=== PATIENT | female | born 1975 | race Caucasian/White ===

== ENCOUNTER 2021-05-15 21:22 | Inpatient (IN) | payer MEDICAID, SELFPAY ==
--- NOTE | ~2021-05-15 | XR_ITS ---
EXAMINATION: XR CHEST CLINICAL INFORMATION: Shortness of breath COMPARISON: Chest x-ray 04/30/2020 TECHNIQUE: 2 views of the chest were obtained. FINDINGS: There is increased interstitial lung markings and prominent central hilar vessels consistent with interstitial edema, mild congestive heart failure. No overt pulmonary edema. No large pleural effusion. Cardiac mediastinal contours are normal. Heart size is normal. XR/XR chest 2V IMPRESSION: Mild congestive heart failure with interstitial edema.
[2021-05-15 21:36] VITALS: BP 107/60; PULSE 120; RESP 21; TEMP 36.1; O2SAT 88; BMI 24.2
--- NOTE | 2021-05-15 21:39 | ECG_ITS ---
Test Reason : DIFFICULTY BREATHING Blood Pressure : / mmHG Vent. Rate : 102 BPM Atrial Rate : 102 BPM P-R Int : 124 ms QRS Dur : 092 ms QT Int : 364 ms P-R-T Axes : 051 047 051 degrees QTc Int : 474 ms Sinus tachycardia Possible Left atrial enlargement Left ventricular hypertrophy with repolarization abnormality Abnormal ECG When compared with ECG of 27-MAY-2019 23:49, Non-specific change in ST segment in Anterolateral leads Nonspecific T wave abnormality now evident in Inferior leads Nonspecific T wave abnormality, worse in Anterolateral leads Referred By: Melyssa Sim Electronically Signed By:Bryan Grigsby
--- NOTE | 2021-05-15 21:40 | ED.SOB ---
HPI - SOB/Dyspnea General Chief Complaint: Dyspnea Stated Complaint: sob Time Seen by Provider: 05/15/21 21:39 Source: patient Mode of arrival: EMS History of Present Illness HPI Narrative: This is a 45-year-old female with history of CKD and reports shortness of breath and productive cough of green, foul-smelling sputum for 9 days as well as subjective fevers and increasing shortness of breath with subsequent development of chest wall pain on deep inspiration. 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 Related Data Allergies Allergy/AdvReac Type Severity Reaction Status Date / Time tramadol [TRAMADOL] Allergy Intermediate SWELLING Unverified 08/10/20 16:45 UP OF BILATERAL HANDS acetaminophen [ACETAMINOPHEN] AdvReac Mild VOMITTING Unverified 08/10/20 16:45 Review of Systems Review of Systems: Pertinent positives and negatives as stated in HPI 10 point review of systems is otherwise negative. PMFSH Past Medical History Source: nursing notes reviewed Medical History (Updated 05/16/21 @ 03:18 by Melyssa Sim MD) Asthma Drug abuse in remission Social History Social History Alcohol intake: never Patient Tobacco Use Status: Current everyday Tobacco user Use of substances other than those prescribed or required for medical reasons: No Any prior treatment program specific to substance use: Yes (sober 9 months) Advance Directives: No Advance Directives Information Provided: Yes Patient : No Physical Exam Vital Signs: Vital Signs: Last Vital Signs Temp 98.9 F 05/15/21 22:42 Pulse 116 H 05/15/21 23:43 Resp 16 05/15/21 23:43 BP 103/69 05/15/21 23:43 Pulse Ox 80 L 05/16/21 00:26 Body Mass Index 24.2 VITAL SIGNS: Reviewed. GENERAL: Well developed, well nourished, in no acute distress. HEAD: Normocephalic/atraumatic EYES: PERRLA, EOMI OROPHARYNX: no oral lesions noted, posterior pharynx clear, dry mucosa NECK: Supple, no adenopathy LUNGS: Bilateral wheeze as well as scattered rhonchi and decreased breath sounds on the right when compared to left CARDIOVASCULAR: Regular rate and rhythm without noted murmurs ABDOMEN: Soft, non-tender, non-distended with bowel sounds. SKIN: Inspection of the skin reveals no rashes, but track garcia scarred over from prior IVDA NEUROLOGIC: Alert and oriented x 4. Strength and sensation to light touch were grossly intact x 4. Course Course Course Narrative: 2143: This is a 45-year-old female with history and clinical presentation consistent with bronchitis and possible pneumonia and suspect underlying COPD. 0010: After extensive discussion with patient regarding leaving against medical advice and evaluation that patient's oxygen on room air was 78% with a good pleth and correlation with the court recording monitor, the decision was made that patient was likely mildly confused secondary to hypoxia and that she should be sectioned for her own safety. 0015: Nursing airplane pilot supervisor notified. 0030: Section 12 was written under concerns for health with the determination based on capacity secondary to hypoxia. In addition, is at bedside and is providing additional collaboration with ER personnel, and care team pharmaceutical sales representative has been consult at for additional evaluation. At present patient is being encouraged to keep the oxygen in place. 0200: On discussion with the care team pharmaceutical sales representative it was determined that Section 12 could not be written unless patient has concomitant history of any form of mental illness and on review of all prior visits there is no mention of anxiety or other mental illness diagnoses. Therefore, the Section 12 is revoked and Case Management will be consulted to establish health care proxy as it is still determined that this patient does not have capacity secondary to medical condition of hypoxia on room air to 78%. Review of all investigations with mixed picture of pulmonary congestion identified on chest x-ray and CO2 retention as well as receiving IV antibiotics, sepsis fluids, and VBG was noted to have a pCO2 of 59 and she received albuterol treatment and in discussion with the inpatient hospitalist he was informed that patient did not receive steroids at this time. Inpatient hospitalist is agreeable for admission. MDM - SOB/Dyspnea Lab Data Result diagrams: 05/15/21 22:30 05/15/21 22:30 Labs: Lab Results 05/15/21 05/15/21 05/15/21 Range/Units 22:21 22:30 22:30 WBC 11.7 H (4.8-10.8) X10*3/uL RBC 4.27 (4.20-5.50) X10*6/uL Hgb 10.6 L (12.0-16.0) g/dl Hct 35.1 L (37-47) % MCV 82.2 (80-98) fL MCH 24.8 L (27.0-33.0) pg MCHC 30.2 L (31.0-35.0) g/dl RDW 15.8 (11.0-16.0) % Plt Count 417 H (160-400) X10*3/uL MPV 9.3 L (9.4-12.3) fL Immature Gran % (Auto) 1.4 H (0.0-0.4) % Neut % (Auto) 72.6 (45-73) % Lymph % (Auto) 19.4 L (20-40) % [place] % (Auto) 3.5 (2-11) % Eos % (Auto) 2.8 (0-4) % Baso % (Auto) 0.3 (0-2) % Lymph # (Auto) 2.3 (1.2-4.9) X10*3/uL [place] # (Auto) 0.4 (0.1-1.2) X10*3/uL Eos # (Auto) 0.3 (0.0-0.4) X10*3/uL Baso # (Auto) 0.0 (0.0-0.2) X10*3/uL Abs Immat Gran (auto) 0.16 H (0.00-0.03) X10*3/uL Absolute Neuts (auto) 8.5 H (2.0-8.3) X10*3/uL Absolute Nucleated RBC 0.000 (0.0-0.012) X10*3/uL Nucleated RBC % (auto) 0.0 (0.0-0.2) /100WBC VBG pH (7.32-7.43) VBG pCO2 mmHg VBG pO2 mmHg VBG HCO3 (22-26) mmol/L VBG O2 Saturation % VBG Base Excess mmol/L Sodium 141 (135-145) mmol/L Potassium 3.4 (3.3-5.1) mmol/L Chloride 97 (96-108) mmol/L Carbon Dioxide 32 H (22-29) mmol/L Anion Gap 15 (12-20) BUN 10 (9-16) mg/dL Creatinine 0.81 (0.5-1.4) mg/dL Estim Creat Clear Calc 71.7 Estimated GFR > 60 Random Glucose 93 (60-115) mg/dL Lactic Acid (0.5-2.0) mmol/L Calcium 9.0 (8.4-10.2) mg/dL Total Bilirubin 0.6 (0.0-1.0) mg/dL AST 13 (5-31) U/L ALT < 6 (0-31) U/L Alkaline Phosphatase 127 H (39-117) U/L Troponin I High Sens (<3.5-17.0) ng/L B-Natriuretic Peptide (<100) pg/mL Total Protein 8.3 H (6.5-8.0) g/dL Albumin 3.5 (3.5-5.0) g/dL COVID-19 (NEGRITO) Negative (Negative) COVID-19 Clin Com See Note 05/15/21 05/15/21 05/15/21 Range/Units 22:30 22:30 22:45 WBC (4.8-10.8) X10*3/uL RBC (4.20-5.50) X10*6/uL Hgb (12.0-16.0) g/dl Hct (37-47) % MCV (80-98) fL MCH (27.0-33.0) pg MCHC (31.0-35.0) g/dl RDW (11.0-16.0) % Plt Count (160-400) X10*3/uL MPV (9.4-12.3) fL Immature Gran % (Auto) (0.0-0.4) % Neut % (Auto) (45-73) % Lymph % (Auto) (20-40) % [place] % (Auto) (2-11) % Eos % (Auto) (0-4) % Baso % (Auto) (0-2) % Lymph # (Auto) (1.2-4.9) X10*3/uL [place] # (Auto) (0.1-1.2) X10*3/uL Eos # (Auto) (0.0-0.4) X10*3/uL Baso # (Auto) (0.0-0.2) X10*3/uL Abs Immat Gran (auto) (0.00-0.03) X10*3/uL Absolute Neuts (auto) (2.0-8.3) X10*3/uL Absolute Nucleated RBC (0.0-0.012) X10*3/uL Nucleated RBC % (auto) (0.0-0.2) /100WBC VBG pH 7.41 (7.32-7.43) VBG pCO2 59 mmHg VBG pO2 45 mmHg VBG HCO3 37 H (22-26) mmol/L VBG O2 Saturation 73.0 % VBG Base Excess 11.2 mmol/L Sodium (135-145) mmol/L Potassium (3.3-5.1) mmol/L Chloride (96-108) mmol/L Carbon Dioxide (22-29) mmol/L Anion Gap (12-20) BUN (9-16) mg/dL Creatinine (0.5-1.4) mg/dL Estim Creat Clear Calc Estimated GFR Random Glucose (60-115) mg/dL Lactic Acid 1.4 (0.5-2.0) mmol/L Calcium (8.4-10.2) mg/dL Total Bilirubin (0.0-1.0) mg/dL AST (5-31) U/L ALT (0-31) U/L Alkaline Phosphatase (39-117) U/L Troponin I High Sens < 3.5 (<3.5-17.0) ng/L B-Natriuretic Peptide 18 (<100) pg/mL Total Protein (6.5-8.0) g/dL Albumin (3.5-5.0) g/dL COVID-19 (NEGRITO) (Negative) COVID-19 Clin Com ECG Data Attestation: I personally reviewed and interpreted this ECG as follows: Prior ECG tracings: available for review (05/27/2019 changes consistent with repolarization otherwise unchanged) Interpretation: Sinus tachycardia, HR-102, no evidence of acute ischemia, [place]/QRS/QTC are within normal limits. Discharge Plan Discharge Clinical Impression: COPD exacerbation, Hypoxia, Pneumonia, Acute hypoxemic respiratory failure Patient Disposition: Admitted As Inpatient
--- NOTE | 2021-05-15 22:18 | PC.NURSE ---
Ekg completed, labs being drawn and Iv placed. pt placed on monitor
[2021-05-15 22:37] LABS: MANUAL DIFF FLAG NO
[2021-05-15 22:39] LABS: Basophils Percent Auto 0.3 % (0-2); Eosinophils Absolute Auto 0.3 X10*3/uL (0.0-0.4); Eosinophils Percent Auto 2.8 % (0-4); Hematocrit 35.1 % (37-47); Hemoglobin 10.6 g/dl (12.0-16.0); Imm Gran Abs Auto 0.16 X10*3/uL (0.00-0.03); Imm Gran Pct Auto 1.4 % (0.0-0.4); Lymphocytes Absolute Auto 2.3 X10*3/uL (1.2-4.9); Lymphocytes Percent Auto 19.4 % (20-40); Mean Corpuscular HGB Conc 30.2 g/dl (31.0-35.0); Mean Corpuscular Hemoglobin 24.8 pg (27.0-33.0); Mean Corpuscular Volume 82.2 fL (80-98); Mean Platelet Volume 9.3 fL (9.4-12.3); Monocytes Absolute Auto 0.4 X10*3/uL (0.1-1.2); Monocytes Percent Auto 3.5 % (2-11); Neutrophils Absolute Auto 8.5 X10*3/uL (2.0-8.3); Neutrophils Percent Auto 72.6 % (45-73); Platelet Count 417 X10*3/uL (160-400); Red Blood Count 4.27 X10*6/uL (4.20-5.50); Red Cell Distribution Width 15.8 % (11.0-16.0); White Blood Count 11.7 X10*3/uL (4.8-10.8)
[2021-05-15 22:40] VITALS: O2SAT 77
[2021-05-15 22:42] VITALS: BP 93/53; PULSE 95; RESP 20; TEMP 37.2; O2SAT 94
[2021-05-15 22:44] LABS: COVID-19 Test Negative (Negative)
[2021-05-15] MEDS: Albuterol Sulfate (0.083%) 2.5 MG/3 ML VIAL.NEB 7.5 MG INHALE (22:49)
--- NOTE | 2021-05-15 22:50 | PC.NURSE ---
THIS RN WAS IN PT ROOM PLACING IV VIA U/C, PT WAS BREATHING RA, OCCASIONAL DRY COUGH, BREATHING WITH EASE. WHEN FINISHED SPO2 PROBE PLACE ON PT'S FINGER, W/ REGULAR EVEN PLETH PT SPO2 AT 77%, PT PLACED ON 6L O2 NC, SPO2 SLOWLY INCREASED TO 96%, O2 TITRATED DOWN TO 3L, RT TO BEDSIDE TO ADMINISTER UPDRAFT, DR LONG NOTIFIED.
[2021-05-15 22:52] VITALS: PULSE 91; O2SAT 95
[2021-05-15 22:53] LABS: Venous Blood Gas Refer to POC result
[2021-05-15 22:53] LABS: VBG Base Excess 11.2 mmol/L; VBG HCO3 37 mmol/L (22-26); VBG pCO2 59 mmHg; VBG pH 7.41 (7.32-7.43); VBG pO2 45 mmHg
[2021-05-15 22:58] LABS: Lactic Acid 1.4 mmol/L (0.5-2.0)
[2021-05-15] MEDS: Furosemide 20 MG/2 ML VIAL IVPUSH (23:01)
[2021-05-15] MEDS: SODIUM CHLORIDE 1863 ML IVCONT (23:03)
[2021-05-15 23:04] LABS: Alanine Aminotransferase < 6 U/L (0-31); Albumin Level 3.5 g/dL (3.5-5.0); Alkaline Phosphatase 127 U/L (39-117); Anion Gap 15 (12-20); Aspartate Amino Transferase 13 U/L (5-31); Bilirubin Total 0.6 mg/dL (0.0-1.0); Blood Urea Nitrogen 10 mg/dL (9-16); Carbon Dioxide 32 mmol/L (22-29); Chloride 97 mmol/L (96-108); Creatinine Clr Calc Pharmacy 71.7; Estimated Glomerular Filt Rate > 60; Glucose Random 93 mg/dL (60-115); Potassium 3.4 mmol/L (3.3-5.1); Sodium 141 mmol/L (135-145); Total Protein 8.3 g/dL (6.5-8.0)
--- NOTE | 2021-05-15 23:12 | PC.NURSE ---
PT PLACED ON MONITOR, LABS SENT AND IV PLACE. RESPIRATORY THERAPIST IN TO SEE PT.
[2021-05-15 23:38] LABS: Troponin-I High Sensitivity < 3.5 ng/L (<3.5-17.0)
--- NOTE | 2021-05-15 23:42 | PC.NURSE ---
pt ambulated to the bathroom with steady gait. on return to bed sat 88% on room air. pt placed on 3l nc sat improved to 93% pt has a nonprod cough.
[2021-05-15 23:43] VITALS: BP 103/69; PULSE 116; RESP 16; O2SAT 93
[2021-05-15 23:51] LABS: B Type Natriuretic Peptide 18 pg/mL (<100)
[2021-05-16] VITALS (7 sets, daily range): BP systolic 90–112; BP diastolic 54–76; PULSE 63–97; RESP 16–23; O2SAT 80–95
--- NOTE | 2021-05-16 00:39 | PC.NURSE ---
pt for the last hour has been asking to leave after she made a phone call home. pt sat 78% on room air. Dr Sim and Dr thompson and clerical warehouseman have talked with the pt with her at her bed side. pt states she wants to griev and go home to her 2 small dogs that she calls her children. pt testing with walking on room air and pt sat did not improve.
--- NOTE | 2021-05-16 02:05 | PC.NURSE ---
ASSUMED CARE OF PT. PT RETURNS FROM RESTROOM AND PT MOVED TO ROOM #6 FOR OBSERVATION. PT CHG INTO GOWN AND PLACED ON MONITOR WITH A HR OF 91. PT IS A DIFFICULT STICK AND TRYING TO REPLACE IV THAT WAS PULLED OUT. PT AWAITING FOR ANTIBIOTICS. PT ON 4L NC WITH A PO OF 95%. WILL CONTINUE TO MONITOR PT.
--- NOTE | 2021-05-16 02:31 | PC.NURSE ---
PT REMAINS CALM AND COOPERATIVE IN ROOM. IV PLACED TO LEFT SHOULDER AREA, PT MEDICATED WITH ANTIBIOTICS PER EMAR. PT REFUSING NICOTINE PATCH AT THIS TIME.
[2021-05-16] MEDS: Piperacillin Sodium/Tazobactam 3.375 GM in 0.9 % Sodium Chloride 50 ML IV (02:36)
[2021-05-16] MEDS: cefTRIAXone sodium 1 GM in 0.9 % Sodium Chloride 50 ML IV (03:00)
--- NOTE | 2021-05-16 03:01 | P.HPHOSP_ITS ---
History of Present Illness Date of Service: 05/16/21 Chief Complaint: SOB 45-year-old female with a past medical history of IV drug abuse, polysubstance abuse-reported she lost use 90 days ago; tobacco dependence, presented to the hospital today with a chief complaint of shortness of breath. Patient reported that for the past 9 days she has been having shortness of breath which gradually worsening, also complains of dyspnea on exertion; mentions that she has been coughing a lot with sputum production; and she also complains of posttussive chest discomfort. Denies any abdominal pain. Mentioned that few episodes of diarrhea, denies any blood in the stool. Mentioned that for the same period of time she has changed her kiran, became husky attributed to severe coughing; denies any dysphagia or odynophagia. Mentions that she has not been eating good. Also complains of generalized weakness and swelling in the legs. Denies any urinary symptoms. Review of all other systems is negative except mentioned above ER course: Per ER team patient noted to be hypoxic to 78% at 1 time, subsequently placed on supplemental oxygen; patient oxygenation improved on supplemental oxygen; patient 1 time wanted to leave against medical advice-ER physician documented patient was not appropriate since at that time and decided patient lacked capacity, patient kept on medical hold. ER physician also mentioned that COVID-19 are negative; chest x-ray concern for congestion; patient was given Lasix. Also per ER physician based on her presentation concern for pneumonia, given antibiotics and fluids. [facility] Medical History (Updated 05/16/21 @ 03:18 by Melyssa Sim MD) Asthma Drug abuse in remission Social History Alcohol intake: never Patient Tobacco Use Status: Current everyday Tobacco user Use of substances other than those prescribed or required for medical reasons: No Any prior treatment program specific to substance use: Yes (sober 9 months) Advance Directives: No Advance Directives Information Provided: Yes Patient : No Meds Allergies Allergy/AdvReac Type Severity Reaction Status Date / Time tramadol [TRAMADOL] Allergy Intermediate SWELLING Unverified 08/10/20 16:45 UP OF BILATERAL HANDS acetaminophen [ACETAMINOPHEN] AdvReac Mild VOMITTING Unverified 08/10/20 16:45 Active Medications: Current Medications Generic Name Dose Route Start Last Admin Trade Name Freq PRN Reason Stop Dose Admin Acetaminophen 650 mg 05/16/21 02:56 Acetaminophen 325 Mg Tablet PO Q6H PRN Pain, Mild (Pain Scale 1-3) Albuterol/Ipratropium 3 ml 05/16/21 08:00 Albuterol/Iprat 2.5/0.5mg 3 Ml Ampul.Neb INHALE RQ4H WHILE AWAKE [facility] Azithromycin 500 mg 05/16/21 03:00 Azithromycin 500 Mg Tablet PO Q24H [facility] Enoxaparin Sodium 40 mg 05/16/21 03:00 Enoxaparin Sodium 40 Mg/0.4 Ml Syringe SUBCUT Q24H [facility] Famotidine 20 mg 05/16/21 09:00 Famotidine/Pf 20 Mg/2 Ml Vial IVPUSH BID [facility] Ceftriaxone Sodium 1 gm/ 50 mls @ 100 mls/hr 05/16/21 03:00 Sodium Chloride IV Q24H [facility] Methylprednisolone Sodium Succinate 40 mg 05/16/21 03:00 Methylprednisolone Sod Succ 40 Mg/Ml Vial IVPUSH Q6H [facility] Senna 17.2 mg 05/16/21 02:56 Sennosides 8.6 Mg Tablet PO BEDTIME PRN Constipation Sodium Chloride 3 ml 05/16/21 08:00 0.9 % Sodium Chloride Flush 3 Ml Syringe IVFLUSH QSHIFT [facility] Home Medications Medication Instructions Recorded Confirmed Last Taken Type No Known Home Meds 05/16/21 05/16/21 Unknown History Physical Exam Vital Signs and Narrative: Vital Signs: Last Vital Signs Temp 98.9 F 05/15/21 22:42 Pulse 116 H 05/15/21 23:43 Resp 16 05/15/21 23:43 BP 103/69 05/15/21 23:43 Pulse Ox 80 L 05/16/21 00:26 Body Mass Index 24.2 Gen: Appears be in no acute distress, voice is husky, speaks in full sentences, on supplemental oxygen; in bed HEENT: NCAT, dry mucosa. Pulmonary: Slightly diminished breath sounds, noted and scattered end- expiratory wheezing; CVS: Normal S1-S2 Abdomen: BS+, Soft, Nontender Extremities: Warm well perfused; trace pedal edema Neuro: Alert and awake.; grossly nonfocal; oriented x3 Results Labs CBC and Chem 7: 05/16/21 03:55 05/16/21 03:55 Labs: Laboratory Results - last 24 hr 05/15/21 05/15/21 05/15/21 22:21 22:30 22:30 MCV 82.2 MCH 24.8 L MCHC 30.2 L RDW 15.8 Plt Count 417 H MPV 9.3 L Immature Gran % (Auto) 1.4 H Neut % (Auto) 72.6 Lymph % (Auto) 19.4 L [place] % (Auto) 3.5 Eos % (Auto) 2.8 Baso % (Auto) 0.3 Lymph # (Auto) 2.3 [place] # (Auto) 0.4 Eos # (Auto) 0.3 Baso # (Auto) 0.0 Abs Immat Gran (auto) 0.16 H Absolute Neuts (auto) 8.5 H Absolute Nucleated RBC 0.000 Nucleated RBC % (auto) 0.0 VBG pH VBG pCO2 VBG pO2 VBG HCO3 VBG O2 Saturation VBG Base Excess Anion Gap 15 Estim Creat Clear Calc 71.7 Estimated GFR > 60 Random Glucose 93 Lactic Acid Calcium 9.0 Total Bilirubin 0.6 AST 13 ALT < 6 Alkaline Phosphatase 127 H Troponin I High Sens B-Natriuretic Peptide Total Protein 8.3 H Albumin 3.5 COVID-19 (NEGRITO) Negative COVID-19 Clin Com See Note 05/15/21 05/15/21 05/15/21 22:30 22:30 22:45 MCV MCH MCHC RDW Plt Count MPV Immature Gran % (Auto) Neut % (Auto) Lymph % (Auto) [place] % (Auto) Eos % (Auto) Baso % (Auto) Lymph # (Auto) [place] # (Auto) Eos # (Auto) Baso # (Auto) Abs Immat Gran (auto) Absolute Neuts (auto) Absolute Nucleated RBC Nucleated RBC % (auto) VBG pH 7.41 VBG pCO2 59 VBG pO2 45 VBG HCO3 37 H VBG O2 Saturation 73.0 VBG Base Excess 11.2 Anion Gap Estim Creat Clear Calc Estimated GFR Random Glucose Lactic Acid 1.4 Calcium Total Bilirubin AST ALT Alkaline Phosphatase Troponin I High Sens < 3.5 B-Natriuretic Peptide 18 Total Protein Albumin COVID-19 (NEGRITO) COVID-19 Clin Com Imaging Radiologist's Impressions: Impressions Chest X-Ray 05/15/21 21:39 IMPRESSION: Mild congestive heart failure with interstitial edema. Assessment and Plan (1) COPD exacerbation: Status: Acute 45-year-old female with a past medical history of substance abuse, tobacco dependence, recent history of UTI presented to the hospital with a chief complaint of shortness of breath. Noted to be hypoxic. Acute Hypoxic respiratory failure: Likely in the setting of pneumonia versus COPD versus other pathology. Patient oxygenation improved on supplemental oxygen via nasal cannula. Spoke to the RN to keep a goal oxygen saturation 93%. Patient currently not in respiratory distress. Reactive airway disease: Suspected COPD. Patient has been a long-time smoker. Recommended outpatient PFTs. Will give the patient on Solu-Medrol IV. Nebulizations standing and p.r.n. Pulmonary consult for close follow-up. Dyspnea: Patient's chest x-ray showed congestion. ProBNP within normal limits. Troponin negative. EKG nonischemic. Patient reports cough with sputum production and posttussive chest discomfort. Will keep the patient on empiric antibiotics for presumed pneumonia. Will obtain CT chest with PE protocol. Telemetry Cycle cardiac enzymes Echocardiogram Will defer to the a.m. team to consider Cardiology consult based on the above results. Tobacco dependence: Counseled on smoking cessation. Polysubstance abuse: Patient currently denies any. Diarrhea: Will send stool studies if the patient has any more diarrhea. GI prophylaxis: Pepcid DVT prophylaxis: Lovenox Code status: Full code Quality Stroke Does the patient have a stroke diagnosis?: No VTE Prior VTE?: No VTE Risk Level:: Medical - moderate - high VTE Device Contraindication: N/A - Device Ordered VTE Drug Contraindication: N/A - Med Ordered
[2021-05-16] MEDS: Azithromycin 500 MG TABLET PO (03:30)
--- NOTE | 2021-05-16 03:44 | PC.NURSE ---
at 2342 the pt ambulated to the bathroom, she started to take her pocket book and with a request to leave it at the bed side the pt did so. this rn also was with the pt during the time she was in the bathroom at the request of the pt for me to stay with her.
[2021-05-16 04:07] LABS: MANUAL DIFF FLAG NO
[2021-05-16 04:09] LABS: Basophils Percent Auto 0.3 % (0-2); Eosinophils Absolute Auto 0.2 X10*3/uL (0.0-0.4); Eosinophils Percent Auto 2.1 % (0-4); Hematocrit 32.8 % (37-47); Hemoglobin 9.8 g/dl (12.0-16.0); Imm Gran Abs Auto 0.07 X10*3/uL (0.00-0.03); Imm Gran Pct Auto 0.6 % (0.0-0.4); Lymphocytes Absolute Auto 1.6 X10*3/uL (1.2-4.9); Lymphocytes Percent Auto 14.2 % (20-40); Mean Corpuscular HGB Conc 29.9 g/dl (31.0-35.0); Mean Corpuscular Hemoglobin 24.6 pg (27.0-33.0); Mean Corpuscular Volume 82.2 fL (80-98); Mean Platelet Volume 9.6 fL (9.4-12.3); Monocytes Absolute Auto 0.5 X10*3/uL (0.1-1.2); Neutrophils Absolute Auto 8.8 X10*3/uL (2.0-8.3); Neutrophils Percent Auto 78.8 % (45-73); Platelet Count 378 X10*3/uL (160-400); Red Blood Count 3.99 X10*6/uL (4.20-5.50); Red Cell Distribution Width 15.7 % (11.0-16.0); White Blood Count 11.2 X10*3/uL (4.8-10.8)
[2021-05-16] MEDS: Enoxaparin Sodium 40 MG/0.4 ML SYRINGE SUBCUT (04:30)
[2021-05-16] MEDS: methylPREDNISolone Sod Succ 40 MG/ML VIAL IVPUSH (04:30)
[2021-05-16 04:33] LABS: Anion Gap 15 (12-20); Blood Urea Nitrogen 10 mg/dL (9-16); Calcium 8.4 mg/dL (8.4-10.2); Carbon Dioxide 32 mmol/L (22-29); Chloride 95 mmol/L (96-108); Creatinine Clr Calc Pharmacy 74.5; Estimated Glomerular Filt Rate > 60; Glucose Random 100 mg/dL (60-115); Potassium 2.9 mmol/L (3.3-5.1); Sodium 139 mmol/L (135-145)
[2021-05-16 04:38] LABS: Troponin-I High Sensitivity < 3.5 ng/L (<3.5-17.0)
--- NOTE | 2021-05-16 05:48 | PC.NURSE ---
PT WAKES FROM SLEEPING. PT REMAINS ON MONITOR WITH A HR OF 85, PO 92% ON 2-3L NC, B/P 103/60. PT DENIES ANY COMPLAINTS, REQUESTING SOMETHING TO DRINK. PT IN NAD. PT MEDICATED PER EMAR.
[2021-05-16] MEDS: Albuterol/Iprat 2.5/0.5MG 3 ML AMPUL.NEB INHALE (08:17)
--- NOTE | 2021-05-16 08:38 | PC.NURSE ---
PT A/O X 3 NO SOB/LILI NOTED. PT GOT OOB EARLIER TO BATHROOM AND BTB. AT 0836 PT WAS NOT AT BEDSIDE, PT D/C HER HEPLOCK WHICH WAS FOUND ON THE BED, GOT DRESSED AND AMBULATED INDEPENDENTLY, PT WAS REDIRECTED BACK TO BED.
--- NOTE | 2021-05-16 08:41 | PC.NURSE ---
DR. HERRERA AT BEDSIDE, PT IS ADAMANT ABOUT LEAVING STATING THAT SHE NEEDS TO TAKE CARE HER DOGS (PETS) AT HOME. DR. HERRERA WITH THIS RN AT BEDSIDE THOROUGHLY EXPLAINED ALL RISKS OF LEAVING AMA. PT SIGNED AMA FORM AND WAS ADVISED/ENCOURAGED TO RETURN TO ED FOR EVAL/TX ANY TIME IF SHE NEEDS IT. PT DRRANK HER JUICE FOR BREAKFAST. PT IS LUCID. SPEECH CLEAR. A/O X 3.
--- NOTE | 2021-05-16 08:58 | MHC.CM.PN ---
Patient left AMA before she could be seen by Case Management.
--- NOTE | 2021-05-16 09:02 | PM.DS ---
DS: Providers Provider Date of Service: 05/16/21 Date of admission: 05/16/21 02:56 Primary care physician: [facility] Consults: 05/16/21 00:41 Consult to Care Team Stat Comment: Reason for consultation: Patient hypoxic and lacks capacity, but would appreciate additional eval 05/16/21 02:56 Consult to Pulmonology Routine Consulting Provider: Kedar Obrien Reason for consultation: hypoxia; ?COPD DS: Diagnosis Discharge Diagnosis (1) COPD exacerbation: Status: Acute DS: Medications Discharge Medications Home Medications: Home Medications Medication Instructions Recorded Confirmed No Known Home Meds 05/16/21 05/16/21 DS: Summary Hospital Course Hospital Course: Patient was admitted this morning with acute hypoxic resp failure d/t COPD. She decided instead of coming to the hospital to leave to go take her of dogs. At this point her oxygen saturation has improved to 90% on room. She is alert and oriented to self time, place and person and aware of her situation and says that she knows she is not making the best decision but she has to and she will come back if she is worst. I told her that her condition is not optimal for discharge, as her work up is not complete and by leaving AMA, her condition can get worse to the point of needing higher level of care and even the possibility of . She accepts full responsibility and is able repeat the conversation back in her own words. I offer to prescribe inhalers but she says she has some and will send Prednisone prescription to the pharmacy for her. Advised to stop smoking as wll. She would not wait for instruction.. The conversation was witness RN Jeannie and Taj. Her oxygen saturationa at that time was 90% on room air Time Spent with Patient Time attestation: Total time spent providing and/or coordinating discharge services: Discharge coordination time: Less than 30 minutes Quality: Stroke Does the patient have a stroke diagnosis?: No Physical Exam Vital Signs: Vital Signs: Last Vital Signs Temp 98.9 F 05/15/21 22:42 Pulse 97 05/16/21 08:41 Resp 16 05/16/21 08:41 BP 112/76 05/16/21 08:00 Pulse Ox 90 L 05/16/21 08:41 Body Mass Index 24.2 General: AO X 3, no acute distress, speaks in full sentences Resp: normal respiratory effort, no accessory muscle use CVS: S1,S2,RRR Neuro: motor grossly intact Psych: appropriate affect DS: Data Data Completed and Pending Labs on day of discharge: Laboratory Results - last 24 hr 05/15/21 05/15/21 05/15/21 22:21 22:30 22:30 WBC 11.7 H RBC 4.27 Hgb 10.6 L Hct 35.1 L MCV 82.2 MCH 24.8 L MCHC 30.2 L RDW 15.8 Plt Count 417 H MPV 9.3 L Immature Gran % (Auto) 1.4 H Neut % (Auto) 72.6 Lymph % (Auto) 19.4 L Sargent % (Auto) 3.5 Eos % (Auto) 2.8 Baso % (Auto) 0.3 Lymph # (Auto) 2.3 Sargent # (Auto) 0.4 Eos # (Auto) 0.3 Baso # (Auto) 0.0 Abs Immat Gran (auto) 0.16 H Absolute Neuts (auto) 8.5 H Absolute Nucleated RBC 0.000 Nucleated RBC % (auto) 0.0 VBG pH VBG pCO2 VBG pO2 VBG HCO3 VBG O2 Saturation VBG Base Excess Sodium 141 Potassium 3.4 Chloride 97 Carbon Dioxide 32 H Anion Gap 15 BUN 10 Creatinine 0.81 Estim Creat Clear Calc 71.7 Estimated GFR > 60 Random Glucose 93 Lactic Acid Calcium 9.0 Total Bilirubin 0.6 AST 13 ALT < 6 Alkaline Phosphatase 127 H Troponin I High Sens B-Natriuretic Peptide Total Protein 8.3 H Albumin 3.5 COVID-19 ([facility]) Negative COVID-19 Clin Com See Note 05/15/21 05/15/21 05/15/21 22:30 22:30 22:45 WBC RBC Hgb Hct MCV MCH MCHC RDW Plt Count MPV Immature Gran % (Auto) Neut % (Auto) Lymph % (Auto) Sargent % (Auto) Eos % (Auto) Baso % (Auto) Lymph # (Auto) Sargent # (Auto) Eos # (Auto) Baso # (Auto) Abs Immat Gran (auto) Absolute Neuts (auto) Absolute Nucleated RBC Nucleated RBC % (auto) VBG pH 7.41 VBG pCO2 59 VBG pO2 45 VBG HCO3 37 H VBG O2 Saturation 73.0 VBG Base Excess 11.2 Sodium Potassium Chloride Carbon Dioxide Anion Gap BUN Creatinine Estim Creat Clear Calc Estimated GFR Random Glucose Lactic Acid 1.4 Calcium Total Bilirubin AST ALT Alkaline Phosphatase Troponin I High Sens < 3.5 B-Natriuretic Peptide 18 Total Protein Albumin COVID-19 ([facility]) COVID-19 Celect 05/16/21 05/16/21 05/16/21 03:55 03:55 03:55 WBC 11.2 H RBC 3.99 L Hgb 9.8 L Hct 32.8 L MCV 82.2 MCH 24.6 L MCHC 29.9 L RDW 15.7 Plt Count 378 MPV 9.6 Immature Gran % (Auto) 0.6 H Neut % (Auto) 78.8 H Lymph % (Auto) 14.2 L Sargent % (Auto) 4.0 Eos % (Auto) 2.1 Baso % (Auto) 0.3 Lymph # (Auto) 1.6 Sargent # (Auto) 0.5 Eos # (Auto) 0.2 Baso # (Auto) 0.0 Abs Immat Gran (auto) 0.07 H Absolute Neuts (auto) 8.8 H Absolute Nucleated RBC 0.000 Nucleated RBC % (auto) 0.0 VBG pH VBG pCO2 VBG pO2 VBG HCO3 VBG O2 Saturation VBG Base Excess Sodium 139 Potassium 2.9 L Chloride 95 L Carbon Dioxide 32 H Anion Gap 15 BUN 10 Creatinine 0.78 Estim Creat Clear Calc 74.5 Estimated GFR > 60 Random Glucose 100 Lactic Acid Calcium 8.4 D Total Bilirubin AST ALT Alkaline Phosphatase Troponin I High Sens < 3.5 B-Natriuretic Peptide Total Protein Albumin COVID-19 ([facility]) COVID-19 Celect Discharge Plan Discharge Anticipated Discharge Date/Time: 05/16/21 09:13 Patient Disposition: Left Against Medical Advice Discharge Diagnosis: COPD, possible bronchitis, Referrals: [facility] [Primary Care Provider] - 1 Week Discharge Medications: New albuterol sulfate 90 mcg/actuation HFA aerosol inhaler 2 puff inhalation QID PRN (Reason: shortness of breath or wheezing) Qty: 8.5 RF: 0 prednisone 20 mg tablet 40 mg PO DAILY 4 Days Qty: 8 RF: 0 levofloxacin 750 mg tablet 750 mg PO DAILY 5 Days Qty: 5 RF: 0 No Action No Known Home Meds RF: 0 Discharge Orders: Discharge Order (Routine); Ordered 05/16/21 Ordered By: Gildardo Powers Stand Alone Forms: Against Medical Advice Care Plan Goals: Left AMA Health Concerns: Left AMA Plan of Treatment: Left AMA Assessment: Left AMA Discharge Date/Time: 05/16/21 14:10
== END 2021-05-16 14:10 | disposition left against medical advice (07) | DRG 140 ==
LOC: HO.ED 05-16 00:43 → HO.EDOVER 05-16 03:10 → HO.IMC 05-16 12:20 → HO.EDOVER 05-16 14:08
PROVIDERS: Admitting Provider Hospitalist; Emergency Provider Student in an Organized Health Care Education/Training Program; Visit Provider Internal Medicine
DX: J44.1 Chronic obstructive pulmonary disease with (acute) exacerbation (principal); J96.01 Acute respiratory failure with hypoxia; J44.0 Chronic obstructive pulmonary disease with (acute) lower respiratory infection; J40 Bronchitis, not specified as acute or chronic; F17.210 Nicotine dependence, cigarettes, uncomplicated; Z71.6 Tobacco abuse counseling; Z20.822 Contact with and (suspected) exposure to COVID-19; Z88.5 Allergy status to narcotic agent; Z88.6 Allergy status to analgesic agent
CPT/HCPCS: 36415; 71046; 80048; 80053; 83605; 83880; 84484; 85025; 87040; 87635; 93005; 94640; 94644; 99285; J0696; J1650; J1940; J2543; J2920

== ENCOUNTER 2023-01-15 20:14 | Emergency (ER) | payer MEDICAID, SELFPAY ==
[2023-01-15 20:23] VITALS: BP 125/90; BP 129/82; PULSE 107; PULSE 117; RESP 20; TEMP 36.7; O2SAT 95; O2SAT 98; BMI 20.7
--- NOTE | 2023-01-15 20:34 | ED_ITS ---
HPI - SOB/Dyspnea General Chief Complaint: Dyspnea Stated Complaint: vx Time Seen by Provider: 01/15/23 20:17 Source: patient and EMS Mode of arrival: EMS Limitations: other (poor/ vague historian) History of Present Illness HPI Narrative: This is a 47-year-old female history of COPD, CHF presenting to the emergency department with difficulty breathing status post choking on chicken, patient reports she was eating chicken just prior to her arrival here, she called 911 because she was choking, the fire department perform the Heimlich on this patient and a moderate amount of chicken was expelled from patient's airway. Patient reports she does not feel like she is able to swallow her own secretions, she reports difficulty breathing and when I ask her if she feels like there is something in her throat she says yes and points to the middle of her trachea, she states this is never happened to her before. Patient's voice is slightly hoarse on arrival. Patient extremely anxious. Patient also complaining of upper back pain she says it is worse when she coughs to try to get the foreign body out. Denies fevers, chills, chest pain, abdominal pain, urinary/bowel incontinence/retention, weakness, saddle paresthesias, numbness and tingling. Related Data Home Medications Medication Instructions Recorded Confirmed No Known Home Meds 05/16/21 05/16/21 Allergies Allergy/AdvReac Type Severity Reaction Status Date / Time codeine [Codeine] Allergy Intermediate ITCHING, Verified 01/15/23 20:23 VOMTING, THROAT SWELLS tramadol [TRAMADOL] Allergy Intermediate BODY Verified 01/15/23 20:23 SWELLING acetaminophen Allergy Unknown Vomitting, Verified 01/15/23 20:23 [Tylenol-Codeine #3] Hives Review of Systems Review of Systems: Constitutional : No Weight loss, No Fever, No Chills, No Fatigue, No Malaise ENT/Mouth : No sore throat, No Rhinorrhea, + FB sensation in throat Eyes: No Eye Pain, No Swelling, No Redness Cardiovascular : No Chest Pain, No SOB, No Dyspnea on Exertion, No Orthopnea, No Edema, No Palpitations Respiratory : No Cough, No Sputum, No Wheezing Gastrointestinal : No Nausea, No Vomiting, No Diarrhea, No Constipation, No abdominal Pain, No Hematochezia, No Melena Genitourinary : No Dysuria, No Urinary Frequency, No Hematuria, Musculoskeletal : No joint pain, No Myalgias, No Joint Swelling, + back pain Skin : No Skin Lesions, No rash Neuro : No Weakness, No Numbness, No Dizziness, No Headache Psych : No Anxiety/Panic, No Depression All other systems reviewed and are negative Yes all other systems are reviewed and are negative [facility] Past Medical History Medical History (Updated 01/15/23 @ 22:11 by VENTURA Gomez) Asthma Drug abuse in remission Social History Social History (System 08/01/22 @ 13:26 by Sonia Yoo) Alcohol intake: never Patient Tobacco Use Status: Current everyday Tobacco user Advance Directives: No Advance Directives Information Provided: No Physical Exam Vital Signs: Vital Signs: Last Vital Signs Temp 98.0 F 01/15/23 20: Pulse 107 H 01/15/23 20:23 Resp 20 01/15/23 20:23 BP 129/82 01/15/23 20: Pulse Ox 95 01/15/23 20: O2 Del Method 01/15/23 20:23 BMI result Body Mass Index 20.7 Course Reevaluation(s) Reevaluation #1: I did speak to Dr. Louise, explained to him that we have not been able to give nitro or glucagon due to not having an IV line and it is dangerous to give these medications without a line in case patient's pressure drops. I also explained this to patient. Over 3-4 people of tried to obtain an IV on this person, patient very difficult stick. For this reason there has been a delay in giving medications. Patient has been controlling her secretions, now she states that her main complaint is or upper back pain she describes the pain to be localized to bilateral sides however not the middle. Patient does have history of IV drug abuse. Therefore making it hard to obtain labs. I explained to patient I was going to do an ultrasound-guided line. Patient very agitated and would like to leave, she speaking to me in full sentences. I explained to her it is best if she stays. However patient refusing, patient tells me she wants nothing done. I explained to her that if she has something in her throat she can choke and and go into respiratory distress. She tells me she does not want anything done at this time, and she tells me she is willing to sign out against medical advice. I did go over risks versus benefits, she verbalizes understanding she signed out against medical advice. Time: 22:08 Reevaluation #2: Prior to patient walking I did return her friend in try to convince them to stay however patient refusing. She was saturating 95% on room air at time of leaving, speaking in full sentences. Nursing staff also tried speaking to her. Time: 22:10 Medical Decision Making Medical Decision Making MDM Narrative: 2024 39-year-old female presents with foreign body sensation in throat after choking on chicken, received time like by 1st responders. Physical exam patient anxious, spitting out her secretions into a bag. Uncomfortable appearing. Concerns for possible retained foreign body in throat however at this time there is no signs of acute airway compromise or respiratory distress. Patient is speaking in full sentences with hoarse voice. Complaining of upper back pain with coughing, likely secondary to strong cough. I do not suspect epidural abscess or cauda equina on this patient. Plan at this time basic labs, PT INR, BNP, troponin. Initially upon patient's arrival she was given lani prema to swish with to see a foreign body would be expelled from throat. Unsuccessful. Patient spitting out lani prema, uncomfortable appearing. Immediately called Gastroenterology I have ordered glucagon as well as nitroglycerin. Differential Diagnosis Differential Diagnoses: The differential diagnosis associated with the presentation includes Concerns for possible retained foreign body in throat however at this time there is no signs of acute airway compromise or respiratory distress. Patient is speaking in full sentences with hoarse voice. Complaining of upper back pain with coughing, likely secondary to strong cough. I do not suspect epidural abscess or cauda equina on this patient. Admission/Observation Consideration of admission/observation: Escalation of care including admission/observation considered Consult Healthcare Provider Management of the patient was discussed with: Sterile Proc Tech (Gastroenterology) External Record Review External record reviewed: Inpatient record, Office record, Outpatient record, Prior outpatient labs, Prior outpatient radiology, Primary care record and Outside ED record Core Measures AMI core measures followed: Yes Measure exclusions: not indicated Critical Care Time Critical Care Time Critical Care Time: Yes Total Critical Care Time: 35 Attestation: I attest to this time spent taking care of the patient, obtaining history, physical, reviewing labs, imaging, speaking to my attending, speaking to specialist. Discharge Plan Discharge Clinical Impression: Sensation of foreign body in throat, Upper back pain, Anxiety, Left against medical advice Patient Disposition: Left Against Medical Advice Prescriptions: No Action No Known Home Meds
--- NOTE | 2023-01-15 20:36 | PC.NURSE ---
complaining of lung pain repeatedly. less SOB now that pt has settled. attempts to vomit w/o producing anything. states she has lung pain from heart failure and pneumonia takes pain meds at home. aware of plan for IV, nitro, labs.
--- NOTE | 2023-01-15 20:57 | PC.NURSE ---
Pt no longer c/o bolus. is stating that her back hurts. has hx of daily heroin use, 10 bags/day. didn't use today. offered recovery services and declines. very difficult IV stick. zinc furnace charger will attempt.
--- NOTE | 2023-01-15 21:41 | PC.NURSE ---
states she wants to leave. complaining of upper mid back pain. mom at bedside. pt is agreeable to waiting for IV line. this rn tried many times and awaits help from others.
== END 2023-01-15 22:15 | disposition left against medical advice (07) ==
PROVIDERS: Emergency Provider Internal Medicine
DX: R06.02 Shortness of breath (principal); M54.50 Low back pain, unspecified; M54.6 Pain in thoracic spine; F41.1 Generalized anxiety disorder; F43.0 Acute stress reaction; Z79.899 Other long term (current) drug therapy
CPT/HCPCS: 99282

== ENCOUNTER 2023-01-21 09:52 | Inpatient (IN) | payer MEDICAID, SELFPAY ==
--- NOTE | ~2023-01-21 | XR_ITS ---
EXAMINATION: XR ABDOMEN KUB CLINICAL INDICATION: Pre-MRI COMPARISON: None TECHNIQUE: AP view of the abdomen. FINDINGS: The bowel gas pattern is normal with no evidence of ileus or obstruction. Phleboliths are present in the pelvis. No unusual soft tissue calcifications are noted. No radiopaque foreign bodies are seen. The bones are unremarkable. XR/XR KUB IMPRESSION: Unremarkable examination. No radiopaque foreign bodies are seen.
--- NOTE | ~2023-01-21 | XR_ITS ---
EXAMINATION: XR CHEST CLINICAL INFORMATION: Chest pain COMPARISON: 05/15/2021 TECHNIQUE: 2 views of the chest were obtained. FINDINGS: Lungs are well expanded and clear. No airspace disease, pleural effusion or pneumothorax. Cardiac silhouette is normal in size. The pulmonary vascular pattern is normal. The visualized bones and upper abdomen are unremarkable. XR/XR chest 2V IMPRESSION: No acute pulmonary disease.
--- NOTE | ~2023-01-21 | XR_ITS ---
EXAMINATION: XR CHEST CLINICAL INFORMATION: Central line COMPARISON: 01/21/2023 TECHNIQUE: Portable AP upright FINDINGS: The right jugular line extends to the upper aspect of the right atrium. The cardiac silhouette is not significantly enlarged. The lungs are slightly hypoexpanded with no evidence of pneumothorax or pleural effusion. Peribronchial thickening is identified. XR/XR chest 1V IMPRESSION: Right jugular line reaches the upper aspect of the right atrium. No evidence of pneumothorax or pleural effusion.
--- NOTE | ~2023-01-21 | CT_ITS ---
EXAMINATION: CT ABDOMEN AND PELVIS WITH CONTRAST CLINICAL INFORMATION: Diffuse abdominal pain COMPARISON: CT abdomen 06/20/2008 TECHNIQUE: Multidetector volumetric images were obtained from the superior aspect of the liver through the pubic symphysis following administration 85 mL of Omnipaque 350 intravenous contrast. Sagittal and coronal reformatted images were obtained on the technologist's workstation. Oral contrast: No This CT examination was performed using dose optimization techniques as appropriate, variously including the following: *Automated exposure control *Adjustment of mA and/or kV according to patient size (this includes techniques or standardized protocols for targeted exams where dose is matched to indication/reason for exam; i.e. extremities or head) *Use of iterative reconstruction technique DLP: 472 mGy-cm FINDINGS: LUNG BASES: Mild cardiac enlargement. LIVER, GALLBLADDER, AND BILIARY TREE: The liver is enlarged measuring 22 cm in cephalocaudad dimension. No focal hepatic lesion or biliary ductal dilatation is present. The gallbladder is unremarkable with no evidence of radiopaque gallstones, gallbladder wall thickening, or obvious pericholecystic inflammatory changes. PANCREAS: Unremarkable. SPLEEN: Spleen is mildly enlarged at 12.5 cm in greatest dimension. ADRENAL GLANDS: Thickening of the left adrenal gland similar to 2008. No worrisome adrenal masses are seen. KIDNEYS AND URETERS: The kidneys are normal in size, shape, and attenuation. No hydronephrosis, hydroureter, or calculi seen. No perinephric stranding. BLADDER: Well distended with no masses or stones GASTROINTESTINAL TRACT: The small and large bowel are unremarkable. The appendix is unremarkable. ABDOMINAL WALL: No significant hernia is appreciated. LYMPH NODES: Normal. VASCULAR: Unremarkable. PELVIC VISCERA: The uterus and adnexa are unremarkable. Small amount of fluid is present in the cul-de-sac. OSSEOUS STRUCTURES: Unremarkable. CT/CT abdomen pelvis w IV con IMPRESSION: 1. A cause for the patient's diffuse abdominal pain has not been found. 2. Incidental note made of mild hepatosplenomegaly, stable left adrenal thickening and small amount of free fluid in the cul-de-sac. Fleischner guidelines were followed.
--- NOTE | ~2023-01-21 | CT_ITS ---
EXAMINATION: CT HEAD WITHOUT CONTRAST CLINICAL INFORMATION: Lower extremity weakness/numbness. COMPARISON: CT abdomen dated from 04/30/2020. TECHNIQUE: Contiguous axial imaging was performed from the skull base to vertex without intravenous administration of contrast. This CT examination was performed using dose optimization techniques as appropriate, variously including the following: *Automated exposure control *Adjustment of mA and/or kV according to patient size (this includes techniques or standardized protocols for targeted exams where dose is matched to indication/reason for exam; i.e. extremities or head) *Use of iterative reconstruction technique DLP: 555 mGy-cm FINDINGS: Evaluation of the inferior middle cranial fossa, posterior fossa and skull base is somewhat limited due to motion. There is no evidence of acute intracranial hemorrhage or edematous territorial infarction. There is no abnormal attenuation within the brain parenchyma. Steele-white matter differentiation is preserved. The ventricles are normal in size and configuration. No evidence for obstructive hydrocephalus. No abnormal mass effect or midline shift. No extra-axial fluid collections. No acute soft tissue or osseous abnormalities. The mastoid air cells and paranasal sinuses are clear. CT/CT head/brain wo IV con IMPRESSION: No evidence of acute intracranial hemorrhage or edematous territorial infarction with the caveat that evaluation of the inferior brain and posterior fossa is slightly limited by motion.
--- NOTE | ~2023-01-21 | XR_ITS ---
EXAMINATION: XR CHEST CLINICAL INFORMATION: Right subclavian central line attempt. Evaluate for pneumothorax. COMPARISON: Chest radiograph done earlier the same day. TECHNIQUE: Frontal view of the chest was obtained. FINDINGS: No pleural effusion or pneumothorax. Minimal atelectasis within the right lung base. No pleural effusion or pneumothorax. Stable cardiomediastinal silhouette. XR/XR chest 1V IMPRESSION: 1. No pleural effusion or pneumothorax. 2. Minimal right basilar atelectasis.
--- NOTE | ~2023-01-21 | MR_ITS ---
EXAMINATION: MR LUMBAR SPINE WITHOUT AND WITH CONTRAST CLINICAL INFORMATION: Lower extremity weakness, back pain, IV drug abuse COMPARISON: None TECHNIQUE: MRI of the lumbar spine was obtained using routine sequences with and without contrast. Intravenous contrast: Gadavist 6 mL FINDINGS: Motion degraded examination Normal anatomic alignment. No suspicious focal osseous lesion. L1 vertebral body hemangioma. There is diffuse mild T1 hypointense marrow signal. No significant marrow edema. The vertebral body heights are maintained. The intervertebral discs are of normal height and signal. The conus medullaris terminates at the level of L1-L2. The distal spinal cord is normal in appearance. The cauda equina nerve roots appear normal. No abnormal osseous or intradural enhancement. No significant abnormalities of the paraspinal musculature.. Limited evaluation of the intra-abdominal structures without significant abnormalities. The abdominal aorta is of normal contour and caliber. SPINAL LEVELS: There is a partially visualized disc protrusion at T9-T10 which indents the ventral thecal sac but does not contribute to high-grade spinal canal stenosis. L1-L2: No significant spinal canal or neuroforaminal narrowing. L2-L3: No significant spinal canal or neuroforaminal narrowing. L3-L4: No significant spinal canal or neuroforaminal narrowing. L4-L5: No significant spinal canal or neuroforaminal narrowing. Right subarticular and foraminal disc protrusion results in right subarticular zone narrowing and moderate right neural foraminal stenosis. Mild facet arthropathy. L5-S1: No significant spinal canal or neuroforaminal narrowing. Minimal disc bulge and mild facet arthropathy. MR/MR lumbar spine wo/w con IMPRESSION: 1. No evidence of discitis/osteomyelitis, epidural abscess, or significant spinal canal stenosis. 2. Generalized signal abnormality within the bone marrow which suggests a marrow infiltration process. This is nonspecific and possible etiologies include stimulated red marrow (as can be seen with smoking, altitude, chronic anemia, etc.), chronic infection, and early phases of myelodysplastic/myeloproliferative disorders. Consider correlation with clinical history and, potentially, a CBC with blood smear. 3. Partially visualized disc protrusion at T9-T10 which indents the ventral thecal sac but does not contribute to high-grade spinal canal stenosis.
[2023-01-21 09:58] VITALS: BP 106/69; PULSE 60; O2SAT 98
--- NOTE | 2023-01-21 09:59 | ECG_ITS ---
Test Reason : CP Blood Pressure : / mmHG Vent. Rate : 063 BPM Atrial Rate : 063 BPM P-R Int : 114 ms QRS Dur : 090 ms QT Int : 476 ms P-R-T Axes : 038 019 009 degrees QTc Int : 487 ms Normal sinus rhythm with sinus arrhythmia ST & T wave abnormality, consider anterior ischemia Prolonged QT Abnormal ECG Referred By: Pari Montalvo Electronically Signed By:ADNIEL KING MD
--- NOTE | 2023-01-21 10:28 | ED.GENADULT ---
HPI - General Adult General Chief complaint: Neuro Symptoms/Deficit <Pari Montalvo NP - Last Filed: 01/21/23 18:00> Stated complaint: CHEST PAIN, HX OF ENDOCARDITIS PER EMS <Pari Montalvo NP - Last Filed: 01/21/23 18:00> Time Seen by Provider: 01/21/23 09:59 <Pari Montalvo NP - Last Filed: 01/21/23 18:00> Source: patient and EMS <Pari Montalvo NP - Last Filed: 01/21/23 18:00> Mode of arrival: EMS <Pari Montalvo NP - Last Filed: 01/21/23 18:00> Limitations: no limitations <Pari Montalvo NP - Last Filed: 01/21/23 18:00> History of Present Illness HPI narrative: Pt is a 47y/o female with PMHx of IV drug use presenting with b/l lower extremity weakness/numbness and subjective fever. Pt states the fever began two days ago and the weakness began this morning. Pt states this morning she lost sensation from her mid abdomen down her legs, causing her to almost fall. Pt states she still has sensation in her feet. Pt states in the past several days she has had chest pain, coughing, and vomiting. Pt states one week ago she had new wounds on her left arm which looked like blisters that have since scabbed over. Pt states she is currently using heroin via injection, two bundles per day, she did not use any drugs this morning. <Pari Montalvo NP - Last Filed: 01/21/23 18:00> Related Data Home medications: Home Medications Medication Instructions Recorded Confirmed No Known Home Meds 05/16/21 05/16/21 <Pari Montalvo NP - Last Filed: 01/21/23 18:00> Allergies/adverse reactions: Allergies Allergy/AdvReac Type Severity Reaction Status Date / Time codeine [Codeine] Allergy Intermediate ITCHING, Verified 01/15/23 20:23 VOMTING, THROAT SWELLS tramadol [TRAMADOL] Allergy Intermediate BODY Verified 01/15/23 20:23 SWELLING acetaminophen Allergy Unknown Vomitting, Verified 01/15/23 20:23 [Tylenol-Codeine #3] Hives <Pari Montalvo NP - Last Filed: 01/21/23 18:00> Review of Systems Review of Systems: Yes all other systems are reviewed and are negative <Pari Montalvo NP - Last Filed: 01/21/23 18:00> Constitutional: Constitutional: Reports no additional constitutional complaints, Denies body ache(s), Denies chills, Reports fever(s), Denies headache(s) and Reports weakness <Pari Montalvo NP - Last Filed: 01/21/23 18:00> Eyes: Eyes: Reports no additional eye complaints and Denies change in vision <Pari Montalvo NP - Last Filed: 01/21/23 18:00> ENT: Reports system reviewed and no additional complaints, except as documented, Denies dizziness, Denies headache(s), Denies nasal congestion, Denies nasal discharge and Denies neck pain <Pari Montalvo NP - Last Filed: 01/21/23 18:00> Cardiovascular: Cardiovascular: Reports chest pain, Denies leg edema and Denies dyspnea <Pari Montalvo NP - Last Filed: 01/21/23 18:00> Respiratory: Respiratory: Reports cough and Denies dyspnea <Pari Montalvo NP - Last Filed: 01/21/23 18:00> Gastrointestinal: Gastrointestinal: Denies abdominal pain, Reports diarrhea, Reports nausea and Reports vomiting <Pari Montalvo NP - Last Filed: 01/21/23 18:00> Genitourinary: Genitourinary: Reports no additional female genitourinary complaints and Denies urinary incontinence <Pari Montalvo NP - Last Filed: 01/21/23 18:00> Musculoskeletal: Musculoskeletal: Denies back pain, Denies arthralgias, Denies joint swelling, Reports muscle weakness (b/l lower extremity), Denies neck pain, Reports numbness and Denies tingling <Pari Montalvo NP - Last Filed: 01/21/23 18:00> Integumentary/Breasts: Skin/Breast: Reports system reviewed and no additional complaints, except as docu and Denies rash <Pari Montalvo NP - Last Filed: 01/21/23 18:00> Neurologic: Reports system reviewed and no additional complaints, except as documented, Denies dizziness, Denies headache(s), Reports numbness, Denies tingling and Reports weakness <Pari Montalvo NP - Last Filed: 01/21/23 18:00> [facility] Past Medical History Attestation statement: The following information was validated with the patient. <Pari Montalvo NP - Last Filed: 01/21/23 18:00> Source: old records reviewed <Pari Montalvo NP - Last Filed: 01/21/23 18:00> Medical History: Medical History Asthma Drug abuse in remission <Pari Montalvo NP - Last Filed: 01/21/23 18:00> Social History Social History: Social History Alcohol intake: never Patient Tobacco Use Status: Current everyday Tobacco user Smoked in Last 30 Days: Yes Substance Use Type: Heroin Advance Directives: No Advance Directives Information Provided: Yes <Pari Montalvo NP - Last Filed: 01/21/23 18:00> Physical Exam ED Vital Signs: Vital Signs - 24 hr 01/21/23 11:03 Temperature 97.4 F Pulse Rate 80 Respiratory Rate 18 Blood Pressure 106/49 L Pulse Oximetry 100 Oxygen Delivery Method Room Air BMI result Body Mass Index 22.1 <Pari Montalvo NP - Last Filed: 01/21/23 18:00> Vital Signs - 24 hr 01/21/23 11:03 Temperature 97.4 F Pulse Rate 80 Respiratory Rate 18 Blood Pressure 106/49 L Pulse Oximetry 100 Oxygen Delivery Method Room Air BMI result Body Mass Index 22.1 <Ese Gonzalez MD - Last Filed: 01/21/23 15:08> Const General: alert and poor hygiene <Pari Montalvo NP - Last Filed: 01/21/23 18:00> Orientation/consciousness: patient oriented x3 <Pari Montalvo NP - Last Filed: 01/21/23 18:00> Limitations: no limitations <Pari Montalvo GLASSINE MACHINE TENDER - Last Filed: 01/21/23 18:00> HENMT Head: Yes normal to inspection <Pari Montalvo GLASSINE MACHINE TENDER - Last Filed: 01/21/23 18:00> Ears: hearing grossly normal bilaterally and TM's normal bilaterally <Pari Montalvo GLASSINE MACHINE TENDER - Last Filed: 01/21/23 18:00> General nose exam: Normal external nose present <Pari Montalvo GLASSINE MACHINE TENDER - Last Filed: 01/21/23 18:00> Teeth and gingiva: caries <Pari Montalvo GLASSINE MACHINE TENDER - Last Filed: 01/21/23 18:00> Throat: Yes posterior oropharynx normal, Yes tonsils normal and Yes uvula midline <Pari Montalvo GLASSINE MACHINE TENDER - Last Filed: 01/21/23 18:00> Eyes General: appearance normal, both eyes and all related structures <Pari Montalvo GLASSINE MACHINE TENDER - Last Filed: 01/21/23 18:00> Pupils: Equal, round and reactive pupils present <Pari Montalvo GLASSINE MACHINE TENDER - Last Filed: 01/21/23 18:00> Neck Neck: Yes normal visual inspection, Yes full ROM, Yes no lymphadenopathy and Yes no meningeal signs <Pari Montalvo GLASSINE MACHINE TENDER - Last Filed: 01/21/23 18:00> Chest Chest palpation & inspection: normal inspection of the chest <Pari Montalvo GLASSINE MACHINE TENDER - Last Filed: 01/21/23 18:00> Resp Effort & Inspection: normal respiratory effort <Pari Montalvo GLASSINE MACHINE TENDER - Last Filed: 01/21/23 18:00> Auscultation: clear to auscultation bilaterally <Pari Montalvo GLASSINE MACHINE TENDER - Last Filed: 01/21/23 18:00> Cardio Rate: regular rate <Pari Montalvo GLASSINE MACHINE TENDER - Last Filed: 01/21/23 18:00> Rhythm: regular rhythm <Pari Montalvo GLASSINE MACHINE TENDER - Last Filed: 01/21/23 18:00> Peripheral pulses: Peripheral pulses 2+ throughout <Pari Montalvo GLASSINE MACHINE TENDER - Last Filed: 01/21/23 18:00> GI Other: Patient adamantly refused a rectal exam. She reports sensation is normal around the rectal area. Positive anal wink seen <Pari Montalvo NP - Last Filed: 01/21/23 18:00> Inspection: Yes normal to inspection <Pari Montalvo NP - Last Filed: 01/21/23 18:00> Palpation (GI): Soft to palpation and nontender <Pari Montalvo NP - Last Filed: 01/21/23 18:00> Auscultation: normal bowel sounds <Pari Montalvo NP - Last Filed: 01/21/23 18:00> General: Yes no CVA tenderness <Pari Montalvo NP - Last Filed: 01/21/23 18:00> Back/Spine/Pelvis Back: no CVA tenderness <Pari Montalvo NP - Last Filed: 01/21/23 18:00> Thoracic/Lumbar Spine: thoracic and lumbar spine normal to inspection <Pari Montalvo NP - Last Filed: 01/21/23 18:00> Skin General skin exam: no rashes or lesions noted <Pari Montalvo NP - Last Filed: 01/21/23 18:00> Neuro Other: Patient is able to plantar flex and dorsiflex the feet. She reports she is unable to raise both legs bilaterally due to the feeling weak. Patient reports sensation over the lower legs is taller over the hips/thighs/knees/lower legs. She reports sensation is normal in her feet. <Pari Montalvo NP - Last Filed: 01/21/23 18:00> General: patient oriented x3, no meningeal signs and Unable to assess gait <Pari Montalvo NP - Last Filed: 01/21/23 18:00> Cranial nerves: Yes CN's II-XII intact bilaterally, Yes Equal, round and reactive pupils present, Yes Bilaterally intact EOM present, Yes Nystagmus not present, Yes Normal facial strength present and Yes Midline tongue present <Pari Montalvo NP - Last Filed: 01/21/23 18:00> Gait exam (Neuro): Unable to assess gait <Pari Montalvo NP - Last Filed: 01/21/23 18:00> Deep tendon reflexes (DTR's): Right patellar reflex intensity grade: 2+ and Left patellar reflex intensity grade: 2+ <Pari Montalvo NP - Last Filed: 01/21/23 18:00> Course Course Course Narrative: 1138-UA consistent with UTI. This time infection is suspected. Antibiotics ordered. 1200-I was informed by nursing that the patient was a difficult stick. They admitted multiple times to obtain labs in IV but have been unsuccessful. I went to see the patient. Both Dr. henley I attempted a left EJ which was unsuccessful. Patient consented to central line by Dr. Henley. See procedure note 1245-Unsuccessful subclavian access by Dr Henley. We were able to get labs. Will re-attempt line placement shortly. 1315-Patient refusing additional line placement until she eats food 1430-A central line was placed by Dr Gonzalez. See procedure note. MRI informed. 1800-sign out to Le[facility] pending MRI lumbar spine, CT head <Pari Montalvo NP - Last Filed: 01/21/23 18:00> Medications Administered Discontinued Medications Generic Name Dose Route Start Last Admin Trade Name Lili PRN Reason Stop Dose Admin Clonazepam 1 mg 01/21/23 12:05 01/21/23 12:11 Clonazepam 1 Mg Tablet PO 01/21/23 12:06 1 mg ONCE ONE Administration Ceftriaxone Sodium 1 gm/ 50 mls @ 100 mls/hr 01/21/23 11:38 01/21/23 15:53 Sodium Chloride IV 01/21/23 12:07 Infused ONCE ONE Infusion Vancomycin HCl 1,500 mg/ 500 mls @ 333.333 mls/hr 01/21/23 15:31 01/21/23 16:37 Sodium Chloride IV 01/21/23 17:00 333.33 mls/hr ONCE ONE Administration Lorazepam 2 mg 01/21/23 14:45 01/21/23 15:08 Lorazepam 2 Mg/Ml Vial IM 01/21/23 14:46 2 mg STAT STA Administration Methadone HCl 20 mg 01/21/23 11:05 01/21/23 11:45 Methadone Hcl 20 Mg/2 Ml Oral.Conc PO 01/21/23 11:06 20 mg ONCE ONE Administration <Pari Montalvo NP - Last Filed: 01/21/23 18:00> Medications Administered Discontinued Medications Generic Name Dose Route Start Last Admin Trade Name Lili PRN Reason Stop Dose Admin Clonazepam 1 mg 01/21/23 12:05 01/21/23 12:11 Clonazepam 1 Mg Tablet PO 01/21/23 12:06 1 mg ONCE ONE Administration Ceftriaxone Sodium 1 gm/ 50 mls @ 100 mls/hr 01/21/23 11:38 01/21/23 15:53 Sodium Chloride IV 01/21/23 12:07 Infused ONCE ONE Infusion Vancomycin HCl 1,500 mg/ 500 mls @ 333.333 mls/hr 01/21/23 15:31 01/21/23 16:37 Sodium Chloride IV 01/21/23 17:00 333.33 mls/hr ONCE ONE Administration Lorazepam 2 mg 01/21/23 14:45 01/21/23 15:08 Lorazepam 2 Mg/Ml Vial IM 01/21/23 14:46 2 mg STAT STA Administration Methadone HCl 20 mg 01/21/23 11:05 01/21/23 11:45 Methadone Hcl 20 Mg/2 Ml Oral.Conc PO 01/21/23 11:06 20 mg ONCE ONE Administration <Ese Gonzalez MD - Last Filed: 01/21/23 15:08> Procedures Central Line Placement Right IJ: Time Out Performed: Yes <Ese Gonzalez MD - Last Filed: 01/21/23 15:08> Patient Placed on Monitor/Pulse Ox: Yes <Ese Gonzalez MD - Last Filed: 01/21/23 15:08> MD Prep: mask, gown and gloves <Ese Gonzalez MD - Last Filed: 01/21/23 15:08> Central Line Prep: Chlorhexidine scrub <Ese Gonzalez MD - Last Filed: 01/21/23 15:08> Local Anesthetic: lidocaine 1% <Ese Gonzalez MD - Last Filed: 01/21/23 15:08> Amount of anesthesia used (mL): 5 <Ese Gonzalez MD - Last Filed: 01/21/23 15:08> Ultrasound Used for Placement: Yes <Ese Gonzalez MD - Last Filed: 01/21/23 15:08> Central Line Lumen Inserted: triple <Ese Gonzalez MD - Last Filed: 01/21/23 15:08> Post Procedure: sutured in place, good blood return, all ports aspirated, flushed, capped and sterile dressing applied <Ese Gonzalez MD - Last Filed: 01/21/23 15:08> Post Procedure X-Ray: tip of catheter in good position and no pneumothorax seen <Ese Gonzalez MD - Last Filed: 01/21/23 15:08> Patient Tolerated Procedure: well and no complications <Ese Gonzalez MD - Last Filed: 01/21/23 15:08> Complications: none <Ese Gonzalez MD - Last Filed: 01/21/23 15:08> Medical Decision Making Medical Decision Making MDM Narrative: 47y/o female with h/o IV drug use presenting with b/l LE weakness, numbness and subjective fevers, with additional complaints of chest pain, cough, vomiting and left arm wound for the past several days. Primary concern is LE numbness/weakness with inability to walk. Review of systems is overwhelmingly positive. Patient did come by ambulance and was unable to ambulate independently requiring a wheelchair to bathroom. Vitals are stable on arrival. No focal back pain on exam. Patient does have weakness in both lower extremities and reports dull sensation over the lower legs although states that is preserved in the feet. She does have normal reflexes bilaterally. Refusing rectal exam-denies incontinence, saddle anesthesia Will obtain labs including bcx/lactic acid, UA, viral testing, EKG, CXR, CT Head May need advanced imaging Anticipate admission <Pari Montalvo NP - Last Filed: 01/21/23 18:00> Differential Diagnosis Differential Diagnoses: The differential diagnosis associated with the presentation includes <Pari Montalvo NP - Last Filed: 01/21/23 18:00> see above Consider epidural abscess, less likely GB/cord compression/cauda equina/trauma. Also consider electrolyte abnormality, endocarditis, pneumonia, bacteremia, less likely meningitis, cellulitis, ACS, PE. Also consider but less likely CVA, ICH, space occupying lesion, GB less likely-no reports of ascending paralysis, intact DTR, no recent illnesses/vaccinations PE less likely with no hypoxia/tachypnea/tachycardia, clinical findings concerning for DVT <Pari Montalvo NP - Last Filed: 01/21/23 18:00> Admission/Observation Consideration of admission/observation: Escalation of care including admission/observation considered <Pari Montalvo NP - Last Filed: 01/21/23 18:00> Patient needs MRI lumbar spine to r/o epidural abscess. If present may need transfer to tertiary care center. Admission on hold pending MRI. <Pari Montalvo NP - Last Filed: 01/21/23 18:00> Consult Healthcare Provider rn examiner lauren for methadone dose-given 20mg in ER Spoke to Dr Marina (radiologist)-recommended obtaining lumbar spine MRI w/ contrast. No need for thoracic imaging based on location of symptoms per Dr Marina. Therefore thoracic MRI was cancelled. <Pari Montalvo NP - Last Filed: 01/21/23 18:00> Lab Data MDM Lab Attestation statement: I reviewed the patient's lab results. <Pari Montalvo NP - Last Filed: 01/21/23 18:00> Result Diagrams: 01/21/23 12:41 01/21/23 12:40 <Pari Montalvo NP - Last Filed: 01/21/23 18:00> Labs: Lab Results 01/21/23 01/21/23 01/21/23 Range/Units 11:22 11:22 11:22 WBC (4.8-10.8) X10*3/uL RBC (4.20-5.50) X10*6/uL Hgb (12.0-16.0) g/dl Hct (37.0-47.0) % MCV (80.0-98.0) fL MCH (27.0-33.0) pg MCHC (31.0-35.0) g/dl RDW (11.0-16.0) % Plt Count (160-400) X10*3/uL MPV Immature Gran % (Auto) (0.0-0.4) % Neut % (Auto) (45-73) % Lymph % (Auto) (20-40) % [place] % (Auto) (2-11) % Eos % (Auto) (0-4) % Baso % (Auto) (0-2) % Lymph # (Auto) (1.2-4.9) X10*3/uL [place] # (Auto) (0.1-1.2) X10*3/uL Eos # (Auto) (0.0-0.4) X10*3/uL Baso # (Auto) (0.0-0.2) X10*3/uL Abs Immat Gran (auto) (0.00-0.03) X10*3/uL Absolute Neuts (auto) (2.0-8.3) x10*3/uL Absolute Nucleated RBC (0.0-0.012) X10*3/uL Nucleated RBC % (auto) (0.0-0.2) /100WBC Smear Tech's Comments ESR (0-20) MM/HR PT (10.0-13.1) SEC INR (0.9-1.1) Sodium (135-145) mmol/L Potassium (3.3-5.1) mmol/L Chloride (96-108) mmol/L Carbon Dioxide (22-29) mmol/L Anion Gap (12-20) BUN (9-16) mg/dL Creatinine (0.5-1.4) mg/dL Estim Creat Clear Calc Estimated GFR Random Glucose (60-115) mg/dL Lactic Acid (0.5-2.0) mmol/L Calcium (8.4-10.2) mg/dL Magnesium (1.6-2.6) mg/dL Total Bilirubin (0.0-1.0) mg/dL Direct Bilirubin (0.0-0.5) mg/dL AST (5-31) U/L ALT (0-31) U/L Alkaline Phosphatase (39-117) U/L Total Creatine Kinase (26-140) U/L Troponin I High Sens (<3.5-17.0) ng/L C-Reactive Protein (< or = 0.50) mg/dL Total Protein (6.5-8.0) g/dL Albumin (3.5-5.0) g/dL Lipase (8-78) U/L Vitamin B12 (200-900) pg/mL Folate (> or = 4.0) ng/mL Urine Color Dark Yellow Urine Appearance Turbid Urine pH 6.5 (5.0-9.0) Ur Specific [place] 1.025 (1.005-1.025) Urine Protein 30 (1+) H (Neg-Trace) mg/dL Urine Glucose (UA) Negative (Negative) mg/dL Urine Ketones Trace (Negative) mg/dL Urine Blood Small (1+) H (Negative) Urine Nitrite Positive H (Negative) Ur Leukocyte Esterase Moderate (2+) H (Negative) Urine RBC 11-20 H (0-2) /HPF Urine WBC >50 H (0-5) /HPF Ur Squamous Epith Cells 3-5 (0-2) /HPF Other Crystals Present Urine Bacteria 4+ (None Seen) Hyaline Casts 0-2 (0-2) /LPF Urine Test NEGATIVE (NEGATIVE) Urine Opiates Screen (Not Detect) Urine Fentanyl Screen (Not Detect) Ur Barbiturates Screen (Not Detect) Ur Phencyclidine Scrn (Not Detect) Ur Amphetamines Screen (Not Detect) U Benzodiazepines Scrn (Not Detect) Urine Cocaine Screen (Not Detect) U Marijuana (THC) Screen (Not Detect) Ethyl Alcohol mg/dL Influenza Type A (PCR) NEGATIVE (Negative) Influenza Type B (PCR) NEGATIVE (Negative) RSV RNA Qual (PCR) NEGATIVE (Negative) SARS-CoV-2 RNA (RT-PCR) NEGATIVE (Negative) 01/21/23 01/21/23 01/21/23 Range/Units 11:22 12:40 12:40 WBC (4.8-10.8) X10*3/uL RBC (4.20-5.50) X10*6/uL Hgb (12.0-16.0) g/dl Hct (37.0-47.0) % MCV (80.0-98.0) fL MCH (27.0-33.0) pg MCHC (31.0-35.0) g/dl RDW (11.0-16.0) % Plt Count (160-400) X10*3/uL MPV Immature Gran % (Auto) (0.0-0.4) % Neut % (Auto) (45-73) % Lymph % (Auto) (20-40) % [place] % (Auto) (2-11) % Eos % (Auto) (0-4) % Baso % (Auto) (0-2) % Lymph # (Auto) (1.2-4.9) X10*3/uL [place] # (Auto) (0.1-1.2) X10*3/uL Eos # (Auto) (0.0-0.4) X10*3/uL Baso # (Auto) (0.0-0.2) X10*3/uL Abs Immat Gran (auto) (0.00-0.03) X10*3/uL Absolute Neuts (auto) (2.0-8.3) x10*3/uL Absolute Nucleated RBC (0.0-0.012) X10*3/uL Nucleated RBC % (auto) (0.0-0.2) /100WBC Smear Tech's Comments ESR (0-20) MM/HR PT 12.8 (10.0-13.1) SEC INR 1.1 (0.9-1.1) Sodium 137 (135-145) mmol/L Potassium 3.5 D (3.3-5.1) mmol/L Chloride 99 (96-108) mmol/L Carbon Dioxide 29 (22-29) mmol/L Anion Gap 13 (12-20) BUN 9 (9-16) mg/dL Creatinine 0.65 (0.5-1.4) mg/dL Estim Creat Clear Calc 87.6 Estimated GFR > 60 Random Glucose 132 H (60-115) mg/dL Lactic Acid (0.5-2.0) mmol/L Calcium 7.8 L D (8.4-10.2) mg/dL Magnesium 1.9 (1.6-2.6) mg/dL Total Bilirubin 0.3 (0.0-1.0) mg/dL Direct Bilirubin < 0.2 (0.0-0.5) mg/dL AST 10 (5-31) U/L ALT 7 (0-31) U/L Alkaline Phosphatase 91 (39-117) U/L Total Creatine Kinase 51 (26-140) U/L Troponin I High Sens (<3.5-17.0) ng/L C-Reactive Protein 16.54 H (< or = 0.50) mg/dL Total Protein 7.5 (6.5-8.0) g/dL Albumin 2.5 L (3.5-5.0) g/dL Lipase 11 (8-78) U/L Vitamin B12 643 (200-900) pg/mL Folate 2.9 L (> or = 4.0) ng/mL Urine Color Urine Appearance Urine pH (5.0-9.0) Ur Specific [place] (1.005-1.025) Urine Protein (Neg-Trace) mg/dL Urine Glucose (UA) (Negative) mg/dL Urine Ketones (Negative) mg/dL Urine Blood (Negative) Urine Nitrite (Negative) Ur Leukocyte Esterase (Negative) Urine RBC (0-2) /HPF Urine WBC (0-5) /HPF Ur Squamous Epith Cells (0-2) /HPF Other Crystals Urine Bacteria (None Seen) Hyaline Casts (0-2) /LPF Urine Test (NEGATIVE) Urine Opiates Screen POSITIVE H (Not Detect) Urine Fentanyl Screen POSITIVE H (Not Detect) Ur Barbiturates Screen Not Detected (Not Detect) Ur Phencyclidine Scrn Not Detected (Not Detect) Ur Amphetamines Screen Not Detected (Not Detect) U Benzodiazepines Scrn Not Detected (Not Detect) Urine Cocaine Screen POSITIVE H (Not Detect) U Marijuana (THC) Screen Not Detected (Not Detect) Ethyl Alcohol < 10 mg/dL Influenza Type A (PCR) (Negative) Influenza Type B (PCR) (Negative) RSV RNA Qual (PCR) (Negative) SARS-CoV-2 RNA (RT-PCR) (Negative) 01/21/23 01/21/23 01/21/23 Range/Units 12:40 12:41 12:41 WBC 8.7 (4.8-10.8) X10*3/uL RBC 3.59 L (4.20-5.50) X10*6/uL Hgb 8.4 L (12.0-16.0) g/dl Hct 28.3 L (37.0-47.0) % MCV 78.8 L (80.0-98.0) fL MCH 23.4 L (27.0-33.0) pg MCHC 29.7 L (31.0-35.0) g/dl RDW 16.4 H (11.0-16.0) % Plt Count 453 H (160-400) X10*3/uL MPV Not Reportable Immature Gran % (Auto) 0.6 H (0.0-0.4) % Neut % (Auto) 75.9 H (45-73) % Lymph % (Auto) 16.6 L (20-40) % [place] % (Auto) 6.1 (2-11) % Eos % (Auto) 0.3 (0-4) % Baso % (Auto) 0.5 (0-2) % Lymph # (Auto) 1.4 (1.2-4.9) X10*3/uL [place] # (Auto) 0.5 (0.1-1.2) X10*3/uL Eos # (Auto) 0.0 (0.0-0.4) X10*3/uL Baso # (Auto) 0.0 (0.0-0.2) X10*3/uL Abs Immat Gran (auto) 0.05 H (0.00-0.03) X10*3/uL Absolute Neuts (auto) 6.6 (2.0-8.3) x10*3/uL Absolute Nucleated RBC 0.000 (0.0-0.012) X10*3/uL Nucleated RBC % (auto) 0.0 (0.0-0.2) /100WBC Smear Tech's Comments VERIFIED ESR 92 H (0-20) MM/HR PT (10.0-13.1) SEC INR (0.9-1.1) Sodium (135-145) mmol/L Potassium (3.3-5.1) mmol/L Chloride (96-108) mmol/L Carbon Dioxide (22-29) mmol/L Anion Gap (12-20) BUN (9-16) mg/dL Creatinine (0.5-1.4) mg/dL Estim Creat Clear Calc Estimated GFR Random Glucose (60-115) mg/dL Lactic Acid (0.5-2.0) mmol/L Calcium (8.4-10.2) mg/dL Magnesium (1.6-2.6) mg/dL Total Bilirubin (0.0-1.0) mg/dL Direct Bilirubin (0.0-0.5) mg/dL AST (5-31) U/L ALT (0-31) U/L Alkaline Phosphatase (39-117) U/L Total Creatine Kinase (26-140) U/L Troponin I High Sens < 3.5 (<3.5-17.0) ng/L C-Reactive Protein (< or = 0.50) mg/dL Total Protein (6.5-8.0) g/dL Albumin (3.5-5.0) g/dL Lipase (8-78) U/L Vitamin B12 (200-900) pg/mL Folate (> or = 4.0) ng/mL Urine Color Urine Appearance Urine pH (5.0-9.0) Ur Specific [place] (1.005-1.025) Urine Protein (Neg-Trace) mg/dL Urine Glucose (UA) (Negative) mg/dL Urine Ketones (Negative) mg/dL Urine Blood (Negative) Urine Nitrite (Negative) Ur Leukocyte Esterase (Negative) Urine RBC (0-2) /HPF Urine WBC (0-5) /HPF Ur Squamous Epith Cells (0-2) /HPF Other Crystals Urine Bacteria (None Seen) Hyaline Casts (0-2) /LPF Urine Test (NEGATIVE) Urine Opiates Screen (Not Detect) Urine Fentanyl Screen (Not Detect) Ur Barbiturates Screen (Not Detect) Ur Phencyclidine Scrn (Not Detect) Ur Amphetamines Screen (Not Detect) U Benzodiazepines Scrn (Not Detect) Urine Cocaine Screen (Not Detect) U Marijuana (THC) Screen (Not Detect) Ethyl Alcohol mg/dL Influenza Type A (PCR) (Negative) Influenza Type B (PCR) (Negative) RSV RNA Qual (PCR) (Negative) SARS-CoV-2 RNA (RT-PCR) (Negative) 01/21/23 Range/Units 15:14 WBC (4.8-10.8) X10*3/uL RBC (4.20-5.50) X10*6/uL Hgb (12.0-16.0) g/dl Hct (37.0-47.0) % MCV (80.0-98.0) fL MCH (27.0-33.0) pg MCHC (31.0-35.0) g/dl RDW (11.0-16.0) % Plt Count (160-400) X10*3/uL MPV Immature Gran % (Auto) (0.0-0.4) % Neut % (Auto) (45-73) % Lymph % (Auto) (20-40) % [place] % (Auto) (2-11) % Eos % (Auto) (0-4) % Baso % (Auto) (0-2) % Lymph # (Auto) (1.2-4.9) X10*3/uL [place] # (Auto) (0.1-1.2) X10*3/uL Eos # (Auto) (0.0-0.4) X10*3/uL Baso # (Auto) (0.0-0.2) X10*3/uL Abs Immat Gran (auto) (0.00-0.03) X10*3/uL Absolute Neuts (auto) (2.0-8.3) x10*3/uL Absolute Nucleated RBC (0.0-0.012) X10*3/uL Nucleated RBC % (auto) (0.0-0.2) /100WBC Smear Tech's Comments ESR (0-20) MM/HR PT (10.0-13.1) SEC INR (0.9-1.1) Sodium (135-145) mmol/L Potassium (3.3-5.1) mmol/L Chloride (96-108) mmol/L Carbon Dioxide (22-29) mmol/L Anion Gap (12-20) BUN (9-16) mg/dL Creatinine (0.5-1.4) mg/dL Estim Creat Clear Calc Estimated GFR Random Glucose (60-115) mg/dL Lactic Acid 1.4 (0.5-2.0) mmol/L Calcium (8.4-10.2) mg/dL Magnesium (1.6-2.6) mg/dL Total Bilirubin (0.0-1.0) mg/dL Direct Bilirubin (0.0-0.5) mg/dL AST (5-31) U/L ALT (0-31) U/L Alkaline Phosphatase (39-117) U/L Total Creatine Kinase (26-140) U/L Troponin I High Sens (<3.5-17.0) ng/L C-Reactive Protein (< or = 0.50) mg/dL Total Protein (6.5-8.0) g/dL Albumin (3.5-5.0) g/dL Lipase (8-78) U/L Vitamin B12 (200-900) pg/mL Folate (> or = 4.0) ng/mL Urine Color Urine Appearance Urine pH (5.0-9.0) Ur Specific [place] (1.005-1.025) Urine Protein (Neg-Trace) mg/dL Urine Glucose (UA) (Negative) mg/dL Urine Ketones (Negative) mg/dL Urine Blood (Negative) Urine Nitrite (Negative) Ur Leukocyte Esterase (Negative) Urine RBC (0-2) /HPF Urine WBC (0-5) /HPF Ur Squamous Epith Cells (0-2) /HPF Other Crystals Urine Bacteria (None Seen) Hyaline Casts (0-2) /LPF Urine Test (NEGATIVE) Urine Opiates Screen (Not Detect) Urine Fentanyl Screen (Not Detect) Ur Barbiturates Screen (Not Detect) Ur Phencyclidine Scrn (Not Detect) Ur Amphetamines Screen (Not Detect) U Benzodiazepines Scrn (Not Detect) Urine Cocaine Screen (Not Detect) U Marijuana (THC) Screen (Not Detect) Ethyl Alcohol mg/dL Influenza Type A (PCR) (Negative) Influenza Type B (PCR) (Negative) RSV RNA Qual (PCR) (Negative) SARS-CoV-2 RNA (RT-PCR) (Negative) <Pari Montalvo, GLASSINE MACHINE TENDER - Last Filed: 01/21/23 18:00> Lab Results 01/21/23 01/21/23 01/21/23 Range/Units 11:22 11:22 11:22 WBC (4.8-10.8) X10*3/uL RBC (4.20-5.50) X10*6/uL Hgb (12.0-16.0) g/dl Hct (37.0-47.0) % MCV (80.0-98.0) fL MCH (27.0-33.0) pg MCHC (31.0-35.0) g/dl RDW (11.0-16.0) % Plt Count (160-400) X10*3/uL MPV Immature Gran % (Auto) (0.0-0.4) % Neut % (Auto) (45-73) % Lymph % (Auto) (20-40) % [place] % (Auto) (2-11) % Eos % (Auto) (0-4) % Baso % (Auto) (0-2) % Lymph # (Auto) (1.2-4.9) X10*3/uL [place] # (Auto) (0.1-1.2) X10*3/uL Eos # (Auto) (0.0-0.4) X10*3/uL Baso # (Auto) (0.0-0.2) X10*3/uL Abs Immat Gran (auto) (0.00-0.03) X10*3/uL Absolute Neuts (auto) (2.0-8.3) x10*3/uL Absolute Nucleated RBC (0.0-0.012) X10*3/uL Nucleated RBC % (auto) (0.0-0.2) /100WBC Smear Tech's Comments ESR (0-20) MM/HR PT (10.0-13.1) SEC INR (0.9-1.1) Sodium (135-145) mmol/L Potassium (3.3-5.1) mmol/L Chloride (96-108) mmol/L Carbon Dioxide (22-29) mmol/L Anion Gap (12-20) BUN (9-16) mg/dL Creatinine (0.5-1.4) mg/dL Estim Creat Clear Calc Estimated GFR Random Glucose (60-115) mg/dL Lactic Acid (0.5-2.0) mmol/L Calcium (8.4-10.2) mg/dL Magnesium (1.6-2.6) mg/dL Total Bilirubin (0.0-1.0) mg/dL Direct Bilirubin (0.0-0.5) mg/dL AST (5-31) U/L ALT (0-31) U/L Alkaline Phosphatase (39-117) U/L Total Creatine Kinase (26-140) U/L Troponin I High Sens (<3.5-17.0) ng/L C-Reactive Protein (< or = 0.50) mg/dL Total Protein (6.5-8.0) g/dL Albumin (3.5-5.0) g/dL Lipase (8-78) U/L Vitamin B12 (200-900) pg/mL Folate (> or = 4.0) ng/mL Urine Color Dark Yellow Urine Appearance Turbid Urine pH 6.5 (5.0-9.0) Ur Specific [place] 1.025 (1.005-1.025) Urine Protein 30 (1+) H (Neg-Trace) mg/dL Urine Glucose (UA) Negative (Negative) mg/dL Urine Ketones Trace (Negative) mg/dL Urine Blood Small (1+) H (Negative) Urine Nitrite Positive H (Negative) Ur Leukocyte Esterase Moderate (2+) H (Negative) Urine RBC 11-20 H (0-2) /HPF Urine WBC >50 H (0-5) /HPF Ur Squamous Epith Cells 3-5 (0-2) /HPF Other Crystals Present Urine Bacteria 4+ (None Seen) Hyaline Casts 0-2 (0-2) /LPF Urine Test NEGATIVE (NEGATIVE) Urine Opiates Screen (Not Detect) Urine Fentanyl Screen (Not Detect) Ur Barbiturates Screen (Not Detect) Ur Phencyclidine Scrn (Not Detect) Ur Amphetamines Screen (Not Detect) U Benzodiazepines Scrn (Not Detect) Urine Cocaine Screen (Not Detect) U Marijuana (THC) Screen (Not Detect) Ethyl Alcohol mg/dL Influenza Type A (PCR) NEGATIVE (Negative) Influenza Type B (PCR) NEGATIVE (Negative) RSV RNA Qual (PCR) NEGATIVE (Negative) SARS-CoV-2 RNA (RT-PCR) NEGATIVE (Negative) 01/21/23 01/21/23 01/21/23 Range/Units 11:22 12:40 12:40 WBC (4.8-10.8) X10*3/uL RBC (4.20-5.50) X10*6/uL Hgb (12.0-16.0) g/dl Hct (37.0-47.0) % MCV (80.0-98.0) fL MCH (27.0-33.0) pg MCHC (31.0-35.0) g/dl RDW (11.0-16.0) % Plt Count (160-400) X10*3/uL MPV Immature Gran % (Auto) (0.0-0.4) % Neut % (Auto) (45-73) % Lymph % (Auto) (20-40) % [place] % (Auto) (2-11) % Eos % (Auto) (0-4) % Baso % (Auto) (0-2) % Lymph # (Auto) (1.2-4.9) X10*3/uL [place] # (Auto) (0.1-1.2) X10*3/uL Eos # (Auto) (0.0-0.4) X10*3/uL Baso # (Auto) (0.0-0.2) X10*3/uL Abs Immat Gran (auto) (0.00-0.03) X10*3/uL Absolute Neuts (auto) (2.0-8.3) x10*3/uL Absolute Nucleated RBC (0.0-0.012) X10*3/uL Nucleated RBC % (auto) (0.0-0.2) /100WBC Smear Tech's Comments ESR (0-20) MM/HR PT 12.8 (10.0-13.1) SEC INR 1.1 (0.9-1.1) Sodium 137 (135-145) mmol/L Potassium 3.5 D (3.3-5.1) mmol/L Chloride 99 (96-108) mmol/L Carbon Dioxide 29 (22-29) mmol/L Anion Gap 13 (12-20) BUN 9 (9-16) mg/dL Creatinine 0.65 (0.5-1.4) mg/dL Estim Creat Clear Calc 87.6 Estimated GFR > 60 Random Glucose 132 H (60-115) mg/dL Lactic Acid (0.5-2.0) mmol/L Calcium 7.8 L D (8.4-10.2) mg/dL Magnesium 1.9 (1.6-2.6) mg/dL Total Bilirubin 0.3 (0.0-1.0) mg/dL Direct Bilirubin < 0.2 (0.0-0.5) mg/dL AST 10 (5-31) U/L ALT 7 (0-31) U/L Alkaline Phosphatase 91 (39-117) U/L Total Creatine Kinase 51 (26-140) U/L Troponin I High Sens (<3.5-17.0) ng/L C-Reactive Protein 16.54 H (< or = 0.50) mg/dL Total Protein 7.5 (6.5-8.0) g/dL Albumin 2.5 L (3.5-5.0) g/dL Lipase 11 (8-78) U/L Vitamin B12 643 (200-900) pg/mL Folate 2.9 L (> or = 4.0) ng/mL Urine Color Urine Appearance Urine pH (5.0-9.0) Ur Specific [place] (1.005-1.025) Urine Protein (Neg-Trace) mg/dL Urine Glucose (UA) (Negative) mg/dL Urine Ketones (Negative) mg/dL Urine Blood (Negative) Urine Nitrite (Negative) Ur Leukocyte Esterase (Negative) Urine RBC (0-2) /HPF Urine WBC (0-5) /HPF Ur Squamous Epith Cells (0-2) /HPF Other Crystals Urine Bacteria (None Seen) Hyaline Casts (0-2) /LPF Urine Test (NEGATIVE) Urine Opiates Screen POSITIVE H (Not Detect) Urine Fentanyl Screen POSITIVE H (Not Detect) Ur Barbiturates Screen Not Detected (Not Detect) Ur Phencyclidine Scrn Not Detected (Not Detect) Ur Amphetamines Screen Not Detected (Not Detect) U Benzodiazepines Scrn Not Detected (Not Detect) Urine Cocaine Screen POSITIVE H (Not Detect) U Marijuana (THC) Screen Not Detected (Not Detect) Ethyl Alcohol < 10 mg/dL Influenza Type A (PCR) (Negative) Influenza Type B (PCR) (Negative) RSV RNA Qual (PCR) (Negative) SARS-CoV-2 RNA (RT-PCR) (Negative) 01/21/23 01/21/23 01/21/23 Range/Units 12:40 12:41 12:41 WBC 8.7 (4.8-10.8) X10*3/uL RBC 3.59 L (4.20-5.50) X10*6/uL Hgb 8.4 L (12.0-16.0) g/dl Hct 28.3 L (37.0-47.0) % MCV 78.8 L (80.0-98.0) fL MCH 23.4 L (27.0-33.0) pg MCHC 29.7 L (31.0-35.0) g/dl RDW 16.4 H (11.0-16.0) % Plt Count 453 H (160-400) X10*3/uL MPV Not Reportable Immature Gran % (Auto) 0.6 H (0.0-0.4) % Neut % (Auto) 75.9 H (45-73) % Lymph % (Auto) 16.6 L (20-40) % [place] % (Auto) 6.1 (2-11) % Eos % (Auto) 0.3 (0-4) % Baso % (Auto) 0.5 (0-2) % Lymph # (Auto) 1.4 (1.2-4.9) X10*3/uL [place] # (Auto) 0.5 (0.1-1.2) X10*3/uL Eos # (Auto) 0.0 (0.0-0.4) X10*3/uL Baso # (Auto) 0.0 (0.0-0.2) X10*3/uL Abs Immat Gran (auto) 0.05 H (0.00-0.03) X10*3/uL Absolute Neuts (auto) 6.6 (2.0-8.3) x10*3/uL Absolute Nucleated RBC 0.000 (0.0-0.012) X10*3/uL Nucleated RBC % (auto) 0.0 (0.0-0.2) /100WBC Smear Tech's Comments VERIFIED ESR 92 H (0-20) MM/HR PT (10.0-13.1) SEC INR (0.9-1.1) Sodium (135-145) mmol/L Potassium (3.3-5.1) mmol/L Chloride (96-108) mmol/L Carbon Dioxide (22-29) mmol/L Anion Gap (12-20) BUN (9-16) mg/dL Creatinine (0.5-1.4) mg/dL Estim Creat Clear Calc Estimated GFR Random Glucose (60-115) mg/dL Lactic Acid (0.5-2.0) mmol/L Calcium (8.4-10.2) mg/dL Magnesium (1.6-2.6) mg/dL Total Bilirubin (0.0-1.0) mg/dL Direct Bilirubin (0.0-0.5) mg/dL AST (5-31) U/L ALT (0-31) U/L Alkaline Phosphatase (39-117) U/L Total Creatine Kinase (26-140) U/L Troponin I High Sens < 3.5 (<3.5-17.0) ng/L C-Reactive Protein (< or = 0.50) mg/dL Total Protein (6.5-8.0) g/dL Albumin (3.5-5.0) g/dL Lipase (8-78) U/L Vitamin B12 (200-900) pg/mL Folate (> or = 4.0) ng/mL Urine Color Urine Appearance Urine pH (5.0-9.0) Ur Specific [place] (1.005-1.025) Urine Protein (Neg-Trace) mg/dL Urine Glucose (UA) (Negative) mg/dL Urine Ketones (Negative) mg/dL Urine Blood (Negative) Urine Nitrite (Negative) Ur Leukocyte Esterase (Negative) Urine RBC (0-2) /HPF Urine WBC (0-5) /HPF Ur Squamous Epith Cells (0-2) /HPF Other Crystals Urine Bacteria (None Seen) Hyaline Casts (0-2) /LPF Urine Test (NEGATIVE) Urine Opiates Screen (Not Detect) Urine Fentanyl Screen (Not Detect) Ur Barbiturates Screen (Not Detect) Ur Phencyclidine Scrn (Not Detect) Ur Amphetamines Screen (Not Detect) U Benzodiazepines Scrn (Not Detect) Urine Cocaine Screen (Not Detect) U Marijuana (THC) Screen (Not Detect) Ethyl Alcohol mg/dL Influenza Type A (PCR) (Negative) Influenza Type B (PCR) (Negative) RSV RNA Qual (PCR) (Negative) SARS-CoV-2 RNA (RT-PCR) (Negative) 01/21/23 Range/Units 15:14 WBC (4.8-10.8) X10*3/uL RBC (4.20-5.50) X10*6/uL Hgb (12.0-16.0) g/dl Hct (37.0-47.0) % MCV (80.0-98.0) fL MCH (27.0-33.0) pg MCHC (31.0-35.0) g/dl RDW (11.0-16.0) % Plt Count (160-400) X10*3/uL MPV Immature Gran % (Auto) (0.0-0.4) % Neut % (Auto) (45-73) % Lymph % (Auto) (20-40) % [place] % (Auto) (2-11) % Eos % (Auto) (0-4) % Baso % (Auto) (0-2) % Lymph # (Auto) (1.2-4.9) X10*3/uL [place] # (Auto) (0.1-1.2) X10*3/uL Eos # (Auto) (0.0-0.4) X10*3/uL Baso # (Auto) (0.0-0.2) X10*3/uL Abs Immat Gran (auto) (0.00-0.03) X10*3/uL Absolute Neuts (auto) (2.0-8.3) x10*3/uL Absolute Nucleated RBC (0.0-0.012) X10*3/uL Nucleated RBC % (auto) (0.0-0.2) /100WBC Smear Tech's Comments ESR (0-20) MM/HR PT (10.0-13.1) SEC INR (0.9-1.1) Sodium (135-145) mmol/L Potassium (3.3-5.1) mmol/L Chloride (96-108) mmol/L Carbon Dioxide (22-29) mmol/L Anion Gap (12-20) BUN (9-16) mg/dL Creatinine (0.5-1.4) mg/dL Estim Creat Clear Calc Estimated GFR Random Glucose (60-115) mg/dL Lactic Acid 1.4 (0.5-2.0) mmol/L Calcium (8.4-10.2) mg/dL Magnesium (1.6-2.6) mg/dL Total Bilirubin (0.0-1.0) mg/dL Direct Bilirubin (0.0-0.5) mg/dL AST (5-31) U/L ALT (0-31) U/L Alkaline Phosphatase (39-117) U/L Total Creatine Kinase (26-140) U/L Troponin I High Sens (<3.5-17.0) ng/L C-Reactive Protein (< or = 0.50) mg/dL Total Protein (6.5-8.0) g/dL Albumin (3.5-5.0) g/dL Lipase (8-78) U/L Vitamin B12 (200-900) pg/mL Folate (> or = 4.0) ng/mL Urine Color Urine Appearance Urine pH (5.0-9.0) Ur Specific [place] (1.005-1.025) Urine Protein (Neg-Trace) mg/dL Urine Glucose (UA) (Negative) mg/dL Urine Ketones (Negative) mg/dL Urine Blood (Negative) Urine Nitrite (Negative) Ur Leukocyte Esterase (Negative) Urine RBC (0-2) /HPF Urine WBC (0-5) /HPF Ur Squamous Epith Cells (0-2) /HPF Other Crystals Urine Bacteria (None Seen) Hyaline Casts (0-2) /LPF Urine Test (NEGATIVE) Urine Opiates Screen (Not Detect) Urine Fentanyl Screen (Not Detect) Ur Barbiturates Screen (Not Detect) Ur Phencyclidine Scrn (Not Detect) Ur Amphetamines Screen (Not Detect) U Benzodiazepines Scrn (Not Detect) Urine Cocaine Screen (Not Detect) U Marijuana (THC) Screen (Not Detect) Ethyl Alcohol mg/dL Influenza Type A (PCR) (Negative) Influenza Type B (PCR) (Negative) RSV RNA Qual (PCR) (Negative) SARS-CoV-2 RNA (RT-PCR) (Negative) <Ese Gonzalez MD - Last Filed: 01/21/23 15:08> Independent Interpretation I performed an independent interpretation of an: EKG (I independently reviewed the EKG which shows normal sinus rhythm with sinus arrhythmia with a rate of 63, normal MN, normal QRS, QTC 47, nonspecific ST changes) and Plain X-Ray (I independently reviewed the chest x-ray and agree with the radiologist's report) <Pari Montalvo NP - Last Filed: 01/21/23 18:00> Radiology Impression Discussion of test interpretation with radiology: I have reviewed the radiologist's reading. <Pari Montalvo NP - Last Filed: 01/21/23 18:00> Radiologist Impression: [address] [id number] XRay Report Signed Patient: Radhika Ch MR#: [id number] : 1975 Acct:[id number] Age/Sex: 47 / F ADM Date: 01/21/23 Loc: HO.ED Attending Dr: Ordering Physician: Pari Gupta NP Date of Service: 01/21/23 Procedure(s): XR chest 2V Accession Number(s): [id number] cc: Pari Gupta NP~ EXAMINATION: XR CHEST CLINICAL INFORMATION: Chest pain COMPARISON: 05/15/2021 TECHNIQUE: 2 views of the chest were obtained. FINDINGS: Lungs are well expanded and clear. No airspace disease, pleural effusion or pneumothorax. Cardiac silhouette is normal in size. The pulmonary vascular pattern is normal. The visualized bones and upper abdomen are unremarkable. XR/XR chest 2V IMPRESSION: No acute pulmonary disease. <Pari Montalvo NP - Last Filed: 01/21/23 18:00> Discharge Plan Discharge Clinical Impression: Numbness and tingling of both legs, Bilateral leg weakness <Pari Montalvo NP - Last Filed: 01/21/23 18:00> Patient Disposition: Still a Patient <Pari Montalvo NP - Last Filed: 01/21/23 18:00> Prescriptions: No Action No Known Home Meds <Pari Montalvo NP - Last Filed: 01/21/23 18:00>
[2023-01-21 11:03] VITALS: BP 106/49; PULSE 80; RESP 18; TEMP 36.3; O2SAT 100; BMI 22.1
--- NOTE | 2023-01-21 11:33 | MHC.RECOVRN ---
Met with pt in ED 3 to discuss substance use and assess for withdrawal. Pt sitting in bed, awake, alert, easily engages in conversation, appears anxious and restless. Pt reports having reduced heroin use; currently uses 1 bundle in the morning, IV, and one bundle in the evening, IV. Last use yesterday. Pt denies other regular substance use. Reports having her own apartment. Pt had been to [facility] in the past, last spring, reports dose was 45 mg. Pt would like to utilize methadone to address withdrawal symptoms. Discussed with provider. Plan to administer 20 mg methadone and reassess. Shanelle Miller APRN, aware.
[2023-01-21 11:34] LABS: Appearance Urine Turbid; Color Urine Dark Yellow; Glucose Urine UA Negative (Negative); Leukocyte Esterase Urine Moderate (2+) (Negative); Nitrite Urine Positive (Negative); PH 6.5 (5.0-9.0); Specific Gravity - Urine 1.025 (1.005-1.025); UMIC TRIGGER UACC YES; Urine Blood Small (1+) (Negative); Urine Ketones Trace mg/dL (Negative); Urine Protein 30 (1+) mg/dL (Neg-Trace)
[2023-01-21 11:35] LABS: UPreg QC Valid YES; Urine Pregnancy NEGATIVE (NEGATIVE)
[2023-01-21 11:42] LABS: Amphetamine Screen Urine Not Detected (Not Detect); Barbiturates, Urine Not Detected (Not Detect); Benzodiazepines Screen Urine Not Detected (Not Detect); Cannabinoid Screen Urine Not Detected (Not Detect); Cocaine Screen Urine POSITIVE (Not Detect); Fentanyl, urine POSITIVE (Not Detect); Opiate Screen Urine POSITIVE (Not Detect); Phencyclidine Screen Urine Not Detected (Not Detect)
[2023-01-21] MEDS: methADONE HCl 20 MG/2 ML ORAL.CONC PO (11:45)
[2023-01-21 11:49] LABS: Bacteria Urine 4+ (None Seen); Hyaline Casts Urine 0-2 /LPF (0-2); Other Crystals Urine Present; UACC Culture Trigger YES; WBC Urine >50 /HPF (0-5)
[2023-01-21 12:08] LABS: Influenza A PCR NEGATIVE (Negative); Influenza B PCR NEGATIVE (Negative); Resp Syncy Virus RNA Qual PCR NEGATIVE (Negative); SARS COV2 PCR INHOUSE NEGATIVE (Negative)
[2023-01-21] MEDS: clonazePAM 1 MG TABLET PO (12:11)
--- NOTE | 2023-01-21 12:52 | MHC.EDTECH ---
Pari CARBAJAL and Morelia GUZMAN made aware of need for redraw of Lactic Acid
[2023-01-21 13:01] LABS: Basophils Percent Auto 0.5 % (0-2); Eosinophils Percent Auto 0.3 % (0-4); Hematocrit 28.3 % (37.0-47.0); Hemoglobin 8.4 g/dl (12.0-16.0); Imm Gran Abs Auto 0.05 X10*3/uL (0.00-0.03); Imm Gran Pct Auto 0.6 % (0.0-0.4); Lymphocytes Absolute Auto 1.4 X10*3/uL (1.2-4.9); Lymphocytes Percent Auto 16.6 % (20-40); MANUAL DIFF FLAG SCAN; Mean Corpuscular HGB Conc 29.7 g/dl (31.0-35.0); Mean Corpuscular Hemoglobin 23.4 pg (27.0-33.0); Mean Corpuscular Volume 78.8 fL (80.0-98.0); Monocytes Absolute Auto 0.5 X10*3/uL (0.1-1.2); Monocytes Percent Auto 6.1 % (2-11); Neutrophils Absolute Auto 6.6 x10*3/uL (2.0-8.3); Neutrophils Percent Auto 75.9 % (45-73); PLT CLUMP 1; Red Blood Count 3.59 X10*6/uL (4.20-5.50); Red Cell Distribution Width 16.4 % (11.0-16.0); SCAN SMEAR FLAG 1
[2023-01-21 13:06] LABS: INTERNATIONAL NORM RATIO 1.1 (0.9-1.1); Prothrombin Time 12.8 SEC (10.0-13.1)
[2023-01-21 13:22] LABS: Alanine Aminotransferase 7 U/L (0-31); Albumin Level 2.5 g/dL (3.5-5.0); Alkaline Phosphatase 91 U/L (39-117); Anion Gap 13 (12-20); Aspartate Amino Transferase 10 U/L (5-31); Bilirubin Direct < 0.2 mg/dL (0.0-0.5); Bilirubin Total 0.3 mg/dL (0.0-1.0); Blood Urea Nitrogen 9 mg/dL (9-16); Calcium 7.8 mg/dL (8.4-10.2); Carbon Dioxide 29 mmol/L (22-29); Chloride 99 mmol/L (96-108); Creatinine Clr Calc Pharmacy 87.6; Estimated Glomerular Filt Rate > 60; Ethanol < 10 mg/dL; Glucose Random 132 mg/dL (60-115); Lipase 11 U/L (8-78); Magnesium 1.9 mg/dL (1.6-2.6); Potassium 3.5 mmol/L (3.3-5.1); Sodium 137 mmol/L (135-145); Total Protein 7.5 g/dL (6.5-8.0)
[2023-01-21 13:30] LABS: Troponin-I High Sensitivity < 3.5 ng/L (<3.5-17.0)
[2023-01-21 13:49] LABS: Platelet Count 453 X10*3/uL (160-400); SLIDE REVIEW VERIFIED; White Blood Count 8.7 X10*3/uL (4.8-10.8)
[2023-01-21 14:00] LABS: C Reactive Protein 16.54 mg/dL (< or = 0.50)
[2023-01-21 14:27] LABS: Erythrocyte Sedimentation Rate 92 MM/HR (0-20)
[2023-01-21 14:30] LABS: Folate 2.9 ng/mL (> or = 4.0); Vitamin B12 643 pg/mL (200-900)
[2023-01-21] MEDS: LORazepam 2 MG/ML VIAL IM (15:08)
[2023-01-21] MEDS: cefTRIAXone sodium 1 GM in 0.9 % Sodium Chloride 50 ML IV (15:15)
[2023-01-21 15:30] LABS: Lactic Acid 1.4 mmol/L (0.5-2.0)
[2023-01-21] MEDS: vancomycin HCL 1,500 MG in 0.9 % Sodium Chloride 500 ML 333.33 MG IV (16:37)
--- NOTE | 2023-01-21 22:00 | PC.NURSE ---
Assumed care of pt at 1900. Pt sleeping at the bedside in no apparent distress. Arousable to verbal stimuli. Answer questions appropriately, falls asleep during assessment. Triple lumen central line on right side. Wound/rash present on bilateral arms with serous drainage. Pt admitted and aware of plan of care.
[2023-01-21 22:27] VITALS: BP 117/78; PULSE 75; RESP 14; TEMP 37.2; O2SAT 94
[2023-01-22] VITALS: BP 120/86; PULSE 85; RESP 16; TEMP 37.4; O2SAT 95
[2023-01-22] MEDS: iohexoL 350 MG/ML 100 ML INFUS..BTL 85 ML IV (00:19)
--- NOTE | 2023-01-22 01:14 | MHC.EDTECH ---
Call out to [facility] transfer line @[phone] spoke to Wanda who asked to speak to Radhika WHITEHEAD
--- NOTE | 2023-01-22 01:42 | MHC.EDTECH ---
Ambulate patient from bed to the doorway patient was unsteady at times and patient did urinate a small amount on the floor.Provider Radhika was made aware.
[2023-01-22 01:56] VITALS: BP 133/82; PULSE 77; RESP 16; TEMP 36.9; O2SAT 95
--- NOTE | 2023-01-22 03:22 | PM.IMHP ---
History of Present Illness Date of Service: 01/22/23 Chief Complaint: Fever This is a 47-year-old female with pertinent history of polysubstance IV drug use disorder who presents to the emergency department for evaluation of fever and generalized weakness. Patient states she started having fever about 2 days ago. She also noticed her left upper extremity was red, swollen and tender. It was associated with purulent discharge. Patient also complains of dysuria and urinary urgency. In the emergency department, patient initially said she could not walk and hence lumbar MRI was obtained. However she was seen walking by the RN on her way to the restroom. Patient did not want to have a conversation at the time of my evaluation. Unable to obtain review of systems. Patient's UDS positive for opiates, fentanyl and cocaine in the ER. Urine suggestive of UTI Review of Systems Constitutional: Constitutional: Reports chills and Reports fever(s) Cardiovascular: Cardiovascular: Reports no additional cardiovascular complaints Respiratory: Respiratory: Reports no additional respiratory complaints Gastrointestinal: Gastrointestinal: Reports no additional gastrointestinal complaints Genitourinary: Genitourinary: Reports urinary urgency [facility] Medical History Asthma Drug abuse in remission Pertinent family history: Does not know Social History Alcohol intake: never Patient Tobacco Use Status: Current everyday Tobacco user Smoked in Last 30 Days: Yes Substance Use Type: Heroin Advance Directives: No Advance Directives Information Provided: Yes Meds Allergies Allergy/AdvReac Type Severity Reaction Status Date / Time codeine [Codeine] Allergy Intermediate ITCHING, Verified 01/15/23 20:23 VOMTING, THROAT SWELLS tramadol [TRAMADOL] Allergy Intermediate BODY Verified 01/15/23 20:23 SWELLING acetaminophen Allergy Unknown Vomitting, Verified 01/15/23 20:23 [Tylenol-Codeine #3] Hives Active Medications: Current Medications Acetaminophen (Acetaminophen 325 Mg Tablet) 650 mg PO Q6H PRN PRN Reason: Pain, Mild (Pain Scale 1-3) Enoxaparin Sodium (Enoxaparin Sodium 40 Mg/0.4 Ml Syringe) 40 mg SUBCUT Q24H [facility] Ceftriaxone Sodium 1 gm/ (Sodium Chloride) 50 mls @ 100 mls/hr IV Q24H [facility] Melatonin (Melatonin 3 Mg Tablet) 6 mg PO BEDTIME PRN PRN Reason: Insomnia Ondansetron HCl (Ondansetron Hcl 4 Mg/2 Ml Vial) 4 mg IVPUSH Q8H PRN PRN Reason: Nausea and Vomiting Pharmacy Consult (Consult Rx Perform Med Rec) 1 each MISCELLANE ONCE PRN PRN Reason: Consult order Pharmacy Consult (Consult Rx Vancomycin Dosing) 1 each MISCELLANE DAILY PRN PRN Reason: Consult order Sodium Chloride (0.9 % Sodium Chloride Flush 3 Ml Syringe) 3 ml IVFLUSH QSHIFT [facility] Home Medications Medication Instructions Recorded Confirmed Last Taken Type No Known Home Meds 05/16/21 05/16/21 Unknown History Physical Exam Vital Signs and Narrative: Vital Signs: Last Vital Signs Temp 98.5 F 01/22/23 01:56 Pulse 77 01/22/23 01:56 Resp 16 01/22/23 01:56 BP 133/82 01/22/23 01:56 Pulse Ox 95 01/22/23 01:56 O2 Del Method 01/22/23 01:56 BMI result Body Mass Index 22.1 Middle-aged female lying in bed in no distress Neck supple, no JVD Regular rate and rhythm, S1-S2 heard Regular breath sounds bilaterally, no wheezing or crackles appreciated Abdomen soft nontender, no guarding, no rigidity Patient is awake, alert and oriented to self. Left upper extremity with purulent drainage, redness, swelling ; right upper extremity with redness Psych: Normal mood No pedal edema Results Labs 01/21/23 12:41 01/21/23 12:40 Labs: Laboratory Results - last 24 hr 01/21/23 01/21/23 01/21/23 11:22 11:22 11:22 MCV MCH MCHC RDW Plt Count MPV Immature Gran % (Auto) Neut % (Auto) Lymph % (Auto) [place] % (Auto) Eos % (Auto) Baso % (Auto) Lymph # (Auto) [place] # (Auto) Eos # (Auto) Baso # (Auto) Abs Immat Gran (auto) Absolute Neuts (auto) Absolute Nucleated RBC Nucleated RBC % (auto) Smear Tech's Comments ESR PT INR Anion Gap Estim Creat Clear Calc Estimated GFR Random Glucose Lactic Acid Calcium Magnesium Total Bilirubin Direct Bilirubin AST ALT Alkaline Phosphatase Total Creatine Kinase Troponin I High Sens C-Reactive Protein Total Protein Albumin Lipase Vitamin B12 Folate Urine Color Dark Yellow Urine Appearance Turbid Urine pH 6.5 Ur Specific [place] 1.025 Urine Protein 30 (1+) H Urine Glucose (UA) Negative Urine Ketones Trace Urine Blood Small (1+) H Urine Nitrite Positive H Ur Leukocyte Esterase Moderate (2+) H Urine RBC 11-20 H Urine WBC >50 H Ur Squamous Epith Cells 3-5 Other Crystals Present Urine Bacteria 4+ Hyaline Casts 0-2 Urine Test NEGATIVE Urine Opiates Screen Urine Fentanyl Screen Ur Barbiturates Screen Ur Phencyclidine Scrn Ur Amphetamines Screen U Benzodiazepines Scrn Urine Cocaine Screen U Marijuana (THC) Screen Ethyl Alcohol Influenza Type A (PCR) NEGATIVE Influenza Type B (PCR) NEGATIVE RSV RNA Qual (PCR) NEGATIVE SARS-CoV-2 RNA (RT-PCR) NEGATIVE 01/21/23 01/21/23 01/21/23 11:22 12:40 12:40 MCV MCH MCHC RDW Plt Count MPV Immature Gran % (Auto) Neut % (Auto) Lymph % (Auto) [place] % (Auto) Eos % (Auto) Baso % (Auto) Lymph # (Auto) [place] # (Auto) Eos # (Auto) Baso # (Auto) Abs Immat Gran (auto) Absolute Neuts (auto) Absolute Nucleated RBC Nucleated RBC % (auto) Smear Tech's Comments ESR PT 12.8 INR 1.1 Anion Gap 13 Estim Creat Clear Calc 87.6 Estimated GFR > 60 Random Glucose 132 H Lactic Acid Calcium 7.8 L D Magnesium 1.9 Total Bilirubin 0.3 Direct Bilirubin < 0.2 AST 10 ALT 7 Alkaline Phosphatase 91 Total Creatine Kinase 51 Troponin I High Sens C-Reactive Protein 16.54 H Total Protein 7.5 Albumin 2.5 L Lipase 11 Vitamin B12 643 Folate 2.9 L Urine Color Urine Appearance Urine pH Ur Specific [place] Urine Protein Urine Glucose (UA) Urine Ketones Urine Blood Urine Nitrite Ur Leukocyte Esterase Urine RBC Urine WBC Ur Squamous Epith Cells Other Crystals Urine Bacteria Hyaline Casts Urine Test Urine Opiates Screen POSITIVE H Urine Fentanyl Screen POSITIVE H Ur Barbiturates Screen Not Detected Ur Phencyclidine Scrn Not Detected Ur Amphetamines Screen Not Detected U Benzodiazepines Scrn Not Detected Urine Cocaine Screen POSITIVE H U Marijuana (THC) Screen Not Detected Ethyl Alcohol < 10 Influenza Type A (PCR) Influenza Type B (PCR) RSV RNA Qual (PCR) SARS-CoV-2 RNA (RT-PCR) 01/21/23 01/21/23 01/21/23 12:40 12:41 12:41 MCV 78.8 L MCH 23.4 L MCHC 29.7 L RDW 16.4 H Plt Count 453 H MPV Not Reportable Immature Gran % (Auto) 0.6 H Neut % (Auto) 75.9 H Lymph % (Auto) 16.6 L [place] % (Auto) 6.1 Eos % (Auto) 0.3 Baso % (Auto) 0.5 Lymph # (Auto) 1.4 [place] # (Auto) 0.5 Eos # (Auto) 0.0 Baso # (Auto) 0.0 Abs Immat Gran (auto) 0.05 H Absolute Neuts (auto) 6.6 Absolute Nucleated RBC 0.000 Nucleated RBC % (auto) 0.0 Smear Tech's Comments VERIFIED ESR 92 H PT INR Anion Gap Estim Creat Clear Calc Estimated GFR Random Glucose Lactic Acid Calcium Magnesium Total Bilirubin Direct Bilirubin AST ALT Alkaline Phosphatase Total Creatine Kinase Troponin I High Sens < 3.5 C-Reactive Protein Total Protein Albumin Lipase Vitamin B12 Folate Urine Color Urine Appearance Urine pH Ur Specific [place] Urine Protein Urine Glucose (UA) Urine Ketones Urine Blood Urine Nitrite Ur Leukocyte Esterase Urine RBC Urine WBC Ur Squamous Epith Cells Other Crystals Urine Bacteria Hyaline Casts Urine Test Urine Opiates Screen Urine Fentanyl Screen Ur Barbiturates Screen Ur Phencyclidine Scrn Ur Amphetamines Screen U Benzodiazepines Scrn Urine Cocaine Screen U Marijuana (THC) Screen Ethyl Alcohol Influenza Type A (PCR) Influenza Type B (PCR) RSV RNA Qual (PCR) SARS-CoV-2 RNA (RT-PCR) 01/21/23 15:14 MCV MCH MCHC RDW Plt Count MPV Immature Gran % (Auto) Neut % (Auto) Lymph % (Auto) [place] % (Auto) Eos % (Auto) Baso % (Auto) Lymph # (Auto) [place] # (Auto) Eos # (Auto) Baso # (Auto) Abs Immat Gran (auto) Absolute Neuts (auto) Absolute Nucleated RBC Nucleated RBC % (auto) Smear Tech's Comments ESR PT INR Anion Gap Estim Creat Clear Calc Estimated GFR Random Glucose Lactic Acid 1.4 Calcium Magnesium Total Bilirubin Direct Bilirubin AST ALT Alkaline Phosphatase Total Creatine Kinase Troponin I High Sens C-Reactive Protein Total Protein Albumin Lipase Vitamin B12 Folate Urine Color Urine Appearance Urine pH Ur Specific [place] Urine Protein Urine Glucose (UA) Urine Ketones Urine Blood Urine Nitrite Ur Leukocyte Esterase Urine RBC Urine WBC Ur Squamous Epith Cells Other Crystals Urine Bacteria Hyaline Casts Urine Test Urine Opiates Screen Urine Fentanyl Screen Ur Barbiturates Screen Ur Phencyclidine Scrn Ur Amphetamines Screen U Benzodiazepines Scrn Urine Cocaine Screen U Marijuana (THC) Screen Ethyl Alcohol Influenza Type A (PCR) Influenza Type B (PCR) RSV RNA Qual (PCR) SARS-CoV-2 RNA (RT-PCR) Imaging Radiologist's Impressions: Impressions Chest X-Ray 01/21/23 10:44 IMPRESSION: No acute pulmonary disease. Chest X-Ray 01/21/23 13:00 IMPRESSION: 1. No pleural effusion or pneumothorax. 2. Minimal right basilar atelectasis. Chest X-Ray 01/21/23 15:35 IMPRESSION: Right jugular line reaches the upper aspect of the right atrium. No evidence of pneumothorax or pleural effusion. Head CT 01/21/23 17:51 IMPRESSION: No evidence of acute intracranial hemorrhage or edematous territorial infarction with the caveat that evaluation of the inferior brain and posterior fossa is slightly limited by motion. KUB X-Ray 01/21/23 18:40 IMPRESSION: Unremarkable examination. No radiopaque foreign bodies are seen. Lumbar Spine MRI 01/21/23 21:44 IMPRESSION: 1. No evidence of discitis/osteomyelitis, epidural abscess, or significant spinal canal stenosis. 2. Generalized signal abnormality within the bone marrow which suggests a marrow infiltration process. This is nonspecific and possible etiologies include stimulated red marrow (as can be seen with smoking, altitude, chronic anemia, etc.), chronic infection, and early phases of myelodysplastic/myeloproliferative disorders. Consider correlation with clinical history and, potentially, a CBC with blood smear. 3. Partially visualized disc protrusion at T9-T10 which indents the ventral thecal sac but does not contribute to high-grade spinal canal stenosis. Abdomen/Pelvis CT 01/22/23 00:21 IMPRESSION: 1. A cause for the patient's diffuse abdominal pain has not been found. 2. Incidental note made of mild hepatosplenomegaly, stable left adrenal thickening and small amount of free fluid in the cul-de-sac. Fleischner guidelines were followed. Assessment and Plan (1) UTI (urinary tract infection): Status: Acute (2) Cellulitis of arm, left: Status: Acute (3) Weakness: Status: Acute (4) Polysubstance (including opioids) dependence, daily use: Status: Acute Plan This is a 47-year-old female with pertinent history of polysubstance IV drug use disorder who presents to the emergency department for evaluation of fever and generalized weakness. #. Purulent cellulitis of left arm: Will admit and initiate empiric IV antibiotics. Imaging pending to rule out abscess. Blood culture obtained. Will benefit from wound care if abscess is excluded #. Acute UTI: Initiating Rocephin. Urine cultures pending #. Generalized weakness in the setting of infection #. Cocaine and heroin use disorder: Consulting addiction team and care team. Monitor for withdrawal #. Microcytic anemia: Obtaining iron panel DVT prophylaxis: Lovenox 40 mg daily Full code Regular diet Admit as inpatient and will require two night minimum hospital stay for IV antibiotics Time Spent With Patient Time: Total time managing care of this patient today ____ minutes. Quality Stroke Does the patient have a stroke diagnosis?: No VTE Prior VTE?: No VTE Risk Level:: Medical - moderate - high VTE Device Contraindication: Treatment Not Indicated VTE Drug Contraindication: N/A - Med Ordered
[2023-01-22 03:49] LABS: Iron 15 mcg/dL (30-160); Percent Iron Saturation 10 % (15-50); Total Iron Binding Capacity 157 mcg/dL (228-428); Unsaturated Iron Binding 142 ug/dL
[2023-01-22] MEDS: Enoxaparin Sodium 40 MG/0.4 ML SYRINGE SUBCUT (04:23)
[2023-01-22] MEDS: vancomycin HCL 750 MG in 0.9 % Sodium Chloride 250 ML 265 MG IV (04:23)
[2023-01-22 04:35] VITALS: BP 127/77; PULSE 81; RESP 16; TEMP 36.8; O2SAT 94
[2023-01-22 05:58] VITALS: BP 115/85; PULSE 79; RESP 16; TEMP 36.8; O2SAT 96
[2023-01-22 07:16] LABS: MANUAL DIFF FLAG NO
[2023-01-22 07:25] LABS: Basophils Percent Auto 0.4 % (0-2); Eosinophils Percent Auto 0.1 % (0-4); Hematocrit 26.7 % (37.0-47.0); Hemoglobin 7.8 g/dl (12.0-16.0); Imm Gran Abs Auto 0.04 X10*3/uL (0.00-0.03); Imm Gran Pct Auto 0.5 % (0.0-0.4); Lymphocytes Absolute Auto 1.9 X10*3/uL (1.2-4.9); Lymphocytes Percent Auto 23.5 % (20-40); Mean Corpuscular HGB Conc 29.2 g/dl (31.0-35.0); Mean Corpuscular Hemoglobin 22.9 pg (27.0-33.0); Mean Corpuscular Volume 78.5 fL (80.0-98.0); Mean Platelet Volume 9.7 fL (9.4-12.3); Monocytes Absolute Auto 0.5 X10*3/uL (0.1-1.2); Monocytes Percent Auto 6.4 % (2-11); Neutrophils Absolute Auto 5.4 x10*3/uL (2.0-8.3); Neutrophils Percent Auto 69.1 % (45-73); Platelet Count 487 X10*3/uL (160-400); Red Cell Distribution Width 16.7 % (11.0-16.0); White Blood Count 7.9 X10*3/uL (4.8-10.8)
[2023-01-22 07:35] LABS: Anion Gap 11 (12-20); Blood Urea Nitrogen 5 mg/dL (9-16); Calcium 7.8 mg/dL (8.4-10.2); Carbon Dioxide 30 mmol/L (22-29); Chloride 102 mmol/L (96-108); Creatinine Clr Calc Pharmacy 98.1; Estimated Glomerular Filt Rate > 60; Glucose Random 91 mg/dL (60-115); Potassium 3.3 mmol/L (3.3-5.1); Sodium 140 mmol/L (135-145)
[2023-01-22 08:00] VITALS: BP 125/71; PULSE 75; RESP 13; TEMP 37.1; O2SAT 95
--- NOTE | 2023-01-22 08:17 | PHA.PROG ---
Admission Date/Time: January 22, 2023 03:18 Indication: Skin Weight in k.699 kg Adjusted body weight in Kg: [place] body weight in Kg: Obesity Dosing Indication % IBW: Serum Creatinine - Last 168 Hours 01/21/23 01/22/23 12:40 05:40 Creatinine 0.65 0.58 Estimated CrCl and GFR - Last 168 Hours 01/21/23 01/22/23 12:40 05:40 Estim Creat Clear Calc 87.6 98.1 Estimated GFR > 60 > 60 Vancomycin Loading Dose: 1500 mg x 1 Current Vancomycin Dosing Regimen: 1000mg Q12H Vancomycin Monitoring using AUC goal of 400 - 600 range with trough as surrogate marker: 488mg/L Date and Time for next Vancomycin Level to be drawn: 01/22/23 @1400 Pharmacist Comments on Vancomycin Plan: Pt got load dose and overnight pharmacy put in a one time 750mg dose. Entered dose for 1000mg Q12H but due to timing getting level before first dose of 1g. pt's renal function improved after first two doses. Predicted trough of 13.9 Vancomycin dosing will take advantage of [employer] as a clinical decision support tool that uses Bayesian modeling to calculate individual patient's pharmacokinetic parameters and forecast the patient's drug concentration time course with the target goal AUC 24 range of 400 - 600 mg/L/hr.
--- NOTE | 2023-01-22 09:22 | MHC.EDTECH ---
patient wash and clean ,bed change. patient relaxing
[2023-01-22] MEDS: Folic Acid 1 MG TABLET PO (09:33)
[2023-01-22] MEDS: 0.9 % Sodium Chloride Flush 3 ML SYRINGE IVFLUSH (09:33)
--- NOTE | 2023-01-22 10:59 | PM.EVENT ---
Event Note Date of Service: 01/22/23 Event Note: 47-year-old female with history of polysubstance IV drug use, presented to the emergency department for evaluation of fever and generalized weakness. #.? Purulent cellulitis of left arm: afebrile, normal WBC count, continue IV ceftriaxone and vancomycin, blood cultures pending, CT left for arm without contrast ordered to rule out abscess #.? Acute UTI:? on IV Rocephin.? Urine cultures pending #.? Generalized weakness , back pain, MRI of lumbar spine showed no evidence of discitis/ osteomyelitis, epidural abscess or spinal canal stenosis #.? Cocaine and heroin use disorder:? addiction team and care team consult obtained,.? Monitor for withdrawal #.? chronic Microcytic anemia, noted to have low folic acid and also low iron stores, no acute blood loss likely due to poor nutrition, will replace folic acid and placed on iron supplement # hypoalbuminemia likely due to poor nutrition will add protein supplement. DVT prophylaxis:? Lovenox 40 mg daily patient will need continued inpatient hospitalization for IV antibiotics. Time Spent With Patient Time: Total time managing care of this patient today ____ minutes.
--- NOTE | 2023-01-22 11:14 | MHC.RECOVRN ---
Met with pt in ED3 to follow up and assess for withdrawal. Pt laying in bed, asleep, wakes to touch. Pt reports desire to leave due to feeling withdrawal. Pt unable to fully engage in conversation, wincing. Pt reports 20 mg methadone yesterday was nothing. Pt requests increase in dose. Discussed with Shanelle Miller APRN. Plan to administer 30 mg methadone.
--- NOTE | 2023-01-22 11:15 | PHA.MEDREC ---
Pharmacy Consult ? Medication Reconciliation Pharmacy has completed the medication reconciliation. Patient unarousable. Simran refused to wake up. Claim history has no medications. PDMP has no history of medications. Leatha Wiggins, ElsyD
[2023-01-22] MEDS: methADONE HCl 20 MG/2 ML ORAL.CONC 30 MG PO (11:45)
--- NOTE | 2023-01-22 12:14 | PC.NURSE ---
PT IS STATES SHE WANTS TO LEAVE PROVIDER AWARE AND WILL TALK WITH PATIENT
--- NOTE | 2023-01-22 12:44 | PC.NURSE ---
PT HAS AGREED TO STAY FOR NOW, WILL GIVE MEDICATIONS FOR PAIN AND WITHDRAWAL
--- NOTE | 2023-01-22 12:53 | PM.HEMONCCN ---
Subjective - Subjective Chief complaint: Inability to walk Patient: new to practice Consult date: 01/22/23 Primary Care Provider: [facility] HPI - Consult Narrative Reason for consult: microcytic anemia, myelopathy Narrative: Radhika Ch is a 47 year old female who presented to ED with complaints of difficulty with ambulation. She says 3 days ago she developed sudden onset of weakness, she was not able to get up from the toilet. She now cannot feel her body below her waist. She denies urinary or fecal incontinence. She says she did not have any symptoms of neuropathy preceding this sudden onset of weakness. She denies any cough, fever, chills, night sweats or loss of appetite. She has had weight loss. She is to go to methadone clinic until a month ago. She says she relapsed and is using IV heroin. She denies alcohol use. She is not on any chronic medications at this time. She does not have a PCP. Review of Systems - Constitutional Reports as per HPI, Reports weakness, Reports weight loss - Cardiovascular Reports no additional cardiovascular complaints - Respiratory Reports no additional respiratory complaints - Neurologic Reports no additional neurologic complaints, Denies dizziness, Denies headache(s), Reports numbness, Denies tingling, Reports weakness PMFSH Medical History: Medical History (Last Reviewed 01/22/23 @ 03:25 by Wesley Parks MD) Asthma Drug abuse in remission Social History: Social History (Last Reviewed 01/22/23 @ 03:25 by Wesley Parks MD) Tobacco History: Patient Tobacco Use Status: Current everyday Tobacco Smoked in Last 30 Days: Yes Substance Use History: Substance Use Type: Heroin Advance Directives: Advance Directives: No Advance Directives Information Provided: Yes Nutrition Assessment: Nutrition Risks: No Nutritional Risk Home Medications and Allergies Current Medications: Current Medications Acetaminophen (Acetaminophen 325 Mg Tablet) 650 mg PO Q6H PRN PRN Reason: Pain, Mild (Pain Scale 1-3) Enoxaparin Sodium (Enoxaparin Sodium 40 Mg/0.4 Ml Syringe) 40 mg SUBCUT Q24H [facility] Last Admin: 01/22/23 04:23 Dose: 40 mg Ferrous Sulfate (Ferrous Sulfate 324 Mg Tablet.) 324 mg PO BIDWM [facility] Folic Acid (Folic Acid 1 Mg Tablet) 1 mg PO DAILY [facility] Last Admin: 01/22/23 09:33 Dose: 1 mg Ceftriaxone Sodium 1 gm/ (Sodium Chloride) 50 mls @ 100 mls/hr IV Q24H [facility] Vancomycin HCl 1,000 mg/ (Sodium Chloride) 270 mls @ 270 mls/hr IV Q12H [facility] Lorazepam (Lorazepam 0.5 Mg Tablet) 0.5 mg PO Q6H PRN PRN Reason: Restlessness Melatonin (Melatonin 3 Mg Tablet) 6 mg PO BEDTIME PRN PRN Reason: Insomnia Ondansetron HCl (Ondansetron Hcl 4 Mg/2 Ml Vial) 4 mg IVPUSH Q8H PRN PRN Reason: Nausea and Vomiting Pharmacy Consult (Consult Rx Perform Med Rec) 1 each MISCELLANE ONCE PRN PRN Reason: Consult order Pharmacy Consult (Consult Rx Vancomycin Dosing) 1 each MISCELLANE DAILY PRN PRN Reason: Consult order Sodium Chloride (0.9 % Sodium Chloride Flush 3 Ml Syringe) 3 ml IVFLUSH QSHIFT [facility] Last Admin: 01/22/23 09:33 Dose: 3 ml Allergies Allergy/AdvReac Type Severity Reaction Status Date / Time codeine [Codeine] Allergy Intermediate ITCHING, Verified 01/15/23 20:23 VOMTING, THROAT SWELLS tramadol [TRAMADOL] Allergy Intermediate BODY Verified 01/15/23 20:23 SWELLING acetaminophen Allergy Unknown Vomitting, Verified 01/15/23 20:23 [Tylenol-Codeine #3] Hives Physical Exam Vital signs: Vital Signs Temp 98.8 F 01/22/23 08:00 Pulse 75 01/22/23 08:00 Resp 13 01/22/23 08:00 BP 125/71 01/22/23 08:00 Pulse Ox 95 01/22/23 08:00 O2 Del Method 01/22/23 05:58 Intake & Output 01/21/23 01/22/23 01/22/23 18:59 06:59 18:59 Intake Total 550 / 815 265 / 815 Balance 550 / 815 265 / 815 Intake: Intake, IV Amount 550 / 815 265 / 815 cefTRIAXone sodium 1 gm In 0.9 50 / 50 % Sodium Chloride 50 ml @ 100 mls/hr IV ONCE ONE Rx#: [id number] vancomycin HCL 1,500 mg In 0.9 500 / 500 % Sodium Chloride 500 ml @ 333. 333 mls/hr IV ONCE ONE Rx#: [id number] vancomycin HCL 750 mg In 0.9 % 265 / 265 Sodium Chloride 250 ml @ 265 mls/hr IV ONCE ONE Rx#: [id number] Other: Number of Incontinent Voids 2 Weight 56.699 kg Weight 56.699 kg - Constitutional Present: mild distress, average body habitus - Routine HEENT Exam Head: Present: normal inspection Eye: Present: PERRL - Routine Neck Exam Present: supple. Absent: lymphadenopathy - Routine Respiratory Exam Absent: accessory muscle use - Routine Cardiovascular Exam Cardiovascular: Present: S1, S2 - Routine Abdominal Exam Present: soft - Routine Skin Exam Present: lesions - Routine Neurological Exam Present: alert, oriented X3, abnormal gait Hem/Onc Consult Result - Labs CBC & Chem 7: 01/22/23 05:40 01/22/23 05:40 Labs: Short CBC 01/21/23 01/22/23 Range/Units 12:41 05:40 WBC 8.7 7.9 (4.8-10.8) X10*3/uL Hgb 8.4 L 7.8 L (12.0-16.0) g/dl Hct 28.3 L 26.7 L (37.0-47.0) % Plt Count 453 H 487 H (160-400) X10*3/uL BMP 01/21/23 01/22/23 12:40 05:40 Sodium 137 140 Potassium 3.5 D 3.3 Chloride 99 102 Carbon Dioxide 29 30 H BUN 9 5 L Creatinine 0.65 0.58 Calcium 7.8 L D 7.8 L Cardiac Enzymes 01/21/23 Range/Units 12:40 Total Creatine Kinase 51 (26-140) U/L Liver Function 01/21/23 Range/Units 12:40 Total Bilirubin 0.3 (0.0-1.0) mg/dL Direct Bilirubin < 0.2 (0.0-0.5) mg/dL AST 10 (5-31) U/L ALT 7 (0-31) U/L Alkaline Phosphatase 91 (39-117) U/L Albumin 2.5 L (3.5-5.0) g/dL Assessment and Plan Patient Active problem list reviewed?: Yes (1) Anemia Status: Acute Assessment and plan: 1. This is a 47-year-old woman presenting with lower extremity weakness and sensory deficits found to have microcytic anemia. She is low in iron as well as folic acid, vitamin B12 level is normal. She has been started on oral iron and folic acid supplementation. Submit serum copper and zinc levels as well because of her neurological symptoms. 2. Lower extremity weakness /myelopathy. MRI lumbar spine suggesting a marrow infiltration process which is nonspecific. Can be seen with chronic anemia as well as infections/MDS. No other structural deformity. Neurological evaluation is recommended. I thank you for this referral, will follow with you. - Time Spent With Patient Time Spent with Patient (in minutes): 15
--- NOTE | 2023-01-22 14:19 | PM.DS ---
DS: Providers Provider Date of Service: 01/22/23 Date of admission: 01/22/23 03:18 Primary care physician: [facility] Consults: 01/22/23 03:29 Addiction Medicine Routine Consulting Provider: Addiction Richi Reason for consultation: Cocaine and heroin use disorder 01/22/23 03:32 Consult to Care Team Routine Comment: Reason for consultation: Cocaine and heroin use disorder 01/22/23 12:53 Consult to Hematology / Oncology Routine Consulting Provider: Ashanti Miranda Reason for consultation: anemia Has provider been notified: Yes DS: Summary Hospital Course Hospital Course: Date of Service: 01/22/23 Chief Complaint: Fever This is a 47-year-old female with pertinent history of polysubstance IV drug use disorder who presents to the emergency department for evaluation of fever and generalized weakness.? Patient states she started having fever about 2 days ago.? She also noticed her left upper extremity was red, swollen and tender.? It was associated with purulent discharge.? Patient also complains of dysuria and urinary urgency.? In the emergency department, patient initially said she could not walk and hence lumbar MRI was obtained.? However she was seen walking by the RN on her way to the restroom.? Patient did not want to have a conversation at the time of my evaluation.? Unable to obtain review of systems.? Patient's UDS positive for opiates, fentanyl and cocaine in the ER.? Urine suggestive of UTI. hospital course 47-year-old female with history of polysubstance IV drug use, presented to the emergency department for evaluation of fever and generalized weakness, patient admitted to medical floor with a diagnosis of left arm purulent cellulitis and acute UTI patient placed on IV ceftriaxone and vancomycin, blood cultures were obtained, had normal WBC and no fevers blood cultures and urine cultures were obtained, in regard to generalized weakness difficulty in ambulation MRI lumbar spine was obtained that showed no evidence of diskitis, osteomyelitis, epidural abscess or spinal canal stenosis, neurosurgery from [facility] was contacted they reviewed the MRI and did not feel this case sound like cauda eqina syndrome, patient was suppose to get the MRI thoracic spine and neurology consult, she was seen by security and was noted to have 2 drug pipes, patient refused to give belongings to security and decided to leave hospital against medical advice, patient awake alert to time place and person is fully aware of risk of worsening neurological deficit with high risk for paralysis,fall, and head trauma and also high risk of infections including endocarditis sepsis but patient not willing to stay in hospital she is agreeable to return to check if noted to have worsening lower extremity symptoms or worsening left arm swelling or discomfort, patient was evaluated by Addiction Team and was started on methadone for withdrawal symptoms, Addiction Team at bedside with patient while she is threatening to leave and offered medications for withdrawal but patient adamant to leave, patient was not willing to be admitted but was convinced to get admitted later again wanting to leave hospital this morning was convinced to stay but at this point she is not willing to stay. will discharge patient home on doxycycline and Keflex for left arm infection she has been informed that this is sub optimal treatment since cultures are not available and further workup including left arms CT scan has not been obtained to rule out abscess. in regard to chronic microcytic anemia patient noted to have low folic acid and low iron stores she denied active blood loss with no hematemesis or melena hematology consult was obtained patient was placed on folic acid and iron supplement, strongly recommend follow-up with primary care physician Cocaine and heroin use disorder:?? addiction team met with patient, patient was given methadone and was being reassessed when patient decided to leave hospital recommend outpatient follow-up at [facility]. hypoalbuminemia likely due to poor nutrition. Time Spent with Patient Time attestation: Total time managing care of this patient today ____ minutes. Discharge coordination time: Greater than 30 minutes Quality: Safe Use of Opioids Does Pt have an Active Cancer Diagnosis on the Problem List?: No Quality: Stroke Does the patient have a stroke diagnosis?: No Physical Exam Vital Signs: Vital Signs: Last Vital Signs Temp 98.8 F 01/22/23 08:00 Pulse 75 01/22/23 08:00 Resp 13 01/22/23 08:00 BP 125/71 01/22/23 08:00 Pulse Ox 95 01/22/23 08:00 O2 Del Method 01/22/23 05:58 BMI result Body Mass Index 22.1 Const: Other: patient refused to be examined please refer to examination done in history and physical this morning. DS: Data Data Completed and Pending Labs on day of discharge: Laboratory Results - last 24 hr 01/21/23 01/21/23 01/21/23 12:40 12:41 15:14 WBC RBC Hgb Hct MCV MCH MCHC RDW Plt Count MPV Immature Gran % (Auto) Neut % (Auto) Lymph % (Auto) [place] % (Auto) Eos % (Auto) Baso % (Auto) Lymph # (Auto) [place] # (Auto) Eos # (Auto) Baso # (Auto) Abs Immat Gran (auto) Absolute Neuts (auto) Absolute Nucleated RBC Nucleated RBC % (auto) ESR 92 H Sodium Potassium Chloride Carbon Dioxide Anion Gap BUN Creatinine Estim Creat Clear Calc Estimated GFR Random Glucose Lactic Acid 1.4 Calcium Iron 15 L TIBC 157 L % Saturation 10 L Unsat Iron Binding 142 Vitamin B12 643 Folate 2.9 L 01/22/23 01/22/23 05:40 05:40 WBC 7.9 RBC 3.40 L Hgb 7.8 L Hct 26.7 L MCV 78.5 L MCH 22.9 L MCHC 29.2 L RDW 16.7 H Plt Count 487 H MPV 9.7 Immature Gran % (Auto) 0.5 H Neut % (Auto) 69.1 Lymph % (Auto) 23.5 Harrison % (Auto) 6.4 Eos % (Auto) 0.1 Baso % (Auto) 0.4 Lymph # (Auto) 1.9 Harrison # (Auto) 0.5 Eos # (Auto) 0.0 Baso # (Auto) 0.0 Abs Immat Gran (auto) 0.04 H Absolute Neuts (auto) 5.4 Absolute Nucleated RBC 0.000 Nucleated RBC % (auto) 0.0 ESR Sodium 140 Potassium 3.3 Chloride 102 Carbon Dioxide 30 H Anion Gap 11 L BUN 5 L Creatinine 0.58 Estim Creat Clear Calc 98.1 Estimated GFR > 60 Random Glucose 91 Lactic Acid Calcium 7.8 L Iron TIBC % Saturation Unsat Iron Binding Vitamin B12 Folate Preliminary micro results at discharge 01/21/23 Unknown Urine Culture - Preliminary Urine clean catch - Urine chin top Culture too young to evaluate. Discharge Plan Discharge Anticipated Discharge Date/Time: 01/22/23 14:12 Patient Disposition: Left Against Medical Advice Discharge Diagnosis: lower extremity weakness,unsteady gait and fall left upper extremity cellulitis active IV drug use and withdrawal Referrals: [facility] [Primary Care Provider] - 1 Week Discharge Medications: New doxycycline hyclate 100 mg capsule 100 mg PO BID Qty: 20 0RF cephalexin 500 mg capsule 500 mg PO Q8H Qty: 21 0RF folic acid 1 mg Tablet 1 mg PO DAILY Qty: 30 0RF ferrous sulfate 324 mg (65 mg iron) Tablet,Delayed Release (Dr/Ec) 324 mg PO BIDWM Qty: 60 0RF Discharge Orders: Discharge Order (Routine); Ordered 01/22/23 Ordered By: Lluvia Dan Stand Alone Forms: Patient Portal Discharge page Care Plan Goals: unsteady gait for/ lower extremity weakness and fall, patient is adamant to leave hospital against medical advice not providing any reason to leave, patient is awake alert and understand risk of fall including head trauma/bleed, worsening lower extremity weakness left upper extremity cellulitis will discharge home on by mouth antibiotics recommend to keep left arm elevated return to check with worsening redness swelling and purulent drainage Health Concerns: active drug use, unsteady gait and fall, anemia, cellulitis Plan of Treatment: return to emergency room with worsening left arm redness swelling, difficulty in ambulation, call primary care physician for close outpatient follow-up Assessment: as above Discharge Date/Time: 01/22/23 14:42
--- NOTE | 2023-01-22 14:34 | PC.NURSE ---
Security in at bedside to search patients belongings. Security finding two drug pipes. Patient unwilling to give personal belongings to security. Requesting to leave AMA. Recovery team and hospitalist in at bedside. Patient continuing to grab at her IV catheter at her neck yelling take this out right now or I am going to leave with it. Patient readied for discharge and singing AMA papers.
--- NOTE | 2023-01-22 14:41 | HO.ADDICTPRO ---
Subjective Subjective Date of Service: 01/22/23 Reason For Visit: Weakness Interim History: Patient seen in follow up for [facility]. Seen numerous times by financial auditor throughout the day. Received methadone 20mg yesterday with positive effect. Earlier today stating she was feeling withdrawal and wanted to leave. Methadone 30mg ordered with positive effect. This check writer salesperson and financial auditor went to check in with patient in overflow and found patient with several [facility] security and nursing at bedside. Per RN, patient was found to have drug paraphernalia and refused to give it to security so she now was stating she wanted to leave. This check writer salesperson and financial auditor met with patient privately and attempted to discuss her desire to leave, however patient quickly pulled out a crack cocaine pipe and attempted to take a hit. This check writer salesperson firmly told patient no and asked her to put it away--patient agreeable, then statrted saying loudly she wanted to leave and asking to have TLC from neck removed. Attending proovider came and also attempted to get patient to stay and assess rationale for leaving, patient declining still. Prior to removal of TLC, this check writer salesperson asked patient to verbalize risks associated with leaving prior to completing treatment, and she was able to. She verbalized that she planned to roll picker her antibiotics at [facility] as well. She denied any withdrawal sx, offered medications to assist with anxiety/cocaine withdrawal if patient was experiencing this, patient declined and stated she was not experiencing withdrawal. While patient was loud and assertive when demanding to leave, at no time was she she aggressive or posturing--in fact, patient was apologetic stating I know this is stupid, I know, I just want to go home . Review of Systems Review of Systems Yes Other (deferred ) Mental Status Exam Mental Status Exam Level of Consciousness: Awake, Restless and Alert Patient Behavior: Uncooperative Judgement: Poor Diagnostics Vital Signs (24Hr): Vital Signs - 24 hr 01/21/23 22:27 01/22/23 00:00 01/22/23 01:56 Temperature 99.0 F 99.4 F 98.5 F Pulse Rate 75 85 77 Respiratory Rate 14 16 16 Blood Pressure 117/78 120/86 133/82 Pulse Oximetry 94 95 95 Oxygen Delivery Method Room Air Room Air Room Air 01/22/23 04:35 01/22/23 05:58 01/22/23 08:00 Temperature 98.3 F 98.2 F 98.8 F Pulse Rate 81 79 75 Respiratory Rate 16 16 13 Blood Pressure 127/77 115/85 125/71 Pulse Oximetry 94 96 95 Oxygen Delivery Method Room Air Room Air BMI result Body Mass Index 22.1 Labs 01/22/23 05:40 01/22/23 05:40 Labs: Laboratory Results - last 48 hr 01/21/23 01/21/23 01/21/23 11:22 11:22 11:22 WBC RBC Hgb Hct MCV MCH MCHC RDW Plt Count MPV Immature Gran % (Auto) Neut % (Auto) Lymph % (Auto) Harvey % (Auto) Eos % (Auto) Baso % (Auto) Lymph # (Auto) Harvey # (Auto) Eos # (Auto) Baso # (Auto) Abs Immat Gran (auto) Absolute Neuts (auto) Absolute Nucleated RBC Nucleated RBC % (auto) Smear Tech's Comments ESR PT INR Sodium Potassium Chloride Carbon Dioxide Anion Gap BUN Creatinine Estim Creat Clear Calc Estimated GFR Random Glucose Lactic Acid Calcium Magnesium Iron TIBC % Saturation Unsat Iron Binding Total Bilirubin Direct Bilirubin AST ALT Alkaline Phosphatase Total Creatine Kinase Troponin I High Sens C-Reactive Protein Total Protein Albumin Lipase Vitamin B12 Folate Urine Color Dark Yellow Urine Appearance Turbid Urine pH 6.5 Ur Specific [place] 1.025 Urine Protein 30 (1+) H Urine Glucose (UA) Negative Urine Ketones Trace Urine Blood Small (1+) H Urine Nitrite Positive H Ur Leukocyte Esterase Moderate (2+) H Urine RBC 11-20 H Urine WBC >50 H Ur Squamous Epith Cells 3-5 Other Crystals Present Urine Bacteria 4+ Hyaline Casts 0-2 Urine Test NEGATIVE Urine Opiates Screen Urine Fentanyl Screen Ur Barbiturates Screen Ur Phencyclidine Scrn Ur Amphetamines Screen U Benzodiazepines Scrn Urine Cocaine Screen U Marijuana (THC) Screen Ethyl Alcohol Influenza Type A (PCR) NEGATIVE Influenza Type B (PCR) NEGATIVE RSV RNA Qual (PCR) NEGATIVE SARS-CoV-2 RNA (RT-PCR) NEGATIVE 01/21/23 01/21/23 01/21/23 11:22 12:40 12:40 WBC RBC Hgb Hct MCV MCH MCHC RDW Plt Count MPV Immature Gran % (Auto) Neut % (Auto) Lymph % (Auto) Harvey % (Auto) Eos % (Auto) Baso % (Auto) Lymph # (Auto) Harvey # (Auto) Eos # (Auto) Baso # (Auto) Abs Immat Gran (auto) Absolute Neuts (auto) Absolute Nucleated RBC Nucleated RBC % (auto) Smear Tech's Comments ESR PT 12.8 INR 1.1 Sodium 137 Potassium 3.5 D Chloride 99 Carbon Dioxide 29 Anion Gap 13 BUN 9 Creatinine 0.65 Estim Creat Clear Calc 87.6 Estimated GFR > 60 Random Glucose 132 H Lactic Acid Calcium 7.8 L D Magnesium 1.9 Iron 15 L TIBC 157 L % Saturation 10 L Unsat Iron Binding 142 Total Bilirubin 0.3 Direct Bilirubin < 0.2 AST 10 ALT 7 Alkaline Phosphatase 91 Total Creatine Kinase 51 Troponin I High Sens C-Reactive Protein 16.54 H Total Protein 7.5 Albumin 2.5 L Lipase 11 Vitamin B12 643 Folate 2.9 L Urine Color Urine Appearance Urine pH Ur Specific [place] Urine Protein Urine Glucose (UA) Urine Ketones Urine Blood Urine Nitrite Ur Leukocyte Esterase Urine RBC Urine WBC Ur Squamous Epith Cells Other Crystals Urine Bacteria Hyaline Casts Urine Test Urine Opiates Screen POSITIVE H Urine Fentanyl Screen POSITIVE H Ur Barbiturates Screen Not Detected Ur Phencyclidine Scrn Not Detected Ur Amphetamines Screen Not Detected U Benzodiazepines Scrn Not Detected Urine Cocaine Screen POSITIVE H U Marijuana (THC) Screen Not Detected Ethyl Alcohol < 10 Influenza Type A (PCR) Influenza Type B (PCR) RSV RNA Qual (PCR) SARS-CoV-2 RNA (RT-PCR) 01/21/23 01/21/23 01/21/23 12:40 12:41 12:41 WBC 8.7 RBC 3.59 L Hgb 8.4 L Hct 28.3 L MCV 78.8 L MCH 23.4 L MCHC 29.7 L RDW 16.4 H Plt Count 453 H MPV Not Reportable Immature Gran % (Auto) 0.6 H Neut % (Auto) 75.9 H Lymph % (Auto) 16.6 L Harvey % (Auto) 6.1 Eos % (Auto) 0.3 Baso % (Auto) 0.5 Lymph # (Auto) 1.4 Harvey # (Auto) 0.5 Eos # (Auto) 0.0 Baso # (Auto) 0.0 Abs Immat Gran (auto) 0.05 H Absolute Neuts (auto) 6.6 Absolute Nucleated RBC 0.000 Nucleated RBC % (auto) 0.0 Smear Tech's Comments VERIFIED ESR 92 H PT INR Sodium Potassium Chloride Carbon Dioxide Anion Gap BUN Creatinine Estim Creat Clear Calc Estimated GFR Random Glucose Lactic Acid Calcium Magnesium Iron TIBC % Saturation Unsat Iron Binding Total Bilirubin Direct Bilirubin AST ALT Alkaline Phosphatase Total Creatine Kinase Troponin I High Sens < 3.5 C-Reactive Protein Total Protein Albumin Lipase Vitamin B12 Folate Urine Color Urine Appearance Urine pH Ur Specific [place] Urine Protein Urine Glucose (UA) Urine Ketones Urine Blood Urine Nitrite Ur Leukocyte Esterase Urine RBC Urine WBC Ur Squamous Epith Cells Other Crystals Urine Bacteria Hyaline Casts Urine Test Urine Opiates Screen Urine Fentanyl Screen Ur Barbiturates Screen Ur Phencyclidine Scrn Ur Amphetamines Screen U Benzodiazepines Scrn Urine Cocaine Screen U Marijuana (THC) Screen Ethyl Alcohol Influenza Type A (PCR) Influenza Type B (PCR) RSV RNA Qual (PCR) SARS-CoV-2 RNA (RT-PCR) 01/21/23 01/22/23 01/22/23 15:14 05:40 05:40 WBC 7.9 RBC 3.40 L Hgb 7.8 L Hct 26.7 L MCV 78.5 L MCH 22.9 L MCHC 29.2 L RDW 16.7 H Plt Count 487 H MPV 9.7 Immature Gran % (Auto) 0.5 H Neut % (Auto) 69.1 Lymph % (Auto) 23.5 Harvey % (Auto) 6.4 Eos % (Auto) 0.1 Baso % (Auto) 0.4 Lymph # (Auto) 1.9 Harvey # (Auto) 0.5 Eos # (Auto) 0.0 Baso # (Auto) 0.0 Abs Immat Gran (auto) 0.04 H Absolute Neuts (auto) 5.4 Absolute Nucleated RBC 0.000 Nucleated RBC % (auto) 0.0 Smear Tech's Comments ESR PT INR Sodium 140 Potassium 3.3 Chloride 102 Carbon Dioxide 30 H Anion Gap 11 L BUN 5 L Creatinine 0.58 Estim Creat Clear Calc 98.1 Estimated GFR > 60 Random Glucose 91 Lactic Acid 1.4 Calcium 7.8 L Magnesium Iron TIBC % Saturation Unsat Iron Binding Total Bilirubin Direct Bilirubin AST ALT Alkaline Phosphatase Total Creatine Kinase Troponin I High Sens C-Reactive Protein Total Protein Albumin Lipase Vitamin B12 Folate Urine Color Urine Appearance Urine pH Ur Specific [place] Urine Protein Urine Glucose (UA) Urine Ketones Urine Blood Urine Nitrite Ur Leukocyte Esterase Urine RBC Urine WBC Ur Squamous Epith Cells Other Crystals Urine Bacteria Hyaline Casts Urine Test Urine Opiates Screen Urine Fentanyl Screen Ur Barbiturates Screen Ur Phencyclidine Scrn Ur Amphetamines Screen U Benzodiazepines Scrn Urine Cocaine Screen U Marijuana (THC) Screen Ethyl Alcohol Influenza Type A (PCR) Influenza Type B (PCR) RSV RNA Qual (PCR) SARS-CoV-2 RNA (RT-PCR) Imaging Radiology Impressions: ITS Impressions Chest X-Ray 01/21/23 10:44 IMPRESSION: No acute pulmonary disease. Chest X-Ray 01/21/23 13:00 IMPRESSION: 1. No pleural effusion or pneumothorax. 2. Minimal right basilar atelectasis. Chest X-Ray 01/21/23 15:35 IMPRESSION: Right jugular line reaches the upper aspect of the right atrium. No evidence of pneumothorax or pleural effusion. Head CT 01/21/23 17:51 IMPRESSION: No evidence of acute intracranial hemorrhage or edematous territorial infarction with the caveat that evaluation of the inferior brain and posterior fossa is slightly limited by motion. KUB X-Ray 01/21/23 18:40 IMPRESSION: Unremarkable examination. No radiopaque foreign bodies are seen. Lumbar Spine MRI 01/21/23 21:44 IMPRESSION: 1. No evidence of discitis/osteomyelitis, epidural abscess, or significant spinal canal stenosis. 2. Generalized signal abnormality within the bone marrow which suggests a marrow infiltration process. This is nonspecific and possible etiologies include stimulated red marrow (as can be seen with smoking, altitude, chronic anemia, etc.), chronic infection, and early phases of myelodysplastic/myeloproliferative disorders. Consider correlation with clinical history and, potentially, a CBC with blood smear. 3. Partially visualized disc protrusion at T9-T10 which indents the ventral thecal sac but does not contribute to high-grade spinal canal stenosis. Abdomen/Pelvis CT 01/22/23 00:21 IMPRESSION: 1. A cause for the patient's diffuse abdominal pain has not been found. 2. Incidental note made of mild hepatosplenomegaly, stable left adrenal thickening and small amount of free fluid in the cul-de-sac. Fleischner guidelines were followed. Medications Medications Current Medications Acetaminophen (Acetaminophen 325 Mg Tablet) 650 mg PO Q6H PRN PRN Reason: Pain, Mild (Pain Scale 1-3) Enoxaparin Sodium (Enoxaparin Sodium 40 Mg/0.4 Ml Syringe) 40 mg SUBCUT Q24H [facility] Last Admin: 01/22/23 04:23 Dose: 40 mg Ferrous Sulfate (Ferrous Sulfate 324 Mg Tablet.) 324 mg PO BIDWM [facility] Folic Acid (Folic Acid 1 Mg Tablet) 1 mg PO DAILY [facility] Last Admin: 01/22/23 09:33 Dose: 1 mg Ceftriaxone Sodium 1 gm/ (Sodium Chloride) 50 mls @ 100 mls/hr IV Q24H [facility] Vancomycin HCl 1,000 mg/ (Sodium Chloride) 270 mls @ 270 mls/hr IV Q12H [facility] Lorazepam (Lorazepam 0.5 Mg Tablet) 0.5 mg PO Q6H PRN PRN Reason: Restlessness Melatonin (Melatonin 3 Mg Tablet) 6 mg PO BEDTIME PRN PRN Reason: Insomnia Ondansetron HCl (Ondansetron Hcl 4 Mg/2 Ml Vial) 4 mg IVPUSH Q8H PRN PRN Reason: Nausea and Vomiting Pharmacy Consult (Consult Rx Perform Med Rec) 1 each MISCELLANE ONCE PRN PRN Reason: Consult order Pharmacy Consult (Consult Rx Vancomycin Dosing) 1 each MISCELLANE DAILY PRN PRN Reason: Consult order Sodium Chloride (0.9 % Sodium Chloride Flush 3 Ml Syringe) 3 ml IVFLUSH QSHIFT [facility] Last Admin: 01/22/23 09:33 Dose: 3 ml Allergies Allergies Allergy/AdvReac Type Severity Reaction Status Date / Time codeine [Codeine] Allergy Intermediate ITCHING, Verified 01/15/23 20:23 VOMTING, THROAT SWELLS tramadol [TRAMADOL] Allergy Intermediate BODY Verified 01/15/23 20:23 SWELLING acetaminophen Allergy Unknown Vomitting, Verified 01/15/23 20:23 [Tylenol-Codeine #3] Hives Assessment & Plan Assessment & Plan (1) Opioid use disorder: Status: Acute Code(s): F11.90 - Opioid use, unspecified, uncomplicated Assessment and Plan: patient self initiated discharge. no additional follow up at this time (2) Cocaine use disorder: Status: Acute Code(s): F14.10 - Cocaine abuse, uncomplicated Total time managing care of this patient today _45___ minutes.
--- NOTE | 2023-01-22 14:53 | MHC.CM.PN ---
Patient left AMA before being seen by case management.
== END 2023-01-22 14:42 | disposition left against medical advice (07) | DRG 383 ==
LOC: HO.ED 01-22 03:07 → HO.EDOVER 01-22 05:05
PROVIDERS: Nurse Practitioner Family; Admitting Provider Student in an Organized Health Care Education/Training Program; Emergency Provider Emergency Medicine Emergency Medical Services; Visit Provider Hospitalist
DX: L03.114 Cellulitis of left upper limb (principal); E88.09 Other disorders of plasma-protein metabolism, not elsewhere classified; G95.9 Disease of spinal cord, unspecified; D50.9 Iron deficiency anemia, unspecified; F11.20 Opioid dependence, uncomplicated; F14.10 Cocaine abuse, uncomplicated; N39.0 Urinary tract infection, site not specified; F17.210 Nicotine dependence, cigarettes, uncomplicated; R26.81 Unsteadiness on feet; Z20.822 Contact with and (suspected) exposure to COVID-19; Z71.6 Tobacco abuse counseling; Z88.5 Allergy status to narcotic agent; Z88.6 Allergy status to analgesic agent; Z79.899 Other long term (current) drug therapy
CPT/HCPCS: 0241U; 36415; 70450; 71045; 71046; 72158; 74018; 74177; 80048; 80076; 80307; 81001; 81025; 82077; 82550; 82607; 82746; 83540; 83605; 83690; 83735; 84484; 85025; 85610; 85652; 86140; 87040; 87086; 93005; 97162; 99221; 99285; A9585; J0696; J1650; J2060; J3370; J3371; Q9967

== ENCOUNTER 2023-03-02 14:42 | Emergency (ER) | payer MEDICAID, SELFPAY ==
[2023-03-02] VITALS (7 sets, daily range): BP systolic 98–143; BP diastolic 60–82; PULSE 104–123; RESP 16–20; TEMP 36.9; O2SAT 93–98; BMI 21.0
--- NOTE | 2023-03-02 15:18 | ED.GENADULT ---
HPI - General Adult General Chief complaint: General Medical <VENTURA Brice - Last Filed: 03/03/23 12:25> Stated complaint: Neck pain? <VENTURA Brice - Last Filed: 03/03/23 12:25> Time Seen by Provider: 03/02/23 16:05 <VENTURA Brice - Last Filed: 03/03/23 12:25> Source: patient, RN notes reviewed, old records reviewed and other (outside records) <Mirza Gore - Last Filed: 03/02/23 21:08> Mode of arrival: wheelchair <Mirza Gore - Last Filed: 03/02/23 21:08> Limitations: physical limitation (Paraplegia, C-collar present) <Mirza Gore - Last Filed: 03/02/23 21:08> History of Present Illness HPI narrative: 47-year-old female with past medical history significant for polysubstance abuse, COPD presents for evaluation of fevers and neck pain. Patient arrives in a wheelchair. She reports that she had some sort of cervical spine surgery approximately 10 days ago at [facility]. She states that she had an infection ?osteomyelitis in her neck. She reports that she left [facility] against medical advice about 5 or 6 days ago She has not been taking any antibiotics She states that she presents to the ER today for fevers and worsening neck pain The patient reports that at her baseline since before the surgery she has been unable to move her legs but she still has sensation to lower extremities. This remains unchanged. The patient is able to move her upper extremities and has gross sensation intact to the upper extremities. She reports being incontinent of urine and stool since before her surgery as well. <Mirza Gore - Last Filed: 03/02/23 21:08> Related Data Home medications: Previous Rx's Medication Instructions Recorded cephalexin 500 mg capsule 500 mg PO Q8H #21 caps 01/22/23 doxycycline hyclate 100 mg capsule 100 mg PO BID #20 caps 01/22/23 ferrous sulfate 324 mg (65 mg 324 mg PO BIDWM #60 tabs 01/22/23 iron) tablet,delayed release folic acid 1 mg tablet 1 mg PO DAILY #30 tabs 01/22/23 <VENTURA Brice - Last Filed: 03/03/23 12:25> Allergies/adverse reactions: Allergies Allergy/AdvReac Type Severity Reaction Status Date / Time codeine [Codeine] Allergy Intermediate ITCHING, Verified 03/02/23 15:03 VOMTING, THROAT SWELLS tramadol [TRAMADOL] Allergy Intermediate BODY Verified 03/02/23 15:03 SWELLING <VENTURA Brice - Last Filed: 03/03/23 12:25> Review of Systems Constitutional: Constitutional: Reports as per HPI, Reports chills, Reports fever(s), Denies headache(s) and Reports weakness <Mirza Gore - Last Filed: 03/02/23 21:08> ENT: Denies headache(s) and Reports neck pain <Mirza Gore - Last Filed: 03/02/23 21:08> Cardiovascular: Cardiovascular: Denies chest pain and Denies dyspnea <Mirza Gore - Last Filed: 03/02/23 21:08> Respiratory: Respiratory: Denies cough and Denies dyspnea <Mirza Gore - Last Filed: 03/02/23 21:08> Gastrointestinal: Gastrointestinal: Denies abdominal pain, Denies constipation and Denies vomiting <Mirza Gore - Last Filed: 03/02/23 21:08> Genitourinary: Genitourinary: Denies dysuria <Mirza Gore - Last Filed: 03/02/23 21:08> Musculoskeletal: Musculoskeletal: Reports back pain, Reports neck pain and Reports numbness <Mirza Gore - Last Filed: 03/02/23 21:08> Neurologic: Denies headache(s), Reports focal weakness (to lower extremities), Reports numbness and Reports weakness <Mirza Gore - Last Filed: 03/02/23 21:08> [facility] Past Medical History Medical History: Medical History Asthma Drug abuse in remission <VENTURA Brice - Last Filed: 03/03/23 12:25> Social History Social History: Social History Alcohol intake: never Patient Tobacco Use Status: Current everyday Tobacco user Smoked in Last 30 Days: Yes Use of substances other than those prescribed or required for medical reasons: Yes Substance Use Type: Heroin Advance Directives: No Advance Directives Information Provided: No <VENTURA Brice - Last Filed: 03/03/23 12:25> Physical Exam ED Vital Signs: Vital Signs - 24 hr 03/02/23 15:03 03/02/23 17:03 03/02/23 17:06 Temperature 98.5 F Pulse Rate 123 H 111 H Respiratory Rate 20 19 18 Blood Pressure 116/82 103/73 Pulse Oximetry 96 Oxygen Delivery Method Room Air Oxygen Flow Rate 03/02/23 18:47 03/02/23 20:00 03/02/23 20:39 Temperature Pulse Rate 104 H 106 H Respiratory Rate 16 19 18 Blood Pressure 143/76 H 98/60 Pulse Oximetry 93 98 Oxygen Delivery Method Room Air Nasal Cannula Oxygen Flow Rate 2 03/02/23 22:02 Temperature Pulse Rate 114 H Respiratory Rate 16 Blood Pressure 107/61 Pulse Oximetry 96 Oxygen Delivery Method Room Air Oxygen Flow Rate BMI result Body Mass Index 21.0 <VENTURA Brice - Last Filed: 03/03/23 12:25> Vital Signs - 24 hr 03/02/23 15:03 03/02/23 17:03 03/02/23 17:06 Temperature 98.5 F Pulse Rate 123 H 111 H Respiratory Rate 20 19 18 Blood Pressure 116/82 103/73 Pulse Oximetry 96 Oxygen Delivery Method Room Air Oxygen Flow Rate 03/02/23 18:47 03/02/23 20:00 03/02/23 20:39 Temperature Pulse Rate 104 H 106 H Respiratory Rate 16 19 18 Blood Pressure 143/76 H 98/60 Pulse Oximetry 93 98 Oxygen Delivery Method Room Air Nasal Cannula Oxygen Flow Rate 2 03/02/23 22:02 Temperature Pulse Rate 114 H Respiratory Rate 16 Blood Pressure 107/61 Pulse Oximetry 96 Oxygen Delivery Method Room Air Oxygen Flow Rate BMI result Body Mass Index 21.0 <Mirza Gore - Last Filed: 03/02/23 21:08> Const General: comfortable, no acute distress, alert and awake <Mirza Gore - Last Filed: 03/02/23 21:08> Nutritional Appearance: well nourished <Mirza Gore - Last Filed: 03/02/23 21:08> Orientation/consciousness: patient oriented x3 <Mirza Last Filed: 03/02/23 21:08> HENMT Head: Yes normocephalic and Yes atraumatic < Last Filed: 03/02/23 21:08> Throat: Yes posterior oropharynx normal < Last Filed: 03/02/23 21:08> Eyes Eyelids: Yes eyelids normal < Last Filed: 03/02/23 21:08> Conjunctivae: conjunctivae normal < Last Filed: 03/02/23 21:08> Sclerae: sclerae normal < Last Filed: 03/02/23 21:08> Corneas: corneas normal < Last Filed: 03/02/23 21:08> Pupils: Equal, round and reactive pupils present < Last Filed: 03/02/23 21:08> EOM: EOMs intact bilaterally < Last Filed: 03/02/23 21:08> Neck Other: Patient has a large posterior neck incision. There is no surrounding erythema, no purulent drainage. The wound remains intact. No fluctuance or palpable masses adjacent to the wound. Patient does have midline cervical spine tenderness. No anterior neck edema or skin changes < Last Filed: 03/02/23 21:08> Resp Effort & Inspection: normal respiratory effort, able to speak in complete sentences, no audible wheezes and not labored < Last Filed: 03/02/23 21:08> Auscultation: clear to auscultation bilaterally < Last Filed: 03/02/23 21:08> Cardio Rate: regular rate < Last Filed: 03/02/23 21:08> Rhythm: regular rhythm < Last Filed: 03/02/23 21:08> GI Inspection: No distended < Last Filed: 03/02/23 21:08> Palpation (GI): Soft to palpation, not firm, nontender, no guarding and not rigid <Mirza Gore - Last Filed: 03/02/23 21:08> Auscultation: normoactive bowel sounds <Mirza Gore - Last Filed: 03/02/23 21:08> Skin General skin exam: no rashes or lesions noted and elasticity normal <Mirza Asify - Last Filed: 03/02/23 21:08> Neuro General: patient oriented x3 <Mirzahailey Gore - Last Filed: 03/02/23 21:08> Cranial nerves: Yes CN's II-XII intact bilaterally, Yes Equal, round and reactive pupils present and Yes Bilaterally intact EOM present <Mirza Gore - Last Filed: 03/02/23 21:08> Cognition (Neuro): normal cognition <Mirza Gore - Last Filed: 03/02/23 21:08> Extrem Other: Patient is able to move both upper extremities well with full range of motion, strength 5 out of 5 with supervisor policy change clerks strength, all major muscle groups of the upper extremities. Sensation remains intact to lower extremities. Average was removed the lower extremities bilaterally. Unable to assess reflexes to lower extremities as the patient has a C-collar <Mirza Gore - Last Filed: 03/02/23 21:08> Course Course Course Narrative: RME: 47 yold s/p spine surgery from neck down at [facility] for osteomyelitis last week. patient removed her neck brace due to pain. thinks wound infected. Patietnt today having urinary/bowel incontinence. patient states having feeling of lower extremity intact, just not able to move lower extremities since before surgery. patient able to move upper extremites. patient has feeling in lower exam on physical exam. patient placed on neck brace and brought to ED bed 18 immedeiatley. labs nordered <VENTURA Brice - Last Filed: 03/03/23 12:25> Reevaluation(s) Reevaluation #1: I was able to obtain a discharge summary from [facility] dated 02/18/2023 at 5:40 p.m. discharge diagnosis reads paraplegia, complete, impaired mobility and ADLs, neurogenic bladder, it is osteomyelitis of thoracic spine status post C5-T4 fusion and T1-T2 laminectomies, MRSA bacteremia and opiate use disorder. She has the patient had an epidural abscess and left AMA on 01/30/2023, she returned on 02/06/2023 and underwent C for the T4 fusion with T1, T2 laminectomy on 02/12/2023. There was spinal cord involvement leading to complete paraplegia and neurogenic bladder. Apparently the patient left AMA on 02/10/23 after reporting that her apartment was condemned that she needed to take care of her belongings. The patient also had a right VATS procedure due to partial lung decortication empyema evacuation with a right posterior mediastinal phlegmon on 02/07/2023. The patient remains afebrile, cells him to get labs here. Very low threshold for transfer back to [facility] as we do not have neurosurgical coverage at this facility. <Mirza Gore - Last Filed: 03/02/23 21:08> Time: 17:47 <Mirza Gore - Last Filed: 03/02/23 21:08> Reevaluation #2: Patient's labs were successfully drawn, she had leukocytosis of 16 point 1000 with elevated inflammatory markers, lactate of 2.7. Will discuss with [facility] transfer line, as the patient had multiple and significant surgeries at their facility within the last month. We also did not have any neurosurgical coverage at this facility. <Mirza Gore - Last Filed: 03/02/23 21:08> Time: 19:45 <Mirza Gore - Last Filed: 03/02/23 21:08> Reevaluation #3: I was able to discuss with [facility] transfer line and the patient will be accepted as a direct admission to the medical floor under Dr. Brower. I previously discussed with [facility] neuro surgery who would like to evaluate the patient when she gets there but does not feel there is any emergent neurosurgical intervention at this time. <Mirza Gore - Last Filed: 03/02/23 21:08> Time: 21:06 <Mirza Gore - Last Filed: 03/02/23 21:08> Medications Administered Discontinued Medications Generic Name Dose Route Start Last Admin Trade Name Freq PRN Reason Stop Dose Admin Sodium Chloride 1,000 mls @ 999 mls/hr 03/02/23 16:45 03/02/23 18:41 Ns IV 03/02/23 17:45 Infused .Q1H1M THEODORE Infusion Vancomycin HCl 1,000 mg/ 270 mls @ 270 mls/hr 03/02/23 17:44 03/02/23 21:06 Sodium Chloride IV 03/02/23 18:43 Infused ONCE ONE Infusion Morphine Sulfate 4 mg 03/02/23 16:41 03/02/23 17:03 Morphine Sulfate 4 Mg/Ml Cartridge IVPUSH 03/02/23 16:42 4 mg ONCE ONE Administration Protocol Morphine Sulfate 4 mg 03/02/23 20:35 03/02/23 20:39 Morphine Sulfate 4 Mg/Ml Cartridge IVPUSH 03/02/23 20:36 4 mg ONCE ONE Administration Protocol Ondansetron HCl 4 mg 03/02/23 16:41 03/02/23 17:03 Ondansetron Hcl 4 Mg/2 Ml Vial IVPUSH 03/02/23 16:42 4 mg ONCE ONE Administration <VENTURA Brice - Last Filed: 03/03/23 12:25> Medications Administered Discontinued Medications Generic Name Dose Route Start Last Admin Trade Name Freq PRN Reason Stop Dose Admin Sodium Chloride 1,000 mls @ 999 mls/hr 03/02/23 16:45 03/02/23 18:41 Ns IV 03/02/23 17:45 Infused .Q1H1M THEODORE Infusion Vancomycin HCl 1,000 mg/ 270 mls @ 270 mls/hr 03/02/23 17:44 03/02/23 21:06 Sodium Chloride IV 03/02/23 18:43 Infused ONCE ONE Infusion Morphine Sulfate 4 mg 03/02/23 16:41 03/02/23 17:03 Morphine Sulfate 4 Mg/Ml Cartridge IVPUSH 03/02/23 16:42 4 mg ONCE ONE Administration Protocol Morphine Sulfate 4 mg 03/02/23 20:35 03/02/23 20:39 Morphine Sulfate 4 Mg/Ml Cartridge IVPUSH 03/02/23 20:36 4 mg ONCE ONE Administration Protocol Ondansetron HCl 4 mg 03/02/23 16:41 03/02/23 17:03 Ondansetron Hcl 4 Mg/2 Ml Vial IVPUSH 03/02/23 16:42 4 mg ONCE ONE Administration <Mirza Gore - Last Filed: 03/02/23 21:08> Medical Decision Making Medical Decision Making [facility] Narrative: This is a 39 female with past medical history significant for polysubstance abuse presenting for evaluation of neck pain and fevers. She reports that she had surgery at [facility] about 10 days ago, will attempt to get records from this visit. She reports that against medical advice. Given that she reports that she had osteomyelitis and some sort of washout, she is likely supposed to be on antibiotics for at least a few weeks. The patient is currently afebrile but is tachycardic to 120. Will treat with IV fluids, analgesia. Will get labs. The patient's neuro status is difficult to ascertain, but appears to be at her baseline per her report with lower extremity weakness. I personally placed a left upper extremity ultrasound guided IV. 20 gauge, 2-1/2 inch catheter. <Mirza Gore - Last Filed: 03/02/23 21:08> Differential Diagnosis Osteomyelitis Diskitis Spinal abscess Bacteremia Cord compression <Mirza Gore - Last Filed: 03/02/23 21:08> Lab Data Result Diagrams: 03/02/23 18:44 03/02/23 18:44 <VENTURA Brice - Last Filed: 03/03/23 12:25> Labs: Lab Results 03/02/23 03/02/23 03/02/23 Range/Units 17:53 18:44 18:44 WBC 16.3 H (4.8-10.8) X10*3/uL RBC 3.61 L (4.20-5.50) X10*6/uL Hgb 8.4 L (12.0-16.0) g/dl Hct 28.0 L (37.0-47.0) % MCV 77.6 L (80.0-98.0) fL MCH 23.3 L (27.0-33.0) pg MCHC 30.0 L (31.0-35.0) g/dl RDW 17.7 H (11.0-16.0) % Plt Count 509 H (160-400) X10*3/uL MPV 9.8 (9.4-12.3) fL Immature Gran % (Auto) 0.4 (0.0-0.4) % Neut % (Auto) 80.1 H (45-73) % Lymph % (Auto) 12.8 L (20-40) % Meade % (Auto) 5.6 (2-11) % Eos % (Auto) 0.8 (0-4) % Baso % (Auto) 0.3 (0-2) % Lymph # (Auto) 2.1 (1.2-4.9) X10*3/uL Meade # (Auto) 0.9 (0.1-1.2) X10*3/uL Eos # (Auto) 0.1 (0.0-0.4) X10*3/uL Baso # (Auto) 0.1 (0.0-0.2) X10*3/uL Abs Immat Gran (auto) 0.07 H (0.00-0.03) X10*3/uL Absolute Neuts (auto) 13.0 H (2.0-8.3) x10*3/uL Absolute Nucleated RBC 0.000 (0.0-0.012) X10*3/uL Nucleated RBC % (auto) 0.0 (0.0-0.2) /100WBC ESR 107 H (0-20) MM/HR PT (10.0-13.1) SEC INR (0.9-1.1) APTT (26.0-36.4) SEC Sodium (135-145) mmol/L Potassium (3.3-5.1) mmol/L Chloride (96-108) mmol/L Carbon Dioxide (22-29) mmol/L Anion Gap (12-20) BUN (9-16) mg/dL Creatinine (0.5-1.4) mg/dL Estim Creat Clear Calc Estimated GFR Random Glucose (60-115) mg/dL Lactic Acid (0.5-2.0) mmol/L Calcium (8.4-10.2) mg/dL Total Bilirubin (0.0-1.0) mg/dL AST (5-31) U/L ALT (0-31) U/L Alkaline Phosphatase (39-117) U/L C-Reactive Protein (< or = 0.50) mg/dL Total Protein (6.5-8.0) g/dL Albumin (3.5-5.0) g/dL Influenza Type A (PCR) NEGATIVE (Negative) Influenza Type B (PCR) NEGATIVE (Negative) RSV RNA Qual (PCR) NEGATIVE (Negative) SARS-CoV-2 RNA (RT-PCR) NEGATIVE (Negative) 03/02/23 03/02/23 03/02/23 Range/Units 18:44 18:44 18:44 WBC (4.8-10.8) X10*3/uL RBC (4.20-5.50) X10*6/uL Hgb (12.0-16.0) g/dl Hct (37.0-47.0) % MCV (80.0-98.0) fL MCH (27.0-33.0) pg MCHC (31.0-35.0) g/dl RDW (11.0-16.0) % Plt Count (160-400) X10*3/uL MPV (9.4-12.3) fL Immature Gran % (Auto) (0.0-0.4) % Neut % (Auto) (45-73) % Lymph % (Auto) (20-40) % Meade % (Auto) (2-11) % Eos % (Auto) (0-4) % Baso % (Auto) (0-2) % Lymph # (Auto) (1.2-4.9) X10*3/uL Meade # (Auto) (0.1-1.2) X10*3/uL Eos # (Auto) (0.0-0.4) X10*3/uL Baso # (Auto) (0.0-0.2) X10*3/uL Abs Immat Gran (auto) (0.00-0.03) X10*3/uL Absolute Neuts (auto) (2.0-8.3) x10*3/uL Absolute Nucleated RBC (0.0-0.012) X10*3/uL Nucleated RBC % (auto) (0.0-0.2) /100WBC ESR (0-20) MM/HR PT 15.4 H (10.0-13.1) SEC INR 1.3 H (0.9-1.1) APTT 23.3 L (26.0-36.4) SEC Sodium 134 L (135-145) mmol/L Potassium 3.4 (3.3-5.1) mmol/L Chloride 96 (96-108) mmol/L Carbon Dioxide 28 (22-29) mmol/L Anion Gap 13 (12-20) BUN 7 L (9-16) mg/dL Creatinine 0.54 (0.5-1.4) mg/dL Estim Creat Clear Calc 100.7 Estimated GFR > 60 Random Glucose 101 (60-115) mg/dL Lactic Acid 2.7 H* (0.5-2.0) mmol/L Calcium 8.1 L (8.4-10.2) mg/dL Total Bilirubin 0.5 (0.0-1.0) mg/dL AST 18 (5-31) U/L ALT 15 (0-31) U/L Alkaline Phosphatase 170 H (39-117) U/L C-Reactive Protein 28.50 H (< or = 0.50) mg/dL Total Protein 6.9 (6.5-8.0) g/dL Albumin 2.4 L (3.5-5.0) g/dL Influenza Type A (PCR) (Negative) Influenza Type B (PCR) (Negative) RSV RNA Qual (PCR) (Negative) SARS-CoV-2 RNA (RT-PCR) (Negative) <VENTURA Brice - Last Filed: 03/03/23 12:25> Lab Results 03/02/23 03/02/23 03/02/23 Range/Units 17:53 18:44 18:44 WBC 16.3 H (4.8-10.8) X10*3/uL RBC 3.61 L (4.20-5.50) X10*6/uL Hgb 8.4 L (12.0-16.0) g/dl Hct 28.0 L (37.0-47.0) % MCV 77.6 L (80.0-98.0) fL MCH 23.3 L (27.0-33.0) pg MCHC 30.0 L (31.0-35.0) g/dl RDW 17.7 H (11.0-16.0) % Plt Count 509 H (160-400) X10*3/uL MPV 9.8 (9.4-12.3) fL Immature Gran % (Auto) 0.4 (0.0-0.4) % Neut % (Auto) 80.1 H (45-73) % Lymph % (Auto) 12.8 L (20-40) % Meade % (Auto) 5.6 (2-11) % Eos % (Auto) 0.8 (0-4) % Baso % (Auto) 0.3 (0-2) % Lymph # (Auto) 2.1 (1.2-4.9) X10*3/uL Meade # (Auto) 0.9 (0.1-1.2) X10*3/uL Eos # (Auto) 0.1 (0.0-0.4) X10*3/uL Baso # (Auto) 0.1 (0.0-0.2) X10*3/uL Abs Immat Gran (auto) 0.07 H (0.00-0.03) X10*3/uL Absolute Neuts (auto) 13.0 H (2.0-8.3) x10*3/uL Absolute Nucleated RBC 0.000 (0.0-0.012) X10*3/uL Nucleated RBC % (auto) 0.0 (0.0-0.2) /100WBC ESR 107 H (0-20) MM/HR PT (10.0-13.1) SEC INR (0.9-1.1) APTT (26.0-36.4) SEC Sodium (135-145) mmol/L Potassium (3.3-5.1) mmol/L Chloride (96-108) mmol/L Carbon Dioxide (22-29) mmol/L Anion Gap (12-20) BUN (9-16) mg/dL Creatinine (0.5-1.4) mg/dL Estim Creat Clear Calc Estimated GFR Random Glucose (60-115) mg/dL Lactic Acid (0.5-2.0) mmol/L Calcium (8.4-10.2) mg/dL Total Bilirubin (0.0-1.0) mg/dL AST (5-31) U/L ALT (0-31) U/L Alkaline Phosphatase (39-117) U/L C-Reactive Protein (< or = 0.50) mg/dL Total Protein (6.5-8.0) g/dL Albumin (3.5-5.0) g/dL Influenza Type A (PCR) NEGATIVE (Negative) Influenza Type B (PCR) NEGATIVE (Negative) RSV RNA Qual (PCR) NEGATIVE (Negative) SARS-CoV-2 RNA (RT-PCR) NEGATIVE (Negative) 03/02/23 03/02/23 03/02/23 Range/Units 18:44 18:44 18:44 WBC (4.8-10.8) X10*3/uL RBC (4.20-5.50) X10*6/uL Hgb (12.0-16.0) g/dl Hct (37.0-47.0) % MCV (80.0-98.0) fL MCH (27.0-33.0) pg MCHC (31.0-35.0) g/dl RDW (11.0-16.0) % Plt Count (160-400) X10*3/uL MPV (9.4-12.3) fL Immature Gran % (Auto) (0.0-0.4) % Neut % (Auto) (45-73) % Lymph % (Auto) (20-40) % Meade % (Auto) (2-11) % Eos % (Auto) (0-4) % Baso % (Auto) (0-2) % Lymph # (Auto) (1.2-4.9) X10*3/uL Meade # (Auto) (0.1-1.2) X10*3/uL Eos # (Auto) (0.0-0.4) X10*3/uL Baso # (Auto) (0.0-0.2) X10*3/uL Abs Immat Gran (auto) (0.00-0.03) X10*3/uL Absolute Neuts (auto) (2.0-8.3) x10*3/uL Absolute Nucleated RBC (0.0-0.012) X10*3/uL Nucleated RBC % (auto) (0.0-0.2) /100WBC ESR (0-20) MM/HR PT 15.4 H (10.0-13.1) SEC INR 1.3 H (0.9-1.1) APTT 23.3 L (26.0-36.4) SEC Sodium 134 L (135-145) mmol/L Potassium 3.4 (3.3-5.1) mmol/L Chloride 96 (96-108) mmol/L Carbon Dioxide 28 (22-29) mmol/L Anion Gap 13 (12-20) BUN 7 L (9-16) mg/dL Creatinine 0.54 (0.5-1.4) mg/dL Estim Creat Clear Calc 100.7 Estimated GFR > 60 Random Glucose 101 (60-115) mg/dL Lactic Acid 2.7 H* (0.5-2.0) mmol/L Calcium 8.1 L (8.4-10.2) mg/dL Total Bilirubin 0.5 (0.0-1.0) mg/dL AST 18 (5-31) U/L ALT 15 (0-31) U/L Alkaline Phosphatase 170 H (39-117) U/L C-Reactive Protein 28.50 H (< or = 0.50) mg/dL Total Protein 6.9 (6.5-8.0) g/dL Albumin 2.4 L (3.5-5.0) g/dL Influenza Type A (PCR) (Negative) Influenza Type B (PCR) (Negative) RSV RNA Qual (PCR) (Negative) SARS-CoV-2 RNA (RT-PCR) (Negative) <Mirza Gore - Last Filed: 03/02/23 21:08> Discharge Plan Discharge Clinical Impression: Acute osteomyelitis of thoracic spine, MRSA bacteremia <VENTURA Brice - Last Filed: 03/03/23 12:25> Patient Disposition: [facility] <VENTURA Brice - Last Filed: 03/03/23 12:25> Transfer Details: [facility] direct admission <VENTURA Brice - Last Filed: 03/03/23 12:25> [facility] direct admission <Mirza Gore - Last Filed: 03/02/23 21:08> Prescriptions: No Action doxycycline hyclate 100 mg capsule 100 mg PO BID Qty: 20 0RF cephalexin 500 mg capsule 500 mg PO Q8H Qty: 21 0RF folic acid 1 mg Tablet 1 mg PO DAILY Qty: 30 0RF ferrous sulfate 324 mg (65 mg iron) Tablet,Delayed Release (Dr/Ec) 324 mg PO BIDWM Qty: 60 0RF <VENTURA Brice - Last Filed: 03/03/23 12:25> Interventions: Acute Care Transfer Worksheet (ED) Last Done: 03/02/23 22:22 <VENTURA Brice - Last Filed: 03/03/23 12:25> Discharge Date/Time: 03/02/23 23:02 <VENTURA Brice - Last Filed: 03/03/23 12:25>
--- NOTE | 2023-03-02 16:16 | PC.NURSE ---
pt is alert and oriented, skin appropriate for ethnicity, respirations even and unlabored, pt reports having a back surgery done about 10 days ago, now pt states that she can't feel her legs, is having incontinence episodes but this is not new to the pt. c-jen applied in triage. pt's left forearm with a large wound, bilateral lower extremities swollen. having a hard time gaining an iv access, currently Idris castano attempting to get iv access with an ultrasound
[2023-03-02] MEDS: Morphine Sulfate 4 MG/ML CARTRIDGE IVPUSH ×2 (17:03→20:39)
[2023-03-02] MEDS: ondansetron HCL 4 MG/2 ML VIAL IVPUSH (17:03)
[2023-03-02] MEDS: 0.9 % Sodium Chloride 1,000 ML 999 ML IV (17:04)
--- NOTE | 2023-03-02 17:55 | PC.NURSE ---
still unable to obtain labs, pt is a very difficult stick. phlebotomy was called, awaiting for them to come up
[2023-03-02 18:38] LABS: Influenza A PCR NEGATIVE (Negative); Influenza B PCR NEGATIVE (Negative); Resp Syncy Virus RNA Qual PCR NEGATIVE (Negative); SARS COV2 PCR INHOUSE NEGATIVE (Negative)
[2023-03-02 18:49] LABS: MANUAL DIFF FLAG NO
[2023-03-02 18:56] LABS: Basophils Absolute Auto 0.1 X10*3/uL (0.0-0.2); Basophils Percent Auto 0.3 % (0-2); Eosinophils Absolute Auto 0.1 X10*3/uL (0.0-0.4); Eosinophils Percent Auto 0.8 % (0-4); Hemoglobin 8.4 g/dl (12.0-16.0); Imm Gran Abs Auto 0.07 X10*3/uL (0.00-0.03); Imm Gran Pct Auto 0.4 % (0.0-0.4); Lymphocytes Absolute Auto 2.1 X10*3/uL (1.2-4.9); Lymphocytes Percent Auto 12.8 % (20-40); Mean Corpuscular Hemoglobin 23.3 pg (27.0-33.0); Mean Corpuscular Volume 77.6 fL (80.0-98.0); Mean Platelet Volume 9.8 fL (9.4-12.3); Monocytes Absolute Auto 0.9 X10*3/uL (0.1-1.2); Monocytes Percent Auto 5.6 % (2-11); Neutrophils Percent Auto 80.1 % (45-73); Platelet Count 509 X10*3/uL (160-400); Red Blood Count 3.61 X10*6/uL (4.20-5.50); Red Cell Distribution Width 17.7 % (11.0-16.0); White Blood Count 16.3 X10*3/uL (4.8-10.8)
[2023-03-02 19:03] LABS: INTERNATIONAL NORM RATIO 1.3 (0.9-1.1); Prothrombin Time 15.4 SEC (10.0-13.1)
[2023-03-02 19:08] LABS: Alanine Aminotransferase 15 U/L (0-31); Albumin Level 2.4 g/dL (3.5-5.0); Alkaline Phosphatase 170 U/L (39-117); Anion Gap 13 (12-20); Aspartate Amino Transferase 18 U/L (5-31); Bilirubin Total 0.5 mg/dL (0.0-1.0); Blood Urea Nitrogen 7 mg/dL (9-16); Calcium 8.1 mg/dL (8.4-10.2); Carbon Dioxide 28 mmol/L (22-29); Chloride 96 mmol/L (96-108); Creatinine Clr Calc Pharmacy 100.7; Estimated Glomerular Filt Rate > 60; Glucose Random 101 mg/dL (60-115); Potassium 3.4 mmol/L (3.3-5.1); Sodium 134 mmol/L (135-145); Total Protein 6.9 g/dL (6.5-8.0)
[2023-03-02 19:14] LABS: Lactic Acid 2.7 mmol/L (0.5-2.0); Partial Thromboplastin Time 23.3 SEC (26.0-36.4)
[2023-03-02] MEDS: vancomycin HCL 1,000 MG in 0.9 % Sodium Chloride 250 ML 270 MG IV (19:33)
--- NOTE | 2023-03-02 19:54 | PC.NURSE ---
Resumed care of the pt at 1900. Pt is resting in bed with a c-collar applied and an IV in the left upper arm. Pt was rolled to her side, RN found a wound on the coccyx area. Pt skin is raw and red with some drainage present. Pt is complaining of pain in her neck and back. Pt was repositioned to her left with a pillow behind her back.
--- NOTE | 2023-03-02 20:12 | PC.NURSE ---
Pt O2 noted to be in the mid 80's. O2 did not increase despite deep breathing. Pt was put on O2 at 2 LPM via NC. O2 increased to 96%.
--- NOTE | 2023-03-02 20:22 | MHC.EDTECH ---
[facility] transfer line called at 1938 per Mirza WHITEHEAD,spoke with Alyssia gave patient demographics,awaiting a call back. Received a call from Magali from [facility] at 1955,asked to speak to Mirza WHITEHEAD.
[2023-03-02 20:46] LABS: Reflex Lactate? Lactic Acid Added
--- NOTE | 2023-03-02 20:53 | MHC.EDTECH ---
This US/PCT called [facility] for an update,spoke with Magali she stated she is calling provider back,awaiting a call at this time.PA aware
--- NOTE | 2023-03-02 21:05 | PC.NURSE ---
Pr VENTURA Gore, Reflex lactic will be cancelled. Pt is a hard stick and will be transferred soon.
--- NOTE | 2023-03-02 21:46 | MHC.EDTECH ---
At 2142 Vidal from [facility]'s bed placement called with a room assignment. Patient is going to [place] [address] Room 7,Accepting Doctor is DR.Abhinaz Sanders. PA and RN aware Nurse to Nurse report [phone]
--- NOTE | 2023-03-02 21:49 | MHC.EDTECH ---
Xavier called at 2151 for a BLS transfer to [place] [address] Room 7.
--- NOTE | 2023-03-02 22:11 | PC.NURSE ---
Attempted to give [id number] at 22:11. Nurse was unavailable and stated she will call back for report.
[2023-03-02 22:18] LABS: Erythrocyte Sedimentation Rate 107 MM/HR (0-20)
--- NOTE | 2023-03-02 22:21 | PC.NURSE ---
Report given at 22:21 [facility]
--- NOTE | 2023-03-02 22:40 | MHC.EDTECH ---
[facility] arrived 2238 for transport.RN aware
== END 2023-03-02 23:02 | disposition short-term general hospital (02) ==
PROVIDERS: Physician Assistant; Emergency Provider Internal Medicine
DX: M46.24 Osteomyelitis of vertebra, thoracic region (principal); A49.02 Methicillin resistant Staphylococcus aureus infection, unspecified site; Z20.822 Contact with and (suspected) exposure to COVID-19; Z20.828 Contact with and (suspected) exposure to other viral communicable diseases; Z79.899 Other long term (current) drug therapy
CPT/HCPCS: 0241U; 80053; 83605; 85025; 85610; 85652; 85730; 86140; 87040; 87077; 87186; 87205; 99285; J2270; J2405; J3370

== ENCOUNTER 2023-03-10 09:06 | Emergency (ER) | payer MEDICAID, SELFPAY ==
[2023-03-10 09:24] VITALS: BP 130/65; BP 132/74; PULSE 61; PULSE 86; RESP 16; TEMP 36.7; O2SAT 97; O2SAT 99; BMI 18.6
--- NOTE | 2023-03-10 11:01 | ED_ITS ---
HPI - General Adult General Chief complaint: Back Pain/Injury Stated complaint: BACK SURG @[facility] X1 WK,RED/PAIN @ SITE PER EMS Time Seen by Provider: 03/10/23 10:44 Source: patient, EMS, RN notes reviewed and old records reviewed Mode of arrival: EMS Limitations: physical limitation History of Present Illness HPI narrative: 47-year-old female with a PMHx of polysubstance abuse, COPD, and osteomyelitis of thoracic spine s/p C5-T4 fusion and T1-T2 laminectomies on 02/12/2023 presenting to the ED for hot flashes and suspected surgical wound infection/dehiscence s/p suture removal 4 days ago. Reports she med compliance and she has finish her outpatient antibiotic regimen. Reports she is feeling well until this morning when she had 1 episode of vomiting which she believes opened her wound. States she does not want to stay in the hospital. Denies fever, chills, diarrhea/constipation, headache, dizziness, lightheadedness, SOB, chest pain, numbness or tingling, or neck and back stiffness. Onset (ago): hour(s) Location: back Radiation: non-radiation Quality: aching Pain Consistency: constant Associated symptoms: denies other symptoms Related Data Previous Rx's Medication Instructions Recorded cephalexin 500 mg capsule 500 mg PO Q8H #21 caps 01/22/23 doxycycline hyclate 100 mg capsule 100 mg PO BID #20 caps 01/22/23 ferrous sulfate 324 mg (65 mg 324 mg PO BIDWM #60 tabs 01/22/23 iron) tablet,delayed release folic acid 1 mg tablet 1 mg PO DAILY #30 tabs 01/22/23 cephalexin 500 mg capsule 500 mg PO QID 7 days #28 caps 03/10/23 doxycycline hyclate 100 mg tablet 100 mg PO BID 7 days #14 tabs 03/10/23 Allergies Allergy/AdvReac Type Severity Reaction Status Date / Time codeine [Codeine] Allergy Intermediate ITCHING, Verified 03/02/23 15:03 VOMTING, THROAT SWELLS tramadol [TRAMADOL] Allergy Intermediate BODY Verified 03/02/23 15:03 SWELLING Review of Systems Review of Systems: Constitutional: No Fever, + Chills ENT/Mouth: No Nasal Congestion, No Hoarseness, No Rhinorrhea, No Swallowing Difficulty Cardiovascular: No Chest Pain, No SOB Respiratory: No Cough, No Sputum, No Wheezing Gastrointestinal: + Nausea, + Vomiting (resolved), No Diarrhea, No Constipation, No Abdominal pain Genitourinary: No Dysuria, No Urinary Frequency, No Hematuria, No Flank Pain Musculoskeletal: No joint pain, No Myalgias, No Joint Swelling Skin: + Skin Lesions, No rash Neuro: No Weakness, No Numbness, No Paresthesias Yes all other systems are reviewed and are negative Constitutional: Constitutional: Reports as per [facility] Past Medical History Attestation statement: The following information was validated with the patient. Medical History Asthma Drug abuse in remission Polysubstance (including opioids) dependence, daily use Social History Social History Alcohol intake: never Patient Tobacco Use Status: Current everyday Tobacco user Smoked in Last 30 Days: Yes Use of substances other than those prescribed or required for medical reasons: No Substance Use Type: Heroin Advance Directives: No Advance Directives Information Provided: Yes Physical Exam ED Vital Signs: Vital Signs - 24 hr 03/10/23 09:24 Temperature 98.0 F Pulse Rate 61 Respiratory Rate 16 Blood Pressure 130/65 Pulse Oximetry 99 Oxygen Delivery Method Room Air BMI result Body Mass Index 18.6 Const General: cooperative, healthy appearing and no acute distress Nutritional Appearance: thin Orientation/consciousness: patient oriented x3 Limitations: physical limitations HENMT Head: Yes normal to inspection and Yes atraumatic Ears: hearing grossly normal bilaterally General nose exam: Normal external nose present Face and sinus: Yes normal facial exam Eyes General: appearance normal, both eyes and all related structures EOM: EOMs intact bilaterally Neck Neck: Yes normal visual inspection and Yes no meningeal signs Resp Effort & Inspection: normal respiratory effort, able to speak in complete sentences and no respiratory distress Auscultation: clear to auscultation bilaterally Cardio Rate: regular rate Rhythm: regular rhythm Heart sounds: S1 normal heart sound present and S2 normal heart sound present GI Inspection: Yes normal to inspection Palpation (GI): Soft to palpation, nontender, no guarding and not rigid Back/Spine/Pelvis Other: Please refer to imaging as above. 5 cm wound dehiscence with mild surrounding erythema, scab & granulation tissue. No pus drainage, no induration/fluctuance. No warmth/active bleeding. Nontender Back: erythema and No warmth Cervical Spine: normal cervical lordosis Thoracic/Lumbar Spine: thoracic and lumbar spine normal to inspection Skin Other: Multiple track garcia noted to bilateral upper extremity. Rashes: no rashes Neuro Other: Unable to move bilateral lower extremities. General: patient oriented x3, tone normal, no meningeal signs and Unable to assess gait Cognition (Neuro): normal cognition Gait exam (Neuro): Unable to assess gait Extrem General: Yes normal to inspection Course Course Course Narrative: -1246--no leukocytosis. H&H at patient's baseline -ESR chronically elevated, slightly improved from prior. CRP elevated improved from prior Medical Decision Making Medical Decision Making MDM Narrative: 47-year-old female with a PMHx of polysubstance abuse, COPD, and osteomyelitis of thoracic spine s/p C5-T4 fusion and T1-T2 laminectomies on 02/12/2023 presenting to the ED for hot flashes and suspected surgical wound infection/dehiscence s/p suture removal 4 days ago. On physical exam, vital signs stable, 5cm of wound dehiscences noted to the midcervical spine with mild surrounding erythema, scab & granulation tissue, please refer to images above. No induration/fluctuance/pus or warmth, no crepitus noted to the area. Concern for wound dehiscence/infection. Less concern for sepsis, spinal abscess, or cellulitis. Patient already requesting to be discharged, states will leave AMA. After conversation is agreeable only to lab work. Patient is awake and alert, A&O x3, competent to make her own decisions Steri-Strips applied to wound Had lengthy discussion with patient risks of leaving including paralysis, permanent disability, sepsis, increased pain and Plan: Labs, p.o. antibiotics, AMA, encouraged close follow-up with her doctor. Patient is always welcome to return Please refer to course for remaining clinical decision making, interpretation of labs/imaging results, and discussions with consultants and/or family members. Differential Diagnosis Differential Diagnoses: The differential diagnosis associated with the presentation includes As above Admission/Observation Consideration of admission/observation: Escalation of care including admission/observation considered Lab Data MDM Lab Attestation statement: I reviewed the patient's lab results. 03/10/23 12:22 03/10/23 12:22 Labs: Lab Results 03/10/23 03/10/23 03/10/23 Range/Units 12:22 12:22 12:22 WBC 10.6 (4.8-10.8) X10*3/uL RBC 3.67 L (4.20-5.50) X10*6/uL Hgb 8.3 L (12.0-16.0) g/dl Hct 29.4 L (37.0-47.0) % MCV 80.1 (80.0-98.0) fL MCH 22.6 L (27.0-33.0) pg MCHC 28.2 L (31.0-35.0) g/dl RDW 18.2 H (11.0-16.0) % Plt Count 666 H D (160-400) X10*3/uL MPV 9.2 L (9.4-12.3) fL Immature Gran % (Auto) 0.4 (0.0-0.4) % Neut % (Auto) 76.8 H (45-73) % Lymph % (Auto) 15.8 L (20-40) % [place] % (Auto) 3.9 (2-11) % Eos % (Auto) 2.5 (0-4) % Baso % (Auto) 0.6 (0-2) % Lymph # (Auto) 1.7 (1.2-4.9) X10*3/uL [place] # (Auto) 0.4 (0.1-1.2) X10*3/uL Eos # (Auto) 0.3 (0.0-0.4) X10*3/uL Baso # (Auto) 0.1 (0.0-0.2) X10*3/uL Abs Immat Gran (auto) 0.04 H (0.00-0.03) X10*3/uL Absolute Neuts (auto) 8.2 (2.0-8.3) x10*3/uL Absolute Nucleated RBC 0.000 (0.0-0.012) X10*3/uL Nucleated RBC % (auto) 0.0 (0.0-0.2) /100WBC ESR 104 H (0-20) MM/HR Sodium 141 (135-145) mmol/L Potassium 3.7 (3.3-5.1) mmol/L Chloride 102 (96-108) mmol/L Carbon Dioxide 29 (22-29) mmol/L Anion Gap 14 (12-20) BUN 12 (9-16) mg/dL Creatinine 0.66 (0.5-1.4) mg/dL Estim Creat Clear Calc 78.4 Estimated GFR > 60 Random Glucose 88 (60-115) mg/dL Lactic Acid (0.5-2.0) mmol/L Calcium 8.4 (8.4-10.2) mg/dL C-Reactive Protein 11.07 H (< or = 0.50) mg/dL 03/10/23 Range/Units 12:22 WBC (4.8-10.8) X10*3/uL RBC (4.20-5.50) X10*6/uL Hgb (12.0-16.0) g/dl Hct (37.0-47.0) % MCV (80.0-98.0) fL MCH (27.0-33.0) pg MCHC (31.0-35.0) g/dl RDW (11.0-16.0) % Plt Count (160-400) X10*3/uL MPV (9.4-12.3) fL Immature Gran % (Auto) (0.0-0.4) % Neut % (Auto) (45-73) % Lymph % (Auto) (20-40) % [place] % (Auto) (2-11) % Eos % (Auto) (0-4) % Baso % (Auto) (0-2) % Lymph # (Auto) (1.2-4.9) X10*3/uL [place] # (Auto) (0.1-1.2) X10*3/uL Eos # (Auto) (0.0-0.4) X10*3/uL Baso # (Auto) (0.0-0.2) X10*3/uL Abs Immat Gran (auto) (0.00-0.03) X10*3/uL Absolute Neuts (auto) (2.0-8.3) x10*3/uL Absolute Nucleated RBC (0.0-0.012) X10*3/uL Nucleated RBC % (auto) (0.0-0.2) /100WBC ESR (0-20) MM/HR Sodium (135-145) mmol/L Potassium (3.3-5.1) mmol/L Chloride (96-108) mmol/L Carbon Dioxide (22-29) mmol/L Anion Gap (12-20) BUN (9-16) mg/dL Creatinine (0.5-1.4) mg/dL Estim Creat Clear Calc Estimated GFR Random Glucose (60-115) mg/dL Lactic Acid 1.5 (0.5-2.0) mmol/L Calcium (8.4-10.2) mg/dL C-Reactive Protein (< or = 0.50) mg/dL Radiology Impression Discussion of test interpretation with radiology: I have reviewed the radiologist's reading. External Record Review External record reviewed: Inpatient record, Office record, Outpatient record, Prior outpatient labs, Prior outpatient radiology, Primary care record and Outside ED record Discharge Plan Discharge Clinical Impression: Dehiscence of wound Patient Disposition: Left Against Medical Advice Instructions: Wound Dehiscence (ED) Additional Instructions: Your wound is . We applied Steri-Strips, they will follow up on their own, avoid picking at them or getting them wet. YOU NEED TO FOLLOW-UP WITH YOUR SURGEON. CALL TODAY TO MAKE AN APPOINTMENT Keflex and Doxycycline are antibiotic please take as prescribed If area worsens, he developed increasing redness, drainage from area, fever or increasing pain return to the ED Your signing out against medical advice, you are always welcome to return to the emergency department. Leaving against medical advice could bring upon , permanent disability, paralysis, etc Prescriptions: New cephalexin 500 mg capsule 500 mg PO QID 7 Days Qty: 28 0RF doxycycline hyclate 100 mg tablet 100 mg PO BID 7 Days Qty: 14 0RF No Action doxycycline hyclate 100 mg capsule 100 mg PO BID Qty: 20 0RF cephalexin 500 mg capsule 500 mg PO Q8H Qty: 21 0RF folic acid 1 mg Tablet 1 mg PO DAILY Qty: 30 0RF ferrous sulfate 324 mg (65 mg iron) Tablet,Delayed Release (Dr/Ec) 324 mg PO BIDWM Qty: 60 0RF Referrals: [facility] [Primary Care Provider] - 1 day Stand Alone Forms: Against Medical Advice
[2023-03-10 12:32] LABS: MANUAL DIFF FLAG NO
[2023-03-10 12:35] LABS: Basophils Absolute Auto 0.1 X10*3/uL (0.0-0.2); Basophils Percent Auto 0.6 % (0-2); Eosinophils Absolute Auto 0.3 X10*3/uL (0.0-0.4); Eosinophils Percent Auto 2.5 % (0-4); Hematocrit 29.4 % (37.0-47.0); Hemoglobin 8.3 g/dl (12.0-16.0); Imm Gran Abs Auto 0.04 X10*3/uL (0.00-0.03); Imm Gran Pct Auto 0.4 % (0.0-0.4); Lymphocytes Absolute Auto 1.7 X10*3/uL (1.2-4.9); Lymphocytes Percent Auto 15.8 % (20-40); Mean Corpuscular HGB Conc 28.2 g/dl (31.0-35.0); Mean Corpuscular Hemoglobin 22.6 pg (27.0-33.0); Mean Corpuscular Volume 80.1 fL (80.0-98.0); Mean Platelet Volume 9.2 fL (9.4-12.3); Monocytes Absolute Auto 0.4 X10*3/uL (0.1-1.2); Monocytes Percent Auto 3.9 % (2-11); Neutrophils Absolute Auto 8.2 x10*3/uL (2.0-8.3); Neutrophils Percent Auto 76.8 % (45-73); Platelet Count 666 X10*3/uL (160-400); Red Blood Count 3.67 X10*6/uL (4.20-5.50); Red Cell Distribution Width 18.2 % (11.0-16.0); White Blood Count 10.6 X10*3/uL (4.8-10.8)
--- NOTE | 2023-03-10 12:43 | PC.NURSE ---
pt asking to leave ama, pt unable to obtain ride. educated about protocol regarding leaving against medical advice and inability to provide medical transport in that case. pt on phone with family tearful.
[2023-03-10 12:46] LABS: Lactic Acid 1.5 mmol/L (0.5-2.0)
[2023-03-10 12:52] LABS: Anion Gap 14 (12-20); Blood Urea Nitrogen 12 mg/dL (9-16); C Reactive Protein 11.07 mg/dL (< or = 0.50); Calcium 8.4 mg/dL (8.4-10.2); Carbon Dioxide 29 mmol/L (22-29); Chloride 102 mmol/L (96-108); Creatinine Clr Calc Pharmacy 78.4; Estimated Glomerular Filt Rate > 60; Glucose Random 88 mg/dL (60-115); Potassium 3.7 mmol/L (3.3-5.1); Sodium 141 mmol/L (135-145)
[2023-03-10 13:23] LABS: Erythrocyte Sedimentation Rate 104 MM/HR (0-20)
--- NOTE | 2023-03-10 14:12 | PC.NURSE ---
pt continuing to shout out, wanting to go home. educated pt is waiting for transport home.
--- NOTE | 2023-03-10 17:47 | PC.NURSE ---
ems here to transport pt home. ems consulting with supervisors about safety of pt leaving hospital to return home. pt is alert and oriented x4, denies any new pain, no signs of distress. expresses desire to return home and not stay in hospital. furnace charger leaving note with shelter case manager to contact pt tomorrow morning.
== END 2023-03-10 17:53 | disposition left against medical advice (07) ==
PROVIDERS: Physician Assistant; Emergency Provider Emergency Medicine
DX: T81.31XA Disruption of external operation (surgical) wound, not elsewhere classified, initial encounter (principal); Y83.8 Other surgical procedures as the cause of abnormal reaction of the patient, or of later complication, without mention of misadventure at the time of the procedure; Y82.8 Other medical devices associated with adverse incidents; Y92.9 Unspecified place or not applicable; F19.10 Other psychoactive substance abuse, uncomplicated; F17.200 Nicotine dependence, unspecified, uncomplicated; R63.6 Underweight; Z68.1 Body mass index [BMI] 19.9 or less, adult; Z79.899 Other long term (current) drug therapy
CPT/HCPCS: 36415; 80048; 83605; 85025; 85652; 86140; 87040; 87077; 87147; 87186; 87205; 99283; 99284

== ENCOUNTER 2023-03-25 17:29 | Emergency (ER) | payer MEDICAID, SELFPAY ==
--- NOTE | ~2023-03-25 | CT_ITS ---
EXAMINATION: CT HEAD WITHOUT CONTRAST CT CERVICAL SPINE WITHOUT CONTRAST CT THORACIC SPINE WITHOUT CONTRAST CLINICAL INFORMATION: Fall. Headache. Neck and thoracic spine pain. Recent neck surgery. Reason cervicothoracic infection. COMPARISON: CT head from 03/25/2023. TECHNIQUE: Contiguous axial imaging was performed from the skull base to vertex without intravenous administration of contrast. Contiguous axial imaging was performed from the upper chest through the skull base without intravenous administration of contrast. Additional CT imaging of the thoracic spine was obtained without intravenous contrast. Coronal and sagittal reformats were obtained at the acquisition workstation. This CT examination was performed using dose optimization techniques as appropriate, variously including the following: *Automated exposure control. *Adjustment of mA and/or kV according to patient size (this includes techniques or standardized protocols for targeted exams where dose is matched to indication/reason for exam; i.e. extremities or head). *Use of iterative reconstruction technique. DLP: 1013 mGy-cm FINDINGS: Head: There is no evidence of acute intracranial hemorrhage or edematous territorial infarction. Steele-white matter differentiation is preserved. Few foci of hypoattenuation in the periventricular and deep white matter most commonly seen with mild microangiopathy. Proportional prominence of the ventricles and sulcal spaces without evidence of obstructive hydrocephalus. No abnormal mass effect or midline shift. No extra-axial fluid collections. No acute soft tissue or osseous abnormalities. Mild mucosal thickening of the paranasal sinuses. The mastoid air cells and middle ear cavities are clear. Cervical Spine: Instrumented posterior fusion of C5-T4 with bilateral C5, C6, T3, and T4 screws. The cervical C5 and C6 screws are displaced posteriorly from their intended lateral masses with residual phantom screw holes. There is a mildly displaced fracture of the right C7 facet. No demonstrated additional cervical spine fracture. The atlantooccipital and atlantoaxial articulations remain well aligned. There remains anatomic alignment of the cervical vertebral bodies and posterior elements. he cervical vertebral body heights are maintained. Moderate degenerative disc disease from C5-T1. Mild prevertebral soft tissue edema. Extensive soft tissue edema in the recent postoperative setting of the posterior neck. No definitively demonstrated discrete drainable fluid collection. The thyroid gland and remaining cervical soft tissues are within normal limits. Thoracic Spine: As noted above, there is instrumented posterior fusion of C5-T4. Although the C5-C6 lateral mass screws are significantly displaced, the T3 and T4 interpedicular screws appear to remain well aligned. There is sclerotic vertebra plana deformity of the T1 and T2 vertebral bodies with 0.5 cm retropulsion of the posterior body josue. Changes of T1-T2 laminectomies. There is sclerotic change along the superior endplate of T3 with 20% loss of central body height. Age-indeterminate fractures of the medial aspects of the left 1st and 2nd ribs. Mild right convex curvature of the thoracic spine. Otherwise, normal anatomic alignment of the thoracic spine. No evidence of additional acute fracture of the thoracic spine. The remaining vertebral body heights are maintained. Mild multilevel degenerative loss of intervertebral disc height. No additional suspicious lytic or sclerotic osseous lesions. There is prominent prevertebral/lateral paravertebral soft tissue edema from T1-T5. No definitively demonstrated discrete drainable fluid collection. Mild irregular consolidation within the medial aspects of the bilateral lung apices. Otherwise, limited evaluation of the intrathoracic structures without significant abnormalities. The descending thoracic aorta is of normal contour and caliber with mild calcific atherosclerotic disease. CT/CT cervical spine wo IV con IMPRESSION: 1. Instrumented posterior fusion of C5-T4. The C5-C6 lateral mass screws are significantly displaced posteriorly from there are intended lateral masses with residual phantom screw holes. The T3 and T4 interpedicular screws remain in place. 2. Sclerotic vertebra plana deformity of the T1 and T2 vertebral bodies with 0.5 cm retropulsion of the posterior body josue. Sclerotic change along the superior endplate of T3 with 20% loss of central body height. 3. There is prominent prevertebral/lateral paravertebral soft tissue edema from T1-T5. No definitively demonstrated discrete drainable fluid collection. 4. Age-indeterminate fractures of the right C7 facet and medial aspects of the left 1st and 2nd ribs. 5. No evidence of acute intracranial hemorrhage or edematous territorial infarction. This critical result was discussed with Dr. Brooke at 22:48 on 03/25/2023 and it was ascertained that the content and urgency of the report was understood at the time of direct communication.
[2023-03-25 17:58] VITALS: BP 110/70; BP 113/76; PULSE 76; PULSE 88; RESP 18; TEMP 36.9; O2SAT 96; O2SAT 98; BMI 22.0
--- NOTE | 2023-03-25 19:25 | ED_ITS ---
HPI - Back Pain/Injury General Chief Complaint: Back Pain/Injury Stated Complaint: bone surgery Time Seen by Provider: 03/25/23 18:57 History of Present Illness HPI Narrative: 47-year-old female who presents emergency department for evaluation of neck and thoracic back pain. In reviewing her previous 2 emergency department visits . The following was obtained from the patient's 03/02/2023 the visit : Patient was initially seen at [facility] on 01/30/2023 for epidural abscess and left against medical advice. She returned to [facility] on 02/06/2023. On 02/12/2023 she had C5 to T4 osteomyelitis with a T1-T2 laminectomy. She had MRSA bacteremia. 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 Her diagnosis on discharge was paraplegia with complete impaired mobility and limited ability to perform ADLs, neurogenic bladder On 03/10/2023 she was seen for hot flashes and possible surgical wound infection with dehiscence that occurred 4 days prior after the sutures removed from her surgical incision sites. She states that 3 days prior to evaluation she was in her wheelchair and fell backwards injuring her head, neck and upper back. Since that time she has had constant pain in these areas. She had subjective fever and chills. She states that she is continuing to inject 20 bags of heroin per day. She states that her apartment is condemned that she made this claim previously on 03/02/2023. She is currently complaining of 10/10 pain Related Data Previous Rx's Medication Instructions Recorded cephalexin 500 mg capsule 500 mg PO Q8H #21 caps 01/22/23 doxycycline hyclate 100 mg capsule 100 mg PO BID #20 caps 01/22/23 ferrous sulfate 324 mg (65 mg 324 mg PO BIDWM #60 tabs 01/22/23 iron) tablet,delayed release folic acid 1 mg tablet 1 mg PO DAILY #30 tabs 01/22/23 cephalexin 500 mg capsule 500 mg PO QID 7 days #28 caps 03/10/23 doxycycline hyclate 100 mg tablet 100 mg PO BID 7 days #14 tabs 03/10/23 Allergies Allergy/AdvReac Type Severity Reaction Status Date / Time codeine [Codeine] Allergy Intermediate ITCHING, Verified 03/02/23 15:03 VOMTING, THROAT SWELLS tramadol [TRAMADOL] Allergy Intermediate BODY Verified 03/02/23 15:03 SWELLING Review of Systems Review of Systems: Yes all other systems are reviewed and are negative [facility] Past Medical History [facility] Narrative: Past medical history: Polysubstance use with daily injection opiate use, COPD, osteomyelitis C5-T4 with fusion T1-T2 laminectomy with spinal cord involvement and paraplegia. Social history: She states that her apartment is condemned. She does smoke cigarettes she denies alcohol use. She injects 20 bags of heroin per day. Medical History Asthma Drug abuse in remission Polysubstance (including opioids) dependence, daily use Social History Social History Alcohol intake: never Patient Tobacco Use Status: Current everyday Tobacco user Substance Use Type: Heroin Advance Directives: No Advance Directives Information Provided: No Physical Exam Vital Signs: Vital Signs: Last Vital Signs Temp 98.6 F 03/25/23 20:15 Pulse 63 03/25/23 20:15 Resp 18 03/25/23 20:15 BP 130/84 03/25/23 20:15 Pulse Ox 95 03/25/23 20:15 O2 Del Method Room Air 03/25/23 20:15 BMI result Body Mass Index 22.0 Vital signs were normal General: Patient somnolent, does answer questions appropriately, patient is cachectic HEENT: Pupils are pinpoint, head is normal cephalic atraumatic, mouth revealed moist membranes Neck: Patient does have tenderness palpation of her C-spine, she has a surgical scar which is dehisced at the lower 3rd of the wound site. There does not appear to be significant erythema or increased warmth, there is no purulent material noted and there does appear to be granulation tissue. There does of appear to be improvement compared to the previous images in record. Heart:: Regular rate rhythm, no S1-S2, no murmurs rubs or gallops Lungs: Clear to auscultation breath sounds symmetric bilateral Abdomen: Soft, nontender, nondistended, normoactive bowel sounds Extremities: Patient has multiple track wounds on both arms, lower extremities are paralyzed secondary to her paraplegia Neuro: Consistent with paraplegia Medications Administered Discontinued Medications Generic Name Dose Route Start Last Admin Trade Name Freq PRN Reason Stop Dose Admin Oxycodone HCl 10 mg 03/25/23 19:24 03/25/23 20:06 Oxycodone Hcl Immed Release 5 Mg Tablet PO 03/25/23 19:25 10 mg ONCE ONE Administration Medical Decision Making Medical Decision Making [facility] Narrative: 47-year-old female with paraplegia secondary to spinal abscess/osteomyelitis C5 through T4 status post laminectomy 02/12/2023 who presents emergency department for evaluation of increased pain in her neck and upper back after falling out of her wheelchair 3 days prior. Patient had dehiscence of the lower 3rd of her surgical wound which was infected however the wound appears to have improved compared to previous images in the medical record. Patient does have a history of injection drug use and continues to use 20 bags of heroin per day. She did complain of fever and chills. Her vital signs here in the emergency department were unremarkable. Her exam was consistent with her paraplegia otherwise unremarkable. I ordered a CBC, CMP, lipase, CK, ESR, CRP, lactic acid, PT/INR, urinalysis, urine drug screen, blood cultures x2. CT scan of the patient's head, cervical spine and thoracic spine without IV contrast will be obtained. Nursing staff and ED techs were unable to establish IV access or draw blood from the patient. I did draw blood from the patient from her left brachial in the antecubital fossa using a butterfly needle. 2110: My interpretation patient's laboratory evaluation is as follows: WBC elevated 11,800 with normal differential. In the with H&H of 8.8 and 30.3-this is chronic. Platelet count is elevated 557,000-this is chronic. Bicarb elevated 31. CK elevated 378. CRP elevated 14.41. Lactic acid was normal at 1.0. ESR 100 unchanged. 5: At the end of my shift, the patient is resting comfortably after receiving oxycodone 10 mg orally. The patient's CT scan of the head, cervical spine and thoracic spine are pending. The patient's care will be turned over to my colleague, Dr. Powers. Differential Diagnosis Differential diagnosis includes was not limited cervical fracture, vertebral fracture, paraspinal abscess, musculoskeletal injury, wound dehiscence/infection Admission/Observation Consideration of admission/observation: Escalation of care including adm ission/observation considered Lab Data [facility] Lab Attestation statement: I reviewed the patient's lab results. See MDM 03/25/23 20:28 03/25/23 20:28 Labs: Lab Results 03/25/23 03/25/23 03/25/23 Range/Units 20:28 20:28 20:28 WBC 11.8 H (4.8-10.8) X10*3/uL RBC 3.88 L (4.20-5.50) X10*6/uL Hgb 8.8 L (12.0-16.0) g/dl Hct 30.3 L (37.0-47.0) % MCV 78.1 L (80.0-98.0) fL MCH 22.7 L (27.0-33.0) pg MCHC 29.0 L (31.0-35.0) g/dl RDW 18.1 H (11.0-16.0) % Plt Count 557 H (160-400) X10*3/uL MPV 9.8 (9.4-12.3) fL Immature Gran % (Auto) 0.5 H (0.0-0.4) % Neut % (Auto) 70.8 (45-73) % Lymph % (Auto) 21.4 (20-40) % [place] % (Auto) 5.7 (2-11) % Eos % (Auto) 1.3 (0-4) % Baso % (Auto) 0.3 (0-2) % Lymph # (Auto) 2.5 (1.2-4.9) X10*3/uL [place] # (Auto) 0.7 (0.1-1.2) X10*3/uL Eos # (Auto) 0.2 (0.0-0.4) X10*3/uL Baso # (Auto) 0.0 (0.0-0.2) X10*3/uL Abs Immat Gran (auto) 0.06 H (0.00-0.03) X10*3/uL Absolute Neuts (auto) 8.4 H (2.0-8.3) x10*3/uL Absolute Nucleated RBC 0.000 (0.0-0.012) X10*3/uL Nucleated RBC % (auto) 0.0 (0.0-0.2) /100WBC ESR PT 13.1 (10.0-13.1) SEC INR 1.1 (0.9-1.1) APTT 25.4 L (26.0-36.4) SEC Sodium 137 (135-145) mmol/L Potassium 4.0 (3.3-5.1) mmol/L Chloride 100 (96-108) mmol/L Carbon Dioxide 31 H (22-29) mmol/L Anion Gap 10 L (12-20) BUN 10 (9-16) mg/dL Creatinine 0.62 (0.5-1.4) mg/dL Estim Creat Clear Calc 79.6 Estimated GFR > 60 Random Glucose 106 (60-115) mg/dL Lactic Acid (0.5-2.0) mmol/L Calcium 8.8 (8.4-10.2) mg/dL Total Bilirubin 0.3 (0.0-1.0) mg/dL AST 13 (5-31) U/L ALT 5 (0-31) U/L Alkaline Phosphatase 93 (39-117) U/L Total Creatine Kinase 378 H (26-140) U/L C-Reactive Protein 14.41 H (< or = 0.50) mg/dL Total Protein 8.1 H (6.5-8.0) g/dL Albumin 2.9 L (3.5-5.0) g/dL Lipase 14 (8-78) U/L 03/25/23 03/25/23 03/25/23 Range/Units 20:28 20:28 20:28 WBC (4.8-10.8) X10*3/uL RBC (4.20-5.50) X10*6/uL Hgb (12.0-16.0) g/dl Hct (37.0-47.0) % MCV (80.0-98.0) fL MCH (27.0-33.0) pg MCHC (31.0-35.0) g/dl RDW (11.0-16.0) % Plt Count (160-400) X10*3/uL MPV (9.4-12.3) fL Immature Gran % (Auto) (0.0-0.4) % Neut % (Auto) (45-73) % Lymph % (Auto) (20-40) % [place] % (Auto) (2-11) % Eos % (Auto) (0-4) % Baso % (Auto) (0-2) % Lymph # (Auto) (1.2-4.9) X10*3/uL [place] # (Auto) (0.1-1.2) X10*3/uL Eos # (Auto) (0.0-0.4) X10*3/uL Baso # (Auto) (0.0-0.2) X10*3/uL Abs Immat Gran (auto) (0.00-0.03) X10*3/uL Absolute Neuts (auto) (2.0-8.3) x10*3/uL Absolute Nucleated RBC (0.0-0.012) X10*3/uL Nucleated RBC % (auto) (0.0-0.2) /100WBC ESR Cancelled 100 H PT (10.0-13.1) SEC INR (0.9-1.1) APTT (26.0-36.4) SEC Sodium (135-145) mmol/L Potassium (3.3-5.1) mmol/L Chloride (96-108) mmol/L Carbon Dioxide (22-29) mmol/L Anion Gap (12-20) BUN (9-16) mg/dL Creatinine (0.5-1.4) mg/dL Estim Creat Clear Calc Estimated GFR Random Glucose (60-115) mg/dL Lactic Acid 1.0 (0.5-2.0) mmol/L Calcium (8.4-10.2) mg/dL Total Bilirubin (0.0-1.0) mg/dL AST (5-31) U/L ALT (0-31) U/L Alkaline Phosphatase (39-117) U/L Total Creatine Kinase (26-140) U/L C-Reactive Protein (< or = 0.50) mg/dL Total Protein (6.5-8.0) g/dL Albumin (3.5-5.0) g/dL Lipase (8-78) U/L Social Determinants Patient?s care significantly limited by Social Determinants of Health including: Inadequate housing Injection drug use Discharge Plan Discharge Clinical Impression: Acute neck pain, Acute thoracic back pain Fall Qualifiers: Encounter type: initial encounter Qualified Code(s): W19.XXXA - Unspecified fa ll, initial encounter Dehiscence of external surgical wound Qualifiers: Encounter type: subsequent encounter Qualified Code(s): T81.31XD - Disruption of external operation (surgical) wound, not elsewhere classified, subsequent encounter Patient Disposition: Still a Patient Prescriptions: No Action doxycycline hyclate 100 mg capsule 100 mg PO BID Qty: 20 0RF cephalexin 500 mg capsule 500 mg PO Q8H Qty: 21 0RF folic acid 1 mg Tablet 1 mg PO DAILY Qty: 30 0RF ferrous sulfate 324 mg (65 mg iron) Tablet,Delayed Release (Dr/Ec) 324 mg PO BIDWM Qty: 60 0RF cephalexin 500 mg capsule 500 mg PO QID 7 Days Qty: 28 0RF doxycycline hyclate 100 mg tablet 100 mg PO BID 7 Days Qty: 14 0RF
[2023-03-25] MEDS: oxyCODONE HCl Immed Release 5 MG TABLET 10 MG PO (20:06)
[2023-03-25 20:15] VITALS: BP 130/84; PULSE 63; RESP 18; TEMP 37; O2SAT 95
[2023-03-25 20:36] LABS: MANUAL DIFF FLAG NO
--- NOTE | 2023-03-25 20:42 | MHC.EDTECH ---
This tech assumed care of pt at 1900, Vitals taken ,Labs drawn, due to an extremely difficulty draw,Mendy Frank said to wait on blood cultures at this time and await for lactic result. RN aware of plan
[2023-03-25 20:43] LABS: Basophils Percent Auto 0.3 % (0-2); Eosinophils Absolute Auto 0.2 X10*3/uL (0.0-0.4); Eosinophils Percent Auto 1.3 % (0-4); Hematocrit 30.3 % (37.0-47.0); Hemoglobin 8.8 g/dl (12.0-16.0); Imm Gran Abs Auto 0.06 X10*3/uL (0.00-0.03); Imm Gran Pct Auto 0.5 % (0.0-0.4); Lymphocytes Absolute Auto 2.5 X10*3/uL (1.2-4.9); Lymphocytes Percent Auto 21.4 % (20-40); Mean Corpuscular Hemoglobin 22.7 pg (27.0-33.0); Mean Corpuscular Volume 78.1 fL (80.0-98.0); Mean Platelet Volume 9.8 fL (9.4-12.3); Monocytes Absolute Auto 0.7 X10*3/uL (0.1-1.2); Monocytes Percent Auto 5.7 % (2-11); Neutrophils Absolute Auto 8.4 x10*3/uL (2.0-8.3); Neutrophils Percent Auto 70.8 % (45-73); Platelet Count 557 X10*3/uL (160-400); Red Blood Count 3.88 X10*6/uL (4.20-5.50); Red Cell Distribution Width 18.1 % (11.0-16.0); White Blood Count 11.8 X10*3/uL (4.8-10.8)
--- NOTE | 2023-03-25 20:44 | MHC.EDTECH ---
Attempted to get UA Patient stated I cant go at this time,Will attempt again.RN aware
[2023-03-25 20:54] LABS: Alanine Aminotransferase 5 U/L (0-31); Albumin Level 2.9 g/dL (3.5-5.0); Alkaline Phosphatase 93 U/L (39-117); Anion Gap 10 (12-20); Aspartate Amino Transferase 13 U/L (5-31); Bilirubin Total 0.3 mg/dL (0.0-1.0); Blood Urea Nitrogen 10 mg/dL (9-16); C Reactive Protein 14.41 mg/dL (< or = 0.50); Calcium 8.8 mg/dL (8.4-10.2); Carbon Dioxide 31 mmol/L (22-29); Chloride 100 mmol/L (96-108); Creatinine Clr Calc Pharmacy 79.6; Estimated Glomerular Filt Rate > 60; Glucose Random 106 mg/dL (60-115); Lipase 14 U/L (8-78); Sodium 137 mmol/L (135-145); Total Protein 8.1 g/dL (6.5-8.0)
[2023-03-25 21:16] LABS: INTERNATIONAL NORM RATIO 1.1 (0.9-1.1); Prothrombin Time 13.1 SEC (10.0-13.1)
[2023-03-25 21:18] LABS: Partial Thromboplastin Time 25.4 SEC (26.0-36.4)
[2023-03-25 21:43] LABS: Erythrocyte Sedimentation Rate 100 MM/HR (0-20)
[2023-03-25 22:15] VITALS: BP 124/73; PULSE 69; RESP 18; TEMP 36.6; O2SAT 96
--- NOTE | 2023-03-25 23:27 | MHC.EDTECH ---
Vitals obtained at 2215,patient is resting at this time,Attempted to get UA, Patient said NO I don't have to go.RN aware. Patient is possibly being transferred
[2023-03-26 00:05] VITALS: BP 119/71; PULSE 76; RESP 18; TEMP 37.8; O2SAT 94
--- NOTE | 2023-03-26 00:54 | MHC.EDTECH ---
Call out to [facility] transfer line @[phone] spoke to Wanda regarding an update on transfer. Issues with images on [facility]. [facility] will call back with update.
--- NOTE | 2023-03-26 01:26 | MHC.EDTECH ---
Call from Mirna ([facility] transfer line) @[phone] to inform us that patient is not being accepted at the moment Neurology PA will pass it on to attending in the morning.
--- NOTE | 2023-03-26 01:56 | PC.NURSE ---
Pt A&Ox4, reports 10/10 neck and back pain, Pt refusing C-collar placement, Dr. Vargas notified and at bedside. Pt reassured and agreed for collar to be placed. Pt states I'm dope sick, I haven't used in in two days. I haven't been able to get a ride to get my methadone , Dr. Vargas aware, new orders given.
[2023-03-26 02:10] LABS: COVID-19 Test Negative (Negative); IDNOW Serial# BCCEAD1C
[2023-03-26 02:18] VITALS: BP 112/69; PULSE 77; RESP 16; TEMP 37.4; O2SAT 93
--- NOTE | 2023-03-26 06:05 | PC.NURSE ---
Pt appears to be sleeping, no apparent distress, RR 16. Will CTM.
[2023-03-26 06:26] VITALS: BP 118/88; PULSE 101; RESP 18; TEMP 37.6; O2SAT 96
--- NOTE | 2023-03-26 06:27 | PC.NURSE ---
Pt took c-collar off states I have to take this off for a little bit so I can breathe and I am in a lot of pain . Dr. Vargas notified.
[2023-03-26] MEDS: oxyCODONE HCl Immed Release 5 MG TABLET 10 MG PO ×2 (06:49→10:32)
--- NOTE | 2023-03-26 11:07 | PC.NURSE ---
per provider, pt is accepted to [facility] medicine r/t previous sx hx at [facility], awaiting bed assignment and transport coordination. pt has been medicated for pain multiple times, pt remains shouting out nurse doctor help me, i need my legs straightened! . pt redirected to use call garcia rather than shouting loudly in ed. pt making phonecalls to family members attempting to have them give pt ride home and to leave ama. per pt, family members reluctant to take pt out of hospital at this time.
== END 2023-03-26 12:45 | disposition short-term general hospital (02) ==
PROVIDERS: Emergency Medicine Emergency Medical Services; Emergency Provider Internal Medicine
DX: M54.2 Cervicalgia (principal); M54.6 Pain in thoracic spine; R51.9 Headache, unspecified; F17.200 Nicotine dependence, unspecified, uncomplicated; Z20.822 Contact with and (suspected) exposure to COVID-19; Z20.828 Contact with and (suspected) exposure to other viral communicable diseases; Z71.6 Tobacco abuse counseling; Z79.899 Other long term (current) drug therapy
CPT/HCPCS: 36415; 70450; 72125; 72128; 80053; 82550; 83605; 83690; 85025; 85610; 85652; 85730; 86140; 87635; 99284

== ENCOUNTER 2023-04-14 11:12 | Emergency (ER) | payer MEDICAID, SELFPAY ==
--- NOTE | ~2023-04-14 | XR_ITS ---
EXAMINATION: XR FOOT, LEFT CLINICAL INFORMATION: Acute traumatic left foot pain COMPARISON: None available. TECHNIQUE: AP, lateral, and oblique views of the left foot. FINDINGS: No visible acute fracture or dislocation. Alignment is anatomic. Tarsometatarsal alignment is maintained. Bones are osteopenic limiting evaluation. Joint spaces are maintained. No abnormal soft tissue calcification. XR/XR foot LT min 3V IMPRESSION: No displaced acute fracture is seen. Osteopenia limits evaluation. Recommend short-term follow-up x-rays if this persistent concern for fracture.
--- NOTE | 2023-04-14 11:19 | ED.LOWEXIN ---
HPI - Extremity Injury (Lower) General Chief Complaint: Extremity Injury, Lower Stated Complaint: l foot pain/swelling Time Seen by Provider: 04/14/23 11:18 Source: patient and EMS Mode of arrival: EMS Limitations: no limitations History of Present Illness HPI Narrative: 47-year-old female presents with acute left foot pain. 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 Patient was having or coffee when the wheelchair rolled over her left foot. She was recently hospitalized for an infection. On subsequent to that she developed sores on her left ankle and foot. Those appear to be improving. However, patient has moderate to severe pain. The pain is worse with palpation and movement. The pain does not radiate. There is no numbness or tingling. No other additional injuries. Related Data Previous Rx's Medication Instructions Recorded cephalexin 500 mg capsule 500 mg PO Q8H #21 caps 01/22/23 doxycycline hyclate 100 mg capsule 100 mg PO BID #20 caps 01/22/23 ferrous sulfate 324 mg (65 mg 324 mg PO BIDWM #60 tabs 01/22/23 iron) tablet,delayed release folic acid 1 mg tablet 1 mg PO DAILY #30 tabs 01/22/23 cephalexin 500 mg capsule 500 mg PO QID 7 days #28 caps 03/10/23 doxycycline hyclate 100 mg tablet 100 mg PO BID 7 days #14 tabs 03/10/23 acetaminophen 325 mg tablet 650 mg PO QID PRN fever or pain 04/14/23 (Tylenol) #30 tabs ibuprofen 600 mg tablet 600 mg PO Q8H PRN fever or pain 04/14/23 #14 tabs Allergies Allergy/AdvReac Type Severity Reaction Status Date / Time codeine [Codeine] Allergy Intermediate ITCHING, Verified 03/02/23 15:03 VOMTING, THROAT SWELLS tramadol [TRAMADOL] Allergy Intermediate BODY Verified 03/02/23 15:03 SWELLING PMFSH Past Medical History Medical History Asthma Drug abuse in remission Polysubstance (including opioids) dependence, daily use Social History Social History Alcohol intake: never Patient Tobacco Use Status: Current everyday Tobacco user Substance Use Type: Heroin Advance Directives: No Advance Directives Information Provided: Yes Physical Exam Vital Signs: Vital Signs: Last Vital Signs Temp 97.8 F 04/14/23 11:31 Pulse 103 H 04/14/23 11:31 Resp 16 04/14/23 11:31 BP 148/107 H 04/14/23 11:31 Pulse Ox 97 04/14/23 11:31 O2 Del Method Room Air 04/14/23 11:31 BMI result Body Mass Index 21.0 GEN: Well developed, no acute distress, alert, oriented HEENT: Normocephalic, atraumatic, normal external ears, nose appears normal Eyes: Normal to appearance Neck: Supple, no lymphadenopathy Respiratory: Talks in complete sentences, no respiratory distress Extremities: No clubbing cyanosis or edema, swelling and erythematous changes to the toes of the left foot, apparently healing ulcerations of the left lateral malleolus and foot area no evidence of infection Neurologic: No focal neurologic deficits, cranial nerves 2-12 intact, gait normal Skin: No rash Course Course Course Narrative: Patient presents with acute left foot pain following wheelchair injury. Will obtain an x-ray, provide patient with analgesia and re-evaluate. Reevaluation(s) Reevaluation #1: discussed results. will order post op show. Follow up as needed Time: 13:22 Medications Administered Discontinued Medications Generic Name Dose Route Start Last Admin Trade Name [id number] PRN Reason Stop Dose Admin Acetaminophen 975 mg 04/14/23 11:18 04/14/23 11:56 Acetaminophen 325 Mg Tablet PO 04/14/23 11:19 975 mg ONCE ONE Administration Ibuprofen 400 mg 04/14/23 11:18 04/14/23 11:56 Ibuprofen 400 Mg Tablet PO 04/14/23 11:19 400 mg ONCE ONE Administration Medical Decision Making Medical Decision Making [facility] Narrative: Patient presents with acute left foot pain following an injury. Will obtain an x-ray to rule out fracture, dislocation. Will provide patient with analgesia. There is no evidence of infection Differential Diagnosis Differential Diagnoses: The differential diagnosis associated with the presentation includes (Fracture, contusion, sprain, strain) Independent Interpretation I performed an independent interpretation of an: Plain X-Ray (nondisplaced fx left middle phalanx 4th digit) Independent Historian Clinical information obtained from an independent historian. History obtained from or confirmed by: EMS Prescription Management I considered prescription management with: Pain Medication Chronic Conditions Patient?s care impacted by: Other (Paralysis) Discharge Plan Discharge Clinical Impression: Acute foot pain, Fracture of toe Patient Disposition: Home, Self-Care Instructions: Toe Fracture (ED) Prescriptions: New acetaminophen [Tylenol] 325 mg tablet 650 mg PO QID PRN (Reason: fever or pain) Qty: 30 0RF ibuprofen 600 mg tablet 600 mg PO Q8H PRN (Reason: fever or pain) Qty: 14 0RF No Action doxycycline hyclate 100 mg capsule 100 mg PO BID Qty: 20 0RF cephalexin 500 mg capsule 500 mg PO Q8H Qty: 21 0RF folic acid 1 mg Tablet 1 mg PO DAILY Qty: 30 0RF ferrous sulfate 324 mg (65 mg iron) Tablet,Delayed Release (Dr/Ec) 324 mg PO BIDWM Qty: 60 0RF cephalexin 500 mg capsule 500 mg PO QID 7 Days Qty: 28 0RF doxycycline hyclate 100 mg tablet 100 mg PO BID 7 Days Qty: 14 0RF Referrals: [facility] [Primary Care Provider] - 1 week
[2023-04-14 11:31] VITALS: BP 130/78; BP 148/107; PULSE 103; PULSE 98; RESP 16; TEMP 36.6; O2SAT 97; BMI 21.0
[2023-04-14] MEDS: Acetaminophen 325 MG TABLET 975 MG PO (11:56)
[2023-04-14] MEDS: Ibuprofen 400 MG TABLET PO (11:56)
--- NOTE | 2023-04-14 12:17 | PC.NURSE ---
Pt wheelchair bound, coming from home. Clothing cut off patient with permission, cleaned and changed into hospital attire. Pt reports visiting nurse did not show and she has been incontinent of urine and stool for days, plan for her to move in with her daughter at this time.
== END 2023-04-14 14:50 | disposition home or self-care (01) ==
PROVIDERS: Emergency Provider Emergency Medicine
DX: S92.525A Nondisplaced fracture of middle phalanx of left lesser toe(s), initial encounter for closed fracture (principal); W23.0XXA Caught, crushed, jammed, or pinched between moving objects, initial encounter; Y93.9 Activity, unspecified; Y92.9 Unspecified place or not applicable; Y99.9 Unspecified external cause status
CPT/HCPCS: 73630; 99283

== ENCOUNTER 2023-06-16 08:30 | Emergency (ER) | payer MEDICAID, SELFPAY ==
[2023-06-16 08:40] VITALS: BP 113/86; BP 118/88; PULSE 102; PULSE 82; RESP 18; TEMP 36.6; O2SAT 96; BMI 21.1
[2023-06-16 08:48] VITALS: PULSE 76
--- NOTE | 2023-06-16 09:26 | PC.NURSE ---
pt a&ox3. respirations even and unlabored. skin appropriate for ethnicity but slightly warm to touch. pt reporting pain in lower extremities for 4 days. she previously got upper back surgery one month ago which caused her to be wheelchair bound. the pt went to [facility] for rehab where she was started on methadone 4 days ago. pt reports not having methadone since then. pt has hx of heroin use prior to arrival to the rehab facility. pt reporting 10/10 pain. CMS in tact. vss.
--- NOTE | 2023-06-16 09:30 | ED_ITS ---
HPI - Extremity Injury (Lower) General Chief Complaint: Extremity Injury, Lower Stated Complaint: WEAKNESS, BLE PAIN PER EMS Time Seen by Provider: 06/16/23 09:29 Source: patient and EMS Mode of arrival: EMS Limitations: other ( Poor historian ) History of Present Illness HPI Narrative: this is a 47-year-old female history of opiate use disorder, anemia, cocaine use disorder, COPD, paralyzed wheelchair bound presenting to the emergency department with global weakness, fatigue, malaise, diarhhea, body aches and pains, nausea, vomiting, diffuse abdominal discomfort for the past few days, she reports that she feels terrible. She tells me she was recently in a rehab [facility] after [place] surgery, patient typically gets around with wheelchair. She states she is not able to move from the chest down and this is normal for her and this is why she was also in rehab, since then has been using a wheelchair. Patient is coming from home, she did not come with her wheelchair today. She was brought in by ambulance. She denies chest pain, shortness of breath, fevers, chills, recent sick contacts, recent trauma, urinary or bowel incontinence or retention. On arrival patient repetitively screaming she needs help and pain meds, screaming I need a doctor now , minutes later she will scream I want to get out of this place . Tearful and states she has not had her methadone in 4 days and would like methadone she tells me she is opiate sick. Last time she used was before she went into rehab she states. Related Data Previous Rx's Medication Instructions Recorded cephalexin 500 mg capsule 500 mg PO Q8H #21 caps 01/22/23 doxycycline hyclate 100 mg capsule 100 mg PO BID #20 caps 01/22/23 ferrous sulfate 324 mg (65 mg 324 mg PO BIDWM #60 tabs 01/22/23 iron) tablet,delayed release folic acid 1 mg tablet 1 mg PO DAILY #30 tabs 01/22/23 cephalexin 500 mg capsule 500 mg PO QID 7 days #28 caps 03/10/23 doxycycline hyclate 100 mg tablet 100 mg PO BID 7 days #14 tabs 03/10/23 acetaminophen 325 mg tablet 650 mg PO QID PRN fever or pain 04/14/23 (Tylenol) #30 tabs ibuprofen 600 mg tablet 600 mg PO Q8H PRN fever or pain 04/14/23 #14 tabs Allergies Allergy/AdvReac Type Severity Reaction Status Date / Time codeine [Codeine] Allergy Intermediate ITCHING, Verified 06/16/23 08:45 VOMTING, THROAT SWELLS tramadol [TRAMADOL] Allergy Intermediate BODY Verified 06/16/23 08:45 SWELLING Review of Systems Review of Systems: Constitutional : No Weight loss, No Fever, No Chills, + Fatigue, + Malaise ENT/Mouth : No sore throat, No Rhinorrhea Eyes: No Eye Pain, No Swelling, No Redness Cardiovascular : No Chest Pain, No SOB, No Dyspnea on Exertion, No Orthopnea, No Edema, No Palpitations Respiratory : No Cough, No Sputum, No Wheezing Gastrointestinal : + Nausea, + Vomiting, + Diarrhea, No Constipation, + abdominal Pain, No Hematochezia, No Melena Genitourinary : No Dysuria, No Urinary Frequency, No Hematuria, Musculoskeletal : No joint pain, No Myalgias, No Joint Swelling Skin : No Skin Lesions, No rash Neuro : + Weakness, No Numbness, No Dizziness, No Headache Psych : No Anxiety/Panic, No Depression All other systems reviewed and are negative Yes all other systems are reviewed and are negative [facility] Past Medical History Attestation statement: The following information was validated with the patient. Source: old records reviewed and nursing notes reviewed Medical History Asthma Drug abuse in remission Polysubstance (including opioids) dependence, daily use Social History Social History Alcohol intake: never Patient Tobacco Use Status: Current everyday Tobacco user Smoked in Last 30 Days: Yes Use of substances other than those prescribed or required for medical reasons: Yes Substance Use Type: Heroin Last Used Substance: Weeks (ago) Advance Directives: Yes Advance Directives on File: Yes Advance Directives Date on File: 06/16/23 Physical Exam Vital Signs: Vital Signs: Last Vital Signs Temp 97.9 F 06/16/23 08:40 Pulse 73 06/16/23 10:18 Resp 16 06/16/23 10:18 BP 117/72 06/16/23 10:18 Pulse Ox 96 06/16/23 10:18 O2 Del Method Room Air 06/16/23 10:18 BMI result Body Mass Index 21.1 vss Appearance: Alert.? Oriented X3.? No acute distress.? Head: Normocephalic, atraumatic, no step-offs or deformities Eyes: Pupils equal, round and reactive to light.? Neck: Normal inspection.? Neck supple.? CVS: Normal heart rate and rhythm.? Pulses normal.? Respiratory: No respiratory distress.? Breath sounds normal.? Abdomen: Soft and Mild diffuse abdominal tenderness negative Beach's, Rovsing's, McBurney's point.? Skin: Skin warm and dry.? Normal skin color.? Normal skin turgor.? Extremities: No lower extremity edema.? No calf ttp. global weakness Neuro: Oriented X 3.? No sensory deficit. states she cant move legs ( her baseline) Course Reevaluation(s) Reevaluation #1: Patient has been screaming for the past few hours, demanding pain medicine. She was seen by the monomer recovery operator and recovery nurse who recommended 1 dose of methadone as patient was on methadone, a single dose was given here. Agrees that patient is likely in withdrawal from opiates. Patient is now demanding that she goes home does not want any further intervention and treatment. Initially she expressed interest in physical therapy and case management however now she is adamant that she does not want to be here refusing labs refusing further evaluation, treatment, imaging if necessary. Demanding to leave at this time will be leaving against medical advice Reevaluation #2: CBC is pending likely hemolyzed however patient refusing labs. Chemistry with elevated BUN patient tolerating p.o. encouraged p.o. hydration. Patient also noted to have an elevated CPK however not meeting criteria for rhabdo tolerating p.o. fluids, refusing an IV refusing further evaluation and treatment. Will discharge patient home Leaving against medical advice. She states she is unable to walk however has not been able to walk for a while uses a wheelchair. Nursing to figure out how patient will go home. Time: 12:37 Reevaluation #3: initially recovery/ addiction medicine recommended clonidine, Atarax, Imodium for diarrhea and methadone. Medications Administered Discontinued Medications Generic Name Dose Route Start Last Admin Trade Name Freq PRN Reason Stop Dose Admin Clonidine HCl 0.1 mg 06/16/23 09:55 06/16/23 10:14 Clonidine Hcl 0.1 Mg Tablet PO 06/16/23 09:56 0.1 mg ONCE ONE Administration Protocol Hydroxyzine HCl 25 mg 06/16/23 09:55 06/16/23 10:15 Hydroxyzine Hcl 25 Mg Tablet PO 06/16/23 09:56 25 mg ONCE ONE Administration Loperamide HCl 2 mg 06/16/23 09:55 06/16/23 10:15 Loperamide Hcl 2 Mg Capsule PO 06/16/23 09:56 2 mg ONCE ONE Administration Methadone HCl 30 mg 06/16/23 09:55 06/16/23 10:15 Methadone Hcl 20 Mg/2 Ml Oral.Conc PO 06/16/23 09:56 30 mg ONCE ONE Administration Medical Decision Making Medical Decision Making MDM Narrative: 47-year-old female presents with nausea, vomiting, fatigue, malaise, diffuse abdominal discomfort for the past few days. Requesting methadone. Poor historian. Wheelchair-bound brought in by EMS. voicing interest in physical therapy and case management evaluation Physical exam with no acute findings. Patient is likely in opiate withdrawal. Other differentials include viral illness. Will rule out metabolic derangement, electrolyte abnormalities. Patient is unable to move her legs at baseline, I do not suspect cord compression, new spinal injuries, no reported trauma. No signs of cauda equina or epidural abscess. Unlikely DVT, arterial occlusion. will also rule out UTI and polysubstance abuse Plan at this time labs, resource recovery engineer, U tox Differential Diagnosis Differential Diagnoses: The differential diagnosis associated with the presentation includes Patient is likely in opiate withdrawal. Other differentials include viral illness. Will rule out metabolic derangement, electrolyte abnormalities. Patient is unable to move her legs at baseline, I do not suspect cord compression, new spinal injuries, no reported trauma. No signs of cauda equina or epidural abscess. Unlikely DVT, arterial occlusion. will also rule out UTI and polysubstance abuse Admission/Observation Consideration of admission/observation: Escalation of care including admission/observation considered possible hospital admission or physical therapy and case management Consult Healthcare Provider Management of the patient was discussed with: Assault Amphibious Vehicle Crewman ( addiction medicine) Lab Data [facility] Lab Attestation statement: I reviewed the patient's lab results. 06/16/23 10:49 06/16/23 10:49 Labs: Lab Results 06/16/23 06/16/23 06/16/23 Range/Units 10:23 10:49 10:49 Sodium 138 (135-145) mmol/L Potassium 4.4 (3.3-5.1) mmol/L Chloride 106 (96-108) mmol/L Carbon Dioxide 20 L (22-29) mmol/L Anion Gap 16 (12-20) BUN 29 H (9-16) mg/dL Creatinine 0.78 (0.5-1.4) mg/dL Estim Creat Clear Calc 69.7 Estimated GFR > 60 Random Glucose 112 (60-115) mg/dL Calcium 9.6 D (8.4-10.2) mg/dL Total Bilirubin 0.3 (0.0-1.0) mg/dL AST 28 (5-31) U/L ALT 10 (0-31) U/L Alkaline Phosphatase 118 H (39-117) U/L Total Creatine Kinase 598 H (26-140) U/L Total Protein 8.9 H (6.5-8.0) g/dL Albumin 3.7 (3.5-5.0) g/dL COVID-19 ([facility]) Negative (Negative) COVID-19 Clin Com See Note Core Measures AMI core measures followed: Yes Measure exclusions: not indicated Critical Care Time Critical Care Time Critical Care Time: Yes Total Critical Care Time: 35 Attestation: I attest to this time spent taking care of the patient, obtaining history, physical, reviewing labs, imaging, speaking to my attending, speaking to specialist. Discharge Plan Discharge Clinical Impression: Opioid use disorder, Weakness Patient Disposition: Left Against Medical Advice Instructions: Against Medical Advice (ED), Opioid Use Disorder (ED) Additional Instructions: Take your medications as prescribed. If you were prescribed antibiotics today, it is important that you take your medication to their entirety, do not skip any doses, do not finish them early. Follow-up with your primary care provider this week. Return to the emergency department with new or worsening symptoms. Such as fevers, chills, chest pain, shortness of breath, nausea, vomiting, dizziness, headache, vision changes, lethargy In case of emergency call 911 Prescriptions: No Action doxycycline hyclate 100 mg capsule 100 mg PO BID Qty: 20 0RF cephalexin 500 mg capsule 500 mg PO Q8H Qty: 21 0RF folic acid 1 mg Tablet 1 mg PO DAILY Qty: 30 0RF ferrous sulfate 324 mg (65 mg iron) Tablet,Delayed Release (Dr/Ec) 324 mg PO BIDWM Qty: 60 0RF acetaminophen [Tylenol] 325 mg tablet 650 mg PO QID PRN (Reason: fever or pain) Qty: 30 0RF ibuprofen 600 mg tablet 600 mg PO Q8H PRN (Reason: fever or pain) Qty: 14 0RF cephalexin 500 mg capsule 500 mg PO QID 7 Days Qty: 28 0RF doxycycline hyclate 100 mg tablet 100 mg PO BID 7 Days Qty: 14 0RF Referrals: [facility] [Primary Care Provider] - 2 days Stand Alone Forms: Against Medical Advice
--- NOTE | 2023-06-16 10:05 | MHC.RECOVRN ---
Addendum entered by Sera Adams 06/16/23 10:09: Pt reports being active with [facility] but has been unable to go since dc from [facility] due to pain, weakness, immobility. Original Note: Met with pt in ED11 after pt presented for lower extremity pain since yesterday. Pt reports dc from [facility] 4 days ago and had been receiving 80 mg methadone daily. Pt reports last methadone dose was at [facility]. Reports last opioid use prior to [facility] admission. Pt currently laying in bed, grimacing, reporting chills, loose stool, body aches. Spoke with provider, pt to receive 30 mg methadone as well as comfort medications.
[2023-06-16] MEDS: cloNIDine HCL 0.1 MG TABLET PO (10:14)
[2023-06-16] MEDS: methADONE HCl 20 MG/2 ML ORAL.CONC 30 MG PO (10:15)
[2023-06-16] MEDS: Loperamide HCl 2 MG CAPSULE PO (10:15)
[2023-06-16] MEDS: hydrOXYzine HCL 25 MG TABLET PO (10:15)
[2023-06-16 10:18] VITALS: BP 117/72; PULSE 73; RESP 16; O2SAT 96
[2023-06-16 10:47] LABS: COVID-19 Test Negative (Negative); IDNOW Serial# BCCEAD1C
[2023-06-16 11:14] LABS: Alanine Aminotransferase 10 U/L (0-31); Albumin Level 3.7 g/dL (3.5-5.0); Alkaline Phosphatase 118 U/L (39-117); Anion Gap 16 (12-20); Aspartate Amino Transferase 28 U/L (5-31); Bilirubin Total 0.3 mg/dL (0.0-1.0); Blood Urea Nitrogen 29 mg/dL (9-16); Calcium 9.6 mg/dL (8.4-10.2); Carbon Dioxide 20 mmol/L (22-29); Chloride 106 mmol/L (96-108); Creatinine Clr Calc Pharmacy 69.7; Estimated Glomerular Filt Rate > 60; Glucose Random 112 mg/dL (60-115); Potassium 4.4 mmol/L (3.3-5.1); Sodium 138 mmol/L (135-145); Total Protein 8.9 g/dL (6.5-8.0)
--- NOTE | 2023-06-16 12:36 | MHC.EDTECH ---
went to obtain blood sample. Last sample hemolyzed. Pt refused lab draw. Patient demanding to leave. Provider Leatha mejias.
== END 2023-06-16 14:43 | disposition left against medical advice (07) ==
PROVIDERS: Physician Assistant; Emergency Provider Emergency Medicine
DX: R53.1 Weakness (principal); F11.20 Opioid dependence, uncomplicated; F19.10 Other psychoactive substance abuse, uncomplicated; Z20.822 Contact with and (suspected) exposure to COVID-19
CPT/HCPCS: 36415; 80053; 82550; 85025; 87635; 99283; 99284

== ENCOUNTER 2023-06-22 21:43 | Emergency (ER) | payer MEDICAID, SELFPAY ==
--- NOTE | ~2023-06-22 | XR_ITS ---
EXAMINATION: XR SHOULDER, LEFT CLINICAL INFORMATION: Left shoulder pain COMPARISON: None available. TECHNIQUE: Two views of the left shoulder. FINDINGS: Glenohumeral alignment is anatomic. Acromioclavicular joint is intact. There is a slightly displaced fracture of the posterior left second rib. No additional focal osseous abnormality is seen. XR/XR shoulder LT min 2V IMPRESSION: Slightly displaced fracture of the posterior left second rib. Otherwise no acute findings of the left shoulder.
[2023-06-22 22:02] VITALS: BP 115/75; BP 118/94; PULSE 80; PULSE 84; RESP 17; TEMP 36.2; O2SAT 95; BMI 22.5
[2023-06-23 01:20] VITALS: BP 124/64; PULSE 88; RESP 18; TEMP 36.7; O2SAT 94
--- NOTE | 2023-06-23 01:34 | ED.EXTPRO ---
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 The patient states that she fell yesterday and since that time she has had pain in her left neck and left shoulder. The patient has history of heroin use disorder and continues to use heroin. She states that she last injected heroin 1 week prior and used approximately 5 bags. Patient states that she got out of [facility] approximately 3 weeks prior has been homeless. She denied fever, chills, chest pain, shortness of breath, nausea, vomiting. Related Data Previous Rx's Medication Instructions Recorded cephalexin 500 mg capsule 500 mg PO Q8H #21 caps 01/22/23 doxycycline hyclate 100 mg capsule 100 mg PO BID #20 caps 01/22/23 ferrous sulfate 324 mg (65 mg 324 mg PO BIDWM #60 tabs 01/22/23 iron) tablet,delayed release folic acid 1 mg tablet 1 mg PO DAILY #30 tabs 01/22/23 cephalexin 500 mg capsule 500 mg PO QID 7 days #28 caps 03/10/23 doxycycline hyclate 100 mg tablet 100 mg PO BID 7 days #14 tabs 03/10/23 acetaminophen 325 mg tablet 650 mg PO QID PRN fever or pain 04/14/23 (Tylenol) #30 tabs ibuprofen 600 mg tablet 600 mg PO Q8H PRN fever or pain 04/14/23 #14 tabs Allergies Allergy/AdvReac Type Severity Reaction Status Date / Time codeine [Codeine] Allergy Intermediate ITCHING, Verified 06/22/23 22:02 VOMTING, THROAT SWELLS tramadol [TRAMADOL] Allergy Intermediate BODY Verified 06/22/23 22:02 SWELLING Review of Systems Review of Systems: Yes all other systems are reviewed and are negative PMFSH Past Medical History PMFSH Narrative: Social history: She states that she is homeless. She continues to use injection heroin. She states that she was getting methadone while she was in intermediate rehab but since leaving the rehab facility she has not been able go to the methadone clinic. Medical History Asthma Drug abuse in remission Polysubstance (including opioids) dependence, daily use Social History Social History Alcohol intake: never Patient Tobacco Use Status: Current everyday Tobacco user Substance Use Type: Heroin Advance Directives: Yes Advance Directives on File: Yes Advance Directives Date on File: 06/16/23 Physical Exam Vital Signs: Vital Signs: Last Vital Signs Temp 98.1 F 06/23/23 01:20 Pulse 88 06/23/23 01:20 Resp 18 06/23/23 01:20 BP 124/64 06/23/23 01:20 Pulse Ox 94 06/23/23 01:20 O2 Del Method Room Air 06/23/23 01:20 BMI result Body Mass Index 22.5 Vital signs stable General: Awake, alert, female patient, does not appear to be in distress HEENT: Head is normal cephalic and atraumatic, pupils were equal round reactive light, sclera contact however normal, mouth revealed moist membranes Neck: Patient has tenderness palpation of her left trapezius muscle. Chest: No chest wall tenderness Lungs: Clear to auscultation breath sounds symmetric bilaterally Heart: Regular rate rhythm, normal S1-S2, no murmurs rubs gallops Abdomen: Soft, nontender, nondistended with normoactive bowel sounds Back: No tenderness Extremities: Patient has tenderness palpation of her left shoulder. Patient has atrophy of lower extremities Neuro: Patient has paraplegia of her lower extremities Medical Decision Making Medical Decision Making MDM Narrative: 47-year-old female with history of heroin use disorder, asthma, paraplegia lower extremity secondary to paraspinal abscess who presents emergency department for evaluation of left shoulder pain after falling out of her wheelchair yesterday. The patient is homeless and she continues to use injection heroin. On examination she did have tenderness palpation of her left shoulder. I did order left shoulder x-ray. 0159: Start physician observation Patient's left shoulder x-ray revealed no acute fracture but she does have a displaced fracture of the 2nd rib. The patient states that she cannot use her wheelchair and is requesting evaluation for possible short-term rehab. The patient will be kept in the emergency department until she can be evaluated by physical therapy and case management. I will also have the recovery/care team evaluate the patient to see if we can restart her on methadone Patient pain will be treated with oxycodone and Tylenol. Differential Diagnosis Differential Diagnoses: The differential diagnosis associated with the presentation includes Differential diagnosis includes was not limited to shoulder fracture, shoulder contusion, rib fracture Admission/Observation Consideration of admission/observation: Escalation of care including admission/observation considered Independent Interpretation I performed an independent interpretation of an: Plain X-Ray Interpretation: My independent interpretation of the patient's left shoulder x-rays as follows: No acute fracture of the shoulder noted, patient has a comminuted fracture of the 2nd rib Radiology Impression Discussion of test interpretation with radiology: I have reviewed the radiologist's reading. Radiologist Impression: XR shoulder LT min 2V IMPRESSION: Slightly displaced fracture of the posterior left second rib. Otherwise no acute findings of the left shoulder. Dictated By:Ambrose Yun MD Discharge Plan Discharge Clinical Impression: Fall, Fracture of ribs, two, closed, Chronic paraplegia Prescriptions: No Action doxycycline hyclate 100 mg capsule 100 mg PO BID Qty: 20 0RF cephalexin 500 mg capsule 500 mg PO Q8H Qty: 21 0RF folic acid 1 mg Tablet 1 mg PO DAILY Qty: 30 0RF ferrous sulfate 324 mg (65 mg iron) Tablet,Delayed Release (Dr/Ec) 324 mg PO BIDWM Qty: 60 0RF acetaminophen [Tylenol] 325 mg tablet 650 mg PO QID PRN (Reason: fever or pain) Qty: 30 0RF ibuprofen 600 mg tablet 600 mg PO Q8H PRN (Reason: fever or pain) Qty: 14 0RF cephalexin 500 mg capsule 500 mg PO QID 7 Days Qty: 28 0RF doxycycline hyclate 100 mg tablet 100 mg PO BID 7 Days Qty: 14 0RF
[2023-06-23] MEDS: oxyCODONE HCl Immed Release 5 MG TABLET PO ×4 (03:03→21:13)
[2023-06-23] MEDS: Acetaminophen 325 MG TABLET 650 MG PO ×4 (03:04→19:18)
--- NOTE | 2023-06-23 03:09 | PC.NURSE ---
medicated with 5 mg of oxycodone and Tylenol po for 8/10 rib pain
--- NOTE | 2023-06-23 07:18 | PC.NURSE ---
patient sleeping in stretcher, respirations equal and unlabored. patient shows no signs of distress
[2023-06-23 08:05] VITALS: BP 117/75; PULSE 98; RESP 14; TEMP 36.8; O2SAT 96
--- NOTE | 2023-06-23 08:28 | PC.NURSE ---
patient was incontinent of urine and stool, patient has several small open areas on her coccyx and sacral region.
[2023-06-23 09:25] LABS: COVID-19 Test Negative (Negative); IDNOW Serial# 9DB6401D
--- NOTE | 2023-06-23 09:31 | PHA.MEDREC ---
Pharmacy Consult ? Medication Reconciliation Pharmacy has completed the medication reconciliation. spoke with patient. Says she is currently not taking any medications but was taking meds when she was in the rehab facility. ASSIGNMENT OFFICER shows fills from this month of zolpidem and clonazepam. Patient reports last taking methadone here during her last visit to the ED.
--- NOTE | 2023-06-23 11:05 | MHC.RECOVRN ---
Met with pt in ED12 after consult placed to Addiction Medicine. Pt presented to ED for left shoulder pain after falling out of her wheelchair yesterday. After physical therapy evaluation, goal for pt to be placed in [facility]. Pt laying in bed, asleep, briefly wakes to touch, somnolent, difficult to engage in conversation. Pt reports feeling good. Pt reports heroin use, 4-5 bags per shot, 2 shots daily, last use 06/21. Pt is not currently experiencing withdrawal. Pt self directed discharge from [facility] at the beginning of the month. Per last ED visit, pt reported receiving 80 mg methadone while at [facility] and plan was to follow up with [facility]. T/w spoke with Heather at [facility], pt is not in their system. Pt appears comfortable at this time, will meet with pt when more awake.
--- NOTE | 2023-06-23 11:45 | PC.NURSE ---
Recovery nurse concerned about patients level of sedation and if she had any access and use of drugs, pt was agreeable for security to search belongings, no drugs found, she did have some paraphernalia but no drugs were found/ pt is arousable
--- NOTE | 2023-06-23 12:17 | MHC.CM.ED ---
Received case management consult overnight. Patient is homeless and wheelchair bound at baseline. Patient fell out of wheelchair. Work up essentially negative. Physical therapy eval completed. Short term rehab is recommended. Patient admits to heroin use 1 week ago. Patient will be difficult to place due to this. Referral made to [facility]. Patient left AMA from [facility] on 06/12. [facility] wants to make sure patient is aware she has to participate in rehab and can't sign out AMA. Met with patient to discuss discharge planning. Patient is agreeable to rehab at [facility] and is aware she can't leave AMA. [facility] made aware. Will need [facility] PASRR Level 2.T/W already submitted for this. Continue to monitor for d/c needs.
[2023-06-23 12:39] VITALS: BP 116/80; PULSE 91; RESP 15; TEMP 37; O2SAT 94
[2023-06-23 14:00] VITALS: BP 99/61; PULSE 94; RESP 16; TEMP 37.1; O2SAT 95
--- NOTE | 2023-06-23 14:40 | PC.NURSE ---
ALLEVYN LIFE 4X4 PLACED ON UPPER SACRAL PRESSURE SORES, RIGHT IS LARGER THAN THE LEFT. BARRIER CREAM PLACED, SHE IS INCONTINENT OF STOOL AND URINE. THIS RN OFFERED TO ST [facility]ATH FOR URINE SPEC PT DECLINED, URINE DOES HAVE A STRONG ODOR
--- NOTE | 2023-06-23 14:49 | MHC.EDTECH ---
After 1400 Vitals. Patient was cleaned up, Bedding changed, Repositioned to her Right side. Pillow were put behind her to support her bottom and ribs. A Pillow was put between her knees, and under her ankles to prevent more pressure on her feet. Warm blanket given. Call garcia placed back onto her bed.
--- NOTE | 2023-06-23 15:19 | MHC.RECOVRN ---
Attempted to speak with [facility] regarding pts methadone and ability to continue after last dose at the [facility] presumably 06/12, however, unable to reach anyone. Will continue to try.
[2023-06-23 16:14] VITALS: BP 98/55; PULSE 78; RESP 18; TEMP 36.6; O2SAT 96
--- NOTE | 2023-06-23 16:17 | MHC.RECOVRN ---
Attempted to meet with pt to follow up regarding methadone. Pt laying in bed, asleep, briefly wakes to touch, unable to participate in conversation. Will continue to follow.
--- NOTE | 2023-06-23 18:04 | PC.NURSE ---
pt was cleaned and repositioned after urine incontinence. report was given for transfer to overflow unit to await case managemnt bed search
--- NOTE | 2023-06-23 19:47 | PC.NURSE ---
meet this pt, pt called for pain relief med, given acetaminophen 650 mg, pt was laying down in bed comfortably with mother at bedside, pt request for the reposition to right. total bed changed with incontinent. buttock is red two foam dressing applied. pt request strong pain meds. at this time no order, waiting for the methadone to schedule. CONT monitor s/s q2 rep.
--- NOTE | 2023-06-23 21:16 | PC.NURSE ---
requested PRN pain med and repositioned to right, bilateral leg passive ROM, elevated, off the heels from pillow.
[2023-06-23 21:52] VITALS: BP 111/58; PULSE 78; RESP 16; TEMP 36.5; O2SAT 98
[2023-06-23] MEDS: clonazePAM 1 MG TABLET PO (23:53)
[2023-06-23] MEDS: Zolpidem Tartrate 5 MG TABLET PO (23:53)
--- NOTE | 2023-06-23 23:54 | PC.NURSE ---
pt c/o withdrawal, notified to ED charge nurse Alondra, bring it the zolpidem 5 mg, clonzepam 1 mg. given by this nurse.
[2023-06-24] MEDS: Acetaminophen 325 MG TABLET 650 MG PO ×2 (00:21→05:50)
[2023-06-24] MEDS: oxyCODONE HCl Immed Release 5 MG TABLET PO ×2 (03:09→08:40)
[2023-06-24 05:14] VITALS: BP 88/51; PULSE 63; RESP 16; TEMP 36.7; O2SAT 99
[2023-06-24 05:34] VITALS: BP 109/66; PULSE 72; RESP 16; O2SAT 98
[2023-06-24 05:51] VITALS: BP 117/74; PULSE 72; RESP 16; O2SAT 96
--- NOTE | 2023-06-24 05:52 | PC.NURSE ---
pt bp was 88/51 left upper arm, provide water and lani prema 240 mL, head down, leg elevated. notified order compression boots. rechecked in 15 min. 109/66 right upper arm. rechecked 117/74. provided tylenol for 10/10 pain. CONST monitor s/s or any changes.
[2023-06-24] MEDS: clonazePAM 1 MG TABLET PO (09:32)
--- NOTE | 2023-06-24 10:46 | MHC.CM.ED ---
Received notification from VENTURA Whelan that patient was requesting to be d/c'd and decling STR at this time.
--- NOTE | 2023-06-24 10:47 | PC.NURSE ---
pt did not want to stay and wait for methadone verification. PA aware and put in discharge for patient. Pt dressed and assisted to wheelchair and escorted out of [facility] by recovery nurse Sera.
--- NOTE | 2023-06-24 13:56 | MHC.RECOVRN ---
Met with pt prior to dc to discuss methadone reinitiation. Pt laying in bed, awake, alert, easily engages in conversation, does not appear to be experiencing withdrawal. T/w had spoken with [facility] and was informed pt would be able to return to dosing there if placed at [facility]. T/w relayed information to pt and informed pt we would be able to restart methadone while here. Pt declined, states I'm just going to see my PCP. Pt aware [facility] does take walk ins if pt would like to restart methadone outpatient. Pt plans to stay with mother or daughter after discharge from [facility]. Declines other recovery support/services at this time.
== END 2023-06-24 10:35 | disposition home or self-care (01) ==
PROVIDERS: Physician Assistant; Emergency Provider Emergency Medicine Emergency Medical Services
DX: S22.32XA Fracture of one rib, left side, initial encounter for closed fracture (principal); W05.0XXA Fall from non-moving wheelchair, initial encounter; G82.20 Paraplegia, unspecified; F11.20 Opioid dependence, uncomplicated; F19.20 Other psychoactive substance dependence, uncomplicated; F17.200 Nicotine dependence, unspecified, uncomplicated; Y93.9 Activity, unspecified; Y92.9 Unspecified place or not applicable; Y99.9 Unspecified external cause status
CPT/HCPCS: 73030; 87635; 97163; 99284

== ENCOUNTER 2023-07-13 10:04 | Emergency (ER) | payer MEDICAID, SELFPAY ==
[2023-07-13 10:09] VITALS: BP 132/90; PULSE 72; O2SAT 98
[2023-07-13 10:13] VITALS: BP 137/91; PULSE 59; RESP 16; TEMP 36.6; O2SAT 94; BMI 19.0
--- NOTE | 2023-07-13 10:21 | ED.EXTPRO ---
HPI - Extremity Problem General Chief complaint: General Medical Stated complaint: Leg pain/stiffness x 2 weeks per EMS Time Seen by Provider: 07/13/23 10:16 Source: patient and old records reviewed Mode of arrival: EMS Limitations: no limitations History of Present Illness HPI Narrative: 47 yo female hx of opiate use disorder, crack cocaine abuse, COPD, hx of cervical osteomyelitis/MRSA epidural abscess with surgery on neck at [facility] back in January 2023 - paraplegic and WC bound. She has a hx of visits to our hospital for fevers, weakness, malaise and admissions but then leaves AMA - she was found in the past with a crack pipe from last admission back in January 2023 and refused to hand it over then signed out AMA. She left AMA from our ED back 06/16 after getting methadone and presented likely in opiate withdrawal. Was seen here on 06/22 and left AMA after fall and was to go to [facility] rehab. Today she reports chronic spasticity since her surgery and notes she was doing better at [facility] on baclofen she was taking that with her methadone. She took the baclofen twice a day and had no issues. She states they just stopped it and she has been trying to manage but it is just to painful. She states the spasicity and pain in her legs is chronic and not new and she does not want narcotics she just wants to get back on the baclofen. She denies fevers or IVDA in the last month. no other complaitns. She got dosed with 80mg methadone today. Complaint: extremity pain Onset (ago): month(s) (3+) Pain Consistency: constant Location: left, right and lower extremity Quality: burning and aching Radiation: none Relieving factors: nothing Exacerbating factors: nothing Associated symptoms: denies other symptoms Context: other (chronic issue since neck surgery and epidural abscess) Related Data Home Medications Medication Instructions Recorded Confirmed clonazepam 1 mg tablet 1 mg PO BID 06/23/23 06/23/23 zolpidem 10 mg tablet 10 mg PO BEDTIME 06/23/23 06/23/23 Previous Rx's Medication Instructions Recorded naproxen 500 mg tablet 500 mg PO BID 7 days #14 tabs 06/24/23 baclofen 10 mg tablet 10 mg PO BID #20 tabs 07/13/23 Allergies Allergy/AdvReac Type Severity Reaction Status Date / Time codeine [Codeine] Allergy Intermediate ITCHING, Verified 06/22/23 22:02 VOMTING, THROAT SWELLS tramadol [TRAMADOL] Allergy Intermediate BODY Verified 06/22/23 22:02 SWELLING Review of Systems Review of Systems: Constitutional : No Fever, No Chills Cardiovascular : No Chest Pain, No SOB Respiratory : No Cough, No Dyspnea Gastrointestinal : No Nausea, No Vomiting, No Diarrhea, No abdominal Pain Genitourinary : No Dysuria, No Hematuria Musculoskeletal : positive leg pain No Joint Swelling Skin : No Skin lacerations, No rash Neuro : no new deficits Psych : No Anxiety/Panic, No Depression All other systems reviewed and are negative PMFSH Past Medical History Medical History Asthma Drug abuse in remission Polysubstance (including opioids) dependence, daily use Social History Social History Alcohol intake: never Patient Tobacco Use Status: Current everyday Tobacco user Substance Use Type: Heroin Advance Directives Date on File: 06/16/23 Physical Exam Vital Signs: Vital Signs: Last Vital Signs Temp 97.8 F 07/13/23 10:13 Pulse 59 07/13/23 10:13 Resp 16 07/13/23 10:13 BP 137/91 H 07/13/23 10:13 Pulse Ox 94 07/13/23 10:13 O2 Del Method Room Air 07/13/23 10:13 BMI result Body Mass Index 19.0 Medical Decision Making Medical Decision Making MDM Narrative: 47 yo female hx of opiate use disorder, crack cocaine abuse, COPD, hx of cervical osteomyelitis/MRSA epidural abscess with surgery on neck at [facility] back in January 2023 - paraplegic and WC bound. She has recurrent visits to our ED with poor behavior and choices leading to her AMA disposition and demanding of narcotics though we usually give her methadone. Today she reports chronic spasticity since her surgery and notes she was doing better at [facility] on baclofen she was taking that with her methadone. She took the baclofen twice a day and had no issues. She denies IVDA or fevers > 1 month. She was dose with methadone this AM. She is requesting baclofen Rx. She notes this pain is not new she just cannot take it anymore and was doing better at [facility] on it. She denies sedation. She notes she has not had diarrhea or vomiting - doubt DVT, has normal pulses doubt occlusion, no GI losses to suggest lyte abnormality. This has been 3+ months. At this time will dose with baclofen and refer to PCP Differential Diagnosis Differential Diagnoses: The differential diagnosis associated with the presentation includes spasticity, opiate use disoder, neuropathic pain Admission/Observation Consideration of admission/observation: Escalation of care including admission/observation considered chronic issue VS stable can be DC home afebrile Independent Historian Clinical information obtained from an independent historian. History obtained from or confirmed by: EMS External Record Review External record reviewed: Inpatient record Prescription Management I considered prescription management with: Other Social Determinants Patient?s care significantly limited by Social Determinants of Health including: Problems related to primary support group Discharge Plan Discharge Clinical Impression: Bilateral leg pain, Spasticity Patient Disposition: Home, Self-Care Instructions: Muscle Spasm (ED), Leg Pain (ED) Additional Instructions: please talk to your doctor about this new medication this week - return for confusion, worsening pain, fevers, blue feet or any other concerns Prescriptions: New baclofen 10 mg tablet 10 mg PO BID Qty: 20 0RF No Action clonazepam 1 mg Tablet 1 mg PO BID zolpidem 10 mg Tablet 10 mg PO BEDTIME naproxen 500 mg tablet 500 mg PO BID 7 Days Qty: 14 0RF
--- NOTE | 2023-07-13 10:35 | PC.NURSE ---
patient presents with bilateral leg stiffness for 2 months, patient brought in by EMS with her wheelchair. patient is wheelchair bound and states she is homeless. patient states she recieves her methadone at [facility], gets 80mg a day, and was dosed today.
[2023-07-13] MEDS: Baclofen 10 MG TABLET PO (10:42)
--- NOTE | 2023-07-13 10:47 | PC.NURSE ---
patient resting in bed, changed into hospital attire. call garcia within reach, patient shows no signs of distress
[2023-07-13 10:49] VITALS: BP 114/79; PULSE 54; RESP 18; TEMP 36.4; O2SAT 94
== END 2023-07-13 11:28 | disposition home or self-care (01) ==
PROVIDERS: Emergency Provider Emergency Medicine
DX: M79.605 Pain in left leg (principal); M79.604 Pain in right leg; M62.838 Other muscle spasm; M54.2 Cervicalgia; F17.210 Nicotine dependence, cigarettes, uncomplicated; Z71.6 Tobacco abuse counseling
CPT/HCPCS: 99283; 99284

== ENCOUNTER 2023-07-26 00:04 | Inpatient (IN) | payer MEDICAID, SELFPAY ==
[2023-07-26] VITALS (8 sets, daily range): BP systolic 98–136; BP diastolic 44–81; PULSE 76–108; RESP 12–20; TEMP 36.2–37.2; O2SAT 93–98; BMI 16.9
--- NOTE | ~2023-07-26 | CT_ITS ---
EXAMINATION: CT PELVIS WITHOUT CONTRAST CLINICAL INFORMATION: Pain. Concern for osteomyelitis. COMPARISON: None available. TECHNIQUE: Helical scanning was performed with submillimeter collimation through the pelvis. Sagittal and coronal multiplanar 2-D reconstructions were obtained. This CT examination was performed using dose optimization techniques as appropriate, variously including the following: *Automated exposure control *Adjustment of mA and/or kV according to patient size (this includes techniques or standardized protocols for targeted exams where dose is matched to indication/reason for exam; i.e. extremities or head) *Use of iterative reconstruction technique DLP: 241 mGy-cm FINDINGS: PELVIS: There is mild urinary bladder wall thickening. There is retained stool within the visualized colon. There is no significant free fluid within the pelvis. There is distal rectal/anal region thickening. OSSEOUS STRUCTURES: There is no evidence for cortical erosion in the region of the large fascial region extending to the region of the ischium. No fluid collection is seen. CT/CT pelvis wo IV con IMPRESSION: Retained stool. Distal rectal/anal region thickening of uncertain significance. Urinary bladder wall thickening. Right ischial region decubitus ulcer extending to the level of right ischium. No definitive cortical erosive changes seen to suggests osteomyelitis.
--- NOTE | 2023-07-26 01:03 | ED.SKABFB ---
HPI - Skin/Abscess/Foreign Bdy General Chief complaint: Skin/Abscess/Foreign Body Stated complaint: Back pain, bed sores Time Seen by Provider: 07/26/23 00:55 Source: patient Limitations: no limitations History of Present Illness HPI narrative: 47-year-old female presents with significant pain in the buttock area. Patient has been homeless and has been having difficulty having this people sister with changing. She is wheelchair bound. She has developed sores in her buttock area which has been very painful. The pain is described as severe. Worse with movement. Pain does not radiate. She denies any fevers or chills. She did have some medication for some left shoulder pain. This was naproxen. Did assist with some of her symptoms. Related Data Home Medications Medication Instructions Recorded Confirmed clonazepam 1 mg tablet 1 mg PO BID 06/23/23 06/23/23 zolpidem 10 mg tablet 10 mg PO BEDTIME 06/23/23 06/23/23 Previous Rx's Medication Instructions Recorded naproxen 500 mg tablet 500 mg PO BID 7 days #14 tabs 06/24/23 baclofen 10 mg tablet 10 mg PO BID #20 tabs 07/13/23 Allergies Allergy/AdvReac Type Severity Reaction Status Date / Time codeine [Codeine] Allergy Intermediate ITCHING, Verified 06/22/23 22:02 VOMTING, THROAT SWELLS tramadol [TRAMADOL] Allergy Intermediate BODY Verified 06/22/23 22:02 SWELLING Review of Systems Review of Systems: CONSTITUTIONAL: Denies weight loss, fever and chills. HEENT: Denies changes in vision and hearing. RESPIRATORY: Denies SOB and cough. CV: Denies palpitations no CP. GI: Denies abdominal pain, nausea, vomiting and diarrhea. : Denies dysuria and urinary frequency. MSK: + myalgia and joint pain. SKIN: Denies rash and pruritus. NEUROLOGICAL: Denies headache and syncope. PSYCHIATRIC: Denies recent changes in mood. Denies anxiety and depression. All other ROS are negative unless in HPI PMFSH Past Medical History Medical History Asthma Drug abuse in remission Polysubstance (including opioids) dependence, daily use Social History Social History Alcohol intake: never Patient Tobacco Use Status: Current everyday Tobacco user Smoked in Last 30 Days: Yes Use of substances other than those prescribed or required for medical reasons: No Substance Use Type: Heroin Advance Directives Date on File: 06/16/23 Patient : No Physical Exam Vital Signs: Vital Signs: Last Vital Signs Temp 98.2 F 07/26/23 00:59 Pulse 103 H 07/26/23 00:59 Resp 13 07/26/23 00:59 BP 126/81 07/26/23 00:59 Pulse Ox 97 07/26/23 00:59 O2 Del Method Room Air 07/26/23 00:59 BMI result Body Mass Index 16.9 GEN: Well developed, no acute distress, alert, oriented HEENT: Normocephalic, atraumatic, normal external ears, nose appears normal, no oropharyngeal edema or exudates Eyes: Normal to appearance Neck: Supple, no lymphadenopathy Respiratory: Talks in complete sentences, no respiratory distress, clear to auscultation bilaterally Cardiovascular: Regular rate and rhythm, no murmurs rubs or gallops, tachycardic Abdomen: Soft, nontender, nondistended, no guarding, no rebound Back: No CVA tenderness Extremities: No clubbing cyanosis or edema chronic deformities Neurologic: No focal neurologic deficits, cranial nerves 2-12 intact, strength is 5/5 bilaterally Skin: No rash Course Reevaluation(s) Reevaluation #1: Patient will be signed out to the oncoming provider Dr. Gonzalez. Laboratory analysis is still pending. I suspect patient will warrant hospitalization for significant wound. Time: 01:59 Medical Decision Making Medical Decision Making [facility] Narrative: 47-year-old female with history of substance abuse presents with large decubitus ulcer. Does not appear to be overtly infected. However, will check a CBC, CRP and ESR. Due to patient's circumstances, I do believe patient would be best served by inpatient hospitalization. Once laboratory results have returned discussed with hospitalist to determine appropriate disposition. Differential Diagnosis Differential Diagnoses: The differential diagnosis associated with the presentation includes (Decubitus ulcer, cellulitis, abscess, osteomyelitis) Admission/Observation Consideration of admission/observation: Escalation of care including admission/observation considered Consult Healthcare Provider Management of the patient was discussed with: Hospitalist Lab Data [facility] Lab Attestation statement: I reviewed the patient's lab results. Independent Interpretation I performed an independent interpretation of an: EKG (Normal sinus rhythm heart rate 91, no acute ST elevations or depressions, possible LVH, nonspecific ST T wave changes) Prescription Management I considered prescription management with: Pain Medication and Antibiotic Discharge Plan Discharge Clinical Impression: Decubitus ulcer Patient Disposition: Still a Patient Prescriptions: No Action clonazepam 1 mg Tablet 1 mg PO BID zolpidem 10 mg Tablet 10 mg PO BEDTIME naproxen 500 mg tablet 500 mg PO BID 7 Days Qty: 14 0RF baclofen 10 mg tablet 10 mg PO BID Qty: 20 0RF
--- NOTE | 2023-07-26 01:08 | ECG_ITS ---
Test Reason : CHEST PAIN Blood Pressure : / mmHG Vent. Rate : 091 BPM Atrial Rate : 091 BPM P-R Int : 122 ms QRS Dur : 094 ms QT Int : 604 ms P-R-T Axes : 058 030 067 degrees QTc Int : 742 ms Normal sinus rhythm Possible Left atrial enlargement Nonspecific ST and T wave abnormality Prolonged QT Abnormal ECG When compared with ECG of 21-JAN-2023 10:51, Nonspecific T wave abnormality no longer evident in Inferior leads T wave inversion no longer evident in Anterior leads QT has lengthened Referred By: Chavo Pierre Electronically Signed By:RICCO HENDRICKSON
--- NOTE | 2023-07-26 02:05 | PC.NURSE ---
Failed attempts to establish an IV line by three nurses. aware. Will do an U/S IV. Pt aware.
[2023-07-26] MEDS: Ketorolac Tromethamine 15 MG/ML VIAL IVPUSH (02:15)
[2023-07-26 02:21] LABS: MANUAL DIFF FLAG NO
[2023-07-26 02:26] LABS: Basophils Absolute Auto 0.1 X10*3/uL (0.0-0.2); Basophils Percent Auto 0.5 % (0-2); Eosinophils Absolute Auto 0.3 X10*3/uL (0.0-0.4); Eosinophils Percent Auto 2.5 % (0-4); Hematocrit 32.5 % (37.0-47.0); Hemoglobin 10.1 g/dl (12.0-16.0); Imm Gran Abs Auto 0.06 X10*3/uL (0.00-0.03); Imm Gran Pct Auto 0.5 % (0.0-0.4); Lymphocytes Absolute Auto 1.8 X10*3/uL (1.2-4.9); Lymphocytes Percent Auto 16.1 % (20-40); Mean Corpuscular HGB Conc 31.1 g/dl (31.0-35.0); Mean Corpuscular Volume 77.4 fL (80.0-98.0); Mean Platelet Volume 10.1 fL (9.4-12.3); Monocytes Absolute Auto 0.9 X10*3/uL (0.1-1.2); Monocytes Percent Auto 8.1 % (2-11); Neutrophils Percent Auto 72.3 % (45-73); Platelet Count 347 X10*3/uL (160-400); Red Cell Distribution Width 17.1 % (11.0-16.0)
[2023-07-26 02:41] LABS: Alanine Aminotransferase 10 U/L (0-31); Albumin Level 3.2 g/dL (3.5-5.0); Alkaline Phosphatase 129 U/L (39-117); Anion Gap 17 (12-20); Aspartate Amino Transferase 16 U/L (5-31); Bilirubin Total 0.4 mg/dL (0.0-1.0); Blood Urea Nitrogen 17 mg/dL (9-16); C Reactive Protein 30.55 mg/dL (< or = 0.50); Calcium 9.6 mg/dL (8.4-10.2); Carbon Dioxide 23 mmol/L (22-29); Chloride 98 mmol/L (96-108); Creatinine Clr Calc Pharmacy 63.9; Estimated Glomerular Filt Rate > 60; Ethanol < 10 mg/dL; Glucose Random 95 mg/dL (60-115); Sodium 135 mmol/L (135-145); Total Protein 7.6 g/dL (6.5-8.0)
[2023-07-26 03:00] LABS: Erythrocyte Sedimentation Rate 87 MM/HR (0-20)
[2023-07-26] MEDS: Potassium Chloride Packet 20 MEQ PACKET 40 MEQ PO (03:36)
[2023-07-26] MEDS: Piperacillin Sodium/Tazobactam 3.375 GM in 0.9 % Sodium Chloride 50 ML IV (03:42)
[2023-07-26] MEDS: HYDROmorphone HCl 1 MG/ML SYRINGE IVPUSH (03:57)
[2023-07-26] MEDS: vancomycin HCL 1,000 MG in 0.9 % Sodium Chloride 250 ML 270 MG IV (04:29)
[2023-07-26] MEDS: 0.9 % Sodium Chloride 1,000 ML 999 ML IVCONT (05:24)
--- NOTE | 2023-07-26 05:28 | PM.IMHP ---
History of Present Illness Date of Service: 07/26/23 Chief Complaint: Wound This is a 47-year-old female with pertinent history of mood disorder who presents to the emergency department for pain and evaluation of wound in the right buttock area. Patient states it has been ongoing for the last 1 week and has been progressive. For patient states she noticed purulent foul-smelling drainage that started 3 days ago. Patient is homeless and has been having difficulty with it. She is wheelchair-bound. She denies any fevers or chills. Did not take any antibiotics for it. No chest discomfort, palpitations, shortness of breath, abdominal pain, changes in urinary or bowel habits. In the emergency department, infected decubitus ulcer seen Review of Systems Constitutional: Constitutional: Reports fatigue Cardiovascular: Cardiovascular: Reports no additional cardiovascular complaints Respiratory: Respiratory: Reports no additional respiratory complaints Gastrointestinal: Gastrointestinal: Reports no additional gastrointestinal complaints Genitourinary: Genitourinary: Reports no additional female genitourinary complaints Endocrine: Endocrine: Reports fatigue [facility] Medical History Asthma Drug abuse in remission Polysubstance (including opioids) dependence, daily use Pertinent family history: No family history of early CAD Social History Alcohol intake: never Patient Tobacco Use Status: Former Tobacco user Smoked in Last 30 Days: Yes Use of substances other than those prescribed or required for medical reasons: No Substance Use Type: Heroin Advance Directives: Yes Advance Directives on File: Yes Advance Directives Date on File: 06/16/23 Nutrition Risks: No Nutritional Risk Patient : No Meds Allergies Allergy/AdvReac Type Severity Reaction Status Date / Time codeine [Codeine] Allergy Intermediate ITCHING, Verified 06/22/23 22:02 VOMTING, THROAT SWELLS tramadol [TRAMADOL] Allergy Intermediate BODY Verified 06/22/23 22:02 SWELLING Active Medications: Current Medications Sodium Chloride (Ns) 1,000 mls @ 999 mls/hr IVCONT .Q1H1M ONE Stop: 07/26/23 06:12 Last Admin: 07/26/23 05:24 Dose: 999 mls/hr Pharmacy Consult (Consult Rx Vancomycin Dosing) 1 each MISCELLANE DAILY PRN PRN Reason: Consult order Home Medications Medication Instructions Recorded Confirmed Last Taken Type clonazepam 1 mg tablet 1 mg PO BID 06/23/23 06/23/23 Unknown History zolpidem 10 mg tablet 10 mg PO BEDTIME 06/23/23 06/23/23 Unknown History Physical Exam Vital Signs and Narrative: Vital Signs: Last Vital Signs Temp 99.0 F 07/26/23 02:00 Pulse 89 07/26/23 04:37 Resp 12 07/26/23 04:37 BP 98/44 L 07/26/23 04:37 Pulse Ox 93 07/26/23 02:00 O2 Del Method Room Air 07/26/23 02:00 BMI result Body Mass Index 16.9 Middle-aged female lying in bed in no distress Neck supple, no JVD Regular rate and rhythm, S1-S2 heard Regular breath sounds bilaterally, no wheezing or crackles appreciated Abdomen soft nontender, no guarding, no rigidity Patient is awake, alert and oriented to self, place, time and person ; no focal motor deficit Skin: Right decubitus ulcer seen with serosanguineous drainage Psych: Normal mood Results Labs 07/26/23 02:15 07/26/23 02:15 Labs: Laboratory Results - last 24 hr 07/26/23 07/26/23 07/26/23 02:15 02:15 02:15 MCV 77.4 L MCH 24.0 L MCHC 31.1 RDW 17.1 H Plt Count 347 D MPV 10.1 Immature Gran % (Auto) 0.5 H Neut % (Auto) 72.3 Lymph % (Auto) 16.1 L Dodge % (Auto) 8.1 Eos % (Auto) 2.5 Baso % (Auto) 0.5 Lymph # (Auto) 1.8 Dodge # (Auto) 0.9 Eos # (Auto) 0.3 Baso # (Auto) 0.1 Abs Immat Gran (auto) 0.06 H Absolute Neuts (auto) 8.0 Absolute Nucleated RBC 0.000 Nucleated RBC % (auto) 0.0 ESR Anion Gap 17 Estim Creat Clear Calc 63.9 Estimated GFR > 60 Random Glucose 95 Lactic Acid 1.0 Calcium 9.6 Total Bilirubin 0.4 AST 16 ALT 10 Alkaline Phosphatase 129 H C-Reactive Protein 30.55 H Total Protein 7.6 Albumin 3.2 L Ethyl Alcohol < 10 07/26/23 02:15 MCV MCH MCHC RDW Plt Count MPV Immature Gran % (Auto) Neut % (Auto) Lymph % (Auto) Dodge % (Auto) Eos % (Auto) Baso % (Auto) Lymph # (Auto) Dodge # (Auto) Eos # (Auto) Baso # (Auto) Abs Immat Gran (auto) Absolute Neuts (auto) Absolute Nucleated RBC Nucleated RBC % (auto) ESR 87 H Anion Gap Estim Creat Clear Calc Estimated GFR Random Glucose Lactic Acid Calcium Total Bilirubin AST ALT Alkaline Phosphatase C-Reactive Protein Total Protein Albumin Ethyl Alcohol Assessment and Plan (1) Decubitus ulcer: Status: Acute Plan This is a 47-year-old female with pertinent history of mood disorder who presents to the emergency department for pain and evaluation of wound in the right buttock area. #. Infected decubitus ulcer. Will admit patient and initiate empiric IV antibiotics. Imaging without osteomyelitis. Consulting general surgery for assistance. No sepsis. Resuscitated with IV crystalloids. #. Homelessness. Consulted telephonic case manager for assistance #. Microcytic anemia. Obtaining iron panel. Hemoglobin above transfusion threshold #. Hypokalemia. Repleted Med rec pending DVT prophylaxis: Lovenox Full code Admit as inpatient and will require two night minimum hospital stay for IV antibiotics Time Spent With Patient Time: Total time managing care of this patient today ____ minutes. Quality Stroke Does the patient have a stroke diagnosis?: No VTE Prior VTE?: No VTE Risk Level:: Medical - moderate - high VTE Device Contraindication: Treatment Not Indicated VTE Drug Contraindication: N/A - Med Ordered
[2023-07-26] MEDS: 0.9 % Sodium Chloride 1,000 ML 999 ML IV (06:05)
[2023-07-26] MEDS: Enoxaparin Sodium 40 MG/0.4 ML SYRINGE SUBCUT (06:05)
[2023-07-26 06:49] LABS: Iron < 6 mcg/dL (30-160); Unsaturated Iron Binding 170 ug/dL
--- NOTE | 2023-07-26 06:50 | PHA.PROG ---
Admission Date/Time: July 26, 2023 05:26 Indication: skin Weight in k.8 kg Adjusted body weight in K.78 Melvin body weight in K.1 Obesity Dosing Indication % IBW: NOT OBESE Serum Creatinine - Last 168 Hours 07/26/23 02:15 Creatinine 0.71 Estimated CrCl and GFR - Last 168 Hours 07/26/23 02:15 Estim Creat Clear Calc 63.9 Estimated GFR > 60 Vancomycin Loading Dose: 1000 mg Current Vancomycin Dosing Regimen: 750 mg Q12H Vancomycin Monitoring using AUC goal of 400 - 600 range with trough as surrogate marker: 514 Date and Time for next Vancomycin Level to be drawn: 07/28 @1400 Pharmacist Comments on Vancomycin Plan: Patient received proper load of 1 gram, patient is tiny! Vancomycin dosing will take advantage of [employer] as a clinical decision support tool that uses Bayesian modeling to calculate individual patient's pharmacokinetic parameters and forecast the patient's drug concentration time course with the target goal AUC 24 range of 400 - 600 mg/L/hr.
--- NOTE | 2023-07-26 08:48 | PHA.MEDREC ---
Pharmacy Consult ? Medication Reconciliation Pharmacy has completed the medication reconciliation. Patient reports finishing the baclofen prescription 3-4 days ago. No longer uses naproxen, and [employer] was checked to verify no recent controls filled.
--- NOTE | 2023-07-26 09:33 | HO.PM.IMPN ---
Subjective Subjective Date of Service: 07/26/23 Interval History: fatigue Physical Exam Vital Signs: Vital Signs: Last Vital Signs Temp 99.0 F 07/26/23 02:00 Pulse 89 07/26/23 04:37 Resp 12 07/26/23 04:37 BP 98/44 L 07/26/23 04:37 Pulse Ox 93 07/26/23 02:00 O2 Del Method Room Air 07/26/23 02:00 BMI result Body Mass Index 16.9 alert, frail, ill appearing, malnourished, large decubitus ulcer (see ed pic), paraplegia Objective Data Active Medications Acetaminophen (Acetaminophen 325 Mg Tablet) 650 mg PO Q6H PRN PRN Reason: Pain, Mild (Pain Scale 1-3) Enoxaparin Sodium (Enoxaparin Sodium 40 Mg/0.4 Ml Syringe) 40 mg SUBCUT Q24H [facility] Last Admin: 07/26/23 06:05 Dose: 40 mg Documented By: ABDIEL Piperacillin Sod/Tazobactam (Sod 4.5 gm/ Sodium Chloride) 100 mls @ 200 mls/hr IV Q6H [facility] Vancomycin HCl 750 mg/ Sodium (Chloride) 265 mls @ 265 mls/hr IV Q12H [facility] Melatonin (Melatonin 3 Mg Tablet) 6 mg PO BEDTIME PRN PRN Reason: Insomnia Ondansetron HCl (Ondansetron Hcl 4 Mg/2 Ml Vial) 4 mg IVPUSH Q8H PRN PRN Reason: Nausea and Vomiting Pharmacy Consult (Consult Rx Vancomycin Dosing) 1 each MISCELLANE DAILY PRN PRN Reason: Consult order Sodium Chloride (0.9 % Sodium Chloride Flush 3 Ml Syringe) 3 ml IVFLUSH QSHIFT [facility] Last Admin: 07/26/23 07:01 Dose: Not Given Documented By: SRIKANTH Non-Admin Reason: Med Not Available Labs 07/26/23 02:15 07/26/23 02:15 Labs: Laboratory Results - last 24 hr 07/26/23 07/26/23 07/26/23 02:15 02:15 02:15 MCV 77.4 L MCH 24.0 L MCHC 31.1 RDW 17.1 H Plt Count 347 D MPV 10.1 Immature Gran % (Auto) 0.5 H Neut % (Auto) 72.3 Lymph % (Auto) 16.1 L Davidson % (Auto) 8.1 Eos % (Auto) 2.5 Baso % (Auto) 0.5 Lymph # (Auto) 1.8 Davidson # (Auto) 0.9 Eos # (Auto) 0.3 Baso # (Auto) 0.1 Abs Immat Gran (auto) 0.06 H Absolute Neuts (auto) 8.0 Absolute Nucleated RBC 0.000 Nucleated RBC % (auto) 0.0 ESR Anion Gap 17 Estim Creat Clear Calc 63.9 Estimated GFR > 60 Random Glucose 95 Lactic Acid 1.0 Calcium 9.6 Iron < 6 L TIBC < 176 L % Saturation TNP Unsat Iron Binding 170 Total Bilirubin 0.4 AST 16 ALT 10 Alkaline Phosphatase 129 H C-Reactive Protein 30.55 H Total Protein 7.6 Albumin 3.2 L Ethyl Alcohol < 10 07/26/23 02:15 MCV MCH MCHC RDW Plt Count MPV Immature Gran % (Auto) Neut % (Auto) Lymph % (Auto) Davidson % (Auto) Eos % (Auto) Baso % (Auto) Lymph # (Auto) Davidson # (Auto) Eos # (Auto) Baso # (Auto) Abs Immat Gran (auto) Absolute Neuts (auto) Absolute Nucleated RBC Nucleated RBC % (auto) ESR 87 H Anion Gap Estim Creat Clear Calc Estimated GFR Random Glucose Lactic Acid Calcium Iron TIBC % Saturation Unsat Iron Binding Total Bilirubin AST ALT Alkaline Phosphatase C-Reactive Protein Total Protein Albumin Ethyl Alcohol Assessment and Plan (1) Decubitus ulcer: Status: Acute Plan 44F PMH polysubstance dependence complicated by history of cervical epidural MRSA abscess, cord compression, paraplegia, presented with worsening decubitus ulcer. infected decubitus ulcer vanc, zosyn, surgery eval, id eval, follow up cultures paraplegia due to history of cervical epidural mrsa abscess with cord compression repositioning polysubtance dependence no longer on methadone moderate protein calorie malnutrition dvt prophylaxis - lovenox full code reason for continued hospitalization:iv abx for significant infeciton at risk for sepsis Time Spent With Patient Time: Total time managing care of this patient today ____ minutes. Quality Stroke Does the patient have a stroke diagnosis?: No VTE Prior VTE?: No VTE Risk Level:: Medical - moderate - high VTE Device Contraindication: Treatment Not Indicated VTE Drug Contraindication: N/A - Med Ordered
--- NOTE | 2023-07-26 09:41 | P.CONGS_ITS ---
History of Present Illness Consult details Consult date: 07/26/23 Narrative: The patient is a 47-year-old homeless woman who is wheelchair-bound who presented with a large sacral decubitus. She was admitted by the Medical Service and I was asked to evaluate the decubitus for possible debridement. The patient reports several social issues. She has noted pain for an unclear number of weeks. Review of Systems Review of Systems: Yes all other systems are reviewed and are negative Constitutional: Constitutional: Reports as per [facility] Past Medical History Medical History Asthma Drug abuse in remission Polysubstance (including opioids) dependence, daily use Social History Social History Alcohol intake: never Patient Tobacco Use Status: Former Tobacco user Smoked in Last 30 Days: Yes Use of substances other than those prescribed or required for medical reasons: No Substance Use Type: Heroin Advance Directives: Yes Advance Directives on File: Yes Advance Directives Date on File: 06/16/23 Nutrition Risks: No Nutritional Risk Patient : No Meds Allergies Allergy/AdvReac Type Severity Reaction Status Date / Time codeine [Codeine] Allergy Intermediate ITCHING, Verified 06/22/23 22:02 VOMTING, THROAT SWELLS tramadol [TRAMADOL] Allergy Intermediate BODY Verified 06/22/23 22:02 SWELLING Active Medications: Current Medications Acetaminophen (Acetaminophen 325 Mg Tablet) 650 mg PO Q6H PRN PRN Reason: Pain, Mild (Pain Scale 1-3) Enoxaparin Sodium (Enoxaparin Sodium 40 Mg/0.4 Ml Syringe) 40 mg SUBCUT Q24H [facility] Last Admin: 07/26/23 06:05 Dose: 40 mg Piperacillin Sod/Tazobactam (Sod 4.5 gm/ Sodium Chloride) 100 mls @ 200 mls/hr IV Q6H [facility] Vancomycin HCl 750 mg/ Sodium (Chloride) 265 mls @ 265 mls/hr IV Q12H [facility] Melatonin (Melatonin 3 Mg Tablet) 6 mg PO BEDTIME PRN PRN Reason: Insomnia Ondansetron HCl (Ondansetron Hcl 4 Mg/2 Ml Vial) 4 mg IVPUSH Q8H PRN PRN Reason: Nausea and Vomiting Pharmacy Consult (Consult Rx Vancomycin Dosing) 1 each MISCELLANE DAILY PRN PRN Reason: Consult order Sodium Chloride (0.9 % Sodium Chloride Flush 3 Ml Syringe) 3 ml IVFLUSH QSHIFT [facility] Last Admin: 07/26/23 07:01 Dose: Not Given Home Medications Medication Instructions Recorded Confirmed Last Taken Type No Known Home Meds 07/26/23 07/26/23 Unknown History Physical Exam Vital Signs: Vital Signs: Last Vital Signs Temp 99.0 F 07/26/23 02:00 Pulse 89 07/26/23 04:37 Resp 12 07/26/23 04:37 BP 98/44 L 07/26/23 04:37 Pulse Ox 93 07/26/23 02:00 O2 Del Method Room Air 07/26/23 02:00 BMI result Body Mass Index 16.9 Results Labs 07/26/23 02:15 07/26/23 02:15 Labs: Abnormal lab results 07/26/23 07/26/23 07/26/23 Range/Units 02:15 02:15 02:15 WBC 11.0 H (4.8-10.8) X10*3/uL Hgb 10.1 L (12.0-16.0) g/dl Hct 32.5 L (37.0-47.0) % MCV 77.4 L (80.0-98.0) fL MCH 24.0 L (27.0-33.0) pg RDW 17.1 H (11.0-16.0) % Immature Gran % (Auto) 0.5 H (0.0-0.4) % Lymph % (Auto) 16.1 L (20-40) % Abs Immat Gran (auto) 0.06 H (0.00-0.03) X10*3/uL ESR 87 H (0-20) MM/HR Potassium 3.0 L D (3.3-5.1) mmol/L BUN 17 H (9-16) mg/dL Iron < 6 L (30-160) mcg/dL TIBC < 176 L (228-428) mcg/dL Alkaline Phosphatase 129 H (39-117) U/L C-Reactive Protein 30.55 H (< or = 0.50) mg/dL Albumin 3.2 L (3.5-5.0) g/dL Short CBC 07/26/23 Range/Units 02:15 WBC 11.0 H (4.8-10.8) X10*3/uL Hgb 10.1 L (12.0-16.0) g/dl Hct 32.5 L (37.0-47.0) % Plt Count 347 D (160-400) X10*3/uL BMP 07/26/23 02:15 Sodium 135 Potassium 3.0 L D Chloride 98 Carbon Dioxide 23 BUN 17 H Creatinine 0.71 Calcium 9.6 Liver Function 07/26/23 Range/Units 02:15 Total Bilirubin 0.4 (0.0-1.0) mg/dL AST 16 (5-31) U/L ALT 10 (0-31) U/L Alkaline Phosphatase 129 H (39-117) U/L Albumin 3.2 L (3.5-5.0) g/dL All other labs normal. Imaging CT scan - pelvis: report reviewed and image reviewed Assessment and Plan (1) Decubitus ulcer: Status: Acute (2) Cocaine use disorder: Status: Acute (3) Opioid use disorder: Status: Acute (4) Anemia: Status: Acute (5) UTI (urinary tract infection): Status: Acute (6) COPD exacerbation: Status: Acute Plan Options regarding management including continued observation verses bedside debridement were discussed with the patient and apparently understood. Given the risk of worsening infection that could lead to sepsis, I recommended a bedside debridement with the inherent risks of bleeding, infection, need to repeat the procedure as necrotic tissue continues to define itself. Patient seemed understand her options and wanted to proceed. PROCEDURE NOTE Following informed consent, the patient was turned in left lateral decubitus position with the help of nurse and an aide. Sharp dissection through the necrotic skin, subcutaneous tissue and muscle was performed with bleeding from the deeper, viable tissue. The area was irrigated with sterile saline and packed with Kerlix/saline. Patient tolerated the procedure well. See orders for dressing changes. Time Spent With Patient Time: Total time managing care of this patient today ____ minutes. Procedures Date of Service Date of Service: 07/26/23
[2023-07-26] MEDS: Piperacillin Sodium/Tazobactam 4.5 GM in 0.9 % Sodium Chloride 100 ML IV ×3 (10:48→21:48)
--- NOTE | 2023-07-26 10:59 | PC.NURSE ---
assumed care of pt at 0700. pt a&o x4, calm, and cooperative. pt reporting 10/10 left upper back/rib pain and 10/10 pain to her bottom. pt medicated per jan. given turkey sandwich and lani prema per pt request. pt notified this RN that she needs to take her methadone and missed her dose yesterday. pt sts gets methadone from [facility] on [facility] in [place]. this rn called x2 for methadone verification and left message. awaiting call back for verification.
--- NOTE | 2023-07-26 11:17 | PC.NURSE ---
purewick placed for pt comfort. awaiting urine output for UA
--- NOTE | 2023-07-26 11:57 | PC.NURSE ---
called [facility] 2x again. no answer. awaiting call back from previous message.
[2023-07-26] MEDS: HYDROmorphone HCl 0.5 MG/0.5 ML SYRINGE IVPUSH ×3 (12:35→21:49)
--- NOTE | 2023-07-26 12:55 | PC.NURSE ---
pt R buttocks ulcer debrided by Dr. Emerson. bed pad saturated with wound discharge. bed pad and pt hospital gown changed.
--- NOTE | 2023-07-26 13:21 | PC.NURSE ---
pt has BL LE swelling with +1 pitting edema. hospitalist aware and sts it's 3rd spacing from malnutrition.
[2023-07-26] MEDS: vancomycin HCL 750 MG in 0.9 % Sodium Chloride 250 ML 265 MG IV (16:42)
[2023-07-26] MEDS: 0.9 % Sodium Chloride Flush 3 ML SYRINGE IVFLUSH (17:58)
[2023-07-26] MEDS: Acetaminophen 325 MG TABLET 650 MG PO (21:48)
[2023-07-26] MEDS: Baclofen 10 MG TABLET PO (21:48)
[2023-07-27 02:28] LABS: Amphetamine Screen Urine Not Detected (Not Detect); Barbiturates, Urine Not Detected (Not Detect); Benzodiazepines Screen Urine Not Detected (Not Detect); Cannabinoid Screen Urine Not Detected (Not Detect); Cocaine Screen Urine POSITIVE (Not Detect); Fentanyl, urine POSITIVE (Not Detect); Opiate Screen Urine POSITIVE (Not Detect); Phencyclidine Screen Urine Not Detected (Not Detect)
[2023-07-27] MEDS: HYDROmorphone HCl 0.5 MG/0.5 ML SYRINGE IVPUSH ×4 (03:27→19:41)
[2023-07-27] MEDS: Piperacillin Sodium/Tazobactam 4.5 GM in 0.9 % Sodium Chloride 100 ML IV ×4 (03:28→23:23)
[2023-07-27 04:00] VITALS: BP 93/62; PULSE 84; RESP 18; TEMP 36.2; O2SAT 94
[2023-07-27] MEDS: vancomycin HCL 750 MG in 0.9 % Sodium Chloride 250 ML 265 MG IV (04:04)
[2023-07-27] MEDS: Enoxaparin Sodium 40 MG/0.4 ML SYRINGE SUBCUT (05:36)
[2023-07-27 07:47] VITALS: BP 102/66; PULSE 69; RESP 20; TEMP 36.4; O2SAT 95
[2023-07-27] MEDS: Baclofen 10 MG TABLET PO ×3 (08:21→21:49)
[2023-07-27] MEDS: 0.9 % Sodium Chloride Flush 3 ML SYRINGE IVFLUSH ×3 (08:24→19:50)
--- NOTE | 2023-07-27 08:42 | P.PNIM_ITS ---
Subjective Subjective Date of Service: 07/27/23 Interval History: improving Physical Exam Vital Signs: Vital Signs: Last Vital Signs Temp 97.6 F 07/27/23 07:47 Pulse 69 07/27/23 07:47 Resp 20 07/27/23 07:47 BP 102/66 07/27/23 07:47 Pulse Ox 95 07/27/23 07:47 O2 Del Method Room Air 07/27/23 07:47 BMI result Body Mass Index 16.9 Objective Data Active Medications Acetaminophen (Acetaminophen 325 Mg Tablet) 650 mg PO Q6H PRN PRN Reason: Pain, Mild (Pain Scale 1-3) Last Admin: 07/26/23 21:48 Dose: 650 mg Documented By: ROMEO Baclofen (Baclofen 10 Mg Tablet) 10 mg PO TID [facility] Last Admin: 07/27/23 08:21 Dose: 10 mg Documented By: RICHARDSON Enoxaparin Sodium (Enoxaparin Sodium 40 Mg/0.4 Ml Syringe) 40 mg SUBCUT Q24H [facility] Last Admin: 07/27/23 05:36 Dose: 40 mg Documented By: ROMEO Hydromorphone HCl (Hydromorphone Hcl 0.5 Mg/0.5 Ml Syringe) 0.5 mg IVPUSH Q4H PRN; Protocol PRN Reason: moderate pain Last Admin: 07/27/23 08:21 Dose: 0.5 mg Documented By: RICHARDSON Piperacillin Sod/Tazobactam (Sod 4.5 gm/ Sodium Chloride) 100 mls @ 200 mls/hr IV Q6H [facility] Last Infusion: 07/27/23 04:08 Dose: 0 mls/hr Documented By: ROMEO Vancomycin HCl 750 mg/ Sodium (Chloride) 265 mls @ 265 mls/hr IV Q12H [facility] Last Infusion: 07/27/23 05:39 Dose: 0 mls/hr Documented By: ROMEO Melatonin (Melatonin 3 Mg Tablet) 6 mg PO BEDTIME PRN PRN Reason: Insomnia Ondansetron HCl (Ondansetron Hcl 4 Mg/2 Ml Vial) 4 mg IVPUSH Q8H PRN PRN Reason: Nausea and Vomiting Pharmacy Consult (Consult Rx Vancomycin Dosing) 1 each MISCELLANE DAILY PRN PRN Reason: Consult order Sodium Chloride (0.9 % Sodium Chloride Flush 3 Ml Syringe) 3 ml IVFLUSH QSHIFT [facility] Last Admin: 07/27/23 08:24 Dose: 3 ml Documented By: RICHARDSON Labs 07/26/23 02:15 07/26/23 02:15 Labs: Laboratory Results - last 24 hr 07/27/23 02:00 Urine Opiates Screen POSITIVE H Urine Fentanyl Screen POSITIVE H Ur Barbiturates Screen Not Detected Ur Phencyclidine Scrn Not Detected Ur Amphetamines Screen Not Detected U Benzodiazepines Scrn Not Detected Urine Cocaine Screen POSITIVE H U Marijuana (THC) Screen Not Detected Microbiology Microbiology Results: Microbiology 07/26/23 03:15 Blood Culture - Preliminary Blood - Venous No growth after 24 hours. 07/26/23 03:15 Blood Culture - Preliminary Blood - Venous No growth after 24 hours. Assessment and Plan (1) Decubitus ulcer: Status: Acute Plan 44F PMH polysubstance dependence complicated by history of cervical epidural MRSA abscess, cord compression, paraplegia, presented with worsening decubitus ulcer. infected decubitus ulcer continue vanc, zosyn, surgery appreciated - bedside debridement 07/26/23 id eval, follow up cultures paraplegia due to history of cervical epidural mrsa abscess with cord compression repositioning polysubtance dependence ?no longer on methadone addiction eval moderate protein calorie malnutrition dvt prophylaxis - lovenox full code reason for continued hospitalization:iv abx for significant infeciton at risk for sepsis Time Spent With Patient Time: Total time managing care of this patient today ____ minutes. Quality Stroke Does the patient have a stroke diagnosis?: No VTE Prior VTE?: No VTE Risk Level:: Medical - moderate - high VTE Device Contraindication: Treatment Not Indicated VTE Drug Contraindication: N/A - Med Ordered
[2023-07-27 09:36] LABS: Appearance Urine Cloudy; Color Urine Yellow; Glucose Urine UA Negative (Negative); Leukocyte Esterase Urine Large (3+) (Negative); Nitrite Urine Negative (Negative); PH 6.5 (5.0-9.0); UMIC TRIGGER UACC YES; Urine Blood Large (3+) (Negative); Urine Ketones Negative (Negative); Urine Protein 30 (1+) mg/dL (Neg-Trace)
--- NOTE | 2023-07-27 09:40 | PM.PNGS ---
Subjective Subjective Date of Service: 07/27/23 Patient reports: no new complaints, still having pain and tolerating a regular diet Interval history: The patient denies any new complaints. She was premedicated. Physical Exam Vital Signs: Vital Signs: Last Vital Signs Temp 97.6 F 07/27/23 07:47 Pulse 69 07/27/23 07:47 Resp 20 07/27/23 07:47 BP 102/66 07/27/23 07:47 Pulse Ox 95 07/27/23 07:47 O2 Del Method Room Air 07/27/23 07:47 BMI result Body Mass Index 16.9 On exam, she is nontoxic With the patient in left lateral decubitus position, additional tissue was removed from the subcutaneous tissue into the muscle. Bleeding was noted. Inferior to the decubitus, there is a yellow wax patch of skin measuring approximately 6 x 8 cm which the patient reports some sensation. This was left intact and the wound irrigated with sterile saline and redressed with Kerlix Objective Data Active Medications Acetaminophen (Acetaminophen 325 Mg Tablet) 650 mg PO Q6H PRN PRN Reason: Pain, Mild (Pain Scale 1-3) Last Admin: 07/26/23 21:48 Dose: 650 mg Documented By: ROMEO Baclofen (Baclofen 10 Mg Tablet) 10 mg PO TID [facility] Last Admin: 07/27/23 08:21 Dose: 10 mg Documented By: RICHARDSON Enoxaparin Sodium (Enoxaparin Sodium 40 Mg/0.4 Ml Syringe) 40 mg SUBCUT Q24H [facility] Last Admin: 07/27/23 05:36 Dose: 40 mg Documented By: ROMEO Hydromorphone HCl (Hydromorphone Hcl 0.5 Mg/0.5 Ml Syringe) 0.5 mg IVPUSH Q4H PRN; Protocol PRN Reason: moderate pain Last Admin: 07/27/23 08:21 Dose: 0.5 mg Documented By: RICHARDSON Piperacillin Sod/Tazobactam (Sod 4.5 gm/ Sodium Chloride) 100 mls @ 200 mls/hr IV Q6H [facility] Last Infusion: 07/27/23 04:08 Dose: 0 mls/hr Documented By: ROMEO Vancomycin HCl 750 mg/ Sodium (Chloride) 265 mls @ 265 mls/hr IV Q12H [facility] Last Infusion: 07/27/23 05:39 Dose: 0 mls/hr Documented By: ROMEO Melatonin (Melatonin 3 Mg Tablet) 6 mg PO BEDTIME PRN PRN Reason: Insomnia Ondansetron HCl (Ondansetron Hcl 4 Mg/2 Ml Vial) 4 mg IVPUSH Q8H PRN PRN Reason: Nausea and Vomiting Pharmacy Consult (Consult Rx Vancomycin Dosing) 1 each MISCELLANE DAILY PRN PRN Reason: Consult order Sodium Chloride (0.9 % Sodium Chloride Flush 3 Ml Syringe) 3 ml IVFLUSH QSHIFT [facility] Last Admin: 07/27/23 08:24 Dose: 3 ml Documented By: RICHARDSON Labs 07/26/23 02:15 07/26/23 02:15 Labs: Laboratory Results - last 24 hr 07/27/23 07/27/23 02:00 09:18 Urine Color Yellow Urine Appearance Cloudy Urine pH 6.5 Ur Specific [place] 1.020 Urine Protein 30 (1+) H Urine Glucose (UA) Negative Urine Ketones Negative Urine Blood Large (3+) H Urine Nitrite Negative Ur Leukocyte Esterase Large (3+) H Urine Opiates Screen POSITIVE H Urine Fentanyl Screen POSITIVE H Ur Barbiturates Screen Not Detected Ur Phencyclidine Scrn Not Detected Ur Amphetamines Screen Not Detected U Benzodiazepines Scrn Not Detected Urine Cocaine Screen POSITIVE H U Marijuana (THC) Screen Not Detected Microbiology Microbiology Results: Microbiology 07/26/23 03:15 Blood Culture - Preliminary Blood - Venous No growth after 24 hours. 07/26/23 03:15 Blood Culture - Preliminary Blood - Venous No growth after 24 hours. Procedures Date of Service Date of Service: 07/27/23 Progress Note: A&P Assessment and plan (1) Decubitus ulcer: Status: Acute (2) Cocaine use disorder: Status: Acute (3) Opioid use disorder: Status: Acute (4) UTI (urinary tract infection): Status: Acute Plan Continue wet to dry dressing changes at least Q shift and p.r.n.. Will reassess for additional debridement tomorrow. Time Spent With Patient Time: Total time managing care of this patient today ____ minutes. Quality Stroke Does the patient have a stroke diagnosis?: No VTE Prior VTE?: No VTE Risk Level:: Medical - moderate - high VTE Device Contraindication: Treatment Not Indicated VTE Drug Contraindication: N/A - Med Ordered
[2023-07-27 09:41] LABS: Bacteria Urine Trace (None Seen); RBC Urine >20 /HPF (0-2); Squamous Epithelial Cell Urine 0-2 /HPF (0-2); UACC Culture Trigger YES; WBC Urine >50 /HPF (0-5)
--- NOTE | 2023-07-27 10:47 | MHC.CM.PN ---
PT REPORTS SHE IS HOMELESS AND STAYS ON THE STREET SHE DENIES BEING CONNECTED TO ANY COMMUNITY SERVICES PT IS WHEEL CHAIR BOUND AT BASELINE SHE HAS NO PCP HCP ON FILE [id number] HANDOUT PROVIDED PT IS INTERESTED IN LONG-TERM PLACEMENT SHE MAY BE ELIGIBLE FOR [facility]N IF THEY ARE ACCEPTING NEW REFERRALS THEY MUST BE CALLED BY 09 THE DAY OF DC
[2023-07-27 11:08] LABS: MANUAL DIFF FLAG NO
[2023-07-27 11:13] LABS: Basophils Percent Auto 0.5 % (0-2); Eosinophils Absolute Auto 0.2 X10*3/uL (0.0-0.4); Eosinophils Percent Auto 2.7 % (0-4); Hematocrit 31.4 % (37.0-47.0); Hemoglobin 9.4 g/dl (12.0-16.0); Imm Gran Abs Auto 0.05 X10*3/uL (0.00-0.03); Imm Gran Pct Auto 0.8 % (0.0-0.4); Lymphocytes Absolute Auto 1.2 X10*3/uL (1.2-4.9); Lymphocytes Percent Auto 19.5 % (20-40); Mean Corpuscular HGB Conc 29.9 g/dl (31.0-35.0); Mean Corpuscular Hemoglobin 23.8 pg (27.0-33.0); Mean Corpuscular Volume 79.5 fL (80.0-98.0); Mean Platelet Volume 10.2 fL (9.4-12.3); Monocytes Absolute Auto 0.6 X10*3/uL (0.1-1.2); Monocytes Percent Auto 8.7 % (2-11); Neutrophils Absolute Auto 4.3 x10*3/uL (2.0-8.3); Neutrophils Percent Auto 67.8 % (45-73); Platelet Count 315 X10*3/uL (160-400); Red Blood Count 3.95 X10*6/uL (4.20-5.50); Red Cell Distribution Width 17.2 % (11.0-16.0); White Blood Count 6.4 X10*3/uL (4.8-10.8)
[2023-07-27 11:28] LABS: Anion Gap 12 (12-20); Blood Urea Nitrogen 6 mg/dL (9-16); Calcium 8.4 mg/dL (8.4-10.2); Carbon Dioxide 26 mmol/L (22-29); Chloride 107 mmol/L (96-108); Creatinine Clr Calc Pharmacy 75.7; Estimated Glomerular Filt Rate > 60; Glucose Random 84 mg/dL (60-115); Potassium 3.5 mmol/L (3.3-5.1); Sodium 141 mmol/L (135-145)
[2023-07-27 16:05] VITALS: BP 114/71; PULSE 96; RESP 18; TEMP 36.2; O2SAT 96
[2023-07-27 16:13] LABS: Vancomycin Random 10.3 mcg/mL (15-20)
--- NOTE | 2023-07-27 16:30 | HE.PHANOTE ---
Addendum entered by Jhonny Flores [facility] 07/27/23 16:54: CHANGED NEXT LEVEL TO 07/28 @ 1700 Original Note: VANCO DOSE ADJUSTMENT BASED ON SCR AND TROUGH OF 10.3 DOSE INCREASED TO 100 Q 12. NEXT LEVEL 07/29 @ 0500
[2023-07-27] MEDS: vancomycin HCL 1,000 MG in 0.9 % Sodium Chloride 250 ML 270 MG IV (19:42)
[2023-07-27 20:00] VITALS: BP 129/77; PULSE 84; RESP 18; TEMP 37.1; O2SAT 97
[2023-07-27] MEDS: Morphine Sulfate 4 MG/ML CARTRIDGE IVPUSH (21:48)
--- NOTE | 2023-07-27 23:53 | W.PM.IDCN ---
History of Present Illness Data of Consult Service Date: 07/27/23 Requesting physician: Jonel Wang Primary Care Provider: None Physician HPI Reason for consult: right decubitus ulcer She presents to hospital with right necrotic hip. She reports being in wheelchair and homeless. She has no fever or chills at this time. Review of Systems Review of Systems: Yes all other systems are reviewed and are negative PMFSH Past Medical History Medical History Asthma Drug abuse in remission Polysubstance (including opioids) dependence, daily use Family History Family history: reviewed and not pertinent Social History Social History Household Members: None Housing: Other Housing Other:: homeless Do you presently have visiting nurse or other home services: No Alcohol intake: never Patient Tobacco Use Status: Current someday Tobacco user Tobacco use type: Cigarette Cigarettes Per Day: 2 Substance Use Type: Former Substance User Advance Directives Date on File: 06/16/23 service: No Meds Allergies Allergy/AdvReac Type Severity Reaction Status Date / Time codeine [Codeine] Allergy Intermediate ITCHING, Verified 06/22/23 22:02 VOMTING, THROAT SWELLS tramadol [TRAMADOL] Allergy Intermediate BODY Verified 06/22/23 22:02 SWELLING Active Medications: Current Medications Acetaminophen (Acetaminophen 325 Mg Tablet) 650 mg PO Q6H PRN PRN Reason: Pain, Mild (Pain Scale 1-3) Last Admin: 07/26/23 21:48 Dose: 650 mg Baclofen (Baclofen 10 Mg Tablet) 10 mg PO TID [facility] Last Admin: 07/27/23 21:49 Dose: 10 mg Enoxaparin Sodium (Enoxaparin Sodium 40 Mg/0.4 Ml Syringe) 40 mg SUBCUT Q24H [facility] Last Admin: 07/27/23 05:36 Dose: 40 mg Hydromorphone HCl (Hydromorphone Hcl 0.5 Mg/0.5 Ml Syringe) 0.5 mg IVPUSH Q4H PRN; Protocol PRN Reason: moderate pain Last Admin: 07/27/23 19:41 Dose: 0.5 mg Piperacillin Sod/Tazobactam (Sod 4.5 gm/ Sodium Chloride) 100 mls @ 200 mls/hr IV Q6H [facility] Last Admin: 07/27/23 23:23 Dose: 200 mls/hr Vancomycin HCl 1,000 mg/ (Sodium Chloride) 270 mls @ 270 mls/hr IV Q12H [facility] Last Infusion: 07/27/23 21:43 Dose: Infused Melatonin (Melatonin 3 Mg Tablet) 6 mg PO BEDTIME PRN PRN Reason: Insomnia Ondansetron HCl (Ondansetron Hcl 4 Mg/2 Ml Vial) 4 mg IVPUSH Q8H PRN PRN Reason: Nausea and Vomiting Pharmacy Consult (Consult Rx Vancomycin Dosing) 1 each MISCELLANE DAILY PRN PRN Reason: Consult order Sodium Chloride (0.9 % Sodium Chloride Flush 3 Ml Syringe) 3 ml IVFLUSH QSHIFT [facility] Last Admin: 07/27/23 19:50 Dose: 3 ml Home Medications Medication Instructions Recorded Confirmed Last Taken Type No Known Home Meds 07/26/23 07/26/23 Unknown History Physical Exam Vital Signs: Vital Signs: Last Vital Signs Temp 98.8 F 07/27/23 20:00 Pulse 84 07/27/23 20:00 Resp 18 07/27/23 20:00 BP 129/77 07/27/23 20:00 Pulse Ox 97 07/27/23 20:00 O2 Del Method Room Air 07/27/23 20:00 BMI result Body Mass Index 16.9 Const: General: cooperative HEENT: Head: Yes normal to inspection Face and sinus: Yes normal facial exam Mouth: Normal oral and palatal mucosa present Teeth and gingiva: dentition normal Eyes: General: appearance normal, both eyes and all related structures Pupils: Equal, round and reactive pupils present Resp: Effort & Inspection: normal respiratory effort Cardio: Rate: regular rate Rhythm: regular rhythm GI: Palpation (GI): Soft to palpation and nontender : General: Yes no CVA tenderness Back/Spine/Pelvis: Back: no CVA tenderness Skin: Other: right hip necrosis Neuro: General: moves all extremities Cranial nerves: Yes Equal, round and reactive pupils present Extrem: General: Yes normal to inspection Psych: Appearance: grossly normal Results Labs 07/27/23 11:00 07/27/23 11:00 Labs: Short CBC 07/27/23 Range/Units 11:00 WBC 6.4 (4.8-10.8) X10*3/uL Hgb 9.4 L (12.0-16.0) g/dl Hct 31.4 L (37.0-47.0) % Plt Count 315 (160-400) X10*3/uL BMP 07/27/23 11:00 Sodium 141 Potassium 3.5 Chloride 107 Carbon Dioxide 26 BUN 6 L Creatinine 0.60 Calcium 8.4 D Urine 07/27/23 Range/Units 09:18 Urine Color Yellow Urine Appearance Cloudy Urine pH 6.5 (5.0-9.0) Ur Specific [place] 1.020 (1.005-1.025) Urine Protein 30 (1+) H (Neg-Trace) mg/dL Urine Glucose (UA) Negative (Negative) mg/dL Microbiology Microbiology Results: Microbiology 07/26/23 03:15 Blood - Venous Blood Culture - Preliminary No growth after 24 hours. 07/26/23 03:15 Blood - Venous Blood Culture - Preliminary No growth after 24 hours. Assessment and Plan (1) Decubitus ulcer: Status: Acute Decubitis with no definite organism There is no definite OM seen. (2) Cocaine use disorder: Status: Acute (3) Opioid use disorder: Status: Acute Plan Continue antibiotics such as Vancomycin and Piperacillin/tazobactam at this time. Probable Augmentin and Doxycycline for 10 days. Wound Clinic. Time Spent With Patient Time: Total time managing care of this patient today ____ minutes.
--- NOTE | 2023-07-28 | ECG_ITS ---
Test Reason : rn Blood Pressure : / mmHG Vent. Rate : 079 BPM Atrial Rate : 079 BPM P-R Int : 126 ms QRS Dur : 096 ms QT Int : 344 ms P-R-T Axes : 051 020 043 degrees QTc Int : 394 ms Normal sinus rhythm Possible Left atrial enlargement Nonspecific T wave abnormality Abnormal ECG When compared with ECG of 26-JUL-2023 01:55, QT has shortened Referred By: Shanelle Miller Electronically Signed By:RICCO HENDRICKSON
[2023-07-28 03:38] VITALS: BP 131/77; PULSE 77; RESP 18; TEMP 36.4; O2SAT 95
[2023-07-28] MEDS: Piperacillin Sodium/Tazobactam 4.5 GM in 0.9 % Sodium Chloride 100 ML IV ×4 (03:56→21:27)
[2023-07-28 06:58] VITALS: BP 136/93; PULSE 81; RESP 16; TEMP 36.6; O2SAT 97
[2023-07-28] MEDS: HYDROmorphone HCl 0.5 MG/0.5 ML SYRINGE IVPUSH ×3 (06:59→18:02)
[2023-07-28] MEDS: vancomycin HCL 1,000 MG in 0.9 % Sodium Chloride 250 ML 270 MG IV ×2 (07:01→20:04)
[2023-07-28] MEDS: 0.9 % Sodium Chloride Flush 3 ML SYRINGE IVFLUSH ×3 (07:09→21:29)
[2023-07-28] MEDS: Baclofen 10 MG TABLET PO ×3 (08:02→20:04)
--- NOTE | 2023-07-28 08:49 | P.PNIM_ITS ---
Subjective Subjective Date of Service: 07/28/23 Interval History: improving Physical Exam Vital Signs: Vital Signs: Last Vital Signs Temp 98 F 07/28/23 06:58 Pulse 81 07/28/23 06:58 Resp 16 07/28/23 06:58 BP 136/93 H 07/28/23 06:58 Pulse Ox 97 07/28/23 06:58 O2 Del Method Room Air 07/28/23 06:58 BMI result Body Mass Index 16.9 Const: General: cooperative HEENT: Head: Yes normal to inspection Face and sinus: Yes normal facial exam Mouth: Normal oral and palatal mucosa present Teeth and gingiva: d entition normal Eyes: General: appearance normal, both eyes and all related structures Pupils: Equal, round and reactive pupils present Resp: Effort & Inspection: normal respiratory effort Cardio: Rate: regular rate Rhythm: regular rhythm GI: Palpation (GI): Soft to palpation and nontender : General: Yes no CVA tenderness Back/Spine/Pelvis: Back: no CVA tenderness Skin: Other: right hip necrosis Neuro: General: moves all extremities Cranial nerves: Yes Equal, round and reactive pupils present Extrem: General: Yes normal to inspection Psych: Appearance: grossly normal Objective Data Active Medications Acetaminophen (Acetaminophen 325 Mg Tablet) 650 mg PO Q6H PRN PRN Reason: Pain, Mild (Pain Scale 1-3) Last Admin: 07/26/23 21:48 Dose: 650 mg Documented By: ROMEO Baclofen (Baclofen 10 Mg Tablet) 10 mg PO TID [facility] Last Admin: 07/28/23 08:02 Dose: 10 mg Documented By: RICHARDSON Enoxaparin Sodium (Enoxaparin Sodium 40 Mg/0.4 Ml Syringe) 40 mg SUBCUT Q24H [facility] Last Admin: 07/28/23 05:37 Dose: Not Given Documented By: SHALINI Non-Admin Reason: Patient Refused Hydromorphone HCl (Hydromorphone Hcl 0.5 Mg/0.5 Ml Syringe) 0.5 mg IVPUSH Q4H PRN; Protocol PRN Reason: moderate pain Last Admin: 07/28/23 06:59 Dose: 0.5 mg Documented By: RICHARDSON Piperacillin Sod/Tazobactam (Sod 4.5 gm/ Sodium Chloride) 100 mls @ 200 mls/hr IV Q6H [facility] Last Infusion: 07/28/23 04:39 Dose: 0 mls/hr Documented By: SHALINI Vancomycin HCl 1,000 mg/ (Sodium Chloride) 270 mls @ 270 mls/hr IV Q12H [facility] Last Infusion: 07/28/23 08:06 Dose: 0 mls/hr Documented By: RICHARDSON Melatonin (Melatonin 3 Mg Tablet) 6 mg PO BEDTIME PRN PRN Reason: Insomnia Ondansetron HCl (Ondansetron Hcl 4 Mg/2 Ml Vial) 4 mg IVPUSH Q8H PRN PRN Reason: Nausea and Vomiting Pharmacy Consult (Consult Rx Vancomycin Dosing) 1 each MISCELLANE DAILY PRN PRN Reason: Consult order Sodium Chloride (0.9 % Sodium Chloride Flush 3 Ml Syringe) 3 ml IVFLUSH QSHIFT [facility] Last Admin: 07/28/23 07:09 Dose: 3 ml Documented By: RICHARDSON Labs 07/27/23 11:00 07/27/23 11:00 Labs: Laboratory Results - last 24 hr 07/27/23 07/27/23 07/27/23 09:18 11:00 11:00 MCV 79.5 L MCH 23.8 L MCHC 29.9 L RDW 17.2 H Plt Count 315 MPV 10.2 Immature Gran % (Auto) 0.8 H Neut % (Auto) 67.8 Lymph % (Auto) 19.5 L [place] % (Auto) 8.7 Eos % (Auto) 2.7 Baso % (Auto) 0.5 Lymph # (Auto) 1.2 [place] # (Auto) 0.6 Eos # (Auto) 0.2 Baso # (Auto) 0.0 Abs Immat Gran (auto) 0.05 H Absolute Neuts (auto) 4.3 Absolute Nucleated RBC 0.000 Nucleated RBC % (auto) 0.0 Anion Gap 12 Estim Creat Clear Calc 75.7 Estimated GFR > 60 Random Glucose 84 Calcium 8.4 D Prealbumin Urine Color Yellow Urine Appearance Cloudy Urine pH 6.5 Ur Specific [place] 1.020 Urine Protein 30 (1+) H Urine Glucose (UA) Negative Urine Ketones Negative Urine Blood Large (3+) H Urine Nitrite Negative Ur Leukocyte Esterase Large (3+) H Urine RBC >20 H Urine WBC >50 H Ur Squamous Epith Cells 0-2 Urine Bacteria Trace Hyaline Casts 3-5 Random Vancomycin 07/27/23 07/27/23 11:00 15:39 MCV MCH MCHC RDW Plt Count MPV Immature Gran % (Auto) Neut % (Auto) Lymph % (Auto) [place] % (Auto) Eos % (Auto) Baso % (Auto) Lymph # (Auto) [place] # (Auto) Eos # (Auto) Baso # (Auto) Abs Immat Gran (auto) Absolute Neuts (auto) Absolute Nucleated RBC Nucleated RBC % (auto) Anion Gap Estim Creat Clear Calc Estimated GFR Random Glucose Calcium Prealbumin 6.0 L Urine Color Urine Appearance Urine pH Ur Specific [place] Urine Protein Urine Glucose (UA) Urine Ketones Urine Blood Urine Nitrite Ur Leukocyte Esterase Urine RBC Urine WBC Ur Squamous Epith Cells Urine Bacteria Hyaline Casts Random Vancomycin 10.3 L Microbiology Microbiology Results: Microbiology 07/26/23 03:15 Blood Culture - Preliminary Blood - Venous No growth after 48 hours. 07/26/23 03:15 Blood Culture - Preliminary Blood - Venous No growth after 48 hours. Assessment and Plan (1) Decubitus ulcer: Status: Acute Plan 44F PMH polysubstance dependence complicated by history of cervical epidural MRSA abscess, cord compression, paraplegia, presented with worsening decubitus ulcer. infected decubitus ulcer continue vanc, zosyn, surgery appreciated - bedside debridement 07/26/23 id appreciated - likely augmentin and doxy on discharge paraplegia due to history of cervical epidural mrsa abscess with cord compression repositioning polysubtance dependence ?no longer on methadone moderate protein calorie malnutrition dvt prophylaxis - lovenox full code reason for continued hospitalization:iv abx for significant infeciton at risk for sepsis Time Spent With Patient Time: Total time managing care of this patient today ____ minutes. Quality Stroke Does the patient have a stroke diagnosis?: No VTE Prior VTE?: No VTE Risk Level:: Medical - moderate - high VTE Device Contraindication: Treatment Not Indicated VTE Drug Contraindication: N/A - Med Ordered
--- NOTE | 2023-07-28 10:51 | PM.PNGS ---
Subjective Subjective Date of Service: 07/28/23 Interval history: The patient denies any interval change. She had just received Dilaudid and had eaten breakfast. She reports no difficulty breathing or shortness of breath and notes the same level of pain involving her right buttock. Physical Exam Vital Signs: Vital Signs: Last Vital Signs Temp 98 F 07/28/23 06:58 Pulse 81 07/28/23 06:58 Resp 16 07/28/23 06:58 BP 136/93 H 07/28/23 06:58 Pulse Ox 97 07/28/23 06:58 O2 Del Method Room Air 07/28/23 06:58 BMI result Body Mass Index 16.9 On exam, she is nontoxic With the patient in left lateral decubitus position, additional tissue was removed from the subcutaneous tissue into the muscle. Bleeding was noted. Inferior to the decubitus, there is a yellow wax patch of skin measuring approximately 7 x 10 cm which the patient reports some sensation. This was left intact and the wound irrigated with sterile saline and redressed with Kerlix At the inferior margin, there is a patch of waxy skin measuring 7 by 8 cm that has questionable viability, while the surfaces sloughing, the patient reports sensation to sharp debridement so this was left intact. Objective Data Active Medications Acetaminophen (Acetaminophen 325 Mg Tablet) 650 mg PO Q6H PRN PRN Reason: Pain, Mild (Pain Scale 1-3) Last Admin: 07/26/23 21:48 Dose: 650 mg Documented By: ROMEO Baclofen (Baclofen 10 Mg Tablet) 10 mg PO TID [facility] Last Admin: 07/28/23 08:02 Dose: 10 mg Documented By: RICHARDSON Enoxaparin Sodium (Enoxaparin Sodium 40 Mg/0.4 Ml Syringe) 40 mg SUBCUT Q24H [facility] Last Admin: 07/28/23 05:37 Dose: Not Given Documented By: SHALINI Non-Admin Reason: Patient Refused Hydromorphone HCl (Hydromorphone Hcl 0.5 Mg/0.5 Ml Syringe) 0.5 mg IVPUSH Q4H PRN; Protocol PRN Reason: moderate pain Last Admin: 07/28/23 06:59 Dose: 0.5 mg Documented By: RICHARDSON Piperacillin Sod/Tazobactam (Sod 4.5 gm/ Sodium Chloride) 100 mls @ 200 mls/hr IV Q6H [facility] Last Infusion: 07/28/23 10:27 Dose: 0 mls/hr Documented By: RICHARDSON Vancomycin HCl 1,000 mg/ (Sodium Chloride) 270 mls @ 270 mls/hr IV Q12H [facility] Last Infusion: 07/28/23 08:06 Dose: 0 mls/hr Documented By: RICHARDSON Melatonin (Melatonin 3 Mg Tablet) 6 mg PO BEDTIME PRN PRN Reason: Insomnia Ondansetron HCl (Ondansetron Hcl 4 Mg/2 Ml Vial) 4 mg IVPUSH Q8H PRN PRN Reason: Nausea and Vomiting Pharmacy Consult (Consult Rx Vancomycin Dosing) 1 each MISCELLANE DAILY PRN PRN Reason: Consult order Sodium Chloride (0.9 % Sodium Chloride Flush 3 Ml Syringe) 3 ml IVFLUSH QSHIFT [facility] Last Admin: 07/28/23 07:09 Dose: 3 ml Documented By: RICHARDSON Labs 07/27/23 11:00 07/27/23 11:00 Labs: Laboratory Results - last 24 hr 07/27/23 07/27/23 07/27/23 11:00 11:00 11:00 MCV 79.5 L MCH 23.8 L MCHC 29.9 L RDW 17.2 H Plt Count 315 MPV 10.2 Immature Gran % (Auto) 0.8 H Neut % (Auto) 67.8 Lymph % (Auto) 19.5 L [place] % (Auto) 8.7 Eos % (Auto) 2.7 Baso % (Auto) 0.5 Lymph # (Auto) 1.2 [place] # (Auto) 0.6 Eos # (Auto) 0.2 Baso # (Auto) 0.0 Abs Immat Gran (auto) 0.05 H Absolute Neuts (auto) 4.3 Absolute Nucleated RBC 0.000 Nucleated RBC % (auto) 0.0 Anion Gap 12 Estim Creat Clear Calc 75.7 Estimated GFR > 60 Random Glucose 84 Calcium 8.4 D Prealbumin 6.0 L Random Vancomycin 07/27/23 15:39 MCV MCH MCHC RDW Plt Count MPV Immature Gran % (Auto) Neut % (Auto) Lymph % (Auto) [place] % (Auto) Eos % (Auto) Baso % (Auto) Lymph # (Auto) [place] # (Auto) Eos # (Auto) Baso # (Auto) Abs Immat Gran (auto) Absolute Neuts (auto) Absolute Nucleated RBC Nucleated RBC % (auto) Anion Gap Estim Creat Clear Calc Estimated GFR Random Glucose Calcium Prealbumin Random Vancomycin 10.3 L Microbiology Microbiology Results: Microbiology 07/27/23 Unknown Urine Culture - Final Urine clean catch - Urine chin top No growth. 07/26/23 03:15 Blood Culture - Preliminary Blood - Venous No growth after 48 hours. 07/26/23 03:15 Blood Culture - Preliminary Blood - Venous No growth after 48 hours. Procedures Date of Service Date of Service: 07/28/23 Progress Note: A&P Assessment and plan (1) Decubitus ulcer: Status: Acute (2) Cocaine use disorder: Status: Acute (3) Opioid use disorder: Status: Acute (4) Anemia: Status: Acute Plan Continue saline wet to dries as ordered and p.r.n. Time Spent With Patient Time: Total time managing care of this patient today ____ minutes. Quality Stroke Does the patient have a stroke diagnosis?: No VTE Prior VTE?: No VTE Risk Level:: Medical - moderate - high VTE Device Contraindication: Treatment Not Indicated VTE Drug Contraindication: N/A - Med Ordered
[2023-07-28 11:36] VITALS: BMI 16.9
--- NOTE | 2023-07-28 11:50 | MHC.CLN ---
NUTRITION DIET=REGULAR. ADDING ENSURE TID TO PROMOTE NUTRITIONAL STATUS AND WOUND HEALING. SUPPLEMENT PROVIDES ADDITIONAL 1050 KCALS, 60 G PROTEIN. STAGE IV PRESSURE INJURY TO BUTTOCK. QUALIFIES MODERATELY MALNOURISHED IN THE CONTEXT OF SOCIAL BEHAVIORAL/ENVIRONMENTAL CIRCUMSTANCES. SIGNIFICANT WEIGHT LOSS AND THIRD SPACING NOTED. PATIENT IS HOMELESS, WITH PARAPLEGIA AND IS WC BOUND. FOLLOW FOR INTAKE AND WOUND HEALING.
--- NOTE | 2023-07-28 13:57 | HO.ADDICTPRO ---
Subjective Subjective Date of Service: 07/28/23 Reason For Visit: Back pain, bed sores Interim History: Patient currently medically admitted with decub ulcer. History of OUD and cocaine use, know to this press writer and ACS via previous visits to [facility]. During previous admissions or ED visits, patient reluctant to engage in treatment for VIANCA, however easily engaged in harm reduction discussions and stated she would follow up on her own with [facility] as she received methadone while at [facility]. Today, patient seen in room 379, awake, alert watching TV when this press writer arrived. Initially reporting that she was feeling fine . When this press writer inquired about withdrawal sx patient reported, yeah, I am supposed to be getting my methadone . She reports being engaged in treatment at [facility] and reports he dose is 100mg. She reports that she has also been using approx a bundle of heroin/fentanyl daily. When asked about withdrawal sx, she replied yes everything . Patient did not appear diaphoretic, restless, no loose stools. COW score from earlier this morning 1. Has been receiving Dilaudid PRN for pain. Review of Systems Constitutional: Reports as per HPI Mental Status Exam Mental Status Exam Patient Appearance: Appropriate Level of Consciousness: Awake and Alert Affect Description: Calm Diagnostics Vital Signs (24Hr): Vital Signs - 24 hr 07/27/23 16:05 07/27/23 20:00 07/28/23 03:38 Temperature 97.1 F 98.8 F 97.5 F Pulse Rate 96 84 77 Respiratory Rate 18 18 18 Blood Pressure 114/71 129/77 131/77 Pulse Oximetry 96 97 95 Oxygen Delivery Method Room Air Room Air Room Air 07/28/23 06:58 Temperature 98 F Pulse Rate 81 Respiratory Rate 16 Blood Pressure 136/93 H Pulse Oximetry 97 Oxygen Delivery Method Room Air BMI result Body Mass Index 16.9 Labs 07/27/23 11:00 07/27/23 11:00 Labs: Laboratory Results - last 48 hr 07/27/23 07/27/23 07/27/23 02:00 09:18 11:00 WBC 6.4 RBC 3.95 L Hgb 9.4 L Hct 31.4 L MCV 79.5 L MCH 23.8 L MCHC 29.9 L RDW 17.2 H Plt Count 315 MPV 10.2 Immature Gran % (Auto) 0.8 H Neut % (Auto) 67.8 Lymph % (Auto) 19.5 L [place] % (Auto) 8.7 Eos % (Auto) 2.7 Baso % (Auto) 0.5 Lymph # (Auto) 1.2 [place] # (Auto) 0.6 Eos # (Auto) 0.2 Baso # (Auto) 0.0 Abs Immat Gran (auto) 0.05 H Absolute Neuts (auto) 4.3 Absolute Nucleated RBC 0.000 Nucleated RBC % (auto) 0.0 Sodium Potassium Chloride Carbon Dioxide Anion Gap BUN Creatinine Estim Creat Clear Calc Estimated GFR Random Glucose Calcium Prealbumin Urine Color Yellow Urine Appearance Cloudy Urine pH 6.5 Ur Specific [place] 1.020 Urine Protein 30 (1+) H Urine Glucose (UA) Negative Urine Ketones Negative Urine Blood Large (3+) H Urine Nitrite Negative Ur Leukocyte Esterase Large (3+) H Urine RBC >20 H Urine WBC >50 H Ur Squamous Epith Cells 0-2 Urine Bacteria Trace Hyaline Casts 3-5 Random Vancomycin Urine Opiates Screen POSITIVE H Urine Fentanyl Screen POSITIVE H Ur Barbiturates Screen Not Detected Ur Phencyclidine Scrn Not Detected Ur Amphetamines Screen Not Detected U Benzodiazepines Scrn Not Detected Urine Cocaine Screen POSITIVE H U Marijuana (THC) Screen Not Detected 07/27/23 07/27/23 07/27/23 11:00 11:00 15:39 WBC RBC Hgb Hct MCV MCH MCHC RDW Plt Count MPV Immature Gran % (Auto) Neut % (Auto) Lymph % (Auto) [place] % (Auto) Eos % (Auto) Baso % (Auto) Lymph # (Auto) [place] # (Auto) Eos # (Auto) Baso # (Auto) Abs Immat Gran (auto) Absolute Neuts (auto) Absolute Nucleated RBC Nucleated RBC % (auto) Sodium 141 Potassium 3.5 Chloride 107 Carbon Dioxide 26 Anion Gap 12 BUN 6 L Creatinine 0.60 Estim Creat Clear Calc 75.7 Estimated GFR > 60 Random Glucose 84 Calcium 8.4 D Prealbumin 6.0 L Urine Color Urine Appearance Urine pH Ur Specific [place] Urine Protein Urine Glucose (UA) Urine Ketones Urine Blood Urine Nitrite Ur Leukocyte Esterase Urine RBC Urine WBC Ur Squamous Epith Cells Urine Bacteria Hyaline Casts Random Vancomycin 10.3 L Urine Opiates Screen Urine Fentanyl Screen Ur Barbiturates Screen Ur Phencyclidine Scrn Ur Amphetamines Screen U Benzodiazepines Scrn Urine Cocaine Screen U Marijuana (THC) Screen Imaging Radiology Impressions: ITS Impressions Pelvis CT 07/26/23 03:20 IMPRESSION: Retained stool. Distal rectal/anal region thickening of uncertain significance. Urinary bladder wall thickening. Right ischial region decubitus ulcer extending to the level of right ischium. No definitive cortical erosive changes seen to suggests osteomyelitis. Medications Medications Current Medications Acetaminophen (Acetaminophen 325 Mg Tablet) 650 mg PO Q6H PRN PRN Reason: Pain, Mild (Pain Scale 1-3) Last Admin: 07/26/23 21:48 Dose: 650 mg Baclofen (Baclofen 10 Mg Tablet) 10 mg PO TID [facility] Last Admin: 07/28/23 08:02 Dose: 10 mg Enoxaparin Sodium (Enoxaparin Sodium 40 Mg/0.4 Ml Syringe) 40 mg SUBCUT Q24H [facility] Last Admin: 07/28/23 05:37 Dose: Not Given Hydromorphone HCl (Hydromorphone Hcl 0.5 Mg/0.5 Ml Syringe) 0.5 mg IVPUSH Q4H PRN; Protocol PRN Reason: moderate pain Last Admin: 07/28/23 11:11 Dose: 0.5 mg Piperacillin Sod/Tazobactam (Sod 4.5 gm/ Sodium Chloride) 100 mls @ 200 mls/hr IV Q6H [facility] Last Infusion: 07/28/23 10:27 Dose: Infused Vancomycin HCl 1,000 mg/ (Sodium Chloride) 270 mls @ 270 mls/hr IV Q12H [facility] Last Infusion: 07/28/23 08:06 Dose: Infused Melatonin (Melatonin 3 Mg Tablet) 6 mg PO BEDTIME PRN PRN Reason: Insomnia Ondansetron HCl (Ondansetron Hcl 4 Mg/2 Ml Vial) 4 mg IVPUSH Q8H PRN PRN Reason: Nausea and Vomiting Pharmacy Consult (Consult Rx Vancomycin Dosing) 1 each MISCELLANE DAILY PRN PRN Reason: Consult order Sodium Chloride (0.9 % Sodium Chloride Flush 3 Ml Syringe) 3 ml IVFLUSH QSHIFT [facility] Last Admin: 07/28/23 07:09 Dose: 3 ml Allergies Allergies Allergy/AdvReac Type Severity Reaction Status Date / Time codeine [Codeine] Allergy Intermediate ITCHING, Verified 06/22/23 22:02 VOMTING, THROAT SWELLS tramadol [TRAMADOL] Allergy Intermediate BODY Verified 06/22/23 22:02 SWELLING Assessment & Plan Assessment & Plan (1) Opioid use disorder: Status: Acute Code(s): F11.90 - Opioid use, unspecified, uncomplicated Assessment and Plan: does not appear to be experiencing withdrawal sx at this time will call N to verify dosing comfort medications as needed will continue to follow (2) Cocaine use disorder: Status: Acute Code(s): F14.10 - Cocaine abuse, uncomplicated Total time managing care of this patient today __20__ minutes.
[2023-07-28 15:40] VITALS: BP 107/72; PULSE 90; RESP 16; TEMP 36.6; O2SAT 95
--- NOTE | 2023-07-28 15:52 | HE.PHANOTE ---
Re: methadone verification last dose 95 mg given 07/24/23 @0600 verified 07/28 by jessica maria
--- NOTE | 2023-07-28 15:53 | P.EN_ITS ---
Event Note Date of Service: 07/28/23 Event Note: Addiction note: Methadone dose verified via [facility] Last dose verified as 95mg on 07/24/2023 Chart review shows that EKG on 07/26/23 with QTc 742 Plan: -follow up EKG -restart of methadone dependant on QT shortening -as patient has missed 4 doses, restart at 50mg and increase to regular dose over the next couple of days as tolerated Time Spent With Patient Time: Total time managing care of this patient today ____ minutes.
[2023-07-28 18:20] LABS: Vancomycin Random 12.1 mcg/mL (15-20)
[2023-07-28 18:21] LABS: Anion Gap 13 (12-20); Blood Urea Nitrogen 5 mg/dL (9-16); Calcium 8.7 mg/dL (8.4-10.2); Carbon Dioxide 28 mmol/L (22-29); Chloride 104 mmol/L (96-108); Creatinine Clr Calc Pharmacy 65.8; Estimated Glomerular Filt Rate > 60; Glucose Fasting 128 mg/dL (60-99); Potassium 3.6 mmol/L (3.3-5.1); Sodium 141 mmol/L (135-145)
--- NOTE | 2023-07-28 18:29 | HE.PHANOTE ---
Re: vanco dosing Trough today 12.1, although it was drawn 1 hour late so may have been a little higher if taken on time. Renal function stable and insight showing auc 591 and trough 16.4. Maintain current regimen and recheck level 07/29 @1700.
[2023-07-28 20:00] VITALS: BP 147/87; PULSE 61; TEMP 36.2; O2SAT 96
[2023-07-28] MEDS: Melatonin 3 MG TABLET 6 MG PO (20:04)
[2023-07-29 03:14] VITALS: BP 149/85; PULSE 87; RESP 18; TEMP 36.2; O2SAT 94
[2023-07-29] MEDS: HYDROmorphone HCl 0.5 MG/0.5 ML SYRINGE IVPUSH ×4 (03:44→20:37)
[2023-07-29] MEDS: Piperacillin Sodium/Tazobactam 4.5 GM in 0.9 % Sodium Chloride 100 ML IV ×4 (03:44→20:34)
[2023-07-29] MEDS: ondansetron HCL 4 MG/2 ML VIAL IVPUSH (06:01)
[2023-07-29] MEDS: vancomycin HCL 1,000 MG in 0.9 % Sodium Chloride 250 ML 270 MG IV ×2 (06:09→18:11)
[2023-07-29 06:52] VITALS: BP 158/78; PULSE 50; RESP 16; TEMP 35.8; O2SAT 98
--- NOTE | 2023-07-29 08:52 | HO.PM.IMPN ---
Subjective Subjective Date of Service: 07/29/23 Interval History: improving Physical Exam Vital Signs: Vital Signs: Last Vital Signs Temp 96.5 F L 07/29/23 06:52 Pulse 50 07/29/23 06:52 Resp 16 07/29/23 06:52 BP 158/78 H 07/29/23 06:52 Pulse Ox 98 07/29/23 06:52 O2 Del Method Room Air 07/29/23 06:52 BMI result Body Mass Index 16.9 decubitus ulcer Objective Data Active Medications Acetaminophen (Acetaminophen 325 Mg Tablet) 650 mg PO Q6H PRN PRN Reason: Pain, Mild (Pain Scale 1-3) Last Admin: 07/26/23 21:48 Dose: 650 mg Documented By: ROMEO Baclofen (Baclofen 10 Mg Tablet) 10 mg PO TID [facility] Last Admin: 07/28/23 20:04 Dose: 10 mg Documented By: CRISTINE Enoxaparin Sodium (Enoxaparin Sodium 40 Mg/0.4 Ml Syringe) 40 mg SUBCUT Q24H [facility] Last Admin: 07/29/23 06:04 Dose: Not Given Documented By: CRISTINE Non-Admin Reason: Patient Refused Hydromorphone HCl (Hydromorphone Hcl 0.5 Mg/0.5 Ml Syringe) 0.5 mg IVPUSH Q4H PRN; Protocol PRN Reason: moderate pain Last Admin: 07/29/23 06:00 Dose: 0.5 mg Documented By: CRISTINE Comments: early dose, md mahoney Piperacillin Sod/Tazobactam (Sod 4.5 gm/ Sodium Chloride) 100 mls @ 200 mls/hr IV Q6H [facility] Last Infusion: 07/29/23 04:15 Dose: 0 mls/hr Documented By: CRISTINE Vancomycin HCl 1,000 mg/ (Sodium Chloride) 270 mls @ 270 mls/hr IV Q12H [facility] Last Admin: 07/29/23 06:09 Dose: 270 mls/hr Documented By: CRISTINE Melatonin (Melatonin 3 Mg Tablet) 6 mg PO BEDTIME PRN PRN Reason: Insomnia Last Admin: 07/28/23 20:04 Dose: 6 mg Documented By: CRISTINE Methadone HCl (Methadone Hcl 20 Mg/2 Ml Oral.Conc) 65 mg PO ONCE ONE Stop: 07/29/23 09:01 Ondansetron HCl (Ondansetron Hcl 4 Mg/2 Ml Vial) 4 mg IVPUSH Q8H PRN PRN Reason: Nausea and Vomiting Last Admin: 07/29/23 06:01 Dose: 4 mg Documented By: CRISTINE Pharmacy Consult (Consult Rx Vancomycin Dosing) 1 each MISCELLANE DAILY PRN PRN Reason: Consult order Sodium Chloride (0.9 % Sodium Chloride Flush 3 Ml Syringe) 3 ml IVFLUSH QSHIFT [facility] Last Admin: 07/29/23 07:55 Dose: Not Given Documented By: BASIL Non-Admin Reason: IV Running Labs 07/27/23 11:00 07/28/23 17:58 Labs: Laboratory Results - last 24 hr 07/28/23 07/28/23 07/28/23 17:58 17:58 17:58 Anion Gap 13 Estim Creat Clear Calc 65.8 Cancelled Estimated GFR > 60 Cancelled Fasting Glucose 128 H Calcium 8.7 Random Vancomycin 12.1 L Microbiology Microbiology Results: Microbiology 07/27/23 Unknown Urine Culture - Final Urine clean catch - Urine chin top No growth. 07/26/23 03:15 Blood Culture - Preliminary Blood - Venous No growth after 48 hours. 07/26/23 03:15 Blood Culture - Preliminary Blood - Venous No growth after 48 hours. Assessment and Plan (1) Decubitus ulcer: Status: Acute Plan 44F PMH polysubstance dependence complicated by history of cervical epidural MRSA abscess, cord compression, paraplegia, presented with worsening decubitus ulcer. infected decubitus ulcer continue vanc, zosyn, surgery appreciated - bedside debridement 07/26/23 and 07/28/23, ? further debridement in OR id appreciated - likely augmentin and doxy on discharge paraplegia due to history of cervical epidural mrsa abscess with cord compression repositioning polysubtance dependence restarted methadone at reduced dose, addiction team following moderate protein calorie malnutrition dvt prophylaxis - lovenox full code reason for continued hospitalization:iv abx for significant infeciton at risk for sepsis, ?further debridement Time Spent With Patient Time: Total time managing care of this patient today ____ minutes. Quality Stroke Does the patient have a stroke diagnosis?: No VTE Prior VTE?: No VTE Risk Level:: Medical - moderate - high VTE Device Contraindication: Treatment Not Indicated VTE Drug Contraindication: N/A - Med Ordered
[2023-07-29] MEDS: Baclofen 10 MG TABLET PO ×3 (08:58→20:36)
[2023-07-29] MEDS: methADONE HCl 20 MG/2 ML ORAL.CONC 65 MG PO (09:07)
[2023-07-29 09:54] LABS: Creatinine Clr Calc Pharmacy 58.9; Estimated Glomerular Filt Rate > 60
--- NOTE | 2023-07-29 13:40 | MHC.RECOVRN ---
This health technical writer went to meet with patient, patient was resting. Addiction/Recovery team to return to bedside when patient alert.
[2023-07-29] MEDS: 0.9 % Sodium Chloride Flush 3 ML SYRINGE IVFLUSH ×2 (15:28→20:39)
[2023-07-29 15:29] VITALS: BP 126/70; PULSE 62; RESP 18; TEMP 36; O2SAT 98
--- NOTE | 2023-07-29 18:39 | MHC.RECOVRN ---
This functional tester typewriters met with patient to assess MTD dose. Pt admitted for ducibitus ulcer. Pt resting in bed, watching t.v. easy to engage. Pt reports felt better after MTD, pt states was confused as to why was given 65mg MTD, as gets 100mg at the clinic. This functional tester typewriters and patient reviewed that patients QTC was high, therefore patient started on lower dose, with QTC stablizing and no sedation, plan is to continue titrating. Pt verbalized understanding. Pt reports lost ability to ambulate approximately 4 months, related to a cardiac event where pt reports circulation was cut off. Pt denied hx of overdose. This functional tester typewriters checked in with patients RN Jose F, Jose F reports no sedation after MTD dose. Reviewed findings with Provider Shanelle Miller.
[2023-07-29 20:00] VITALS: BP 113/62; PULSE 48; RESP 18; TEMP 36.1; O2SAT 98
[2023-07-29] MEDS: Melatonin 3 MG TABLET 6 MG PO (20:36)
[2023-07-29] MEDS: ALPRAZolam 0.5 MG TABLET PO (20:36)
[2023-07-30 04:00] VITALS: BP 113/72; PULSE 51; RESP 18; TEMP 36.2; O2SAT 96
[2023-07-30] MEDS: Piperacillin Sodium/Tazobactam 4.5 GM in 0.9 % Sodium Chloride 100 ML IV (04:23)
[2023-07-30] MEDS: HYDROmorphone HCl 0.5 MG/0.5 ML SYRINGE IVPUSH ×2 (04:29→08:35)
[2023-07-30 06:30] LABS: Hematocrit 34.3 % (37.0-47.0); Mean Corpuscular HGB Conc 29.2 g/dl (31.0-35.0); Mean Corpuscular Hemoglobin 23.9 pg (27.0-33.0); Mean Corpuscular Volume 82.1 fL (80.0-98.0); Platelet Count 295 X10*3/uL (160-400); Red Blood Count 4.18 X10*6/uL (4.20-5.50); Red Cell Distribution Width 17.3 % (11.0-16.0); White Blood Count 7.5 X10*3/uL (4.8-10.8)
[2023-07-30 06:45] LABS: Anion Gap 16 (12-20); Blood Urea Nitrogen 4 mg/dL (9-16); Calcium 8.9 mg/dL (8.4-10.2); Carbon Dioxide 24 mmol/L (22-29); Chloride 107 mmol/L (96-108); Creatinine Clr Calc Pharmacy 60.5; Estimated Glomerular Filt Rate > 60; Glucose Fasting 100 mg/dL (60-99); Sodium 144 mmol/L (135-145)
--- NOTE | 2023-07-30 06:56 | HE.PHANOTE ---
Addendum entered by Yashira Pena kathi 07/30/23 10:07: Patients random for 0900 came back at 18.5. Original trough of 22.2 was accurate. Will decrease dose from 1000 mg Q12H to 750 mg Q12H. Patients scr increased from 0.69 yesterday to 0.75. Next draw will be taken 07/31 @0900. Predicted AUC 545. Original Note: re: vanco patient had level come back this morning at 0625 for vanc. level was 22.2, lab came back as being pulled yesterday but lab had told me on the phone that this is a mistake and it was in fact pulled this morning 07/30 @0625. level is high without any change in renal function or dose. will obtain another random for 0900 today to see if level was accurate.
[2023-07-30 06:58] VITALS: BP 113/75; PULSE 52; RESP 16; TEMP 36.6; O2SAT 96
[2023-07-30 07:02] LABS: Vancomycin Random 22.2 mcg/mL (15-20)
[2023-07-30] MEDS: Baclofen 10 MG TABLET PO (07:29)
[2023-07-30] MEDS: 0.9 % Sodium Chloride Flush 3 ML SYRINGE IVFLUSH (07:29)
[2023-07-30] MEDS: methADONE HCl 20 MG/2 ML ORAL.CONC 80 MG PO (07:29)
[2023-07-30] MEDS: Potassium Chloride Packet 20 MEQ PACKET 40 MEQ PO (08:36)
[2023-07-30 09:36] LABS: Vancomycin Random 18.5 mcg/mL (15-20)
--- NOTE | 2023-07-30 11:05 | P.DS_ITS ---
DS: Providers Provider Date of Service: 07/30/23 Date of admission: 07/26/23 05:26 Primary care physician: None Physician Consults: 07/26/23 06:09 Consult to General Surgery [place]ine [place] [facility] [place] Reason for consultation: Infected decubitus ulcer 07/26/23 09:22 Consult to Infectious Diseases Routine Consulting [place] [facility] [place] Reason for consultation: decubitus 07/26/23 16:57 Addiction Medicine Routine Consulting Provider: Addiction Covering Reason for consultation: polysubstance DS: Diagnosis Discharge Diagnosis (1) Decubitus ulcer: Status: Acute (2) Cocaine use disorder: Status: Acute (3) Opioid use disorder: Status: Acute DS: Summary Hospital Course Hospital Course: Admission note HPI This is a 47-year-old female with pertinent history of mood disorder who presents to the emergency department for pain and evaluation of wound in the right buttock area.? Patient states it has been ongoing for the last 1 week and has been progressive.? For patient states she noticed purulent foul-smelling drainage that started 3 days ago.? Patient is homeless and has been having difficulty with it.? She is wheelchair-bound.? She denies any fevers or chills.? Did not take any antibiotics for it.? No chest discomfort, palpitations, shortness of breath, abdominal pain, changes in urinary or bowel habits. In the emergency department, infected decubitus ulcer seen. Hospital course Admitted for treatment of infected decubitus ulcers which had bedside debrid ement 07/26/23 and 07/28/23 and treated with IV antibiotics of Vancomycin and Zosyn with good response. Surgery recommended dressing and following up with wound clinic. CT scan showing Right ischial region decubitus ulcer extending to the level of right ischium. Evaluated by ID who recommended Augmentin and Doxycycline. Seen by recovery team who restarted her Methadone dose and increased it back to 80mg daily with a plan to follow with methadone clinic as outpatient. You need a new PCP so you can go to Wound clinic Continue antiibotics as prescribed Avoid drugs Follow with Methadone clinic Time Spent with Patient Time attestation: Total time managing care of this patient today ____ minutes. Discharge coordination time: Greater than 30 minutes Quality: Safe Use of Opioids Does Pt have an Active Cancer Diagnosis on the Problem List?: No Quality: Stroke Does the patient have a stroke diagnosis?: No Physical Exam Vital Signs: Vital Signs: Last Vital Signs Temp 98 F 07/30/23 06:58 Pulse 52 07/30/23 06:58 Resp 16 07/30/23 06:58 BP 113/75 07/30/23 06:58 Pulse Ox 96 07/30/23 06:58 O2 Del Method Room Air 07/30/23 06:58 BMI result Body Mass Index 16.9 Const: Other: Constitutional : Awake, interactive, not in distress Neck : Normal inspection, Supple Cardiovascular : RRR, no JVP, no lower extremity edema Respiratory : good bilateral air entry, no crackles, wheezes or rhonchi Gastrointestinal: soft, lax, Normal bowel sounds, Non tender Skin : Warm, Dry, Right decubitus ulcer covered with dressing with no significant erythema or drainage noticed Neurological : Alert & oriented x3, No focal deficit DS: Data Data Completed and Pending Labs on day of discharge: Laboratory Results - last 24 hr 07/30/23 07/30/23 07/30/23 06:01 06:01 06:25 WBC 7.5 RBC 4.18 L Hgb 10.0 L Hct 34.3 L MCV 82.1 MCH 23.9 L MCHC 29.2 L RDW 17.3 H Plt Count 295 MPV 11.0 Absolute Nucleated RBC 0.000 Nucleated RBC % (auto) 0.0 Sodium 144 Potassium 3.0 L Chloride 107 Carbon Dioxide 24 Anion Gap 16 BUN 4 L Creatinine 0.75 Estim Creat Clear Calc 60.5 Estimated GFR > 60 Fasting Glucose 100 H Calcium 8.9 Random Vancomycin 22.2 H 07/30/23 09:16 WBC RBC Hgb Hct MCV MCH MCHC RDW Plt Count MPV Absolute Nucleated RBC Nucleated RBC % (auto) Sodium Potassium Chloride Carbon Dioxide Anion Gap BUN Creatinine Estim Creat Clear Calc Estimated GFR Fasting Glucose Calcium Random Vancomycin 18.5 Preliminary micro results at discharge 07/26/23 03:15 Blood Culture - Preliminary Blood - Venous No growth after 48 hours. 07/26/23 03:15 Blood Culture - Preliminary Blood - Venous No growth after 48 hours. Imaging Chest x-ray: Radiologist's impression: ITS Impressions Pelvis CT 07/26/23 03:20 IMPRESSION: Retained stool. Distal rectal/anal region thickening of uncertain significance. Urinary bladder wall thickening. Right ischial region decubitus ulcer extending to the level of right ischium. No definitive cortical erosive changes seen to suggests osteomyelitis. Discharge Plan Discharge Anticipated Discharge Date/Time: 07/30/23 10:38 Patient Disposition: Home, Self-Care Discharge Diagnosis: Decubitus ulcers Referrals: Physician,None [Primary Care Provider] - 1 Week Discharge Medications: New doxycycline monohydrate 100 mg capsule 100 mg PO BID Qty: 20 0RF amoxicillin-pot clavulanate 875-125 mg tablet 1 tab PO BID Qty: 20 0RF ibuprofen 400 mg tablet 400 mg PO Q8H PRN (Reason: pain (scale score 4-6)) Qty: 30 0RF Continued methadone 10 mg/mL Concentrate 95 mg PO DAILY Discharge Orders: Discharge Order (Routine); Ordered 07/30/23 Ordered By: Nehemias Lawson Diet: Advance to usual diet Activity on Discharge: As tolerated Stand Alone Forms: Patient Portal Discharge page Care Plan Goals: Read below Health Concerns: Read below Plan of Treatment: Read below Assessment: You were admitted for treatment of infected decubitus ulcers. evaluated by surgery and wound care while treated with IV antibiotics. You need a new PCP so you can go to Wound clinic Continue antiibotics as prescribed Avoid drugs Follow with Methadone clinic
--- NOTE | 2023-07-30 11:10 | MHC.CM.PN ---
Addendum entered by Shayy Harper RN 07/30/23 11:30: PT DECLINES CM ASSIST W/TRANSPORT Addendum entered by Shayy Harper RN 07/30/23 11:19: PT'S PRESCRIPTIONS WILL BE SENT TO [facility] AND DELIVERED TO BEDSIDE TODAY. Original Note: CM MET W/PT TO DISCUSS DISPO, PT INITIALLY ASKED FOR [facility] 6 HOWEVER IS NOW DECLINING AND REPORTING SHE WILL STAY WITH HER MOTHER AND WOULD LIKE TO D/C NOW. CM HAS ASSISTED PT W/CALL TO TO CHANGE FROM [facility] TO [facility] SHE DOES NOT HAVE TRANSPORTATION TO [place] AND PT WILL NEED PCP APPT PRIOR TO GOING TO WOUND CLINIC, CM BAREBACK RIDER WILL CALL TO MAKE AN APPT ONCE PCC IS CHANGED TO [facility]. PT WILL THEN NEED A REFERRAL FOR [facility]. CM HAS REQUESTED PT'S NURSE GIVE DEMONSTRATION OF WOUND CARE AND TO SEND SUPPLIES HOME PT REPORTS HER MOTHER CAN ASSIST, PT WILL NOT GIVE ADDRESS D/T HOUSING SITUATION. PT PROVIDED W/C CM CONTACT NUMBER TO FOLLOW UP IF NEEDED AND PT REPORTS /[facility] CAN REACH PT THROUGH HER MOTHER RICK AT [phone].
== END 2023-07-30 12:06 | disposition home or self-care (01) | DRG 951 ==
LOC: HO.ED 02:21 → HO.EDOVER 05:32 → HO.S3 12:10
PROVIDERS: Emergency Medicine; Internal Medicine; Surgery; Admitting Provider Student in an Organized Health Care Education/Training Program; Emergency Provider Emergency Medicine; Visit Provider Student in an Organized Health Care Education/Training Program
DX: I96 Gangrene, not elsewhere classified (principal); L89.214 Pressure ulcer of right hip, stage 4; G82.20 Paraplegia, unspecified; E44.0 Moderate protein-calorie malnutrition; J44.1 Chronic obstructive pulmonary disease with (acute) exacerbation; F11.20 Opioid dependence, uncomplicated; D50.9 Iron deficiency anemia, unspecified; E87.6 Hypokalemia; Z68.1 Body mass index [BMI] 19.9 or less, adult; F14.10 Cocaine abuse, uncomplicated; N39.0 Urinary tract infection, site not specified; F17.210 Nicotine dependence, cigarettes, uncomplicated; Z71.6 Tobacco abuse counseling; Z59.02 Unsheltered homelessness; Z99.3 Dependence on wheelchair; Z86.14 Personal history of Methicillin resistant Staphylococcus aureus infection
CPT/HCPCS: 36415; 72192; 80048; 80053; 80202; 80307; 81001; 82565; 83540; 83605; 84134; 85025; 85027; 85652; 86140; 87040; 87086; 93005; 99285; J1170; J1650; J1885; J2270; J2405; J2543; J3370

== ENCOUNTER → 2023-07-26 05:26 | Outpatient (BNV) | payer MEDICAID, SELFPAY | PROVIDERS: Admitting Provider Student in an Organized Health Care Education/Training Program; Emergency Provider Emergency Medicine; Visit Provider Student in an Organized Health Care Education/Training Program | DX: L89.90 Pressure ulcer of unspecified site, unspecified stage (principal); F14.10 Cocaine abuse, uncomplicated; F11.90 Opioid use, unspecified, uncomplicated | CPT/HCPCS: 99222; 99232; 99233; 99239; 99499 ==

== ENCOUNTER → 2023-07-26 05:26 | Outpatient (BNV) | payer MEDICAID, SELFPAY | PROVIDERS: Admitting Provider Student in an Organized Health Care Education/Training Program; Emergency Provider Emergency Medicine; Visit Provider Internal Medicine | DX: L89.90 Pressure ulcer of unspecified site, unspecified stage (principal); F14.10 Cocaine abuse, uncomplicated; F11.90 Opioid use, unspecified, uncomplicated | CPT/HCPCS: 99222 ==

== ENCOUNTER → 2023-07-26 05:26 | Outpatient (BNV) | payer MEDICAID, SELFPAY | PROVIDERS: Admitting Provider Student in an Organized Health Care Education/Training Program; Emergency Provider Emergency Medicine; Visit Provider Surgery | DX: L89.90 Pressure ulcer of unspecified site, unspecified stage (principal); F14.10 Cocaine abuse, uncomplicated; F11.90 Opioid use, unspecified, uncomplicated; D64.9 Anemia, unspecified; N39.0 Urinary tract infection, site not specified; J44.1 Chronic obstructive pulmonary disease with (acute) exacerbation | CPT/HCPCS: 11043; 11046; 99222; 99232 ==

== ENCOUNTER → 2023-07-26 05:26 | Outpatient (BNV) | payer MEDICAID, SELFPAY | PROVIDERS: Admitting Provider Student in an Organized Health Care Education/Training Program; Emergency Provider Emergency Medicine; Visit Provider Nurse Practitioner Psychiatric/Mental Health | DX: F11.90 Opioid use, unspecified, uncomplicated (principal); F14.10 Cocaine abuse, uncomplicated | CPT/HCPCS: 99231; 99499 ==

== ENCOUNTER 2023-08-01 20:03 | Emergency (ER) | payer MEDICAID, SELFPAY ==
--- NOTE | ~2023-08-01 | CT_ITS ---
EXAMINATION: CT HEAD WITHOUT CONTRAST CLINICAL INFORMATION: New onset seizure COMPARISON: None available. TECHNIQUE: Contiguous axial imaging was performed from the skull base to vertex without intravenous administration of contrast. This CT examination was performed using dose optimization techniques as appropriate, variously including the following: *Automated exposure control *Adjustment of mA and/or kV according to patient size (this includes techniques or standardized protocols for targeted exams where dose is matched to indication/reason for exam; i.e. extremities or head) *Use of iterative reconstruction technique DLP: 5:30 mGy-cm FINDINGS: The lateral, third and fourth ventricles are normally outlined. The cortical sulci and basal cisterns are normally outlined as well. There is no acute territorial defect, hemorrhage or midline shift. The extra-axial spaces are unremarkable. Calvarium: Intact. Maxillofacial sinuses and mastoids: Clear as visualized. CT/CT head/brain wo IV con IMPRESSION: No acute intracranial abnormality.
[2023-08-01 20:18] VITALS: BP 134/92; PULSE 92
[2023-08-01 20:43] VITALS: BP 134/92; PULSE 92; O2SAT 96
[2023-08-01 20:46] VITALS: BP 118/84; PULSE 74; RESP 12; TEMP 36.9; O2SAT 95; BMI 18.2
--- NOTE | 2023-08-01 20:49 | PC.NURSE ---
Per pt had 2 seizures today and called ems. Pt reports 09/02 chronic leg pain Pt denies n/v/d. Pt states rec'd her methadone this morning. vitals stable seizure pads placed on bed. plan of care ongoing.
--- NOTE | 2023-08-01 22:30 | PC.NURSE ---
Pt ca&ox4, no signs of distress. Pt requested and given warm blanket. Plan of care ongoing.
--- NOTE | 2023-08-01 22:58 | ED.SEIZURE ---
HPI - Seizure General Chief Complaint: Seizure Stated Complaint: question f seizure Time Seen by Provider: 08/01/23 22:45 Source: patient Mode of arrival: EMS Limitations: no limitations History of Present Illness HPI Narrative: Patient history of cocaine and opiate abuse wheelchair-bound history of epidural abscess just admitted 07/26 discharged 07/30 for large sacral decub states that patient had seizure for discharge and again today witnessed by family? Mother EMS came to their home 2 times and ultimately bring her to the ER patient was not postictal no incontinence no signs head injury or headache no fever no chills patient stated she will have seizure for last 2 years this is a 5th sz she had today and she has not seen any specialist denied any alcohol use Related Data Home Medications Medication Instructions Recorded Confirmed methadone 10 mg/mL oral concentrate 95 mg PO DAILY 07/28/23 07/28/23 Previous Rx's Medication Instructions Recorded amoxicillin 875 mg-potassium 1 tab PO BID #20 tabs 07/30/23 clavulanate 125 mg tablet doxycycline monohydrate 100 mg 100 mg PO BID #20 caps 07/30/23 capsule ibuprofen 400 mg tablet 400 mg PO Q8H PRN pain (scale 07/30/23 score 4-6) #30 tabs Allergies Allergy/AdvReac Type Severity Reaction Status Date / Time codeine [Codeine] Allergy Intermediate ITCHING, Verified 06/22/23 22:02 VOMTING, THROAT SWELLS tramadol [TRAMADOL] Allergy Intermediate BODY Verified 06/22/23 22:02 SWELLING Review of Systems Review of Systems: Yes all other systems are reviewed and are negative PMFSH Past Medical History Medical History Polysubstance (including opioids) dependence, daily use Drug abuse in remission Asthma Social History Social History Household Members: None Housing: Other Housing Other:: homeless Do you presently have visiting nurse or other home services: No Alcohol intake: never Patient Tobacco Use Status: Current someday Tobacco user Tobacco use type: Cigarette Cigarettes Per Day: 2 Smoked in Last 30 Days: Yes Substance Use Type: Former Substance User Advance Directives: Yes Advance Directives on File: Yes Advance Directives Date on File: 06/16/23 service: No Physical Exam Vital Signs: Vital Signs: Last Vital Signs Temp 98.1 F 08/01/23 23:38 Pulse 76 08/01/23 23:38 Resp 12 08/01/23 23:38 BP 122/84 08/01/23 23:38 Pulse Ox 96 08/01/23 23:38 O2 Del Method Room Air 08/01/23 23:38 BMI result Body Mass Index 18.2 Appearance: Alert. Oriented X3. No acute distress. Eyes: PERRLA, No Nystagmus ENT: Pharynx normal. Oral Mucosa moist edentulous no tongue bite Neck: Normal inspection. Neck supple. CVS: Normal heart rate and rhythm. Pulses normal. Respiratory: No respiratory distress. Equal air entry bilateral, no wheezing/rales/rhonchi Abdomen: Soft and nontender. Bowel sounds are present, no mass palpable, no CVA tenderness Skin: Skin warm and dry. Normal skin color. Normal skin turgor. Extremities: No lower extremity edema. No calf tenderness Neuro: Oriented X 3. Contracted lower extremity Medical Decision Making Medical Decision Making MDM Narrative: Patient with questionable seizure details not available patient was not postictal says that had a seizure but no records were no evaluation by Neurology. Patient refusing labs in the ER will get head CT CT scan of the head is negative patient refused any labs will follow-up with PCP-neurology Discharge Plan Discharge Clinical Impression: New onset seizure Patient Disposition: Home, Self-Care Instructions: New-Onset Seizure in Adults (ED) Additional Instructions: Etiology of seizures not very clear? Pseudo-seizure Follow with neurologist and PCP for further evaluation and management Prescriptions: No Action methadone 10 mg/mL Concentrate 95 mg PO DAILY doxycycline monohydrate 100 mg capsule 100 mg PO BID Qty: 20 0RF amoxicillin-pot clavulanate 875-125 mg tablet 1 tab PO BID Qty: 20 0RF ibuprofen 400 mg tablet 400 mg PO Q8H PRN (Reason: pain (scale score 4-6)) Qty: 30 0RF Referrals: Palma Childers MD [Physician] - 2 weeks Interventions: ED Discharge Assessment Last Done: 08/02/23 00:51 Discharge Date/Time: 08/02/23 00:53
--- NOTE | 2023-08-01 23:29 | MHC.EDTECH ---
Pt refusing blood work, Doctor Gio aware.
[2023-08-01 23:38] VITALS: BP 122/84; PULSE 76; RESP 12; TEMP 36.7; O2SAT 96
--- NOTE | 2023-08-02 00:50 | PC.NURSE ---
Pt ca&ox4, no signs of distress. Pt requested and given gingerale. plan of care ongoing.
== END 2023-08-02 00:53 | disposition home or self-care (01) ==
PROVIDERS: Emergency Provider Internal Medicine
DX: R56.9 Unspecified convulsions (principal); F19.20 Other psychoactive substance dependence, uncomplicated; F11.20 Opioid dependence, uncomplicated; F17.210 Nicotine dependence, cigarettes, uncomplicated
CPT/HCPCS: 70450; 99284

== ENCOUNTER 2023-08-07 13:07 | Inpatient (IN) | payer MEDICAID, SELFPAY ==
--- NOTE | ~2023-08-07 | CT_ITS ---
EXAMINATION: CT PELVIS WITHOUT CONTRAST CLINICAL INFORMATION: Decubitus ulcer. Rule out osteomyelitis. COMPARISON: Previous CT of the pelvis July 2023 TECHNIQUE: Helical scanning was performed with submillimeter collimation through the pelvis. Sagittal and coronal multiplanar 2-D reconstructions were obtained. This CT examination was performed using dose optimization techniques as appropriate, variously including the following: *Automated exposure control *Adjustment of mA and/or kV according to patient size (this includes techniques or standardized protocols for targeted exams where dose is matched to indication/reason for exam; i.e. extremities or head) *Use of iterative reconstruction technique DLP: 459 mGy-cm FINDINGS: There is soft tissue defect or ulcer in the right lower buttock. This extends deep to the bone/the right posterior ischial tuberosity. There is air immediately adjacent to the bone There is focal osteopenia and small erosive changes cortical thinning of the right posterior tissue tuberosity suggestive of osteomyelitis. No fluid collection is seen. There is some subcutaneous edema seen over the lower back. There is generalized osteopenia. Stool throughout the colon suggestive of constipation. Question wall thickening of the distal colon and rectum. The bladder, uterus and adnexa are unremarkable. There is atherosclerotic disease. No ascites or adenopathy. Air in the subcutaneous tissue of the left lower abdominal wall probably related to subcutaneous injection site. CT/CT pelvis wo IV con IMPRESSION: Right posterior buttock ulcer/open wound with abnormal air extending to the bone/right posterior issue tuberosity. Focal osteopenia, cortical thinning and bone loss to the right posterior ischial tuberosity suggestive of osteomyelitis. Constipation. Question wall thickening of the distal colon and rectum/proctocolitis. Findings will be communicated by the [place] work flow impregnation operator
[2023-08-07 13:16] VITALS: BP 124/86; PULSE 103; RESP 14; O2SAT 96; BMI 18.9
--- NOTE | 2023-08-07 13:20 | ED_ITS ---
HPI - General Adult General Chief complaint: Back Pain/Injury Stated complaint: Wound Time Seen by Provider: 08/07/23 13:13 Source: patient Limitations: no limitations History of Present Illness HPI narrative: A 47-year-old female presents large decubitus ulcer. Patient is homeless, paraplegic and is wheelchair-bound. She was here recently and admitted to the hospital for wound care. She was subsequently discharged. Patient has had persistent pain and discomfort and decubitus ulcer with drainage. She reports no fevers or chills. Her pain is mild to moderate nature. Worse with sitting which he mostly does. The pain does not radiate. There is no numbness or tingling. There are no new injuries. Patient did have a bedside debridement on 07/26/2023 and 03/13/2023. She was admitted with intravenous antibiotics including vancomycin and Zosyn with good response. Surgery recommended dressing and follow-up with the Wound Clinic. CT scan showed right ischial region decubitus ulcer extending to level the right issue evaluated by Infectious Disease who also recommended Augmentin and upon discharge. Patient was seen every Related Data Home Medications Medication Instructions Recorded Confirmed methadone 10 mg/mL oral concentrate 95 mg PO DAILY 07/28/23 07/28/23 Previous Rx's Medication Instructions Recorded amoxicillin 875 mg-potassium 1 tab PO BID #20 tabs 07/30/23 clavulanate 125 mg tablet doxycycline monohydrate 100 mg 100 mg PO BID #20 caps 07/30/23 capsule ibuprofen 400 mg tablet 400 mg PO Q8H PRN pain (scale 07/30/23 score 4-6) #30 tabs Allergies Allergy/AdvReac Type Severity Reaction Status Date / Time codeine [Codeine] Allergy Intermediate ITCHING, Verified 06/22/23 22:02 VOMTING, THROAT SWELLS tramadol [TRAMADOL] Allergy Intermediate BODY Verified 06/22/23 22:02 SWELLING Review of Systems 2 Review of Systems: CONSTITUTIONAL: Denies weight loss, fever and chills. HEENT: Denies changes in vision and hearing. RESPIRATORY: Denies SOB and cough. CV: Denies palpitations no CP. GI: Denies abdominal pain, nausea, vomiting and diarrhea. : Denies dysuria and urinary frequency. MSK: Denies myalgia and joint pain. SKIN: Large decubitus ulcer to the ischium. NEUROLOGICAL: Denies headache and syncope. PSYCHIATRIC: Denies recent changes in mood. Denies anxiety and depression. All other ROS are negative unless in HPI PMFSH Past Medical History Medical History Polysubstance (including opioids) dependence, daily use Drug abuse in remission Asthma Social History Social History Household Members: None Housing: Other Housing Other:: homeless Do you presently have visiting nurse or other home services: No Alcohol intake: never Patient Tobacco Use Status: Current someday Tobacco user Tobacco use type: Cigarette Cigarettes Per Day: 2 Substance Use Type: Former Substance User Advance Directives: Yes Advance Directives on File: Yes Advance Directives Date on File: 06/16/23 service: No Physical Exam ED Vital Signs: Vital Signs - 24 hr 08/07/23 13:16 08/07/23 16:02 Pulse Rate 103 H 111 H Respiratory Rate 14 16 Blood Pressure 124/86 105/71 Pulse Oximetry 96 96 Oxygen Delivery Method Room Air Room Air BMI result Body Mass Index 18.9 Course Course Course Narrative: This is an RME: Additional HPI, ROS, PE not included below will be deferred to primary provider. This is a 47-year-old female, who is wheelchair-bound history of epidural abscess just previously admitted on July 26 and discharged on July 30 for a large sacral decubitus wound, presenting to the emergency department for evaluation of worsening sacral wound with maggots. Patient was found in vehicle unable to get out due to being wheelchair bound, patient was gently placed into wheelchair and brought back into the emergency room. I informed my attending physician Dr. Pierre about this patient. Labs, cultures, lactic acid was ordered. Will defer on imaging given last imaging of this was July 26. Reevaluation(s) Reevaluation #1: Patient's labs have finally got sent. She has a left EJ that is an [address] Vargas to assume care. Hospitalist aware of pending admission Time: 16:11 Medical Decision Making Medical Decision Making MDM Narrative: Patient has a large to decubitus ulcer. There is no foul drainage however, there were noted to be maggots within the wound as well as around the patient. She is homeless. Is likely she does have persistent wound care infection and requires 2nd wound care retention. Routine laboratory has been ordered. I will order antibiotics. I believe patient would be best served by being admitted to the hospital again. On wondering if long-term placement early short-term placement would be appropriate in the interim to cysts with for wound care going forward. Differential diagnosis includes cellulitis, abscess, phlegmon, osteomyelitis. Differential Diagnosis Differential Diagnoses: The differential diagnosis associated with the presentation includes (See above) Admission/Observation Consideration of admission/observation: Escalation of care including admission/observation considered Consult Healthcare Provider Management of the patient was discussed with: Hospitalist Lab Data MDM Lab Attestation statement: I reviewed the patient's lab results. 08/07/23 15:47 Independent Historian Clinical information obtained from an independent historian. History obtained from or confirmed by: EMS External Record Review External record reviewed: Inpatient record Prescription Management I considered prescription management with: Antibiotic Discharge Plan Discharge Clinical Impression: Decubitus ulcer Patient Disposition: Admitted As Inpatient Prescriptions: No Action methadone 10 mg/mL Concentrate 95 mg PO DAILY doxycycline monohydrate 100 mg capsule 100 mg PO BID Qty: 20 0RF amoxicillin-pot clavulanate 875-125 mg tablet 1 tab PO BID Qty: 20 0RF ibuprofen 400 mg tablet 400 mg PO Q8H PRN (Reason: pain (scale score 4-6)) Qty: 30 0RF
--- NOTE | 2023-08-07 14:00 | PC.NURSE ---
tunneling wound R. buttock maggots present; cleaned and dried. dressing applied per Dr. Pierre approval. pictures uploaded to chart. pt repositioned off wound. pt tough stick, notified Dr. Pierre for u/s guided IV. awaiting imaging/lab work.
--- NOTE | 2023-08-07 15:03 | PC.NURSE ---
attempted to flush EJ placed by Dr. Pierre; unable to flush/draw back blood. notified Dr. Pierre. unable to obtain blood work d/t tough stick.
[2023-08-07 16:02] VITALS: BP 105/71; PULSE 111; RESP 16; O2SAT 96
[2023-08-07 16:21] LABS: Lactic Acid 1.1 mmol/L (0.5-2.0); MANUAL DIFF FLAG NO
[2023-08-07 16:25] LABS: Alanine Aminotransferase 10 U/L (0-31); Alkaline Phosphatase 98 U/L (39-117); Anion Gap 12 (12-20); Aspartate Amino Transferase 16 U/L (5-31); Bilirubin Total 0.5 mg/dL (0.0-1.0); Blood Urea Nitrogen 8 mg/dL (9-16); C Reactive Protein 19.72 mg/dL (< or = 0.50); Calcium 9.1 mg/dL (8.4-10.2); Carbon Dioxide 32 mmol/L (22-29); Chloride 98 mmol/L (96-108); Creatinine Clr Calc Pharmacy 74.7; Estimated Glomerular Filt Rate > 60; Glucose Random 131 mg/dL (60-115); Potassium 3.2 mmol/L (3.3-5.1); Sodium 139 mmol/L (135-145); Total Protein 7.1 g/dL (6.5-8.0)
[2023-08-07 16:33] LABS: Basophils Absolute Auto 0.1 X10*3/uL (0.0-0.2); Basophils Percent Auto 0.5 % (0-2); Eosinophils Absolute Auto 0.1 X10*3/uL (0.0-0.4); Eosinophils Percent Auto 0.8 % (0-4); Hematocrit 33.1 % (37.0-47.0); Imm Gran Abs Auto 0.05 X10*3/uL (0.00-0.03); Imm Gran Pct Auto 0.3 % (0.0-0.4); Lymphocytes Absolute Auto 1.4 X10*3/uL (1.2-4.9); Lymphocytes Percent Auto 9.1 % (20-40); Mean Corpuscular HGB Conc 30.2 g/dl (31.0-35.0); Mean Corpuscular Hemoglobin 23.8 pg (27.0-33.0); Mean Corpuscular Volume 78.6 fL (80.0-98.0); Mean Platelet Volume 9.8 fL (9.4-12.3); Monocytes Percent Auto 6.7 % (2-11); Neutrophils Absolute Auto 12.2 x10*3/uL (2.0-8.3); Neutrophils Percent Auto 82.6 % (45-73); Platelet Count 590 X10*3/uL (160-400); Red Blood Count 4.21 X10*6/uL (4.20-5.50); Red Cell Distribution Width 17.4 % (11.0-16.0); White Blood Count 14.8 X10*3/uL (4.8-10.8)
[2023-08-07] MEDS: Piperacillin Sodium/Tazobactam 3.375 GM in 0.9 % Sodium Chloride 50 ML IV ×2 (16:36→22:31)
--- NOTE | 2023-08-07 16:43 | PC.NURSE ---
new EJ placed by Dr. Pierre; labs and blood cultures obtained. Abx infusing. hospitalist to bedside for admission. requested pain meds as pt reporting 10/10 lower back/BLE pain. awaiting orders. call garcia within reach.
[2023-08-07 16:49] LABS: Erythrocyte Sedimentation Rate 59 MM/HR (0-20)
--- NOTE | 2023-08-07 16:56 | P.HPHOSP_ITS ---
History of Present Illness Date of Service: 08/07/23 Chief Complaint: infected wound 47yo F with hx polysubstance abuse, opioid use disorder on methadone, mood disorder, and infected sacral decubitus ulcer. She also has history of thoracic vertebral osteomyelitis and underwent C5-T4 fusion and T1-T2 laminectomies on 02/12/23. She is homeless and wheelchair-bound. She was just admitted here 07/26- 07/30/23 for infection of the decubitus ulcer. No osteomyelitis. She underwent bedside debridement by surgical instruments inspector on 07/26 and 07/28/23 and was discharged on doxycycline and amoxicillin-clavulanate. She was going to live with her mother, who was supposed to change the wound. However, the patient states that she never went to live with her mother as her mother is not allowed to have her or anyone else live in the public housing unit. As a result, she has been staying on the streets and not caring for her wound. She comes in with worsening pain and discharge from her decubitus ulcer. No fever or chills. No weakness or numbness of legs. She says she has been taking her antibiotics. There are maggots coming out of the wound. The wound was cleaned in the ED and she was given IV vancomycin and piperacillin-tazobactam. Review of Systems 2 Review of Systems: Yes all other systems are reviewed and are negative [facility] Medical History (Updated 08/07/23 @ 17:10 by Renetta Shah MD) History of osteomyelitis Cocaine use disorder Opioid use disorder Anemia Polysubstance (including opioids) dependence, daily use Drug abuse in remission Asthma Surgical History (Updated 08/07/23 @ 17:10 by Renetta Shah MD) History of spinal fusion Social History Household Members: None Housing: Other Housing Other:: homeless Do you presently have visiting nurse or other home services: No Alcohol intake: never Patient Tobacco Use Status: Current someday Tobacco user Tobacco use type: Cigarette Cigarettes Per Day: 2 Substance Use Type: Former Substance User Advance Directives: Yes Advance Directives on File: Yes Advance Directives Date on File: 06/16/23 service: No Meds Allergies Allergy/AdvReac Type Severity Reaction Status Date / Time codeine [Codeine] Allergy Intermediate ITCHING, Verified 06/22/23 22:02 VOMTING, THROAT SWELLS tramadol [TRAMADOL] Allergy Intermediate BODY Verified 06/22/23 22:02 SWELLING Active Medications: Current Medications Acetaminophen (Acetaminophen 325 Mg Tablet) 650 mg PO Q6H PRN PRN Reason: Pain, Mild (Pain Scale 1-3) Docusate Sodium (Docusate Sodium 100 Mg Capsule) 100 mg PO BID COUNT INCLUDES THE [facility] Enoxaparin Sodium (Enoxaparin Sodium 40 Mg/0.4 Ml Syringe) 40 mg SUBCUT Q24H COUNT INCLUDES THE [facility] Vancomycin HCl 1,250 mg/ (Sodium Chloride) 250 mls @ 166.667 mls/hr IV ONCE ONE Stop: 08/07/23 17:29 Piperacillin Sod/Tazobactam (Sod 3.375 gm/ Sodium Chloride) 50 mls @ 100 mls/hr IV Q6H COUNT INCLUDES THE [facility] Methadone HCl (Methadone Hcl 20 Mg/2 Ml Oral.Conc) 100 mg PO DAILY COUNT INCLUDES THE [facility] Morphine Sulfate (Morphine Sulfate 4 Mg/Ml Cartridge) 4 mg IVPUSH Q3H PRN; Protocol PRN Reason: Pain, Severe (Pain Scale 7-10) Ondansetron HCl (Ondansetron Hcl 4 Mg/2 Ml Vial) 4 mg IVPUSH Q8H PRN PRN Reason: Nausea and Vomiting Pharmacy Consult (Consult Rx Vancomycin Dosing) 1 each MISCELLANE DAILY PRN PRN Reason: Consult order Pharmacy Consult (Consult Rx Vancomycin Dosing) 1 each MISCELLANE DAILY PRN PRN Reason: Consult order Senna (Sennosides 8.6 Mg Tablet) 17.2 mg PO BEDTIME PRN PRN Reason: Constipation Sodium Chloride (0.9 % Sodium Chloride Flush 3 Ml Syringe) 3 ml IVFLUSH QSHIFT COUNT INCLUDES THE [facility] Home Medications Medication Instructions Recorded Confirmed Last Taken Type methadone 10 mg/mL oral concentrate 95 mg PO DAILY 07/28/23 07/28/23 07/24/23 06:00 History Physical Exam 2 Vital Signs and Narrative: Vital Signs: Last Vital Signs Pulse 111 H 08/07/23 16:02 Resp 16 08/07/23 16:02 BP 105/71 08/07/23 16:02 Pulse Ox 96 08/07/23 16:02 O2 Del Method Room Air 08/07/23 16:02 BMI result Body Mass Index 18.9 Gen: in pain, disheveled, poor hygiene HEENT: sclera anicteric, moist mucus membranes Neck: supple Lungs: clear to auscultation bilaterally Heart: regular rate and rhythm, no murmurs Abd: soft, non-tender, non-distended Ext: no edema Skin: large sacral decubitus ulcer; see photo below Neuro: alert and oriented x3, no focal findings Psych: appropriate affect Results Labs 08/07/23 15:47 08/07/23 15:47 Labs: Laboratory Results - last 24 hr 08/07/23 15:47 MCV 78.6 L MCH 23.8 L MCHC 30.2 L RDW 17.4 H Plt Count 590 H D MPV 9.8 Immature Gran % (Auto) 0.3 Neut % (Auto) 82.6 H Lymph % (Auto) 9.1 L [place] % (Auto) 6.7 Eos % (Auto) 0.8 Baso % (Auto) 0.5 Lymph # (Auto) 1.4 [place] # (Auto) 1.0 Eos # (Auto) 0.1 Baso # (Auto) 0.1 Abs Immat Gran (auto) 0.05 H Absolute Neuts (auto) 12.2 H Absolute Nucleated RBC 0.000 Nucleated RBC % (auto) 0.0 ESR 59 H Anion Gap 12 Estim Creat Clear Calc 74.7 Estimated GFR > 60 Random Glucose 131 H Lactic Acid 1.1 Calcium 9.1 Total Bilirubin 0.5 AST 16 ALT 10 Alkaline Phosphatase 98 C-Reactive Protein 19.72 H Total Protein 7.1 Albumin 3.0 L Assessment and Plan (1) Decubitus ulcer: Status: Acute Plan 47yo homeless, wheelchair-bound F with hx polysubstance abuse, opioid use disorder on methadone, mood disorder, thoracic vertebral osteomyelitis s/p C5-T4 fusion and T1-T2 laminectomies 02/12/23, and infected sacral decubitus ulcer who was just admitted here 07/26-07/30/23 for infection of the decibitus ulcer. Discharged to her mother's home but never went there and has been living on the streets and not getting wound care. Presenting with worsening pain and discharge from the wound and found to have maggot infestation. infected sacral decubitus ulcer - Admit to M/S, consult ID/Gen Surg/Wound Care, pelvic CT to r/o underlying osteomyelitis, give vanco/pip-cristo, wet-dry saline-soaked gauze daily - Pain control with APAP, IV morphine microcytic anemia - Replete Fe hypoK - Replete, recheck in AM tobacco abuse - NRT OUD - Methadone. Screen for HBV/HCV/HIV. Addiction Medicine consultation. Pt denies recent substance abuse but Utox 07/27/23 was positive for fentayl and cocaine. homelessness - CM consult. FEN - Add nutritional supplementation. VTE ppx - LMWH dispo - Will need placement for definitive management of this wound. I anticipate that the patient will stay at least 2 midnights as an inpatient in the hospital due to the above reasons. It is neither reasonable nor safe to care for them in a less acute setting. Time Spent With Patient Time: Total time managing care of this patient today ____ minutes. Quality Stroke Does the patient have a stroke diagnosis?: No VTE Prior VTE?: No VTE Risk Level:: Medical - moderate - high VTE Device Contraindication: N/A - Device Ordered VTE Drug Contraindication: N/A - Med Ordered
[2023-08-07] MEDS: Enoxaparin Sodium 40 MG/0.4 ML SYRINGE SUBCUT (17:22)
[2023-08-07] MEDS: Morphine Sulfate 4 MG/ML CARTRIDGE IVPUSH ×2 (17:22→23:53)
[2023-08-07 17:25] LABS: Magnesium 1.9 mg/dL (1.6-2.6)
--- NOTE | 2023-08-07 17:39 | PC.NURSE ---
delay abx d/t iv positional. retaped flushed; abx infusing.
--- NOTE | 2023-08-07 18:02 | PC.NURSE ---
pt in ct at this time. contacting Dr. Shah as EJ appears infiltrated.
--- NOTE | 2023-08-07 18:35 | PC.NURSE ---
Pt in CT scan, EJ on left side flushing without incident but pt reports discomfort with flushing fast, no swelling noted to site after two flushes. CT scan with contrast changed to dry scan as pt unable to tolerate pressure through IV line, Dr Shah notified. Pt sleepy after blair medicine technologist but awakes to verbal stimuli, sat 94-96% on room air. Mother in room reports Section 35 filed, mother made aware to inform staff on floor in order to be notified when time for discharge. Pt changed for urine incontinence and repositioned in bed.
[2023-08-07] MEDS: Potassium Chloride ER 20 MEQ TAB.ER.PRT 40 MEQ PO (18:48)
--- NOTE | 2023-08-07 19:01 | PC.NURSE ---
medications late due to questioning integrity of the EJ. Anwer willing to place new line for patient prior to going upstairs
[2023-08-07] MEDS: Lactated Ringers 1,000 ML 100 ML IVCONT (19:27)
[2023-08-07] MEDS: vancomycin HCL 1,250 MG in 0.9 % Sodium Chloride 250 ML 166.67 MG IV (19:28)
[2023-08-07 19:40] VITALS: BP 120/82; PULSE 104; RESP 13; TEMP 37.2; O2SAT 95
--- NOTE | 2023-08-07 19:42 | PC.NURSE ---
placed ultrasound guided 20g IV in R bicep. meds started
[2023-08-07 20:35] VITALS: BP 111/79; PULSE 84; RESP 18; TEMP 36.4; O2SAT 92
--- NOTE | 2023-08-07 20:37 | PHA.PROG ---
Admission Date/Time: August 07, 2023 16:51 Indication: SKIN/SKIN STRUCTURE Weight in k.8 kg Adjusted body weight in Kg: Dwight body weight in Kg: Obesity Dosing Indication % IBW: Serum Creatinine - Last 168 Hours 08/07/23 15:47 Creatinine 0.68 Estimated CrCl and GFR - Last 168 Hours 08/07/23 15:47 Estim Creat Clear Calc 74.7 Estimated GFR > 60 Vancomycin Loading Dose: 1250 Current Vancomycin Dosing Regimen: 750 Q12H Vancomycin Monitoring using AUC goal of 400 - 600 range with trough as surrogate marker: AUC 483 TROUGH 14.5 Date and Time for next Vancomycin Level to be drawn: 08/09 @0500 Pharmacist Comments on Vancomycin Plan: Vancomycin dosing will take advantage of [employer] as a clinical decision support tool that uses Bayesian modeling to calculate individual patient's pharmacokinetic parameters and forecast the patient's drug concentration time course with the target goal AUC 24 range of 400 - 600 mg/L/hr.
[2023-08-07 21:56] VITALS: BMI 21.9
[2023-08-07 23:46] VITALS: BP 104/64; PULSE 80; RESP 16; TEMP 36.7; O2SAT 95
[2023-08-07 23:53] VITALS: RESP 16
[2023-08-08] MEDS: Piperacillin Sodium/Tazobactam 3.375 GM in 0.9 % Sodium Chloride 50 ML IV ×4 (04:22→22:47)
[2023-08-08 05:26] VITALS: BP 115/75; PULSE 80; RESP 16; O2SAT 95
[2023-08-08 05:27] VITALS: RESP 16
[2023-08-08] MEDS: Morphine Sulfate 4 MG/ML CARTRIDGE IVPUSH ×5 (05:27→22:56)
[2023-08-08] MEDS: Lactated Ringers 1,000 ML 100 ML IVCONT ×2 (05:29→14:23)
[2023-08-08 06:32] LABS: MANUAL DIFF FLAG NO
[2023-08-08 06:35] LABS: Basophils Absolute Auto 0.1 X10*3/uL (0.0-0.2); Basophils Percent Auto 0.5 % (0-2); Eosinophils Absolute Auto 0.1 X10*3/uL (0.0-0.4); Eosinophils Percent Auto 1.3 % (0-4); Hematocrit 30.4 % (37.0-47.0); Imm Gran Abs Auto 0.04 X10*3/uL (0.00-0.03); Imm Gran Pct Auto 0.4 % (0.0-0.4); Lymphocytes Absolute Auto 2.2 X10*3/uL (1.2-4.9); Lymphocytes Percent Auto 21.9 % (20-40); Mean Corpuscular HGB Conc 29.6 g/dl (31.0-35.0); Mean Corpuscular Hemoglobin 24.3 pg (27.0-33.0); Mean Corpuscular Volume 81.9 fL (80.0-98.0); Mean Platelet Volume 10.6 fL (9.4-12.3); Monocytes Absolute Auto 0.7 X10*3/uL (0.1-1.2); Monocytes Percent Auto 6.8 % (2-11); Neutrophils Absolute Auto 6.8 x10*3/uL (2.0-8.3); Neutrophils Percent Auto 69.1 % (45-73); Platelet Count 475 X10*3/uL (160-400); Red Blood Count 3.71 X10*6/uL (4.20-5.50); Red Cell Distribution Width 17.4 % (11.0-16.0); White Blood Count 9.9 X10*3/uL (4.8-10.8)
[2023-08-08 06:53] LABS: Creatinine Clr Calc Pharmacy 77.7; Estimated Glomerular Filt Rate > 60; Magnesium 1.8 mg/dL (1.6-2.6)
[2023-08-08 06:55] LABS: Alanine Aminotransferase 7 U/L (0-31); Albumin Level 2.6 g/dL (3.5-5.0); Alkaline Phosphatase 80 U/L (39-117); Anion Gap 11 (12-20); Aspartate Amino Transferase 12 U/L (5-31); Bilirubin Total 0.4 mg/dL (0.0-1.0); Blood Urea Nitrogen 7 mg/dL (9-16); Calcium 8.5 mg/dL (8.4-10.2); Carbon Dioxide 30 mmol/L (22-29); Chloride 106 mmol/L (96-108); Creatinine Clr Calc Pharmacy 76.6; Estimated Glomerular Filt Rate > 60; Glucose Random 78 mg/dL (60-115); Sodium 144 mmol/L (135-145)
[2023-08-08 07:21] VITALS: BP 103/60; PULSE 58; RESP 18; TEMP 36.4; O2SAT 97
--- NOTE | 2023-08-08 07:33 | PHA.MEDREC ---
Pharmacy Consult ? Medication Reconciliation Pharmacy has completed the medication reconciliation. Completed by Mandi
[2023-08-08] MEDS: vancomycin HCL 750 MG in 0.9 % Sodium Chloride 250 ML 265 MG IV ×2 (08:11→20:08)
--- NOTE | 2023-08-08 09:50 | HE.PHANOTE ---
VANCOMYCIN DOSING BASED ON SCR OF 0.71 ON 08/08/23, CONTINUE WITH 750MG BID. NEXT TROUGH LEVEL IS ON 08/09/23 @0500.
--- NOTE | 2023-08-08 10:53 | MHC.CM.PN ---
pt is homeless goes to [facility] she is w/c bound, family has filed a sect 35 ,pt has 3 children ages 31 26 and 28 pt declined to file a hcp dc plan tbd by pts hospitial course ?[facility]
--- NOTE | 2023-08-08 11:40 | HO.PM.IMPN ---
Subjective Subjective Date of Service: 08/08/23 Interval History: c/o sacral pain no fever CT positive for osteomyelitis Review of Systems Review of Systems: Yes all other systems are reviewed and are negative Physical Exam Vital Signs: Vital Signs: Last Vital Signs Temp 97.5 F 08/08/23 07:21 Pulse 58 08/08/23 07:21 Resp 18 08/08/23 07:21 BP 103/60 08/08/23 07:21 Pulse Ox 97 08/08/23 07:21 O2 Del Method Room Air 08/08/23 07:21 BMI result Body Mass Index 21.9 Gen: disheveled, poor hygiene HEENT: sclera anicteric, moist mucus membranes Neck: supple Lungs: clear to auscultation bilaterally Heart: regular rate and rhythm, no murmurs Abd: soft, non-tender, non-distended Ext: no edema Skin: large sacral decubitus ulcer Neuro: alert and oriented x3, no focal findings Psych: appropriate affect Objective Data Active Medications Acetaminophen (Acetaminophen 325 Mg Tablet) 650 mg PO Q6H PRN PRN Reason: Pain, Mild (Pain Scale 1-3) Docusate Sodium (Docusate Sodium 100 Mg Capsule) 100 mg PO BID [facility] Last Admin: 08/08/23 08:14 Dose: Not Given Documented By: LEONOR Non-Admin Reason: Patient Refused Enoxaparin Sodium (Enoxaparin Sodium 40 Mg/0.4 Ml Syringe) 40 mg SUBCUT Q24H [facility] Last Admin: 08/07/23 17:22 Dose: 40 mg Documented By: SYLVIA Ferrous Sulfate (Ferrous Sulfate 324 Mg Tablet.Dr) 324 mg PO DAILY [facility] Last Admin: 08/08/23 08:14 Dose: Not Given Documented By: LEONOR Non-Admin Reason: Patient Refused Piperacillin Sod/Tazobactam (Sod 3.375 gm/ Sodium Chloride) 50 mls @ 100 mls/hr IV Q6H [facility] Last Admin: 08/08/23 10:53 Dose: 100 mls/hr Documented By: LEONOR Lactated Ringer's (Lr) 1,000 mls @ 100 mls/hr IVCONT .Q10H [facility] Last Admin: 08/08/23 05:29 Dose: 100 mls/hr Documented By: AIYANA Vancomycin HCl 750 mg/ Sodium (Chloride) 265 mls @ 265 mls/hr IV Q12H [facility] Last Infusion: 08/08/23 09:54 Dose: Infused Documented By: LEONOR Potassium Chloride (Potassium Chloride/H20) 10 meq in 100 mls @ 100 mls/hr IV Q1H [facility] Stop: 08/08/23 14:29 Methadone HCl (Methadone Hcl 20 Mg/2 Ml Oral.Conc) 100 mg PO DAILY [facility] Morphine Sulfate (Morphine Sulfate 4 Mg/Ml Cartridge) 4 mg IVPUSH Q3H PRN; Protocol PRN Reason: Pain, Severe (Pain Scale 7-10) Last Admin: 08/08/23 08:55 Dose: 4 mg Documented By: LEONOR Multivitamins/Vitamin C (Multivitamin Tablet) 1 tab PO DAILY [facility] Last Admin: 08/08/23 08:09 Dose: Not Given Documented By: LEONOR Non-Admin Reason: Patient Refused Nicotine (Nicotine 21 Mg Patch.Td24) 21 mg TRANSDERMA DAILY [facility] Last Admin: 08/08/23 08:10 Dose: Not Given Documented By: LEONOR Non-Admin Reason: Patient Refused Ondansetron HCl (Ondansetron Hcl 4 Mg/2 Ml Vial) 4 mg IVPUSH Q8H PRN PRN Reason: Nausea and Vomiting Pharmacy Consult (Consult Rx Vancomycin Dosing) 1 each MISCELLANE DAILY PRN PRN Reason: Consult order Pharmacy Consult (Consult Rx Vancomycin Dosing) 1 each MISCELLANE DAILY PRN PRN Reason: Consult order Senna (Sennosides 8.6 Mg Tablet) 17.2 mg PO BEDTIME PRN PRN Reason: Constipation Sodium Chloride (0.9 % Sodium Chloride Flush 3 Ml Syringe) 3 ml IVFLUSH QSHIFT [facility] Last Admin: 08/08/23 08:11 Dose: Not Given Documented By: LEONOR Non-Admin Reason: IV Running Labs 08/08/23 05:03 08/08/23 05:03 Labs: Laboratory Results - last 24 hr 08/07/23 08/08/23 08/08/23 15:47 05:03 05:03 MCV 78.6 L 81.9 MCH 23.8 L 24.3 L MCHC 30.2 L 29.6 L RDW 17.4 H 17.4 H Plt Count 590 H D 475 H MPV 9.8 10.6 Immature Gran % (Auto) 0.3 0.4 Neut % (Auto) 82.6 H 69.1 Lymph % (Auto) 9.1 L 21.9 Harney % (Auto) 6.7 6.8 Eos % (Auto) 0.8 1.3 Baso % (Auto) 0.5 0.5 Lymph # (Auto) 1.4 2.2 [place]ney # (Auto) 1.0 0.7 Eos # (Auto) 0.1 0.1 Baso # (Auto) 0.1 0.1 Abs Immat Gran (auto) 0.05 H 0.04 H Absolute Neuts (auto) 12.2 H 6.8 Absolute Nucleated RBC 0.000 0.000 Nucleated RBC % (auto) 0.0 0.0 ESR 59 H Anion Gap 12 11 L Estim Creat Clear Calc 74.7 76.6 77.7 Estimated GFR > 60 > 60 Random Glucose 131 H Lactic Acid 1.1 Calcium 9.1 Magnesium 1.9 Total Bilirubin 0.5 AST 16 ALT 10 Alkaline Phosphatase 98 C-Reactive Protein 19.72 H Total Protein 7.1 Albumin 3.0 L 08/08/23 05:03 MCV MCH MCHC RDW Plt Count MPV Immature Gran % (Auto) Neut % (Auto) Lymph % (Auto) Harney % (Auto) Eos % (Auto) Baso % (Auto) Lymph # (Auto) Harney # (Auto) Eos # (Auto) Baso # (Auto) Abs Immat Gran (auto) Absolute Neuts (auto) Absolute Nucleated RBC Nucleated RBC % (auto) ESR Anion Gap Estim Creat Clear Calc Estimated GFR > 60 Random Glucose 78 Lactic Acid Calcium 8.5 D Magnesium 1.8 Total Bilirubin 0.4 AST 12 ALT 7 Alkaline Phosphatase 80 C-Reactive Protein Total Protein 6.0 L Albumin 2.6 L Assessment and Plan (1) Osteomyelitis: Status: Acute Plan d2 47yo homeless, wheelchair-bound F with hx polysubstance abuse, opioid use disorder on methadone, mood disorder, thoracic vertebral osteomyelitis s/p C5-T4 fusion and T1-T2 laminectomies 02/12/23, and infected sacral decubitus ulcer who was just admitted here 07/26-07/30/23 for infection of the decibitus ulcer. Discharged to her mother's home but never went there and has been living on the streets and not getting wound care. Presenting with worsening pain and discharge from the wound and found to have maggot infestation CT shows osteomyelitis infected sacral decubitus ulcer ischial osteomyelitis - consults to ID/Gen Surg/Wound Care pending - pip/cristo + vanco d2 - follow BCx - wet-dry saline-soaked gauze daily - pain control with APAP, IV morphine microcytic anemia - repleting Fe hypoK - replete IV, recheck in AM tobacco abuse - NRT OUD - methadone p dose verification. Screen for HBV/HCV/HIV. Addiction Medicine consultation. Pt denies recent substance abuse but Utox 07/27/23 was positive for fentayl and cocaine. homelessness - CM consult. FEN - add nutritional supplementation to promote wound healing VTE ppx - LMWH dispo - will need placement for definitive management of this wound. Time Spent With Patient Time: Total time managing care of this patient today ___35_ minutes. Quality Stroke Does the patient have a stroke diagnosis?: No VTE Prior VTE?: No VTE Risk Level:: Medical - moderate - high VTE Device Contraindication: N/A - Device Ordered VTE Drug Contraindication: N/A - Med Ordered
[2023-08-08] MEDS: Potassium Chloride/H20 10 MEQ/100 ML PIGGYBACK 100 MEQ IV ×3 (11:56→14:19)
[2023-08-08 12:00] VITALS: BMI 21.9
--- NOTE | 2023-08-08 12:30 | P.CONWO_ITS ---
History of Present Illness Data of Consult Service Date: 08/08/23 Requesting physician: Renetta Shah / [facility] Primary Care Provider: [facility] Reason for consult: infected decubitus ulcer/maggots 47-year-old female with history of paraplegia, epidural abscess comes in with fever, history of homelessness. CT scan of the ischial tuberosities positive for osteomyelitis. She is on methadone. There is a history of IVDA. She was seen by ID. Augmentin is proposed for discharge. Wound Care is asked to provide an opinion. Her candidacy for surgical intervention is not yet understood. [facility] Medical History History of osteomyelitis Cocaine use disorder Opioid use disorder Anemia Polysubstance (including opioids) dependence, daily use Drug abuse in remission Asthma Surgical History History of spinal fusion Social History Household Members: None Household Members Other:: homeless Housing: Homeless Housing Other:: homeless Do you presently have visiting nurse or other home services: No Alcohol intake: never Patient Tobacco Use Status: Never used Tobacco Tobacco use type: Cigarette Cigarettes Per Day: 2 Use of substances other than those prescribed or required for medical reasons: No Substance Use Type: Former Substance User Currently Displaying Signs/Symptoms of Drug Intoxication Withdrawal: No Have you been hit, kicked, punched, or otherwise hurt by someone within the past year? If so, by whom?: No Do you feel safe in your current relationship?: No Current Relationship Is there a partner from a previous relationship who is making you feel unsafe now?: No Are you made to feel afraid or neglected: No Advance Directives: Yes Advance Directives on File: Yes Advance Directives Date on File: 06/16/23 Do you have thoughts of harming others: None Do you have a plan to hurt others: No Plan Recently lost weight without trying: Unsure Nutrition Risks: No Nutritional Risk Patient : No service: No Meds Allergies Allergy/AdvReac Type Severity Reaction Status Date / Time codeine [Codeine] Allergy Intermediate ITCHING, Verified 06/22/23 22:02 VOMTING, THROAT SWELLS tramadol [TRAMADOL] Allergy Intermediate BODY Verified 06/22/23 22:02 SWELLING Active Medications: Current Medications Acetaminophen (Acetaminophen 325 Mg Tablet) 650 mg PO Q6H PRN PRN Reason: Pain, Mild (Pain Scale 1-3) Docusate Sodium (Docusate Sodium 100 Mg Capsule) 100 mg PO BID [facility] Last Admin: 08/08/23 08:14 Dose: Not Given Enoxaparin Sodium (Enoxaparin Sodium 40 Mg/0.4 Ml Syringe) 40 mg SUBCUT Q24H [facility] Last Admin: 08/07/23 17:22 Dose: 40 mg Ferrous Sulfate (Ferrous Sulfate 324 Mg Tablet.Dr) 324 mg PO DAILY [facility] Last Admin: 08/08/23 08:14 Dose: Not Given Piperacillin Sod/Tazobactam (Sod 3.375 gm/ Sodium Chloride) 50 mls @ 100 mls/hr IV Q6H [facility] Last Infusion: 08/08/23 12:00 Dose: Infused Lactated Ringer's (Lr) 1,000 mls @ 100 mls/hr IVCONT .Q10H [facility] Last Admin: 08/08/23 05:29 Dose: 100 mls/hr Vancomycin HCl 750 mg/ Sodium (Chloride) 265 mls @ 265 mls/hr IV Q12H [facility] Last Infusion: 08/08/23 09:54 Dose: Infused Potassium Chloride (Potassium Chloride/H20) 10 meq in 100 mls @ 100 mls/hr IV Q1H [facility] Stop: 08/08/23 14:29 Last Admin: 08/08/23 11:56 Dose: 100 mls/hr Methadone HCl (Methadone Hcl 20 Mg/2 Ml Oral.Conc) 100 mg PO DAILY [facility] Morphine Sulfate (Morphine Sulfate 4 Mg/Ml Cartridge) 4 mg IVPUSH Q3H PRN; Protocol PRN Reason: Pain, Severe (Pain Scale 7-10) Last Admin: 08/08/23 08:55 Dose: 4 mg Multivitamins/Vitamin C (Multivitamin Tablet) 1 tab PO DAILY [facility] Last Admin: 08/08/23 08:09 Dose: Not Given Nicotine (Nicotine 21 Mg Patch.Td24) 21 mg TRANSDERMA DAILY [facility] Last Admin: 08/08/23 08:10 Dose: Not Given Ondansetron HCl (Ondansetron Hcl 4 Mg/2 Ml Vial) 4 mg IVPUSH Q8H PRN PRN Reason: Nausea and Vomiting Pharmacy Consult (Consult Rx Vancomycin Dosing) 1 each MISCELLANE DAILY PRN PRN Reason: Consult order Pharmacy Consult (Consult Rx Vancomycin Dosing) 1 each MISCELLANE DAILY PRN PRN Reason: Consult order Senna (Sennosides 8.6 Mg Tablet) 17.2 mg PO BEDTIME PRN PRN Reason: Constipation Sodium Chloride (0.9 % Sodium Chloride Flush 3 Ml Syringe) 3 ml IVFLUSH QSHIFT [facility] Last Admin: 08/08/23 08:11 Dose: Not Given Home Medications Medication Instructions Recorded Confirmed Last Taken Type methadone 10 mg/mL oral concentrate 80 mg PO DAILY 07/28/23 08/09/23 08/07/23 History Physical Exam 2 Vital Signs and Narrative: Vital Signs: Last Vital Signs Temp 97.5 F 08/08/23 07:21 Pulse 58 08/08/23 07:21 Resp 18 08/08/23 07:21 BP 103/60 08/08/23 07:21 Pulse Ox 97 08/08/23 07:21 O2 Del Method Room Air 08/08/23 07:21 BMI result Body Mass Index 21.9 I looked at the photograph of the ischium on admission. There is a fair amount of pink healthy tissue. There is fascia exposed. ADDENDUM: Bilateral lower extremity spasticity is appreciated without hyper reflexia. She will be unable to ambulate in the rehab facility and is likely confined to the wheelchair which will increase the risk of recurrent ischial ulcerations. Regarding wound integrity, the ischial soft tissues are pink, healthy and granular. Fascia is exposed. It is not possible to view the periosteum of the ischial osteomyelitis because of the covering fascia. Results Labs 08/08/23 05:03 08/11/23 06:08 Labs: Laboratory Results - last 24 hr 08/07/23 08/08/23 08/08/23 15:47 05:03 05:03 MCV 78.6 L 81.9 MCH 23.8 L 24.3 L MCHC 30.2 L 29.6 L RDW 17.4 H 17.4 H Plt Count 590 H D 475 H MPV 9.8 10.6 Immature Gran % (Auto) 0.3 0.4 Neut % (Auto) 82.6 H 69.1 Lymph % (Auto) 9.1 L 21.9 [place] % (Auto) 6.7 6.8 Eos % (Auto) 0.8 1.3 Baso % (Auto) 0.5 0.5 Lymph # (Auto) 1.4 2.2 [place] # (Auto) 1.0 0.7 Eos # (Auto) 0.1 0.1 Baso # (Auto) 0.1 0.1 Abs Immat Gran (auto) 0.05 H 0.04 H Absolute Neuts (auto) 12.2 H 6.8 Absolute Nucleated RBC 0.000 0.000 Nucleated RBC % (auto) 0.0 0.0 ESR 59 H Anion Gap 12 11 L Estim Creat Clear Calc 74.7 76.6 77.7 Estimated GFR > 60 > 60 Random Glucose 131 H Lactic Acid 1.1 Calcium 9.1 Magnesium 1.9 Total Bilirubin 0.5 AST 16 ALT 10 Alkaline Phosphatase 98 C-Reactive Protein 19.72 H Total Protein 7.1 Albumin 3.0 L 08/08/23 05:03 MCV MCH MCHC RDW Plt Count MPV Immature Gran % (Auto) Neut % (Auto) Lymph % (Auto) [place] % (Auto) Eos % (Auto) Baso % (Auto) Lymph # (Auto) [place] # (Auto) Eos # (Auto) Baso # (Auto) Abs Immat Gran (auto) Absolute Neuts (auto) Absolute Nucleated RBC Nucleated RBC % (auto) ESR Anion Gap Estim Creat Clear Calc Estimated GFR > 60 Random Glucose 78 Lactic Acid Calcium 8.5 D Magnesium 1.8 Total Bilirubin 0.4 AST 12 ALT 7 Alkaline Phosphatase 80 C-Reactive Protein Total Protein 6.0 L Albumin 2.6 L Imaging Radiologist's Impressions: Impressions Pelvis CT 08/07/23 18:15 IMPRESSION: Right posterior buttock ulcer/open wound with abnormal air extending to the bone/right posterior issue tuberosity. Focal osteopenia, cortical thinning and bone loss to the right posterior ischial tuberosity suggestive of osteomyelitis. Constipation. Question wall thickening of the distal colon and rectum/proctocolitis. Findings will be communicated by the [place] work flow brand executive Assessment and Plan (1) Osteomyelitis: Status: Acute Plan Debilitated 47-year-old female with homelessness and osteomyelitis of the ischial tuberosity. Defer to Infectious Disease regarding use of antibiotics. Inclined to allow general surgery to opine on candidacy for surgical debridement of bone, possible wound VAC. a combination of these 2 entities would likely yield best outcome if the patient is able to tolerate. We can see her on outpatient basis if she agrees, after surgical intervention and in conjunction with Infectious Disease if desired. Regarding the maggots, they are a containment problem as an inpatient and recommend that environmental services advise further. Though they are sometimes used in the outpatient wound setting, this is only in a controlled manor with regular surgical debridement and concomitant dressing changes. ADDENDUM: Dr. Bishop was interviewing the patient at the time of this evaluation. She is going for diverting ostomy tomorrow in the setting of impaired mobility, incomplete tetraplegia, to reduce ischial wound cross contamination. Unfortunately, the patient is not straight cathing to divert urine and her social situation does not promote skin health if she is unable to have bowel program and urinary management independently. Agree with diverting ostomy. The question is whether a wound VAC is appropriate. I do not think her social situation is going to facilitate healing with a wound vac. Anticipate 3 month recovery if vac is helpful. Inclined to allow general surgery to manage this as they choose. Dr. Bishop may consider doing additional debridement in the OR tomorrow of the ischial wound while diverting ostomy is carried out. Defer dressing changes in that regard to surgery, likely wet to dry for short- term management. When she goes to a facility, appropriateness for wound VAC can be re-evaluated but as previously mentioned, the best path to closure is bone debridement with 6 weeks of IV antibiotics the patient agrees and is able to follow through with recommendations. Time Spent With Patient Time: Total time managing care of this patient today ____ minutes.
[2023-08-08 15:25] VITALS: BP 116/71; PULSE 64; RESP 18; TEMP 36.8; O2SAT 96
--- NOTE | 2023-08-08 15:27 | MHC.CLN ---
NUTRITION DIET=REGULAR. ADDING SUPPLEMENTS TO IMPROVE NUTRITIONAL INTAKE AND PROMOTE WOUND HEALING: ENSURE MAX BID PROVIDES 300 KCALS, 60 G PROTEIN. GELATEIN BID PROVIDES 320 KCALS, 40 G PROTEIN. PATIENT WITH INFECTED WOUND TO SACRUM. REGULAR DIET WITH SUPPLEMENT APPROPRIATE. FOLLOW FOR INTAKE AND WOUND HEALING.
--- NOTE | 2023-08-08 16:20 | W.PM.IDCN ---
History of Present Illness Data of Consult Service Date: 08/08/23 Requesting physician: Renetta Shah Primary Care Provider: [facility] Reason for consult: right ischial tuberosity OM She presents with worsening right buttock wound with exudate and maggots. She has no fever or chills at this time. She has had prior MRSA bacteremia 03/10/2023. Review of Systems Review of Systems: Yes all other systems are reviewed and are negative PMFSH Past Medical History Medical History History of osteomyelitis Cocaine use disorder Opioid use disorder Anemia Polysubstance (including opioids) dependence, daily use Drug abuse in remission Asthma Family History Family history: reviewed and not pertinent Surgical History Surgical History History of spinal fusion Social History Social History Household Members: None Household Members Other:: homeless Housing: Homeless Housing Other:: homeless Do you presently have visiting nurse or other home services: No Alcohol intake: never Patient Tobacco Use Status: Never used Tobacco Tobacco use type: Cigarette Cigarettes Per Day: 2 Use of substances other than those prescribed or required for medical reasons: No Substance Use Type: Former Substance User Currently Displaying Signs/Symptoms of Drug Intoxication Withdrawal: No Have you been hit, kicked, punched, or otherwise hurt by someone within the past year? If so, by whom?: No Do you feel safe in your current relationship?: No Current Relationship Is there a partner from a previous relationship who is making you feel unsafe now?: No Are you made to feel afraid or neglected: No Advance Directives: Yes Advance Directives on File: Yes Advance Directives Date on File: 06/16/23 Do you have thoughts of harming others: None Do you have a plan to hurt others: No Plan Recently lost weight without trying: Unsure Nutrition Risks: No Nutritional Risk Patient : No service: No Meds Allergies Allergy/AdvReac Type Severity Reaction Status Date / Time codeine [Codeine] Allergy Intermediate ITCHING, Verified 06/22/23 22:02 VOMTING, THROAT SWELLS tramadol [TRAMADOL] Allergy Intermediate BODY Verified 06/22/23 22:02 SWELLING Active Medications: Current Medications Acetaminophen (Acetaminophen 325 Mg Tablet) 650 mg PO Q6H PRN PRN Reason: Pain, Mild (Pain Scale 1-3) Docusate Sodium (Docusate Sodium 100 Mg Capsule) 100 mg PO BID [facility] Last Admin: 08/08/23 08:14 Dose: Not Given Enoxaparin Sodium (Enoxaparin Sodium 40 Mg/0.4 Ml Syringe) 40 mg SUBCUT Q24H [facility] Last Admin: 08/07/23 17:22 Dose: 40 mg Ferrous Sulfate (Ferrous Sulfate 324 Mg Tablet.Dr) 324 mg PO DAILY [facility] Last Admin: 08/08/23 08:14 Dose: Not Given Piperacillin Sod/Tazobactam (Sod 3.375 gm/ Sodium Chloride) 50 mls @ 100 mls/hr IV Q6H [facility] Last Infusion: 08/08/23 12:00 Dose: Infused Lactated Ringer's (Lr) 1,000 mls @ 100 mls/hr IVCONT .Q10H [facility] Last Admin: 08/08/23 14:23 Dose: 100 mls/hr Vancomycin HCl 750 mg/ Sodium (Chloride) 265 mls @ 265 mls/hr IV Q12H [facility] Last Infusion: 08/08/23 09:54 Dose: Infused Methadone HCl (Methadone Hcl 20 Mg/2 Ml Oral.Conc) 100 mg PO DAILY [facility] Morphine Sulfate (Morphine Sulfate 4 Mg/Ml Cartridge) 4 mg IVPUSH Q3H PRN; Protocol PRN Reason: Pain, Severe (Pain Scale 7-10) Last Admin: 08/08/23 13:05 Dose: 4 mg Multivitamins/Vitamin C (Multivitamin Tablet) 1 tab PO DAILY [facility] Last Admin: 08/08/23 08:09 Dose: Not Given Nicotine (Nicotine 21 Mg Patch.Td24) 21 mg TRANSDERMA DAILY [facility] Last Admin: 08/08/23 08:10 Dose: Not Given Ondansetron HCl (Ondansetron Hcl 4 Mg/2 Ml Vial) 4 mg IVPUSH Q8H PRN PRN Reason: Nausea and Vomiting Pharmacy Consult (Consult Rx Vancomycin Dosing) 1 each MISCELLANE DAILY PRN PRN Reason: Consult order Pharmacy Consult (Consult Rx Vancomycin Dosing) 1 each MISCELLANE DAILY PRN PRN Reason: Consult order Senna (Sennosides 8.6 Mg Tablet) 17.2 mg PO BEDTIME PRN PRN Reason: Constipation Sodium Chloride (0.9 % Sodium Chloride Flush 3 Ml Syringe) 3 ml IVFLUSH QSHIFT [facility] Last Admin: 08/08/23 15:28 Dose: Not Given Home Medications Medication Instructions Recorded Confirmed Last Taken Type methadone 10 mg/mL oral concentrate 95 mg PO DAILY 07/28/23 07/28/23 07/24/23 06:00 History Physical Exam Vital Signs: Vital Signs: Last Vital Signs Temp 98.2 F 08/08/23 15:25 Pulse 64 08/08/23 15:25 Resp 18 08/08/23 15:25 BP 116/71 08/08/23 15:25 Pulse Ox 96 08/08/23 15:25 O2 Del Method Room Air 08/08/23 15:25 BMI result Body Mass Index 21.9 Const: General: cooperative HEENT: Head: Yes normal to inspection Face and sinus: Yes normal facial exam Mouth: Normal oral and palatal mucosa present Teeth and gingiva: dentition normal Eyes: General: appearance normal, both eyes and all related structures Pupils: Equal, round and reactive pupils present Resp: Effort & Inspection: normal respiratory effort Cardio: Rate: regular rate Rhythm: regular rhythm GI: Palpation (GI): Soft to palpation and nontender : General: Yes no CVA tenderness Back/Spine/Pelvis: Back: no CVA tenderness Skin: Other: open wound right buttock ,deep to bone General skin exam: no rashes or lesions noted Neuro: General: moves all extremities Cranial nerves: Yes Equal, round and reactive pupils present Extrem: General: Yes normal to inspection Psych: Appearance: grossly normal Results Labs 08/08/23 05:03 08/08/23 05:03 Labs: Short CBC 08/07/23 08/08/23 Range/Units 15:47 05:03 WBC 14.8 H 9.9 (4.8-10.8) X10*3/uL Hgb 10.0 L 9.0 L (12.0-16.0) g/dl Hct 33.1 L 30.4 L (37.0-47.0) % Plt Count 590 H D 475 H (160-400) X10*3/uL BMP 08/07/23 08/08/23 08/08/23 15:47 05:03 05:03 Sodium 139 144 Potassium 3.2 L 3.0 L Chloride 98 106 Carbon Dioxide 32 H 30 H BUN 8 L 7 L Creatinine 0.68 0.71 0.70 Calcium 9.1 8.5 D Liver Function 08/07/23 08/08/23 Range/Units 15:47 05:03 Total Bilirubin 0.5 0.4 (0.0-1.0) mg/dL AST 16 12 (5-31) U/L ALT 10 7 (0-31) U/L Alkaline Phosphatase 98 80 (39-117) U/L Albumin 3.0 L 2.6 L (3.5-5.0) g/dL Assessment and Plan (1) Osteomyelitis: Status: Acute Plan She has had prior MRSA bacteremia so there is concern over MRSA buttock area. She has OM Would give IV Vancomycin for six weeks and then po Doxycycline 100 mg bid for one to two months. Follow weekly CRP and ESR and Vancomycin trough and creatinine. Time Spent With Patient Time: Total time managing care of this patient today ____ minutes.
[2023-08-08] MEDS: Enoxaparin Sodium 40 MG/0.4 ML SYRINGE SUBCUT (16:32)
[2023-08-08] MEDS: 0.9 % Sodium Chloride Flush 3 ML SYRINGE IVFLUSH (20:04)
[2023-08-08] MEDS: Docusate Sodium 100 MG CAPSULE PO (20:06)
[2023-08-09] VITALS: BP 126/68; PULSE 78; RESP 18; TEMP 36.4; O2SAT 93
[2023-08-09] MEDS: Piperacillin Sodium/Tazobactam 3.375 GM in 0.9 % Sodium Chloride 50 ML IV ×4 (04:38→23:47)
[2023-08-09] MEDS: Morphine Sulfate 4 MG/ML CARTRIDGE IVPUSH ×5 (05:01→23:52)
[2023-08-09 06:04] LABS: Vancomycin Random 15.1 mcg/mL (15-20)
[2023-08-09 06:07] LABS: Anion Gap 11 (12-20); Blood Urea Nitrogen 5 mg/dL (9-16); Calcium 8.8 mg/dL (8.4-10.2); Carbon Dioxide 26 mmol/L (22-29); Chloride 109 mmol/L (96-108); Creatinine Clr Calc Pharmacy 82.4; Estimated Glomerular Filt Rate > 60; Glucose Random 86 mg/dL (60-115); Potassium 3.4 mmol/L (3.3-5.1); Sodium 143 mmol/L (135-145)
[2023-08-09] MEDS: OLANZapine 10 MG VIAL 5 MG IM (06:26)
[2023-08-09 06:27] LABS: ~HepC Num1 4.26 S/CO (0.00-0.79); ~Hepatitis C Antibody Reactive (Nonreactive)
[2023-08-09 06:29] LABS: HBS Num1 54.43 mIU/mL (0-7.99); HBc Num1 4.12 S/CO (0.00-0.79); HIV AB/AG Nonreactive (Nonreactive); HIV Num 1 0.06 S/CO (0.00-0.99); Hepatitis B Surface Antigen Negative (Negative); ~Hepatitis B Surface Antibody REACTIVE (Nonreactive)
[2023-08-09 07:14] LABS: HBc Num2 4.29 S/CO; HBc Num3 3.79 S/CO; Hepatitis B Core Antibody Reactive (Nonreactive)
[2023-08-09 08:10] VITALS: BP 136/87; PULSE 68; RESP 18; TEMP 36.5; O2SAT 97
[2023-08-09] MEDS: vancomycin HCL 750 MG in 0.9 % Sodium Chloride 250 ML 265 MG IV ×2 (08:56→18:43)
[2023-08-09] MEDS: 0.9 % Sodium Chloride Flush 3 ML SYRINGE IVFLUSH ×3 (08:59→23:55)
--- NOTE | 2023-08-09 09:18 | MHC.RECOVRN ---
This feature writer called patients [facility], [facility], Oksana GÓMEZ verified dose: 80mg methadone, 08/07/23 @6:43am. Verification faxed to pharmacy.
--- NOTE | 2023-08-09 09:44 | HE.PHANOTE ---
METHADONE CONFIRMATION RECEIVED FROM [facility] FOR 80MG LAST DOSE 08/07
[2023-08-09] MEDS: methADONE HCl 20 MG/2 ML ORAL.CONC 80 MG PO (09:56)
--- NOTE | 2023-08-09 10:55 | HO.PM.IMPN ---
Subjective Subjective Date of Service: 08/09/23 Interval History: no fever c/o pain Review of Systems Review of Systems: Yes all other systems are reviewed and are negative Physical Exam Vital Signs: Vital Signs: Last Vital Signs Temp 97.7 F 08/09/23 08:10 Pulse 68 08/09/23 08:10 Resp 18 08/09/23 08:10 BP 136/87 08/09/23 08:10 Pulse Ox 97 08/09/23 08:10 O2 Del Method Room Air 08/09/23 08:10 BMI result Body Mass Index 21.9 Gen: disheveled, poor hygiene HEENT: sclera anicteric, moist mucus membranes Neck: supple Lungs: clear to auscultation bilaterally Heart: regular rate and rhythm, no murmurs Abd: soft, non-tender, non-distended Ext: no edema Skin: large sacral decubitus ulcer Neuro: alert and oriented x3, paraplegia Psych: appropriate affect Objective Data Active Medications Acetaminophen (Acetaminophen 325 Mg Tablet) 650 mg PO Q6H PRN PRN Reason: Pain, Mild (Pain Scale 1-3) Docusate Sodium (Docusate Sodium 100 Mg Capsule) 100 mg PO BID [facility] Last Admin: 08/09/23 08:59 Dose: Not Given Documented By: RICHARDSON Non-Admin Reason: Patient Refused Enoxaparin Sodium (Enoxaparin Sodium 40 Mg/0.4 Ml Syringe) 40 mg SUBCUT Q24H [facility] Last Admin: 08/08/23 16:32 Dose: 40 mg Documented By: MILES Ferrous Sulfate (Ferrous Sulfate 324 Mg Tablet.) 324 mg PO DAILY [facility] Last Admin: 08/09/23 08:59 Dose: Not Given Documented By: RICHARDSON Non-Admin Reason: Patient Refused Piperacillin Sod/Tazobactam (Sod 3.375 gm/ Sodium Chloride) 50 mls @ 100 mls/hr IV Q6H [facility] Last Admin: 08/09/23 10:37 Dose: 100 mls/hr Documented By: RICHARDSON Vancomycin HCl 750 mg/ Sodium (Chloride) 265 mls @ 265 mls/hr IV Q12H [facility] Last Infusion: 08/09/23 09:59 Dose: Infused Documented By: RICHARDSON Methadone HCl (Methadone Hcl 20 Mg/2 Ml Oral.Conc) 80 mg PO DAILY [facility] Last Admin: 08/09/23 09:56 Dose: 80 mg Documented By: RICHARDSON Morphine Sulfate (Morphine Sulfate 4 Mg/Ml Cartridge) 4 mg IVPUSH Q3H PRN; Protocol PRN Reason: Pain, Severe (Pain Scale 7-10) Last Admin: 08/09/23 08:53 Dose: 4 mg Documented By: RICHARDSON Multivitamins/Vitamin C (Multivitamin Tablet) 1 tab PO DAILY [facility] Last Admin: 08/09/23 08:59 Dose: Not Given Documented By: RICHARDSON Non-Admin Reason: Patient Refused Nicotine (Nicotine 21 Mg Patch.Td24) 21 mg TRANSDERMA DAILY [facility] Last Admin: 08/09/23 08:58 Dose: Not Given Documented By: RICHARDSON Non-Admin Reason: Patient Refused Ondansetron HCl (Ondansetron Hcl 4 Mg/2 Ml Vial) 4 mg IVPUSH Q8H PRN PRN Reason: Nausea and Vomiting Pharmacy Consult (Consult Rx Vancomycin Dosing) 1 each MISCELLANE DAILY PRN PRN Reason: Consult order Pharmacy Consult (Consult Rx Vancomycin Dosing) 1 each MISCELLANE DAILY PRN PRN Reason: Consult order Senna (Sennosides 8.6 Mg Tablet) 17.2 mg PO BEDTIME PRN PRN Reason: Constipation Sodium Chloride (0.9 % Sodium Chloride Flush 3 Ml Syringe) 3 ml IVFLUSH QSHIFT [facility] Last Admin: 08/09/23 08:59 Dose: 3 ml Documented By: RICHARDSON Labs 08/08/23 05:03 08/09/23 05:40 Labs: Laboratory Results - last 24 hr 08/09/23 05:40 Anion Gap 11 L Estim Creat Clear Calc 82.4 Estimated GFR > 60 Random Glucose 86 Calcium 8.8 Random Vancomycin 15.1 Hep Bs Antigen Negative Hep Bs Antibody REACTIVE Hep B Core Total Ab Reactive Hep B Core IgM Ab Cancelled Hepatitis C Ab (EIA) Reactive H HIV 1&2 Ab/P24 Ag 4thGn Nonreactive Microbiology Microbiology Results: Microbiology 08/07/23 15:47 Blood Culture - Preliminary Blood - Venous No growth after 24 hours. 08/07/23 15:47 Blood Culture - Preliminary Blood - Venous No growth after 24 hours. Assessment and Plan (1) Osteomyelitis: Status: Acute Plan d3 47yo homeless, wheelchair-bound F [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 Discharged to her mother's home but never went there and has been living on the streets and not getting wound care. Presenting with worsening pain and discharge from the wound and found to have maggot infestation and osteomyelitis infected sacral decubitus ulcer ischial osteomyelitis - ID consulted, IV vanco x 6wk then PO doxy x 2mo, weekly CRP/ESR/Cr/vanco trough, ID outpt f/u - Wound Care consulted, Surgery consult pending for debridement, Wound Center f/u - follow BCx; will order PICC for 08/11/23 - wet-dry saline-soaked gauze daily - pain control with APAP, IV morphine microcytic anemia - repleting Fe hypoK - repleted tobacco abuse - NRT OUD - methadone resumed - HBV immune from prior infection; HCV positive + viral load pending; HIV negative - denies recent substance abuse but Utox 07/27/23 was positive for fentayl and cocaine; Addiction Med consult pending homelessness - CM consult FEN - added nutritional supplementation to promote wound healing VTE ppx - LMWH dispo - will need STR for wound care + IV ABX Time Spent With Patient Time: Total time managing care of this patient today __35__ minutes. Quality Stroke Does the patient have a stroke diagnosis?: No VTE Prior VTE?: No VTE Risk Level:: Medical - moderate - high VTE Device Contraindication: N/A - Device Ordered VTE Drug Contraindication: N/A - Med Ordered
--- NOTE | 2023-08-09 13:37 | MHC.RECOVRN ---
Addendum entered by Emily Mojica RN 08/09/23 17:02: Second attempt to meet with patient, patient sleeping, not able to wake up. T/W will return when pt alert. Original Note: This customs entry writer attempted to meet with patient, patient admittted for decubitus ulcer. This customs entry writer dropped off blanket for patient. Patient was sleeping.
[2023-08-09 15:37] VITALS: BP 132/85; PULSE 56; RESP 18; TEMP 36.6; O2SAT 98
[2023-08-09 15:52] VITALS: BP 132/85; PULSE 56; O2SAT 98
[2023-08-09] MEDS: Enoxaparin Sodium 40 MG/0.4 ML SYRINGE SUBCUT (18:17)
[2023-08-09] MEDS: Docusate Sodium 100 MG CAPSULE PO (20:03)
[2023-08-09 22:47] VITALS: BP 101/69; PULSE 64; RESP 14; TEMP 36.4; O2SAT 96
[2023-08-10] MEDS: Morphine Sulfate 4 MG/ML CARTRIDGE IVPUSH ×5 (04:14→20:32)
[2023-08-10] MEDS: OLANZapine 10 MG VIAL 5 MG IM (05:16)
[2023-08-10] MEDS: vancomycin HCL 750 MG in 0.9 % Sodium Chloride 250 ML 265 MG IV ×2 (06:17→18:01)
[2023-08-10 08:00] VITALS: BP 107/69; PULSE 63; RESP 16; TEMP 36.4; O2SAT 96
[2023-08-10] MEDS: Multivitamin TABLET 1 TAB PO (09:20)
[2023-08-10] MEDS: Ferrous Sulfate 324 MG TABLET.DR PO (09:20)
[2023-08-10] MEDS: Nicotine 21 MG PATCH.TD24 TRANSDERMA (09:20)
[2023-08-10] MEDS: methADONE HCl 20 MG/2 ML ORAL.CONC 80 MG PO (09:22)
[2023-08-10] MEDS: Nystatin Powder 15 GM BOTTLE 1 APPL TOPICAL ×3 (10:25→20:12)
--- NOTE | 2023-08-10 10:48 | HO.PM.IMPN ---
Subjective Subjective Date of Service: 08/10/23 Interval History: resumed methadone pain under control no fever Review of Systems Review of Systems: Yes all other systems are reviewed and are negative Physical Exam Vital Signs: Vital Signs: Last Vital Signs Temp 97.5 F 08/10/23 08:00 Pulse 63 08/10/23 08:00 Resp 16 08/10/23 08:00 BP 107/69 08/10/23 08:00 Pulse Ox 96 08/10/23 08:00 O2 Del Method Room Air 08/10/23 08:00 BMI result Body Mass Index 21.9 Gen: disheveled, poor hygiene, NAD HEENT: sclera anicteric, moist mucus membranes Neck: supple Lungs: clear to auscultation bilaterally Heart: regular rate and rhythm, no murmurs Abd: soft, non-tender, non-distended Ext: no edema Skin: large sacral decubitus ulcer Neuro: alert and oriented x3, paraplegia Psych: appropriate affect Objective Data Active Medications Acetaminophen (Acetaminophen 325 Mg Tablet) 650 mg PO Q6H PRN PRN Reason: Pain, Mild (Pain Scale 1-3) Docusate Sodium (Docusate Sodium 100 Mg Capsule) 100 mg PO BID [facility] Last Admin: 08/10/23 09:22 Dose: Not Given Documented By: LYNDON Non-Admin Reason: loose stool Enoxaparin Sodium (Enoxaparin Sodium 40 Mg/0.4 Ml Syringe) 40 mg SUBCUT Q24H [facility] Last Admin: 08/09/23 18:17 Dose: 40 mg Documented By: RICHARDSON Ferrous Sulfate (Ferrous Sulfate 324 Mg Tablet.Dr) 324 mg PO DAILY [facility] Last Admin: 08/10/23 09:20 Dose: 324 mg Documented By: LYNDON Vancomycin HCl 750 mg/ Sodium (Chloride) 265 mls @ 265 mls/hr IV Q12H [facility] Last Infusion: 08/10/23 07:32 Dose: Infused Documented By: LYNDON Methadone HCl (Methadone Hcl 20 Mg/2 Ml Oral.Conc) 80 mg PO DAILY [facility] Last Admin: 08/10/23 09:22 Dose: 80 mg Documented By: LYNDON Morphine Sulfate (Morphine Sulfate 4 Mg/Ml Cartridge) 4 mg IVPUSH Q3H PRN; Protocol PRN Reason: Pain, Severe (Pain Scale 7-10) Last Admin: 08/10/23 07:26 Dose: 4 mg Documented By: LYNDON Multivitamins/Vitamin C (Multivitamin Tablet) 1 tab PO DAILY [facility] Last Admin: 08/10/23 09:20 Dose: 1 tab Documented By: LYNDON Nicotine (Nicotine 21 Mg Patch.Td24) 21 mg TRANSDERMA DAILY [facility] Last Admin: 08/10/23 09:20 Dose: 21 mg Documented By: LYNDON Nystatin (Nystatin Powder 15 Gm Bottle) 1 appl TOPICAL TID [facility]; Protocol Last Admin: 08/10/23 10:25 Dose: 1 appl Documented By: LYNDON Ondansetron HCl (Ondansetron Hcl 4 Mg/2 Ml Vial) 4 mg IVPUSH Q8H PRN PRN Reason: Nausea and Vomiting Pharmacy Consult (Consult Rx Vancomycin Dosing) 1 each MISCELLANE DAILY PRN PRN Reason: Consult order Pharmacy Consult (Consult Rx Vancomycin Dosing) 1 each MISCELLANE DAILY PRN PRN Reason: Consult order Senna (Sennosides 8.6 Mg Tablet) 17.2 mg PO BEDTIME PRN PRN Reason: Constipation Sodium Chloride (0.9 % Sodium Chloride Flush 3 Ml Syringe) 3 ml IVFLUSH QSHIFT [facility] Last Admin: 08/10/23 07:32 Dose: Not Given Documented By: LYNDON Non-Admin Reason: IV Running Labs 08/08/23 05:03 08/09/23 05:40 Microbiology Microbiology Results: Microbiology 08/07/23 15:47 Blood Culture - Preliminary Blood - Venous No growth after 48 hours. 08/07/23 15:47 Blood Culture - Preliminary Blood - Venous No growth after 48 hours. 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 Discharged to her mother's home but never went there and has been living on the streets and not getting wound care. Presenting with worsening pain and discharge from the wound and found to have maggot infestation and osteomyelitis infected sacral decubitus ulcer ischial osteomyelitis - ID consulted, IV vanco x 6wk then PO doxy x 2mo, weekly CRP/ESR/Cr/vanco trough, ID outpt f/u - BCx negative; will order PICC for 08/11/23 - Wound Care consulted, Surgery consult pending for debridement, Wound Center f/u - wet-dry saline-soaked gauze daily - pain control with APAP, IV morphine microcytic anemia - repleting Fe hypoK - repleted tobacco abuse - NRT OUD - methadone resumed - HBV immune from prior infection; HCV positive + viral load pending; HIV negative - denies recent substance abuse but Utox 07/27/23 was positive for fentayl and cocaine; Addiction Med consult pending homelessness - CM consult FEN - added nutritional supplementation to promote wound healing VTE ppx - LMWH dispo - will need STR for wound care + IV ABX In my clinical judgment, the patient requires continued inpatient hospitalization for the following reasons: IV ABX, PICC line, wound care, placement Time Spent With Patient Time: Total time managing care of this patient today 35____ minutes. Quality Stroke Does the patient have a stroke diagnosis?: No VTE Prior VTE?: No VTE Risk Level:: Medical - moderate - high VTE Device Contraindication: N/A - Device Ordered VTE Drug Contraindication: N/A - Med Ordered
--- NOTE | 2023-08-10 11:28 | MHC.RECOVRN ---
This mortgage loan underwriter met with patient, patient was resting in bed. Pt denied cravings, withdrawal. Pt reports doing well on MTD dose. Pt reports pain has been well managed.
[2023-08-10] MEDS: 0.9 % Sodium Chloride Flush 3 ML SYRINGE IVFLUSH (13:05)
--- NOTE | 2023-08-10 15:11 | PC.NURSE ---
Wound care done at 1400, pt had a large BM and soiled dressing. Wound base with granulation, slough and necrotic tissue. Large SS drainage, no odor noted, surrounding skin red, tolerated wound care.
[2023-08-10 15:38] VITALS: BP 112/64; PULSE 72; RESP 20; TEMP 36.2; O2SAT 94
--- NOTE | 2023-08-10 16:11 | MHC.CM.PN ---
PTS MOTHER APPROACHED HECTOR AND REPORTED SHE HAD FILED A SECTION 35 ON THE PATIENT HECTOR EXPLAINED THE PT WOULD NOT BE ABLE TO GO TO A TREATMENT FACILITY IN HER CURRENT CONDITION AND WOULD HAVE TO BE MEDICALLY CLEARED AND FULLY INDEPENDENT WITH CARE BEFORE THEY WOULD TAKE HER PTS MOTHER ASKED THAT SHE BE CONTACTED WHEN PT LEAVE HECTOR EXPLAINED THAT WOULD REQUIRE PTS PERMISSION HOWEVER IF THERE IS STILL A SECTION 35, HECTOR WOULD TYPICALLY CALL THE POLICE DEPARTMENT AT [place] CM REITERATED THE PT WOULD NOT BE ABLE TO GO TO A TREATMENT FACILITY IN HER CURRENT CONDITION MOTHER REPORTS UNDERSTANDING
[2023-08-10] MEDS: Enoxaparin Sodium 40 MG/0.4 ML SYRINGE SUBCUT (17:23)
[2023-08-10 17:42] LABS: Vancomycin Trough 14.1 mcg/mL (10.0-20.0)
--- NOTE | 2023-08-10 18:02 | HE.PHANOTE ---
VANCO DOSE ADJUSTMENT BASED ON SCR AND TROUGH OF 14.1 DOSE CONTINUED AT 750 Q 12H. NEXT TROUGH 08/11 @ 0500
[2023-08-10 18:35] LABS: Creatinine Clr Calc Pharmacy 68.9; Estimated Glomerular Filt Rate > 60
[2023-08-10] MEDS: Acetaminophen 325 MG TABLET 650 MG PO (20:11)
[2023-08-10 23:36] VITALS: BP 130/65; PULSE 76; RESP 16; TEMP 36.3; O2SAT 97
[2023-08-11] MEDS: 0.9 % Sodium Chloride Flush 3 ML SYRINGE IVFLUSH ×4 (00:05→23:55)
[2023-08-11] MEDS: Morphine Sulfate 4 MG/ML CARTRIDGE IVPUSH ×7 (04:28→23:55)
[2023-08-11 06:27] LABS: Creatinine Clr Calc Pharmacy 76.6; Estimated Glomerular Filt Rate > 60
[2023-08-11] MEDS: vancomycin HCL 750 MG in 0.9 % Sodium Chloride 250 ML 265 MG IV ×2 (06:29→19:27)
--- NOTE | 2023-08-11 07:17 | HE.PHANOTE ---
ERAN TONEY CONTINUE CURRENT DOSE, NEXT LEVEL DUE 08/12 @0500 WANDY
[2023-08-11 08:00] VITALS: BP 117/81; PULSE 93; RESP 18; TEMP 36.4; O2SAT 93
[2023-08-11] MEDS: Nicotine 21 MG PATCH.TD24 TRANSDERMA (08:00)
[2023-08-11] MEDS: methADONE HCl 20 MG/2 ML ORAL.CONC 80 MG PO (08:00)
--- NOTE | 2023-08-11 09:59 | P.PNIM_ITS ---
Subjective Subjective Date of Service: 08/11/23 Interval History: Awake alert, good pain control offers no acute complaints tolerating diet no nausea, no vomiting ,no abdominal pain, noted to have incontinent of stool, no fevers no chills no other issues overnight. Review of Systems All other system reviewed and negative. Physical Exam 2 Vital Signs: Vital Signs: Last Vital Signs Temp 97.5 F 08/11/23 08:00 Pulse 93 08/11/23 08:00 Resp 18 08/11/23 08:00 BP 117/81 08/11/23 08:00 Pulse Ox 93 08/11/23 08:00 O2 Del Method Room Air 08/11/23 08:00 BMI result Body Mass Index 21.9 Const: Other: Gen: Awake alert resting in bed in no acute distress HEENT: sclera anicteric, moist mucus membranes Neck: supple Lungs: clear to auscultation bilaterally Heart: regular rate and rhythm, no murmurs Abd: soft, non-tender, non-distended Ext: no edema, contraction deformity both knees Skin: large right ischial decubitus ulcer Neuro: alert and oriented x3, paraplegia Psych: appropriate affect Objective Data Active Medications Acetaminophen (Acetaminophen 325 Mg Tablet) 650 mg PO Q6H PRN PRN Reason: Pain, Mild (Pain Scale 1-3) Last Admin: 08/10/23 20:11 Dose: 650 mg Documented By: AME Docusate Sodium (Docusate Sodium 100 Mg Capsule) 100 mg PO BID [facility] Last Admin: 08/11/23 08:10 Dose: Not Given Documented By: CRISTINA Non-Admin Reason: Patient Refused Enoxaparin Sodium (Enoxaparin Sodium 40 Mg/0.4 Ml Syringe) 40 mg SUBCUT Q24H [facility] Last Admin: 08/10/23 17:23 Dose: 40 mg Documented By: LYNDON Ferrous Sulfate (Ferrous Sulfate 324 Mg Tablet.Dr) 324 mg PO DAILY [facility] Last Admin: 08/11/23 08:10 Dose: Not Given Documented By: CRISTINA Non-Admin Reason: Patient Refused Vancomycin HCl 750 mg/ Sodium (Chloride) 265 mls @ 265 mls/hr IV Q12H [facility] Last Infusion: 08/11/23 07:31 Dose: Infused Documented By: CRISTINA Methadone HCl (Methadone Hcl 20 Mg/2 Ml Oral.Conc) 80 mg PO DAILY [facility] Last Admin: 08/11/23 08:00 Dose: 80 mg Documented By: CRISTINA Morphine Sulfate (Morphine Sulfate 4 Mg/Ml Cartridge) 4 mg IVPUSH Q3H PRN; Protocol PRN Reason: Pain, Severe (Pain Scale 7-10) Last Admin: 08/11/23 08:00 Dose: 4 mg Documented By: CRISTINA Multivitamins/Vitamin C (Multivitamin Tablet) 1 tab PO DAILY [facility] Last Admin: 08/11/23 08:10 Dose: Not Given Documented By: CRISTINA Non-Admin Reason: Patient Refused Nicotine (Nicotine 21 Mg Patch.Td24) 21 mg TRANSDERMA DAILY [facility] Last Admin: 08/11/23 08:00 Dose: 21 mg Documented By: CRISTINA Nystatin (Nystatin Powder 15 Gm Bottle) 1 appl TOPICAL TID [facility]; Protocol Last Admin: 08/10/23 20:12 Dose: 1 appl Documented By: JEANNEQC Ondansetron HCl (Ondansetron Hcl 4 Mg/2 Ml Vial) 4 mg IVPUSH Q8H PRN PRN Reason: Nausea and Vomiting Pharmacy Consult (Consult Rx Vancomycin Dosing) 1 each MISCELLANE DAILY PRN PRN Reason: Consult order Pharmacy Consult (Consult Rx Vancomycin Dosing) 1 each MISCELLANE DAILY PRN PRN Reason: Consult order Senna (Sennosides 8.6 Mg Tablet) 17.2 mg PO BEDTIME PRN PRN Reason: Constipation Sodium Chloride (0.9 % Sodium Chloride Flush 3 Ml Syringe) 3 ml IVFLUSH QSHIFT [facility] Last Admin: 08/11/23 08:01 Dose: 3 ml Documented By: CRISTINA Labs 08/08/23 05:03 08/11/23 06:08 Labs: Laboratory Results - last 24 hr 08/10/23 08/11/23 17:10 06:08 Estim Creat Clear Calc 68.9 76.6 Estimated GFR > 60 > 60 Vancomycin Trough 14.1 Assessment and Plan (1) Osteomyelitis: Status: Acute Plan 47yo homeless, wheelchair-bound F [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 Discharged to her mother's home but never went there and has been living on the streets and not getting wound care. Presenting with worsening pain and discharge from the wound and found to have maggot infestation and osteomyelitis infected ischial decubitus ulcer ischial osteomyelitis - ID consulted, IV vanco x 6wk then PO doxy x 2mo, weekly CRP/ESR/Cr/vanco trough, outpatient ID follow-up - BCx negative; PICC is scheduled for today , WBC normalized - seen by Dr. Bishop he recommended diverting colostomy due to stooling, will place a Braun catheter - continue dressing change as per General surgery and Wound Care - good pain control with APAP, IV morphine microcytic anemia - repleting Fe hypoK - repleted, potassium normalized tobacco abuse - NRT OUD - continue methadone - HBV immune from prior infection; HCV positive , HIV negative - denies recent substance abuse but Utox 07/27/23 was positive for fentayl and cocaine; seen by Addiction medication patient denied cravings or withdrawal symptoms felt doing well on methadone homelessness - will need short-term rehab placement, CM aware. FEN - added nutritional supplementation to promote wound healing VTE ppx - LMWH dispo - will need STR for wound care + IV ABX In my clinical judgment, the patient requires continued inpatient hospitalization for the following reasons: IV ABX, PICC line, wound care, and surgical intervention. Time Spent With Patient Time: Total time managing care of this patient today ____ minutes. Quality Stroke Does the patient have a stroke diagnosis?: No VTE Prior VTE?: No VTE Risk Level:: Medical - moderate - high VTE Device Contraindication: N/A - Device Ordered VTE Drug Contraindication: N/A - Med Ordered
--- NOTE | 2023-08-11 11:01 | P.CONGS_ITS ---
History of Present Illness Consult details Consult date: 08/11/23 <Agnes Saleem PA-C - Last Filed: 08/11/23 11:21> Requesting physician: Renetta Shah <SOLOMON Crum Last Filed: 08/11/23 11:21> Narrative: 47 year old female with hx polysubstance abuse, opioid use disorder on methadone, mood disorder, history of thoracic vertebral osteomyelitis requiring C5-T4 fusion and T1-T2 laminectomies on 02/12/23 and is homeless and wheelchair- bound. She was recently admitted to [facility] [place] 07/26-07/30/23 for necrotic decubitus ulcer requiring debridement into muscle. There was no evidence of osteomyelitis at that time. She was discharged on doxycycline and Augmentin. She was going to live with her mother, who was supposed to change the wound but has been staying on the streets and not caring for her wound. She was readmitted with worsening pain at the decubitus ulcer and was found to have maggots present in the wound. Pelvic CT showed focal osteopenia, cortical thinning and bone loss to the right posterior ischial tuberosity suggestive of osteomyelitis. She was admitted to the hospitalist service for further treatment. She is on IV vanco. Surgery was consulted for the wound. <Agnes Saleem PA-C - Last Filed: 08/11/23 11:21> Review of Systems 2 Constitutional: Constitutional: Denies chills and Denies fever(s) < SOLOMON Crum Last Filed: 08/11/23 11:21> Cardiovascular: Cardiovascular: Denies chest pain, Denies palpitations and Denies dyspnea <SOLOMON Crum Last Filed: 08/11/23 11:21> Respiratory: Respiratory: Denies dyspnea <SOLOMON Crum Last Filed: 08/11/23 11:21> Gastrointestinal: Gastrointestinal: Denies abdominal pain, Denies nausea and Denies vomiting <SOLOMON Crum Last Filed: 08/11/23 11:21> Integumentary/Breasts: Skin/Breast: Denies rash and Denies jaundice < SOLOMON Crum Last Filed: 08/11/23 11:21> Endocrine: Endocrine: Denies palpitations <Agnes Saleem PA-C - Last Filed: 08/11/23 11:21> PMFSH Past Medical History Medical History: Medical History History of osteomyelitis Cocaine use disorder Opioid use disorder Anemia Polysubstance (including opioids) dependence, daily use Drug abuse in remission Asthma <Agnes Saleem PA-C - Last Filed: 08/11/23 11:21> Family History Family history: reviewed and not pertinent <Agnes Saleem PA-C - Last Filed: 08/11/23 11:21> Surgical History Surgical History: Surgical History History of spinal fusion <Agnes Saleem PA-C - Last Filed: 08/11/23 11:21> Social History Social History: Social History Household Members: None Household Members Other:: homeless Housing: Homeless Housing Other:: homeless Do you presently have visiting nurse or other home services: No Alcohol intake: never Patient Tobacco Use Status: Never used Tobacco Tobacco use type: Cigarette Cigarettes Per Day: 2 Use of substances other than those prescribed or required for medical reasons: No Substance Use Type: Former Substance User Currently Displaying Signs/Symptoms of Drug Intoxication Withdrawal: No Have you been hit, kicked, punched, or otherwise hurt by someone within the past year? If so, by whom?: No Do you feel safe in your current relationship?: No Current Relationship Is there a partner from a previous relationship who is making you feel unsafe now?: No Are you made to feel afraid or neglected: No Are you DNR?: No Advance Directives: Yes Advance Directives on File: Yes Advance Directives Date on File: 06/16/23 Do you have thoughts of harming others: None Do you have a plan to hurt others: No Plan Recently lost weight without trying: Unsure Nutrition Risks: No Nutritional Risk Patient : No service: No <Agnes Saleem PA-C - Last Filed: 08/11/23 11:21> Meds Allergies/Adverse reactions: Allergies Allergy/AdvReac Type Severity Reaction Status Date / Time codeine [Codeine] Allergy Intermediate ITCHING, Verified 06/22/23 22:02 VOMTING, THROAT SWELLS tramadol [TRAMADOL] Allergy Intermediate BODY Verified 06/22/23 22:02 SWELLING <Agnes Saleem PA-C - Last Filed: 08/11/23 11:21> Active Medications: Current Medications Acetaminophen (Acetaminophen 325 Mg Tablet) 650 mg PO Q6H PRN PRN Reason: Pain, Mild (Pain Scale 1-3) Last Admin: 08/10/23 20:11 Dose: 650 mg Docusate Sodium (Docusate Sodium 100 Mg Capsule) 100 mg PO BID [facility] Last Admin: 08/11/23 08:10 Dose: Not Given Enoxaparin Sodium (Enoxaparin Sodium 40 Mg/0.4 Ml Syringe) 40 mg SUBCUT Q24H [facility] Last Admin: 08/10/23 17:23 Dose: 40 mg Ferrous Sulfate (Ferrous Sulfate 324 Mg Tablet.Dr) 324 mg PO DAILY [facility] Last Admin: 08/11/23 08:10 Dose: Not Given Vancomycin HCl 750 mg/ Sodium (Chloride) 265 mls @ 265 mls/hr IV Q12H [facility] Last Infusion: 08/11/23 07:31 Dose: Infused Methadone HCl (Methadone Hcl 20 Mg/2 Ml Oral.Conc) 80 mg PO DAILY [facility] Last Admin: 08/11/23 08:00 Dose: 80 mg Morphine Sulfate (Morphine Sulfate 4 Mg/Ml Cartridge) 4 mg IVPUSH Q3H PRN; Protocol PRN Reason: Pain, Severe (Pain Scale 7-10) Last Admin: 08/11/23 08:00 Dose: 4 mg Multivitamins/Vitamin C (Multivitamin Tablet) 1 tab PO DAILY [facility] Last Admin: 08/11/23 08:10 Dose: Not Given Nicotine (Nicotine 21 Mg Patch.Td24) 21 mg TRANSDERMA DAILY [facility] Last Admin: 08/11/23 08:00 Dose: 21 mg Nystatin (Nystatin Powder 15 Gm Bottle) 1 appl TOPICAL TID [facility]; Protocol Last Admin: 08/10/23 20:12 Dose: 1 appl Ondansetron HCl (Ondansetron Hcl 4 Mg/2 Ml Vial) 4 mg IVPUSH Q8H PRN PRN Reason: Nausea and Vomiting Pharmacy Consult (Consult Rx Vancomycin Dosing) 1 each MISCELLANE DAILY PRN PRN Reason: Consult order Pharmacy Consult (Consult Rx Vancomycin Dosing) 1 each MISCELLANE DAILY PRN PRN Reason: Consult order Senna (Sennosides 8.6 Mg Tablet) 17.2 mg PO BEDTIME PRN PRN Reason: Constipation Sodium Chloride (0.9 % Sodium Chloride Flush 3 Ml Syringe) [facility] Admin: 08/11/23 08:01 Dose: 3 ml <SOLOMON Crum Last Filed: 08/11/23 11:21> Home medications: Home Medications Medication Instructions Recorded Confirmed Last Taken Type methadone 10 mg/mL oral concentrate 80 mg PO DAILY 07/28/23 08/09/23 08/07/23 History <SOLOMON Crum Last Filed: 08/11/23 11:21> Physical Exam 2 Vital Signs: Vital Signs: Last Vital Signs Temp 97.5 F 08/11/23 08:00 Pulse 93 08/11/23 08:00 Resp 18 08/11/23 08:00 BP 117/81 08/11/23 08:00 Pulse Ox 93 08/11/23 08:00 O2 Del Method Room Air 08/11/23 08:00 BMI result Body Mass Index 21.9 <SOLOMON Crum Last Filed: 08/11/23 11:21> Const: General: comfortable, no acute distress and alert <SOLOMON Crum Last Filed: 08/11/23 11:21> Orientation/consciousness: patient oriented x3 <SOLOMON Crum Last Filed: 08/11/23 11:21> Resp: Effort & Inspection: normal respiratory effort <SOLOMON Crum Last Filed: 08/11/23 11:21> Cardio: Rate: regular rate <SOLOMON Crum Filed: 08/11/23 11:21> GI: Inspection: No distended <SOLOMON Crum Last Filed: 08/11/23 11:21> Palpation (GI): Soft to palpation and nontender <SOLOMON Crum Filed: 08/11/23 11:21> Skin: Other: large ulcer 9cm x 7 cm x 3 cm overlying right ischium, tunnels 4cm proximally and bone is palpable; wound base with good granulation tissue; fascia present superiorly; no maggots present; inferiorly there are small eschars present <Agnes GuamanTYRELL qureshiSaturnino Sommers Last Filed: 08/11/23 11:21> Neuro: General: patient oriented x3 <Agnes GuamanTYRELL qureshiSaturnino Sommers Last Filed: 08/11/23 11:21> Extrem: Other: b/l legs contracted <Agnes GuamanVENTURA qureshiCandice Last Filed: 08/11/23 11:21> Results Labs Result diagrams: 08/08/23 05:03 08/12/23 06:40 <Agnes GuamanVENTURA qureshiCandice Sommers Last Filed: 08/11/23 11:21> Labs: BMP 08/10/23 08/11/23 17:10 06:08 Creatinine 0.79 0.71 All other labs normal. <Agnes GuamanVENTURA qureshiCandice Sommers Last Filed: 08/11/23 11:21> Assessment and Plan (1) Osteomyelitis: Qualifiers: Osteomyelitis location: other site Osteomyelitis type: o ther acute Qualified Code(s): M86.18 - Other acute osteomyelitis, other site < Agnes Guamankiera VENTURAMatthieuSaturnino Sommers Last Filed: 08/11/23 11:21> Status: Acute <Agnes HarperTYRELL qureshiSaturnino Sommers Last Filed: 08/11/23 11:21> (2) Decubitus ulcer: Qualifiers: Pressure injury location: sacral region Pressure injury stage: stage 3 Qualified Code(s): L89.153 - Pressure ulcer of sacral region, stage 3 <Agnes GuamanTYRELL qureshiSaturnino Sommers Last Filed: 08/11/23 11:21> Status: Acute <Agnes HarperTYRELL qureshiSaturnino Sommers Filed: 08/11/23 11:21> History reviewed She has this large, decubitus ulcer on the left buttock area, deep all the way to the bone Osteomyelitis of the ischial tuberosity suggested by his CAT scan She is bed-bound with lower extremity contractures, paraplegia although able to move her toes She describes incontinence with frequent soiling I explained to her the option of proceeding with diverting colostomy to allow better care of her ulcer Hopefully, this will also make her amenable to a wound VAC down the line I explained to her the technique of this procedure as well as the risks, including but not limited to bleeding, infections, inherent risk of anesthesia, bowel injury, stoma complications She says she wants to proceed I also plan to do debridement of the right buttock wound at the same time The above plan was discussed with the Wound Care Provider Edilia - she is in agreement Seen and examined independently <Stephen Bishop MD - Last Filed: 08/12/23 15:05> 47 year old female with hx polysubstance abuse, opioid use disorder on methadone, mood disorder, history of thoracic vertebral osteomyelitis requiring C5-T4 fusion and T1-T2 laminectomies on 02/12/23, homeless and wheelchair-bound with decubitus ulcer overlying right ischium with osteomyelitis. The ulcer is mostly clean with good granulation tissue but does have superficial eschars inferiorly. Due to the size, it would benefit from wound vac however this would likely require diverting colostomy as it is very close to the rectum. Wet to dry fluffs followed by abd dressing placed for now. Can continue dressing changes daily and will continue discussion regarding further wound care with her. Cont IV abx as per ID. <Agnes Saleem PA-C - Last Filed: 08/11/23 11:21> Time Spent With Patient Time: Total time managing care of this patient today ____ minutes. <Agnes Saleem PA-C - Last Filed: 08/11/23 11:21> Procedures Date of Service Date of Service: 08/11/23 <Agnes Saleem PA-C - Last Filed: 08/11/23 11:21> 08/12/23 <Stephen Bishop MD - Last Filed: 08/12/23 15:05>
[2023-08-11] MEDS: Nystatin Powder 15 GM BOTTLE 1 APPL TOPICAL ×3 (13:18→20:43)
--- NOTE | 2023-08-11 13:24 | MHC.CLN ---
F/U DIET=REGULAR. SUPPLEMENTS ORDERED TO IMPROVE NUTRITIONAL INTAKE AND PROMOTE WOUND HEALING: ENSURE MAX BID PROVIDES 300 KCALS, 60 G PROTEIN. GELATEIN BID PROVIDES 320 KCALS, 40 G PROTEIN. PATIENT WITH INFECTED WOUND TO SACRUM. REGULAR DIET WITH SUPPLEMENT APPROPRIATE. INTAKE PER DOC VARIABLE, BUT APPEARS POOR MOST MEALS. FOLLOW FOR INTAKE AND WOUND HEALING.
--- NOTE | 2023-08-11 13:34 | MHC.CM.PN ---
according to dr mac pt to go to or tomorrow for a stoma she will florin win is interested referral placed
[2023-08-11 15:35] VITALS: BP 108/58; PULSE 62; RESP 57; TEMP 36.1; O2SAT 95
--- NOTE | 2023-08-11 17:34 | MHC.RECOVRN ---
This underwriter met with patient, patient resting in bed, quiet, lights dim. Pt reports anxiety, feeling depressed. Pt reports anxiety related to procedure tomorrow and feeling like its alot . This underwriter dropped off coloring pages as a distraction tool. Pt thankful. Reviewed with RN patients reports of anxiety.
--- NOTE | 2023-08-11 18:11 | PC.NURSE ---
patient refused lovenox,Dr. Dan notified
[2023-08-11 19:21] VITALS: BP 115/75; PULSE 62; RESP 18; TEMP 36.6; O2SAT 97
[2023-08-11] MEDS: LORazepam 0.5 MG TABLET PO (19:26)
[2023-08-11 23:51] VITALS: BP 111/66; PULSE 65; RESP 18; TEMP 36.4; O2SAT 93
[2023-08-12] VITALS (14 sets, daily range): BP systolic 109–152; BP diastolic 68–91; PULSE 51–68; RESP 11–20; TEMP 36.1–37.2; O2SAT 94–100
[2023-08-12] MEDS: Morphine Sulfate 4 MG/ML CARTRIDGE IVPUSH ×5 (03:00→22:36)
[2023-08-12 06:58] LABS: Vancomycin Random 12.5 mcg/mL (15-20)
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
--- NOTE | 2023-08-12 08:11 | PC.NURSE ---
pt refusing the type and screen will amkw dr maddox and anesthesia aware
--- NOTE | 2023-08-12 08:34 | P.CONAN_ITS ---
HPI - Anesthesia Eval Consult details Narrative: for diverting colostomy , debridement right buttock PMFSH Active Problems Active Problems: All Active Problems (Updated 08/11/23 @ 11:17 by Agnes Saleem PA-C) Osteomyelitis (Acute) History of osteomyelitis (Acute) Decubitus ulcer (Acute) Cellulitis of arm, left (Acute) Weakness (Acute) Pneumonia (Acute) Past Medical History Medical History History of osteomyelitis Cocaine use disorder Opioid use disorder Anemia Polysubstance (including opioids) dependence, daily use Drug abuse in remission Asthma Patient : No Family History Family history of problems with anesthesia: No Surgical History Surgical History History of spinal fusion History of Problems with Anesthesia: No Social History Social History Household Members: None Household Members Other:: homeless Housing: Homeless Housing Other:: homeless Do you presently have visiting nurse or other home services: No Alcohol intake: never Patient Tobacco Use Status: Never used Tobacco Tobacco use type: Cigarette Cigarettes Per Day: 2 Use of substances other than those prescribed or required for medical reasons: No Substance Use Type: Former Substance User Currently Displaying Signs/Symptoms of Drug Intoxication Withdrawal: No Have you been hit, kicked, punched, or otherwise hurt by someone within the past year? If so, by whom?: No Do you feel safe in your current relationship?: No Current Relationship Is there a partner from a previous relationship who is making you feel unsafe now?: No Are you made to feel afraid or neglected: No Are you DNR?: No Advance Directives: Yes Advance Directives on File: Yes Advance Directives Date on File: 06/16/23 Do you have thoughts of harming others: None Do you have a plan to hurt others: No Plan Recently lost weight without trying: Unsure Nutrition Risks: No Nutritional Risk Patient : No service: No Meds Allergies Allergy/AdvReac Type Severity Reaction Status Date / Time codeine [Codeine] Allergy Intermediate ITCHING, Verified 06/22/23 22:02 VOMTING, THROAT SWELLS tramadol [TRAMADOL] Allergy Intermediate BODY Verified 06/22/23 22:02 SWELLING Active Medications: Current Medications Acetaminophen (Acetaminophen 325 Mg Tablet) 650 mg PO Q6H PRN PRN Reason: Pain, Mild (Pain Scale 1-3) Last Admin: 08/10/23 20:11 Dose: 650 mg Docusate Sodium (Docusate Sodium 100 Mg Capsule) 100 mg PO BID [facility] Last Admin: 08/11/23 20:42 Dose: Not Given Enoxaparin Sodium (Enoxaparin Sodium 40 Mg/0.4 Ml Syringe) 40 mg SUBCUT Q24H [facility] Last Admin: 08/11/23 18:08 Dose: Not Given Ferrous Sulfate (Ferrous Sulfate 324 Mg Tablet.Dr) 324 mg PO DAILY [facility] Last Admin: 08/11/23 08:10 Dose: Not Given Vancomycin HCl 750 mg/ Sodium (Chloride) 265 mls @ 265 mls/hr IV Q12H [facility] Last Infusion: 08/11/23 20:40 Dose: Infused Cefotetan Disodium 2 gm/ (Sodium Chloride) 50 mls @ 100 mls/hr IV PREOP ONE Stop: 08/12/23 09:29 Lorazepam (Lorazepam 0.5 Mg Tablet) 0.5 mg PO Q12H PRN PRN Reason: anxiety Last Admin: 08/11/23 19:26 Dose: 0.5 mg Methadone HCl (Methadone Hcl 20 Mg/2 Ml Oral.Conc) 80 mg PO DAILY [facility] Last Admin: 08/11/23 08:00 Dose: 80 mg Morphine Sulfate (Morphine Sulfate 4 Mg/Ml Cartridge) 4 mg IVPUSH Q3H PRN; Protocol PRN Reason: Pain, Severe (Pain Scale 7-10) Last Admin: 08/12/23 06:49 Dose: 4 mg Multivitamins/Vitamin C (Multivitamin Tablet) 1 tab PO DAILY [facility] Last Admin: 08/11/23 08:10 Dose: Not Given Nicotine (Nicotine 21 Mg Patch.Td24) 21 mg TRANSDERMA DAILY [facility] Last Admin: 08/11/23 08:00 Dose: 21 mg Nystatin (Nystatin Powder 15 Gm Bottle) 1 appl TOPICAL TID [facility]; Protocol Last Admin: 08/11/23 20:43 Dose: 1 appl Ondansetron HCl (Ondansetron Hcl 4 Mg/2 Ml Vial) 4 mg IVPUSH Q8H PRN PRN Reason: Nausea and Vomiting Pharmacy Consult (Consult Rx Vancomycin Dosing) 1 each MISCELLANE DAILY PRN PRN Reason: Consult order Pharmacy Consult (Consult Rx Vancomycin Dosing) 1 each MISCELLANE DAILY PRN PRN Reason: Consult order Senna (Sennosides 8.6 Mg Tablet) 17.2 mg PO BEDTIME PRN PRN Reason: Constipation Sodium Chloride (0.9 % Sodium Chloride Flush 3 Ml Syringe) 3 ml IVFLUSH QSHIFT [facility] Last Admin: 08/11/23 23:55 Dose: 3 ml Home Medications Medication Instructions Recorded Confirmed Last Taken Type methadone 10 mg/mL oral concentrate 80 mg PO DAILY 07/28/23 08/09/23 08/07/23 History Exam Exam Date and Time: August 12, 2023 0834 Height,Weight and Vital Signs: Height 5 ft 2 in Weight 54.4 kg Last Vital Signs Temp 96.9 F 08/12/23 08:03 Pulse 63 08/12/23 08:03 Resp 20 08/12/23 08:03 BP 109/68 08/12/23 08:03 Pulse Ox 96 08/12/23 08:03 O2 Del Method Room Air 08/12/23 08:03 Pertinent Lab Results Pertinent Lab Results: Laboratory Tests 08/07/23 08/08/23 08/08/23 15:47 05:03 05:03 WBC 14.8 H 9.9 RBC 4.21 3.71 L Hgb 10.0 L 9.0 L Hct 33.1 L 30.4 L MCV 78.6 L 81.9 MCH 23.8 L 24.3 L MCHC 30.2 L 29.6 L RDW 17.4 H 17.4 H Plt Count 590 H D 475 H MPV 9.8 10.6 Immature Gran % (Auto) 0.3 0.4 Neut % (Auto) 82.6 H 69.1 Lymph % (Auto) 9.1 L 21.9 [place] % (Auto) 6.7 6.8 Eos % (Auto) 0.8 1.3 Baso % (Auto) 0.5 0.5 Lymph # (Auto) 1.4 2.2 [place] # (Auto) 1.0 0.7 Eos # (Auto) 0.1 0.1 Baso # (Auto) 0.1 0.1 Abs Immat Gran (auto) 0.05 H 0.04 H Absolute Neuts (auto) 12.2 H 6.8 Absolute Nucleated RBC 0.000 0.000 Nucleated RBC % (auto) 0.0 0.0 ESR 59 H Sodium 139 144 Potassium 3.2 L 3.0 L Chloride 98 106 Carbon Dioxide 32 H 30 H Anion Gap 12 11 L BUN 8 L 7 L Creatinine 0.68 0.71 0.70 Estim Creat Clear Calc 74.7 76.6 Estimated GFR > 60 Random Glucose 131 H Lactic Acid 1.1 Calcium 9.1 Magnesium 1.9 Total Bilirubin 0.5 AST 16 ALT 10 Alkaline Phosphatase 98 C-Reactive Protein 19.72 H Total Protein 7.1 Albumin 3.0 L Vancomycin Trough Random Vancomycin Hep Bs Antigen Hep Bs Antibody Hep B Core Total Ab Hep B Core IgM Ab Hepatitis C Ab (EIA) HIV 1&2 Ab/P24 Ag 4thGn 08/08/23 08/08/23 08/09/23 05:03 05:03 05:40 WBC RBC Hgb Hct MCV MCH MCHC RDW Plt Count MPV Immature Gran % (Auto) Neut % (Auto) Lymph % (Auto) [place] % (Auto) Eos % (Auto) Baso % (Auto) Lymph # (Auto) [place] # (Auto) Eos # (Auto) Baso # (Auto) Abs Immat Gran (auto) Absolute Neuts (auto) Absolute Nucleated RBC Nucleated RBC % (auto) ESR Sodium 143 Potassium 3.4 Chloride 109 H Carbon Dioxide 26 Anion Gap 11 L BUN 5 L Creatinine 0.66 Estim Creat Clear Calc 77.7 82.4 Estimated GFR > 60 > 60 > 60 Random Glucose 78 86 Lactic Acid Calcium 8.5 D 8.8 Magnesium 1.8 Total Bilirubin 0.4 AST 12 ALT 7 Alkaline Phosphatase 80 C-Reactive Protein Total Protein 6.0 L Albumin 2.6 L Vancomycin Trough Random Vancomycin 15.1 Hep Bs Antigen Negative Hep Bs Antibody REACTIVE Hep B Core Total Ab Reactive Hep B Core IgM Ab Cancelled Hepatitis C Ab (EIA) Reactive H HIV 1&2 Ab/P24 Ag 4thGn Nonreactive 08/10/23 08/11/23 08/12/23 17:10 06:08 06:40 WBC RBC Hgb Hct MCV MCH MCHC RDW Plt Count MPV Immature Gran % (Auto) Neut % (Auto) Lymph % (Auto) [place] % (Auto) Eos % (Auto) Baso % (Auto) Lymph # (Auto) [place] # (Auto) Eos # (Auto) Baso # (Auto) Abs Immat Gran (auto) Absolute Neuts (auto) Absolute Nucleated RBC Nucleated RBC % (auto) ESR Sodium Potassium Chloride Carbon Dioxide Anion Gap BUN Creatinine 0.79 0.71 Estim Creat Clear Calc 68.9 76.6 Estimated GFR > 60 > 60 Random Glucose Lactic Acid Calcium Magnesium Total Bilirubin AST ALT Alkaline Phosphatase C-Reactive Protein Total Protein Albumin Vancomycin Trough 14.1 Random Vancomycin 12.5 L Hep Bs Antigen Hep Bs Antibody Hep B Core Total Ab Hep B Core IgM Ab Hepatitis C Ab (EIA) HIV 1&2 Ab/P24 Ag 4thGn Airway Mallampati Class: I TM Dist: >3cm Neck ROM: Full Denture: Upper and Lower Heart: ok Lungs: ok Assessment and Plan Assessment Anesthesia Assessment: Anesthesia Plan Discussed and Chart Reviewed Final Anesthetic Review Family History of Problems with Anesthesia: No History of Problems with Anesthesia: No NPO: Yes ASA Class: IV Final Preanesthetic Review: No Changes in Pt Med Stat, Meds/Allgs Chart Reviewed, Consent Obtained/Reviewed and Anes Risks/Benef Reviewed Patient Risk: High Procedure Risk: Intermediate Anesthetic Plan Anesthetic Plan: GA and Agree w/ Assess. and Plan Disposition: Standard PACU
--- NOTE | 2023-08-12 10:52 | P.OP_ITS ---
Operative Note Operative Note Date of Service: 08/12/23 Narrative: Preop diagnosis: Large right buttock ulcer, lower extremity weakness Postop diagnosis: The same, extending to muscle and ischial tuberosity Procedure: 1. Sharp excisional debridement, right buttock ulcer 2. Hand assisted laparoscopic creation of diverting end- sigmoid colostomy with extensive lysis of adhesions Surgeon: Stephen Bishop MD fitter's assistant: VENTURA Saleem The patient is a 47 year female with a large right buttock ulcer secondary to being bed-bound due to severe lower extremity weakness question of paraplegia. She also had fecal incontinence. In view of the above reasons, I explained to her that it may be best to proceed with a diverting colostomy to avoid fecal soilage of the right buttock ulcer and allow better healing. She understood the planned procedure as well as the risks, benefits, and alternatives She was brought to the operating room. She was placed initially in supine position under general anesthesia via endotracheal tube. A surgical time-out was done. The patient received Cefotan 2 g IV preoperatively I then proceeded to turn the patient to a left lateral decubitus position to expose the right buttock ulcer. This area was prepped and draped. The right buttock ulcer was all the way to the ischial tuberosity. There was note of patchy thick fibrinous tissue on multiple areas of the deep ulcer which was all the way to the ischial tuberosity and muscle. We had to do a lot of sharp dissection of this ulcer using the Mohr scissors as well as with electrocautery to remove as much of this fibrinous, nonviable coating all the way to the ischial tuberosity. We had to shave off this nonviable tissue from the ischial tuberosity. Because of the role areas a result of these debridement, we had to do a lot of electrocautery to achieve hemostasis. The ulcer measured about 11 cm x 9 cm, and was deep all the way to the ischial tuberosity. Once hemostasis was confirmed, I proceeded to then pack the area with moist Kerlix as a wet to dry dressing. Dry dressings were placed on top of this We then proceeded to do the creation of the colostomy. We turned the patient in supine position. The abdomen was prepped and draped in the usual sterile fashion I made a short incision on the midline below the umbilicus using blade 15. This was carried down through the full-thickness of the skin and subcutaneous fat until the peritoneum was entered. We immediately noticed large amounts of adhesions on the lower part of the incision. This was the 3 in omentum as well as the sigmoid to this area. This was from her previous incision likely from a We had to do a lot of careful dissection of this adhered omentum adhesions to release the omentum. However, we still notice large amounts of adhesions towards the deeper pelvis ring the sigmoid. For proceeded to apply the Mihir wound retractor and the GelPort. We insufflated through a port into the GelPort and inserted a/12 the port epigastric area through a small stab incision. We moved the camera from the GelPort to this epigastric port. We used a 10 mm 30 degree laparoscope. With laparoscopic visualization I applied a 5 will port in the right lower quadrant through a small stab incision. With laparoscopic visualization, we noticed the large amounts of adhesions again in the deep pelvis rating the moist. I applied a LigaSure through the right lower quadrant port and applied countertraction on the sigmoid away from the adhesions. This allowed us to visualize the adhesions clearly and we used the LigaSure to divide the adhesions. The patient was also in a head-down position at this point With careful extensive dissection using the LigaSure we able to eventually separate the entire sigmoid from the pelvis and I proceeded to then carefully released some of the adhesions from the left side. I also divided the peritoneum the left side to allow more mobilization also with the LigaSure. By testing the sigmoid we noticed that we had enough length I released the GelPort and pulled up the sigmoid through this incision. Again, I tested for length and it appeared that we had adequate length to allow creation of the colostomy to the left lower quadrant which we previously marked. I chose my planned line of transection the mid sigmoid. I created visit dark window divided the sigmoid using a KINGS 60 mm stapler I then proceeded to divide more of the attached mesentery, avoiding any pedicle to allow better cessation of the proximal sigmoid I then proceeded to excise that this could piece of skin from the lower quadrant which was area marked. This was done using blade 10. I sharply dissected to the skin and subcutaneous fat until IR to visualize the anterior sheath. I incised the anterior sheath using electrocautery and did muscle-splitting the rectus. I divided through the posterior she create our stoma opening. We pulled up the proximal sigmoid stump through the stoma opening. It appeared that we did not have any tension and we had more than enough length I then proceeded to examine the peritoneum for any bleeding or any bowel injury. We examined surrounding bowel loops and there was no evidence of any bowel injury so we closed the fascia with a running Maxon 1 stitch. We closed all skin incisions with skin zackery. We then proceeded to mature the colostomy. I excised the excess length of the proximal sigmoid using electrocautery. I then proceeded to apply full-thickness Polysorb 3-0 sutures through the wall of the stoma to the subdermal layer circumferentially. I then tested the lumen at the end and was able to pass my index finger through the stoma past the fascial level confirming patency of the colostomy limb. All incisions were then infiltrated with Marcaine 0.5% for postop KINGS. The colostomy appliance as well as dressings were then placed. The patient tolerated procedure well. There were no immediate complications Initial and final counts of sponges and instruments were correct. Estimated blood loss was about 25 cc . The patient was extubated without difficulty and transferred to the recovery room with stable vital signs.
[2023-08-12] MEDS: fentaNYL citrate/PF 100 MCG/2 ML VIAL 50 MCG IVPUSH ×2 (11:45→11:50)
[2023-08-12] MEDS: Nicotine 21 MG PATCH.TD24 TRANSDERMA (13:02)
[2023-08-12] MEDS: Acetaminophen 1,000 MG/100 ML PIGGYBACK 400 MG IV ×2 (13:02→20:25)
[2023-08-12] MEDS: methADONE HCl 20 MG/2 ML ORAL.CONC 80 MG PO (13:02)
[2023-08-12] MEDS: 0.9 % Sodium Chloride Flush 3 ML SYRINGE IVFLUSH ×2 (13:04→18:25)
[2023-08-12 13:31] LABS: Creatinine Clr Calc Pharmacy 78.8; Estimated Glomerular Filt Rate > 60
--- NOTE | 2023-08-12 15:04 | PM.EVENT ---
Event Note Date of Service: 08/13/23 Event Note: Seen postop earlier Underwent debridement of right buttock ulcer and end sigmoid colostomy for diversion Appears to have adequate pain Stoma viable looking Stable vital signs Pain management Clear liquids, advance diet as tolerated when stoma starts to function Time Spent With Patient Time: Total time managing care of this patient today ____ minutes.
[2023-08-12] MEDS: oxyCODONE HCl Immed Release 5 MG TABLET 10 MG PO (15:39)
[2023-08-12] MEDS: vancomycin HCL 750 MG in 0.9 % Sodium Chloride 250 ML 265 MG IV (21:05)
[2023-08-12] MEDS: Nystatin Powder 15 GM BOTTLE 1 APPL TOPICAL (21:12)
[2023-08-13] MEDS: 0.9 % Sodium Chloride Flush 3 ML SYRINGE IVFLUSH ×3 (01:01→16:25)
[2023-08-13] MEDS: Acetaminophen 1,000 MG/100 ML PIGGYBACK 400 MG IV ×4 (01:01→18:51)
[2023-08-13] MEDS: Morphine Sulfate 4 MG/ML CARTRIDGE IVPUSH ×2 (02:17→05:59)
[2023-08-13] MEDS: oxyCODONE HCl Immed Release 5 MG TABLET 10 MG PO (04:46)
--- NOTE | 2023-08-13 06:45 | PC.NURSE ---
PATIENT DECLINED REPOSITIONING NUMEROUS TIMES THIS AM. PATIENT WAS ENCOURAGED AND ASKED MULTIPLE TIMES BY THIS [employer] SUPPORT SPECIALIST AND ASSIGNED PIPELAYING FITTER TO ALLOW US TO GENTLY TURN HER OFF HER BUTTOCKS WOUND AND STRAIGHTEN OUT HER PADS, BED SHEETS , AND HER DENISE. DESPITE ALL EDUCATION FOR COMFORT, SKIN CARE, IMPORTANCE OF TURNING, SHE CONTINUED TO DECLINE AND GET WEEPY. NOTED MEDICATED PRIOR WITH BOTH MORPHINE AND IV APAP STILL NO CONVINCING PATIENT.
--- NOTE | 2023-08-13 07:40 | PM.PNGS ---
Subjective Subjective Date of Service: 08/13/23 <Agnes Saleem PA-C - Last Filed: 08/13/23 07:44> 08/13/23 <Stephen Bishop MD - Last Filed: 08/13/23 08:51> Interval history: Was unable to move due to pain. Was initially relieved with morphine but now not helping. <Agnes Saleem PA-C - Last Filed: 08/13/23 07:44> Physical Exam Vital Signs: Vital Signs: Last Vital Signs Temp 97.5 F 08/12/23 23:39 Pulse 65 08/12/23 23:39 Resp 18 08/12/23 23:39 BP 120/70 08/12/23 23:39 Pulse Ox 98 08/12/23 23:39 O2 Del Method Nasal Cannula 08/12/23 23:39 O2 Flow Rate 2 08/12/23 23:39 BMI result Body Mass Index 21.9 <Agnes Saleem PA-C - Last Filed: 08/13/23 07:44> Const: General: comfortable, no acute distress and alert <Agnes Saleem PA-C - Last Filed: 08/13/23 07:44> Orientation/consciousness: patient oriented x3 <Agnes Saleem PA-C - Last Filed: 08/13/23 07:44> Resp: Effort & Inspection: normal respiratory effort <Agnes Saleem PA-C - Last Filed: 08/13/23 07:44> GI: Other: ostomy pink, no output <Agnes Saleem PA-C - Last Filed: 08/13/23 07:44> Inspection: No distended and Yes incision (dressing c/d/i) <Agnes Saleem PA-C - Last Filed: 08/13/23 07:44> Palpation (GI): Soft to palpation, Tenderness to palpation present (GI) (mild incisional), no guarding and not rigid <SOLOMON Crum Last Filed: 08/13/23 07:44> Skin: Other: warm and dry; unable to examine decubitus ulcer at this time <SOLOMON Crum Last Filed: 08/13/23 07:44> Neuro: General: patient oriented x3 <Agnes Saleem PA-C - Last Filed: 08/13/23 07:44> Objective Data Active Medications Acetaminophen (Acetaminophen 325 Mg Tablet) 650 mg PO Q6H PRN PRN Reason: Pain, Mild (Pain Scale 1-3) Last Admin: 08/10/23 20:11 Dose: 650 mg Documented By: AME Docusate Sodium (Docusate Sodium 100 Mg Capsule) 100 mg PO BID [facility] Last Admin: 08/12/23 21:00 Dose: Not Given Documented By: SAMIRA Non-Admin Reason: Patient Refused Enoxaparin Sodium (Enoxaparin Sodium 40 Mg/0.4 Ml Syringe) 40 mg SUBCUT Q24H [facility] Last Admin: 08/12/23 18:24 Dose: Not Given Documented By: SAMIRA Non-Admin Reason: Patient Refused Ferrous Sulfate (Ferrous Sulfate 324 Mg Tablet.Dr) 324 mg PO DAILY [facility] Last Admin: 08/12/23 13:11 Dose: Not Given Documented By: CRISTINA Non-Admin Reason: Patient Refused Hydromorphone HCl (Hydromorphone Hcl 0.5 Mg/0.5 Ml Syringe) 0.5 mg IVPUSH Q2H PRN; Protocol PRN Reason: Pain, Severe (Pain Scale 7-10) Vancomycin HCl 750 mg/ Sodium (Chloride) 265 mls @ 265 mls/hr IV Q12H [facility] Last Infusion: 08/12/23 22:31 Dose: Infused Documented By: SAMIRA Acetaminophen (Ofirmev) 1,000 mg in 100 mls @ 400 mls/hr IV Q6H [facility] Last Infusion: 08/13/23 06:44 Dose: Infused Documented By: CATIA Ketorolac Tromethamine (Ketorolac Tromethamine 30 Mg/Ml Vial) 30 mg IVPUSH Q6H PRN PRN Reason: Breakthrough Pain Lorazepam (Lorazepam 0.5 Mg Tablet) 0.5 mg PO Q12H PRN PRN Reason: anxiety Last Admin: 08/11/23 19:26 Dose: 0.5 mg Documented By: SAMIRA Methadone HCl (Methadone Hcl 20 Mg/2 Ml Oral.Conc) 80 mg PO DAILY [facility] Last Admin: 08/12/23 13:02 Dose: 80 mg Documented By: CRISTINA Multivitamins/Vitamin C (Multivitamin Tablet) 1 tab PO DAILY [facility] Last Admin: 08/12/23 13:11 Dose: Not Given Documented By: CRISTINA Non-Admin Reason: Patient Refused Nicotine (Nicotine 21 Mg Patch.Td24) 21 mg TRANSDERMA DAILY [facility] Last Admin: 08/12/23 13:02 Dose: 21 mg Documented By: CRISTINA Nystatin (Nystatin Powder 15 Gm Bottle) 1 appl TOPICAL TID [facility]; Protocol Last Admin: 08/12/23 21:12 Dose: 1 appl Documented By: SAMIRA Ondansetron HCl (Ondansetron Hcl 4 Mg/2 Ml Vial) 4 mg IVPUSH Q8H PRN PRN Reason: Nausea and Vomiting Oxycodone HCl (Oxycodone Hcl Immed Release 5 Mg Tablet) 5 mg PO Q4H PRN PRN Reason: Pain, Moderate(Pain Scale 4-6) Oxycodone HCl (Oxycodone Hcl Immed Release 5 Mg Tablet) 10 mg PO Q4H PRN PRN Reason: Pain, Severe (Pain Scale 7-10) Last Admin: 08/13/23 04:46 Dose: 10 mg Documented By: CATIA Pharmacy Consult (Consult Rx Vancomycin Dosing) 1 each MISCELLANE DAILY PRN PRN Reason: Consult order Pharmacy Consult (Consult Rx Vancomycin Dosing) 1 each MISCELLANE DAILY PRN PRN Reason: Consult order Senna (Sennosides 8.6 Mg Tablet) 17.2 mg PO BEDTIME PRN PRN Reason: Constipation Sodium Chloride (0.9 % Sodium Chloride Flush 3 Ml Syringe) 3 ml IVFLUSH QSHIFT [facility] Last Admin: 08/13/23 01:01 Dose: 3 ml Documented By: CATIA <Agnes Saleem PA-C - Last Filed: 08/13/23 07:44> Labs CBC & Chem 7: 08/08/23 05:03 08/12/23 06:40 <Agnes Saleem PA-C - Last Filed: 08/13/23 07:44> Labs: Laboratory Results - last 24 hr 08/12/23 06:40 Estim Creat Clear Calc 78.8 Estimated GFR > 60 <Agnes Saleem PA-C - Last Filed: 08/13/23 07:44> Microbiology Microbiology Results: Microbiology 08/07/23 15:47 Blood Culture - Final Blood - Venous No growth after 5 days. 08/07/23 15:47 Blood Culture - Final Blood - Venous No growth after 5 days. <Agnes Saleem PA-C - Last Filed: 08/13/23 07:44> Procedures Date of Service Date of Service: 08/13/23 <Agnes Saleem PA-C - Last Filed: 08/13/23 07:44> 08/13/23 <Stephen Bishop MD - Last Filed: 08/13/23 08:51> Progress Note: A&P Assessment and plan (1) Decubitus ulcer: Status: Acute <Agnes Saleem PA-C - Last Filed: 08/13/23 07:44> (2) Osteomyelitis: Status: Acute <Agnes Saleem PA-C - Last Filed: 08/13/23 07:44> (3) S/P colostomy: Status: Acute <Agnes Saleem PA-C - Last Filed: 08/13/23 07:44> Assessment and Plan: Admits to pain on the incisions Asking for narcotics Abdomen is soft Stoma viable looking, some edema, no significant output Diet as tolerated Wound care for the right buttock ulcer, and plan for wound VAC Seen and examined independently <Stephen Bishop MD - Last Filed: 08/13/23 08:51> Assessment and Plan: 47 year old female with multiple medical comorbidities, large decubitus ulcer with osteomyelitis present, now POD #1 s/p debridement of right ischial decubitus ulcer, JAVI end sigmoid colostomy. Having difficulty with pain control, on methadone. Analgesics adjusted, on toradol and ofirmev as well. Will return to change ulcer dressing once medicated. Diet as tolerated. Encouraged IS use. <Agnes Saleem PA-C - Last Filed: 08/13/23 07:44> Time Spent With Patient Time: Total time managing care of this patient today ____ minutes. <Agnes Saleem PA-C - Last Filed: 08/13/23 07:44> Quality Stroke Does the patient have a stroke diagnosis?: No <Agnes Saleem PA-C - Last Filed: 08/13/23 07:44> VTE Prior VTE?: No <Agnes Saleem PA-C - Last Filed: 08/13/23 07:44> VTE Risk Level:: Medical - moderate - high <Agnes Saleem PA-C - Last Filed: 08/13/23 07:44> VTE Device Contraindication: N/A - Device Ordered <Agnes Saleem PA-C - Last Filed: 08/13/23 07:44> VTE Drug Contraindication: N/A - Med Ordered <SOLOMON Crum Last Filed: 08/13/23 07:44>
[2023-08-13 07:44] VITALS: BP 106/71; PULSE 58; RESP 18; TEMP 36.6; O2SAT 95
[2023-08-13] MEDS: Nicotine 21 MG PATCH.TD24 TRANSDERMA (07:50)
[2023-08-13] MEDS: vancomycin HCL 750 MG in 0.9 % Sodium Chloride 250 ML 265 MG IV ×2 (07:52→19:22)
[2023-08-13] MEDS: Ketorolac Tromethamine 30 MG/ML VIAL IVPUSH ×2 (07:52→19:17)
[2023-08-13] MEDS: HYDROmorphone HCl 0.5 MG/0.5 ML SYRINGE IVPUSH ×5 (07:53→21:05)
[2023-08-13] MEDS: Nystatin Powder 15 GM BOTTLE 1 APPL TOPICAL ×2 (07:54→19:21)
--- NOTE | 2023-08-13 08:16 | HE.PHANOTE ---
ERAN TONEY CONTINUE CURRENT DOSE, NEXT LEVEL DUE 08/14 @0500 WANDY
[2023-08-13] MEDS: methADONE HCl 20 MG/2 ML ORAL.CONC 80 MG PO (09:06)
--- NOTE | 2023-08-13 09:21 | PC.NURSE ---
I WAS PRESENT WHEN DR. PETERS WAS DISCUSSING HER CARE. PT IS REFUSING REHAB, STATES SHE WILL LIVE WITH HER MOTHER. DR PETERS IMPRESS TO HER THAT WITHOUT PROPER CARE SHE COULD . PT STATES IF I I
--- NOTE | 2023-08-13 11:14 | PC.NURSE ---
Late entry for 08/12/23 at 1500. The patient cam to room S272 for a PICC line placement. She stated, I don t want this done today. I just had surgery today and I am in pain and tirede. Not today, maybe tomorrow. Jose L text to Tatiana Martino to get report before calling patient down this morning. Tatiana texted back, I have to check with Dr Dan Pt is refusing rehab. Noé Hummel informed.
--- NOTE | 2023-08-13 11:41 | MHC.CLN ---
F/U DIET=REGULAR. ENSURE MAX TID TO IMPROVE NUTRITIONAL INTAKE AND PROMOTE WOUND HEALING. SUPPLEMENT PROVIDES 450 KCALS, 90 G PROTEIN. STAGE IV WOUND TO RIGHT BUTTOCK. DIVERTING COLOSTYOMY AND WOUND DEBRIDEMENT 08/12. INTAKE MOST MEALS 0-50%. FOLLOW FOR INTAKE AND WOUND HEALING.
--- NOTE | 2023-08-13 12:39 | MHC.CM.PN ---
PER CONVERSATION WITH SURGEON, PATIENT HAS AGREED TO PICC PLACEMENT. PATIENT IS NOT MEDICALLY CLEARED FOR DC SECONDARY TO MALFUNCTIONING COLOSTOMY AND NEED FOR WOUND VAC, WHICH IS SCHEDULED TO BE PLACED Friday08/15/23. [facility]
--- NOTE | 2023-08-13 13:55 | PC.NURSE ---
08/13/23 1300 Patient to S272 for her PICC qian insertion. The patient stated, I know what this is I have had one before. I don't know why they ordered this because I am going home on Friday. The patient is an IV drug user. I asked is they were discharging her home and she said, No i am just leaving. I called Noé Hummel and she came to talk to the patient, and The patient stated the same information and stated, Just send me back upstairs, I don.t want this. Dr. Dan informed and Dr. Salcedo informed by Noé Guerrero the operations executivebusiness analyst manager. The patient went upstairs with the transporter. Stuart Thacker RN informed.
[2023-08-13 14:23] LABS: Hemoglobin 9.8 g/dl (12.0-16.0); Mean Corpuscular HGB Conc 28.8 g/dl (31.0-35.0); Mean Corpuscular Hemoglobin 23.7 pg (27.0-33.0); Mean Corpuscular Volume 82.3 fL (80.0-98.0); Mean Platelet Volume 10.1 fL (9.4-12.3); Platelet Count 246 X10*3/uL (160-400); Red Blood Count 4.13 X10*6/uL (4.20-5.50); Red Cell Distribution Width 17.2 % (11.0-16.0)
[2023-08-13 14:40] LABS: Anion Gap 11 (12-20); Blood Urea Nitrogen 8 mg/dL (9-16); Calcium 8.4 mg/dL (8.4-10.2); Carbon Dioxide 26 mmol/L (22-29); Chloride 108 mmol/L (96-108); Creatinine Clr Calc Pharmacy 77.7; Estimated Glomerular Filt Rate > 60; Glucose Random 97 mg/dL (60-115); Potassium 3.9 mmol/L (3.3-5.1); Sodium 141 mmol/L (135-145)
--- NOTE | 2023-08-13 14:57 | HO.POSTANES ---
Post Anesthesia Evaluation Post Anesthesia Evaluation Date of Service: 08/13/23 Vital Signs: Vital Signs Temp Pulse Resp BP Pulse Ox O2 Del Method 08/13/23 07:44 97.9 F 58 18 106/71 95 Room Air Anesthesia: General Endotracheal-GETA Mental Status: Awake Pain Control: Satisfactory Nausea/Vomiting: None Hydration: Adequate Anesthesia-Related Issues: No Anes. Related Issues
--- NOTE | 2023-08-13 15:31 | PC.NURSE ---
Pt agreed to go down for PICC was transported by stretcher. Return to room in a short period of time. Refused PICC stated she is going home on Friday. Pt is unrealistic and will not be able to care for her self. Her current iv is out of date. but still functioning. Pt aware the if current Iv fails she will not be able to get iv antibiotics or pain meds.
[2023-08-13 15:51] VITALS: BP 118/75; PULSE 54; RESP 18; TEMP 36.3; O2SAT 97
--- NOTE | 2023-08-13 17:27 | PM.PSYCN ---
History of Present Illness Date of Service: 08/13/2023 Chief Complaint: infected decubitus ulcer Requesting physician: Lluvia Dan Discussed with referring provider: Yes Sources of Information: patient interviewed, chart reviewed and crisis/core team assessment reviewed HPI Narrative: Mrs. Ch is a 47 year-old woman who presented to [facility] with infected sacral decutus ulcer. Pt was recently discharged after tx of such wound but due to not able to properly care for wound pt return to the hospital in much worse condition. Utox not obtain during this admission. Pt last admission on 07/27 pt positive for fentanyl and opioids. Concern in terms of pt's capacity to make medical decisions, as pt declining intervention to prevent further severe complication of not properly caring for wound that include sepsis and . Pt seen in her room. She reports she had stayed at her daughter's house when she was discharged from the hospital but had argument with her and left her house. she has been staying between acquaintances and on the streets. She is able to describe complications if condition of wound worsens- including systemic signs of infection. She does understand that at this point the recommendation is that she steps down to short term nursing care. She denies SI/HI. No signs of psychosis or delusions. She reports she at this time that she would be in agreement to go to nursing facility short term but worries about her overall housing issues. She denied recent opioid or substance use, but again, no utox was completed during this admission. [facility] Medical History History of osteomyelitis Cocaine use disorder Opioid use disorder Anemia Polysubstance (including opioids) dependence, daily use Drug abuse in remission Asthma Surgical History History of spinal fusion Diagnostics Vital Signs (24Hr): Vital Signs - 24 hr 08/12/23 17:54 08/12/23 23:39 08/13/23 07:44 Temperature 97.5 F 97.9 F Pulse Rate 60 65 58 Respiratory Rate 18 18 Blood Pressure 119/78 120/70 106/71 Pulse Oximetry 97 98 95 Oxygen Delivery Method Nasal Cannula Nasal Cannula Room Air Oxygen Flow Rate 2 2 08/13/23 15:51 Temperature 97.3 F Pulse Rate 54 Respiratory Rate 18 Blood Pressure 118/75 Pulse Oximetry 97 Oxygen Delivery Method Room Air Oxygen Flow Rate BMI result Body Mass Index 21.9 Labs 08/13/23 13:58 08/15/23 06:14 Labs: Laboratory Results - last 48 hr 08/12/23 08/13/23 06:40 13:58 WBC 8.0 RBC 4.13 L Hgb 9.8 L Hct 34.0 L MCV 82.3 MCH 23.7 L MCHC 28.8 L RDW 17.2 H Plt Count 246 D MPV 10.1 Absolute Nucleated RBC 0.000 Nucleated RBC % (auto) 0.0 Sodium 141 Potassium 3.9 Chloride 108 Carbon Dioxide 26 Anion Gap 11 L BUN 8 L Creatinine 0.69 0.70 Estim Creat Clear Calc 78.8 77.7 Estimated GFR > 60 > 60 Random Glucose 97 Calcium 8.4 Random Vancomycin 12.5 L Imaging Radiology Impressions: ITS Impressions Pelvis CT 08/07/23 18:15 IMPRESSION: Right posterior buttock ulcer/open wound with abnormal air extending to the bone/right posterior issue tuberosity. Focal osteopenia, cortical thinning and bone loss to the right posterior ischial tuberosity suggestive of osteomyelitis. Constipation. Question wall thickening of the distal colon and rectum/proctocolitis. Findings will be communicated by the [place] work flow civilian jail officer Mental Status Exam Mental Status Exam Narrative: Appearance: wearing hospital gown, fair hygiene, in NAD Behavior: cooperative Speech: clear, normal rate/rhythm/volume, spontaneous TP: linear TC: no s/s of psychosis or delusions Mood: better Affect: congruent SI: none HI: none AH/VH: none Insight/judgment: poor x 2. Memory/cog: alert, oriented x 3. grossly intact to conversational testing. Medications Medications Current Medications Acetaminophen (Acetaminophen 325 Mg Tablet) 650 mg PO Q6H PRN PRN Reason: Pain, Mild (Pain Scale 1-3) Last Admin: 08/10/23 20:11 Dose: 650 mg Docusate Sodium (Docusate Sodium 100 Mg Capsule) 100 mg PO BID [facility] Last Admin: 08/13/23 07:53 Dose: Not Given Enoxaparin Sodium (Enoxaparin Sodium 40 Mg/0.4 Ml Syringe) 40 mg SUBCUT Q24H [facility] Last Admin: 08/12/23 18:24 Dose: Not Given Ferrous Sulfate (Ferrous Sulfate 324 Mg Tablet.) 324 mg PO DAILY [facility] Last Admin: 08/13/23 07:54 Dose: Not Given Hydromorphone HCl (Hydromorphone Hcl 0.5 Mg/0.5 Ml Syringe) 0.5 mg IVPUSH Q2H PRN; Protocol PRN Reason: Pain, Severe (Pain Scale 7-10) Last Admin: 08/13/23 16:25 Dose: 0.5 mg Vancomycin HCl 750 mg/ Sodium (Chloride) 265 mls @ 265 mls/hr IV Q12H [facility] Last Infusion: 08/13/23 08:57 Dose: Infused Acetaminophen (Ofirmev) 1,000 mg in 100 mls @ 400 mls/hr IV Q6H [facility] Last Infusion: 08/13/23 12:49 Dose: Infused Ketorolac Tromethamine (Ketorolac Tromethamine 30 Mg/Ml Vial) 30 mg IVPUSH Q6H PRN PRN Reason: Breakthrough Pain Last Admin: 08/13/23 07:52 Dose: 30 mg Lorazepam (Lorazepam 0.5 Mg Tablet) 0.5 mg PO Q12H PRN PRN Reason: anxiety Last Admin: 08/11/23 19:26 Dose: 0.5 mg Methadone HCl (Methadone Hcl 20 Mg/2 Ml Oral.Conc) 80 mg PO DAILY [facility] Last Admin: 08/13/23 09:06 Dose: 80 mg Multivitamins/Vitamin C (Multivitamin Tablet) 1 tab PO DAILY [facility] Last Admin: 08/13/23 07:54 Dose: Not Given Nicotine (Nicotine 21 Mg Patch.Td24) 21 mg TRANSDERMA DAILY [facility] Last Admin: 08/13/23 07:50 Dose: 21 mg Nystatin (Nystatin Powder 15 Gm Bottle) 1 appl TOPICAL TID [facility]; Protocol Last Admin: 08/13/23 15:29 Dose: Not Given Ondansetron HCl (Ondansetron Hcl 4 Mg/2 Ml Vial) 4 mg IVPUSH Q8H PRN PRN Reason: Nausea and Vomiting Oxycodone HCl (Oxycodone Hcl Immed Release 5 Mg Tablet) 5 mg PO Q4H PRN PRN Reason: Pain, Moderate(Pain Scale 4-6) Oxycodone HCl (Oxycodone Hcl Immed Release 5 Mg Tablet) 10 mg PO Q4H PRN PRN Reason: Pain, Severe (Pain Scale 7-10) Last Admin: 08/13/23 04:46 Dose: 10 mg Pharmacy Consult (Consult Rx Vancomycin Dosing) 1 each MISCELLANE DAILY PRN PRN Reason: Consult order Pharmacy Consult (Consult Rx Vancomycin Dosing) 1 each MISCELLANE DAILY PRN PRN Reason: Consult order Senna (Sennosides 8.6 Mg Tablet) 17.2 mg PO BEDTIME PRN PRN Reason: Constipation Sodium Chloride (0.9 % Sodium Chloride Flush 3 Ml Syringe) 3 ml IVFLUSH QSHIFT [facility] Last Admin: 08/13/23 16:25 Dose: 3 ml Allergies Allergies Allergy/AdvReac Type Severity Reaction Status Date / Time codeine [Codeine] Allergy Intermediate ITCHING, Verified 06/22/23 22:02 VOMTING, THROAT SWELLS tramadol [TRAMADOL] Allergy Intermediate BODY Verified 06/22/23 22:02 SWELLING Assessment & Plan Assessment & Plan (1) Mood disorder: Status: Acute Code(s): F39 - Unspecified mood [affective] disorder Plan Ms. Ch is a 47 year-old woman with hx of opioid use disorder recently discharge with sacral, decubitus ulcer who returns with worsening of ulcer. Utox not completed on admission. Pt lacks stable housing and other psychosocial barries affecting her ability to properly care for wound. Pt shows understanding of medical conditions, able to show appreciation in terms of risks versus benefit of accepting or rejecting interventions recommended. Pt shows understanding as to consequences of wound progressing and worsening if care is not adequate on discharge. PLAN 1. Pt does show capacity to make medical decisions. She does have low frustration tolerance, may not be fully forthcoming in terms of extend of substance use and utox was not completed during this admission but last one on 07/27 was positive for opioids and fentanyl Please narcan on discharge. Total time managing care of this patient today ____ minutes.
--- NOTE | 2023-08-13 17:44 | P.PNIM_ITS ---
Subjective Subjective Date of Service: 08/13/23 Interval History: Complaining of pain, refusing rehab wishes to be discharged home, patient is homeless, refusing PICC line, tolerating diet no nausea, no vomiting, no abdominal pain, Braun catheter with clear urine ostomy with no output, no acute issues overnight. Review of Systems All other system reviewed and negative Physical Exam 2 Vital Signs: Vital Signs: Last Vital Signs Temp 97.3 F 08/13/23 15:51 Pulse 54 08/13/23 15:51 Resp 18 08/13/23 15:51 BP 118/75 08/13/23 15:51 Pulse Ox 97 08/13/23 15:51 O2 Del Method Room Air 08/13/23 15:51 O2 Flow Rate 2 08/12/23 23:39 BMI result Body Mass Index 21.9 Const: Other: Gen: Awake alert resting in bed in no acute distress HEENT: sclera anicteric, moist mucus membranes Neck: supple Lungs: clear to auscultation bilaterally Heart: regular rate and rhythm, no murmurs Abd: soft, ostomy in place no output, non-distended Ext: no edema, contraction deformity both knees Skin: large right ischial decubitus ulcer ,no drainage, dressing in place Neuro: alert and oriented x3, paraplegia Psych: appropriate affect Objective Data Active Medications Acetaminophen (Acetaminophen 325 Mg Tablet) 650 mg PO Q6H PRN PRN Reason: Pain, Mild (Pain Scale 1-3) Last Admin: 08/10/23 20:11 Dose: 650 mg Documented By: AME Docusate Sodium (Docusate Sodium 100 Mg Capsule) 100 mg PO BID [facility] Last Admin: 08/13/23 07:53 Dose: Not Given Documented By: CRISTINA Non-Admin Reason: Patient Refused Enoxaparin Sodium (Enoxaparin Sodium 40 Mg/0.4 Ml Syringe) 40 mg SUBCUT Q24H [facility] Last Admin: 08/12/23 18:24 Dose: Not Given Documented By: SAMIRA Non-Admin Reason: Patient Refused Ferrous Sulfate (Ferrous Sulfate 324 Mg Tablet.) 324 mg PO DAILY [facility] Last Admin: 08/13/23 07:54 Dose: Not Given Documented By: CRISTINA Non-Admin Reason: Patient Refused Hydromorphone HCl (Hydromorphone Hcl 0.5 Mg/0.5 Ml Syringe) 0.5 mg IVPUSH Q2H PRN; Protocol PRN Reason: Pain, Severe (Pain Scale 7-10) Last Admin: 08/13/23 16:25 Dose: 0.5 mg Documented By: SAMIRA Vancomycin HCl 750 mg/ Sodium (Chloride) 265 mls @ 265 mls/hr IV Q12H [facility] Last Infusion: 08/13/23 08:57 Dose: Infused Documented By: CRISTINA Acetaminophen (Ofirmev) 1,000 mg in 100 mls @ 400 mls/hr IV Q6H [facility] Last Infusion: 08/13/23 12:49 Dose: Infused Documented By: CRISTINA Ketorolac Tromethamine (Ketorolac Tromethamine 30 Mg/Ml Vial) 30 mg IVPUSH Q6H PRN PRN Reason: Breakthrough Pain Last Admin: 08/13/23 07:52 Dose: 30 mg Documented By: CRISTINA Lorazepam (Lorazepam 0.5 Mg Tablet) 0.5 mg PO Q12H PRN PRN Reason: anxiety Last Admin: 08/11/23 19:26 Dose: 0.5 mg Documented By: SAMIRA Methadone HCl (Methadone Hcl 20 Mg/2 Ml Oral.Conc) 80 mg PO DAILY [facility] Last Admin: 08/13/23 09:06 Dose: 80 mg Documented By: CRISTINA Multivitamins/Vitamin C (Multivitamin Tablet) 1 tab PO DAILY [facility] Last Admin: 08/13/23 07:54 Dose: Not Given Documented By: CRISTINA Non-Admin Reason: Patient Refused Nicotine (Nicotine 21 Mg Patch.Td24) 21 mg TRANSDERMA DAILY [facility] Last Admin: 08/13/23 07:50 Dose: 21 mg Documented By: CRISTINA Nystatin (Nystatin Powder 15 Gm Bottle) 1 appl TOPICAL TID [facility]; Protocol Last Admin: 08/13/23 15:29 Dose: Not Given Documented By: CRISTINA Non-Admin Reason: Patient Refused Ondansetron HCl (Ondansetron Hcl 4 Mg/2 Ml Vial) 4 mg IVPUSH Q8H PRN PRN Reason: Nausea and Vomiting Oxycodone HCl (Oxycodone Hcl Immed Release 5 Mg Tablet) 5 mg PO Q4H PRN PRN Reason: Pain, Moderate(Pain Scale 4-6) Oxycodone HCl (Oxycodone Hcl Immed Release 5 Mg Tablet) 10 mg PO Q4H PRN PRN Reason: Pain, Severe (Pain Scale 7-10) Last Admin: 08/13/23 04:46 Dose: 10 mg Documented By: CATIA Pharmacy Consult (Consult Rx Vancomycin Dosing) 1 each MISCELLANE DAILY PRN PRN Reason: Consult order Pharmacy Consult (Consult Rx Vancomycin Dosing) 1 each MISCELLANE DAILY PRN PRN Reason: Consult order Senna (Sennosides 8.6 Mg Tablet) 17.2 mg PO BEDTIME PRN PRN Reason: Constipation Sodium Chloride (0.9 % Sodium Chloride Flush 3 Ml Syringe) 3 ml IVFLUSH QSHIFT [facility] Last Admin: 08/13/23 16:25 Dose: 3 ml Documented By: SAMIRA Labs 08/13/23 13:58 08/13/23 13:58 Labs: Laboratory Results - last 24 hr 08/13/23 13:58 MCV 82.3 MCH 23.7 L MCHC 28.8 L RDW 17.2 H Plt Count 246 D MPV 10.1 Absolute Nucleated RBC 0.000 Nucleated RBC % (auto) 0.0 Anion Gap 11 L Estim Creat Clear Calc 77.7 Estimated GFR > 60 Random Glucose 97 Calcium 8.4 Microbiology Microbiology Results: Microbiology 08/07/23 15:47 Blood Culture - Final Blood - Venous No growth after 5 days. 08/07/23 15:47 Blood Culture - Final Blood - Venous No growth after 5 days. 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 Discharged to her mother's home but never went there and has been living on the streets and not getting wound care. Presenting with worsening pain and discharge from the wound and found to have maggot infestation and osteomyelitis infected ischial decubitus ulcer/ ischial osteomyelitis - case discussed with ID she recommend, IV vanco x 6wk then PO doxy x 2mo, weekly CRP/ESR/Cr/vanco trough, outpatient ID follow-up - BCx negative; PICC ordered patient went down twice but refused the procedure - underwent diverting colostomy 08/12 no output from ostomy, continue Braun catheter - continue dressing change as per General surgery and Wound Care , plan for wound VAC on Friday - complaining of pain, placed on Tylenol IV oxycodone, Toradol and IV Dilaudid by surgery microcytic anemia - repleting Fe hypoK - repleted, potassium normalized tobacco abuse - NRT OUD - continue methadone - HBV immune from prior infection; HCV positive , HIV negative - denies recent substance abuse but Utox 07/27/23 was positive for fentayl and cocaine; seen by Addiction medication patient denied cravings or withdrawal symptoms felt doing well on methadone homelessness - patient declining short-term rehab placement, inform patient she is not stable to be discharged home, due to large ischial decubiti as well as colostomy care on Braun catheter and need 6 weeks of IV antibiotics Patient was recently discharged home on 07/30 but was unable to manage wound and return to hospital with worsening wound and maggots, will obtain competency eval FEN - cont. nutritional supplementation to promote wound healing VTE ppx - LMWH dispo - will need STR for wound care + IV ABX In my clinical judgment, the patient requires continued inpatient hospitalization for the following reasons: IV ABX, PICC line, wound care, and surgical intervention. Time Spent With Patient Time: Total time managing care of this patient today ____ minutes. Quality Stroke Does the patient have a stroke diagnosis?: No VTE Prior VTE?: No VTE Risk Level:: Medical - moderate - high VTE Device Contraindication: N/A - Device Ordered VTE Drug Contraindication: N/A - Med Ordered
--- NOTE | 2023-08-13 18:54 | PC.NURSE ---
IV outdated ,patient refused for RN to insert a new one,pt may consider PICC line in am
[2023-08-13] MEDS: Docusate Sodium 100 MG CAPSULE PO (19:19)
[2023-08-13 21:04] VITALS: BP 107/60; PULSE 61
[2023-08-14] VITALS: BP 115/65; PULSE 50; RESP 18; TEMP 36.2; O2SAT 96
[2023-08-14] MEDS: HYDROmorphone HCl 0.5 MG/0.5 ML SYRINGE IVPUSH ×6 (00:37→22:57)
[2023-08-14] MEDS: Acetaminophen 1,000 MG/100 ML PIGGYBACK 400 MG IV ×2 (00:37→06:39)
[2023-08-14 05:46] LABS: Creatinine Clr Calc Pharmacy 75.6; Estimated Glomerular Filt Rate > 60
[2023-08-14 05:47] LABS: Vancomycin Random 13.1 mcg/mL (15-20)
--- NOTE | 2023-08-14 06:25 | HE.PHANOTE ---
RE VANCO tROUGH WAS 13.1, CORRELATED TO AUC 462. NEXT LEVEL DUE 08/15@1700 WANDY
[2023-08-14 07:52] VITALS: BP 127/81; PULSE 63; RESP 18; TEMP 36.4; O2SAT 96
[2023-08-14] MEDS: vancomycin HCL 750 MG in 0.9 % Sodium Chloride 250 ML 265 MG IV ×2 (08:55→18:29)
[2023-08-14] MEDS: methADONE HCl 20 MG/2 ML ORAL.CONC 80 MG PO (08:57)
[2023-08-14] MEDS: Multivitamin TABLET 1 TAB PO (08:57)
[2023-08-14] MEDS: Nicotine 21 MG PATCH.TD24 TRANSDERMA (08:57)
[2023-08-14] MEDS: oxyCODONE HCl Immed Release 5 MG TABLET 10 MG PO ×3 (08:57→21:22)
[2023-08-14] MEDS: Ferrous Sulfate 324 MG TABLET.DR PO (08:57)
[2023-08-14] MEDS: Docusate Sodium 100 MG CAPSULE PO (08:57)
[2023-08-14] MEDS: 0.9 % Sodium Chloride Flush 3 ML SYRINGE IVFLUSH ×3 (08:58→22:58)
[2023-08-14] MEDS: Nystatin Powder 15 GM BOTTLE 1 APPL TOPICAL ×3 (09:52→21:25)
--- NOTE | 2023-08-14 11:45 | MHC.RECOVRN ---
Attempt made to round and check in with pt, pt in bed and appears to be sleeping at this time. Pt allowed to sleep.
--- NOTE | 2023-08-14 12:54 | P.PNGS_ITS ---
Subjective Subjective Date of Service: 08/15/23 Interval history: Asking for her pain meds Tolerating regular diet Passing flatus via her stoma although no stool yet Physical Exam 2 Vital Signs: Vital Signs: Last Vital Signs Temp 97.5 F 08/14/23 07:52 Pulse 63 08/14/23 07:52 Resp 18 08/14/23 07:52 BP 127/81 08/14/23 07:52 Pulse Ox 96 08/14/23 07:52 O2 Del Method Room Air 08/14/23 07:52 O2 Flow Rate 2 08/12/23 23:39 BMI result Body Mass Index 21.9 Const: General: no acute distress Resp: Effort & Inspection: normal respiratory effort Cardio: Rate: regular rate GI: Other: Stoma viable, with air but no stools Palpation (GI): Soft to palpation, not firm and no guarding Back/Spine/Pelvis: Other: Right buttock dressings dry Objective Data Active Medications Acetaminophen (Acetaminophen 325 Mg Tablet) 650 mg PO Q6H PRN PRN Reason: Pain, Mild (Pain Scale 1-3) Last Admin: 08/10/23 20:11 Dose: 650 mg Documented By: AME Docusate Sodium (Docusate Sodium 100 Mg Capsule) 100 mg PO BID [facility] Last Admin: 08/14/23 08:57 Dose: 100 mg Documented By: ETHAN Enoxaparin Sodium (Enoxaparin Sodium 40 Mg/0.4 Ml Syringe) 40 mg SUBCUT Q24H [facility] Last Admin: 08/13/23 19:06 Dose: Not Given Documented By: SAMIRA Non-Admin Reason: Patient Refused Ferrous Sulfate (Ferrous Sulfate 324 Mg Prudencio.) 324 mg PO DAILY [facility] Last Admin: 08/14/23 08:57 Dose: 324 mg Documented By: ETHAN Hydromorphone HCl (Hydromorphone Hcl 0.5 Mg/0.5 Ml Syringe) 0.5 mg IVPUSH Q2H PRN; Protocol PRN Reason: Pain, Severe (Pain Scale 7-10) Last Admin: 08/14/23 09:51 Dose: 0.5 mg Documented By: ETHAN Vancomycin HCl 750 mg/ Sodium (Chloride) 265 mls @ 265 mls/hr IV Q12H [facility] Last Admin: 08/14/23 08:55 Dose: 265 mls/hr Documented By: ETHAN Acetaminophen (Ofirmev) 1,000 mg in 100 mls @ 400 mls/hr IV Q6H [facility] Last Infusion: 08/14/23 08:56 Dose: Infused Documented By: ETHAN Ketorolac Tromethamine (Ketorolac Tromethamine 30 Mg/Ml Vial) 30 mg IVPUSH Q6H PRN PRN Reason: Breakthrough Pain Last Admin: 08/13/23 19:17 Dose: 30 mg Documented By: SAMIRA Lorazepam (Lorazepam 0.5 Mg Tablet) 0.5 mg PO Q12H PRN PRN Reason: anxiety Last Admin: 08/11/23 19:26 Dose: 0.5 mg Documented By: SAMIRA Methadone HCl (Methadone Hcl 20 Mg/2 Ml Oral.Conc) 80 mg PO DAILY [facility] Last Admin: 08/14/23 08:57 Dose: 80 mg Documented By: ETHAN Multivitamins/Vitamin C (Multivitamin Tablet) 1 tab PO DAILY [facility] Last Admin: 08/14/23 08:57 Dose: 1 tab Documented By: ETHAN Nicotine (Nicotine 21 Mg Patch.Td24) 21 mg TRANSDERMA DAILY [facility] Last Admin: 08/14/23 08:57 Dose: 21 mg Documented By: ETHAN Nystatin (Nystatin Powder 15 Gm Bottle) 1 appl TOPICAL TID [facility]; Protocol Last Admin: 08/14/23 09:52 Dose: 1 appl Documented By: ETHAN Ondansetron HCl (Ondansetron Hcl 4 Mg/2 Ml Vial) 4 mg IVPUSH Q8H PRN PRN Reason: Nausea and Vomiting Oxycodone HCl (Oxycodone Hcl Immed Release 5 Mg Tablet) 5 mg PO Q4H PRN PRN Reason: Pain, Moderate(Pain Scale 4-6) Oxycodone HCl (Oxycodone Hcl Immed Release 5 Mg Tablet) 10 mg PO Q4H PRN PRN Reason: Pain, Severe (Pain Scale 7-10) Last Admin: 08/14/23 08:57 Dose: 10 mg Documented By: ETHAN Pharmacy Consult (Consult Rx Vancomycin Dosing) 1 each MISCELLANE DAILY PRN PRN Reason: Consult order Pharmacy Consult (Consult Rx Vancomycin Dosing) 1 each MISCELLANE DAILY PRN PRN Reason: Consult order Senna (Sennosides 8.6 Mg Tablet) 17.2 mg PO BEDTIME PRN PRN Reason: Constipation Sodium Chloride (0.9 % Sodium Chloride Flush 3 Ml Syringe) 3 ml IVFLUSH QSHIFT [facility] Last Admin: 08/14/23 08:58 Dose: 3 ml Documented By: ETHAN Labs 08/13/23 13:58 08/15/23 06:14 Labs: Laboratory Results - last 24 hr 08/13/23 08/14/23 13:58 05:22 MCV 82.3 MCH 23.7 L MCHC 28.8 L RDW 17.2 H Plt Count 246 D MPV 10.1 Absolute Nucleated RBC 0.000 Nucleated RBC % (auto) 0.0 Anion Gap 11 L Estim Creat Clear Calc 77.7 75.6 Estimated GFR > 60 > 60 Random Glucose 97 Calcium 8.4 Random Vancomycin 13.1 L Procedures Date of Service Date of Service: 08/15/23 Progress Note: A&P Assessment and plan (1) S/P colostomy: Status: Acute Assessment and Plan: Passing flatus but no stools yet by the stoma On regular diet Encouraged to sit up Stoma care She did not want dressings on right buttock changed - she states she is waiting for nurse Plan to apply wound VAC tomorrow Time Spent With Patient Time: Total time managing care of this patient today ____ minutes. Quality Stroke Does the patient have a stroke diagnosis?: No VTE Prior VTE?: No VTE Risk Level:: Medical - moderate - high VTE Device Contraindication: N/A - Device Ordered VTE Drug Contraindication: N/A - Med Ordered
--- NOTE | 2023-08-14 13:06 | P.CDIM_ITS ---
PROVIDER RESPONSE TEXT: To clarify, the appropriate diagnosis supported by the clinical indicators: Acute QUERY TEXT: PHYSICIAN'S DOCUMENTATION REQUEST Date of Query: 08/12/2023 07:55 AM EDT Patient Name: Radhika Ch Admit Date: 08/07/2023 Dear Lluvia Dan, A review of the medical record indicates additional documentation may be needed. Please review below and update the documentation accordingly. Clinical Indicators: Per Hospitalist Progress Note 08/12/23: infected ischial decubitus ulcer ischial osteomyelitis - ID consulted, IV vanco x 6wk then PO doxy x 2mo, weekly CRP/ESR/Cr/vanco trough Clarify which of the following accurately represents the acuity of the Osteomyelitis. Possible options might include: Acute Acute on chronic Compensated Chronic stable condition Remission Other (explain)Clinically unable to determine (explain)Thank you, Jeannette Reynolds RN Use of terms such as suspected, likely, concern for, or probable (associated with a specific diagnosi s that is being evaluated, monitored, or treated as if it exists) are acceptable and can be coded in the inpatient se tting, when documented at the time of discharge. Please use your independent medical judgment in providing your response. THIS QUERY IS PART OF THE PERMANENT MEDICAL RECORD
--- NOTE | 2023-08-14 16:11 | MHC.CM.PN ---
[facility] HAS OFFERED A BED FOR FRIDAY 08/17 PENDING METHADONE GUEST DOSING TO BE SET UP ON WEDNESDAY 08/15 FOR A START DATE OF 08/18. AWARE. HECTOR WILL CONTINUE TO FOLLOW
--- NOTE | 2023-08-14 17:13 | HO.PM.IMPN ---
Subjective Subjective Date of Service: 08/14/23 Interval History: complaining of pain requesting for pain medications, no nausea no vomiting tolerating diet, no stool in stoma, patient agreeable to rehab placement, will send down for PICC line. Review of Systems all other system reviewed and negative Physical Exam Vital Signs: Vital Signs: Last Vital Signs Temp 97.5 F 08/14/23 07:52 Pulse 63 08/14/23 07:52 Resp 18 08/14/23 07:52 BP 127/81 08/14/23 07:52 Pulse Ox 96 08/14/23 07:52 O2 Del Method Room Air 08/14/23 07:52 O2 Flow Rate 2 08/12/23 23:39 BMI result Body Mass Index 21.9 Const: Other: Gen: Awake alert resting in bed in no acute distress HEENT: sclera anicteric, moist mucus membranes Neck: supple Lungs: clear to auscultation bilaterally Heart: regular rate and rhythm, no murmurs Abd: soft, ostomy in place no output, non-distended Ext: no edema, contraction deformity both knees Skin: large right ischial decubitus ulcer ,no drainage, dressing in place Neuro: alert and oriented x3, paraplegia Psych: appropriate affect Objective Data Active Medications Acetaminophen (Acetaminophen 325 Mg Tablet) 650 mg PO Q6H PRN PRN Reason: Pain, Mild (Pain Scale 1-3) Last Admin: 08/10/23 20:11 Dose: 650 mg Documented By: AME Docusate Sodium (Docusate Sodium 100 Mg Capsule) 100 mg PO BID [facility] Last Admin: 08/14/23 08:57 Dose: 100 mg Documented By: ETHAN Enoxaparin Sodium (Enoxaparin Sodium 40 Mg/0.4 Ml Syringe) 40 mg SUBCUT Q24H [facility] Last Admin: 08/13/23 19:06 Dose: Not Given Documented By: SAMIRA Non-Admin Reason: Patient Refused Ferrous Sulfate (Ferrous Sulfate 324 Mg Tablet.) 324 mg PO DAILY [facility] Last Admin: 08/14/23 08:57 Dose: 324 mg Documented By: ETHAN Hydromorphone HCl (Hydromorphone Hcl 0.5 Mg/0.5 Ml Syringe) 0.5 mg IVPUSH Q2H PRN; Protocol PRN Reason: Pain, Severe (Pain Scale 7-10) Last Admin: 08/14/23 13:05 Dose: 0.5 mg Documented By: ETHAN Vancomycin HCl 750 mg/ Sodium (Chloride) 265 mls @ 265 mls/hr IV Q12H [facility] Last Infusion: 08/14/23 13:50 Dose: Infused Documented By: ETHAN Ketorolac Tromethamine (Ketorolac Tromethamine 30 Mg/Ml Vial) 30 mg IVPUSH Q6H PRN PRN Reason: Breakthrough Pain Last Admin: 08/13/23 19:17 Dose: 30 mg Documented By: SAMIRA Lorazepam (Lorazepam 0.5 Mg Tablet) 0.5 mg PO Q12H PRN PRN Reason: anxiety Last Admin: 08/11/23 19:26 Dose: 0.5 mg Documented By: SAMIRA Methadone HCl (Methadone Hcl 20 Mg/2 Ml Oral.Conc) 80 mg PO DAILY [facility] Last Admin: 08/14/23 08:57 Dose: 80 mg Documented By: ETHAN Multivitamins/Vitamin C (Multivitamin Tablet) 1 tab PO DAILY [facility] Last Admin: 08/14/23 08:57 Dose: 1 tab Documented By: ETHAN Nicotine (Nicotine 21 Mg Patch.Td24) 21 mg TRANSDERMA DAILY [facility] Last Admin: 08/14/23 08:57 Dose: 21 mg Documented By: ETHAN Nystatin (Nystatin Powder 15 Gm Bottle) 1 appl TOPICAL TID [facility]; Protocol Last Admin: 08/14/23 09:52 Dose: 1 appl Documented By: ETHAN Ondansetron HCl (Ondansetron Hcl 4 Mg/2 Ml Vial) 4 mg IVPUSH Q8H PRN PRN Reason: Nausea and Vomiting Oxycodone HCl (Oxycodone Hcl Immed Release 5 Mg Tablet) 5 mg PO Q4H PRN PRN Reason: Pain, Moderate(Pain Scale 4-6) Oxycodone HCl (Oxycodone Hcl Immed Release 5 Mg Tablet) 10 mg PO Q4H PRN PRN Reason: Pain, Severe (Pain Scale 7-10) Last Admin: 08/14/23 15:41 Dose: 10 mg Documented By: AME Pharmacy Consult (Consult Rx Vancomycin Dosing) 1 each MISCELLANE DAILY PRN PRN Reason: Consult order Pharmacy Consult (Consult Rx Vancomycin Dosing) 1 each MISCELLANE DAILY PRN PRN Reason: Consult order Senna (Sennosides 8.6 Mg Tablet) 17.2 mg PO BEDTIME PRN PRN Reason: Constipation Sodium Chloride (0.9 % Sodium Chloride Flush 3 Ml Syringe) 3 ml IVFLUSH QSHIFT [facility] Last Admin: 08/14/23 08:58 Dose: 3 ml Documented By: ETHAN Labs 08/13/23 13:58 08/14/23 05:22 Labs: Laboratory Results - last 24 hr 08/14/23 05:22 Estim Creat Clear Calc 75.6 Estimated GFR > 60 Random Vancomycin 13.1 L Assessment and Plan (1) Osteomyelitis: Status: Acute Plan 47yo homeless, wheelchair-bound F [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 Discharged to her mother's home but never went there and has been living on the streets and not getting wound care. Presenting with worsening pain and discharge from the wound and found to have maggot infestation and osteomyelitis acute infected ischial decubitus ulcer/ ischial osteomyelitis - complaining of pain - case discussed with ID she recommend, IV vanco x 6wk then PO doxy x 2mo, weekly CRP/ESR/Cr/vanco trough, outpatient ID follow-up - BCx negative; patient agreed for rehab in PICC placement community mental health social worker [facility] bed [facility] - underwent diverting colostomy 08/12 no output from ostomy, continue Braun catheter - continue dressing change as per General surgery and Wound Care , plan for wound VAC on Friday - continue oxycodone, Toradol and IV Dilaudid by surgery - seen by psych patient has capacity to make medical decisions microcytic anemia - repleting Fe hypoK - repleted, potassium normalized tobacco abuse - NRT OUD - continue methadone - HBV immune from prior infection; HCV positive , HIV negative - denies recent substance abuse but Utox 07/27/23 was positive for fentayl and cocaine; seen by Addiction medication patient denied cravings or withdrawal symptoms felt doing well on methadone homelessness - patient agreed for short-term rehab placement, 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 nutritional supplementation to promote wound healing VTE ppx - LMWH dispo - will need STR for wound care + IV ABX In my clinical judgment, the patient requires continued inpatient hospitalization for the following reasons: IV ABX, PICC line, wound care, and surgical intervention. Time Spent With Patient Time: Total time managing care of this patient today ____ minutes. Quality Stroke Does the patient have a stroke diagnosis?: No VTE Prior VTE?: No VTE Risk Level:: Medical - moderate - high VTE Device Contraindication: N/A - Device Ordered VTE Drug Contraindication: N/A - Med Ordered
[2023-08-14 17:42] VITALS: BP 138/84; PULSE 66; RESP 20; TEMP 36; O2SAT 93
--- NOTE | 2023-08-14 17:42 | P.PICC_ITS ---
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 Following completion of [place] Protocol the skin and soft tissues were anesthetized with 1% Lidocaine plain. Using ultrasound guidance, The left basilic vein access was obtained in a second attempt by this RN. Over an 0.018 wire through peel-away sheath, a single 4 english lumen PASV PICC line was positioned. Catheter length is 42 cm internal length, 1 cm external length, for a total trimmed length of 43 cm. The procedure was performed in S272. Tip verification was performed by Sarthak Brock with Sherlock 3CG. Tip located in SVC. Ultrasound was used to document vein patency and for needle entry. A formal ultrasound picture and cardiac rhythm strip was recorded. Vascular Cotton Wringer has released the line for use and it is currently dressed with a StatLock, Tegaderm, and CHG disc. Verification has been performed for blood return and line patency. Arm Circumference: 22 cm Equipment: Devver SOLO Catheter with Sherlock 3 CG Tip Catheter Type: 4 english single lumen PASV PICC Lot #: [id number]
[2023-08-14 20:08] VITALS: BP 127/73; PULSE 80; RESP 20; TEMP 36.4; O2SAT 95
[2023-08-14] MEDS: LORazepam 0.5 MG TABLET PO (21:25)
[2023-08-14] MEDS: Ketorolac Tromethamine 30 MG/ML VIAL IVPUSH (21:31)
[2023-08-15] VITALS: BP 116/72; PULSE 56; RESP 19; TEMP 36.2; O2SAT 94
[2023-08-15] MEDS: oxyCODONE HCl Immed Release 5 MG TABLET 10 MG PO ×2 (01:19→06:14)
[2023-08-15] MEDS: HYDROmorphone HCl 0.5 MG/0.5 ML SYRINGE IVPUSH ×2 (03:49→09:28)
[2023-08-15] MEDS: Ketorolac Tromethamine 30 MG/ML VIAL IVPUSH (06:14)
[2023-08-15] MEDS: vancomycin HCL 750 MG in 0.9 % Sodium Chloride 250 ML 265 MG IV (06:14)
[2023-08-15 06:47] LABS: Creatinine Clr Calc Pharmacy 97.2; Estimated Glomerular Filt Rate > 60
[2023-08-15 08:00] VITALS: BP 118/82; PULSE 70; RESP 18; TEMP 36.2; O2SAT 97
[2023-08-15] MEDS: methADONE HCl 20 MG/2 ML ORAL.CONC 80 MG PO (09:27)
[2023-08-15] MEDS: Nicotine 21 MG PATCH.TD24 TRANSDERMA (09:27)
[2023-08-15] MEDS: 0.9 % Sodium Chloride Flush 3 ML SYRINGE IVFLUSH (09:27)
--- NOTE | 2023-08-15 11:53 | P.PNGS_ITS ---
Subjective Subjective Date of Service: 08/15/23 <Agnes Saleem PA-C - Last Filed: 08/15/23 11:58> 08/15/23 <Stephen Bishop MD - Last Filed: 08/15/23 12:14> Interval history: States she is very upset, anxious, depressed. She is leaving AMA. Does not want to stay in the hospital any longer or go to STR. <Agnes Saleem PA-C - Last Filed: 08/15/23 11:58> Physical Exam 2 Vital Signs: Vital Signs: Last Vital Signs Temp 97.1 F 08/15/23 08:00 Pulse 70 08/15/23 08:00 Resp 18 08/15/23 08:00 BP 118/82 08/15/23 08:00 Pulse Ox 97 08/15/23 08:00 O2 Del Method Room Air 08/15/23 08:00 O2 Flow Rate 2 08/12/23 23:39 BMI result Body Mass Index 21.9 <Agnes Saleem PA-C - Last Filed: 08/15/23 11:58> Const: General: comfortable, no acute distress, alert and anxious < Agnes Saleem PA-C - Last Filed: 08/15/23 11:58> Orientation/consciousness: patient oriented x3 <SOLOMON Crum Last Filed: 08/15/23 11:58> Resp: Effort & Inspection: normal respiratory effort <Agnes Saleem PA-C - Last Filed: 08/15/23 11:58> GI: Other: ostomy viable appearing <Agnes Saleem PA-C - Last Filed: 08/15/23 11:58> Inspection: No distended and Yes incision (clean) <SOLOMON Crum Last Filed: 08/15/23 11:58> Palpation (GI): Soft to palpation, Tenderness to palpation present (GI) (mild incisional), no guarding and not rigid <SOLOMON Crum Last Filed: 08/15/23 11:58> Skin: Other: right ischial decubitus ulcer clean and wound is granulating well, no further eschar or necrotic tissue noted, small amount of sanguineous drainage <Agnes Saleem PA-C - Last Filed: 08/15/23 11:58> General skin exam: no rashes or lesions noted <Agnes Saleem PA-C - Last Filed: 08/15/23 11:58> Neuro: General: patient oriented x3 <Agnes Saleem PA-C - Last Filed: 08/15/23 11:58> Objective Data Active Medications Acetaminophen (Acetaminophen 325 Mg Tablet) 650 mg PO Q6H PRN PRN Reason: Pain, Mild (Pain Scale 1-3) Last Admin: 08/10/23 20:11 Dose: 650 mg Documented By: AME Docusate Sodium (Docusate Sodium 100 Mg Capsule) 100 mg PO BID [facility] Last Admin: 08/15/23 09:36 Dose: Not Given Documented By: KAYLEY Non-Admin Reason: Patient Refused Enoxaparin Sodium (Enoxaparin Sodium 40 Mg/0.4 Ml Syringe) 40 mg SUBCUT Q24H [facility] Last Admin: 08/14/23 18:00 Dose: Not Given Documented By: AME Non-Admin Reason: Patient Refused Ferrous Sulfate (Ferrous Sulfate 324 Mg Tablet.Dr) 324 mg PO DAILY [facility] Last Admin: 08/15/23 09:36 Dose: Not Given Documented By: KAYLEY Non-Admin Reason: Patient Refused Hydromorphone HCl (Hydromorphone Hcl 0.5 Mg/0.5 Ml Syringe) 0.5 mg IVPUSH Q2H PRN; Protocol PRN Reason: Pain, Severe (Pain Scale 7-10) Last Admin: 08/15/23 09:28 Dose: 0.5 mg Documented By: KAYLEY Vancomycin HCl 750 mg/ Sodium (Chloride) 265 mls @ 265 mls/hr IV Q12H [facility] Last Infusion: 08/15/23 07:23 Dose: Infused Documented By: KAYLEY Ketorolac Tromethamine (Ketorolac Tromethamine 30 Mg/Ml Vial) 30 mg IVPUSH Q6H PRN PRN Reason: Breakthrough Pain Last Admin: 08/15/23 06:14 Dose: 30 mg Documented By: RUTHY Lorazepam (Lorazepam 0.5 Mg Tablet) 0.5 mg PO Q12H PRN PRN Reason: anxiety Last Admin: 08/14/23 21:25 Dose: 0.5 mg Documented By: AME Methadone HCl (Methadone Hcl 20 Mg/2 Ml Oral.Conc) 80 mg PO DAILY [facility] Last Admin: 08/15/23 09:27 Dose: 80 mg Documented By: KAYLEY Multivitamins/Vitamin C (Multivitamin Tablet) 1 tab PO DAILY [facility] Last Admin: 08/15/23 09:36 Dose: Not Given Documented By: KAYLEY Non-Admin Reason: Patient Refused Nicotine (Nicotine 21 Mg Patch.Td24) 21 mg TRANSDERMA DAILY [facility] Last Admin: 08/15/23 09:27 Dose: 21 mg Documented By: KAYLEY Nystatin (Nystatin Powder 15 Gm Bottle) 1 appl TOPICAL TID [facility]; Protocol Last Admin: 08/15/23 09:36 Dose: Not Given Documented By: KAYLEY Non-Admin Reason: Patient Refused Ondansetron HCl (Ondansetron Hcl 4 Mg/2 Ml Vial) 4 mg IVPUSH Q8H PRN PRN Reason: Nausea and Vomiting Oxycodone HCl (Oxycodone Hcl Immed Release 5 Mg Tablet) 5 mg PO Q4H PRN PRN Reason: Pain, Moderate(Pain Scale 4-6) Oxycodone HCl (Oxycodone Hcl Immed Release 5 Mg Tablet) 10 mg PO Q4H PRN PRN Reason: Pain, Severe (Pain Scale 7-10) Last Admin: 08/15/23 06:14 Dose: 10 mg Documented By: RUTHY Pharmacy Consult (Consult Rx Vancomycin Dosing) 1 each MISCELLANE DAILY PRN PRN Reason: Consult order Pharmacy Consult (Consult Rx Vancomycin Dosing) 1 each MISCELLANE DAILY PRN PRN Reason: Consult order Senna (Sennosides 8.6 Mg Tablet) 17.2 mg PO BEDTIME PRN PRN Reason: Constipation Sodium Chloride (0.9 % Sodium Chloride Flush 3 Ml Syringe) 3 ml IVFLUSH QSHIFT [facility] Last Admin: 08/15/23 09:27 Dose: 3 ml Documented By: KAYLEY <Agnes Saleem PA-C - Last Filed: 08/15/23 11:58> Labs CBC & Chem 7: 08/13/23 13:58 09/22/23 06:14 <Agnes Saleem PA-C - Last Filed: 08/15/23 11:58> Labs: Laboratory Results - last 24 hr 08/15/23 06:14 Estim Creat Clear Calc 97.2 Estimated GFR > 60 <Agnes Saleem PA-C - Last Filed: 08/15/23 11:58> Procedures Date of Service Date of Service: 08/15/23 <Agnes Saleem PA-C - Last Filed: 08/15/23 11:58> 08/15/23 <Stephen Bishop MD - Last Filed: 08/15/23 12:14> Progress Note: A&P Assessment and plan (1) S/P colostomy: Status: Acute <Agnes Saleem PA-C - Last Filed: 08/15/23 11:58> Assessment and Plan: pt seen mulitple times she has been stating she is signing out AMA I had discussions wiht her about need to stay so good wound care can be arranged with WOund Vac and VNA best for her to stay in SNF temporarily she has refused recommendations stoma with liquid stools passing flatus via stoma 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 Overall patient doing well. Abd is benign, ostomy functioning. Ulcer remains clean and is beginning to granulate. Plan was for wound vac however patient states she is leaving AMA today. Therefore unable to obtain home wound vac unit and wet to dry dressing changes may be more feasible for this patient at this time. Had very lengthy discussion about the risks of leaving AMA and not receiving IV antibiotics, not having good wound care including wound infection, sepsis, bacteremia. She understands and wants to leave. She states she will follow up in the office in 1 week for wound check. <Agnes Saleem PA-C - Last Filed: 08/15/23 11:58> Time Spent With Patient Time: Total time managing care of this patient today ____ minutes. <Agnes Saleem PA-C - Last Filed: 08/15/23 11:58> Quality Stroke Does the patient have a stroke diagnosis?: No <Agnes Saleem PA-C - Last Filed: 08/15/23 11:58> VTE Prior VTE?: No <Agnes Saleem PA-C - Last Filed: 08/15/23 11:58> VTE Risk Level:: Medical - moderate - high <Agnes Saleem PA-C - Last Filed: 08/15/23 11:58> VTE Device Contraindication: N/A - Device Ordered <Agnes Saleem PA-C - Last Filed: 08/15/23 11:58> VTE Drug Contraindication: N/A - Med Ordered <Agnes Saleem PA-C - Last Filed: 08/15/23 11:58>
--- NOTE | 2023-08-15 14:14 | PM.EVENT ---
Event Note Date of Service: 08/15/23 Event Note: PICC line removed. 42 cm of catheter recovered. Patient tolerated the procedure well. Dry dressing applied Time Spent With Patient Time: Total time managing care of this patient today ____ minutes.
--- NOTE | 2023-08-15 14:55 | MHC.CM.PN ---
PT HAS DECLINED TO STAY AT [facility] [place]UE [place]. PT HAS DECIDED TO GO AMA. PT'S MOTHER WILL BE BRINGING HER W/C AND CLOTHING . THIS CM SPOKE WITH SW AT [facility] (TARA JARA [phone]) WHO STATES THE SECTION 35 FILED BY FAMILY HAS AND WILL NOT BE RENEWED AT THIS TIME.
--- NOTE | 2023-08-15 15:32 | PM.DS ---
DS: Providers Provider Date of Service: 08/15/23 Date of admission: 08/07/23 16:51 Primary care physician: Shanelle Hoyt MD Consults: 08/07/23 16:21 Consult to General Surgery Routine Consulting Provider: [facility] – [place] General Surgeons Reason for consultation: infected decub ulcer/sacral osteo. Debridement recommended Consult to Infectious Diseases Routine Consulting Provider: [facility] – [place] Infectious Disease Reason for consultation: infected decubitus ulcer/maggots Consult to Wound Care Routine Consulting Provider: [facility] – [place] Wound Care Management Reason for consultation: infected decubitus ulcer/maggots 08/08/23 11:43 Addiction Medicine Routine Consulting Provider: Addiction Covering Reason for consultation: oud 08/13/23 13:39 Consult to Psychiatry Routine Consulting Provider: Psych Covering Reason for consultation: severino cardenas Has provider been notified: Yes DS: Diagnosis Discharge Diagnosis (1) S/P colostomy: Status: Acute DS: Summary Hospital Course Hospital Course: History of presenting illness: Date of Service: 08/07/23 Chief Complaint: infected wound 47yo F with hx polysubstance abuse, opioid use disorder on methadone, mood disorder, and infected sacral decubitus ulcer. She also has history of thoracic vertebral osteomyelitis and underwent C5-T4 fusion and T1-T2 laminectomies on 02/12/23. She is homeless and wheelchair-bound. She was just admitted here 07/26-07/30/23 for infection of the decubitus ulcer. No osteomyelitis. She underwent bedside debridement by surgical forceps fabricator on 07/26 and 07/28/23 and was discharged on doxycycline and amoxicillin-clavulanate. She was going to live with her mother, who was supposed to change the wound. However, the patient states that she never went to live with her mother as her mother is not allowed to have her or anyone else live in the public housing unit. As a result, she has been staying on the streets and not caring for her wound. She comes in with worsening pain and discharge from her decubitus ulcer. No fever or chills. No weakness or numbness of legs. She says she has been taking her antibiotics. There are maggots coming out of the wound. The wound was cleaned in the ED and she was given IV vancomycin and piperacillin-tazobactam. Hospital course: 47yo homeless, wheelchair-bound F [paraplegic ] with hx polysubstance abuse, opioid use disorder on methadone, mood disorder, thoracic vertebral osteomyelitis s/p C5-T4 fusion and T1-T2 laminectomies 02/12/23, and infected decubitus ulcer who was just admitted here 07/26-07/30/23 for infection of the decibitus ulcer. Discharged to her mother's home but never went there and has been living on the streets and not getting wound care. Presenting with worsening pain and discharge from the wound and found to have maggot infestation and osteomyelitis. Discharge diagnosis: acute infected ischial decubitus ulcer/ ischial osteomyelitis patient seen by infectious disease and placed on IV vancomycin , blood cultures x2 were negative, patient underwent diverting colostomy on 08/12 due to stooling and was placed on Braun catheter due to incontinence to avoid soiling of wound, patient was followed closely by General surgery for wound care was supposed to have wound VAC placed however patient declined the procedure, and decided to leave against medical advice patient had a PICC line placed for 6 weeks of IV antibiotics followed by 2 weeks of by mouth doxycycline patient was scheduled to be [facility] for [facility] care as well as management of ostomy, patient is adamant to leave the hospital , had lengthy discussion with patient in the presence of RN, hospital nursing assistant, informed her about risk of worsening infection, bacteremia, sepsis and ,patient showed understanding and wants to leave, PICC line removed patient is being discharged home with 2 months of by mouth doxycycline she is recommended to follow up with General surgery in 1 week, Oxycodone 5 mg 14 tablets dispensed, she is recommended follow-up at methadone clinic, recommend high-protein diet, Ensure ,script for multivitamin and Colace given to avoid constipation, patient has capacity to make medical decisions , verbalizes understanding of worsening infection and , recommended patient to return to [facility] with worsening fever, wound or pain. microcytic anemia recommend to continue ferrous sulfate hypoK - repleted, potassium normalized. tobacco abuse strongly recommend to abstain from smoking for better wound healing being discharged on nicotine patch In regard to opiate use disorder he recommended to continue methadone, she denies recent substance abuse but Utox 07/27/23 was positive for fentayl and cocaine; seen by Addiction medication patient denied cravings or withdrawal symptoms. Time Spent with Patient Time attestation: Total time managing care of this patient today ____ minutes. Discharge coordination time: Greater than 30 minutes Quality: Safe Use of Opioids Does Pt have an Active Cancer Diagnosis on the Problem List?: No Quality: Stroke Does the patient have a stroke diagnosis?: No Physical Exam Vital Signs: Vital Signs: Last Vital Signs Temp 97.1 F 08/15/23 08:00 Pulse 70 08/15/23 08:00 Resp 18 08/15/23 08:00 BP 118/82 08/15/23 08:00 Pulse Ox 97 08/15/23 08:00 O2 Del Method Room Air 08/15/23 08:00 O2 Flow Rate 2 08/12/23 23:39 BMI result Body Mass Index 21.9 Const: Other: Gen: Awake alert X3, resting in bed in no acute distress HEENT: sclera anicteric, moist mucus membranes Neck: supple Lungs: clear to auscultation bilaterally Heart: regular rate and rhythm, no murmurs Abd: soft, ostomy in place, small serosanguineous drainage, non-distended Ext: no edema, contraction deformity both knees Skin: large right ischial decubitus ulcer ,no drainage, dressing in place,( as per surgery wound is granulating well with no further eschar or necrotic tissue small amount of sanguinous drainage) Neuro: alert and oriented x3, paraplegia Psych: appropriate affect DS: Data Data Completed and Pending Completed studies during hospitalization [Text1]: Procedures Excision of Right Hip Muscle, Open Approach (07/26/23) Labs on day of discharge: Laboratory Results - last 24 hr 08/15/23 06:14 Creatinine 0.56 Estim Creat Clear Calc 97.2 Estimated GFR > 60 Discharge Plan Discharge Anticipated Discharge Date/Time: 08/15/23 11:53 Patient Disposition: Left Against Medical Advice Discharge Diagnosis: Acute infected ischial tube decubitus ulcer and osteomyelitis diverting colostomy Tobacco use disorder Opiate use disorder Referrals: Stephen Bishop MD [Physician] - 1 Week Shanelle Hassan MD [Primary Care Provider] - 1 Week Discharge Medications: New oxycodone 5 mg Tablet 10 mg PO Q6H PRN (Reason: Pain, Severe (Pain Scale 7-10)) Qty: 16 0RF Rx Instructions: Partial Fill upon patient request. (DME) colostomy bags 3 misc See Rx Instructions .ROUTE .MEDSUPPLY Qty: 30 2RF Rx Instructions: As directed acetaminophen 325 mg Tablet 650 mg PO Q6H PRN (Reason: Pain, Mild (Pain Scale 1-3)) Qty: 60 0RF nicotine 21 mg/24 hr Patch 24 Hour 21 mg transdermal DAILY Qty: 30 0RF doxycycline hyclate 100 mg capsule 100 mg PO BID Qty: 120 0RF ferrous sulfate 324 mg (65 mg iron) tablet,delayed release (DR/EC) 324 mg PO DAILY Qty: 90 0RF multivitamin Tablet 1 tab PO DAILY Qty: 90 0RF docusate sodium [Colace] 100 mg capsule 100 mg PO BID Qty: 180 0RF Continued methadone 10 mg/mL Concentrate 80 mg PO DAILY ibuprofen 400 mg tablet 400 mg PO Q8H PRN (Reason: pain (scale score 4-6)) Qty: 30 0RF Discontinued doxycycline monohydrate 100 mg capsule 100 mg PO BID Qty: 20 0RF Rx Instructions: SHOULD HAVE A COUPLE OF DAYS LEFT amoxicillin-pot clavulanate 875-125 mg tablet 1 tab PO BID Qty: 20 0RF Rx Instructions: PATIENT SHOULD STILL HAVE A COUPLE OF DOSES LEFT Discharge Orders: Discharge Order (Routine); Ordered 08/15/23 Ordered By: Lluvia Dan Diet: Advance to usual diet Activity on Discharge: As tolerated Stand Alone Forms: Patient Portal Discharge page, Against Medical Advice Activity Restrictions/Additional Instructions: Decubitus ulcer wound care: wet to dry kerlix roll followed by dry fluffs and abdominal dressing, kept in place with mesh underwear Colostomy change : Coloplast: #[id number] ; change every 3-4 days and as needed. Take doxycycline 100 mg 1 tablet twice daily for 2 months Take high-protein diet/Ensure can twice daily to promote wound healing Continue methadone at methadone clinic Care Plan Goals: Colostomy care Change Braun catheter every 30 days Return to [facility] with worsening right buttock wound, fevers chills, inability to manage colostomy bag, worsening pain, lightheadedness, dizziness. Health Concerns: Right ischial wound Diverting colostomy Braun catheter for wound healing Plan of Treatment: Follow-up appointment with Dr. Bishop in 1 week for wound check Assessment: As above Patient Instructions: Colostomy Care (GEN), Braun Catheter Placement and Care (GEN), Urinary Leg Bag (GEN)
[2023-08-15 16:00] VITALS: BP 136/84; PULSE 62; RESP 20; TEMP 36.6; O2SAT 98
--- NOTE | 2023-08-15 16:00 | PC.NURSE ---
Dr Lowe notified that PICC line that he removed was 43 CM long upon insertion. He stated that he removed 43 CM and he will correct his report which states PICC was 42 CM upon removal.
--- NOTE | 2023-08-15 17:32 | PC.NURSE ---
Pt very irritated at the onset of shift. Pt refused to be assessed and refused all meds except for methadone and dilaudid. Pt refused surgeon and wound vac, would not allow a dressing change. Pt requested to leave AMA. Case management, Fabric Pattern Grader, Plaster Helper, and Nurse educator all contacted. Despite multiple attempts at retaining on floor pt decided she was still leaving. Mother came into hospital to attempt to dissuade pt from leaving and was also unsuccessful. Question about valid section [address] was researched, [address] was called by Emily Chakraborty, case management, and it was discovered that section 35 , and was only good for 5 days. All potential risks and complications were explained at length to patient. Pt stated that she didn't care and was leaving anyway . Dr. Lowe was notified to remove PICC line from patient. Secured a wheelchair, clothing, and prescriptions for patient. Educated her on roberts and colostomy care. Patient signed AMA form, witnessed by Camila Burrows RN. Pt was wheeled to lobby and left on her own accord.
--- NOTE | 2023-08-20 12:58 | P.CDIM_ITS ---
PROVIDER RESPONSE TEXT: To clarify, the appropriate diagnosis supported by the clinical indicators: stage 4 QUERY TEXT: PHYSICIAN'S DOCUMENTATION REQUEST Date of Query: 08/08/2023 12:30 PM EDT Patient Name: Radhika Ch Admit Date: 08/07/2023 Dear Renetta Shah, A review of the medical record indicates additional documentation may be needed. Please review below and update the documentation accordingly. Clinical Indicators: Per Hospitalist Progress Note 08/08/23: infected sacral decubitus ulcer - pip/cristo + vanco d2 - follow BCx - wet-dry saline-soaked gauze daily - pain control with APAP, IV morphine Based on the above, could you please provide further information regarding the stage of the decubitus ulcer/wound: stage 1 stage 2 stage 3 stage 4 unstageable Other (explain)Clinically unable to determine (explain)Thank you, Jeannette Reynolds RN Use of terms such as suspected, likely, concern for, or probable (associated with a specific diagnosi s that is being evaluated, monitored, or treated as if it exists) are acceptable and can be coded in the inpatient se tting, when documented at the time of discharge. Please use your independent medical judgment in providing your response. THIS QUERY IS PART OF THE PERMANENT MEDICAL RECORD
--- NOTE | 2023-08-28 08:34 | MHC.CM.PN ---
Patient is homeless and recently left AMA. Patient is w/c bound, has an infected Ulcer with Maggots noted, and a colostomy. Patient receives her Methadone from [facility] in [place]. DC plan is TBD; CM will follow.
== END 2023-08-15 17:26 | disposition left against medical advice (07) | DRG 364 ==
LOC: HO.ED 16:11 → HO.EDOVER 17:42 → HO.S3 18:03
PROVIDERS: Physician Assistant Medical; Surgery; Admitting Provider Family Medicine; Emergency Provider Emergency Medicine; PCP Student in an Organized Health Care Education/Training Program; Visit Provider Hospitalist
PROC: 0QB20ZZ Excision of Right Pelvic Bone, Open Approach (ICD-10-PCS; CPT 49320; principal; 2023-08-12 09:10)
PROC: 0QB20ZZ Excision of Right Pelvic Bone, Open Approach (ICD-10-PCS; 2023-08-12 09:10)
PROC: 02HV33Z Insertion of Infusion Device into Superior Vena Cava, Percutaneous Approach (ICD-10-PCS; principal; 2023-08-14 15:00)
DX: L89.154 Pressure ulcer of sacral region, stage 4 (principal); G82.20 Paraplegia, unspecified; M86.18 Other acute osteomyelitis, other site; B87.1 Wound myiasis; F11.20 Opioid dependence, uncomplicated; D50.9 Iron deficiency anemia, unspecified; E87.6 Hypokalemia; K66.0 Peritoneal adhesions (postprocedural) (postinfection); F39 Unspecified mood [affective] disorder; F17.210 Nicotine dependence, cigarettes, uncomplicated; Z59.02 Unsheltered homelessness; Z71.6 Tobacco abuse counseling; Z86.14 Personal history of Methicillin resistant Staphylococcus aureus infection; Z98.1 Arthrodesis status; Z99.3 Dependence on wheelchair; Z79.899 Other long term (current) drug therapy
CPT/HCPCS: 36415; 36573; 72192; 80048; 80053; 80202; 82565; 83605; 83735; 85025; 85027; 85652; 86140; 86704; 86706; 86803; 87040; 87340; 87389; 97163; 99285; C1751; C1758; J0131; J1170; J1650; J1885; J2270; J2405; J2543; J2795; J3010; J3370; J3371

== ENCOUNTER → 2023-08-07 13:31 | Outpatient (BNV) | payer MEDICAID, SELFPAY | PROVIDERS: Emergency Provider Emergency Medicine; Visit Provider Family Medicine | DX: M86.18 Other acute osteomyelitis, other site (principal) | CPT/HCPCS: 99223; 99232; 99233; 99239; 99499 ==

== ENCOUNTER → 2023-08-07 16:51 | Outpatient (BNV) | payer MEDICAID, SELFPAY | PROVIDERS: Admitting Provider Family Medicine; Emergency Provider Emergency Medicine; PCP Student in an Organized Health Care Education/Training Program; Visit Provider Physician Assistant Surgical | DX: L89.153 Pressure ulcer of sacral region, stage 3 (principal); M86.18 Other acute osteomyelitis, other site; Z93.3 Colostomy status | CPT/HCPCS: 11043; 11046; 44188; 99024; 99222; 99499 ==

== ENCOUNTER → 2023-08-07 16:51 | Outpatient (BNV) | payer OTHER, SELFPAY | PROVIDERS: Admitting Provider Family Medicine; Emergency Provider Emergency Medicine; PCP Student in an Organized Health Care Education/Training Program; Visit Provider Social Worker | DX: F39 Unspecified mood [affective] disorder (principal) | CPT/HCPCS: 99232 ==

== ENCOUNTER → 2023-08-07 16:51 | Outpatient (BNV) | payer MEDICAID, SELFPAY | PROVIDERS: Admitting Provider Family Medicine; Emergency Provider Emergency Medicine; Visit Provider Internal Medicine | DX: R78.81 Bacteremia (principal); M86.9 Osteomyelitis, unspecified | CPT/HCPCS: 99222 ==

== ENCOUNTER 2023-08-15 22:39 | Emergency (ER) | payer MEDICAID, SELFPAY ==
[2023-08-15 22:52] VITALS: BP 143/93; PULSE 127; RESP 16; TEMP 36.8; O2SAT 92; BMI 21.0
--- NOTE | 2023-08-16 01:49 | ED.FALL ---
HPI - Fall General Chief Complaint: Fall Stated Complaint: Fall Time Seen by Provider: 08/16/23 01:48 Source: patient Mode of arrival: wheelchair Limitations: no limitations History of Present Illness HPI Narrative: Patient 47 years old with polysubstance abuse opiate use disorder on methadone mood disorder infected sacral decubital ulcer frequent ED visits and admissions last admission was 08/07 discharge yesterday history of thoracic vertebral osteomyelitis homeless and wheelchair-bound comes here as while transferring from wheelchair to the bed she fell without any significant injuries patient does not have a home now requesting placement which she was not aware the time of discharge Related Data Home Medications Medication Instructions Recorded Confirmed methadone 10 mg/mL oral concentrate 80 mg PO DAILY 07/28/23 08/09/23 Previous Rx's Medication Instructions Recorded ibuprofen 400 mg tablet 400 mg PO Q8H PRN pain (scale 07/30/23 score 4-6) #30 tabs acetaminophen 325 mg tablet 650 mg (2 x 325 mg) PO Q6H PRN 08/15/23 Pain, Mild (Pain Scale 1-3) #60 tabs colostomy bags 3 #30 ea 08/15/23 docusate sodium 100 mg capsule 100 mg PO BID #180 caps 08/15/23 (Colace) doxycycline hyclate 100 mg capsule 100 mg PO BID #120 caps 08/15/23 ferrous sulfate 324 mg (65 mg 324 mg PO DAILY #90 tabs 08/15/23 iron) tablet,delayed release multivitamin 1 tab PO DAILY #90 tabs 08/15/23 nicotine 21 mg/24 hr daily 21 mg transdermal DAILY #30 ea 08/15/23 transdermal patch oxycodone 5 mg tablet 10 mg (2 x 5 mg) PO Q6H PRN Pain, 08/15/23 Severe (Pain Scale 7-10) #16 tabs Allergies Allergy/AdvReac Type Severity Reaction Status Date / Time codeine [Codeine] Allergy Intermediate ITCHING, Verified 08/15/23 23:00 VOMTING, THROAT SWELLS tramadol [TRAMADOL] Allergy Intermediate BODY Verified 08/15/23 23:00 SWELLING Review of Systems Review of Systems: Yes all other systems are reviewed and are negative PMFSH Past Medical History Medical History History of osteomyelitis (~09/22/23) Cocaine use disorder Opioid use disorder Anemia Polysubstance (including opioids) dependence, daily use Drug abuse in remission Asthma Surgical History History of spinal fusion Family History Family History Other Opioid use disorder Social History Social History Household Members: None Household Members Other:: homeless Housing: Homeless Housing Other:: homeless Do you presently have visiting nurse or other home services: No Alcohol intake: never Patient Tobacco Use Status: Never used Tobacco Tobacco use type: Cigarette Cigarettes Per Day: 2 Smoked in Last 30 Days: Yes Use of substances other than those prescribed or required for medical reasons: No Substance Use Type: Former Substance User Advance Directives: Yes Advance Directives on File: Yes Advance Directives Date on File: 06/16/23 Patient : No service: No Physical Exam Vital Signs: Vital Signs: Last Vital Signs Temp 98.3 F 08/15/23 22:52 Pulse 127 H 08/15/23 22:52 Resp 16 08/15/23 22:52 BP 143/93 H 08/15/23 22:52 Pulse Ox 92 08/15/23 22:52 O2 Del Method Room Air 08/15/23 22:52 BMI result Body Mass Index 21.0 Appearance: Alert. Oriented X3. No acute distress. Eyes: PERRLA, No Nystagmus ENT: Pharynx normal. Oral Mucosa moist Neck: Normal inspection. Neck supple. CVS: Normal heart rate and rhythm. Pulses normal. Respiratory: No respiratory distress. Equal air entry bilateral, no wheezing/rales/rhonchi Abdomen: Soft and nontender. Bowel sounds are present, no mass palpable, no CVA tenderness colostomy bag Skin: Skin warm and dry. Normal skin color. Normal skin turgor. Sacral decubiti Extremities: No lower extremity edema. No calf tenderness Neuro: Oriented X 3. No motor deficit. No sensory deficit.No cerebellar signs , cranial nerves II-XII intact Medications Administered Discontinued Medications Generic Name Dose Route Start Last Admin Trade Name Freq PRN Reason Stop Dose Admin Ibuprofen 600 mg 08/16/23 02:45 08/16/23 03:12 Ibuprofen 600 Mg Tablet PO 08/16/23 02:46 600 mg ONCE ONE Administration Medical Decision Making Medical Decision Making [facility] Narrative: Patient wheelchair-bound with sacral decubital with osteomyelitis and epidural abscess of the spine just discharged yesterday comes back as fell without a significant injuries now she is seeing that she does only place to go and she is homeless and looking for placement will get a case management for placement Discharge Plan Discharge Clinical Impression: Decubitus ulcer, History of osteomyelitis Patient Disposition: Still a Patient Prescriptions: No Action oxycodone 5 mg Tablet 10 mg PO Q6H PRN (Reason: Pain, Severe (Pain Scale 7-10)) Qty: 16 0RF Rx Instructions: Partial Fill upon patient request. (DME) colostomy bags 3 misc See Rx Instructions .ROUTE .MEDSUPPLY Qty: 30 2RF Rx Instructions: As directed acetaminophen 325 mg Tablet 650 mg PO Q6H PRN (Reason: Pain, Mild (Pain Scale 1-3)) Qty: 60 0RF nicotine 21 mg/24 hr Patch 24 Hour 21 mg transdermal DAILY Qty: 30 0RF doxycycline hyclate 100 mg capsule 100 mg PO BID Qty: 120 0RF ferrous sulfate 324 mg (65 mg iron) tablet,delayed release (DR/EC) 324 mg PO DAILY Qty: 90 0RF multivitamin Tablet 1 tab PO DAILY Qty: 90 0RF docusate sodium [Colace] 100 mg capsule 100 mg PO BID Qty: 180 0RF methadone 10 mg/mL Concentrate 80 mg PO DAILY ibuprofen 400 mg tablet 400 mg PO Q8H PRN (Reason: pain (scale score 4-6)) Qty: 30 0RF
--- NOTE | 2023-08-16 02:23 | PC.NURSE ---
PT REQUESTED AND GIVEN WARM BLANKET
[2023-08-16] MEDS: Ibuprofen 600 MG TABLET PO (03:12)
--- NOTE | 2023-08-16 03:46 | PC.NURSE ---
Assumed care of pt. Pt lying on stretcher, eyes closed, respirations even and unlabored. No acute distress at this time.
--- NOTE | 2023-08-16 06:50 | HE.PHANOTE ---
RE: METHADONE VERIFICATION PT WAS DISCHARGED 08/15 FROM THIS FACILITY. LAST METHADONE WAS HERE 08/15 @0994 FOR 80 MG
[2023-08-16] MEDS: methADONE HCl 20 MG/2 ML ORAL.CONC 80 MG PO (07:18)
--- NOTE | 2023-08-16 07:19 | PC.NURSE ---
Assumed care of Pt at 620. arrived from [facility] Pt alert and oriented. plan for case management medications administered as per JAN.
--- NOTE | 2023-08-16 09:00 | PC.NURSE ---
assumed care of this pt at 0715. pt given her methadone by rn going off shift. 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 denies pain at this time. breakfast given. pt to be seen by Care Team. will continue to observe.
[2023-08-16 09:14] VITALS: BP 147/85; PULSE 85; O2SAT 96
--- NOTE | 2023-08-16 13:07 | PC.NURSE ---
pt reports that she called her son to pick her up and she will go stay with him when discharged.
--- NOTE | 2023-08-16 13:27 | PC.NURSE ---
pt cleared for discharge, discharge instructions reviewed with pt and son at bedside. son placed pt in w/c and wheeled her out to his car.
== END 2023-08-16 13:27 | disposition home or self-care (01) ==
PROVIDERS: Emergency Provider Internal Medicine
DX: L89.159 Pressure ulcer of sacral region, unspecified stage (principal); F11.20 Opioid dependence, uncomplicated; F17.210 Nicotine dependence, cigarettes, uncomplicated; Z79.899 Other long term (current) drug therapy; Z87.39 Personal history of other diseases of the musculoskeletal system and connective tissue
CPT/HCPCS: 99284

== ENCOUNTER 2023-08-27 21:28 | Inpatient (IN) | payer MEDICAID, SELFPAY ==
--- NOTE | ~2023-08-27 | XR_ITS ---
EXAMINATION: XR CHEST CLINICAL INFORMATION: Line placement. COMPARISON: 01/21/2023 TECHNIQUE: Frontal view of the chest was obtained. FINDINGS: The cardiomediastinal silhouette is stable. A left approach central line terminates at the lower SVC/right atrial junction. There is no pneumothorax. There is no focal consolidation or pleural effusion. XR/XR chest 1V IMPRESSION: Left approach central line terminates at the lower SVC/right atrial junction. There is no pneumothorax.
[2023-08-27 21:44] VITALS: BP 100/70; PULSE 94; O2SAT 96
--- NOTE | 2023-08-27 21:48 | ED.GENADULT ---
HPI - General Adult General Chief complaint: General Medical Stated complaint: possible sepsis , etoh unk substance. 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 and use alcohol today patient noncompliant with her medications Related Data Home Medications Medication Instructions Recorded Confirmed methadone 10 mg/mL oral concentrate 80 mg PO DAILY 07/28/23 08/09/23 Previous Rx's Medication Instructions Recorded ibuprofen 400 mg tablet 400 mg PO Q8H PRN pain (scale 07/30/23 score 4-6) #30 tabs acetaminophen 325 mg tablet 650 mg (2 x 325 mg) PO Q6H PRN 08/15/23 Pain, Mild (Pain Scale 1-3) #60 tabs colostomy bags 3 #30 ea 08/15/23 docusate sodium 100 mg capsule 100 mg PO BID #180 caps 08/15/23 (Colace) doxycycline hyclate 100 mg capsule 100 mg PO BID #120 caps 08/15/23 ferrous sulfate 324 mg (65 mg 324 mg PO DAILY #90 tabs 08/15/23 iron) tablet,delayed release multivitamin 1 tab PO DAILY #90 tabs 08/15/23 nicotine 21 mg/24 hr daily 21 mg transdermal DAILY #30 ea 08/15/23 transdermal patch oxycodone 5 mg tablet 10 mg (2 x 5 mg) PO Q6H PRN Pain, 08/15/23 Severe (Pain Scale 7-10) #16 tabs Allergies Allergy/AdvReac Type Severity Reaction Status Date / Time codeine [Codeine] Allergy Intermediate ITCHING, Verified 08/15/23 23:00 VOMTING, THROAT SWELLS tramadol [TRAMADOL] Allergy Intermediate BODY Verified 08/15/23 23:00 SWELLING PMFSH Past Medical History Medical History Mood disorder History of osteomyelitis (~08/15/23) Cocaine use disorder Opioid use disorder Anemia Polysubstance (including opioids) dependence, daily use Drug abuse in remission Asthma Surgical History History of spinal fusion Family History Family History Other Opioid use disorder Social History Social History Household Members: None Household Members Other:: homeless Housing: Homeless Housing Other:: homeless Do you presently have visiting nurse or other home services: No Alcohol intake: never Patient Tobacco Use Status: Never used Tobacco Tobacco use type: Cigarette Cigarettes Per Day: 2 Use of substances other than those prescribed or required for medical reasons: Unknown Substance Use Type: Former Substance User Substance Use Frequency: Chronic Longstanding Advance Directives: Yes Advance Directives on File: Yes Advance Directives Date on File: 06/16/23 service: No Physical Exam ED Vital Signs: Vital Signs - 24 hr 08/27/23 22:24 08/28/23 00:52 Temperature 99.5 F 99.1 F Pulse Rate 99 95 Respiratory Rate 18 15 Blood Pressure 124/88 106/68 Pulse Oximetry 100 98 Oxygen Delivery Method Room Air Room Air BMI result Body Mass Index 18.8 Appearance: Alert. Oriented X3. No acute distress. Lethargic and sleepy Eyes: PERRLA, No Nystagmus ENT: Pharynx normal. Oral Mucosa moist Neck: Normal inspection. Neck supple. CVS: Normal heart rate and rhythm. Pulses normal. Respiratory: No respiratory distress. Equal air entry bilateral, no wheezing/rales/rhonchi Abdomen: Soft and nontender. Bowel sounds are present, no mass palpable, no CVA tenderness Skin: Skin warm and dry. Normal skin color. Normal skin turgor. Deep sacral wound with maggots as shown in the picture Extremities: No lower extremity edema. No calf tenderness paraparesis Neuro: Oriented X 3. Paraparesis Medications Administered Discontinued Medications Generic Name Dose Route Start Last Admin Trade Name Freq PRN Reason Stop Dose Admin Sodium Chloride 1,000 mls @ 999 mls/hr 08/27/23 22:05 08/28/23 04:25 Ns IV 08/27/23 23:05 Infused .Q1H1M ONE Infusion Piperacillin Sod/Tazobactam 50 mls @ 100 mls/hr 08/27/23 22:06 08/28/23 01:58 Sod 3.375 gm/ Sodium Chloride IV 08/27/23 22:35 Infused ONCE ONE Infusion Vancomycin HCl 1,250 mg/ 250 mls @ 166.667 mls/hr 08/27/23 22:30 08/28/23 01:58 Sodium Chloride IV 08/27/23 23:59 Infused ONCE ONE Infusion Potassium Chloride 10 meq in 100 mls @ 100 mls/hr 08/28/23 00:30 08/28/23 04:25 Potassium Chloride/H20 IV 08/28/23 02:29 Infused Q1H THEODORE Infusion Morphine Sulfate 4 mg 08/27/23 23:54 08/28/23 01:55 Morphine Sulfate 4 Mg/Ml Cartridge IVPUSH 08/27/23 23:55 Not Given ONCE ONE Protocol Procedures Central Line Placement Left IJ: Time Out Performed: Yes Patient Placed on Monitor/Pulse Ox: Yes MD Prep: mask, gown and gloves Central Line Prep: Chlorhexidine scrub Local Anesthetic: lidocaine 1% Amount of anesthesia used (mL): 2 Ultrasound Used for Placement: Yes Central Line Lumen Inserted: triple Post Procedure: sutured in place, good blood return, all ports aspirated, flushed, capped and sterile dressing applied Post Procedure X-Ray: tip of catheter in good position Patient Tolerated Procedure: well Complications: none Medical Decision Making Medical Decision Making [facility] Narrative: Patient with infected sacral decubitus with right ischeal osteomyelitis with UTI will admit patient for IV antibiotics Differential Diagnosis Differential Diagnoses: The differential diagnosis associated with the presentation includes Sacral osteomyelitis/bacteremia/sepsis/UTI Admission/Observation Consideration of admission/observation: Escalation of care including admission/observation considered Consult Healthcare Provider Management of the patient was discussed with: Hospitalist Lab Data MDM Lab Attestation statement: I reviewed the patient's lab results. 08/27/23 23:48 08/27/23 23:48 Labs: Lab Results 08/27/23 08/27/23 08/28/23 Range/Units 23:48 23:50 01:24 WBC 15.9 H (4.8-10.8) X10*3/uL RBC 3.37 L (4.20-5.50) X10*6/uL Hgb 7.8 L D (12.0-16.0) g/dl Hct 26.5 L D (37.0-47.0) % MCV 78.6 L (80.0-98.0) fL MCH 23.1 L (27.0-33.0) pg MCHC 29.4 L (31.0-35.0) g/dl RDW 17.0 H (11.0-16.0) % Plt Count 527 H D (160-400) X10*3/uL MPV 9.0 L (9.4-12.3) fL Immature Gran % (Auto) 1.1 H (0.0-0.4) % Neut % (Auto) 76.4 H (45-73) % Lymph % (Auto) 13.8 L (20-40) % [place] % (Auto) 5.8 (2-11) % Eos % (Auto) 2.5 (0-4) % Baso % (Auto) 0.4 (0-2) % Lymph # (Auto) 2.2 (1.2-4.9) X10*3/uL [place] # (Auto) 0.9 (0.1-1.2) X10*3/uL Eos # (Auto) 0.4 (0.0-0.4) X10*3/uL Baso # (Auto) 0.1 (0.0-0.2) X10*3/uL Abs Immat Gran (auto) 0.17 H (0.00-0.03) X10*3/uL Absolute Neuts (auto) 12.1 H (2.0-8.3) x10*3/uL Absolute Nucleated RBC 0.000 (0.0-0.012) X10*3/uL Nucleated RBC % (auto) 0.0 (0.0-0.2) /100WBC ESR 89 H (0-20) MM/HR Sodium 138 (135-145) mmol/L Potassium 2.6 L D (3.3-5.1) mmol/L Chloride 96 (96-108) mmol/L Carbon Dioxide 28 (22-29) mmol/L Anion Gap 17 (12-20) BUN 11 (9-16) mg/dL Creatinine 0.66 (0.5-1.4) mg/dL Estim Creat Clear Calc 81.6 Estimated GFR > 60 Random Glucose 110 (60-115) mg/dL Lactic Acid 1.0 (0.5-2.0) mmol/L Calcium 8.6 (8.4-10.2) mg/dL Magnesium 1.7 (1.6-2.6) mg/dL Total Bilirubin 0.3 (0.0-1.0) mg/dL AST 19 (5-31) U/L ALT 9 (0-31) U/L Alkaline Phosphatase 97 (39-117) U/L C-Reactive Protein 20.72 H (< or = 0.50) mg/dL Total Protein 6.7 (6.5-8.0) g/dL Albumin 2.6 L (3.5-5.0) g/dL Urine Color Yellow Urine Appearance Cloudy Urine pH 8.0 (5.0-9.0) Ur Specific [place] 1.015 (1.005-1.025) Urine Protein 30 (1+) H (Neg-Trace) mg/dL Urine Glucose (UA) Negative (Negative) mg/dL Urine Ketones Negative (Negative) mg/dL Urine Blood Small (1+) H (Negative) Urine Nitrite Negative (Negative) Ur Leukocyte Esterase Large (3+) H (Negative) Urine RBC 11-20 H (0-2) /HPF Urine WBC >50 H (0-5) /HPF Ur Squamous Epith Cells 0-2 (0-2) /HPF Urine Bacteria Trace (None Seen) Hyaline Casts 0-2 (0-2) /LPF COVID-19 (NEGRITO) Negative (Negative) COVID-19 Clin Com See Note Blood Type B Positive Antibody Screen NEGATIVE Crossmatch See Detail Crossmatch (AHG) See Detail Independent Interpretation I performed an independent interpretation of an: EKG Interpretation: Normal sinus rhythm heart rate 96 beats per minute LVH prolong QTC 560 milliseconds no acute STT wave changes no acute ischemia Critical Care Time Critical Care Time Critical Care Time: Yes Total Critical Care Time: 55 Attestation: The patient was critically ill with a high probability of imminent or life threatening deterioration. I spent greater than 60 minutes of discontinuous time evaluating the patient,delivering critical care at the bedside, discussing and evaluating pertinent data with consultants. Critical care time does not include time spent performing separately billable procedures or teaching. Total time spent performing critical care was 55 minutes. Discharge Plan Discharge Clinical Impression: Decubitus ulcer, Osteomyelitis, UTI (urinary tract infection), Acute hypokalemia, Anemia in chronic illness Patient Disposition: Admitted As Inpatient
--- NOTE | 2023-08-27 22:20 | PC.NURSE ---
pt changed into hospital attire, pt antoinette-care complete, pt had un-stageable wound to right buttucks, Dr. Powers into assess, maggets found in wound. colostomy bag and roberts bag drained. Photo taken by provider. Pt repositioned for comfort. Notified DON Howard.
[2023-08-27 22:24] VITALS: BP 124/88; PULSE 99; RESP 18; TEMP 37.5; O2SAT 100
[2023-08-27 23:15] VITALS: BMI 18.8
[2023-08-27] MEDS: Piperacillin Sodium/Tazobactam 3.375 GM in 0.9 % Sodium Chloride 50 ML IV (23:50)
[2023-08-27 23:56] LABS: Basophils Absolute Auto 0.1 X10*3/uL (0.0-0.2); Basophils Percent Auto 0.4 % (0-2); Eosinophils Absolute Auto 0.4 X10*3/uL (0.0-0.4); Eosinophils Percent Auto 2.5 % (0-4); Hematocrit 26.5 % (37.0-47.0); Hemoglobin 7.8 g/dl (12.0-16.0); Imm Gran Abs Auto 0.17 X10*3/uL (0.00-0.03); Imm Gran Pct Auto 1.1 % (0.0-0.4); Lymphocytes Absolute Auto 2.2 X10*3/uL (1.2-4.9); Lymphocytes Percent Auto 13.8 % (20-40); MANUAL DIFF FLAG NO; Mean Corpuscular HGB Conc 29.4 g/dl (31.0-35.0); Mean Corpuscular Hemoglobin 23.1 pg (27.0-33.0); Mean Corpuscular Volume 78.6 fL (80.0-98.0); Monocytes Absolute Auto 0.9 X10*3/uL (0.1-1.2); Monocytes Percent Auto 5.8 % (2-11); Neutrophils Absolute Auto 12.1 x10*3/uL (2.0-8.3); Neutrophils Percent Auto 76.4 % (45-73); Platelet Count 527 X10*3/uL (160-400); Red Blood Count 3.37 X10*6/uL (4.20-5.50); White Blood Count 15.9 X10*3/uL (4.8-10.8)
[2023-08-27 23:58] LABS: Appearance Urine Cloudy; Color Urine Yellow; Glucose Urine UA Negative (Negative); Leukocyte Esterase Urine Large (3+) (Negative); Nitrite Urine Negative (Negative); Specific Gravity - Urine 1.015 (1.005-1.025); UMIC TRIGGER UACC YES; Urine Blood Small (1+) (Negative); Urine Ketones Negative (Negative); Urine Protein 30 (1+) mg/dL (Neg-Trace)
[2023-08-28] VITALS (10 sets, daily range): BP systolic 104–126; BP diastolic 65–77; PULSE 66–95; RESP 15–20; TEMP 36.5–37.5; O2SAT 94–98; BMI 19.6
[2023-08-28 00:06] LABS: Bacteria Urine Trace (None Seen); Hyaline Casts Urine 0-2 /LPF (0-2); Squamous Epithelial Cell Urine 0-2 /HPF (0-2); UACC Culture Trigger YES; WBC Urine >50 /HPF (0-5)
[2023-08-28 00:10] LABS: COVID-19 Test Negative (Negative); IDNOW Serial# BCCEAD1C
[2023-08-28 00:11] LABS: Alanine Aminotransferase 9 U/L (0-31); Albumin Level 2.6 g/dL (3.5-5.0); Alkaline Phosphatase 97 U/L (39-117); Anion Gap 17 (12-20); Aspartate Amino Transferase 19 U/L (5-31); Bilirubin Total 0.3 mg/dL (0.0-1.0); Blood Urea Nitrogen 11 mg/dL (9-16); C Reactive Protein 20.72 mg/dL (< or = 0.50); Calcium 8.6 mg/dL (8.4-10.2); Carbon Dioxide 28 mmol/L (22-29); Chloride 96 mmol/L (96-108); Creatinine Clr Calc Pharmacy 81.6; Estimated Glomerular Filt Rate > 60; Glucose Random 110 mg/dL (60-115); Potassium 2.6 mmol/L (3.3-5.1); Sodium 138 mmol/L (135-145); Total Protein 6.7 g/dL (6.5-8.0)
[2023-08-28] MEDS: vancomycin HCL 1,250 MG in 0.9 % Sodium Chloride 250 ML 166.67 MG IV (00:24)
--- NOTE | 2023-08-28 00:28 | ECG_ITS ---
Test Reason : SEPSIS Blood Pressure : / mmHG Vent. Rate : 096 BPM Atrial Rate : 096 BPM P-R Int : 120 ms QRS Dur : 098 ms QT Int : 444 ms P-R-T Axes : 066 032 094 degrees QTc Int : 560 ms Normal sinus rhythm Possible Left atrial enlargement Left ventricular hypertrophy with repolarization abnormality ( Sokolow-Wilde , Romhilt-Mcnair ) Prolonged QT Abnormal ECG When compared with ECG of 28-JUL-2023 21:11, QT has lengthened Referred By: Jesse Vargas Electronically Signed By:RICCO HENDRICKSON
[2023-08-28 00:30] LABS: Erythrocyte Sedimentation Rate 89 MM/HR (0-20)
--- NOTE | 2023-08-28 00:30 | PM.IMHP ---
History of Present Illness Date of Service: 08/28/23 Chief Complaint: Infected wound 47yo homeless, wheelchair-bound F [paraplegic ] with hx polysubstance abuse, opioid use disorder on methadone, history of MRSA bacteremia, s/p colostomy, mood disorder, thoracic vertebral osteomyelitis s/p C5-T4 fusion and T1-T2 laminectomies 02/12/23, s/p colostomy in 4/ and infected decubitus ulcer who was just admitted here 08/07-08/15/23 for infected ischial decubitus ulcer/ ischial osteomyelitis. She was to be discharged with PICC line for 6 weeks of IV Vanco and to follow by 2 weeks of oral Doxycyline but left AMA. She returns here today with worsening of infectin decub ulcer with magot noted, also stated colostomy bag not changed in at least a week and chronic roberts with sediments. Potassium is 2.6, Hemoglobin is 7.8, baseline 8 to 10 Review of Systems Review of Systems: Gen: no fever Resp: no sob, no cough CV: no chest, no SOOD, no leg edema GI: No n/v, no abd pain Neuro: No confusion [facility] Medical History Mood disorder History of osteomyelitis (~08/15/23) Cocaine use disorder Opioid use disorder Anemia Polysubstance (including opioids) dependence, daily use Drug abuse in remission Asthma Family History Other Opioid use disorder Surgical History History of spinal fusion Social History Household Members: None Household Members Other:: homeless Housing: Homeless Housing Other:: homeless Do you presently have visiting nurse or other home services: No Alcohol intake: never Patient Tobacco Use Status: Never used Tobacco Tobacco use type: Cigarette Cigarettes Per Day: 2 Use of substances other than those prescribed or required for medical reasons: Unknown Substance Use Type: Former Substance User Substance Use Frequency: Chronic Longstanding Advance Directives: Yes Advance Directives on File: Yes Advance Directives Date on File: 06/16/23 service: No Meds Allergies Allergy/AdvReac Type Severity Reaction Status Date / Time codeine [Codeine] Allergy Intermediate ITCHING, Verified 08/15/23 23:00 VOMTING, THROAT SWELLS tramadol [TRAMADOL] Allergy Intermediate BODY Verified 08/15/23 23:00 SWELLING Active Medications: Current Medications Potassium Chloride (Potassium Chloride/H20) 10 meq in 100 mls @ 100 mls/hr IV Q1H THEODORE Stop: 08/28/23 02:29 Sodium Chloride (Ns) 100 mls @ 100 mls/hr IV ONCE ONE Stop: 08/28/23 01:25 Home Medications Medication Instructions Recorded Confirmed Last Taken Type methadone 10 mg/mL oral concentrate 80 mg PO DAILY 07/28/23 08/09/23 08/07/23 History Physical Exam Vital Signs and Narrative: Vital Signs: Last Vital Signs Temp 99.5 F 08/27/23 22:24 Pulse 99 08/27/23 22:24 Resp 18 08/27/23 22:24 BP 124/88 08/27/23 22:24 Pulse Ox 100 08/27/23 22:24 O2 Del Method Room Air 08/27/23 22:24 BMI result Body Mass Index 18.8 Const: Other: Constitutional: Alert, in no distress, overweight. Mental Status: Oriented to person, place and time. Eyes: Pupils are equal, round and reactive to light. Ear, Nose and Throat: Oropharynx clear, mucous membranes moist. Ears and nose without eformities. Trachea midline. Respiratory: Clear to auscultation. No wheezing, rales or rhonchi. Cardiovascular: S1 S2 regular. No murmurs, rubs or gallops. Gastrointestinal: Abdomen soft, non-tender, non-distended. Normal bowel sounds.? Neurologic: Cranial nerves II-XII grossly intact. No focal neurological deficits. Moves all extremities spontaneously.? Skin: Musculoskeletal: No cyanosis or clubbing. Psychiatric: Normal mood and affect? Results Labs 08/27/23 23:48 08/27/23 23:48 Labs: Laboratory Results - last 24 hr 08/27/23 08/27/23 23:48 23:50 MCV 78.6 L MCH 23.1 L MCHC 29.4 L RDW 17.0 H Plt Count 527 H D MPV 9.0 L Immature Gran % (Auto) 1.1 H Neut % (Auto) 76.4 H Lymph % (Auto) 13.[address] [place] % (Auto) 5.8 Eos % (Auto) 2.5 Baso % (Auto) 0.4 Lymph # (Auto) 2.2 [place] # (Auto) 0.9 Eos # (Auto) 0.4 Baso # (Auto) 0.1 Abs Immat Gran (auto) 0.17 H Absolute Neuts (auto) 12.1 H Absolute Nucleated RBC 0.000 Nucleated RBC % (auto) 0.0 Anion Gap 17 Estim Creat Clear Calc 81.6 Estimated GFR > 60 Random Glucose 110 Lactic Acid 1.0 Calcium 8.6 Total Bilirubin 0.3 AST 19 ALT 9 Alkaline Phosphatase 97 C-Reactive Protein 20.72 H Total Protein 6.7 Albumin 2.6 L Urine Color Yellow Urine Appearance Cloudy Urine pH 8.0 Ur Specific [place] 1.015 Urine Protein 30 (1+) H Urine Glucose (UA) Negative Urine Ketones Negative Urine Blood Small (1+) H Urine Nitrite Negative Ur Leukocyte Esterase Large (3+) H Urine RBC 11-20 H Urine WBC >50 H Ur Squamous Epith Cells 0-2 Urine Bacteria Trace Hyaline Casts 0-2 COVID-19 (NEGRITO) Negative COVID-19 Clin Com See Note Imaging Radiologist's Impressions: Impressions Chest X-Ray 08/28/23 00:05 IMPRESSION: Left approach central line terminates at the lower SVC/right atrial junction. There is no pneumothorax. Assessment and Plan (1) Sepsis: Status: Acute Plan 47yo homeless, wheelchair-bound F [paraplegic ] with hx polysubstance abuse, opioid use disorder on methadone, history of MRSA bacteremia, s/p colostomy, mood disorder, thoracic vertebral osteomyelitis s/p C5-T4 fusion and T1-T2 laminectomies 02/12/23, s/p colostomy in 4/ and infected decubitus ulcer who was just admitted here 08/07-08/15/23 for infected ischial decubitus ulcer/ ischial osteomyelitis. She was to be discharged with PICC line for 6 weeks of IV Vanco and to follow by 2 weeks of oral Doxycyline but left AMA. She returns here today with worsening of infectin decub ulcer with magot noted, also stated colostomy bag not changed in at least a week and chronic roberts with sediments. Potassium is 2.6, Hemoglobin is 7.8, baseline 8 to 10 Sepsis Infected sacral decubitus ulcer Ischial osteomyelitis - Prior to recent AMA, ID recommended IV vanco x 6wk then PO doxy x 2mo, weekly CRP/ESR/Cr/vanco trough Start IV Vanco while here, and avoid putting PICC line until it is certain she would go to a facility to get IV Abx - Wound Care consulted, Surgery consult for debridement - wet-dry saline-soaked gauze daily - pain control with APAP, IV morphine Microcytic anemia, chronic -oral iron replacment, transfuse if Hgb < 7 HypoKalemia--has central line - replete with IV and recheck -check mag Tobacco abuse - NRT Opioid use dosorder (OUD) - methadone once verified -addiction med consult homelessness - CM consult FEN/moderate protein calory malnutrion - nutritional supplementation to promote wound healing VTE ppx -heparin, monitor h/H admission for at least 2 midnights for IV Abx for sepsis, osteomylitis Time Spent With Patient Time: Total time managing care of this patient today ____ minutes. Quality Stroke Does the patient have a stroke diagnosis?: No VTE Prior VTE?: No VTE Risk Level:: Medical - moderate - high VTE Device Contraindication: Treatment Not Indicated VTE Drug Contraindication: N/A - Med Ordered
--- NOTE | 2023-08-28 00:52 | PC.NURSE ---
Pt homeless w/ copious amounts of dirt and grime on person. Pt cleaned and changed into gown. Colostomy bag replaced. roberts catheter changed and urine sent to lab. Central line inserted for med administration due to extensive drug use hx resulting in poor peripheral IV access.
[2023-08-28] MEDS: Potassium Chloride/H20 10 MEQ/100 ML PIGGYBACK 100 MEQ IV ×2 (01:53→03:16)
[2023-08-28] MEDS: 0.9 % Sodium Chloride 1,000 ML 999 ML IV (01:53)
[2023-08-28 02:05] LABS: Magnesium 1.7 mg/dL (1.6-2.6)
--- NOTE | 2023-08-28 08:05 | PHA.PROG ---
Admission Date/Time: August 28, 2023 01:40 Indication: BONE Weight in k.7 kg Adjusted body weight in Kg: [place] body weight in Kg: Obesity Dosing Indication % IBW: Serum Creatinine - Last 168 Hours 08/27/23 23:48 Creatinine 0.66 Estimated CrCl and GFR - Last 168 Hours 08/27/23 23:48 Estim Creat Clear Calc 81.6 Estimated GFR > 60 Vancomycin Loading Dose: 1250 MG Current Vancomycin Dosing Regimen: [id number] Vancomycin Monitoring using AUC goal of 400 - 600 range with trough as surrogate marker: AUC 451, TROUGH 13.4 Date and Time for next Vancomycin Level to be drawn: 08/29 @0900 Pharmacist Comments on Vancomycin Plan: Vancomycin dosing will take advantage of [place] [employer] as a clinical decision support tool that uses Bayesian modeling to calculate individual patient's pharmacokinetic parameters and forecast the patient's drug concentration time course with the target goal AUC 24 range of 400 - 600 mg/L/hr.
--- NOTE | 2023-08-28 08:07 | PHA.MEDREC ---
Pharmacy Consult ? Medication Reconciliation Pharmacy has completed the medication reconciliation. Patient was recently discharged 08/15
--- NOTE | 2023-08-28 08:37 | MHC.CM.PN ---
08/28/23 08:34 - Case Mgmt Progress Note by Mirna Colin Acct Num: [id number] : 1975 Patient Age: 47 Patient is homeless and recently left AMA. Patient is w/c bound, has an infected Ulcer with Maggots noted, and a colostomy. Patient receives her Methadone from [facility] in [place]. DC plan is TBD; CM will follow. Initialized on 08/28/23 08:34 - END OF NOTE
[2023-08-28 09:36] LABS: Anion Gap 12 (12-20); Blood Urea Nitrogen 5 mg/dL (9-16); Calcium 8.1 mg/dL (8.4-10.2); Carbon Dioxide 28 mmol/L (22-29); Chloride 103 mmol/L (96-108); Estimated Glomerular Filt Rate > 60; Glucose Random 84 mg/dL (60-115); Potassium 2.8 mmol/L (3.3-5.1); Sodium 140 mmol/L (135-145)
[2023-08-28] MEDS: Morphine Sulfate 4 MG/ML CARTRIDGE 2 MG IVPUSH (11:06)
--- NOTE | 2023-08-28 11:06 | P.CONGS_ITS ---
History of Present Illness Consult details Consult date: 08/28/23 <SOLOMON Crum Last Filed: 08/28/23 12:38> Reason for consult: wound care <SOLOMON Crum Last Filed: 08/28/23 12:38> Requesting physician: Gildardo Powers <SOLOMON Crum Last Filed: 08/28/23 12:38> Narrative: 47 year old female with hx polysubstance abuse, opioid use disorder on methadone, mood disorder, history of thoracic vertebral osteomyelitis requiring C5-T4 fusion and T1-T2 laminectomies who is homeless and wheelchair-bound. She was recently admitted to [facility] in July 2023 for necrotic right ischial decubitus ulcer requiring debridement in OR and diverting colostomy. She was found to have osteomyelitis at that time. Plan was for her to be discharged to [facility] with wound vac to ischial ulcer and PICC line for 6 weeks of IV Vanco followed by 2 weeks of oral Doxycyline however she left AMA. She returns today with worsening decubitus ulcer with maggot noted in ED. She was admitted to the hospitalist service and started on IV vancomycin for treatment of sepsis, ischial osteomyelitis and infected decubitus ulcer. General surgery was consulted for further wound care, possible debridement. <SOLOMON Crum Last Filed: 08/28/23 12:38> Review of Systems 2 Constitutional: Constitutional: Denies fever(s) <SOLOMON Crum Last Filed: 08/28/23 12:38> Cardiovascular: Cardiovascular: Denies chest pain and Denies dyspnea < SOLOMON Crum Last Filed: 08/28/23 12:38> Respiratory: Respiratory: Denies dyspnea <SOLOMON Crum Last Filed: 08/28/23 12:38> Gastrointestinal: Gastrointestinal: Denies abdominal pain and Denies nausea <SOLOMON Crum Last Filed: 08/28/23 12:38> Integumentary/Breasts: Skin/Breast: Reports as per HPI and Denies rash < SOLOMON Crum Last Filed: 08/28/23 12:38> PMFSH Past Medical History Medical History: Medical History (Updated 08/28/23 @ 12:36 by Agnes Saleem PA-C) Mood disorder History of osteomyelitis (~08/15/23) Cocaine use disorder Opioid use disorder Anemia Polysubstance (including opioids) dependence, daily use Drug abuse in remission Asthma <Agnes Saleem PA-C - Last Filed: 08/28/23 12:38> Family History Family History: Family History Other Opioid use disorder <Agnes Saleem PA-C - Last Filed: 08/28/23 12:38> Surgical History Surgical History: Surgical History (Updated 08/28/23 @ 12:36 by Agnes Saleem PA-C) Colostomy in place History of spinal fusion <Agnes Saleem PA-C - Last Filed: 08/28/23 12:38> Social History Social History: Social History Household Members: Other Household Members Other:: homeless Housing: Homeless Housing Other:: homeless Do you presently have visiting nurse or other home services: No Unable to assess alcohol history related to: Unknown Alcohol intake: never Patient Tobacco Use Status: Former Tobacco user Tobacco use type: Cigarette Cigarettes Per Day: 2 Use of substances other than those prescribed or required for medical reasons: No Substance Use Type: Former Substance User Substance Use Frequency: Chronic Longstanding Currently Displaying Signs/Symptoms of Drug Intoxication Withdrawal: No Have you been hit, kicked, punched, or otherwise hurt by someone within the past year? If so, by whom?: No Do you feel safe in your current relationship?: Yes Is there a partner from a previous relationship who is making you feel unsafe now?: No Are you made to feel afraid or neglected: No Advance Directives: Yes Advance Directives on File: Yes Advance Directives Date on File: 06/16/23 Do you have thoughts of harming others: None Do you have a plan to hurt others: No Plan Recently lost weight without trying: No Nutrition Risks: No Nutritional Risk Patient : No : No Poor oral hygiene: No service: No <SOLOMON Crum Last Filed: 08/28/23 12:38> Meds Allergies/Adverse reactions: Allergies Allergy/AdvReac Type Severity Reaction Status Date / Time codeine [Codeine] Allergy Intermediate ITCHING, Verified 08/15/23 23:00 VOMTING, THROAT SWELLS tramadol [TRAMADOL] Allergy Intermediate BODY Verified 08/15/23 23:00 SWELLING <SOLOMON Crum Last Filed: 08/28/23 12:38> Active Medications: Current Medications Acetaminophen (Acetaminophen 325 Mg Tablet) 650 mg PO Q6H PRN PRN Reason: Pain, Mild (Pain Scale 1-3) Heparin Sodium (Porcine) (Heparin Sodium,Porcine 5,000 Unit/Ml Vial) 5,000 unit SUBCUT Q12H [facility] Last Admin: 08/28/23 08:49 Dose: 5,000 unit Vancomycin HCl 750 mg/ Sodium (Chloride) 250 mls @ 166.667 mls/hr IV Q12H [facility] Melatonin (Melatonin 3 Mg Tablet) 6 mg PO BEDTIME PRN PRN Reason: Insomnia Morphine Sulfate (Morphine Sulfate 4 Mg/Ml Cartridge) 2 mg IVPUSH Q6H PRN; Protocol PRN Reason: Pain, Severe (Pain Scale 7-10) Nicotine (Nicotine 21 Mg Patch.Td24) 21 mg TRANSDERMA DAILY [facility] Last Admin: 08/28/23 08:52 Dose: Not Given Pharmacy Consult (Consult Rx Vancomycin Dosing) 1 each MISCELLANE DAILY PRN PRN Reason: Consult order Sodium Chloride (0.9 % Sodium Chloride Flush 3 Ml Syringe) 3 ml IVFLUSH QSHIFT [facility] Last Admin: 08/28/23 08:49 Dose: 3 ml <SOLOMON Crum Last Filed: 08/28/23 12:38> Home medications: Home Medications Medication Instructions Recorded Confirmed Last Taken Type methadone 10 mg/mL oral concentrate 80 mg PO DAILY 07/28/23 08/09/23 08/07/23 History <SOLOMON Crum Last Filed: 08/28/23 12:38> Physical Exam 2 Vital Signs: Vital Signs: Last Vital Signs Temp 99.3 F 08/28/23 07:58 Pulse 78 08/28/23 07:58 Resp 18 08/28/23 07:58 BP 122/74 08/28/23 07:58 Pulse Ox 96 08/28/23 07:58 O2 Del Method Room Air 08/28/23 07:58 BMI result Body Mass Index 19.6 <SOLOMON Crum Last Filed: 08/28/23 12:38> Const: General: comfortable and alert <SOLOMON Crum Last Filed: 08/28/23 12:38> Nutritional Appearance: thin <SOLOMON Crum Last Filed: 08/28/23 12:38> Orientation/consciousness: patient oriented x3 <SOLOMON Crum Last Filed: 08/28/23 12:38> GI: Other: ostomy pink <SOLOMON Crum Last Filed: 08/28/23 12:38> Inspection: No distended <SOLOMON Crum Last Filed: 08/28/23 12:38> Palpation (GI): Soft to palpation and nontender <SOLOMON Crum Last Filed: 08/28/23 12:38> Skin: Other: right ischial decubitus ulcer overall clean and granulating, lateral aspect of wound with large eschar; significant surrounding pressure injury and maceration of left buttock <SOLOMON Crum Last Filed: 08/28/23 12:38> Neuro: General: patient oriented x3 <SOLOMON Crum Last Filed: 08/28/23 12:38> Results Labs Result diagrams: 08/29/23 07:00 08/29/23 07:00 <SOLOMON Crum Last Filed: 08/28/23 12:38> Labs: Abnormal lab results 08/27/23 08/28/23 08/28/23 Range/Units 23:48 01:24 09:11 WBC 15.9 H (4.8-10.8) X10*3/uL RBC 3.37 L (4.20-5.50) X10*6/uL Hgb 7.8 L D (12.0-16.0) g/dl Hct 26.5 L D (37.0-47.0) % MCV 78.6 L (80.0-98.0) fL MCH 23.1 L (27.0-33.0) pg MCHC 29.4 L (31.0-35.0) g/dl RDW 17.0 H (11.0-16.0) % Plt Count 527 H D (160-400) X10*3/uL MPV 9.0 L (9.4-12.3) fL Immature Gran % (Auto) 1.1 H (0.0-0.4) % Neut % (Auto) 76.4 H (45-73) % Lymph % (Auto) 13.8 L (20-40) % Abs Immat Gran (auto) 0.17 H (0.00-0.03) X10*3/uL Absolute Neuts (auto) 12.1 H (2.0-8.3) x10*3/uL ESR 89 H (0-20) MM/HR Potassium 2.6 L D 2.8 L (3.3-5.1) mmol/L BUN 5 L (9-16) mg/dL Calcium 8.1 L (8.4-10.2) mg/dL C-Reactive Protein 20.72 H (< or = 0.50) mg/dL Albumin 2.6 L (3.5-5.0) g/dL Urine Protein 30 (1+) H (Neg-Trace) mg/dL Urine Blood Small (1+) H (Negative) Ur Leukocyte Esterase Large (3+) H (Negative) Urine RBC 11-20 H (0-2) /HPF Urine WBC >50 H (0-5) /HPF Crossmatch See Detail Crossmatch (AHG) See Detail Short CBC 08/27/23 Range/Units 23:48 WBC 15.9 H (4.8-10.8) X10*3/uL Hgb 7.8 L D (12.0-16.0) g/dl Hct 26.5 L D (37.0-47.0) % Plt Count 527 H D (160-400) X10*3/uL BMP 08/27/23 08/28/23 23:48 09:11 Sodium 138 140 Potassium 2.6 L D 2.8 L Chloride 96 103 Carbon Dioxide 28 28 BUN 11 5 L Creatinine 0.66 0.52 Calcium 8.6 8.1 L Liver Function 08/27/23 Range/Units 23:48 Total Bilirubin 0.3 (0.0-1.0) mg/dL AST 19 (5-31) U/L ALT 9 (0-31) U/L Alkaline Phosphatase 97 (39-117) U/L Albumin 2.6 L (3.5-5.0) g/dL Urine 08/27/23 Range/Units 23:48 Urine Color Yellow Urine Appearance Cloudy Urine pH 8.0 (5.0-9.0) Ur Specific Marlin 1.015 (1.005-1.025) Urine Protein 30 (1+) H (Neg-Trace) mg/dL Urine Glucose (UA) Negative (Negative) mg/dL All other labs normal. <Agnes Saleem PA-C Last Filed: 08/28/23 12:38> Assessment and Plan (1) Osteomyelitis: Qualifiers: Osteomyelitis location: other site Osteomyelitis type: o ther acute Qualified Code(s): M86.18 - Other acute osteomyelitis, other site < SOLOMON Crum Last Filed: 08/28/23 12:38> Status: Acute <SOLOMON Crum Last Filed: 08/28/23 12:38> (2) Decubitus ulcer: Qualifiers: Pressure injury location: other site Pressure injury stage: stage 4 Qualified Code(s): L89.894 - Pressure ulcer of other site, stage 4 < Agnes Saleem PA-C Last Filed: 08/28/23 12:38> Status: Acute <SOLOMON Crum Last Filed: 08/28/23 12:38> Patient well known to me Now back because worsening this ulcers Exam shows a right ischial tuberosity ulcer, about 5 x 5 cm, with moist eschar Ulcer on the right buttock clean with good granulation I proceeded to do sharp excisional debridement of the eschar of the right ischial tuberosity ulcer This was done at bedside using scissors I removed thick eschar consisting of skin and subcutaneous layer I applied wet to dry dressings Plan to re-examine the wound tomorrow and apply Dakin solution dressings Abdomen soft and benign Stoma functioning Seen and examined independently <Stephen Bishop MD - Last Filed: 08/29/23 11:34> 47 year old female with multiple medical comorbidities including 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 She is on IV vancomycin. Overall the right ischial ulcer is clean appearing with an eschar of the lateral edge which was debrided by Dr. Bishop at bedside today. Wound care recommending Dakins dressings. Continue dressing changes daily with Dakins and as needed. She needs good wound care, frequent repositioning, and nutritional support to prevent worsening and promote healing. Discussed with patient. < Agnes Saleem PA-C - Last Filed: 08/28/23 12:38> Time Spent With Patient Time: Total time managing care of this patient today ____ minutes. <Agnes Saleem PA-C - Last Filed: 08/28/23 12:38> Procedures Date of Service Date of Service: 08/28/23 <Agnes Saleem PA-C - Last Filed: 08/28/23 12:38> 08/29/23 <Stephen Bishop MD - Last Filed: 08/29/23 11:34>
[2023-08-28] MEDS: Acetaminophen 325 MG TABLET 650 MG PO (11:41)
--- NOTE | 2023-08-28 12:47 | MHC.RECOVRN ---
Spoke with Heather at [facility], pt last received methadone on 08/27/23, 80 mg. Shanelle Miller APRN, aware.
--- NOTE | 2023-08-28 16:04 | PM.EVENT ---
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 47 year old female with multiple medical comorbidities including 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 She is on IV vancomycin. Sepsis Infected sacral decubitus ulcer/Ischial osteomyelitis - continue IV vancomycin for total 2 weeks followed by 2 weeks of by mouth doxycycline Seen by General surgery Overall the right ischial ulcer is clean appearing with an eschar of the lateral edge which was debrided by Dr. Bishop at bedside today. Wound care recommending Dakins dressings. Continue dressing changes daily with Dakins and as needed. Continue frequent repositioning, and nutritional support to prevent worsening and promote healing. Will continue IV morphine change dose to 4 mg q.4 hours and at oxycodone 5 mg as needed Microcytic anemia, chronic Will place on iron supplements 325 b.i.d. with vitamin-C transfuse if Hgb < 7 HypoKalemia-potassium remains low, replace and follow labs Tobacco abuse continue nicotine patch Opioid use dosorder (OUD) continue methadone homelessness CM consult FEN/moderate protein calory malnutrion nutritional supplementation to promote wound healing Time Spent With Patient Time: Total time managing care of this patient today ____ minutes.
[2023-08-29 04:00] VITALS: BP 142/86; PULSE 69; RESP 18; TEMP 36.2; O2SAT 92
[2023-08-29 07:32] LABS: Anion Gap 16 (12-20); Blood Urea Nitrogen 4 mg/dL (9-16); Calcium 8.4 mg/dL (8.4-10.2); Carbon Dioxide 27 mmol/L (22-29); Chloride 104 mmol/L (96-108); Estimated Glomerular Filt Rate > 60; Glucose Random 76 mg/dL (60-115); Potassium 2.9 mmol/L (3.3-5.1); Sodium 144 mmol/L (135-145)
[2023-08-29 07:33] VITALS: BP 118/65; PULSE 62; RESP 16; TEMP 36.6; O2SAT 94
[2023-08-29] MEDS: Nicotine 21 MG PATCH.TD24 TRANSDERMA (07:47)
--- NOTE | 2023-08-29 10:03 | HE.PHANOTE ---
VANCO DOSE ADJUSTMENT BASED ON SCR AND TROUGH OF 14.4THE DOSE WAS CONTINUED AT 750 Q 12. NEXT LEVEL AT 10 @ 1900
--- NOTE | 2023-08-29 11:31 | PM.PNGS ---
Subjective Subjective Date of Service: 08/29/23 Interval history: No events reported Patient apparently has been threatening to leave [place] again Physical Exam Vital Signs: Vital Signs: Last Vital Signs Temp 97.9 F 08/29/23 07:33 Pulse 62 08/29/23 07:33 Resp 16 08/29/23 07:33 BP 118/65 08/29/23 07:33 Pulse Ox 94 08/29/23 07:33 O2 Del Method Room Air 08/29/23 07:33 BMI result Body Mass Index 19.6 Const: Other: Drowsy General: no acute distress Cardio: Rate: regular rate GI: Other: Colostomy with good output Palpation (GI): Soft to palpation Back/Spine/Pelvis: Other: Ulcer on the right ischial superior as the area some residual fibrinous debris, otherwise clean Right buttock ulcer also clean with good granulation, no pus, no cellulitis Objective Data Active Medications Acetaminophen (Acetaminophen 325 Mg Tablet) 650 mg PO Q6H PRN PRN Reason: Pain, Mild (Pain Scale 1-3) Last Admin: 08/28/23 11:41 Dose: 650 mg Documented By: TERA Ascorbic Acid (Ascorbic Acid 250 Mg Tablet) 250 mg PO BID [facility] Last Admin: 08/29/23 07:55 Dose: Not Given Documented By: JENNIFER Non-Admin Reason: Patient Refused Docusate Sodium (Docusate Sodium 100 Mg Capsule) 100 mg PO BID [facility] Last Admin: 08/29/23 07:54 Dose: Not Given Documented By: JENNIFER Non-Admin Reason: Patient Refused Ferrous Sulfate (Ferrous Sulfate 324 Mg Tablet.) [facility] Last Admin: 08/29/23 07:55 Dose: Not Given Documented By: JENNIFER Non-Admin Reason: Patient Refused Heparin Sodium (Porcine) (Heparin Sodium,Porcine 5,000 Unit/Ml Vial) 5,000 unit SUBCUT Q12H [facility] Last Admin: 08/29/23 05:35 Dose: Not Given Documented By: DONNA Non-Admin Reason: Patient Refused Vancomycin HCl 750 mg/ Sodium (Chloride) 265 mls @ 265 mls/hr IV Q12H [facility] Last Infusion: 08/28/23 23:35 Dose: Infused Documented By: DONNA Melatonin (Melatonin 3 Mg Tablet) 6 mg PO BEDTIME PRN PRN Reason: Insomnia Methadone HCl (Methadone Hcl 20 Mg/2 Ml Oral.Conc) 80 mg PO DAILY [facility] Last Admin: 08/29/23 07:48 Dose: 80 mg Documented By: JENNIFER Morphine Sulfate (Morphine Sulfate 4 Mg/Ml Cartridge) 4 mg IVPUSH Q4H PRN; Protocol PRN Reason: Pain, Severe (Pain Scale 7-10) Last Admin: 08/29/23 07:48 Dose: 4 mg Documented By: JENNIFER Multivitamins/Vitamin C (Multivitamin Tablet) 1 tab PO DAILY [facility] Last Admin: 08/29/23 07:54 Dose: Not Given Documented By: JENNIFER Non-Admin Reason: Patient Refused Nicotine (Nicotine 21 Mg Patch.Td24) 21 mg TRANSDERMA DAILY [facility] Last Admin: 08/29/23 07:47 Dose: 21 mg Documented By: JENNIFER Oxycodone HCl (Oxycodone Hcl Immed Release 5 Mg Tablet) 5 mg PO Q6H PRN PRN Reason: Pain, Moderate(Pain Scale 4-6) Pharmacy Consult (Consult Rx Vancomycin Dosing) 1 each MISCELLANE DAILY PRN PRN Reason: Consult order Sodium Chloride (0.9 % Sodium Chloride Flush 3 Ml Syringe) 3 ml IVFLUSH QSHIFT [facility] Last Admin: 08/29/23 07:48 Dose: 3 ml Documented By: JENNIFER Sodium Hypochlorite (Sodium Hypochlorite 0.125% 473 Ml Solution) 1 appl TOPICAL DAILY [facility] Labs 08/29/23 07:00 08/29/23 07:00 Labs: Laboratory Results - last 24 hr 08/29/23 08/29/23 07:00 09:10 MCV 80.6 MCH 25.0 L MCHC 31.0 RDW 18.6 H Plt Count 507 H MPV 9.3 L Absolute Nucleated RBC 0.000 Nucleated RBC % (auto) 0.0 Anion Gap 16 Estim Creat Clear Calc 108.0 Estimated GFR > 60 Random Glucose 76 Calcium 8.4 Random Vancomycin 14.4 L Microbiology Microbiology Results: Microbiology 08/27/23 23:54 Blood Culture - Preliminary Blood - Venous No growth after 24 hours. 08/27/23 23:54 Blood Culture - Preliminary Blood - Venous No growth after 24 hours. Procedures Date of Service Date of Service: 08/29/23 Progress Note: A&P Assessment and plan (1) Decubitus ulcer: Status: Acute Assessment and Plan: I proceeded to do more sharp excisional debridement of the ulcer on the right ischial tuberosity with Mohr scissors I applied wet to dry dressings on both the ischial tuberosity and buttock areas - Dakin's solution not ready yet Continue the same wound care daily - use Dakin's if available Position changes every 2 hours for bedsore precautions Time Spent With Patient Time: Total time managing care of this patient today ____ minutes. Quality Stroke Does the patient have a stroke diagnosis?: No VTE Prior VTE?: No VTE Risk Level:: Medical - moderate - high VTE Device Contraindication: Treatment Not Indicated VTE Drug Contraindication: N/A - Med Ordered
[2023-08-29 11:32] VITALS: BMI 20.8
--- NOTE | 2023-08-29 11:37 | MHC.CLN ---
PT IS MODERATELY MALNOURISHED PT WITH MILDLY DEPLETED SUBCUTANEOUS FAT AND MUSCLE MASS WITH INCREASED NUTRITION RISK R/T PRESSURE INJURY AND POOR ACCESS TO NUTRITION R/T DRUG ABUSE AND HOMELESSNESS DIET RX: REGULAR-APPROPRIATE RECOMMEND ADDING ENSURE MAX BID TO PROMOTE WOUND HEALING SUPP TO PROVIDE 300KCALS, 60G PROTEIN MONITOR PO INTAKE CLOSELY SEE ALSO FULL CLINICAL NUTRITION ASSESSMENT
[2023-08-29 11:39] VITALS: BP 113/73; PULSE 66; RESP 16; TEMP 36.2; O2SAT 96
--- NOTE | 2023-08-29 11:47 | MHC.CM.PN ---
PER MD ROUNDS, PT IS NOT MEDICALLY CLEARED AT THIS TIME DCP TO BE DETERMINED PENDING PTS TREATMENT NEEDS PT HAS BEEN INPATIENT TWICE IN THE LAST MONTH + (07/26/23-07/30/23 AND 08/07/23-08/15/23) THE DC PLAN FOR PREVIOUS ADMISSION WAS SNF PLACEMENT FOR IV ABX AND WOUND CARE PT LEFT AMA BOTH ADMISSIONS REFERRAL PLACED TO [facility] IN EXPECTATION OF PT NEEDING IV ABX AGAIN
--- NOTE | 2023-08-29 12:36 | HO.PM.IMPN ---
Subjective Subjective Date of Service: 08/29/23 Interval History: Resting comfortably in bed offers no acute complaints, took all morning medications, decreased by mouth intake no nausea, no vomiting, offers no acute complaints, no acute events overnight. Review of Systems All other system reviewed and negative Physical Exam Vital Signs: Vital Signs: Last Vital Signs Temp 97.1 F 08/29/23 11:39 Pulse 66 08/29/23 11:39 Resp 16 08/29/23 11:39 BP 113/73 08/29/23 11:39 Pulse Ox 96 08/29/23 11:39 O2 Del Method Room Air 08/29/23 11:39 BMI result Body Mass Index 20.8 Const: Other: Gen: Somnolent easily arousable, resting in bed in no acute distress Neck: supple Lungs: clear to auscultation bilaterally Heart: regular rate and rhythm, no murmurs Abd: soft, colostomy with good output Ext: no edema, contraction deformity both knees Skin: large right ischial decubitus ulcer , some residual fibrin is depressed otherwise clean, no drainage, right buttock ulcer clean with good granulation no surrounding redness Neuro: paraplegia, speech clear Psych: appropriate affect Objective Data Active Medications Acetaminophen (Acetaminophen 325 Mg Tablet) 650 mg PO Q6H PRN PRN Reason: Pain, Mild (Pain Scale 1-3) Last Admin: 08/28/23 11:41 Dose: 650 mg Documented By: TERA Ascorbic Acid (Ascorbic Acid 250 Mg Tablet) 250 mg PO BID [facility] Last Admin: 08/29/23 07:55 Dose: Not Given Documented By: JENNIFER Non-Admin Reason: Patient Refused Docusate Sodium (Docusate Sodium 100 Mg Capsule) 100 mg PO BID [facility] Last Admin: 08/29/23 07:54 Dose: Not Given Documented By: JENNIFER Non-Admin Reason: Patient Refused Ferrous Sulfate (Ferrous Sulfate 324 Mg Tablet.) 324 mg PO BIDWM [facility] Last Admin: 08/29/23 07:55 Dose: Not Given Documented By: JENNIFER Non-Admin Reason: Patient Refused Heparin Sodium (Porcine) (Heparin Sodium,Porcine 5,000 Unit/Ml Vial) 5,000 unit SUBCUT Q12H [facility] Last Admin: 08/29/23 05:35 Dose: Not Given Documented By: DONNA Non-Admin Reason: Patient Refused Vancomycin HCl 750 mg/ Sodium (Chloride) 265 mls @ 265 mls/hr IV Q12H [facility] Last Admin: 08/29/23 11:42 Dose: 260 mls/hr Documented By: JENNIFER Melatonin (Melatonin 3 Mg Tablet) 6 mg PO BEDTIME PRN PRN Reason: Insomnia Methadone HCl (Methadone Hcl 20 Mg/2 Ml Oral.Conc) 80 mg PO DAILY [facility] Last Admin: 08/29/23 07:48 Dose: 80 mg Documented By: JENNIFER Morphine Sulfate (Morphine Sulfate 4 Mg/Ml Cartridge) 4 mg IVPUSH Q4H PRN; Protocol PRN Reason: Pain, Severe (Pain Scale 7-10) Last Admin: 08/29/23 12:01 Dose: 4 mg Documented By: JENNIFER Multivitamins/Vitamin C (Multivitamin Tablet) 1 tab PO DAILY [facility] Last Admin: 08/29/23 07:54 Dose: Not Given Documented By: JENNIFER Non-Admin Reason: Patient Refused Nicotine (Nicotine 21 Mg Patch.Td24) 21 mg TRANSDERMA DAILY [facility] Last Admin: 08/29/23 07:47 Dose: 21 mg Documented By: JENNIFER Oxycodone HCl (Oxycodone Hcl Immed Release 5 Mg Tablet) 5 mg PO Q6H PRN PRN Reason: Pain, Moderate(Pain Scale 4-6) Pharmacy Consult (Consult Rx Vancomycin Dosing) 1 each MISCELLANE DAILY PRN PRN Reason: Consult order Sodium Chloride (0.9 % Sodium Chloride Flush 3 Ml Syringe) 3 ml IVFLUSH QSHIFT [facility] Last Admin: 08/29/23 07:48 Dose: 3 ml Documented By: JENNIFER Sodium Hypochlorite (Sodium Hypochlorite 0.125% 473 Ml Solution) 1 appl TOPICAL DAILY [facility] Last Admin: 08/29/23 11:36 Dose: Not Given Documented By: JENNIFER Non-Admin Reason: Med Not Available Labs 08/29/23 07:00 08/29/23 07:00 Labs: Laboratory Results - last 24 hr 08/29/23 08/29/23 07:00 09:10 MCV 80.6 MCH 25.0 L MCHC 31.0 RDW 18.6 H Plt Count 507 H MPV 9.3 L Absolute Nucleated RBC 0.000 Nucleated RBC % (auto) 0.0 Anion Gap 16 Estim Creat Clear Calc 108.0 Estimated GFR > 60 Random Glucose 76 Calcium 8.4 Random Vancomycin 14.4 L Microbiology Microbiology Results: Microbiology 08/27/23 23:54 Blood Culture - Preliminary Blood - Venous No growth after 24 hours. 08/27/23 23:54 Blood Culture - Preliminary Blood - Venous No growth after 24 hours. Assessment and Plan (1) Anemia in chronic illness: Status: Acute (2) Acute hypokalemia: Status: Acute (3) History of osteomyelitis: Status: Acute Plan 47 year old female with multiple medical comorbidities including 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 She is on IV vancomycin. Sepsis Infected rt ischial decubitus ulcer/Ischial osteomyelitis continue IV vancomycin has been receiving interrupted antibiotics due to leaving AMA started on vanco 08/07 , Last dose of IV vanco on 08/15, return on 08/28 Initial plan was for IV vancomycin for 6 weeks, recommended on 08/08 by ID, followed by 2 weeks of by mouth doxycycline Seen by General surgery right ischial ulcer clean appearing with an eschar of the lateral edge which was debrided by Dr. Bishop at bedside on 08/28 and 08/29 Continue dressing changes daily with Dakins and as needed. Continue frequent repositioning, and nutritional support to prevent worsening and promote healing. Will continue IV morphine 4 mg q.4 hours and oxycodone 5 mg as needed Patient is homeless, recently left hospital against medical advice will hold off on PICC line placement. Underwent diverting colostomy placement during last hospitalization due to fecal incontinence and contamination of decubiti ulcer Braun catheter for skin integrity Microcytic anemia, chronic on iron supplements 325 b.i.d. with vitamin-C , hematocrit stable 28.7, transfuse if Hgb < 7 HypoKalemia-potassium remains low, replace and follow labs Tobacco abuse continue nicotine patch Opioid use dosorder (OUD) continue methadone moderate protein calorie malnutrion nutritional supplementation to promote wound healing as per security program manager Patient need continued inpatient hospitalization for need for IV antibiotic and further management of infected decubiti ulcer Time Spent With Patient Time: Total time managing care of this patient today ____ minutes. Quality Stroke Does the patient have a stroke diagnosis?: No VTE Prior VTE?: No VTE Risk Level:: Medical - moderate - high VTE Device Contraindication: Treatment Not Indicated VTE Drug Contraindication: N/A - Med Ordered
--- NOTE | 2023-08-29 13:51 | MHC.RECOVRN ---
Attempted to meet with pt in 457 after consult placed to Addiction Medicine. Pt laying in bed, asleep, briefly wakes to voice. Appears comfortable. Pt only stays awake for a second, unable to engage in conversation. T/w available if needed.
[2023-08-29 15:30] VITALS: BP 126/78; PULSE 55; RESP 20; TEMP 36.2; O2SAT 94
[2023-08-29 19:26] VITALS: BP 116/77; PULSE 82; RESP 16; TEMP 36.4; O2SAT 94
[2023-08-29 19:52] LABS: Vancomycin Random 18.3 mcg/mL (15-20)
[2023-08-29 23:11] VITALS: BP 130/81; PULSE 70; RESP 20; TEMP 36.2; O2SAT 92
[2023-08-30 03:38] VITALS: BP 114/66; PULSE 64; RESP 16; TEMP 36.4; O2SAT 96
[2023-08-30 07:14] LABS: Anion Gap 12 (12-20); Blood Urea Nitrogen 4 mg/dL (9-16); Calcium 8.4 mg/dL (8.4-10.2); Carbon Dioxide 29 mmol/L (22-29); Chloride 106 mmol/L (96-108); Creatinine Clr Calc Pharmacy 97.2; Estimated Glomerular Filt Rate > 60; Glucose Random 81 mg/dL (60-115); Sodium 144 mmol/L (135-145)
[2023-08-30 08:00] VITALS: BP 127/82; PULSE 71; RESP 20; TEMP 36.3; O2SAT 96
--- NOTE | 2023-08-30 09:00 | HE.PHANOTE ---
ERAN TONEY CONTINUE CURRENT DOSE, NEXT LEVEL DUE 08/31 @0900 . jason
[2023-08-30 13:45] VITALS: BP 129/79; PULSE 65; RESP 20; TEMP 36.9; O2SAT 96
--- NOTE | 2023-08-30 15:48 | HO.PM.IMPN ---
Subjective Subjective Date of Service: 08/30/23 Interval History: remains afebrile. Review of Systems Denies chest pain Denies shortness of breath Denies nausea vomiting diarrhea Denies fever chills Physical Exam Vital Signs: Vital Signs: Last Vital Signs Temp 98.5 F 08/30/23 13:45 Pulse 65 08/30/23 13:45 Resp 20 08/30/23 13:45 BP 129/79 08/30/23 13:45 Pulse Ox 96 08/30/23 13:45 O2 Del Method Room Air 08/30/23 13:45 BMI result Body Mass Index 20.8 Const: Other: no acute distress Resp: Other: clear to auscultation bilaterally no rales rhonchi or wheezes Cardio: Other: no S4; positive S1-S2; no S3 murmurs rubs or gallops GI: Other: soft nontender nondistended normoactive bowel sounds Skin: Other: see admission photos Extrem: Other: no edema bilaterally Objective Data Active Medications Acetaminophen (Acetaminophen 325 Mg Tablet) 650 mg PO Q6H PRN PRN Reason: Pain, Mild (Pain Scale 1-3) Last Admin: 08/28/23 11:41 Dose: 650 mg Documented By: TERA Ascorbic Acid (Ascorbic Acid 250 Mg Tablet) 250 mg PO BID [facility] Last Admin: 08/30/23 08:14 Dose: Not Given Documented By: DHRUV Non-Admin Reason: Patient Refused Docusate Sodium (Docusate Sodium 100 Mg Capsule) 100 mg PO BID [facility] Last Admin: 08/30/23 08:14 Dose: 100 mg Documented By: DHRUV Ferrous Sulfate (Ferrous Sulfate 324 Mg Tablet.) 324 mg PO BIDWM [facility] Last Admin: 08/30/23 08:14 Dose: Not Given Documented By: DHRUV Non-Admin Reason: Patient Refused Heparin Sodium (Porcine) (Heparin Sodium,Porcine 5,000 Unit/Ml Vial) 5,000 unit SUBCUT Q12H [facility] Last Admin: 08/30/23 05:46 Dose: Not Given Documented By: MAURILIO Non-Admin Reason: Patient Refused Vancomycin HCl 500 mg/ Sodium (Chloride) 110 mls @ 110 mls/hr IV Q12H [facility] Last Infusion: 08/30/23 13:51 Dose: Infused Documented By: DHRUV Melatonin (Melatonin 3 Mg Tablet) 6 mg PO BEDTIME PRN PRN Reason: Insomnia Last Admin: 08/29/23 20:31 Dose: 6 mg Documented By: C[place] Methadone HCl (Methadone Hcl 20 Mg/2 Ml Oral.Conc) 80 mg PO DAILY [facility] Last Admin: 08/30/23 08:13 Dose: 80 mg Documented By: DHRUV Morphine Sulfate (Morphine Sulfate 4 Mg/Ml Cartridge) 4 mg IVPUSH Q4H PRN; Protocol PRN Reason: Pain, Severe (Pain Scale 7-10) Last Admin: 08/30/23 12:41 Dose: 4 mg Documented By: LEONOR Multivitamins/Vitamin C (Multivitamin Tablet) 1 tab PO DAILY [facility] Last Admin: 08/30/23 08:15 Dose: Not Given Documented By: DHRUV Non-Admin Reason: Patient Refused Nicotine (Nicotine 21 Mg Patch.Td24) 21 mg TRANSDERMA DAILY [facility] Last Admin: 08/30/23 08:12 Dose: 21 mg Documented By: DHRUV Oxycodone HCl (Oxycodone Hcl Immed Release 5 Mg Tablet) 5 mg PO Q6H PRN PRN Reason: Pain, Moderate(Pain Scale 4-6) Last Admin: 08/30/23 13:54 Dose: 5 mg Documented By: DHRUV Pharmacy Consult (Consult Rx Vancomycin Dosing) 1 each MISCELLANE DAILY PRN PRN Reason: Consult order Sodium Chloride (0.9 % Sodium Chloride Flush 3 Ml Syringe) 3 ml IVFLUSH QSHIFT [facility] Last Admin: 08/30/23 08:14 Dose: 3 ml Documented By: DHRUV Sodium Hypochlorite (Sodium Hypochlorite 0.125% 473 Ml Solution) 1 appl TOPICAL DAILY [facility] Last Admin: 08/30/23 08:15 Dose: 1 appl Documented By: DHRUV Labs 08/29/23 07:00 08/30/23 06:23 Labs: Laboratory Results - last 24 hr 08/29/23 08/30/23 19:30 06:23 Hold Purple Top SEE NOTE Anion Gap 12 Estim Creat Clear Calc 97.2 Estimated GFR > 60 Random Glucose 81 Calcium 8.4 Random Vancomycin 18.3 Microbiology Microbiology Results: Microbiology 08/28/23 Unknown Urine Culture - Preliminary Urine Catheterized - Braun Catheter Gram negative iris 08/27/23 23:54 Blood Culture - Preliminary Blood - Venous No growth after 48 hours. 08/27/23 23:54 Blood Culture - Preliminary Blood - Venous No growth after 48 hours. 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 She is on IV vancomycin. Urine preliminary now with Gram-negative rods 1.Infected rt ischial decubitus ulcer/Ischial osteomyelitis - continue vancomycin as ordered(IV vancomycin for 6 weeks, recommended on 08/08 by ID, followed by 2 weeks of by mouth doxycycline) - pain control adequate - adjust as indicated 2. UTI ( preliminary Gram-negative rods) - will add Zosyn pending culture - continue Braun for skin integrity 3.HypoKalemia -follow renals/divalents - replete as indicated 4.Opioid use dosorder (OUD) -methadone as ordered full code Lovenox Patient need continued inpatient hospitalization for need for IV antibiotic and further management of infected decubiti ulcer Time Spent With Patient Time: Total time managing care of this patient today ____ minutes. Quality Stroke Does the patient have a stroke diagnosis?: No VTE Prior VTE?: No VTE Risk Level:: Medical - moderate - high VTE Device Contraindication: Treatment Not Indicated VTE Drug Contraindication: N/A - Med Ordered
[2023-08-30 16:00] VITALS: BP 116/76; PULSE 77; RESP 20; TEMP 36.4; O2SAT 97
--- NOTE | 2023-08-30 17:59 | MHC.RECOVRN ---
Attempt to make contact with pt- pt sleeping at this time, allowed to rest.
[2023-08-30 18:55] VITALS: BP 105/65; PULSE 80; RESP 20; TEMP 36.6; O2SAT 98
[2023-08-31] VITALS (7 sets, daily range): BP systolic 104–120; BP diastolic 63–80; PULSE 57–66; RESP 16–20; TEMP 35.9–36.8; O2SAT 93–97
[2023-08-31 09:24] LABS: Vancomycin Trough 15.9 mcg/mL (10.0-20.0)
[2023-08-31 09:24] LABS: Creatinine Clr Calc Pharmacy 83.6; Estimated Glomerular Filt Rate > 60
--- NOTE | 2023-08-31 09:33 | HE.PHANOTE ---
ERAN TONEY CONTINUE CURRENT DOSE, NEXT LEVEL DUE 09/01 @2100
--- NOTE | 2023-08-31 12:14 | HO.PM.IMPN ---
Subjective Subjective Date of Service: 08/31/23 Interval History: no acute issues overnight. Pain control adequate Review of Systems Denies chest pain Denies shortness of breath Denies nausea vomiting diarrhea Denies fever chills Physical Exam Vital Signs: Vital Signs: Last Vital Signs Temp 97.5 F 08/31/23 11:32 Pulse 58 08/31/23 11:32 Resp 20 08/31/23 11:32 BP 104/63 08/31/23 11:32 Pulse Ox 96 08/31/23 11:32 O2 Del Method Room Air 08/31/23 11:32 BMI result Body Mass Index 20.8 Const: Other: no acute distress Resp: Other: clear to auscultation bilaterally no rales rhonchi or wheezes Cardio: Other: no S4; positive S1-S2; no S3 murmurs rubs or gallops GI: Other: soft nontender nondistended normoactive bowel sounds Skin: Other: see admission photos Extrem: Other: no edema bilaterally Objective Data Active Medications Acetaminophen (Acetaminophen 325 Mg Tablet) 650 mg PO Q6H PRN PRN Reason: Pain, Mild (Pain Scale 1-3) Last Admin: 08/28/23 11:41 Dose: 650 mg Documented By: TERA Ascorbic Acid (Ascorbic Acid 250 Mg Tablet) 250 mg PO BID [facility] Last Admin: 08/31/23 08:55 Dose: Not Given Documented By: DHRUV Non-Admin Reason: Patient Refused Cyclobenzaprine HCl (Cyclobenzaprine Hcl 10 Mg Tablet) 10 mg PO TID PRN PRN Reason: Muscle Spasm Last Admin: 08/31/23 08:53 Dose: 10 mg Documented By: DHRUV Docusate Sodium (Docusate Sodium 100 Mg Capsule) 100 mg PO BID [facility] Last Admin: 08/31/23 08:53 Dose: 100 mg Documented By: DHRUV Ferrous Sulfate (Ferrous Sulfate 324 Mg Tablet.Dr) 324 mg PO BIDWM [facility] Last Admin: 08/31/23 08:54 Dose: Not Given Documented By: DHRUV Non-Admin Reason: Patient Refused Heparin Sodium (Porcine) (Heparin Sodium,Porcine 5,000 Unit/Ml Vial) 5,000 unit SUBCUT Q12H [facility] Last Admin: 08/31/23 06:23 Dose: Not Given Documented By: MAURILIO Non-Admin Reason: Patient Refused Piperacillin Sod/Tazobactam (Sod 4.5 gm/ Sodium Chloride) 100 mls @ 200 mls/hr IV Q6H [facility] Last Infusion: 08/31/23 10:23 Dose: Infused Documented By: DHRUV Vancomycin HCl 750 mg/ Sodium (Chloride) 265 mls @ 270 mls/hr IV Q12H [facility] Last Admin: 08/31/23 11:09 Dose: 270 mls/hr Documented By: DHRUV Melatonin (Melatonin 3 Mg Tablet) 6 mg PO BEDTIME PRN PRN Reason: Insomnia Last Admin: 08/29/23 20:31 Dose: 6 mg Documented By: [place] Methadone HCl (Methadone Hcl 20 Mg/2 Ml Oral.Conc) 80 mg PO DAILY [facility] Last Admin: 08/31/23 08:54 Dose: 80 mg Documented By: DHRUV Morphine Sulfate (Morphine Sulfate 4 Mg/Ml Cartridge) 4 mg IVPUSH Q4H PRN; Protocol PRN Reason: Pain, Severe (Pain Scale 7-10) Last Admin: 08/31/23 08:54 Dose: 4 mg Documented By: DHRUV Multivitamins/Vitamin C (Multivitamin Tablet) 1 tab PO DAILY [facility] Last Admin: 08/31/23 08:55 Dose: Not Given Documented By: DHRUV Non-Admin Reason: Patient Refused Nicotine (Nicotine 21 Mg Patch.Td24) 21 mg TRANSDERMA DAILY [facility] Last Admin: 08/31/23 08:54 Dose: 21 mg Documented By: DHRUV Oxycodone HCl (Oxycodone Hcl Immed Release 5 Mg Tablet) 5 mg PO Q6H PRN PRN Reason: Pain, Moderate(Pain Scale 4-6) Last Admin: 08/31/23 11:09 Dose: 5 mg Documented By: DHRUV Pharmacy Consult (Consult Rx Vancomycin Dosing) 1 each MISCELLANE DAILY PRN PRN Reason: Consult order Sodium Chloride (0.9 % Sodium Chloride Flush 3 Ml Syringe) 3 ml IVFLUSH QSHIFT [facility] Last Admin: 08/31/23 08:55 Dose: 3 ml Documented By: DHRUV Sodium Hypochlorite (Sodium Hypochlorite 0.125% 473 Ml Solution) 1 appl TOPICAL DAILY [facility] Last Admin: 08/31/23 08:55 Dose: 1 appl Documented By: DHRUV Labs 08/29/23 07:00 08/31/23 09:00 Labs: Laboratory Results - last 24 hr 08/31/23 09:00 Hold Purple Top SEE NOTE Estim Creat Clear Calc 83.6 Estimated GFR > 60 Vancomycin Trough 15.9 Microbiology Microbiology Results: Microbiology 08/28/23 Unknown Urine Culture - Final Urine Catheterized - Braun Catheter Klebsiella pneumoniae Proteus mirabilis Assessment and Plan (1) Sepsis: Status: Acute (2) Osteomyelitis: Status: Acute (3) Decubitus ulcer: Status: Acute Plan 47 year old female with multiple medical comorbidities including 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 She is on IV vancomycin. Urine preliminary now with Gram-negative rods 1.Infected rt ischial decubitus ulcer/Ischial osteomyelitis - continue vancomycin as ordered(IV vancomycin for 6 weeks, recommended on 08/08 by ID, followed by 2 weeks of by mouth doxycycline) - pain control adequate... will likely need placement for long-term IV antibiotics - adjust as indicated 2. UTI ( preliminary Gram-negative rods) - will add Zosyn pending culture - continue Braun for skin integrity 3.HypoKalemia -follow renals/divalents - replete as indicated 4.Opioid use dosorder (OUD) -methadone as ordered full code Lovenox Patient need continued inpatient hospitalization for need for IV antibiotic and further management of infected decubiti ulcer Time Spent With Patient Time: Total time managing care of this patient today ____ minutes. Quality Stroke Does the patient have a stroke diagnosis?: No VTE Prior VTE?: No VTE Risk Level:: Medical - moderate - high VTE Device Contraindication: Treatment Not Indicated VTE Drug Contraindication: N/A - Med Ordered
--- NOTE | 2023-08-31 14:54 | MHC.RECOVRN ---
This administrative underwriter met with patient, patient resting comfortably, reports no pain, reports no questions/concerns about MTD dose.
[2023-09-01] VITALS: BP 113/70; PULSE 65; RESP 19; TEMP 36.6; O2SAT 95
[2023-09-01 03:55] VITALS: BP 112/72; PULSE 54; RESP 19; TEMP 36.1; O2SAT 96
[2023-09-01 07:52] VITALS: BP 115/77; PULSE 60; RESP 16; TEMP 36.1; O2SAT 97
[2023-09-01 11:15] VITALS: BP 110/74; PULSE 71; RESP 18; TEMP 36.8; O2SAT 95
--- NOTE | 2023-09-01 11:40 | MHC.CLN ---
F/U PT IS MODERATELY MALNOURISHED SEE FULL CLINICAL NUTRITION ASSESSMENT DATED 08/29/23 DIET RX: REGULAR-APPROPRIATE PT RECEIVING ENSURE MAX BID TO PROMOTE WOUND HEALING SUPP PROVIDES 300KCALS, 60G PROTEIN MONITOR PO INTAKE CLOSELY
--- NOTE | 2023-09-01 12:46 | HO.PM.IMPN ---
Subjective Subjective Date of Service: 09/01/23 Interval History: no acute issues overnight. Remains afebrile Review of Systems Denies chest pain Denies shortness of breath Denies nausea vomiting diarrhea Denies fever chills Physical Exam Vital Signs: Vital Signs: Last Vital Signs Temp 98.3 F 09/01/23 11:15 Pulse 71 09/01/23 11:15 Resp 18 09/01/23 11:15 BP 110/74 09/01/23 11:15 Pulse Ox 95 09/01/23 11:15 O2 Del Method Room Air 09/01/23 11:15 BMI result Body Mass Index 20.8 Const: Other: no acute distress Resp: Other: clear to auscultation bilaterally no rales rhonchi or wheezes Cardio: Other: no S4; positive S1-S2; no S3 murmurs rubs or gallops GI: Other: soft nontender nondistended normoactive bowel sounds Skin: Other: see admission photos Extrem: Other: no edema bilaterally Objective Data Active Medications Acetaminophen (Acetaminophen 325 Mg Tablet) 650 mg PO Q6H PRN PRN Reason: Pain, Mild (Pain Scale 1-3) Last Admin: 08/28/23 11:41 Dose: 650 mg Documented By: TERA Ascorbic Acid (Ascorbic Acid 250 Mg Tablet) 250 mg PO BID [facility] Last Admin: 09/01/23 09:26 Dose: Not Given Documented By: ETRA Non-Admin Reason: Patient Refused Cyclobenzaprine HCl (Cyclobenzaprine Hcl 10 Mg Tablet) 10 mg PO TID PRN PRN Reason: Muscle Spasm Last Admin: 09/01/23 09:34 Dose: 10 mg Documented By: TERA Docusate Sodium (Docusate Sodium 100 Mg Capsule) 100 mg PO BID [facility] Last Admin: 09/01/23 09:25 Dose: 100 mg Documented By: TERA Ferrous Sulfate (Ferrous Sulfate 324 Mg Tablet.) 324 mg PO BIDWM [facility] Last Admin: 09/01/23 09:27 Dose: Not Given Documented By: TERA Non-Admin Reason: Patient Refused Heparin Sodium (Porcine) (Heparin Sodium,Porcine 5,000 Unit/Ml Vial) 5,000 unit SUBCUT Q12H [facility] Last Admin: 09/01/23 05:12 Dose: Not Given Documented By: TRIP Non-Admin Reason: Patient Refused Piperacillin Sod/Tazobactam (Sod 4.5 gm/ Sodium Chloride) 100 mls @ 200 mls/hr IV Q6H [facility] Last Infusion: 09/01/23 10:01 Dose: Infused Documented By: TERA Vancomycin HCl 750 mg/ Sodium (Chloride) 265 mls @ 270 mls/hr IV Q12H [facility] Last Infusion: 09/01/23 11:16 Dose: Infused Documented By: TERA Melatonin (Melatonin 3 Mg Tablet) 6 mg PO BEDTIME PRN PRN Reason: Insomnia Last Admin: 08/29/23 20:31 Dose: 6 mg Documented By: [place] Methadone HCl (Methadone Hcl 20 Mg/2 Ml Oral.Conc) 80 mg PO DAILY [facility] Last Admin: 09/01/23 09:24 Dose: 80 mg Documented By: TERA Morphine Sulfate (Morphine Sulfate 4 Mg/Ml Cartridge) 4 mg IVPUSH Q4H PRN; Protocol PRN Reason: Pain, Severe (Pain Scale 7-10) Last Admin: 09/01/23 09:27 Dose: 4 mg Documented By: TERA Multivitamins/Vitamin C (Multivitamin Tablet) 1 tab PO DAILY [facility] Last Admin: 09/01/23 09:27 Dose: Not Given Documented By: TERA Non-Admin Reason: Patient Refused Nicotine (Nicotine 21 Mg Patch.Td24) 21 mg TRANSDERMA DAILY [facility] Last Admin: 09/01/23 09:26 Dose: 21 mg Documented By: TERA Oxycodone HCl (Oxycodone Hcl Immed Release 5 Mg Tablet) 5 mg PO Q6H PRN PRN Reason: Pain, Moderate(Pain Scale 4-6) Last Admin: 08/31/23 11:09 Dose: 5 mg Documented By: DHRUV Pharmacy Consult (Consult Rx Vancomycin Dosing) 1 each MISCELLANE DAILY PRN PRN Reason: Consult order Sodium Chloride (0.9 % Sodium Chloride Flush 3 Ml Syringe) 3 ml IVFLUSH QSHIFT [facility] Last Admin: 09/01/23 09:36 Dose: 3 ml Documented By: TERA Sodium Hypochlorite (Sodium Hypochlorite 0.125% 473 Ml Solution) 1 appl TOPICAL DAILY [facility] Last Admin: 09/01/23 09:35 Dose: 1 appl Documented By: TERA Labs 08/29/23 07:00 09/01/23 06:46 Labs: Laboratory Results - last 24 hr 09/01/23 06:46 Hold Purple Top SEE NOTE Estim Creat Clear Calc 72.5 Estimated GFR > 60 Microbiology Microbiology Results: Microbiology 08/28/23 Unknown Urine Culture - Final Urine Catheterized - Braun Catheter Klebsiella pneumoniae Proteus mirabilis Assessment and Plan (1) Osteomyelitis: Status: Acute Plan 47 year old female with multiple medical comorbidities including 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 She is on IV vancomycin. Urine preliminary now with Gram-negative rods 1.Infected rt ischial decubitus ulcer/Ischial osteomyelitis - continue vancomycin as ordered(IV vancomycin for 6 weeks, recommended on 08/08 by ID, followed by 2 weeks of by mouth doxycycline) - pain control adequate... will likely need placement for long-term IV antibiotics - adjust as indicated 2. UTI ( preliminary Gram-negative rods) - switch to ceftriaxone now the sensitivities back - continue Braun for skin integrity 3.HypoKalemia -follow renals/divalents - replete as indicated 4.Opioid use dosorder (OUD) -methadone as ordered full code Lovenox Patient need continued inpatient hospitalization for need for IV antibiotic and further management of infected decubiti ulcer Time Spent With Patient Time: Total time managing care of this patient today ____ minutes. Quality Stroke Does the patient have a stroke diagnosis?: No VTE Prior VTE?: No VTE Risk Level:: Medical - moderate - high VTE Device Contraindication: Treatment Not Indicated VTE Drug Contraindication: N/A - Med Ordered
[2023-09-01 15:00] VITALS: BP 108/67; PULSE 53; RESP 20; TEMP 36.6; O2SAT 97
[2023-09-01 19:20] VITALS: BP 120/73; PULSE 62; RESP 20; TEMP 36.9; O2SAT 95
--- NOTE | 2023-09-01 22:06 | HE.PHANOTE ---
VANCO DOSE ADJUSTMENT BASED ON SCR INCREASE AND TROUGH OF 17.9 DOSE CHANGED TO 500 Q 12H. NEXT TROUGH 09/02 @ 2100
[2023-09-02] VITALS: BP 112/69; PULSE 68; RESP 20; TEMP 36; O2SAT 94
[2023-09-02 04:00] VITALS: BP 117/71; PULSE 60; RESP 20; TEMP 36.2; O2SAT 96
[2023-09-02 07:45] VITALS: BP 122/83; PULSE 69; RESP 16; TEMP 36.6; O2SAT 97
--- NOTE | 2023-09-02 08:33 | HO.WOUND ---
Addendum entered by Minerva Doss RN 09/02/23 08:42: Wound Assessment Wound Assessment/Pressure Injury Start: 08/28/23 21:09 Freq: DAILY@1000,2200 Status: Active Protocol: Document 08/29/23 10:00 JENNIFER (Rec: 08/29/23 11:54 JENNIFER [id number]) Pressure Injury Assessment Right Buttock Chronic Wound Yes Wound Staging Unstageable Primary Dressing Type Drainage Sponge Secondary Dressing Type Absorbant Pad Additional Dressing Comment changed today, CDI Wound Assessment/Pressure Injury Start: 08/29/23 14:28 Freq: DAILY@1000,2200 Status: Active Protocol: Document 09/01/23 22:00 AME (Rec: 09/01/23 22:20 [id number]) Pressure Injury Assessment Right Buttock Chronic Wound Yes Wound Staging Unstageable Wound Bed Appearance Beefy Red,[place],White,Yellow Wound Dressing Status Dry & Intact Date Dressing Changed 09/01/23 Topical Solution/Irrigant dakins Primary Dressing Type Absorbant Pad Medical History (Last Updated 08/28/23 @ 12:36 by Agnes Saleem PA-C) Anemia Asthma Cocaine use disorder Drug abuse in remission History of osteomyelitis (~08/15/23) Mood disorder Opioid use disorder Polysubstance (including opioids) dependence, daily use Original Note: Wound Care Consult Note 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
[2023-09-02 11:36] VITALS: BP 114/71; PULSE 59; RESP 16; TEMP 36.3; O2SAT 95
--- NOTE | 2023-09-02 13:16 | HO.PM.IMPN ---
Subjective Subjective Date of Service: 09/02/23 Interval History: Essentially no changes overnight. Remains tolerant of therapies Review of Systems Denies chest pain Denies shortness of breath Denies nausea vomiting diarrhea Denies fever chills Physical Exam Vital Signs: Vital Signs: Last Vital Signs Temp 97.3 F 09/02/23 11:36 Pulse 59 09/02/23 11:36 Resp 16 09/02/23 11:36 BP 114/71 09/02/23 11:36 Pulse Ox 95 09/02/23 11:36 O2 Del Method Room Air 09/02/23 11:36 O2 Flow Rate 95 09/02/23 00:00 BMI result Body Mass Index 20.8 Const: Other: no acute distress Resp: Other: clear to auscultation bilaterally no rales rhonchi or wheezes Cardio: Other: no S4; positive S1-S2; no S3 murmurs rubs or gallops GI: Other: soft nontender nondistended normoactive bowel sounds Skin: Other: see admission photos Extrem: Other: no edema bilaterally Objective Data Active Medications Acetaminophen (Acetaminophen 325 Mg Tablet) 650 mg PO Q6H PRN PRN Reason: Pain, Mild (Pain Scale 1-3) Last Admin: 08/28/23 11:41 Dose: 650 mg Documented By: TERA Ascorbic Acid (Ascorbic Acid 250 Mg Tablet) 250 mg PO BID [facility] Last Admin: 09/02/23 09:00 Dose: Not Given Documented By: TERA Non-Admin Reason: Patient Refused Cyclobenzaprine HCl (Cyclobenzaprine Hcl 10 Mg Tablet) 10 mg PO TID PRN PRN Reason: Muscle Spasm Last Admin: 09/02/23 08:58 Dose: 10 mg Documented By: TERA Docusate Sodium (Docusate Sodium 100 Mg Capsule) 100 mg PO BID [facility] Last Admin: 09/02/23 08:59 Dose: 100 mg Documented By: TERA Ferrous Sulfate (Ferrous Sulfate 324 Mg Tablet.) 324 mg PO BIDWM [facility] Last Admin: 09/02/23 09:00 Dose: Not Given Documented By: TERA Non-Admin Reason: Patient Refused Heparin Sodium (Porcine) (Heparin Sodium,Porcine 5,000 Unit/Ml Vial) 5,000 unit SUBCUT Q12H [facility] Last Admin: 09/02/23 05:02 Dose: Not Given Documented By: AME Non-Admin Reason: Patient Refused Ceftriaxone Sodium 1 gm/ (Sodium Chloride) 50 mls @ 100 mls/hr IV Q24H [facility] Last Infusion: 09/02/23 13:05 Dose: Infused Documented By: TERA Vancomycin HCl 500 mg/ Sodium (Chloride) 110 mls @ 110 mls/hr IV Q12H [facility] Last Infusion: 09/02/23 12:30 Dose: Infused Documented By: TERA Melatonin (Melatonin 3 Mg Tablet) 6 mg PO BEDTIME PRN PRN Reason: Insomnia Last Admin: 08/29/23 20:31 Dose: 6 mg Documented By: CLEVELAND Methadone HCl (Methadone Hcl 20 Mg/2 Ml Oral.Conc) 80 mg PO DAILY [facility] Last Admin: 09/02/23 08:59 Dose: 80 mg Documented By: TERA Morphine Sulfate (Morphine Sulfate 4 Mg/Ml Cartridge) 4 mg IVPUSH Q4H PRN; Protocol PRN Reason: Pain, Severe (Pain Scale 7-10) Last Admin: 09/02/23 08:57 Dose: 4 mg Documented By: TERA Multivitamins/Vitamin C (Multivitamin Tablet) 1 tab PO DAILY [facility] Last Admin: 09/02/23 09:00 Dose: Not Given Documented By: TERA Non-Admin Reason: Patient Refused Nicotine (Nicotine 21 Mg Patch.Td24) 21 mg TRANSDERMA DAILY [facility] Last Admin: 09/02/23 08:58 Dose: 21 mg Documented By: TERA Oxycodone HCl (Oxycodone Hcl Immed Release 5 Mg Tablet) 5 mg PO Q6H PRN PRN Reason: Pain, Moderate(Pain Scale 4-6) Last Admin: 08/31/23 11:09 Dose: 5 mg Documented By: DHRUV Pharmacy Consult (Consult Rx Vancomycin Dosing) 1 each MISCELLANE DAILY PRN PRN Reason: Consult order Sodium Chloride (0.9 % Sodium Chloride Flush 3 Ml Syringe) 3 ml IVFLUSH QSHIFT [facility] Last Admin: 09/02/23 08:57 Dose: 3 ml Documented By: TERA Sodium Hypochlorite (Sodium Hypochlorite 0.125% 473 Ml Solution) 1 appl TOPICAL DAILY [facility] Last Admin: 09/02/23 10:47 Dose: 1 appl Documented By: TERA Labs 08/29/23 07:00 09/02/23 06:48 Labs: Laboratory Results - last 24 hr 09/01/23 09/02/23 21:09 06:48 Estim Creat Clear Calc 83.6 Estimated GFR > 60 Vancomycin Trough 17.9 Microbiology Microbiology Results: Microbiology 08/27/23 23:54 Blood Culture - Final Blood - Venous No growth after 5 days. 08/27/23 23:54 Blood Culture - Final Blood - Venous No growth after 5 days. 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 She is on IV vancomycin. Urine preliminary now with Gram-negative rods 1.Infected rt ischial decubitus ulcer/Ischial osteomyelitis - continue vancomycin as ordered(IV vancomycin for 6 weeks, ()followed by 2 weeks of by mouth doxycycline) - pain control adequate... will likely need placement for long-term IV antibiotics - adjust as indicated 2. UTI ( preliminary Gram-negative rods) - switch to ceftriaxone now the sensitivities back - continue Braun for skin integrity 3.HypoKalemia -follow renals/divalents - replete as indicated 4.Opioid use dosorder (OUD) -methadone as ordered full code Lovenox Patient need continued inpatient hospitalization for need for IV antibiotic and further management of infected decubiti ulcer Time Spent With Patient Time: Total time managing care of this patient today ____ minutes. Quality Stroke Does the patient have a stroke diagnosis?: No VTE Prior VTE?: No VTE Risk Level:: Medical - moderate - high VTE Device Contraindication: Treatment Not Indicated VTE Drug Contraindication: N/A - Med Ordered
[2023-09-02 15:25] VITALS: BP 122/75; PULSE 56; RESP 22; TEMP 36.3; O2SAT 94
[2023-09-02 19:52] VITALS: BP 124/75; PULSE 61; RESP 20; TEMP 36.5; O2SAT 96
[2023-09-03] VITALS (7 sets, daily range): BP systolic 108–116; BP diastolic 63–80; PULSE 66–76; RESP 19–20; TEMP 36.3–36.9; O2SAT 94–97
[2023-09-03 08:11] LABS: Creatinine Clr Calc Pharmacy 86.4; Estimated Glomerular Filt Rate > 60
--- NOTE | 2023-09-03 13:22 | MHC.CLN ---
F/U PO INTAKE 50% AVG DIET RX: REGULAR-APPROPRIATE PT RECEIVING ENSURE MAX BID TO PROMOTE WOUND HEALING SUPP PROVIDES 300KCALS, 60G PROTEIN MONITOR PO INTAKE CLOSELY
--- NOTE | 2023-09-03 14:13 | MHC.CM.PN ---
EMR REVIEWED. PER MD ROUNDS PT POTENTIAL DC TOMORROW. AWAITING PLACEMENT FOR IV ABX. PT IS AGREEABLE TO [facility] ONLY, [facility] OR [facility]. REFERRAL IS IN TO [facility], AWAITING RESPONSE. WILL NEED GUEST DOSING WHEN A BED OFFER HAS BEEN MADE. CM WILL FOLLOW.
--- NOTE | 2023-09-03 14:18 | MHC.RECOVRN ---
Met with pt in 457 to follow up and provide support. Pt laying in bed, awake, alert, easily engages in conversation, soft spoken. Pt reports pain is manageable, muscle spasms in legs are uncomfortable but Flexeril helps, It works the best. Pt reports having not used substances x 8 months; no UDS done this admission. Pt inquisitive as to why she is unable to walk and plans to follow through with STR. Pt is comfortable with methadone dose, denies withdrawal symptoms. Pt denies questions or concerns at this time. Discussed with Shanelle Miller APRN.
--- NOTE | 2023-09-03 15:24 | P.PNIM_ITS ---
Subjective Subjective Date of Service: 09/03/23 Interval History: No acute changes overnight. Pain control adequate Review of Systems Denies chest pain Denies shortness of breath Denies nausea vomiting diarrhea Denies fever chills Physical Exam 2 Vital Signs: Vital Signs: Last Vital Signs Temp 98.1 F 09/03/23 11:14 Pulse 69 09/03/23 11:14 Resp 20 09/03/23 11:14 BP 114/75 09/03/23 11:14 Pulse Ox 95 09/03/23 11:14 O2 Del Method Room Air 09/03/23 11:14 O2 Flow Rate 95 09/02/23 00:00 BMI result Body Mass Index 20.8 Const: Other: no acute distress Resp: Other: clear to auscultation bilaterally no rales rhonchi or wheezes Cardio: Other: no S4; positive S1-S2; no S3 murmurs rubs or gallops GI: Other: soft nontender nondistended normoactive bowel sounds Skin: Other: see admission photos Extrem: Other: no edema bilaterally Objective Data Active Medications Acetaminophen (Acetaminophen 325 Mg Tablet) 650 mg PO Q6H PRN PRN Reason: Pain, Mild (Pain Scale 1-3) Last Admin: 08/28/23 11:41 Dose: 650 mg Documented By: TERA Ascorbic Acid (Ascorbic Acid 250 Mg Tablet) 250 mg PO BID [facility] Last Admin: 09/03/23 08:34 Dose: Not Given Documented By: RASHARD Non-Admin Reason: Patient Refused Cyclobenzaprine HCl (Cyclobenzaprine Hcl 10 Mg Tablet) 10 mg PO TID PRN PRN Reason: Muscle Spasm Last Admin: 09/03/23 10:58 Dose: 10 mg Documented By: RASHARD Docusate Sodium (Docusate Sodium 100 Mg Capsule) 100 mg PO BID [facility] Last Admin: 09/03/23 08:47 Dose: 100 mg Documented By: RASHARD Ferrous Sulfate (Ferrous Sulfate 324 Mg Tablet.Dr) 324 mg PO BIDWM [facility] Last Admin: 09/03/23 08:34 Dose: Not Given Documented By: RASHARD Non-Admin Reason: Patient Refused Heparin Sodium (Porcine) (Heparin Sodium,Porcine 5,000 Unit/Ml Vial) 5,000 unit SUBCUT Q12H [facility] Last Admin: 09/03/23 03:40 Dose: Not Given Documented By: CRISTINE Non-Admin Reason: Patient Refused Ceftriaxone Sodium 1 gm/ (Sodium Chloride) 50 mls @ 100 mls/hr IV Q24H [facility] Last Infusion: 09/03/23 13:15 Dose: Infused Documented By: RASHARD Vancomycin HCl 750 mg/ Sodium (Chloride) 265 mls @ 270 mls/hr IV Q12H [facility] Last Infusion: 09/03/23 12:04 Dose: Infused Documented By: RASHARD Melatonin (Melatonin 3 Mg Tablet) 6 mg PO BEDTIME PRN PRN Reason: Insomnia Last Admin: 08/29/23 20:31 Dose: 6 mg Documented By: CLEVELAND Methadone HCl (Methadone Hcl 20 Mg/2 Ml Oral.Conc) 80 mg PO DAILY [facility] Last Admin: 09/03/23 08:36 Dose: 80 mg Documented By: RASHARD Morphine Sulfate (Morphine Sulfate 4 Mg/Ml Cartridge) 4 mg IVPUSH Q4H PRN; Protocol PRN Reason: Pain, Severe (Pain Scale 7-10) Last Admin: 09/03/23 14:25 Dose: 4 mg Documented By: RASHARD Multivitamins/Vitamin C (Multivitamin Tablet) 1 tab PO DAILY [facility] Last Admin: 09/03/23 08:35 Dose: Not Given Documented By: RASHARD Non-Admin Reason: Patient Refused Nicotine (Nicotine 21 Mg Patch.Td24) 21 mg TRANSDERMA DAILY [facility] Last Admin: 09/03/23 08:51 Dose: Not Given Documented By: RASHARD Non-Admin Reason: Patient Refused Oxycodone HCl (Oxycodone Hcl Immed Release 5 Mg Tablet) 5 mg PO Q6H PRN PRN Reason: Pain, Severe (Pain Scale 7-10) Pharmacy Consult (Consult Rx Vancomycin Dosing) 1 each MISCELLANE DAILY PRN PRN Reason: Consult order Sodium Chloride (0.9 % Sodium Chloride Flush 3 Ml Syringe) 3 ml IVFLUSH QSHIFT [facility] Last Admin: 09/03/23 08:34 Dose: 3 ml Documented By: RASHARD Sodium Hypochlorite (Sodium Hypochlorite 0.125% 473 Ml Solution) 1 appl TOPICAL DAILY [facility] Last Admin: 09/03/23 08:35 Dose: 1 appl Documented By: RASHARD Labs 08/29/23 07:00 09/03/23 06:59 Labs: Laboratory Results - last 24 hr 09/02/23 09/03/23 21:09 06:59 Estim Creat Clear Calc 86.4 Estimated GFR > 60 Random Vancomycin 13.4 L Assessment and Plan (1) Osteomyelitis: Status: Acute Plan 47 year old female with multiple medical comorbidities including 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 She is on IV vancomycin. Urine preliminary now with Gram-negative rods 1.Infected rt ischial decubitus ulcer/Ischial osteomyelitis - continue vancomycin as ordered(IV vancomycin for 6 weeks()followed by 2 weeks of by mouth doxycycline) - PICC line ordered. . . Once accepted at [facility] will place 2. UTI ( preliminary Gram-negative rods) - switch to ceftriaxone now the sensitivities back - continue Braun for skin integrity -can switch to oral Ceftin upon discharge 3.HypoKalemia -follow renals/divalents - replete as indicated 4.Opioid use dosorder (OUD) -methadone as ordered full code Lovenox Patient need continued inpatient hospitalization for need for IV antibiotic and further management of infected decubiti ulcer Time Spent With Patient Time: Total time managing care of this patient today ____ minutes. Quality Stroke Does the patient have a stroke diagnosis?: No VTE Prior VTE?: No VTE Risk Level:: Medical - moderate - high VTE Device Contraindication: Treatment Not Indicated VTE Drug Contraindication: N/A - Med Ordered
[2023-09-03] MEDS: Morphine Sulfate 4 MG/ML CARTRIDGE IVPUSH ×2 (18:05→23:52)
[2023-09-03] MEDS: Heparin Sodium,Porcine 5,000 UNIT/ML VIAL 5000 UNIT SUBCUT (18:06)
[2023-09-03] MEDS: 0.9 % Sodium Chloride Flush 3 ML SYRINGE IVFLUSH ×2 (18:06→20:35)
--- NOTE | 2023-09-03 18:22 | HO.SKINPHOTO ---
Location: Category: Stage: Length: Width: Depth: cm Location: Category: Stage: Length: Width: Depth: cm Location: Category: Stage: Length: Width: Depth: cm Location: Category: Stage: Length: Width: Depth: cm Location: Category: Stage: Length: Width: Depth: cm Location: Category: Stage: Length: Width: Depth: cm
--- NOTE | 2023-09-03 18:27 | HO.SKINPHOTO ---
Location: R + L buttock Category: Stage: R- unstageable, L- stg 3 Length: Width: Depth: cm Location: Category: Stage: Length: Width: Depth: cm Location: Category: Stage: Length: Width: Depth: cm Location: Category: Stage: Length: Width: Depth: cm Location: Category: Stage: Length: Width: Depth: cm Location: Category: Stage: Length: Width: Depth: cm
[2023-09-03] MEDS: Melatonin 3 MG TABLET 6 MG PO (20:34)
[2023-09-03] MEDS: oxyCODONE HCl Immed Release 5 MG TABLET PO (20:34)
[2023-09-03] MEDS: Cyclobenzaprine HCl 10 MG TABLET PO (20:34)
[2023-09-03] MEDS: Acetaminophen 325 MG TABLET 650 MG PO (20:34)
[2023-09-03] MEDS: Docusate Sodium 100 MG CAPSULE PO (20:35)
[2023-09-03 21:32] LABS: Vancomycin Random 12.9 mcg/mL (15-20)
--- NOTE | 2023-09-03 21:39 | HE.PHANOTE ---
vancomycin addendum: level came back at 12.9, predicted AUC of 540, will continue samne dose
[2023-09-04 03:29] VITALS: BP 108/71; PULSE 62; RESP 19; TEMP 36.7; O2SAT 94
[2023-09-04] MEDS: Morphine Sulfate 4 MG/ML CARTRIDGE IVPUSH ×4 (06:17→19:49)
[2023-09-04 07:28] VITALS: BP 110/70; PULSE 58; RESP 20; TEMP 36.2; O2SAT 96
[2023-09-04 07:54] LABS: Creatinine Clr Calc Pharmacy 87.7; Estimated Glomerular Filt Rate > 60
--- NOTE | 2023-09-04 08:05 | PM.PNGS ---
Subjective Subjective Date of Service: 09/04/23 Interval history: No new events Also being treated for a UTI Physical Exam Vital Signs: Vital Signs: Last Vital Signs Temp 97.2 F 09/04/23 07:28 Pulse 58 09/04/23 07:28 Resp 20 09/04/23 07:28 BP 110/70 09/04/23 07:28 Pulse Ox 96 09/04/23 07:28 O2 Del Method Room Air 09/04/23 07:28 O2 Flow Rate 95 09/02/23 00:00 BMI result Body Mass Index 20.8 Const: General: comfortable and no acute distress Resp: Effort & Inspection: normal respiratory effort GI: Other: Incisions well healed, stoma functioning Palpation (GI): Soft to palpation and not firm Back/Spine/Pelvis: Other: Ulcer on the ischial tuberosity right side and right buttock clean, good healthy granulation tissue Objective Data Active Medications Acetaminophen (Acetaminophen 325 Mg Tablet) 650 mg PO Q6H PRN PRN Reason: Pain, Mild (Pain Scale 1-3) Last Admin: 09/03/23 20:34 Dose: 650 mg Documented By: MANOLO Ascorbic Acid (Ascorbic Acid 250 Mg Tablet) 250 mg PO BID [facility] Last Admin: 09/03/23 20:34 Dose: Not Given Documented By: MANOLO Non-Admin Reason: Patient Refused Cyclobenzaprine HCl (Cyclobenzaprine Hcl 10 Mg Tablet) 10 mg PO TID PRN PRN Reason: Muscle Spasm Last Admin: 09/03/23 20:34 Dose: 10 mg Documented By: MANOLO Docusate Sodium (Docusate Sodium 100 Mg Capsule) 100 mg PO BID [facility] Last Admin: 09/03/23 20:35 Dose: 100 mg Documented By: MANOLO Ferrous Sulfate (Ferrous Sulfate 324 Mg Tablet.) 324 mg PO BIDWM [facility] Last Admin: 09/03/23 17:15 Dose: Not Given Documented By: RASHARD Non-Admin Reason: Patient Refused Heparin Sodium (Porcine) (Heparin Sodium,Porcine 5,000 Unit/Ml Vial) 5,000 unit SUBCUT Q12H [facility] Last Admin: 09/04/23 06:31 Dose: Not Given Documented By: MANOLO Non-Admin Reason: Patient Refused Ceftriaxone Sodium 1 gm/ (Sodium Chloride) 50 mls @ 100 mls/hr IV Q24H [facility] Last Infusion: 09/03/23 13:15 Dose: Infused Documented By: RASHARD Vancomycin HCl 750 mg/ Sodium (Chloride) 265 mls @ 270 mls/hr IV Q12H [facility] Last Infusion: 09/04/23 00:55 Dose: Infused Documented By: MANOLO Melatonin (Melatonin 3 Mg Tablet) 6 mg PO BEDTIME PRN PRN Reason: Insomnia Last Admin: 09/03/23 20:34 Dose: 6 mg Documented By: MANOLO Methadone HCl (Methadone Hcl 20 Mg/2 Ml Oral.Conc) 80 mg PO DAILY [facility] Last Admin: 09/03/23 08:36 Dose: 80 mg Documented By: RASHARD Morphine Sulfate (Morphine Sulfate 4 Mg/Ml Cartridge) 4 mg IVPUSH Q4H PRN; Protocol PRN Reason: Pain, Severe (Pain Scale 7-10) Last Admin: 09/04/23 06:17 Dose: 4 mg Documented By: MANOLO Multivitamins/Vitamin C (Multivitamin Tablet) 1 tab PO DAILY [facility] Last Admin: 09/03/23 08:35 Dose: Not Given Documented By: RASHARD Non-Admin Reason: Patient Refused Nicotine (Nicotine 21 Mg Patch.Td24) 21 mg TRANSDERMA DAILY [facility] Last Admin: 09/03/23 08:51 Dose: Not Given Documented By: RASHARD Non-Admin Reason: Patient Refused Oxycodone HCl (Oxycodone Hcl Immed Release 5 Mg Tablet) 5 mg PO Q6H PRN PRN Reason: Pain, Severe (Pain Scale 7-10) Last Admin: 09/03/23 20:34 Dose: 5 mg Documented By: MANOLO Pharmacy Consult (Consult Rx Vancomycin Dosing) 1 each MISCELLANE DAILY PRN PRN Reason: Consult order Sodium Chloride (0.9 % Sodium Chloride Flush 3 Ml Syringe) 3 ml IVFLUSH QSHIFT [facility] Last Admin: 09/03/23 20:35 Dose: 3 ml Documented By: MANOLO Sodium Hypochlorite (Sodium Hypochlorite 0.125% 473 Ml Solution) 1 appl TOPICAL DAILY [facility] Last Admin: 09/03/23 08:35 Dose: 1 appl Documented By: RASHARD Labs 08/29/23 07:00 09/04/23 07:34 Labs: Laboratory Results - last 24 hr 09/03/23 09/03/23 09/04/23 06:59 21:00 07:34 Estim Creat Clear Calc 86.4 87.7 Estimated GFR > 60 > 60 Random Vancomycin 12.9 L Procedures Date of Service Date of Service: 09/04/23 Progress Note: A&P Assessment and plan (1) Decubitus ulcer: Status: Acute Assessment and Plan: I changed her dressings Wet to dry applied Skin zackery from incisions removed Continue bedsore precautions Okay to do wet to dry daily -may not need Dakin's at this time Time Spent With Patient Time: Total time managing care of this patient today ____ minutes. Quality Stroke Does the patient have a stroke diagnosis?: No VTE Prior VTE?: No VTE Risk Level:: Medical - moderate - high VTE Device Contraindication: Treatment Not Indicated VTE Drug Contraindication: N/A - Med Ordered
[2023-09-04] MEDS: Docusate Sodium 100 MG CAPSULE PO ×2 (09:10→19:49)
[2023-09-04] MEDS: Cyclobenzaprine HCl 10 MG TABLET PO ×3 (09:10→22:29)
[2023-09-04] MEDS: methADONE HCl 20 MG/2 ML ORAL.CONC 80 MG PO (09:10)
[2023-09-04] MEDS: 0.9 % Sodium Chloride Flush 3 ML SYRINGE IVFLUSH ×3 (09:10→19:49)
[2023-09-04] MEDS: Nicotine 21 MG PATCH.TD24 TRANSDERMA (09:11)
[2023-09-04] MEDS: oxyCODONE HCl Immed Release 5 MG TABLET PO ×3 (09:16→19:49)
--- NOTE | 2023-09-04 10:40 | HO.WOUND ---
Addendum entered by Minerva Doss RN 09/04/23 13:37: Recommend Wheelchair Cushion assessment at time of d/c from facility prior to home. Pt currently uses standard wheelchair with canvas bottom no cushion in place. Pt is homeless and sleeps in her wheelchair and reports she is in her wheelchair 100% of the day. Pt instructed to use waffle cushion until more appropriate cushion is available. Pt educated waffle cushion is only good for approximately 30 days and she was encouraged to follow up with outpatient recommendations at time of d/c. Original Note: Wound Consult: Initial 47yr old female admitted to [facility] on 08/28/23 01:40 - See progress notes and H&P for detailed history. Right Ischium / Buttock Etiology: Unstageable Pressure Injury POA Measurement and wound bed details: unable to assess per pt request Pain: Pt reports pain and requests assessment be completed at next dressing change 09/05/23 Changed this am by Dr. Bishop. Goals of Treatment: New orders from Dr. Bishop to pack with NS moist gauze wrap - per his statement wound bed improving. Left Ischium / Buttocks Etiology: Unstageable Pressure Injury Measurements: 3cm x 3cm x 0.1cm Wound Bed: Two areas of tissue loss - Superior site with adherent yellow slough unable to visualize wound bed - inferior site: pale pink moist wound bed Drainage / Odor: No drainage no odor noted Edges: ?Attached Daya wound: ?Evidence of MASD - Intact light purple hyperpigmented dry tissue remains slow to aroldo throughout Pain: Reports mild discomfort on assessment Goals of Treatment: ?Off Load Pressure and protect from friction with foam and Triad to allow for autolytic debridement and moist wound healing. Follow up in 3-5 days if remains inpatient. If patient is discharged consider follow up with [facility] for continued care and treatment. Recommendations: 1. Right Ischium / Buttock - Defer to Surgery orders. Off Load Pressure. 2. Left Ischium / Buttocks - Off Load Pressure - Cleanse with NS or Bathing Cloth, pat dry. ?Apply thin layer of Triad to wound bed - only pat and dab no scrub and rub when soiling occurs. Cover with Foam dressing. Change Daily. 3. Turn and Reposition every 2 hours and as needed for patient comfort, when up to chair limit sit time to no greater than 2hr increments and use waffle cushion to aid in off loading pressure. 4. Off Load all bony prominences with use of pillows and or wedges. 5. Monitor for incontinence and moisture control use barrier creams for prevention. 6. Provide adequate and supplemental nutrition. 7. Continue with Low Air Loss Mattress Wound Care Nurse will continue to follow.
[2023-09-04 11:06] VITALS: BP 112/72; PULSE 66; RESP 20; TEMP 36.8; O2SAT 95
[2023-09-04] MEDS: Acetaminophen 325 MG TABLET 650 MG PO (11:07)
--- NOTE | 2023-09-04 11:57 | MHC.RECOVRN ---
Met with pt in 457 to follow up and provide support. Pt laying in bed, awake, alert, easily engages in conversation, soft spoken. Pt states I'm doing okay. Pt reports pain in leg is uncomfortable but is otherwise doing well. Pt continues to plan to dc to [facility]. Denies questions or concerns for t/w.
--- NOTE | 2023-09-04 13:39 | MHC.CM.PN ---
[facility] has a bed for Patient. HECTOR spoke with Dorene from [facility] @ [phone] regarding Guest dosing for Patient's Methadone, while she is at [facility]. Dorene indicated she needs the dc summary 24 hours prior to dc in order for their Doctor to review to determine if they can accept Patient (CM has informed Attending). Also, the last dose letter and insurance information is needed from [facility]. Patient's usual Clinic/[facility] will need to provide the Guest Dose form, Biosocial information and dosing history. CM attempted to reach out to [facility] @ [phone] but the Clinic is already closed for the day. CM will follow.
[2023-09-04] MEDS: cefTRIAXone sodium 1 GM in 0.9 % Sodium Chloride 50 ML IV (13:41)
[2023-09-04 15:13] VITALS: BP 106/73; PULSE 75; RESP 20; TEMP 36.3; O2SAT 96
--- NOTE | 2023-09-04 16:22 | P.PNIM_ITS ---
Subjective Subjective Date of Service: 09/04/23 Interval History: pain controlled dressing changed by surgeon this AM no fever Review of Systems Review of Systems: Yes all other systems are reviewed and are negative Physical Exam 2 Vital Signs: Vital Signs: Last Vital Signs Temp 97.4 F 09/04/23 15:13 Pulse 75 09/04/23 15:13 Resp 20 09/04/23 15:13 BP 106/73 09/04/23 15:13 Pulse Ox 96 09/04/23 15:13 O2 Del Method Room Air 09/04/23 15:13 O2 Flow Rate 95 09/02/23 00:00 BMI result Body Mass Index 20.8 Gen: in no acute distress HEENT: sclera anicteric, moist mucus membranes Neck: supple, LIJ 3LC CVC Lungs: clear to auscultation bilaterally Heart: regular rate and rhythm, no murmurs Abd: soft, non-tender, stoma functioning Ext: no edema Skin: warm/well-perfused, ulcer of R buttock and ischial tuberosity with granulation tissue per surgeon Neuro: alert and oriented x3, no focal findings Psych: appropriate affect Objective Data Active Medications Acetaminophen (Acetaminophen 325 Mg Tablet) 650 mg PO Q6H PRN PRN Reason: Pain, Mild (Pain Scale 1-3) Last Admin: 09/04/23 11:07 Dose: 650 mg Documented By: DHRUV Ascorbic Acid (Ascorbic Acid 250 Mg Tablet) 250 mg PO BID [facility] Last Admin: 09/04/23 09:12 Dose: Not Given Documented By: KYLE Non-Admin Reason: Patient Refused Cyclobenzaprine HCl (Cyclobenzaprine Hcl 10 Mg Tablet) 10 mg PO TID PRN PRN Reason: Muscle Spasm Last Admin: 09/04/23 15:19 Dose: 10 mg Documented By: DHRUV Docusate Sodium (Docusate Sodium 100 Mg Capsule) 100 mg PO BID [facility] Last Admin: 09/04/23 09:10 Dose: 100 mg Documented By: KYLE Ferrous Sulfate (Ferrous Sulfate 324 Mg Tablet.Dr) 324 mg PO BIDWM [facility] Last Admin: 09/04/23 14:51 Dose: Not Given Documented By: DHRUV Non-Admin Reason: Patient Refused Heparin Sodium (Porcine) (Heparin Sodium,Porcine 5,000 Unit/Ml Vial) 5,000 unit SUBCUT Q12H [facility] Last Admin: 09/04/23 14:51 Dose: Not Given Documented By: DHRUV Non-Admin Reason: Patient Refused Ceftriaxone Sodium 1 gm/ (Sodium Chloride) 50 mls @ 100 mls/hr IV Q24H [facility] Last Infusion: 09/04/23 14:51 Dose: Infused Documented By: DHRUV Vancomycin HCl 750 mg/ Sodium (Chloride) 265 mls @ 270 mls/hr IV Q12H [facility] Last Infusion: 09/04/23 12:29 Dose: Infused Documented By: DHRUV Melatonin (Melatonin 3 Mg Tablet) 6 mg PO BEDTIME PRN PRN Reason: Insomnia Last Admin: 09/03/23 20:34 Dose: 6 mg Documented By: MANOLO Methadone HCl (Methadone Hcl 20 Mg/2 Ml Oral.Conc) 80 mg PO DAILY [facility] Last Admin: 09/04/23 09:10 Dose: 80 mg Documented By: KYLE Morphine Sulfate (Morphine Sulfate 4 Mg/Ml Cartridge) 4 mg IVPUSH Q4H PRN; Protocol PRN Reason: Pain, Severe (Pain Scale 7-10) Last Admin: 09/04/23 15:20 Dose: 4 mg Documented By: DHRUV Multivitamins/Vitamin C (Multivitamin Tablet) 1 tab PO DAILY [facility] Last Admin: 09/04/23 09:12 Dose: Not Given Documented By: KYLE Non-Admin Reason: Patient Refused Nicotine (Nicotine 21 Mg Patch.Td24) 21 mg TRANSDERMA DAILY [facility] Last Admin: 09/04/23 09:11 Dose: 21 mg Documented By: KYLE Oxycodone HCl (Oxycodone Hcl Immed Release 5 Mg Tablet) 5 mg PO Q6H PRN PRN Reason: Pain, Severe (Pain Scale 7-10) Last Admin: 09/04/23 13:40 Dose: 5 mg Documented By: DHRUV Pharmacy Consult (Consult Rx Vancomycin Dosing) 1 each MISCELLANE DAILY PRN PRN Reason: Consult order Sodium Chloride (0.9 % Sodium Chloride Flush 3 Ml Syringe) 3 ml IVFLUSH QSHIFT [facility] Last Admin: 09/04/23 13:41 Dose: 3 ml Documented By: DHRUV Sodium Hypochlorite (Sodium Hypochlorite 0.125% 473 Ml Solution) 1 appl TOPICAL DAILY [facility] Last Admin: 09/04/23 09:25 Dose: Not Given Documented By: KYLE Non-Admin Reason: wound care orders changed Labs 08/29/23 07:00 09/04/23 07:34 Labs: Laboratory Results - last 24 hr 09/03/23 09/04/23 21:00 07:34 Estim Creat Clear Calc 87.7 Estimated GFR > 60 Random Vancomycin 12.9 L Assessment and Plan (1) Osteomyelitis: Status: Acute Plan d8 47yo homeless wheelchair-bound F [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] with hx polysubstance abuse, opioid use disorder on methadone, mood disorder, thoracic vertebral osteomyelitis s/p C5-T4 fusion and T1-T2 laminectomies 02/12/23, and infected sacral decubitus ulcer who was just admitted here 07/26-07/30/23 for infection of the decibitus ulcer then admitted again 08/07/23 for maggot infestation and osteomyelitis, diverting colostomy due 08/12/23, but then pt signed out AMA 08/15/23 re-admitted 08/28/23 with osteomyelitis/maggot infestation R sacral/ischial decubitus ulcer with maggot infectation and osteomyelitis - continue vancomycin, day [followed by 2 wk of PO doxycycline] - has LIJ 3LC, replace with PICC once accepted at [facility] - wet to dry dressings with NS daily to right buttock ulcer per Surgery UTI, Klebsiella pneumoniae + Proteus mirabilis - ceftriaxone 09/01-09/07 [switch to cefuroxime upon discharge] - Braun for skin integrity hypoK - repleted, recheck level in AM LUCINDA - replete tobacco abuse - NRT OUD - methadone VTE ppx - LMWH dispo - STR at [facility] In my clinical judgment, the patient requires continued inpatient hospitalization for the following reasons: IV ABX, placement Time Spent With Patient Time: Total time managing care of this patient today ___45_ minutes. Quality Stroke Does the patient have a stroke diagnosis?: No VTE Prior VTE?: No VTE Risk Level:: Medical - moderate - high VTE Device Contraindication: Treatment Not Indicated VTE Drug Contraindication: N/A - Med Ordered
--- NOTE | 2023-09-04 16:37 | PM.DS ---
DS: Providers Provider Date of Service: 09/05/23 Date of admission: 08/28/23 01:40 Date of discharge: 09/05/23 Primary care physician: Unknown Physician Consults: 08/28/23 01:40 Addiction Medicine Routine Consulting Provider: Addiction Covering Reason for consultation: OUD Has provider been notified: No 08/28/23 01:46 Consult to General Surgery Routine Consulting Provider: [facility] Reason for consultation: Decub ulcer, need debridment Has provider been notified: No Consult to Wound Care Routine Consulting Provider: [facility] Reason for consultation: decub ulcer Has provider been notified: No DS: Diagnosis Discharge Diagnosis (1) Osteomyelitis: Status: Acute (2) Acute hypokalemia: Status: Acute (3) Anemia in chronic illness: Status: Acute (4) UTI (urinary tract infection): Status: Acute (5) S/P colostomy: Status: Acute (6) Decubitus ulcer: Status: Acute (7) Maggot infestation: Status: Acute (8) Moderate protein-calorie malnutrition: Status: Acute (9) Left against medical advice: Status: Inactive DS: Summary Hospital Course Hospital Course: from admission H+P by hospitalist Gildardo Powers MD, 08/28/23: 47yo homeless, wheelchair-bound F [paraplegic ] with hx polysubstance abuse, opioid use disorder on methadone, history of MRSA bacteremia, s/p colostomy, mood disorder, thoracic vertebral osteomyelitis s/p C5-T4 fusion and T1-T2 laminectomies 02/12/23, s/p colostomy in 4/ and infected decubitus ulcer who was just admitted here 08/07-08/15/23 for infected ischial decubitus ulcer/ ischial osteomyelitis. She was to be discharged with PICC line for 6 weeks of IV Vanco and to follow by 2 weeks of oral Doxycyline but left AMA. She returns here today with worsening of infectin decub ulcer with magot noted, also stated colostomy bag not changed in at least a week and chronic roberts with sediments. 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] with hx polysubstance abuse, opioid use disorder on methadone, mood disorder, thoracic vertebral osteomyelitis s/p C5-T4 fusion and T1-T2 laminectomies 02/12/23, and infected sacral decubitus ulcer who was just admitted here 07/26-07/30/23 for infection of the decibitus ulcer then admitted again 08/07/23 for maggot infestation and osteomyelitis, diverting colostomy due 08/12/23, but then pt signed out AMA 08/15/23 re-admitted 08/28/23 with sepsis from osteomyelitis/maggot infestation hospital course by problem: R sacral/ischial decubitus ulcer with maggot infectation and osteomyelitis - debrided at bedside by surgeon 08/28 and 08/29 - wet to dry dressings with NS daily to right buttock ulcer per Surgery, outpt follow up with [facility] Gen Surg - continued vancomycin via LIJ central line placed in ED on 08/28/23 - plan was to transfer to [facility] for short-term rehabilitation and outpatient IV antibiotic [vancomycin to continue until 09/19/23, then doxycycline PO 100 mg bid for 2 wk]; however, the pt signed out AGAINST MEDICAL ADVICE on 09/05/23 despite extensive counseling on the potentially devastating and lethal consequences of doing so; she was prescribed 28d of doxycycline as a temporizing measure but counseled to return to the hospital as soon as possible UTI, Klebsiella pneumoniae + Proteus mirabilis - ceftriaxone 09/01-09/05, switched to cefuroxime upon discharge, end date 09/08 hypoK - repleted LUCINDA - repleted tobacco abuse - NRT OUD - methadone continued moderate protein-carloie malnutrition - started on supplements Time Spent with Patient Time attestation: Total time managing care of this patient today ___55_ minutes. Discharge coordination time: Greater than 30 minutes Quality: Safe Use of Opioids Does Pt have an Active Cancer Diagnosis on the Problem List?: No Quality: Stroke Does the patient have a stroke diagnosis?: No Physical Exam Vital Signs: Vital Signs: Last Vital Signs Temp 97.4 F 09/04/23 15:13 Pulse 75 09/04/23 15:13 Resp 20 09/04/23 15:13 BP 106/73 09/04/23 15:13 Pulse Ox 96 09/04/23 15:13 O2 Del Method Room Air 09/04/23 15:13 O2 Flow Rate 95 09/02/23 00:00 BMI result Body Mass Index 20.8 Gen: in no acute distress HEENT: sclera anicteric, moist mucus membranes Neck: supple Lungs: clear to auscultation bilaterally Heart: regular rate and rhythm, no murmurs Abd: soft, non-tender, stoma functioning Ext: no edema Skin: warm/well-perfused, ulcer of R buttock and ischial tuberosity with granulation tissue Neuro: alert and oriented x3, no focal findings Psych: appropriate affect DS: Data Data Completed and Pending Completed studies during hospitalization [Text1]: Laboratory Results WBC 10.6 X10*3/uL (4.8-10.8) 08/29/23 07:00 RBC 3.56 X10*6/uL (4.20-5.50) L 08/29/23 07:00 Hgb 8.9 g/dl (12.0-16.0) L 08/29/23 07:00 Hct 28.7 % (37.0-47.0) L 08/29/23 07:00 MCV 80.6 fL (80.0-98.0) 08/29/23 07:00 MCH 25.0 pg (27.0-33.0) L 08/29/23 07:00 MCHC 31.0 g/dl (31.0-35.0) 08/29/23 07:00 RDW 18.6 % (11.0-16.0) H 08/29/23 07:00 Plt Count 507 X10*3/uL (160-400) H 08/29/23 07:00 MPV 9.3 fL (9.4-12.3) L 08/29/23 07:00 Immature Gran % (Auto) 1.1 % (0.0-0.4) H 08/27/23 23:48 Neut % (Auto) 76.4 % (45-73) H 08/27/23 23:48 Lymph % (Auto) 13.8 % (20-40) L 08/27/23 23:48 [place] % (Auto) 5.8 % (2-11) 08/27/23 23:48 Eos % (Auto) 2.5 % (0-4) 08/27/23 23:48 Baso % (Auto) 0.4 % (0-2) 08/27/23 23:48 Lymph # (Auto) 2.2 X10*3/uL (1.2-4.9) 08/27/23 23:48 [place] # (Auto) 0.9 X10*3/uL (0.1-1.2) 08/27/23 23:48 Eos # (Auto) 0.4 X10*3/uL (0.0-0.4) 08/27/23 23:48 Baso # (Auto) 0.1 X10*3/uL (0.0-0.2) 08/27/23 23:48 Abs Immat Gran (auto) 0.17 X10*3/uL (0.00-0.03) H 08/27/23 23:48 Absolute Neuts (auto) 12.1 x10*3/uL (2.0-8.3) H 08/27/23 23:48 Absolute Nucleated RBC 0.000 X10*3/uL (0.0-0.012) 08/29/23 07:00 Nucleated RBC % (auto) 0.0 /100WBC (0.0-0.2) 08/29/23 07:00 ESR 89 MM/HR (0-20) H 08/27/23 23:48 Hold Purple Top SEE NOTE 09/01/23 06:46 Sodium 140 mmol/L (135-145) 09/05/23 05:43 Potassium 3.3 mmol/L (3.3-5.1) 09/05/23 05:43 Chloride 106 mmol/L (96-108) 09/05/23 05:43 Carbon Dioxide 24 mmol/L (22-29) 09/05/23 05:43 Anion Gap 13 (12-20) 09/05/23 05:43 BUN 14 mg/dL (9-16) 09/05/23 05:43 Creatinine 0.59 mg/dL (0.5-1.4) 09/05/23 05:43 Estim Creat Clear Calc 92.2 09/05/23 05:43 Estimated GFR > 60 09/05/23 05:43 Random Glucose 112 mg/dL (60-115) 09/05/23 05:43 Lactic Acid 1.0 mmol/L (0.5-2.0) 08/27/23 23:48 Calcium 8.4 mg/dL (8.4-10.2) 09/05/23 05:43 Magnesium 1.7 mg/dL (1.6-2.6) 08/27/23 23:48 Total Bilirubin 0.3 mg/dL (0.0-1.0) 08/27/23 23:48 AST 19 U/L (5-31) 08/27/23 23:48 ALT 9 U/L (0-31) 08/27/23 23:48 Alkaline Phosphatase 97 U/L (39-117) 08/27/23 23:48 C-Reactive Protein 20.72 mg/dL (< or = 0.50) H 08/27/23 23:48 Total Protein 6.7 g/dL (6.5-8.0) 08/27/23 23:48 Albumin 2.6 g/dL (3.5-5.0) L 08/27/23 23:48 Urine Color Yellow 08/27/23 23:48 Urine Appearance Cloudy 08/27/23 23:48 Urine pH 8.0 (5.0-9.0) 08/27/23 23:48 Ur Specific [place] 1.015 (1.005-1.025) 08/27/23 23:48 Urine Protein 30 (1+) mg/dL (Neg-Trace) H 08/27/23 23:48 Urine Glucose (UA) Negative mg/dL (Negative) 08/27/23 23:48 Urine Ketones Negative mg/dL (Negative) 08/27/23 23:48 Urine Blood Small (1+) (Negative) H 08/27/23 23:48 Urine Nitrite Negative (Negative) 08/27/23 23:48 Ur Leukocyte Esterase Large (3+) (Negative) H 08/27/23 23:48 Urine RBC 11-20 /HPF (0-2) H 08/27/23 23:48 Urine WBC >50 /HPF (0-5) H 08/27/23 23:48 Ur Squamous Epith Cells 0-2 /HPF (0-2) 08/27/23 23:48 Urine Bacteria Trace (None Seen) 08/27/23 23:48 Hyaline Casts 0-2 /LPF (0-2) 08/27/23 23:48 Vancomycin Trough 17.9 mcg/mL (10.0-20.0) 09/01/23 21:09 Random Vancomycin 14.5 mcg/mL (15-20) L 09/04/23 20:58 COVID-19 (NEGRITO) Negative (Negative) 08/27/23 23:50 COVID-19 Clin Com See Note 08/27/23 23:50 Blood Type B Positive 08/28/23 01:24 Antibody Screen NEGATIVE 08/28/23 01:24 Crossmatch See Detail 08/28/23 01:24 Crossmatch (AHG) See Detail 08/28/23 01:24 Impressions Chest X-Ray 08/28/23 00:05 IMPRESSION: Left approach central line terminates at the lower SVC/right atrial junction. There is no pneumothorax. Discharge Plan Discharge Anticipated Discharge Date/Time: 09/05/23 16:43 Patient Disposition: Left Against Medical Advice Discharge Diagnosis: sepsis due to R sacral/ischial decubitus ulcer with maggot infectation and osteomyelitis UTI, Klebsiella pneumoniae + Proteus mirabilis hypoK malnutrition LEFT AGAINST MEDICAL ADVICE Ref[place]: [facility]Provider Group] - 1 Week Stephen Bishop MD [Physician] - 1 Week Jennifer Arrington MD [Physician] - 1 Week Physician,Angel J [Primary Care Provider] - 1 Week Discharge Medications: New nicotine 21 mg/24 hr Patch 24 Hour 21 mg transdermal DAILY Qty: 30 0RF cefuroxime axetil 500 mg tablet 500 mg PO Q12H Qty: 6 0RF Continued (DME) colostomy bags 3 misc See Rx Instructions .ROUTE .MEDSUPPLY Qty: 30 2RF Rx Instructions: As directed acetaminophen 325 mg Tablet 650 mg PO Q6H PRN (Reason: Pain, Mild (Pain Scale 1-3)) Qty: 60 0RF nicotine 21 mg/24 hr Patch 24 Hour 21 mg transdermal DAILY Qty: 30 0RF ferrous sulfate 324 mg (65 mg iron) tablet,delayed release (DR/EC) 324 mg PO DAILY Qty: 90 0RF multivitamin Tablet 1 tab PO DAILY Qty: 90 0RF docusate sodium [Colace] 100 mg capsule 100 mg PO BID Qty: 180 0RF doxycycline hyclate 100 mg capsule 100 mg PO BID Qty: 56 0RF methadone 10 mg/mL Concentrate 80 mg PO DAILY Discontinued oxycodone 5 mg Tablet 10 mg PO Q6H PRN (Reason: Pain, Severe (Pain Scale 7-10)) Qty: 16 0RF Rx Instructions: Partial Fill upon patient request. Discharge Orders: Discharge Order (Routine); Ordered 09/05/23 Ordered By: Renetta Shah Diet: Advance to usual diet Activity on Discharge: As tolerated Care Plan Goals: cure of infection Health Concerns: sepsis due to R sacral/ischial decubitus ulcer with maggot infectation and osteomyelitis UTI, Klebsiella pneumoniae + Proteus mirabilis hypoK malnutrition LEFT AGAINST MEDICAL ADVICE Plan of Treatment: original plan was to transfer to [facility] for short-term rehabilitation and vancomycin 750 mg IV every 12 hours for 14 days, then doxycycline 100 mg PO every 12 hours for 14 days however, you signed out against medical advice take doxycycline 100 mg PO every 12 hours for 28 days take cefuroxime 500 mg PO every 12 hours for 3 days wet to dry dressings with NS daily to right buttock ulcer follow up with [facility] and [facility] [place] Surgery in 1 week take Ensure 1 can 3x a day return to hospital as soon as possible to resume definitive care of your serious, deep infection establish primary care as soon as possible Assessment: See Discharge Summary.
[2023-09-04 19:00] VITALS: BP 109/72; PULSE 75; RESP 20; TEMP 36.2; O2SAT 95
[2023-09-04] MEDS: Melatonin 3 MG TABLET 6 MG PO (19:50)
[2023-09-04 21:18] LABS: Vancomycin Random 14.5 mcg/mL (15-20)
[2023-09-05] VITALS (7 sets, daily range): BP systolic 96–108; BP diastolic 56–71; PULSE 69–90; RESP 18–20; TEMP 36.4–37.3; O2SAT 93–97
[2023-09-05] MEDS: Morphine Sulfate 4 MG/ML CARTRIDGE IVPUSH ×6 (01:20→22:46)
[2023-09-05] MEDS: oxyCODONE HCl Immed Release 5 MG TABLET PO ×3 (01:20→18:21)
[2023-09-05] MEDS: Acetaminophen 325 MG TABLET 650 MG PO ×2 (03:21→14:47)
[2023-09-05 07:13] LABS: Anion Gap 13 (12-20); Blood Urea Nitrogen 14 mg/dL (9-16); Calcium 8.4 mg/dL (8.4-10.2); Carbon Dioxide 24 mmol/L (22-29); Chloride 106 mmol/L (96-108); Creatinine Clr Calc Pharmacy 92.2; Estimated Glomerular Filt Rate > 60; Glucose Random 112 mg/dL (60-115); Potassium 3.3 mmol/L (3.3-5.1); Sodium 140 mmol/L (135-145)
--- NOTE | 2023-09-05 08:28 | MHC.CM.PN ---
CM spoke with Anibal from [facility] @ [phone] and have faxed the ABDIAZIZ to him at fax # [phone].Anibal has indicated that once the ABDIAZIZ is received he will provide [facility] with the requested documentation for Guest Dosing.HECTOR has also faxed dc summary to [facility] as they requested and CM awaits a decision if they are able to accept Patient. CM will follow.
[2023-09-05] MEDS: Cyclobenzaprine HCl 10 MG TABLET PO ×2 (09:07→14:47)
[2023-09-05] MEDS: Docusate Sodium 100 MG CAPSULE PO (09:07)
[2023-09-05] MEDS: methADONE HCl 20 MG/2 ML ORAL.CONC 80 MG PO (09:07)
[2023-09-05] MEDS: 0.9 % Sodium Chloride Flush 3 ML SYRINGE IVFLUSH ×3 (09:08→20:33)
--- NOTE | 2023-09-05 09:49 | MHC.CM.PN ---
MDS has been uploaded into [facility] and faxed to [facility].
--- NOTE | 2023-09-05 11:07 | MHC.CM.PN ---
[facility] has indicated that Patient cannot be admitted over the weekend; it will be at least until Friday or Friday. MD made aware and CM will follow.
--- NOTE | 2023-09-05 11:29 | MHC.CLN ---
F/U PO INTAKE 50-100% DIET RX: REGULAR-APPROPRIATE PT RECEIVING ENSURE MAX BID TO PROMOTE WOUND HEALING SUPP PROVIDES 300KCALS, 60G PROTEIN CONTINUE TO MONITOR PO INTAKE CLOSELY
--- NOTE | 2023-09-05 11:40 | MHC.CM.PN ---
Patient has left AMA.
--- NOTE | 2023-09-05 11:45 | HO.WOUND ---
Wound Consult: Followup 47yr old female admitted to [facility] on 08/28/23 01:40 - See progress notes and H&P for detailed history. Pt currently has bed at [facility] for continued care - currently refused and requesting to leave AMA - direct care team and Providers aware. Pt educated on the benefits of SNF and having regular dressing changes - pt educated on the concerns for wound progression and worsening if regular care and antibiotics are not completed - she reports understanding. Waffle cushion provided to Pt for use in wheelchair at time of d/c with education to follow up for wheelchair cushion assessment if available consider through wound clinic. Dressing supplies given to pt and Ostomy supplies given to pt - will reach out to provider for script for supplies in the future. 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 Wound bed does appear to be improving compared to admission photo review. Pain: Pt reports pain and mildly tolerated dressing change Goals of Treatment: Continue with NS moist gauze wrap packing per Dr. Bishop - if pt leaves AMA there is concern for wound care access - she discussed with Addiction clinical team manager and they were able to provide her a list of local mobile wound care locations for her to attend. Pt reported she is aware of location and will be able to get there twice weekly and will be able to have her mother perform dressing changes daily. Left Ischium / Buttocks Etiology: Unstageable Pressure Injury Measurements: 3cm x 1.4cm x 0.2cm Wound Bed: Two areas of tissue loss - Inferior site with adherent yellow slough unable to visualize wound bed - Superior site: red viable moist tissue Drainage / Odor: mild odor noted - small amount of serosang drainage Edges: ?Attached Daya wound: ?Evidence of MASD - Intact light purple hyperpigmented dry tissue remains slow to aroldo throughout Pain: Reports mild discomfort on assessment Goals of Treatment: ?Off Load Pressure and protect from friction with foam and Triad to allow for autolytic debridement and moist wound healing. Follow up in 3-5 days if remains inpatient. If patient is discharged consider follow up with [facility] and or Mobile wound clinic through [facility] for continued care and treatment. Recommendations: 1. Right Ischium / Buttock - Cleanse and irrigate with NS, Pack wound bed with saline moist gauze roll be sure to leave wick for easy removal and less risk of retained dressing. Cover with dry gauze to fill space and complete with Foam dressing and or ABD pads and tape. Change Daily. 2. Left Ischium / Buttocks - Off Load Pressure - Cleanse with NS or Bathing Cloth, pat dry. ?Apply thin layer of Triad to wound bed - only pat and dab no scrub and rub when soiling occurs. Cover with Foam dressing. Change Daily. 3. Turn and Reposition every 2 hours and as needed for patient comfort, when up to chair limit sit time to no greater than 2hr increments and use waffle cushion to aid in off loading pressure. 4. Off Load all bony prominences with use of pillows and or wedges. 5. Monitor for incontinence and moisture control use barrier creams for prevention. 6. Provide adequate and supplemental nutrition. 7. Continue with Low Air Loss Mattress Wound Care Nurse will continue to follow.
--- NOTE | 2023-09-05 11:57 | MHC.RECOVRN ---
This physician underwriter met with patient, after patient reported wanting to leave AMA. Pt denies cravings, withdrawals. Pt states wants to leave. Harm reduction reviewed, resources given to [facility] for wound care support in the community. Pt encouraged to call the [facility] Addiction Recovery Team with any questions/concerns.
[2023-09-05] MEDS: cefTRIAXone sodium 1 GM in 0.9 % Sodium Chloride 50 ML IV (13:17)
--- NOTE | 2023-09-05 15:21 | MHC.CM.PN ---
Per RN, Patient is down getting her PICC and she has decided NOT to leave AMA. CM will follow.
--- NOTE | 2023-09-05 15:35 | HO.PM.IMPN ---
Subjective Subjective Date of Service: 09/05/23 Interval History: was going to sign out AMA but decided against it no fever/chills Review of Systems Review of Systems: Yes all other systems are reviewed and are negative Physical Exam Vital Signs: Vital Signs: Last Vital Signs Temp 98.0 F 09/05/23 11:50 Pulse 75 09/05/23 11:50 Resp 18 09/05/23 11:50 BP 106/71 09/05/23 11:50 Pulse Ox 96 09/05/23 11:50 O2 Del Method Room Air 09/05/23 11:50 O2 Flow Rate 95 09/02/23 00:00 BMI result Body Mass Index 20.8 Gen: in no acute distress HEENT: sclera anicteric, moist mucus membranes Neck: supple, LIJ 3LC CVC Lungs: clear to auscultation bilaterally Heart: regular rate and rhythm, no murmurs Abd: soft, non-tender, stoma functioning Ext: no edema Skin: warm/well-perfused, ulcer of R buttock and ischial tuberosity with granulation tissue per surgeon Neuro: alert and oriented x3, no focal findings Psych: appropriate affect Objective Data Active Medications Acetaminophen (Acetaminophen 325 Mg Tablet) 650 mg PO Q6H PRN PRN Reason: Pain, Mild (Pain Scale 1-3) Last Admin: 09/05/23 14:47 Dose: 650 mg Documented By: DHRUV Ascorbic Acid (Ascorbic Acid 250 Mg Tablet) 250 mg PO BID [facility] Last Admin: 09/05/23 09:07 Dose: Not Given Documented By: DHRUV Non-Admin Reason: Patient Refused Cyclobenzaprine HCl (Cyclobenzaprine Hcl 10 Mg Tablet) 10 mg PO TID PRN PRN Reason: Muscle Spasm Last Admin: 09/05/23 14:47 Dose: 10 mg Documented By: DHRUV Docusate Sodium (Docusate Sodium 100 Mg Capsule) 100 mg PO BID [facility] Last Admin: 09/05/23 09:07 Dose: 100 mg Documented By: DHRUV Ferrous Sulfate (Ferrous Sulfate 324 Mg Tablet.Dr) 324 mg PO BIDWM [facility] Last Admin: 09/05/23 14:55 Dose: Not Given Documented By: DHRUV Non-Admin Reason: Patient Refused Heparin Sodium (Porcine) (Heparin Sodium,Porcine 5,000 Unit/Ml Vial) 5,000 unit SUBCUT Q12H [facility] Last Admin: 09/05/23 14:55 Dose: Not Given Documented By: DHRUV Non-Admin Reason: Patient Refused Ceftriaxone Sodium 1 gm/ (Sodium Chloride) 50 mls @ 100 mls/hr IV Q24H [facility] Last Infusion: 09/05/23 13:48 Dose: Infused Documented By: DHRUV Vancomycin HCl 750 mg/ Sodium (Chloride) 265 mls @ 270 mls/hr IV Q12H [facility] Last Infusion: 09/05/23 13:18 Dose: Infused Documented By: DHRUV Melatonin (Melatonin 3 Mg Tablet) 6 mg PO BEDTIME PRN PRN Reason: Insomnia Last Admin: 09/04/23 19:50 Dose: 6 mg Documented By: MANOLO Methadone HCl (Methadone Hcl 20 Mg/2 Ml Oral.Conc) 80 mg PO DAILY [facility] Last Admin: 09/05/23 09:07 Dose: 80 mg Documented By: DHRUV Morphine Sulfate (Morphine Sulfate 4 Mg/Ml Cartridge) 4 mg IVPUSH Q4H PRN; Protocol PRN Reason: Pain, Severe (Pain Scale 7-10) Last Admin: 09/05/23 14:43 Dose: 4 mg Documented By: DHRUV Multivitamins/Vitamin C (Multivitamin Tablet) 1 tab PO DAILY [facility] Last Admin: 09/05/23 09:13 Dose: Not Given Documented By: DHRUV Non-Admin Reason: Patient Refused Nicotine (Nicotine 21 Mg Patch.Td24) 21 mg TRANSDERMA DAILY [facility] Last Admin: 09/05/23 09:10 Dose: Not Given Documented By: DHRUV Non-Admin Reason: Patient Refused Oxycodone HCl (Oxycodone Hcl Immed Release 5 Mg Tablet) 5 mg PO Q6H PRN PRN Reason: Pain, Severe (Pain Scale 7-10) Last Admin: 09/05/23 09:07 Dose: 5 mg Documented By: DHRUV Pharmacy Consult (Consult Rx Vancomycin Dosing) 1 each MISCELLANE DAILY PRN PRN Reason: Consult order Sodium Chloride (0.9 % Sodium Chloride Flush 3 Ml Syringe) 3 ml IVFLUSH QSHIFT [facility] Last Admin: 09/05/23 14:43 Dose: 3 ml Documented By: DHRUV Sodium Hypochlorite (Sodium Hypochlorite 0.125% 473 Ml Solution) 1 appl TOPICAL DAILY [facility] Last Admin: 09/05/23 09:08 Dose: Not Given Documented By: DHRUV Non-Admin Reason: Medication Discontinued Labs 08/29/23 07:00 09/05/23 05:43 Labs: Laboratory Results - last 24 hr 09/04/23 09/05/23 20:58 05:43 Anion Gap 13 Estim Creat Clear Calc 92.2 Estimated GFR > 60 Random Glucose 112 Calcium 8.4 Random Vancomycin 14.5 L Assessment and Plan (1) Osteomyelitis: Status: Acute Plan d9 47yo homeless wheelchair-bound F [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] with hx polysubstance abuse, opioid use disorder on methadone, mood disorder, thoracic vertebral osteomyelitis s/p C5-T4 fusion and T1-T2 laminectomies 02/12/23, and infected sacral decubitus ulcer who was just admitted here 07/26-07/30/23 for infection of the decibitus ulcer then admitted again 08/07/23 for maggot infestation and osteomyelitis, diverting colostomy due 08/12/23, but then pt signed out AMA 08/15/23 re-admitted 08/28/23 with osteomyelitis/maggot infestation R sacral/ischial decubitus ulcer with maggot infectation and osteomyelitis - continue vancomycin, day 28 [followed by 2 wk of PO doxycycline] - has LIJ 3LC, replace with PICC today - wet to dry dressings with NS daily to right buttock ulcer per Surgery UTI, Klebsiella pneumoniae + Proteus mirabilis - ceftriaxone 09/01-09/07 [switch to cefuroxime upon discharge] - Braun for skin integrity hypoK - repleted LUCINDA - replete tobacco abuse - NRT OUD - methadone VTE ppx - LMWH dispo - STR at [facility] In my clinical judgment, the patient requires continued inpatient hospitalization for the following reasons: IV ABX, placement Time Spent With Patient Time: Total time managing care of this patient today __35__ minutes. Quality Stroke Does the patient have a stroke diagnosis?: No VTE Prior VTE?: No VTE Risk Level:: Medical - moderate - high VTE Device Contraindication: Treatment Not Indicated VTE Drug Contraindication: N/A - Med Ordered
--- NOTE | 2023-09-05 17:10 | HO.PICC ---
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 Following completion of Lapine Protocol the skin and soft tissues were anesthetized with 1% Lidocaine plain. Using ultrasound guidance, left basilic vein access was obtained. Over an 0.018 wire through peel-away sheath, a single 4 FR lumen PASV PICC line was positioned. Catheter length is 39cm internal length, 0cm external length, for a total trimmed length of 39cm. The procedure was performed in S272. Tip verification was performed by Sarthak Brock with Sherlock 3CG. Tip located in SVC. Ultrasound was used to document vein patency and for needle entry. A formal ultrasound picture and cardiac rhythm strip was recorded. Vascular Grievance Coordinator has released the line for use and it is currently dressed with a StatLock, Tegaderm, and CHG disc. Verification has been performed for blood return and line patency. Arm Circumference: 23CM Equipment: Poer PICC SOLO catheter with sherlock 3 CG Tip Catheter Type: 4 FR single lumen PASV PICC Lot #: [id number]
--- NOTE | 2023-09-05 20:08 | PC.NURSE ---
IJ triple lumen cath removed. Dressing applied with xeroform and tegaderm. RN report given to MS nurse. Colostomy intact.
[2023-09-05 21:40] LABS: Vancomycin Trough 15.4 mcg/mL (10.0-20.0)
[2023-09-06 03:16] VITALS: BP 96/65; PULSE 73; RESP 18; TEMP 36.1; O2SAT 97
[2023-09-06] MEDS: Morphine Sulfate 4 MG/ML CARTRIDGE IVPUSH ×5 (04:31→22:32)
[2023-09-06] MEDS: Cyclobenzaprine HCl 10 MG TABLET PO ×2 (05:15→11:54)
[2023-09-06] MEDS: Acetaminophen 325 MG TABLET 650 MG PO (06:04)
[2023-09-06] MEDS: oxyCODONE HCl Immed Release 5 MG TABLET PO ×2 (06:04→12:14)
[2023-09-06 06:26] LABS: Creatinine Clr Calc Pharmacy 92.2; Estimated Glomerular Filt Rate > 60
[2023-09-06 08:00] VITALS: BP 99/62; PULSE 82; RESP 17; TEMP 37.1; O2SAT 94
--- NOTE | 2023-09-06 08:47 | MHC.CM.PN ---
PT LEFT AMA
[2023-09-06] MEDS: 0.9 % Sodium Chloride Flush 3 ML SYRINGE IVFLUSH ×3 (09:49→22:37)
[2023-09-06] MEDS: methADONE HCl 20 MG/2 ML ORAL.CONC 80 MG PO (09:49)
[2023-09-06] MEDS: Nicotine 21 MG PATCH.TD24 TRANSDERMA (09:50)
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
[2023-09-06] MEDS: cefTRIAXone sodium 1 GM in 0.9 % Sodium Chloride 50 ML IV (14:55)
[2023-09-06 16:00] VITALS: BP 105/64; PULSE 79; RESP 18; TEMP 36.9; O2SAT 96
[2023-09-06 19:59] VITALS: BP 112/76; PULSE 76; RESP 18; TEMP 36.6
[2023-09-06] MEDS: Melatonin 3 MG TABLET 6 MG PO (22:32)
[2023-09-06 23:47] VITALS: BP 92/58; PULSE 85; RESP 18; TEMP 36.9; O2SAT 95
[2023-09-07 01:40] VITALS: BP 104/58; PULSE 75
[2023-09-07] MEDS: oxyCODONE HCl Immed Release 5 MG TABLET PO ×4 (01:46→23:51)
[2023-09-07] MEDS: Cyclobenzaprine HCl 10 MG TABLET PO ×3 (01:57→22:12)
[2023-09-07 03:42] VITALS: BP 99/61; PULSE 80; RESP 16; TEMP 36.6; O2SAT 96
[2023-09-07] MEDS: Morphine Sulfate 4 MG/ML CARTRIDGE IVPUSH ×4 (05:07→18:14)
[2023-09-07] MEDS: 0.9 % Sodium Chloride Flush 3 ML SYRINGE IVFLUSH ×2 (09:05→15:29)
[2023-09-07] MEDS: methADONE HCl 20 MG/2 ML ORAL.CONC 80 MG PO (09:06)
[2023-09-07] MEDS: Nicotine 21 MG PATCH.TD24 TRANSDERMA (09:06)
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
[2023-09-07 11:09] LABS: Creatinine Clr Calc Pharmacy 98.9; Estimated Glomerular Filt Rate > 60
[2023-09-07 11:18] LABS: Vancomycin Trough 16.2 mcg/mL (10.0-20.0)
--- NOTE | 2023-09-07 11:26 | HE.PHANOTE ---
VANCO DOSE ADJUSTED BASED ON SCR AND TROUGH OF 16.2 DOSE CONTINUED AT 750 Q8H. NEXT TROUGH 09/08 @0900
[2023-09-07 12:00] VITALS: BP 103/57; PULSE 77; RESP 16; TEMP 36.6; O2SAT 94
[2023-09-07] MEDS: cefTRIAXone sodium 1 GM in 0.9 % Sodium Chloride 50 ML IV (12:58)
[2023-09-07 15:52] VITALS: BP 105/67; PULSE 75; RESP 18; TEMP 36.6; O2SAT 94
[2023-09-07 20:00] VITALS: BP 114/69; PULSE 82; RESP 18; TEMP 36.7; O2SAT 93
[2023-09-07] MEDS: Acetaminophen 325 MG TABLET 650 MG PO (22:11)
[2023-09-07] MEDS: Morphine Sulfate 4 MG/ML CARTRIDGE IM (22:12)
[2023-09-07 23:55] VITALS: BP 113/71; PULSE 86; RESP 18; TEMP 36.4; O2SAT 96
[2023-09-08 04:00] VITALS: BP 101/61; PULSE 74; RESP 18; TEMP 36.3; O2SAT 96
[2023-09-08] MEDS: Morphine Sulfate 4 MG/ML CARTRIDGE IVPUSH ×3 (05:13→16:08)
[2023-09-08 06:50] LABS: Creatinine Clr Calc Pharmacy 97.2; Estimated Glomerular Filt Rate > 60
[2023-09-08 07:49] VITALS: BP 96/64; PULSE 77; RESP 16; TEMP 36; O2SAT 97
[2023-09-08] MEDS: oxyCODONE HCl Immed Release 5 MG TABLET PO (07:52)
[2023-09-08] MEDS: Nicotine 21 MG PATCH.TD24 TRANSDERMA (07:53)
[2023-09-08] MEDS: Docusate Sodium 100 MG CAPSULE PO (07:53)
[2023-09-08] MEDS: methADONE HCl 20 MG/2 ML ORAL.CONC 80 MG PO (07:54)
[2023-09-08] MEDS: 0.9 % Sodium Chloride Flush 3 ML SYRINGE IVFLUSH (07:54)
[2023-09-08 10:15] LABS: Vancomycin Random 14.3 mcg/mL (15-20)
--- NOTE | 2023-09-08 10:47 | MHC.CLN ---
F/U PO INTAKE 50-100%, WITH MOST MEALS 100% X 3 DAYS. DIET RX: REGULAR-APPROPRIATE. RECEIVING ENSURE MAX BID TO PROMOTE WOUND HEALING. SUPPLEMENT PROVIDES 300 KCALS, 60 G PROTEIN. CONTINUE TO MONITOR PO INTAKE CLOSELY.
[2023-09-08] MEDS: Cyclobenzaprine HCl 10 MG TABLET PO (10:55)
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
[2023-09-08 12:00] VITALS: BP 100/69; PULSE 80; RESP 16; TEMP 36.4; O2SAT 96
[2023-09-08] MEDS: cefTRIAXone sodium 1 GM in 0.9 % Sodium Chloride 50 ML IV (13:19)
[2023-09-08] MEDS: oxyCODONE HCl Immed Release 5 MG TABLET 10 MG PO (13:19)
--- NOTE | 2023-09-08 14:41 | HO.PM.IMPN ---
Subjective Subjective Date of Service: 09/08/23 Interval History: reportedly has bed at [facility] awaiting [facility] approval which was requested 09/05/23 Review of Systems Review of Systems: Yes all other systems are reviewed and are negative Physical Exam Vital Signs: Vital Signs: Last Vital Signs Temp 97.6 F 09/08/23 12:00 Pulse 80 09/08/23 12:00 Resp 16 09/08/23 12:00 BP 100/69 09/08/23 12:00 Pulse Ox 96 09/08/23 12:00 O2 Del Method Room Air 09/08/23 12:00 O2 Flow Rate 95 09/02/23 00:00 BMI result Body Mass Index 20.8 Gen: in no acute distress HEENT: sclera anicteric, moist mucus membranes Neck: supple, LUE PICC Lungs: clear to auscultation bilaterally Heart: regular rate and rhythm, no murmurs Abd: soft, non-tender, stoma functioning Ext: no edema Skin: warm/well-perfused, ulcer of R buttock and ischial tuberosity with granulation tissue Neuro: alert and oriented x3, no focal findings Psych: appropriate affect Objective Data Active Medications Acetaminophen (Acetaminophen 325 Mg Tablet) 650 mg PO Q6H PRN PRN Reason: Pain, Mild (Pain Scale 1-3) Last Admin: 09/07/23 22:11 Dose: 650 mg Documented By: KAYLEY Ascorbic Acid (Ascorbic Acid 250 Mg Tablet) 250 mg PO BID [facility] Last Admin: 09/08/23 08:02 Dose: Not Given Documented By: NORMA Non-Admin Reason: Patient Refused Cyclobenzaprine HCl (Cyclobenzaprine Hcl 10 Mg Tablet) 10 mg PO TID PRN PRN Reason: Muscle Spasm Last Admin: 09/08/23 10:55 Dose: 10 mg Documented By: NORMA Docusate Sodium (Docusate Sodium 100 Mg Capsule) 100 mg PO BID [facility] Last Admin: 09/08/23 07:53 Dose: 100 mg Documented By: NORMA Ferrous Sulfate (Ferrous Sulfate 324 Mg Tablet.) 324 mg PO BIDWM [facility] Last Admin: 09/08/23 08:02 Dose: Not Given Documented By: NORMA Non-Admin Reason: Patient Refused Heparin Sodium (Porcine) (Heparin Sodium,Porcine 5,000 Unit/Ml Vial) 5,000 unit SUBCUT Q12H [facility] Last Admin: 09/08/23 05:14 Dose: Not Given Documented By: CATIA Non-Admin Reason: Patient Refused Ceftriaxone Sodium 1 gm/ (Sodium Chloride) 50 mls @ 100 mls/hr IV Q24H [facility] Last Infusion: 09/08/23 13:54 Dose: Infused Documented By: NORMA Vancomycin HCl 750 mg/ Sodium (Chloride) 265 mls @ 270 mls/hr IV Q12H [facility] Last Infusion: 09/08/23 13:08 Dose: Infused Documented By: NORMA Melatonin (Melatonin 3 Mg Tablet) 6 mg PO BEDTIME PRN PRN Reason: Insomnia Last Admin: 09/06/23 22:32 Dose: 6 mg Documented By: DONNA Methadone HCl (Methadone Hcl 20 Mg/2 Ml Oral.Conc) 80 mg PO DAILY [facility] Last Admin: 09/08/23 07:54 Dose: 80 mg Documented By: NORMA Morphine Sulfate (Morphine Sulfate 4 Mg/Ml Cartridge) 4 mg IVPUSH Q4H PRN; Protocol PRN Reason: Pain, Severe (Pain Scale 7-10) Last Admin: 09/08/23 09:45 Dose: 4 mg Documented By: NORMA Multivitamins/Vitamin C (Multivitamin Tablet) 1 tab PO DAILY [facility] Last Admin: 09/08/23 08:02 Dose: Not Given Documented By: NORMA Non-Admin Reason: Patient Refused Nicotine (Nicotine 21 Mg Patch.Td24) 21 mg TRANSDERMA DAILY [facility] Last Admin: 09/08/23 07:53 Dose: 21 mg Documented By: NORMA Oxycodone HCl (Oxycodone Hcl Immed Release 5 Mg Tablet) 10 mg PO Q6H PRN PRN Reason: Pain, Moderate(Pain Scale 4-6) Last Admin: 09/08/23 13:19 Dose: 10 mg Documented By: NORMA Sodium Chloride (0.9 % Sodium Chloride Flush 3 Ml Syringe) 3 ml IVFLUSH QSHIFT [facility] Last Admin: 09/08/23 07:54 Dose: 3 ml Documented By: NORMA Sodium Hypochlorite (Sodium Hypochlorite 0.125% 473 Ml Solution) 1 appl TOPICAL DAILY [facility] Last Admin: 09/08/23 08:03 Dose: Not Given Documented By: NORMA Non-Admin Reason: no longer using Labs 08/29/23 07:00 09/08/23 06:02 Labs: Laboratory Results - last 24 hr 09/08/23 09/08/23 06:02 09:44 Estim Creat Clear Calc 97.2 Estimated GFR > 60 Random Vancomycin 14.3 L Assessment and Plan (1) Osteomyelitis: Status: Acute Plan d12 47yo homeless wheelchair-bound F [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] with hx polysubstance abuse, opioid use disorder on methadone, mood disorder, thoracic vertebral osteomyelitis s/p C5-T4 fusion and T1-T2 laminectomies 02/12/23, and infected sacral decubitus ulcer who was just admitted here 07/26-07/30/23 for infection of the decibitus ulcer then admitted again 08/07/23 for maggot infestation and osteomyelitis, diverting colostomy due 08/12/23, but then pt signed out AMA 08/15/23 re-admitted 08/28/23 with sepsis due to infected sacral/ischial decubitus ulcer with osteomyelitis and maggot infestation R sacral/ischial decubitus ulcer with maggot infectation and osteomyelitis - continue vancomycin, day [then followed by 2 wk of PO doxycycline], trough therapeutic; weekly troughs + Cr while on the medication - PICC placed 09/05/23 - wet to dry dressings with NS daily to right buttock ulcer per Surgery, outpt Gen Surg + Wound Care f/u UTI, Klebsiella pneumoniae + Proteus mirabilis - ceftriaxone 09/01-09/08 completed 7d - Braun for skin integrity hypoK - repleted LUCINDA - replete tobacco abuse - NRT OUD - methadone VTE ppx - LMWH dispo - STR at [facility], has bed as of now but apparently now awaiting EC to approve level of care In my clinical judgment, the patient requires continued inpatient hospitalization for the following reasons: placement, avoidable delay Time Spent With Patient Time: Total time managing care of this patient today ___30_ minutes. Quality Stroke Does the patient have a stroke diagnosis?: No VTE Prior VTE?: No VTE Risk Level:: Medical - moderate - high VTE Device Contraindication: Treatment Not Indicated VTE Drug Contraindication: N/A - Med Ordered
[2023-09-08 15:10] VITALS: BP 105/71; PULSE 87; RESP 18; TEMP 36.6; O2SAT 96
--- NOTE | 2023-09-08 16:00 | MHC.CM.PN ---
pt to [facility] today at 6
--- NOTE | 2023-09-08 16:02 | MHC.CM.PN ---
mother vladimir notified of dc [phone]
[2023-09-08] MEDS: Ferrous Sulfate 324 MG TABLET.DR PO (16:11)
--- NOTE | 2023-09-08 16:36 | PC.NURSE ---
patient upset ,refusing to be discharged to facility,asked clinical case manager to ,asked DR. Shah to speak with with patient,Dr. Shah spoke with patient and patient agreed to be discharged as planned.Patient upset stating clinical case manager called her mother and they not suppose to,nursing liquefaction supervisor notified
[2023-09-08 16:54] VITALS: BP 114/76; PULSE 82
[2023-09-08] MEDS: LORazepam 2 MG/ML VIAL 1 MG IVPUSH (16:56)
--- NOTE | 2023-09-08 17:00 | PC.NURSE ---
Patient very anxious about her discharge,Dr. Shah was notified,Lorazepam was administered as ordered
--- NOTE | 2023-09-17 08:28 | P.CDIM_ITS ---
PROVIDER RESPONSE TEXT: To clarify, the appropriate diagnosis supported by the clinical indicators: Excisional debridement ischial decubitus ulcer: excisional debridement of skin and subcutaneous tissu e QUERY TEXT: PHYSICIAN'S DOCUMENTATION REQUEST Date of Query: 09/12/2023 11:32 AM EDT Patient Name: Radhika Ch Admit Date: 08/28/2023 Dear Stephen Bishop, A review of the medical record indicates additional documentation may be needed. Please review below and update the documentation accordingly. Clinical Indicators: 08/29 Surgical note: I proceeded to do more sharp excisional debridement of the ulcer on the right isc hial tuberosity with Mohr scissors. Applied wet to dry dressings on both the ischial tuberosity and buttock areas. Continue wound care daily. Could you provide, in the Progress Notes, further clarification regarding the type and nature of the debridement? Excisional debridement ischial decubitus ulcer skin, subcutaneous tissue and fascia, muscles, bone, etc. Other (explain)Clinically unable to determine (explain)Thank you, Rosenda Mukherjee, CCS, CDIS Use of terms such as suspected, likely, concern for, or probable (associated with a specific diagnosi s that is being evaluated, monitored, or treated as if it exists) are acceptable and can be coded in the inpatient se tting, when documented at the time of discharge. Please use your independent medical judgment in providing your response. THIS QUERY IS PART OF THE PERMANENT MEDICAL RECORD
--- NOTE | 2023-09-21 08:48 | P.CDIM_ITS ---
PROVIDER RESPONSE TEXT: To clarify, the appropriate diagnosis supported by the clinical indicators: Acute osteomyelitis: acute sacral QUERY TEXT: PHYSICIAN'S DOCUMENTATION REQUEST Date of Query: 09/12/2023 11:45 AM EDT Patient Name: Radhika Ch Admit Date: 08/28/2023 Dear Renetta Shah, A review of the medical record indicates additional documentation may be needed. Please review below and update the documentation accordingly. Clinical Indicators: Notes: 08/28/23 - Patient returns here today with infection decub ulcer with maggot noted. Was admitte d on 07/26-07/30 for infection of the decubitus ulcer was to be discharged with PICC line for 6 weeks but left AMA. Today with worsening of infected decubi tus ulcer. Excisional debridement's performed. Hospital course by problem: R Sacral/ischial decubitus ulcer with maggot infestation and osteomyelitis. Continue Vancomycin via PICC line placed 09/05/23. Doxycycline after that for 14 days. Based on the above, please clarify in the Progress Notes further specificity regarding the acuity of Osteomyelitis. Acute osteomyelitis sacral, ischial etc. Subacute osteomyelitis Chronic osteomyelitis Chronic multifocal osteomyelitis Other (explain)Clinically unable to determine (explain)Thank you, Rosenda Mukherjee, CCS, CDIS Use of terms such as suspected, likely, concern for, or probable (associated with a specific diagnosi s that is being evaluated, monitored, or treated as if it exists) are acceptable and can be coded in the inpatient se tting, when documented at the time of discharge. Please use your independent medical judgment in providing your response. THIS QUERY IS PART OF THE PERMANENT MEDICAL RECORD
== END 2023-09-08 19:00 | disposition skilled nursing facility (03) | DRG 720 ==
LOC: HO.ED 08-28 00:29 → HO.EDOVER 08-28 01:46 → HO.IMC 08-28 06:26 → HO.S3 09-05 20:19
PROVIDERS: Hospitalist; Surgery; Admitting Provider Internal Medicine; Emergency Provider Internal Medicine; Visit Provider Family Medicine
DX: A41.9 Sepsis, unspecified organism (principal); L89.314 Pressure ulcer of right buttock, stage 4; G82.20 Paraplegia, unspecified; L89.219 Pressure ulcer of right hip, unspecified stage; E44.0 Moderate protein-calorie malnutrition; F11.20 Opioid dependence, uncomplicated; B87.1 Wound myiasis; D50.9 Iron deficiency anemia, unspecified; E87.6 Hypokalemia; N39.0 Urinary tract infection, site not specified; Z20.822 Contact with and (suspected) exposure to COVID-19; Z59.02 Unsheltered homelessness; B96.1 Klebsiella pneumoniae [K. pneumoniae] as the cause of diseases classified elsewhere; B96.4 Proteus (mirabilis) (morganii) as the cause of diseases classified elsewhere; Z68.20 Body mass index [BMI] 20.0-20.9, adult; M46.28 Osteomyelitis of vertebra, sacral and sacrococcygeal region; Z99.3 Dependence on wheelchair; Z86.14 Personal history of Methicillin resistant Staphylococcus aureus infection; Z93.3 Colostomy status; Z98.1 Arthrodesis status; Z91.148 Patient's other noncompliance with medication regimen for other reason; Z87.891 Personal history of nicotine dependence; Z79.899 Other long term (current) drug therapy
CPT/HCPCS: 36415; 36573; 71045; 80048; 80053; 80202; 81001; 82565; 83605; 83735; 85025; 85027; 85652; 86140; 86850; 86900; 86901; 86920; 86922; 87040; 87086; 87088; 87186; 87635; 93005; 97162; 99285; C1751; C1758; J0696; J1643; J2060; J2270; J2543; J3370; J3371; P9016

== ENCOUNTER → 2023-08-28 01:40 | Outpatient (BNV) | payer MEDICAID, SELFPAY | PROVIDERS: Admitting Provider Internal Medicine; Emergency Provider Internal Medicine; Visit Provider Hospitalist | DX: M86.18 Other acute osteomyelitis, other site (principal); E44.0 Moderate protein-calorie malnutrition; B87.9 Myiasis, unspecified; A41.9 Sepsis, unspecified organism; D63.8 Anemia in other chronic diseases classified elsewhere; E87.6 Hypokalemia; N39.0 Urinary tract infection, site not specified; Z93.3 Colostomy status | CPT/HCPCS: 99223; 99232; 99233; 99239; 99499 ==

== ENCOUNTER → 2023-08-28 01:40 | Outpatient (BNV) | payer MEDICAID, SELFPAY | PROVIDERS: Admitting Provider Internal Medicine; Emergency Provider Internal Medicine; Visit Provider Physician Assistant Surgical | DX: L89.894 Pressure ulcer of other site, stage 4 (principal) | CPT/HCPCS: 99024 ==

== ENCOUNTER 2023-10-04 19:56 | Inpatient (IN) | payer MEDICAID, SELFPAY ==
--- NOTE | ~2023-10-04 | CT_ITS ---
EXAMINATION: CT ABDOMEN AND PELVIS WITHOUT CONTRAST CLINICAL INFORMATION: Osteomyelitis right pelvis. COMPARISON: CT pelvis 08/07/2023. CT abdomen/pelvis 01/22/2023. TECHNIQUE: Multidetector volumetric imaging was performed from the superior aspect of the liver through the pubic symphysis. Sagittal and coronal reformatted images were obtained on the technologist's workstation. This CT examination was performed using dose optimization techniques as appropriate, variously including the following: *Automated exposure control *Adjustment of mA and/or kV according to patient size (this includes techniques or standardized protocols for targeted exams where dose is matched to indication/reason for exam; i.e. extremities or head) *Use of iterative reconstruction technique DLP: 287 mGy-cm FINDINGS: Evaluation is very limited secondary to patient's motion and rotation. LUNG BASES: Limited evaluation of pulmonary nodules. No focal consolidation or pleural effusion. LIVER, GALLBLADDER, AND BILIARY TREE: Stable hepatomegaly. Otherwise, noncontrast liver is normal in shape and attenuation without discrete focal lesion in this limited noncontrast examination. Normal CT appearance of the gallbladder. No biliary ductal dilatation. PANCREAS: Limited noncontrast examination. No peripancreatic free fluid or fat stranding. No main duct dilatation. SPLEEN: Unremarkable. ADRENAL GLANDS: Stable mild asymmetric prominence of the left adrenal gland. KIDNEYS AND URETERS: The kidneys are normal in size, shape, and attenuation. No hydronephrosis, hydroureter, or calculi seen. No perinephric stranding. BLADDER: Unremarkable. GASTROINTESTINAL TRACT: Limited evaluation due to motion. Duodenal diverticulum. The stomach and the small bowel are nondilated. The appendix is not visualized, although there are no indirect inflammatory changes to suspect acute appendicitis. No significant pericolonic fat stranding or free fluid. No evidence of bowel obstruction. ABDOMINAL WALL: New left lower abdominal wall hernia containing nonobstructive loops of bowel with trace amount of free fluid in the hernial sac. The sac measures approximately 4 cm. LYMPH NODES: Limited evaluation due to motion, paucity of abdominal fat and lack of IV contrast. No bulky adenopathy. VASCULAR: Atherosclerotic disease. Normal caliber abdominal aorta. PELVIC VISCERA: Limited evaluation due to motion, no discrete abnormality. OSSEOUS STRUCTURES: Redemonstration of large ulcer in the right gluteal region with increased cortical irregularity of the right ischial tuberosity compared to 08/07/2023. CT/CT abdomen pelvis wo IV con IMPRESSION: Evaluation is very limited due to patient's motion and lack of IV contrast. 1. Redemonstration of large ulcer in the right gluteal region with increased cortical irregularity of the ischial tuberosity compared to most recent prior worrisome for worsening osteomyelitis. 2. New left lower abdominal wall hernia containing nonobstructive loops of bowel. There is trace amount of free fluid in the hernial sac, recommend correlation with physical examination for incarceration/infection.
[2023-10-04 20:09] VITALS: BP 138/90; PULSE 108; O2SAT 98
[2023-10-04 20:10] VITALS: BMI 26.6
--- NOTE | 2023-10-04 21:46 | MHC.EDTECH ---
t/w attempted labs x2. unsuccessful. pt known very hard stick. rn aware
--- NOTE | 2023-10-04 22:22 | ED_ITS ---
HPI - General Adult General Chief complaint: General Medical Stated complaint: open wound with maggots Time Seen by Provider: 10/04/23 22:16 Source: patient and EMS Mode of arrival: EMS Limitations: no limitations History of Present Illness HPI narrative: a 47-year-old female homeless brought in by EMS after was found in the street complaining of chronic back wound. Patient is a poor historian not giving clear history with history of polysubstance abuse on methadone, mood disorder, infected sacral decubitus ulcer, wheelchair bound. Patient is sleeping and refusing to give history in the ED. Related Data Home Medications Medication Instructions Recorded Confirmed methadone 10 mg/mL oral concentrate 80 mg PO DAILY 07/28/23 08/09/23 Previous Rx's Medication Instructions Recorded acetaminophen 325 mg tablet 650 mg (2 x 325 mg) PO Q6H PRN 08/15/23 Pain, Mild (Pain Scale 1-3) #60 tabs colostomy bags 3 #30 ea 08/15/23 docusate sodium 100 mg capsule 100 mg PO BID #180 caps 08/15/23 (Colace) ferrous sulfate 324 mg (65 mg 324 mg PO DAILY #90 tabs 08/15/23 iron) tablet,delayed release multivitamin 1 tab PO DAILY #90 tabs 08/15/23 nicotine 21 mg/24 hr daily 21 mg transdermal DAILY #30 ea 08/15/23 transdermal patch doxycycline hyclate 100 mg capsule 100 mg PO BID #56 caps 09/05/23 nicotine 21 mg/24 hr daily 21 mg transdermal DAILY #30 ea 09/05/23 transdermal patch oxycodone 5 mg tablet 10 mg (2 x 5 mg) PO Q6H PRN Pain, 09/08/23 Moderate(Pain Scale 4-6) #12 tabs Allergies Allergy/AdvReac Type Severity Reaction Status Date / Time codeine [Codeine] Allergy Intermediate ITCHING, Verified 08/15/23 23:00 VOMTING, THROAT SWELLS tramadol [TRAMADOL] Allergy Intermediate BODY Verified 08/15/23 23:00 SWELLING Review of Systems 2 Review of Systems: Yes Unobtainable due to mental condition PMFSH Past Medical History Medical History Mood disorder History of osteomyelitis (~08/15/23) Cocaine use disorder Opioid use disorder Anemia Polysubstance (including opioids) dependence, daily use Drug abuse in remission Asthma Surgical History Hx of surgical procedure (~08/12/23) Colostomy in place History of spinal fusion Family History Family History Other Opioid use disorder Social History Social History Household Members: Other Household Members Other:: homeless Housing: Homeless Housing Other:: homeless Do you presently have visiting nurse or other home services: No Unable to assess alcohol history related to: Refusing to respond Alcohol intake: never Patient Tobacco Use Status: Former Tobacco user Tobacco use type: Cigarette Cigarettes Per Day: 2 Use of substances other than those prescribed or required for medical reasons: Refusing to respond Substance Use Type: Former Substance User Advance Directives: Yes Advance Directives on File: Yes Advance Directives Date on File: 06/16/23 service: No Physical Exam ED Vital Signs: Vital Signs - 24 hr 10/05/23 00:32 Temperature 98.3 F Pulse Rate 99 Respiratory Rate 17 Blood Pressure 127/91 H Pulse Oximetry 97 Oxygen Delivery Method Room Air BMI result Body Mass Index 26.6 Vital signs have been reviewed and appear to be correct. Blood pressure elevated. Heart rate normal. Respiratory rate normal. Temperature normal. Oxygen saturation normal. Appearance: Alert. Oriented X3. No acute distress. Head: Normal external exam. Normocephalic. Atraumatic. No Jason signs noted. No raccoon eyes noted Eyes: PERRLA. EOMI. Conjunctiva and sclera normal. Eyelids normal. ENT: TM's Normal. Pharynx normal. Uvula midline. Moist mucous membranes. No trismus noted. No drooling noted. No muffled voice noted. Neck: Normal inspection. Neck supple. FROM. No adenopathy. Thyroid Normal. No meningeal signs. No neck mass noted. CVS: Normal heart rate and rhythm. Heart sound normal. No murmurs noted. Pulses normal throughout. Respiratory: No respiratory distress. Painless inspiration. Breath sounds normal. No wheezes/rales/rhonchi noted. Chest nontender. No accessory muscle usage noted or decreased air movement noted. Abdomen: Soft and nontender. Bowel sounds normal in all 4 quadrants. No distention noted. No organomegaly noted. No visible injury noted. Back: No CVA tenderness. Full range of motion noted. Skin: As per picture, extensive cellulitis in length the open wound to the left buttock. Extremities: No lower extremity edema. Extremities exhibit normal range of motion. Extremities nontender. Neuro: Oriented X 3. Cranial nerve exam: II-XII are grossly intact No motor deficit. No sensory deficit. Reflexes normal. Course Reevaluation(s) Reevaluation #1: 47 yo female homeless non compliant with history of IV drug abuse and decubitus ulcer with osteomyelitis of right ischial tuberisty with apparent worsening on the CT patient with history of MRSA. patient is meeting criteria of SIRs but no severe sepsis or septic shock. patient had a history of MRSA sensitive to vancomycin. Will start on Zosyn and vancomycin and admit admit for further infectious disease consultation. Hypokalemia will replete potassium. Time: 00:32 Medications Administered Discontinued Medications Generic Name Dose Route Start Last Admin Trade Name Freq PRN Reason Stop Dose Admin Piperacillin Sod/Tazobactam 50 mls @ 100 mls/hr 10/05/23 00:28 10/05/23 00:36 Sod 3.375 gm/ Sodium Chloride IV 10/05/23 00:57 100 mls/hr ONCE ONE Administration Medical Decision Making Differential Diagnosis Differential Diagnoses: The differential diagnosis associated with the presentation includes ( Severe anemia, electrolyte abnormality, sepsis, cellulitis of the osteomyelitis.) Admission/Observation Consideration of admission/observation: Escalation of care including admission/observation considered Consult Healthcare Provider Management of the patient was discussed with: Hospitalist (Dr. Parks) Lab Data [facility] Lab Attestation statement: I reviewed the patient's lab results. 10/05/23 00:07 10/05/23 00:07 Labs: Lab Results 10/05/23 Range/Units 00:07 WBC 12.1 H (4.8-10.8) X10*3/uL RBC 4.32 D (4.20-5.50) X10*6/uL Hgb 10.3 L (12.0-16.0) g/dl Hct 34.0 L (37.0-47.0) % MCV 78.7 L (80.0-98.0) fL MCH 23.8 L (27.0-33.0) pg MCHC 30.3 L (31.0-35.0) g/dl RDW 17.7 H (11.0-16.0) % Plt Count 529 H (160-400) X10*3/uL MPV 9.1 L (9.4-12.3) fL Absolute Nucleated RBC 0.000 (0.0-0.012) X10*3/uL Nucleated RBC % (auto) 0.0 (0.0-0.2) /100WBC Sodium 140 (135-145) mmol/L Potassium 3.0 L (3.3-5.1) mmol/L Chloride 103 (96-108) mmol/L Carbon Dioxide 27 (22-29) mmol/L Anion Gap 13 (12-20) BUN 12 (9-16) mg/dL Creatinine 0.58 (0.5-1.4) mg/dL Estim Creat Clear Calc 109.8 Estimated GFR > 60 Random Glucose 109 (60-115) mg/dL Lactic Acid 1.4 (0.5-2.0) mmol/L Calcium 9.1 D (8.4-10.2) mg/dL Total Bilirubin 0.3 (0.0-1.0) mg/dL AST 17 (5-31) U/L ALT 10 (0-31) U/L Alkaline Phosphatase 104 (39-117) U/L Total Protein 8.2 H (6.5-8.0) g/dL Albumin 3.3 L (3.5-5.0) g/dL Independent Interpretation I performed an independent interpretation of an: CT Scan (1. Redemonstration of large ulcer in the right gluteal region with increased cortical irregularity of the ischial tuberosity compared to most recent prior worrisome for worsening osteomyelitis. 2. New left lower abdominal wall hernia containing nonobstructive loops of bowel. There is trace amount ) Radiology Impression Discussion of test interpretation with radiology: I have reviewed the radiologist's reading. Social Determinants Patient?s care significantly limited by Social Determinants of Health including: Inadequate housing Discharge Plan Discharge Clinical Impression: Decubitus ulcer, Hypokalemia Osteomyelitis Qualifiers: Laterality: right Patient Disposition: Admitted As Inpatient
--- NOTE | 2023-10-04 22:30 | PC.NURSE ---
pt arrived to the ER via EMS w/ complaints of maggots to her chronic wounds and a leaking ostomy appliance. pt has chronic wounds to right heel, mepilex in place. chronic wounds also noted to coccyx. maggots are noted to be in coccyx wounds. foul odor noted. pt arrived covered in feces and urine. clothes were saturated in urine, feces, and wound exudate. while attempting to remove clothes pt requested that clothes all be thrown away due to the amount of bugs on them . tech and this RN cut clothes off of patient. pt noted to have maggots crawling on her. pt was wiped down w/ warm wipes. pericare provided. new colostomy appliance placed. wounds on coccyx left open to be assessed by
--- NOTE | 2023-10-04 22:37 | PC.NURSE ---
this RN and 2 techs attempted to draw labs, unsuccessful at this time.
[2023-10-05] VITALS (11 sets, daily range): BP systolic 96–127; BP diastolic 61–91; PULSE 75–103; RESP 14–20; TEMP 36.5–37.1; O2SAT 96–99
[2023-10-05 00:15] LABS: Hemoglobin 10.3 g/dl (12.0-16.0); Mean Corpuscular HGB Conc 30.3 g/dl (31.0-35.0); Mean Corpuscular Hemoglobin 23.8 pg (27.0-33.0); Mean Corpuscular Volume 78.7 fL (80.0-98.0); Mean Platelet Volume 9.1 fL (9.4-12.3); Platelet Count 529 X10*3/uL (160-400); Red Blood Count 4.32 X10*6/uL (4.20-5.50); Red Cell Distribution Width 17.7 % (11.0-16.0); White Blood Count 12.1 X10*3/uL (4.8-10.8)
[2023-10-05 00:27] LABS: Lactic Acid 1.4 mmol/L (0.5-2.0)
[2023-10-05 00:31] LABS: Alanine Aminotransferase 10 U/L (0-31); Albumin Level 3.3 g/dL (3.5-5.0); Alkaline Phosphatase 104 U/L (39-117); Anion Gap 13 (12-20); Aspartate Amino Transferase 17 U/L (5-31); Bilirubin Total 0.3 mg/dL (0.0-1.0); Blood Urea Nitrogen 12 mg/dL (9-16); Calcium 9.1 mg/dL (8.4-10.2); Carbon Dioxide 27 mmol/L (22-29); Chloride 103 mmol/L (96-108); Creatinine Clr Calc Pharmacy 109.8; Estimated Glomerular Filt Rate > 60; Glucose Random 109 mg/dL (60-115); Sodium 140 mmol/L (135-145); Total Protein 8.2 g/dL (6.5-8.0)
[2023-10-05] MEDS: Piperacillin Sodium/Tazobactam 3.375 GM in 0.9 % Sodium Chloride 50 ML IV (00:36)
--- NOTE | 2023-10-05 00:45 | P.HPHOSP_ITS ---
History of Present Illness Date of Service: 10/05/23 Chief Complaint: Back pain This is a 47-year-old female, homeless, wheelchair-bound (paraplegic) with history of polysubstance use disorder, opioid use disorder on methadone, history of MRSA bacteremia, mood disorder, status post colostomy, thoracic vertebral osteomyelitis s/p C5-T4 fusion and T1-T2 laminectomies 02/12/23, ischial osteomyelitis and infected ischial decubitus who presents to the emergency department for evaluation of back pain. Of note, patient was recently admitted and discharged on 09/08 with right sacral/ischial decubitus ulcer with maggot infestation and osteomyelitis and UTI. Patient was discharged to SNF for STR with IV vancomycin followed by p.o. doxycycline. Patient is a poor historian and unable to provide any history. She is not willing to talk and only complains of back pain. Patient is lethargic and states she only wants to sleep. Unable to obtain review of systems. Review of Systems 2 Review of Systems: Yes Unobtainable due to mental status PMFSH Medical History Mood disorder History of osteomyelitis (~08/15/23) Cocaine use disorder Opioid use disorder Anemia Polysubstance (including opioids) dependence, daily use Drug abuse in remission Asthma Family History Other Opioid use disorder Surgical History Hx of surgical procedure (~08/12/23) Colostomy in place History of spinal fusion Social History Household Members: Other Household Members Other:: homeless Housing: Homeless Housing Other:: homeless Do you presently have visiting nurse or other home services: No Unable to assess alcohol history related to: Refusing to respond Alcohol intake: never Patient Tobacco Use Status: Former Tobacco user Tobacco use type: Cigarette Cigarettes Per Day: 2 Use of substances other than those prescribed or required for medical reasons: Refusing to respond Substance Use Type: Former Substance User Advance Directives: Yes Advance Directives on File: Yes Advance Directives Date on File: 06/16/23 service: No Meds Allergies Allergy/AdvReac Type Severity Reaction Status Date / Time codeine [Codeine] Allergy Intermediate ITCHING, Verified 08/15/23 23:00 VOMTING, THROAT SWELLS tramadol [TRAMADOL] Allergy Intermediate BODY Verified 08/15/23 23:00 SWELLING Active Medications: Current Medications Piperacillin Sod/Tazobactam (Sod 3.375 gm/ Sodium Chloride) 50 mls @ 100 mls/hr IV ONCE ONE Stop: 10/05/23 00:57 Last Admin: 10/05/23 00:36 Dose: 100 mls/hr Vancomycin HCl 1,000 mg/Vancomycin HCl 750 mg/ Sodium Chloride 535 mls @ 267.5 mls/hr IV ONCE ONE Stop: 10/05/23 02:44 Pharmacy Consult (Consult Rx Vancomycin Dosing) 1 each MISCELLANE DAILY PRN PRN Reason: Consult order Home Medications Medication Instructions Recorded Confirmed Last Taken Type methadone 10 mg/mL oral concentrate 80 mg PO DAILY 07/28/23 08/09/23 08/07/23 History Physical Exam 2 Vital Signs and Narrative: Vital Signs: Last Vital Signs Temp 98.3 F 10/05/23 00:32 Pulse 99 10/05/23 00:32 Resp 17 10/05/23 00:32 BP 127/91 H 10/05/23 00:32 Pulse Ox 97 10/05/23 00:32 O2 Del Method Room Air 10/05/23 00:32 BMI result Body Mass Index 26.6 Middle-aged female lying in bed in no distress Neck supple, no JVD Regular rate and rhythm, S1-S2 heard Regular breath sounds bilaterally, no wheezing or crackles appreciated Abdomen soft nontender, no guarding, no rigidity Patient is lethargic/drowsy and only eye opening to verbal stimulus, unwilling to take part in conversation, unable to assess orientation Skin: Right ischial ulcer, unstageable with serosanguineous foul-smelling drainage and erythema Results Labs 10/05/23 00:07 10/05/23 00:07 Labs: Laboratory Results - last 24 hr 10/05/23 00:07 MCV 78.7 L MCH 23.8 L MCHC 30.3 L RDW 17.7 H Plt Count 529 H MPV 9.1 L Absolute Nucleated RBC 0.000 Nucleated RBC % (auto) 0.0 Anion Gap 13 Estim Creat Clear Calc 109.8 Estimated GFR > 60 Random Glucose 109 Lactic Acid 1.4 Calcium 9.1 D Total Bilirubin 0.3 AST 17 ALT 10 Alkaline Phosphatase 104 Total Protein 8.2 H Albumin 3.3 L Imaging Radiologist's Impressions: Impressions Abdomen/Pelvis CT 10/04/23 23:55 IMPRESSION: Evaluation is very limited due to patient's motion and lack of IV contrast. 1. Redemonstration of large ulcer in the right gluteal region with increased cortical irregularity of the ischial tuberosity compared to most recent prior worrisome for worsening osteomyelitis. 2. New left lower abdominal wall hernia containing nonobstructive loops of bowel. There is trace amount of free fluid in the hernial sac, recommend correlation with physical examination for incarceration/infection. Assessment and Plan (1) Sepsis: Status: Acute (2) Osteomyelitis: Qualifiers: Laterality: right Status: Acute (3) Maggot infestation: Status: Acute Plan This is a 47-year-old female, homeless, wheelchair-bound (paraplegic) with history of polysubstance use disorder, opioid use disorder on methadone, history of MRSA bacteremia, mood disorder, status post colostomy, thoracic vertebral osteomyelitis s/p C5-T4 fusion and T1-T2 laminectomies 02/12/23, ischial osteomyelitis and infected ischial decubitus who presents to the emergency department for evaluation of back pain. #. Sepsis due to infected right sacral decubitus ulcer with cellulitis and ischial osteomyelitis, with maggot infestation: Resuscitated with IV crystalloids. Initiating empiric IV antibiotics. Blood culture and lactic acid obtained. Consulting general surgery, appreciate assistance. #. Acute metabolic encephalopathy in the setting of above #. Hypokalemia: Repleted #. Homelessness: Consulting case management #. Iron deficiency anemia: Continue home iron supplementation #. Opioid use disorder: On methadone #. History of poly substance use disorder: UDS pending Med rec pending DVT prophylaxis: Lovenox Admit as inpatient and will require two night minimum hospital stay for IV antibiotics (as above), which is not possible in a lesser acute setting. Specialist consult pending Quality Stroke Does the patient have a stroke diagnosis?: No VTE Prior VTE?: No VTE Risk Level:: Medical - moderate - high VTE Device Contraindication: Treatment Not Indicated VTE Drug Contraindication: N/A - Med Ordered
[2023-10-05] MEDS: vancomycin HCL 1,000 MG, vancomycin HCL 750 MG in 0.9 % Sodium Chloride 500 ML 267.5 MG IV (02:39)
[2023-10-05] MEDS: Enoxaparin Sodium 40 MG/0.4 ML SYRINGE SUBCUT (02:40)
[2023-10-05] MEDS: 0.9 % Sodium Chloride 1,000 ML 999 ML IV (02:41)
[2023-10-05] MEDS: vancomycin HCL 1,000 MG in 0.9 % Sodium Chloride 250 ML 270 MG IV (02:47)
--- NOTE | 2023-10-05 03:31 | PC.NURSE ---
pt is not awake enought to take PO meds at this time. scheduled klor-con not given. will try again at a later time.
--- NOTE | 2023-10-05 04:20 | PC.NURSE ---
pt refusing to take PO potassium unless she gets IV pain meds. explained to pt that she is very lethargic, unable to keep eyes open to have conversation, falls asleep during care. explained that IV pain meds would not be ideal at this time. pt then fell back off to sleep. pt was very difficult to obtain access. pt only has ultrasound guided 18G in right AC which currently has vanco infusing, delay in administration of potassium via IV.
[2023-10-05] MEDS: Potassium Chloride/H20 10 MEQ/100 ML PIGGYBACK 100 MEQ IV ×4 (05:21→09:49)
--- NOTE | 2023-10-05 06:11 | PM.CNGS ---
History of Present Illness Consult details Consult date: 10/05/23 Narrative: The patient is a 47-year-old woman with a history of substance abuse with a large right gluteal/sacral decubitus with osteo of the ischial tuberosity. Patient is homeless and poorly compliant. She was initially very somnolent but was able to provide informed consent. However, in follow-up in assessment regarding wound evaluation, she became belligerent and requested that I stop examining her. History is obtained from the EMR, pictures and exam conducted Review of Systems Review of Systems: Yes Unobtainable due to mental status PMFSH Past Medical History Medical History Mood disorder History of osteomyelitis (~08/15/23) Cocaine use disorder Opioid use disorder Anemia Polysubstance (including opioids) dependence, daily use Drug abuse in remission Asthma Family History Family History Other Opioid use disorder Surgical History Surgical History Hx of surgical procedure (~08/12/23) Colostomy in place History of spinal fusion Social History Social History Household Members: Other Household Members Other:: homeless Housing: Homeless Housing Other:: homeless Do you presently have visiting nurse or other home services: No Unable to assess alcohol history related to: Refusing to respond Alcohol intake: never Patient Tobacco Use Status: Former Tobacco user Tobacco use type: Cigarette Cigarettes Per Day: 2 Use of substances other than those prescribed or required for medical reasons: Refusing to respond Substance Use Type: Former Substance User Advance Directives: Yes Advance Directives on File: Yes Advance Directives Date on File: 06/16/23 service: No Meds Allergies Allergy/AdvReac Type Severity Reaction Status Date / Time codeine [Codeine] Allergy Intermediate ITCHING, Verified 08/15/23 23:00 VOMTING, THROAT SWELLS tramadol [TRAMADOL] Allergy Intermediate BODY Verified 08/15/23 23:00 SWELLING Active Medications: Current Medications Acetaminophen (Acetaminophen 325 Mg Tablet) 650 mg PO Q6H PRN PRN Reason: Pain, Mild (Pain Scale 1-3) Enoxaparin Sodium (Enoxaparin Sodium 40 Mg/0.4 Ml Syringe) 40 mg SUBCUT BEDTIME THEODORE Last Admin: 10/05/23 02:40 Dose: 40 mg Piperacillin Sod/Tazobactam (Sod 4.5 gm/ Sodium Chloride) 100 mls @ 200 mls/hr IV Q6H THEODORE Melatonin (Melatonin 3 Mg Tablet) 6 mg PO BEDTIME PRN PRN Reason: Insomnia Ondansetron HCl (Ondansetron Hcl 4 Mg/2 Ml Vial) 4 mg IVPUSH Q8H PRN PRN Reason: Nausea and Vomiting Pharmacy Consult (Consult Rx Vancomycin Dosing) 1 each MISCELLANE DAILY PRN PRN Reason: Consult order Sodium Chloride (0.9 % Sodium Chloride Flush 3 Ml Syringe) 3 [facility] Home Medications Medication Instructions Recorded Confirmed Last Taken Type methadone 10 mg/mL oral concentrate 80 mg PO DAILY 07/28/23 08/09/23 08/07/23 History Physical Exam Vital Signs: Vital Signs: Last Vital Signs Temp 98.3 F 10/05/23 00:32 Pulse 99 10/05/23 00:32 Resp 17 10/05/23 00:32 BP 127/91 H 10/05/23 00:32 Pulse Ox 97 10/05/23 00:32 O2 Del Method Room Air 10/05/23 00:32 BMI result Body Mass Index 26.6 On exam, the patient was initially somewhat somnolent, several hours later when I returned, she was very animated and belligerent requesting methadone, food and that I stop examining her. The patient's abdomen is soft with no tenderness near the colostomy; she was examined and left lateral decubitus position. There is stool and gas in her ostomy bag There was no debris or gross insect parts visualized such as maggots. The wound was irrigated and there is healthy, pink granulation tissue with multiple tracts. No gross purulence is noted and serous/fibrinous drainage is noted. The area was irrigated copiously with saline colored with Betadine then packed wet to dry and covered with ABDs. Results Labs 10/05/23 00:07 10/05/23 00:07 Labs: Abnormal lab results 10/05/23 Range/Units 00:07 WBC 12.1 H (4.8-10.8) X10*3/uL Hgb 10.3 L (12.0-16.0) g/dl Hct 34.0 L (37.0-47.0) % MCV 78.7 L (80.0-98.0) fL MCH 23.8 L (27.0-33.0) pg MCHC 30.3 L (31.0-35.0) g/dl RDW 17.7 H (11.0-16.0) % Plt Count 529 H (160-400) X10*3/uL MPV 9.1 L (9.4-12.3) fL Potassium 3.0 L (3.3-5.1) mmol/L Total Protein 8.2 H (6.5-8.0) g/dL Albumin 3.3 L (3.5-5.0) g/dL Short CBC 10/05/23 Range/Units 00:07 WBC 12.1 H (4.8-10.8) X10*3/uL Hgb 10.3 L (12.0-16.0) g/dl Hct 34.0 L (37.0-47.0) % Plt Count 529 H (160-400) X10*3/uL BMP 10/05/23 00:07 Sodium 140 Potassium 3.0 L Chloride 103 Carbon Dioxide 27 BUN 12 Creatinine 0.58 Calcium 9.1 D Liver Function 10/05/23 Range/Units 00:07 Total Bilirubin 0.3 (0.0-1.0) mg/dL AST 17 (5-31) U/L ALT 10 (0-31) U/L Alkaline Phosphatase 104 (39-117) U/L Albumin 3.3 L (3.5-5.0) g/dL All other labs normal. Imaging Abdomen CT scan report/results: report reviewed and image reviewed CT scan - pelvis: report reviewed and image reviewed Assessment and Plan (1) Moderate protein-calorie malnutrition: Status: Acute (2) Hypokalemia: Status: Acute (3) Maggot infestation: Status: Acute Plan The patient's comorbidities make this complicated. Her wound was cleaned enough that there were no maggots on my exam. The wound care provided by the ER appears to have address this. See orders, order saline wet to dry. Procedures Date of Service Date of Service: 10/05/23
--- NOTE | 2023-10-05 06:14 | PC.NURSE ---
pt refusing AM lab work. MD notified via tiger text.
--- NOTE | 2023-10-05 07:05 | PC.NURSE ---
to clarify in the MAR, pt received 1750MG of Vancomycin per MD order.
--- NOTE | 2023-10-05 07:08 | HE.PHANOTE ---
confirmation of vanco load confirmed with rn that load of vancomycin was only 1750. administration record shows 2 separate doses of 1750 and 1000 mg but tracy silva confirms she only hung 1750 mg and doesn't know why 1000 mg shows in pt record. 1000 mg was NOT hung.
--- NOTE | 2023-10-05 07:18 | PHA.PROG ---
Admission Date/Time: October 05, 2023 00:43 Indication: SEPSIS Weight in k.039 kg Adjusted body weight in K.656 [place] body weight in K.4 Obesity Dosing Indication % IBW:26.2 Serum Creatinine - Last 168 Hours 10/05/23 00:07 Creatinine 0.58 Estimated CrCl and GFR - Last 168 Hours 10/05/23 00:07 Estim Creat Clear Calc 109.8 Estimated GFR > 60 Vancomycin Loading Dose: 1750 MG Current Vancomycin Dosing Regimen: 1250 Q12 Vancomycin Monitoring using AUC goal of 400 - 600 range with trough as surrogate marker:530/15.3 Date and Time for next Vancomycin Level to be drawn: 10/06 @1200 Pharmacist Comments on Vancomycin Plan: CONFIRMED LOAD OF 1750 GIVEN IN ED WITH DON GRISSOM Vancomycin dosing will take advantage of [employer] as a clinical decision support tool that uses Bayesian modeling to calculate individual patient's pharmacokinetic parameters and forecast the patient's drug concentration time course with the target goal AUC 24 range of 400 - 600 mg/L/hr.
--- NOTE | 2023-10-05 08:12 | PC.NURSE ---
plastic bag of ? drug paraphernalia (syringes and lighters with misc. other items) brought to security to be placed in [facility]. full contents of bag not explored d/t risk.
[2023-10-05] MEDS: 0.9 % Sodium Chloride Flush 3 ML SYRINGE IVFLUSH ×3 (08:14→21:57)
[2023-10-05] MEDS: Piperacillin Sodium/Tazobactam 4.5 GM in 0.9 % Sodium Chloride 100 ML IV ×3 (08:14→20:06)
--- NOTE | 2023-10-05 08:35 | PC.NURSE ---
Dr. Emerson down to see pt for consent for wound wash out. pt agreed to the procedure.
--- NOTE | 2023-10-05 08:37 | PC.NURSE ---
pt yelling out and restless. pt noted to be in a large amount of urine and wound exudate. linens changes, skin cleaned and large ABD applied to decubitus to coccyx. puriwick placed at this time. pt continues to request pain meds but continues to fall asleep when explanation for meds to be held at this time d/t lethargy. IV potassium bags hanging late in JAN d/t pts singular line of access, pt a difficult poke. .18G IV was placed by overnight with u/s guidance. VSS at this time, pt resting with eyes closed.
--- NOTE | 2023-10-05 10:16 | P.PNIM_ITS ---
Subjective Subjective Date of Service: 10/05/23 Interval History: lethargic Physical Exam 2 Vital Signs: Vital Signs: Last Vital Signs Temp 97.7 F 10/05/23 07:21 Pulse 89 10/05/23 07:21 Resp 14 10/05/23 07:21 BP 98/61 10/05/23 07:21 Pulse Ox 98 10/05/23 07:21 O2 Del Method Room Air 10/05/23 07:21 BMI result Body Mass Index 26.6 lethargic, ill appearing, oriented times 3, paraplegic, large pressure ulcer (see picture) Objective Data Active Medications Acetaminophen (Acetaminophen 325 Mg Tablet) 650 mg PO Q6H PRN PRN Reason: Pain, Mild (Pain Scale 1-3) Enoxaparin Sodium (Enoxaparin Sodium 40 Mg/0.4 Ml Syringe) 40 mg SUBCUT BEDTIME [facility] Last Admin: 10/05/23 02:40 Dose: 40 mg Documented By: GWENDOLYN Vancomycin HCl 1,250 mg/ (Sodium Chloride) 250 mls @ 166.667 mls/hr IV Q12H THEODORE Piperacillin Sod/Tazobactam (Sod 4.5 gm/ Sodium Chloride) 100 mls @ 200 mls/hr IV Q6H THEODORE Melatonin (Melatonin 3 Mg Tablet) 6 mg PO BEDTIME PRN PRN Reason: Insomnia Ondansetron HCl (Ondansetron Hcl 4 Mg/2 Ml Vial) 4 mg IVPUSH Q8H PRN PRN Reason: Nausea and Vomiting Pharmacy Consult (Consult Rx Vancomycin Dosing) 1 each MISCELLANE DAILY PRN PRN Reason: Consult order Sodium Chloride (0.9 % Sodium Chloride Flush 3 Ml Syringe) 3 ml IVFLUSH QSHIFT [facility] Last Admin: 10/05/23 08:14 Dose: 3 ml Documented By: JENNIE Labs 10/05/23 00:07 10/05/23 00:07 Labs: Laboratory Results - last 24 hr 10/05/23 00:07 MCV 78.7 L MCH 23.8 L MCHC 30.3 L RDW 17.7 H Plt Count 529 H MPV 9.1 L Absolute Nucleated RBC 0.000 Nucleated RBC % (auto) 0.0 Anion Gap 13 Estim Creat Clear Calc 109.8 Estimated GFR > 60 Random Glucose 109 Lactic Acid 1.4 Calcium 9.1 D Total Bilirubin 0.3 AST 17 ALT 10 Alkaline Phosphatase 104 Total Protein 8.2 H Albumin 3.3 L Assessment and Plan (1) Sepsis: Status: Acute Plan 47F PMH homeless, wheelchair-bound (paraplegic) with history of polysubstance use disorder, opioid use disorder on methadone, history of MRSA bacteremia, mood disorder, status post colostomy, thoracic vertebral osteomyelitis s/p C5-T4 fusion and T1-T2 laminectomies 02/12/23, ischial osteomyelitis and infected ischial decubitus called EMS for maggots in wound Sepsis due to infected right sacral decubitus ulcer with cellulitis and ischial osteomyelitis and maggot infestation IV vancomycin Zosyn, follow-up surgery, blood cultures Opiate dependence Addiction eval, verify methadone Acute hypokalemia Repleted Acute metabolic encephalopathy due to sepsis Resolved DVT prophylaxis Lovenox Full code reason for continued hospitalization: Continue IV antibiotics while awaiting cultures Quality Stroke Does the patient have a stroke diagnosis?: No VTE Prior VTE?: No VTE Risk Level:: Medical - moderate - high VTE Device Contraindication: Treatment Not Indicated VTE Drug Contraindication: N/A - Med Ordered
--- NOTE | 2023-10-05 11:08 | PC.NURSE ---
tiger connect sent to Dr. norman r/t potassium infusion, pt had 5 bags total ordered, one ER order and 4 maintenance as hospitalist order. d/t pt refusing AM lab work, unsafe administration of 5 total bags was determined, decision made to hold 5th bag by MD Norman.
--- NOTE | 2023-10-05 11:14 | PC.NURSE ---
pt incontinent of urine, puriwick out of place. linens changed, puriwick replaced.
--- NOTE | 2023-10-05 11:34 | PHA.MEDREC ---
Pharmacy Consult ? Medication Reconciliation Pharmacy has completed the medication reconciliation. tried to speak with patient about methadone. Confirmed 80 mg and told me she has not had it for a couple of days. She could not be specific on the day. She said she received it from [facility]. Patient kept falling asleep during conversation. PDMP says she was getting oxycodone at [facility] where she was discharged on 09/22. I called to request a medication list but they were unsure if they were able to fax one d/t the fact that she was discharged. If we receive one pharmacy will update. Used previous discharge summary to confirm other medications.
[2023-10-05] MEDS: Morphine Sulfate 4 MG/ML CARTRIDGE IVPUSH ×3 (12:16→21:52)
[2023-10-05 12:23] LABS: Appearance Urine Cloudy; Color Urine Yellow; Glucose Urine UA Negative (Negative); Leukocyte Esterase Urine Large (3+) (Negative); Nitrite Urine Positive (Negative); UMIC TRIGGER UACC YES; Urine Blood Moderate (2+) (Negative); Urine Ketones Negative (Negative); Urine Protein 30 (1+) mg/dL (Neg-Trace)
[2023-10-05 12:28] LABS: Amphetamine Screen Urine Not Detected (Not Detect); Barbiturates, Urine Not Detected (Not Detect); Benzodiazepines Screen Urine Not Detected (Not Detect); Cannabinoid Screen Urine Not Detected (Not Detect); Cocaine Screen Urine POSITIVE (Not Detect); Fentanyl, urine POSITIVE (Not Detect); Opiate Screen Urine POSITIVE (Not Detect); Phencyclidine Screen Urine Not Detected (Not Detect)
--- NOTE | 2023-10-05 12:28 | PC.NURSE ---
pt informed this assembly instructions writer that she receives 80mg methadone from [facility] on [facility] in [place]. the clinic is currently closed. this assembly instructions writer reached out to Eric from [facility] to possibly confirm dose.
[2023-10-05 12:35] LABS: Bacteria Urine None Seen (None Seen); Hyaline Casts Urine 0-2 /LPF (0-2); RBC Urine >20 /HPF (0-2); Squamous Epithelial Cell Urine 0-2 /HPF (0-2); UACC Culture Trigger YES; WBC Urine >50 /HPF (0-5)
--- NOTE | 2023-10-05 14:16 | MHC.EDTECH ---
T/w and another senior electronics technician (Jose F) helped clean Pt, put new underpads and mesh underwear on Pt. Repositioned and pillows placed under her knees and between legs per Pt request.
[2023-10-05] MEDS: vancomycin HCL 1,250 MG in 0.9 % Sodium Chloride 250 ML 166.67 MG IV (14:40)
--- NOTE | 2023-10-05 15:03 | PC.NURSE ---
jim Reyes from [facility] [place] - pt has not received her methadone since the beginning of August.
--- NOTE | 2023-10-05 16:44 | PC.NURSE ---
pt incontinent of urine despite periwick in pace. periwick removed at this time. linens changed. ostomy bag changed as it had fallen off
[2023-10-06] MEDS: Cyclobenzaprine HCl 5 MG TABLET PO (01:03)
[2023-10-06] MEDS: Piperacillin Sodium/Tazobactam 4.5 GM in 0.9 % Sodium Chloride 100 ML IV ×2 (01:03→08:32)
[2023-10-06] MEDS: Acetaminophen 325 MG TABLET 650 MG PO (01:03)
[2023-10-06] MEDS: Morphine Sulfate 4 MG/ML CARTRIDGE IVPUSH ×3 (02:00→10:30)
[2023-10-06] MEDS: vancomycin HCL 1,250 MG in 0.9 % Sodium Chloride 250 ML 166.66 MG IV (02:01)
[2023-10-06 04:00] VITALS: BP 134/74; PULSE 77; RESP 18; TEMP 36.1; O2SAT 99
[2023-10-06] MEDS: HYDROmorphone HCl 0.5 MG/0.5 ML SYRINGE IVPUSH (04:24)
[2023-10-06 08:00] VITALS: BP 130/64; PULSE 86; RESP 20; TEMP 36.8; O2SAT 98
--- NOTE | 2023-10-06 09:35 | P.PNIM_ITS ---
Subjective Subjective Date of Service: 10/06/23 Interval History: wants to go home Physical Exam 2 Vital Signs: Vital Signs: Last Vital Signs Temp 98.2 F 10/06/23 08:00 Pulse 86 10/06/23 08:00 Resp 20 10/06/23 08:00 BP 130/64 10/06/23 08:00 Pulse Ox 98 10/06/23 08:00 O2 Del Method Room Air 10/06/23 08:00 BMI result Body Mass Index 26.6 lethargic, ill appearing, oriented times 3, paraplegic, large pressure ulcer (see picture) Objective Data Active Medications Acetaminophen (Acetaminophen 325 Mg Tablet) 650 mg PO Q6H PRN PRN Reason: Pain, Mild (Pain Scale 1-3) Last Admin: 10/06/23 01:03 Dose: 650 mg Documented By: FARHANA Cyclobenzaprine HCl (Cyclobenzaprine Hcl 10 Mg Tablet) 10 mg PO TID PRN PRN Reason: Leg Cramp Enoxaparin Sodium (Enoxaparin Sodium 40 Mg/0.4 Ml Syringe) 40 mg SUBCUT BEDTIME [facility] Last Admin: 10/05/23 21:57 Dose: Not Given Documented By: FARHANA Non-Admin Reason: Patient Refused Vancomycin HCl 1,250 mg/ (Sodium Chloride) 250 mls @ 166.667 mls/hr IV Q12H [facility] Last Infusion: 10/06/23 03:59 Dose: Infused Documented By: FARHANA Piperacillin Sod/Tazobactam (Sod 4.5 gm/ Sodium Chloride) 100 mls @ 200 mls/hr IV Q6H [facility] Last Infusion: 10/06/23 09:05 Dose: Infused Documented By: MILES Melatonin (Melatonin 3 Mg Tablet) 6 mg PO BEDTIME PRN PRN Reason: Insomnia Morphine Sulfate (Morphine Sulfate 4 Mg/Ml Cartridge) 4 mg IVPUSH Q4H PRN; Protocol PRN Reason: moderate pain Last Admin: 10/06/23 07:30 Dose: 4 mg Documented By: MILES Ondansetron HCl (Ondansetron Hcl 4 Mg/2 Ml Vial) 4 mg IVPUSH Q8H PRN PRN Reason: Nausea and Vomiting Pharmacy Consult (Consult Rx Vancomycin Dosing) 1 each MISCELLANE DAILY PRN PRN Reason: Consult order Sodium Chloride (0.9 % Sodium Chloride Flush 3 Ml Syringe) 3 ml IVFLUSH QSHIFT [facility] Last Admin: 10/06/23 08:33 Dose: Not Given Documented By: MILES Non-Admin Reason: IV Running Labs 10/05/23 00:07 10/05/23 00:07 Labs: Laboratory Results - last 24 hr 10/05/23 12:15 Urine Color Yellow Urine Appearance Cloudy Urine pH 6.0 Ur Specific Platinum 1.020 Urine Protein 30 (1+) H Urine Glucose (UA) Negative Urine Ketones Negative Urine Blood Moderate (2+) H Urine Nitrite Positive H Ur Leukocyte Esterase Large (3+) H Urine RBC >20 H Urine WBC >50 H Ur Squamous Epith Cells 0-2 Urine Bacteria None Seen Hyaline Casts 0-2 Urine Opiates Screen POSITIVE H Urine Fentanyl Screen POSITIVE H Ur Barbiturates Screen Not Detected Ur Phencyclidine Scrn Not Detected Ur Amphetamines Screen Not Detected U Benzodiazepines Scrn Not Detected Urine Cocaine Screen POSITIVE H U Marijuana (THC) Screen Not Detected Microbiology Microbiology Results: Microbiology 10/04/23 23:41 Blood Culture - Preliminary Blood - Venous No growth after 24 hours. 10/05/23 00:07 Blood Culture - Preliminary Blood - Venous No growth after 24 hours. Assessment and Plan (1) Sepsis: Status: Acute Plan 47F PMH homeless, wheelchair-bound (paraplegic) with history of polysubstance use disorder, opioid use disorder on methadone, history of MRSA bacteremia, mood disorder, status post colostomy, thoracic vertebral osteomyelitis s/p C5-T4 fusion and T1-T2 laminectomies 02/12/23, ischial osteomyelitis and infected ischial decubitus called EMS for maggots in wound Sepsis due to infected right sacral decubitus ulcer with cellulitis and ischial osteomyelitis and maggot infestation IV vancomycin Zosyn, follow-up surgery, ID, blood cultures Opiate dependence Addiction eval, verify methadone Acute hypokalemia Repleted Acute metabolic encephalopathy due to sepsis Resolved DVT prophylaxis Lovenox Full code reason for continued hospitalization: Continue IV antibiotics while awaiting cultures Quality Stroke Does the patient have a stroke diagnosis?: No VTE Prior VTE?: No VTE Risk Level:: Medical - moderate - high VTE Device Contraindication: Treatment Not Indicated VTE Drug Contraindication: N/A - Med Ordered
--- NOTE | 2023-10-06 09:44 | MHC.CM.PN ---
Pt does not have a place to live, she said her HCP is no longer who we have listed on file (Adele), and she declined to complete another HCP. She gets her Methadone at [facility]. DC plan is uncertain at this time. CM will follow and assist with DC planning.
[2023-10-06] MEDS: Cyclobenzaprine HCl 10 MG TABLET PO (09:52)
--- NOTE | 2023-10-06 11:38 | PC.NURSE ---
Addendum entered by Darshana Garza RN 10/06/23 12:05: per MARA Singleton when pt was brought down to [facility] to retrieve belongings security informed that she could not leave with hospital wheelchair. Pt attempted to call mother for ride but mother unable to pick her up. Stated to could go to friends house in [place]. Left in ER waiting room with security awaiting ride. Original Note: At ~10:40 pt stating she wants to leave AMA right this instant . Dr. Wang notified at 10:41 and up to see pt. Per MD pt has capacity to leave AMA. Pt educated extensively about the risks of leaving AMA. Verbalized understanding and proceeded to sign AMA form witnessed by DON Lucas and MARA Singleton. Ostomy bag changed and coccyx dressing changed per orders. IV removed with catheter tip intact. no s/s infection or bleeding noted. Pt brought off the floor at 11:35 with MARA Singleton to retrieve belongings from [facility] and then left hospital in wheelchair.
--- NOTE | 2023-10-06 13:07 | MHC.CM.PN ---
Pt left today against medical advice.
--- NOTE | 2023-10-06 16:01 | P.DS_ITS ---
DS: Providers Provider Date of Service: 10/06/23 Date of admission: 10/05/23 00:43 Primary care physician: Unknown Physician Consults: 10/05/23 01:04 Consult to General Surgery Routine Consulting Provider[place] [facility] Reason for consultation: Infected sacral decubitus ulcer 10/06/23 07:18 Consult to Infectious Diseases Routine Consulting Provider[place] [facility] [place] Reason for consultation: worsening om decubitus DS: Diagnosis Discharge Diagnosis (1) Sepsis: Status: Acute DS: Summary Hospital Course Hospital Course: from initial hpi: 47-year-old female, homeless, wheelchair-bound (paraplegic) with history of polysubstance use disorder, opioid use disorder on methadone, history of MRSA bacteremia, mood disorder, status post colostomy, thoracic vertebral osteomyelitis s/p C5-T4 fusion and T1-T2 laminectomies 02/12/23, ischial osteomyelitis and infected ischial decubitus who presents to the emergency department for evaluation of back pain. Of note, patient was recently admitted and discharged on 09/08 with right sacral/ischial decubitus ulcer with maggot infestation and osteomyelitis and UTI. Patient was discharged to SNF for STR with IV vancomycin followed by p.o. doxycycline. Patient is a poor historian and unable to provide any history. She is not willing to talk and only complains of back pain. Patient is lethargic and states she only wants to sleep. Unable to obtain review of systems. hospital course: Patient was admitted for sepsis secondary to infected right sacral decubitus ulcer with cellulitis and ischial osteomyelitis and Maggot infection. She with vancomycin Zosyn. For be dependence need she was treated with methadone. For acute hyperkalemia she received replacement. For acute metabolic encephalopathy due to sepsis this resolved with IV antibiotics. Plan was to continue IV antibiotics and to obtain Infectious Disease consultation. However, patient decided to leave against medical advice. She was able to demonstrate understan ding of the risk of doing so including . Time Attestation Discharge coordination time: Greater than 30 minutes Quality: Safe Use of Opioids Does Pt have an Active Cancer Diagnosis on the Problem List?: No Quality: Stroke Does the patient have a stroke diagnosis?: No Physical Exam Vital Signs: Vital Signs: Last Vital Signs Temp 98.2 F 10/06/23 08:00 Pulse 86 10/06/23 08:00 Resp 20 10/06/23 08:00 BP 130/64 10/06/23 08:00 Pulse Ox 98 10/06/23 08:00 O2 Del Method Room Air 10/06/23 08:00 BMI result Body Mass Index 26.6 lethargic, ill appearing, oriented times 3, paraplegic, large pressure ulcer (see picture) DS: Data Data Completed and Pending Completed studies during hospitalization [Text1]: Procedures Bypass Sigmoid Colon to Cutaneous, Open Approach (08/07/23) Excision of Right Hip Muscle, Open Approach (07/26/23) Excision of Right Pelvic Bone, Open Approach (08/07/23) Excision of Right Upper Leg Subcutaneous Tissue and Fascia, Open Approach (08/28/23) Insertion of Infusion Device into Superior Vena Cava, Percutaneous Approach (08/28/23) Release Peritoneum, Open Approach (08/07/23) Transfusion of Nonautologous Red Blood Cells into Peripheral Vein, Percutaneous Approach (08/28/23) Ultrasonography of Superior Vena Cava, Guidance (08/28/23) Labs on day of discharge: Preliminary micro results at discharge 10/04/23 23:41 Blood Culture - Preliminary Blood - Venous No growth after 24 hours. 10/05/23 00:07 Blood Culture - Preliminary Blood - Venous No growth after 24 hours. Discharge Plan Discharge Patient Disposition: Left Against Medical Advice Discharge Diagnosis: sacral wound Referrals: Physician,Unknown J [Primary Care Provider] - 1 Week Discharge Medications: No Action (DME) colostomy bags 3 misc See Rx Instructions .ROUTE .MEDSUPPLY Qty: 30 2RF Rx Instructions: As directed acetaminophen 325 mg Tablet 650 mg PO Q6H PRN (Reason: Pain, Mild (Pain Scale 1-3)) Qty: 60 0RF ferrous sulfate 324 mg (65 mg iron) tablet,delayed release (DR/EC) 324 mg PO DAILY Qty: 90 0RF multivitamin Tablet 1 tab PO DAILY Qty: 90 0RF docusate sodium [Colace] 100 mg capsule 100 mg PO BID Qty: 180 0RF nicotine 21 mg/24 hr Patch 24 Hour 21 mg transdermal DAILY Qty: 30 0RF doxycycline hyclate 100 mg capsule 100 mg PO BID Qty: 56 0RF oxycodone 5 mg Tablet 10 mg PO Q6H PRN (Reason: Pain, Moderate(Pain Scale 4-6)) Qty: 12 0RF Rx Instructions: Partial Fill upon patient request. methadone 10 mg/mL Concentrate 80 mg PO DAILY Discharge Orders: Discharge Order (Routine); Ordered 10/06/23 Ordered By: Jonel Wang Care Plan Goals: recovery Health Concerns: ulcer Plan of Treatment: cannot treat, left hospital Assessment: see above Discharge Date/Time: 10/06/23 11:40
== END 2023-10-06 11:40 | disposition left against medical advice (07) | DRG 720 ==
LOC: HO.ED 10-05 00:47 → HO.EDOVER 10-05 00:57 → HO.IMC 10-05 19:32
PROVIDERS: Admitting Provider Student in an Organized Health Care Education/Training Program; Emergency Provider Emergency Medicine; Visit Provider Internal Medicine
DX: A41.9 Sepsis, unspecified organism (principal); G93.41 Metabolic encephalopathy; L89.150 Pressure ulcer of sacral region, unstageable; G82.20 Paraplegia, unspecified; L03.312 Cellulitis of back [any part except buttock and flank]; F11.20 Opioid dependence, uncomplicated; B87.1 Wound myiasis; M86.9 Osteomyelitis, unspecified; D50.9 Iron deficiency anemia, unspecified; E87.6 Hypokalemia; Z59.02 Unsheltered homelessness; Z87.891 Personal history of nicotine dependence; Z99.3 Dependence on wheelchair; Z98.1 Arthrodesis status; Z93.3 Colostomy status; Z79.899 Other long term (current) drug therapy
CPT/HCPCS: 36415; 74176; 80053; 80307; 81001; 83605; 85027; 87040; 87086; 99285; J1170; J1650; J2270; J2543; J3370; J3371; J3480

== ENCOUNTER → 2023-10-05 00:43 | Outpatient (BNV) | payer MEDICAID, SELFPAY | PROVIDERS: Admitting Provider Student in an Organized Health Care Education/Training Program; Emergency Provider Emergency Medicine; Visit Provider Surgery | DX: L89.319 Pressure ulcer of right buttock, unspecified stage (principal); E44.0 Moderate protein-calorie malnutrition; E87.6 Hypokalemia; B87.9 Myiasis, unspecified | CPT/HCPCS: 99222 ==

== ENCOUNTER → 2023-10-05 00:43 | Outpatient (BNV) | payer MEDICAID, SELFPAY | PROVIDERS: Admitting Provider Student in an Organized Health Care Education/Training Program; Emergency Provider Emergency Medicine; Visit Provider Student in an Organized Health Care Education/Training Program | DX: A41.9 Sepsis, unspecified organism (principal) | CPT/HCPCS: 99222; 99239; 99499 ==

== ENCOUNTER 2023-10-22 03:38 | Emergency (ER) | payer MEDICAID, SELFPAY ==
[2023-10-22] VITALS (7 sets, daily range): BP systolic 122–127; BP diastolic 62–78; PULSE 100–114; RESP 16–20; TEMP 36.7–37.1; O2SAT 96–99
--- NOTE | 2023-10-22 04:20 | PC.NURSE ---
pt presents via ems for a fall from wheelchair c/o of back pain. Pt presents covered completely in her feces as colostomy bag was missing. Pt was also covered in her urine and had needles placed in her pockets, falling to ground. Security called to bedside for search. Clothes had to be cut off and thrown away ( pt gave permission) . Pt was cleaned changed and colostomy bag was placed . Chronic Coccyx wounds assessed and left open for provider to check/treat/assess. Pt is sleeping at this time.
--- NOTE | 2023-10-22 04:52 | ED.FALL ---
HPI - Fall General Chief Complaint: Fall Stated Complaint: Leg pain Time Seen by Provider: 10/22/23 04:33 Source: patient Mode of arrival: EMS Limitations: no limitations History of Present Illness HPI Narrative: Patient paraplegic with history of substance abuse came from the street as she fell from the wheelchair no significant injury multiple needles found around the patient does have history of fentanyl and cocaine use patient does have a deep left gluteal wound which has been healing no significant injury noted patient been very sleepy on arrival afebrile Related Data Home Medications Medication Instructions Recorded Confirmed methadone 10 mg/mL oral concentrate 80 mg PO DAILY 07/28/23 08/09/23 Previous Rx's Medication Instructions Recorded acetaminophen 325 mg tablet 650 mg (2 x 325 mg) PO Q6H PRN 08/15/23 Pain, Mild (Pain Scale 1-3) #60 tabs colostomy bags 3 #30 ea 08/15/23 docusate sodium 100 mg capsule 100 mg PO BID #180 caps 08/15/23 (Colace) ferrous sulfate 324 mg (65 mg 324 mg PO DAILY #90 tabs 08/15/23 iron) tablet,delayed release multivitamin 1 tab PO DAILY #90 tabs 08/15/23 doxycycline hyclate 100 mg capsule 100 mg PO BID #56 caps 09/05/23 nicotine 21 mg/24 hr daily 21 mg transdermal DAILY #30 ea 09/05/23 transdermal patch oxycodone 5 mg tablet 10 mg (2 x 5 mg) PO Q6H PRN Pain, 09/08/23 Moderate(Pain Scale 4-6) #12 tabs cephalexin 500 mg capsule 500 mg PO QID 10 days #40 caps 10/22/23 doxycycline hyclate 100 mg tablet 100 mg PO BID #20 tabs 10/22/23 Allergies Allergy/AdvReac Type Severity Reaction Status Date / Time codeine [Codeine] Allergy Intermediate ITCHING, Verified 08/15/23 23:00 VOMTING, THROAT SWELLS tramadol [TRAMADOL] Allergy Intermediate BODY Verified 08/15/23 23:00 SWELLING Review of Systems Review of Systems: Yes all other systems are reviewed and are negative PMFSH Past Medical History Medical History Mood disorder History of osteomyelitis (~08/15/23) Cocaine use disorder Opioid use disorder Anemia Polysubstance (including opioids) dependence, daily use Drug abuse in remission Asthma Surgical History Hx of surgical procedure (~08/12/23) Colostomy in place History of spinal fusion Family History Family History Other Opioid use disorder Social History Social History Household Members: None Household Members Other:: homeless Housing: Homeless Housing Other:: homeless Do you presently have visiting nurse or other home services: No Unable to assess alcohol history related to: Refusing to respond Alcohol intake: never Patient Tobacco Use Status: Former Tobacco user Tobacco use type: Cigarette Cigarettes Per Day: 2 Substance Use Type: Former Substance User Advance Directives: Yes Advance Directives on File: Yes Advance Directives Date on File: 06/16/23 service: No Physical Exam Vital Signs: Vital Signs: Last Vital Signs Temp 98.4 F 10/22/23 04:29 Pulse 100 10/22/23 04:29 Resp 20 10/22/23 06:00 BP 123/66 10/22/23 04:29 Pulse Ox 97 10/22/23 04:29 O2 Del Method Room Air 10/22/23 06:00 BMI result Body Mass Index 20.0 Appearance: Alert. Oriented X3. No acute distress. Eyes: PERRLA, No Nystagmus ENT: Pharynx normal. Oral Mucosa moist atraumatic normocephalic Neck: Normal inspection. Neck supple. No midline tenderness CVS: Normal heart rate and rhythm. Pulses normal. Respiratory: No respiratory distress. Equal air entry bilateral, Abdomen: Soft and nontender. Bowel sounds are present, colostomy bag and Skin: Deep left gluteal wound with granulation tissue Extremities: No lower extremity edema. No calf tenderness Neuro: Oriented X 3. Limited lower extremity movement No sensory deficit.No cerebellar signs , cranial nerves II-XII intact Medications Administered Discontinued Medications Generic Name Dose Route Start Last Admin Trade Name Freq PRN Reason Stop Dose Admin Clindamycin HCl 300 mg 10/22/23 05:03 10/22/23 05:08 Clindamycin Hcl 300 Mg Capsule PO 10/22/23 05:04 300 mg ONCE ONE Administration Doxycycline Monohydrate 100 mg 10/22/23 05:03 10/22/23 05:08 Doxycycline Monohydrate 100 Mg Capsule PO 10/22/23 05:04 100 mg ONCE ONE Administration Oxycodone HCl 10 mg 10/22/23 05:55 10/22/23 06:08 Oxycodone Hcl Immed Release 5 Mg Tablet PO 10/22/23 05:56 10 mg ONCE ONE Administration Medical Decision Making Medical Decision Making [facility] Narrative: Patient with polysubstance abuse with frequent falls frequent ED visits home nurse on wheelchair comes here multiple times usually goes against medical advise and uses drugs came with mechanical fall from the wheelchair with no significant injury chronic left gluteal wound seems to be healing will discharge patient home on doxycycline and clindamycin Discharge Plan Discharge Clinical Impression: Polysubstance abuse, Chronic wound, Fall Patient Disposition: Still a Patient Instructions: Polysubstance Abuse (ED), Chronic Wounds (ED) Additional Instructions: Stop using drugs take antibiotic as prescribed follow with wound clinic Prescriptions: New cephalexin 500 mg capsule 500 mg PO QID 10 Days Qty: 40 0RF doxycycline hyclate 100 mg tablet 100 mg PO BID Qty: 20 0RF No Action (DME) colostomy bags 3 misc See Rx Instructions .ROUTE .MEDSUPPLY Qty: 30 2RF Rx Instructions: As directed acetaminophen 325 mg Tablet 650 mg PO Q6H PRN (Reason: Pain, Mild (Pain Scale 1-3)) Qty: 60 0RF ferrous sulfate 324 mg (65 mg iron) tablet,delayed release (DR/EC) 324 mg PO DAILY Qty: 90 0RF multivitamin Tablet 1 tab PO DAILY Qty: 90 0RF docusate sodium [Colace] 100 mg capsule 100 mg PO BID Qty: 180 0RF nicotine 21 mg/24 hr Patch 24 Hour 21 mg transdermal DAILY Qty: 30 0RF doxycycline hyclate 100 mg capsule 100 mg PO BID Qty: 56 0RF oxycodone 5 mg Tablet 10 mg PO Q6H PRN (Reason: Pain, Moderate(Pain Scale 4-6)) Qty: 12 0RF Rx Instructions: Partial Fill upon patient request. methadone 10 mg/mL Concentrate 80 mg PO DAILY
[2023-10-22] MEDS: Clindamycin HCL 300 MG CAPSULE PO (05:08)
[2023-10-22] MEDS: Doxycycline Monohydrate 100 MG CAPSULE PO (05:08)
--- NOTE | 2023-10-22 06:06 | MHC.EDTECH ---
Pt refused VS assessment at 0600.
[2023-10-22] MEDS: oxyCODONE HCl Immed Release 5 MG TABLET 10 MG PO ×5 (06:08→22:41)
--- NOTE | 2023-10-22 06:30 | PC.NURSE ---
belonging in decon, wheelchair in room
--- NOTE | 2023-10-22 06:49 | PC.NURSE ---
cleaned covered wounds
--- NOTE | 2023-10-22 08:14 | PC.NURSE ---
PT IS A/O X 3 NO SOB/LILI NOTED SPEAKS IN FULL SENTENCES. BUTTOCKS/BONNY AREA/ELROY POST THIGHS EXCORIATED WITH OPEN AREAS. COLOSTOMY BAG IN PLACE. PT C/O 09/02 ELROY LEG/MUSCLE PAIN, REQUESTING MUSCLE RELAXER. MD AWARE.
[2023-10-22] MEDS: Cyclobenzaprine HCl 10 MG TABLET PO ×3 (08:47→21:54)
--- NOTE | 2023-10-22 08:53 | PC.NURSE ---
DRESSING CHANGE TO R LOWER BUTTOCKS (2) AND DRESSING CHANGE TO L LOWER BUTTOCKS WITH ALYVEN (DRESSING). PT'S ELROY BUTTOCKS ARE EXCORIATED/JOSE/HARDEN. LOWER ABD AREA JOSE/EXCORIATED. PT'S ELROY LOWER EXT 3-4+ PITTING EDEMA NOTED. MD AWARE. PT REQUESTED/GIVEN MUSCLE RELAXER FOR ELROY LEG/MUSCLE PAIN.
--- NOTE | 2023-10-22 08:54 | PC.NURSE ---
PT'S COLOSTOMY (L) BAG IS INTACT WITH FORMED STOOL NOTED.
--- NOTE | 2023-10-22 08:59 | MHC.EDTECH ---
clean patient up. around 7:30 am. patient refused vital signs
--- NOTE | 2023-10-22 08:59 | MHC.EDTECH ---
tech cleaned pt, placed purewick, repositioned, and changed dressing with DON Dennis, pt now resting in bed.
--- NOTE | 2023-10-22 09:45 | PC.NURSE ---
PT ENCOURAGED TO GO TO REHAB. PT IS NOT ANSWERING PLAYING POSSUM, BUT WHEN IT IS TIME TO GIVEN ANY TYPE OF PAIN MEDS PT WILL BE WIDE AWAKE.
--- NOTE | 2023-10-22 10:01 | MHC.CM.ED ---
Addendum entered by Gracie Martino 10/22/23 11:11: Received notification that patient is now agreeable to short term rehab. Original Note: Received case management consult overnight. Patient came to the ER due to leg pain. Patient is homeless, has an history of substance abuse and a coccyx wound. Patient left [facility] AMA 10/07. Attempted to meet with patient in regards to discharge planning. Tried to engage patient multiple times. Patient was able to shake her head no when asked if she was interested in short term rehab. Patient left fell asleep and would not engage with T/W. Prescriptions already sent to [facility]aram[facility] on 1st floor. T/W spoke with pharmacy. Her medications are ready and will be brought up to patient. Dr Simpson and Jeannie OCHOA aware.
--- NOTE | 2023-10-22 10:20 | PC.NURSE ---
THIS RN AT BEDSIDE AGAIN ENCOURAGING PT TO GO TO REHAB. PT IS LUCID. PT HAS ADAMANTLY REFUSED. PT IS AWARE OF RISKS. MD AND CASE MANAGEMENT AWARE.
--- NOTE | 2023-10-22 10:45 | PC.NURSE ---
PT WAS BEING GIVEN AMA DISCHARGE PAPERWORK WHEN SHE STATES THAT SHE IS UNABLE TO SIT IN HER W/C AND SHE WANTS TO GO TO REHAB. MD AWARE. TO TRANSFERRED TO OVERFLOW UNIT AND REPORT GIVEN TO RN. PT AWARE OF PLAN OF CARE.
--- NOTE | 2023-10-22 14:51 | MHC.RECOVRN ---
Met with pt in Overflow 6 to discuss substance use and provide support. Pt had been BIBA from street for fall from wheelchair. Upon ED evaluation, it was determined that dispo would be STR. Pt laying in bed, eyes closed, briefly wakes to voice, difficult to engage in conversation. Appears comfortable, does not appear to be experiencing withdrawal. Pt familiar with t/w from previous consults. Pt reports heroin/fentanyl use, 2 bundles daily, IV, last use TECHNICAL ASST. Pt also reports cocaine use, IN and INH, unable to specify amount, states morning til night. Pt is currently receiving oxycodone 10 mg q4hr prn while in overflow. Pt does not have questions or concerns for t/w at this time. Discussed with Shanelle Miller APRN.
[2023-10-22 16:35] LABS: IDNOW Serial# 08D9AD1C
[2023-10-22 16:36] LABS: COVID-19 Test Negative (Negative)
--- NOTE | 2023-10-22 20:21 | MHC.EDTECH ---
This pct assumed care of pt at 1900 ,pt was incontinent of urine ,care given ,pt reposition unto left side with pillow ,Vitals taken ,dinner tray Picked up ,Call garcia within Pt reach .
--- NOTE | 2023-10-22 22:13 | MHC.EDTECH ---
Patient was incontinent of urine ,jen care given ,Pt is attempting to throw herself on floor ,Sapna now in Place ,RN stanley aware .
[2023-10-22] MEDS: LORazepam 1 MG TABLET 2 MG PO (23:14)
--- NOTE | 2023-10-22 23:54 | PC.NURSE ---
pt disruptive to the unit, redirected many times, pt demanding pain meds and ativan . pt medicated per MAR. pt also tried to throwing herself on the floor and constantly ringing the garcia. reposition for comfort. dsg intact
--- NOTE | 2023-10-23 01:52 | PC.NURSE ---
pt restless demanding pain medicine, pt was informed that her next dose 0246
--- NOTE | 2023-10-23 02:40 | PC.NURSE ---
pt restless, pt took off her dsg, refused it to be applied at this time
[2023-10-23] MEDS: oxyCODONE HCl Immed Release 5 MG TABLET 10 MG PO ×2 (02:49→06:48)
--- NOTE | 2023-10-23 03:25 | PC.NURSE ---
pt assessed reported lowe ext pain, medicated per mar
--- NOTE | 2023-10-23 03:48 | PC.NURSE ---
pt assessed, pt incontinent of urine , dsg applied to wound, barrier cream applied
[2023-10-23 03:56] VITALS: BP 127/74; PULSE 68; RESP 16; TEMP 36.2; O2SAT 96
--- NOTE | 2023-10-23 03:56 | MHC.EDTECH ---
Patient rang call garcia said she was wet ,care given ,and bedding change ,Patient removed dressing from her bottom ,new dressing apply ,bedding change and vitals taken ,Call jose within Pt reach .
== END 2023-10-23 12:21 | disposition home or self-care (01) ==
PROVIDERS: Physician Assistant Medical; Emergency Provider Internal Medicine
DX: F11.10 Opioid abuse, uncomplicated (principal); M79.605 Pain in left leg; M79.604 Pain in right leg; R26.2 Difficulty in walking, not elsewhere classified; Z11.52 Encounter for screening for COVID-19; Z20.822 Contact with and (suspected) exposure to COVID-19; Z87.891 Personal history of nicotine dependence; Z79.899 Other long term (current) drug therapy
CPT/HCPCS: 87635; 97162; 99285

== ENCOUNTER 2023-11-04 13:55 | Emergency (ER) | payer MEDICAID, SELFPAY ==
[2023-11-04 14:04] VITALS: BP 121/79; BP 130/90; PULSE 104; PULSE 106; RESP 18; TEMP 37; O2SAT 96; BMI 20.9
--- NOTE | 2023-11-04 14:33 | ED_ITS ---
HPI - General Adult General Chief complaint: General Medical Stated complaint: SORES ON LEGS/BUTTOCKS Time Seen by Provider: 11/04/23 14:15 Source: EMS Mode of arrival: EMS Limitations: other (Poor historian) History of Present Illness HPI narrative: Patient comes to the emergency room via ambulance from patient's daughter's house. According to the patient, the daughter called but she does not know why. EMS reports that the patient is not doing well at home, has open sores on the buttocks, seems that the family is unable to care for the patient and patient is unable to care for herself. Patient is currently homeless. Patient is poor historian Related Data Home Medications Medication Instructions Recorded Confirmed methadone 10 mg/mL oral concentrate 80 mg PO DAILY 07/28/23 08/09/23 baclofen 10 mg tablet 10 mg PO BID 10/23/23 10/23/23 ferrous sulfate 325 mg (65 mg 325 mg PO BID 10/23/23 10/23/23 iron) tablet folic acid 1 mg tablet 1 mg PO DAILY 10/23/23 10/23/23 Previous Rx's Medication Instructions Recorded acetaminophen 325 mg tablet 650 mg (2 x 325 mg) PO Q6H PRN 08/15/23 Pain, Mild (Pain Scale 1-3) #60 tabs colostomy bags 3 #30 ea 08/15/23 docusate sodium 100 mg capsule 100 mg PO BID #180 caps 08/15/23 (Colace) ferrous sulfate 324 mg (65 mg 324 mg PO DAILY #90 tabs 08/15/23 iron) tablet,delayed release multivitamin 1 tab PO DAILY #90 tabs 08/15/23 doxycycline hyclate 100 mg capsule 100 mg PO BID #56 caps 09/05/23 nicotine 21 mg/24 hr daily 21 mg transdermal DAILY #30 ea 09/05/23 transdermal patch oxycodone 5 mg tablet 10 mg (2 x 5 mg) PO Q6H PRN Pain, 09/08/23 Moderate(Pain Scale 4-6) #12 tabs cephalexin 500 mg capsule 500 mg PO QID 10 days #40 caps 10/22/23 doxycycline hyclate 100 mg tablet 100 mg PO BID #20 tabs 10/22/23 Allergies Allergy/AdvReac Type Severity Reaction Status Date / Time codeine [Codeine] Allergy Intermediate ITCHING, Verified 08/15/23 23:00 VOMTING, THROAT SWELLS tramadol [TRAMADOL] Allergy Intermediate BODY Verified 08/15/23 23:00 SWELLING Review of Systems 2 Review of Systems: Complaining of open wounds the buttocks Yes Other (Poor historian) [facility] Past Medical History Medical History Mood disorder History of osteomyelitis (~08/15/23) Cocaine use disorder Opioid use disorder Anemia Polysubstance (including opioids) dependence, daily use Drug abuse in remission Asthma Surgical History Hx of surgical procedure (~08/12/23) Colostomy in place History of spinal fusion Family History Family History Other Opioid use disorder Social History Social History Household Members: None Household Members Other:: homeless Housing: Homeless Housing Other:: homeless Do you presently have visiting nurse or other home services: No Unable to assess alcohol history related to: Refusing to respond Alcohol intake: never Patient Tobacco Use Status: Former Tobacco user Tobacco use type: Cigarette Cigarettes Per Day: 2 Smoked in Last 30 Days: Yes Use of substances other than those prescribed or required for medical reasons: Unknown Substance Use Type: Crack/Cocaine and Heroin Advance Directives: Yes Advance Directives on File: Yes Advance Directives Date on File: 06/16/23 service: No Physical Exam ED Vital Signs: Vital Signs - 24 hr 11/04/23 14:04 11/04/23 15:45 11/04/23 15:46 Temperature 98.6 F 98.2 F Pulse Rate 104 H 93 Respiratory Rate 18 14 Blood Pressure 121/79 105/72 Pulse Oximetry 96 100 Oxygen Delivery Method Room Air Room Air BMI result Body Mass Index 20.9 Const Other: Appearance: Alert. Disheveled, not willing to answer questions, occasionally yes/no, disheveled, strong urine smell Eyes: Pupils equal, round and reactive to light. ENT: Pharynx normal. Neck: Normal inspection. Neck supple. No lymph nodes noted. No crepitus CVS: Normal heart rate and rhythm. Pulses normal. Normal S1 and S2 Respiratory: No respiratory distress. Breath sounds normal. No Wheezing. No rales Abdomen: Soft and nontender. No rigidity. No distention. Skin: Skin warm and dry. Patient has chronic decubitus wounds see picture below Extremities: Bilateral lower extremity leg swelling and erythema worsen the right leg Neuro: Oriented X 3. No motor deficit. No sensory deficit. Moving all extremities. No slurred speech. CN 2 through 12 grossly intact Psych: calm, cooperative, normal affect Medications Administered Discontinued Medications Generic Name Dose Route Start Last Admin Trade Name Freq PRN Reason Stop Dose Admin Sodium Chloride 2,000 mls @ 999 mls/hr 11/04/23 14:31 11/04/23 15:43 Ns IVCONT 11/04/23 16:31 999 mls/hr .Q2H1M ONE Administration Medical Decision Making Medical Decision Making [facility] Narrative: -my interpretation of labs, normal white blood cell count. Hemoglobin 9.3. However chronic for the patient patient's chemistry within normal limits. Albumin low. -patient's urinalysis U tox pending. At this time, patient's vitals are stable, no fever, no tachycardia, sepsis not suspected. -per patient's nurse will has had in the past, the current lesion in the buttocks looks much better. -case management and physical therapy evaluation were offered. Patient refused, patient wants to leave against medical advice. -I reviewed patient's past medical records. Unfortunately, although people are trying to help her, patient keeps leaving against medical advice, either from the inpatient floor or from the ED. -patient is awake, alert and oriented x3, patient refusing to stay, patient will be leaving against medical advise Differential Diagnosis Differential Diagnoses: The differential diagnosis associated with the presentation includes (Osteomyelitis, failure to thrive, deconditioning) Admission/Observation Consideration of admission/observation: Escalation of care including admission/observation considered (Case management was offered patient declined) Lab Data [facility] Lab Attestation statement: I reviewed the patient's lab results. 11/04/23 15:11 11/04/23 15:11 Labs: Lab Results 11/04/23 11/04/23 Range/Units 15:09 15:11 WBC 8.1 (4.8-10.8) X10*3/uL RBC 4.12 L (4.20-5.50) X10*6/uL Hgb 9.3 L (12.0-16.0) g/dl Hct 32.1 L (37.0-47.0) % MCV 77.9 L (80.0-98.0) fL MCH 22.6 L (27.0-33.0) pg MCHC 29.0 L (31.0-35.0) g/dl RDW 18.0 H (11.0-16.0) % Plt Count 613 H (160-400) X10*3/uL MPV 9.3 L (9.4-12.3) fL Immature Gran % (Auto) 0.2 (0.0-0.4) % Neut % (Auto) 69.6 (45-73) % Lymph % (Auto) 22.4 (20-40) % [place] % (Auto) 4.7 (2-11) % Eos % (Auto) 2.5 (0-4) % Baso % (Auto) 0.6 (0-2) % Lymph # (Auto) 1.8 (1.2-4.9) X10*3/uL [place] # (Auto) 0.4 (0.1-1.2) X10*3/uL Eos # (Auto) 0.2 (0.0-0.4) X10*3/uL Baso # (Auto) 0.1 (0.0-0.2) X10*3/uL Abs Immat Gran (auto) 0.02 (0.00-0.03) X10*3/uL Absolute Neuts (auto) 5.7 (2.0-8.3) x10*3/uL Absolute Nucleated RBC 0.000 (0.0-0.012) X10*3/uL Nucleated RBC % (auto) 0.0 (0.0-0.2) /100WBC ESR 89 H (0-20) MM/HR PT 12.4 (11.1-13.3) SEC INR 1.0 (0.9-1.1) Sodium 143 (135-145) mmol/L Potassium 3.7 D (3.3-5.1) mmol/L Chloride 105 (96-108) mmol/L Carbon Dioxide 29 (22-29) mmol/L Anion Gap 13 (12-20) BUN 10 (9-16) mg/dL Creatinine 0.65 (0.5-1.4) mg/dL Estim Creat Clear Calc 87.6 Estimated GFR > 60 Random Glucose 92 (60-115) mg/dL Lactic Acid 1.3 (0.5-2.0) mmol/L Calcium 9.1 (8.4-10.2) mg/dL Magnesium 2.3 (1.6-2.6) mg/dL Total Bilirubin 0.3 (0.0-1.0) mg/dL Direct Bilirubin 0.2 (0.0-0.5) mg/dL AST 13 (5-31) U/L ALT 8 (0-31) U/L Alkaline Phosphatase 112 (39-117) U/L C-Reactive Protein 10.82 H (< or = 0.50) mg/dL Total Protein 8.0 (6.5-8.0) g/dL Albumin 2.9 L (3.5-5.0) g/dL TSH 0.39 (0.32-4.0) uIU/mL Ethyl Alcohol < 10 mg/dL COVID-19 ([place]GR[facility]) Negative (Negative) COVID-19 Clin Com See Note Influenza Type A ([place]) Negative (Negative) Influenza Type B ([place]UST) Negative (Negative) Influenza A & B Note See Note Discharge Plan Discharge Clinical Impression: Adult failure to thrive, Chronic wound, Chronic pain Patient Disposition: Left Against Medical Advice Instructions: Chronic Wounds (ED) Additional Instructions: Please follow-up with your primary care physician tomorrow. If you have any worsening or new symptoms, please return to the emergency room or call 911 Prescriptions: No Action (DME) colostomy bags 3 misc See Rx Instructions .ROUTE .MEDSUPPLY Qty: 30 2RF Rx Instructions: As directed acetaminophen 325 mg Tablet 650 mg PO Q6H PRN (Reason: Pain, Mild (Pain Scale 1-3)) Qty: 60 0RF ferrous sulfate 324 mg (65 mg iron) tablet,delayed release (DR/EC) 324 mg PO DAILY Qty: 90 0RF multivitamin Tablet 1 tab PO DAILY Qty: 90 0RF docusate sodium [Colace] 100 mg capsule 100 mg PO BID Qty: 180 0RF nicotine 21 mg/24 hr Patch 24 Hour 21 mg transdermal DAILY Qty: 30 0RF doxycycline hyclate 100 mg capsule 100 mg PO BID Qty: 56 0RF oxycodone 5 mg Tablet 10 mg PO Q6H PRN (Reason: Pain, Moderate(Pain Scale 4-6)) Qty: 12 0RF Rx Instructions: Partial Fill upon patient request. cephalexin 500 mg capsule 500 mg PO QID 10 Days Qty: 40 0RF doxycycline hyclate 100 mg tablet 100 mg PO BID Qty: 20 0RF baclofen 10 mg tablet 10 mg PO BID ferrous sulfate 325 mg (65 mg iron) tablet 325 mg PO BID folic acid 1 mg tablet 1 mg PO DAILY methadone 10 mg/mL Concentrate 80 mg PO DAILY Referrals: Jennifer Arrington MD [Physician] - 11/05/23
[2023-11-04 15:18] LABS: MANUAL DIFF FLAG NO
--- NOTE | 2023-11-04 15:24 | PC.NURSE ---
Pt comes to ED, falls asleep easily but awakes to voice. 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 Moist dry clean dressing applied. Left buttock with stage 2 noted. DCD applied. Excoriation to skin around and inner legs. Colostomy noted with old dried feces and taped around pts torso, tape and colostomy removed and new appliance applied, stoma pink in appearance. Skin around stoma without redness or s/sx infection. 20g to right outer AC placed, labs obtained. Blood culture x [address] Gonzalez d/t difficult peripheral access. Pt states 10/10 whole body pain. Sleepy but denies recent drug use and reports last use x1 month ago. On methadone however not dosed for a few days per pt. Pt positioned on side.
[2023-11-04 15:27] LABS: Basophils Absolute Auto 0.1 X10*3/uL (0.0-0.2); Basophils Percent Auto 0.6 % (0-2); Eosinophils Absolute Auto 0.2 X10*3/uL (0.0-0.4); Eosinophils Percent Auto 2.5 % (0-4); Hematocrit 32.1 % (37.0-47.0); Hemoglobin 9.3 g/dl (12.0-16.0); Imm Gran Abs Auto 0.02 X10*3/uL (0.00-0.03); Imm Gran Pct Auto 0.2 % (0.0-0.4); Lymphocytes Absolute Auto 1.8 X10*3/uL (1.2-4.9); Lymphocytes Percent Auto 22.4 % (20-40); Mean Corpuscular Hemoglobin 22.6 pg (27.0-33.0); Mean Corpuscular Volume 77.9 fL (80.0-98.0); Mean Platelet Volume 9.3 fL (9.4-12.3); Monocytes Absolute Auto 0.4 X10*3/uL (0.1-1.2); Monocytes Percent Auto 4.7 % (2-11); Neutrophils Absolute Auto 5.7 x10*3/uL (2.0-8.3); Neutrophils Percent Auto 69.6 % (45-73); Platelet Count 613 X10*3/uL (160-400); Red Blood Count 4.12 X10*6/uL (4.20-5.50); White Blood Count 8.1 X10*3/uL (4.8-10.8)
[2023-11-04 15:33] LABS: Lactic Acid 1.3 mmol/L (0.5-2.0)
[2023-11-04 15:38] LABS: Alanine Aminotransferase 8 U/L (0-31); Albumin Level 2.9 g/dL (3.5-5.0); Alkaline Phosphatase 112 U/L (39-117); Anion Gap 13 (12-20); Aspartate Amino Transferase 13 U/L (5-31); Bilirubin Direct 0.2 mg/dL (0.0-0.5); Bilirubin Total 0.3 mg/dL (0.0-1.0); Blood Urea Nitrogen 10 mg/dL (9-16); Calcium 9.1 mg/dL (8.4-10.2); Carbon Dioxide 29 mmol/L (22-29); Chloride 105 mmol/L (96-108); Creatinine Clr Calc Pharmacy 87.6; Estimated Glomerular Filt Rate > 60; Glucose Random 92 mg/dL (60-115); Magnesium 2.3 mg/dL (1.6-2.6); Potassium 3.7 mmol/L (3.3-5.1); Sodium 143 mmol/L (135-145)
[2023-11-04 15:43] LABS: C Reactive Protein 10.82 mg/dL (< or = 0.50); Ethanol < 10 mg/dL; Prothrombin Time 12.4 SEC (11.1-13.3)
[2023-11-04] MEDS: 0.9 % Sodium Chloride 2,000 ML 999 ML IVCONT (15:43)
[2023-11-04 15:44] LABS: COVID-19 Test Negative (Negative); IDNOW Serial# 08D9AD1C; IDNOW Serial# 58CA691E
[2023-11-04 15:45] VITALS: BP 105/72; PULSE 93; RESP 14; O2SAT 100
[2023-11-04 15:45] LABS: Influenza A Negative (Negative); Influenza B2 Negative (Negative)
[2023-11-04 15:46] VITALS: TEMP 36.8
[2023-11-04 15:58] LABS: TSH reflex Free T4 0.39 uIU/mL (0.32-4.0)
[2023-11-04 16:26] LABS: Erythrocyte Sedimentation Rate 89 MM/HR (0-20)
--- NOTE | 2023-11-04 17:14 | PC.NURSE ---
Pt yelling req pain meds, tylenol ordered and offered, pt declines. Req then to leave AMA, pt educated on risk and multiple times stated wanting to leave despite risk spoken about. Pt dressed with dry clothes in locker room and assisted in wheelchair. Then pt stating unsure of wanting to leave. Pt calling family members. Received phone call of unk person who stated she will meet them down the street. Pt wheeled herself out of ED without d/c paperwork.
== END 2023-11-04 17:20 | disposition left against medical advice (07) ==
PROVIDERS: Emergency Provider Emergency Medicine
DX: R62.7 Adult failure to thrive (principal); M79.10 Myalgia, unspecified site; G89.29 Other chronic pain; Z11.52 Encounter for screening for COVID-19; Z20.822 Contact with and (suspected) exposure to COVID-19; Z79.899 Other long term (current) drug therapy; Z87.891 Personal history of nicotine dependence
CPT/HCPCS: 36415; 51701; 80048; 80076; 80307; 83605; 83735; 84443; 85025; 85610; 85652; 86140; 87040; 87502; 87635; 99283; 99284